=== PATIENT | female | born 1935 | race Caucasian/White ===

== ENCOUNTER → 2016-04-15 | Outpatient (REF) | payer OTHER ==
[~2016-04-15] MED LIST: *BLDWK7; /ALEN7SOL OR; /ESOM40CA OR; /ESOM40CA PO; /LOR25TA OR; /WARF25TA PO; /ZIAC5TA PO; ACTONEL; ACTONEL35 PO; ALPR0.5T3 OR; AMBI10TA PO; AMBI5TAB OR; AMBIEN; AMBIEN10 PO; AMBIENCR PO; AMITRIP25 PO; ANEXIA; ATARAX25 PO; ATARAX50 PO; ATENOLOL50 PO; AVAPRO150 PO; AVELOX PO; AZELASTINE SPRAY; B-6 PO; BACTRIMDS PO; BISO10TA2 OR; BISOPROLOL PO; CALC500T49 PO; CALCCHW12 OR; CEFTIN500 PO; CELE20TA OR; CELEBRE200 PO; CENTRUM SILVER PO; CIPRO500 PO; CRESTOR5 PO; DOXEPIN PO; DOXYCYC100 PO; DURAGE TOPICAL; ERYTHRO PO; EXCETAB OR; FELO5TAB4 OR; FERR325T OR; FERR325T PO; FERROUS325 PO; FISH1000 OR; FLECTOR1.3 TOP; FLEXERIL PO; FLON0.05; FLONASESPR NASAL; FOSAMAX70 PO; FURO20TA2 OR; HCTZ25 PO; HYDROCHLOROTHIAZIDE PO; LASI20TA OR; LESCOLXL80 PO; LEVA500T OR; LIDODERM PATCH; LIDODERM PATCH TOP; LIPITOR20 PO; LIPITOR40 PO; MAVIK2 PO; METAMUCIL; MULTIVIT PO; MYCELEXTRO PO; MYLATAB; NASACORT; NASACORT AQ; NASACORT INH; NASACORT NASALLY; NASONEX NASAL; NEUR100C OR; NEUR400C OR; NEXIUM; NEXIUM40 PO; PRAVACHOL2 PO; QUESTRAN; QUESTRAN PO; ROXICET PO; SERZONE PO; SING10TA31 OR; THERGRAN; TRAM50TA2 OR; TRAZ0DON5 PO; TRAZODON15 PO; TRICOR145 PO; TRICOR160 PO; TUSSIONEX PO; TYLE500T53 OR; TYLENOLCOD PO; VICODIN PO; VICODIN-ES PO; VICODINES TAB OR; VIT D 2000 OR; VITA-113 PO; VITA100T OR; VITA400C OR; VITACAP31 PO; VITAMIN B 6; VITAMIN B-6 PO; VITAMIN E PO; VOLT1GEL EXT; VOLT1GEL TOP; VYTORIN40 PO; ZIAC; ZIAC10 PO; ZOCO40TA OR; ZOCO40TA PO; ZOCOR; ZOCOR40 PO; [UNRECOGNIZED DRUG - CODE] TOPICAL; [UNRECOGNIZED DRUG - OTHER] PO; [UNRECOGNIZED DRUG - OTHER] PO; [UNRECOGNIZED DRUG - OTHER] PO
[2016-04-15 18:47] LABS: BASO % 0.4 % (0.0-1.0); EOS # 0.1 K/mm3 (0.0-0.50); FERRITIN 917 NG/ML (8-252); LARGE UNSTAINED CELL # 0.1 K/mm3 (0.0-0.4); LARGE UNSTAINED CELL % 1.4 % (0.0-4.0); LYMPH # 1.7 K/mm3 (1.5-4.5); LYMPH % 24.2 % (24.0-44.0); MEAN CORPUSCULAR HEMOGLOBIN 30.8 pg (27.0-33.0); MEAN CORPUSCULAR VOLUME 96.1 fl (80.0-96.0); MONO # 0.3 K/mm3 (0.0-0.8); MONO % 3.7 % (0.0-5.0); NEUTROPHILS % 69.3 % (36.0-66.0); PERCENT SATURATION 16.4 % (13.2-37.4); PLATELET COUNT, AUTOMATED 272 k/mm3 (150-450); RED CELL DISTRIBUTION WIDTH 13.2 % (11.5-14.5); TOTAL IRON BINDING CAPACITY 274 UG/DL (250-450); TOTAL PROTEIN 7.2 GM/DL (6.4-8.2); WHITE BLOOD COUNT 7.2 K/mm3 (4.0-10.0)
[2016-04-19 12:55] LABS: ALBUMIN % 58.4 % (55.8-66.1); GAMMA GLOBULIN % 10.9 % (11.1-18.8)
== END ==
LOC: M SFHCPLAZ 15:08
PROVIDERS: ATTEND Family Medicine
DX: D50.9 Iron deficiency anemia, unspecified (principal); R73.01 Impaired fasting glucose; E55.9 Vitamin D deficiency, unspecified
CPT/HCPCS: 36415; 82306; 82728; 83036; 83550; 83970; 84165; 85025; G0463

== ENCOUNTER 2016-06-28 12:15 | Inpatient (IN) | payer OTHER ==
[~2016-06-28] VITALS: Ht 157.5 cm; Wt 77.0 kg
[2016-06-28] MEDS ORDERED: PARO-39 PO (12:45)
[2016-06-28] MEDS ORDERED: CHOL4PKT PO (12:45)
[2016-06-28] MEDS ORDERED: FLUTISP (12:45)
[2016-06-28] MEDS ORDERED: COLA100C3 PO (12:45)
[2016-06-28] MEDS ORDERED: CLON0.5T PO (12:45)
[2016-06-28] MEDS ORDERED: UNIS25TA2 PO (12:45)
[2016-06-28] MEDS ORDERED: CRES40TA PO ×2 (12:45→16:04)
[2016-06-28] MEDS ORDERED: REGL5TAB2 PO (12:45)
[2016-06-28] MEDS ORDERED: BIOT50004 PO (12:45)
[2016-06-28] MEDS ORDERED: SLOWTAB2 PO (12:45)
[2016-06-28] MEDS ORDERED: NS 500 ML IV ONE (13:45)
[2016-06-28 14:02] LABS: BASO % 0.2 % (0.0-1.0); EOS # 0.1 K/mm3 (0.0-0.50); EOS % 0.5 % (0.0-3.0); LARGE UNSTAINED CELL # 0.1 K/mm3 (0.0-0.4); LARGE UNSTAINED CELL % 0.8 % (0.0-4.0); LYMPH # 1.4 K/mm3 (1.5-4.5); LYMPH % 10.2 % (24.0-44.0); MEAN CORPUSCULAR HEMOGLOBIN 31.5 pg (27.0-33.0); MEAN CORPUSCULAR HGB CONC 31.3 g/dl (32.0-36.5); MEAN CORPUSCULAR VOLUME 100.7 fl (80.0-96.0); MONO # 0.7 K/mm3 (0.0-0.8); MONO % 5.2 % (0.0-5.0); NEUTROPHILS # 10.5 K/mm3 (1.8-7.7); NEUTROPHILS % 83.1 % (36.0-66.0); PLATELET COUNT, AUTOMATED 235 k/mm3 (150-450); RED CELL DISTRIBUTION WIDTH 13.1 % (11.5-14.5); WHITE BLOOD COUNT 12.6 K/mm3 (4.0-10.0)
[2016-06-28 14:25] LABS: ALBUMIN 3.6 GM/DL (3.2-5.2); ALBUMIN/GLOBULIN RATIO 1.29 (1.00-1.93); ALKALINE PHOSPHATASE 59 U/L (45-117); ALT/SGPT 18 U/L (12-78); ANION GAP 8 MEQ/L (8-16); AST/SGOT 18 U/L (15-37); BILIRUBIN,DIRECT < 0.1 MG/DL (0.0-0.2); BILIRUBIN,TOTAL 0.3 MG/DL (0.2-1.0); BLOOD UREA NITROGEN 19 MG/DL (7-18); CALCIUM LEVEL 9.4 MG/DL (8.8-10.2); CARBON DIOXIDE LEVEL 28 MEQ/L (21-32); CHLORIDE LEVEL 102 MEQ/L (98-107); CREATININE FOR GFR 0.76 MG/DL (0.55-1.02); GLOMERULAR FILTRATION RATE > 60.0 (>39); GLUCOSE, FASTING 113 MG/DL (83-110); POTASSIUM SERUM 4.4 MEQ/L (3.5-5.1); SODIUM LEVEL 138 MEQ/L (136-145); TOTAL PROTEIN 6.4 GM/DL (6.4-8.2)
--- NOTE | 2016-06-28 14:27 | REP ---
CT HEAD WITHOUT CONTRAST: HISTORY: Altered mental status. COMPARISON: 06/21/2013 An area of decreased attenuation is present in the right thalamus. This represents an old lacunar infarction. Areas of decreased attenuation are present in the periventricular and subcortical white matter. This represent small vessel ischemic disease. There is no intraparenchymal hemorrhage, mass, or midline shift. The ventricular system and cortical sulci are dilated consistent with minimal volume loss. There is no extracerebral collection. The sinuses are clear. IMPRESSION: 1. 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 2. Small vessel ischemic disease. 3. Minimal volume loss. Signed by Clyde Plaza MD 06/28/2016 02:32 P
[2016-06-28 14:37] LABS: ABG BASE EXCESS 0.8 (-2.0-2.0); ABG HCO3 25.2 MEQ/L (22.0-26.0); ABG PARTIAL PRESSURE CO2 39.7 mmHg (35.0-45.0); ABG PARTIAL PRESSURE O2 89.9 mmHg (75.0-100.0); ABG STANDARD HCO3 25.2 MEQ/L (22.0-26.0); ABG TOTAL CO2 26.4 MEQ/L (23.0-31.0); ABG pH (ARTERIAL) 7.421 UNITS (7.350-7.450)
--- NOTE | 2016-06-28 14:39 | REP ---
Portable chest, single AP view, the patient semi upright: Comparison is 08/05/2014. The lung benites are clear. Cardiac size is normal. There is an incomplete inspiratory effort. There is a cervical spine stabilization plate, unchanged. There are multiple surgical clips superimposed over the left upper chest, likely in the left axilla, unchanged. There is osteoarthritis and chronic impingement of the shoulders bilaterally, unchanged. Impression: There are no acute cardiopulmonary findings. Signed by Franki Foster MD 06/28/2016 02:30 P
--- NOTE | 2016-06-28 14:50 | REP ---
RIGHT ANKLE: Four views of the right ankle are performed. There is a nondisplaced fracture of the distal aspect of the fibula. There is widening of the lateral ankle mortise. No other fracture or dislocation is seen. There is inferior calcaneal spurring. IMPRESSION: Nondisplaced fracture of the distal lateral malleolus. Widened lateral mortise. Signed by Franki Best MD 06/28/2016 03:57 P
[2016-06-28] MEDS ORDERED: MORPHINE 2 MG/ML 1ML SYRINGE IV ONE (15:00)
[2016-06-28 15:43] LABS: METHADONE URINE NEGATIVE (NEGATIVE)
[2016-06-28] MEDS ORDERED: EXCETAB42 PO (15:55)
[2016-06-28] MEDS ORDERED: HYDR-3719 PO (15:55)
[2016-06-28] MEDS ORDERED: FOSA70TA PO (15:55)
[2016-06-28] MEDS ORDERED: GABA600T PO (16:01)
[2016-06-28] MEDS ORDERED: FURO20TA2 PO (16:01)
[2016-06-28] MEDS ORDERED: CALCTAB68 PO (16:01)
[2016-06-28] MEDS ORDERED: FERR325T PO (16:01)
[2016-06-28] MEDS ORDERED: MAGN400T5 PO (16:01)
[2016-06-28] MEDS ORDERED: LIDO5TD TOP (16:01)
[2016-06-28] MEDS ORDERED: CHOL4POW4 PO (16:01)
[2016-06-28] MEDS ORDERED: NEXI40CA PO (16:01)
[2016-06-28] MEDS ORDERED: BIOT10005 PO (16:01)
[2016-06-28] MEDS ORDERED: FLON1SPR (16:01)
[2016-06-28] MEDS ORDERED: BISO10TA6 PO (16:01)
[2016-06-28] MEDS ORDERED: PARO20TA3 PO (16:04)
[2016-06-28] MEDS ORDERED: TRAZ100T4 PO (16:04)
[2016-06-28] MEDS ORDERED: LOPE2TAB PO (16:04)
[2016-06-28] MEDS ORDERED: VITA200015 PO (16:06)
[2016-06-28] MEDS ORDERED: VITA10002 PO (16:06)
[2016-06-28] MEDS ORDERED: POTA10CA PO (16:06)
--- NOTE | 2016-06-28 16:27 | REP ---
RIGHT KNEE, FIVE VIEWS: Five views of the right knee were performed. There is no acute fracture or dislocation. Total knee prosthesis is in place with no abnormal adjacent osseous lucency. IMPRESSION: No acute fracture or dislocation. Signed by Franki Best MD 06/29/2016 09:42 A
--- NOTE | 2016-06-28 16:31 | REP ---
PELVIS AND BILATERAL HIPS: AP view of the pelvis and two views of each hip are performed. There is no acute fracture or dislocation. There are degenerative changes of the pubic symphysis with spurring and subchondral sclerosis. There are mild degenerative changes of the hips. There are moderate degenerative changes of the sacroiliac joints. IMPRESSION: No acute fracture or dislocation. Signed by Franki Best MD 06/29/2016 09:42 A
--- NOTE | 2016-06-28 16:47 | REP ---
RIGHT LOWER LEG: AP and lateral views of the right lower leg are performed. There is a nondisplaced fracture of the distal end of the fibula without other evidence of acute fracture or dislocation. IMPRESSION: Nondisplaced fracture distal fibula. Signed by Franki Best MD 06/29/2016 09:42 A
[2016-06-28] MEDS ORDERED: FLUTICASONE PROP 0.05% NASAL SPRAY 16 GM (FLONASE) PRN (17:30)
[2016-06-28] MEDS ORDERED: LOPERAMIDE 2 MG CAP PO PRN (17:30)
[2016-06-28] MEDS ORDERED: EXCEDRIN MIGRAINE TABLET PO PRN (17:30)
[2016-06-28] MEDS ORDERED: ENOXAPARIN 40 MG/0.4 ML SYRINGE (J1650) SC SCH (18:00)
--- NOTE | 2016-06-28 18:25 | HPEPDOC ---
General Date of Admission Jun 28, 2016 at 16:30 Primary Care Physician: Jorge Fischer M.D. Attending Physician: ZOE ELKINS Chief Complaint The patient is a 80-year-old female admitted with a reason for visit of Ankle Fx. Source: Patient, Family, Other (Friend) History of Present Illness Ms. Scherer was brought to the emergency department by her daughter as well as her friend who both accompany her in the ED room. Apparently she was in her usual state of health until yesterday when she began exhibiting extreme confusion. The daughter reports that she was in [employer] grocery store where she got her shopping cart stuck while going around a corner, and then because of confusion she did not know where she was, she did not recognize her daughter, she was unable to get herself "unstuck", and because she had begun to feel some weakness, she was sagging while holding onto the cart, and she required multiple persons and to be able to stand her back on her feet, and get her back to the car. Then, this morning she was getting out of bed, and apparently became weak and just fell down. She did not trip, she did not feel lightheaded or dizzy, she did not lose consciousness, she did not hit her head. After her fall however, she did experience pain in multiple areas of her body including both of her ankles, knees, and hips. An x-ray of her right ankle revealed a nondisplaced lateral malleoli fracture, however the remainder of the x-rays at these sites and did not reveal any additional fractures or serious injuries. CT of the head without contrast reveals an old right thalamic lacunar infarction, small vessel ischemic disease , minimal volume loss. EKG shows sinus rhythm with first-degree AV block which is similar to 08/05/2014. The daughter believes that her increased confusion may be from the patient taking 150 mg of trazodone nightly rather than her usual 100 mg, however she has been on this dose for approximately the past 3 weeks, and she has been on trazodone for a total of 2 months now. The ED already contacted orthopedic surgery, who has already placed her right ankle in a splint Home Medications Scheduled Acetaminophen/Hydrocodone (Hydrocodone/Acetaminophen 10-325 mg) 1 Tab Tab 2 TAB PO BID (Reported) Alendronate Sodium (Fosamax) 70 Mg Tab 70 MG PO QWEEK (Reported) SATURDAYS Biotin (Vitamin H) (Biotin) 1,000 Mcg Tab 1,000 MCG PO DAILY (Reported) Bisoprolol Fumarate (Bisoprolol Fumarate) 10 Mg Tab 10 MG PO DAILY (Reported) Calcium/Vitamin D (Calcium 600 + D 600-400 mg-Unit) 1 Tab Tab 1 TAB PO QHS ( Reported) Cholecalciferol (Vitamin D) 2,000 Unit Tab 2,000 UNIT PO DAILY (Reported) Cholestyramine (Cholestyramine) 4 Gm Pow 4 GM PO BID (Reported) Cyanocobalamin (Vitamin B-12) 1,000 Mcg Tab 1,000 MCG PO DAILY (Reported) Esomeprazole Magnesium Trihydr (Nexium) 40 Mg Cap 40 MG PO BID (Reported) Ferrous Sulfate (Ferrous Sulfate) 325 Mg Tab 325 MG PO BID (Reported) Furosemide (Furosemide) 20 Mg Tab 20 MG PO DAILY (Reported) Gabapentin (Gabapentin) 600 Mg Tab 1,200 MG PO BID (Reported) Magnesium Oxide (Magnesium Oxide 400) 400 Mg Tab 400 MG PO DAILY (Reported) Paroxetine (Paroxetine HCl) 20 Mg Tab 20 MG PO DAILY (Reported) Potassium Chloride (Klor-Con M10) 10 Meq Tabcr 10 MEQ PO DAILY (Reported) Rosuvastatin Calcium (Crestor) 40 Mg Tab 40 MG PO QHS (Reported) Trazodone HCl (Trazodone HCl) 100 Mg Tab 150 MG PO QHS (Reported) IS PRESCRIBED ONLY 100MG QHS. BUT HAS BEEN TAKING 150MG QHS Scheduled PRN (Excedrin Tension Headache 500-65 mg) 1 Tab Tab 1 TAB PO Q4H PRN PRN PAIN ( Reported) (Flonase Allergy Relief) 50 Mcg/Act Spr 1 SPRAY NA BID PRN PRN ALLERGIES ( Reported) Lidocaine (Lidocaine) 5 % Pad 2 PATCH TOP DAILY PRN PRN PAIN (Reported) APPLY TO LOWER BACK - PATIENT HAS RX FOR THIS MEDICATION BUT IS HAVING A HARD TIME GETTING DUE TO INS... STATES THAT THEY HELP HER A LOT AND WOULD LIKE TO START GETTING AGAIN Loperamide HCl (Loperamide HCl) 2 Mg Tab 2 MG PO PRN PRN PRN DIARRHEA (Reported ) Allergies Coded Allergies: Penicillins (Verified Allergy, Intermediate, RASH, 07/02/12) Penicillins Cross Reactors (Verified Allergy, Intermediate, RASH, 07/02/12) Aspirin (Verified Adverse Reaction, Severe, CAUSED SEVERE BRUISING, 07/02/12 ) Cyclobenzaprine (Verified Adverse Reaction, Unknown, to 10mg dose only, 06/28/16) Past Medical History Medical History The patient currently is a poor historian, and her daughter is not very familiar with her medical problems either, therefore history is obtained from a [employer]. Allergic rhinitis/chronic sinusitis status post sinus surgery with Dr. Mello 1997 Hypertension Depression/anxiety disorder GERD history of gastritis, most recent EGD 2012 with dilation, hyperplastic polyps-[place] Chronic idiopathic diarrhea Iron deficiency anemia History of melanoma excised by Dr. Dowling 1977 Impaired fasting glucose Osteoporosis Insomnia History of facial AK's lumbar DJD Bilateral supraspinatus tendinitis Bilateral carpal tunnel syndrome Vitamin D deficiency Adenomatous polyp by colonoscopy August 2008, and diverticulosis 04/2012-[facility] Mild AR, MR/LAD 3.8 cm/mildly dilated aortic root/diastolic dysfunction by TTE -[place] Minimal , volume loss, old right thalamic CVA 05/2013 CT head Cervical DJD status post C6 through 8 ACDF 09/14/2013-[place] Lumbar DJD Surgical History Total hysterectomy 1985 Left ring/pinky fingers" 1974 Right TKR 2008 Tonsillectomy/adenoidectomy 1958 Sinus surgery 1998 D&C 1974 Bladder suspension 1994 Cholecystectomy 2003 Carpal tunnel release left 2010 ACDF-[place] 2013 PLDF-[place]-(L2-S1 decompression, L4-S1 fusion) 2014 Family History Father at 73, alcoholic liver disease Mother at 59, breast cancer with double mastectomies She had 2 brothers, 4 sisters, 3 sons, 3 daughters Brother at age 63 was a smoker with COPD and lung cancer. Sister at age 57 with pulmonary embolus Sister at age 50 for COPD, smoker One daughter had arthritis and knee problems, otherwise the remainder of her children have no known medical problems Social History * Smoker: non-smoker Alcohol: Denies Drugs: denies Recent Travel/Sick Contacts: Denies: Recent sick contacts, Recent travel Review of Symptoms Constitutional: Reports: Chills (chronic), Lethargy, Weakness, Denies: Fever, Malaise, Night Sweats Eyes: Denies: Pain, Vision change Pulmonary: Denies: Cough, Dyspnea Cardiovascular: Denies: Chest Pain, Lt Headedness, Orthopnea, Palpitations, Paroxysmal Noc. Dyspnea Gastrointestinal: Reports: Diarrhea (chronic), Denies: Abdominal Pain, Nausea, Vomiting Genitourinary: Denies: Dysuria, Frequency, Incontinence, Retention Hematologic: Denies: Bleeding Excessively, Bruising Musculoskeletal: Reports: Back Pain, Foot Pain, Leg Pain, Neck Pain Neurological: Reports: Confusion, Denies: Change in speech, Numbness, Weakness Psych: Reports: Memory Issues, Mood Normal, Denies: Thoughts of Harming Other, Thoughts of Self Harm Physical Examination General Exam: Positive: Alert, No Acute Distress Eye Exam: Positive: Conjunctiva & lids normal, EOMI, PERRLA, Negative: Sclera icteric ENT Exam: Positive: Atraumatic, Mucous membr. moist/pink, Pharynx Normal Neck Exam: Positive: Supple, Negative: JVD, thyromegaly Chest Exam: Positive: Clear to auscultation, Normal air movement Heart Exam: Positive: Normal S1, Normal S2, Rate Normal, Regular Rhythm, Negative: Murmurs, Rubs Telemetry: Positive: AV Block (first-degree AV block), No significant arrhythmia, Sinus Abdomen Exam: Positive: Normal bowel sounds, Soft, Negative: Hepatospenomegaly, Tenderness Extremity Exam: Positive: Normal pulses, Swelling (left ankle does have some swelling), Tenderness (right ankle is currently in a splint), Negative: Clubbing, Cyanosis, Edema Skin Exam: Positive: Nl turgor and temperature, Negative: Breakdown, Lesion Neuro Exam: Positive: Cranial Nerves 3-12 NL, Normal Speech Psych Exam: Positive: Mood NL, Negative: Mental status NL, Oriented x 3 (she believes that it's 1978, although she does know her name, date of , and she knows that she is in house of the [facility]) Vital Signs Temperature 98.3, pulse 76, respiratory rate 18, blood pressure 112/54, pulse oximetry 94% on room air Laboratory Data Labs 24H Laboratory Tests 2 06/28/16 13:05: Acetaminophen Level 6.5L, Aspartate Amino Transf (AST/SGOT) 18, Alanine Aminotransferase (ALT/SGPT) 18, Alkaline Phosphatase 59, Total Bilirubin 0.3, Direct Bilirubin < 0.1, Albumin 3.6, Albumin/Globulin Ratio 1.29, Ammonia 20, Anion Gap 8, White Blood Count 12.6H, Red Blood Count 3.44L, Hemoglobin 10.8L, Hematocrit 34.7L, Mean Corpuscular Volume 100.7H, Mean Corpuscular Hemoglobin 31.5, Mean Corpuscular Hemoglobin Concent 31.3L, Red Cell Distribution Width 13.1, Platelet Count 235, Neutrophils (%) (Auto) 83.1H, Lymphocytes (%) (Auto) 10.2L, Monocytes (%) (Auto) 5.2H, Eosinophils (%) (Auto) 0.5, Basophils (%) ( Auto) 0.2, Neutrophils # (Auto) 10.5H, Lymphocytes # (Auto) 1.4L, Monocytes # ( Auto) 0.7, Eosinophils # (Auto) 0.1, Basophils # (Auto) 0.0, Calcium Level 9.4, Creatine Kinase MB 2.0, Creatine Kinase MB Relative Index 1.27, Ethyl Alcohol Level < 0.003, Glomerular Filtration Rate > 60.0, Large Unclassified Cells # 0.1 , Large Unclassified Cells % 0.8, Salicylates Level < 1.7L, Thyroid Stimulating Hormone (TSH) 0.888, Total Creatine Kinase 157, Total Protein 6.4, Troponin I < 0.02 06/28/16 14:23: Arterial Blood pH 7.421, Arterial Blood Partial Pressure CO2 39.7, Arterial Blood Partial Pressure O2 89.9, Arterial Blood Total CO2 26.4, Arterial Blood HCO3 25.2, Arterial Blood Base Excess 0.8, Arterial Blood Oxygen Saturation 97.5 , Blood Gas Bicarbonate Standard 25.2 06/28/16 14:33: Bedside Glucose (Misc Panel) 115H 06/28/16 14:36: Lactic Acid Level 1.0 06/28/16 15:13: Urine Amorphous Sediment , Urine Amphetamines Screen NEGATIVE, Urine Benzodiazepines Screen NEGATIVE, Urine Opiates Screen POSITIVEH, Urine Appearance CLEAR, Urine Color YELLOW, Urine pH 5.0, Urine Specific [place] 1.014 , Urine Protein NEGATIVE, Urine Glucose (UA) NEGATIVE, Urine Ketones NEGATIVE, Urine Urobilinogen 0.2, Urine Bilirubin NEGATIVE, Urine Leukocyte Esterase NEGATIVE, Urine Bacteria (Auto) NEGATIVE, Urine Barbiturates Screen NEGATIVE, Urine Blood NEGATIVE, Urine Calcium Carbonate Cryst(Auto) , Urine Calcium Oxalate Cryst (Auto) , Urine Calcium Phosphate Delilah (Auto) , Urine Cannabinoids Screen NEGATIVE, Urine Cellular Casts , Urine Cocaine Metabolite Screen NEGATIVE , Urine Cystine Crystals , Urine Granular Casts (Auto) , Urine Hyaline Casts ( Auto) 0, Urine Leucine Crystals , Urine Methadone Screen NEGATIVE, Urine Mucus ( Auto) SMALL, Urine Nitrite NEGATIVE, Urine Oval Fat Bodies (Auto) , Urine Phencyclidine Screen NEGATIVE, Urine RBC (Auto) 1, Urine Renal Epithelial Cells , Urine Sperm (Auto) , Urine Squamous Epithelial Cells 0, Urine Transitional Epithelial Cells , Urine Trichomonas (Auto) , Urine Triple Phosphate Cryst (Auto ) , Urine Tyrosine Crystals , Urine Uric Acid Crystals (Auto) , Urine WBC (Auto ) 1, Urine Waxy Casts (Auto) , Urine Yeast-Like Cells (Auto) CBC/BMP Laboratory Tests 06/28/16 13:05 Red Blood Count 3.44 L, Mean Corpuscular Volume 100.7 H, Mean Corpuscular Hemoglobin 31.5, Mean Corpuscular Hemoglobin Concent 31.3 L, Red Cell Distribution Width 13.1, Neutrophils (%) (Auto) 83.1 H, Lymphocytes (%) (Auto) 10.2 L, Monocytes (%) (Auto) 5.2 H, Eosinophils (%) (Auto) 0.5, Basophils (%) ( Auto) 0.2, Neutrophils # (Auto) 10.5 H, Lymphocytes # (Auto) 1.4 L, Monocytes # (Auto) 0.7, Eosinophils # (Auto) 0.1, Basophils # (Auto) 0.0 Microbiology Microbiology 06/28/16 Urine Culture, Received Pending Problems (1) Altered mental status Status: Acute (2) Ankle fracture, right Status: Acute Problem Text: Orthopedic surgeons have seen and evaluated her in the ED, the report is not available at this time. Will defer to them for her activity orders. Her right ankle is already splinted. (3) Hypertension Status: Chronic (4) Anxiety and depression Status: Chronic (5) Iron deficiency anemia Status: Chronic (6) Diarrhea Status: Chronic (7) Impaired fasting glucose Status: Chronic (8) Osteoporosis Status: Chronic (9) Insomnia Status: Chronic (10) Degenerative disc disease Status: Chronic (11) GERD (gastroesophageal reflux disease) Status: Chronic (12) Vitamin D deficiency Status: Chronic Plan / VTE VTE Prophylaxis Ordered?: Yes (Lovenox) Plan Plan Urine tox screen is appropriately positive for opiates, however the remainder is negative, UA is unremarkable (urine culture is pending), CT of the head is unremarkable for an etiology of confusion, chest x-ray is negative for acute findings, CMP shows normal liver enzymes, normal lactic acid, normal electrolytes, and normal cardiac enzymes, and a normal TSH, normal ammonia level , and her fingerstick glucose was found to be 115. ABG is within normal limits , CBC is only positive for leukocytosis which may be a stress reaction associated with her fractured ankle. We'll check a vitamin B12 and folate as well as an RPR for additional causes of altered mental status/advanced dementia, however, it is unlikely that these will reveal an etiology of her acute altered mental state. It is possible that her condition is caused by the increased dose of trazodone that she has been on, however since she has been on this increased dose for approximately 3 weeks, this may not be the causative factor. The daughter does not actually know when she started taking this increased dose, and 3 weeks is only as reported by the patient, therefore this history is questionable. Will admit the patient to [facility] for observation. We will hold her trazodone at this time, she has been on chronic long-term opiates since she has had all of her back and neck surgeries, and she has never had any prior episodes of altered mental status, therefore we will continue this for pain control. Her BUN was elevated upon admission, she was given a 500 mL bolus of normal saline, however clinically she does not appear to be significantly dehydrated and therefore we will continue her small dose of daily Lasix, and recheck her labs in the morning Attending Note Attending Note I, Zoe Elkins, have seen and examined the above patient and agree with the assessment and plan as documented above. Additionally, given the old lacunar infarct, and small vessel disease seen on the CT of her head, I wonder if potentially this represents another stepwise progression of possible underlying vascular dementia. If the patient does not improve with the holding of her trazodone, an MRI could be considered to rule out any acute infarct. SULAIMAN DUONG DO Jun 28, 2016 18:25 ZOE ELKINS Jun 28, 2016 20:56
[2016-06-28 19:34] LABS: MAGNESIUM LEVEL 1.9 MG/DL (1.8-2.4)
[2016-06-28 20:21] LABS: FOLATE > 24.0 NG/ML (>5.4); VITAMIN B12 LEVEL 1164 PG/ML (247-911)
--- NOTE | 2016-06-28 20:49 | CR ---
DATE OF CONSULTATION: 06/28/2016 REASON FOR CONSULTATION: Fall with right ankle pain. HISTORY OF PRESENT ILLNESS: 80-year-old female who apparently tripped and twisted her ankle at [employer], was able to ambulate home and then sometime today was confused or dizzy for unclear reasons and fell once again and was unable to walk so her family brought her here to [facility] and she was evaluated extensively by the emergency room staff and was found to have a right ankle fracture and I was called because of that finding. She only complains of isolated soreness of the outside aspect of the right ankle with some swelling. She does not complain of pain in her hips or left leg or her upper extremities. There is no new onset complaints of numbness or tingling in her upper or lower extremities but the family members do feel that she does not seem to be quite herself, she seems to be somewhat confused. Normally she is an independent ambulator, has a total knee arthroplasty on the right side done by Dr. Alan. She also has recovered from surgical spine surgery by Dr. Light and lumbar spine by Dr. Light. PAST MEDICAL HISTORY: Otherwise she has a past medical history of multiple falls in the past, chronic back pain, anxiety, history of high blood pressure, hypercholesterolemia, osteoporosis, gastroesophageal reflux disease, chronic diarrhea, anemia, history of melanoma. MEDICATIONS: Her medications include Nexium, magnesium, furosemide, Paxil, iron, Micro K, cholestyramine, Lasix, Fosamax, Crestor, bisoprolol. ALLERGIES: To medication PENICILLIN, ASPIRIN, DOXYCYCLINE, LIPITOR, FLEXERIL, ZANAFLEX, [place] PRO, AMBIEN. PAST SURGICAL HISTORY: Colonoscopy, history of right shoulder dislocation, cervical spine fusion, lumbar spine fusion, history of melanoma with multiple surgical interventions in her left back area with multiple skin grafts. Hysterectomy, right total knee arthroplasty, tonsils and adenoids, D C, hysterectomy, bladder suspension, cholecystectomy, left carpal tunnel release. REVIEW OF SYSTEMS: Chronic right shoulder pain, otherwise per the history of present illness. SOCIAL HISTORY: She does not smoke or drink alcohol. She lives with her . She has 3 daughters and 3 sons and 4 sisters and 2 brothers. When I examined her, she is a pleasant, alert female with some mild confusion but otherwise she appears to be complaining only f isolated soreness of the right ankle. Her temperature is 98.3, blood pressure 112/54, pulse 76, respirations 18, Oxygen sat on room air 94%. HEENT EXAM: Benign. NECK: Non-tender. LEFT HAND: She is missing her small and ring finger but she can make a full fist and extend her fingers otherwise, as she can on the opposite right hand. She does not have tingling or numbness in her upper extremities. She has difficulty elevating her right shoulder over her head with chronic troubles because of prior dislocation. The left shoulder she can elevate up over her head. HIPS: Non-tender to internal and external rotation and log rolling. EXTREMITIES: She has a healed right knee incision that is not swollen, it is stable. Distally, she has a posterior splint on her right ankle with a good dorsalis pedis pulse. She can move her toes with normal sensation. There is some swelling and tenderness on both sides of that right ankle. Left lower extremity otherwise is benign. LABORATORY: Showed a white count of 12.6, hematocrit 34.7, platelets of 235. Sodium 138, potassium 4.4, chloride 102, bicarbonate 28, BUN 19, creatinine 0.76. Sugar 113. Calcium 9.4. Liver function tests were unremarkable. Lactic acid was 1. Toxicology was negative except for opiates, probably from her recent pain medication. IMAGING: X-rays of her pelvis, hips, right femur and right tibia and fibula and her ankle shows there a small nondisplaced fracture of the distal fibula with some evidence of degenerative change in the right ankle. Reports some lateral joint space widening, but appears chronic secondary to her degenerative change. I feel this is generally intact. IMPRESSION: Right ankle fracture distal fibula that is nondisplaced. I would recommend nonsurgical management. She is in a posterior splint, probably get her into a Cam type walking boot with assistance of therapy when she is stable and her medical condition is appropriate for that. Otherwise we will keep her elevated for swelling control.
[2016-06-28] MEDS: **NOTE PATIENT COMMENT** MISC XX SCH (21:00)
[2016-06-28] MEDS: CHOLESTYRAMINE 4 GM PWD PKT PO SCH (21:23)
[2016-06-28] MEDS: GABAPENTIN 400 MG CAP PO SCH (21:24)
[2016-06-28] MEDS: CALCIUM/VITAMIN D 500 MG TAB PO SCH (21:25)
[2016-06-28] MEDS: PANTOPRAZOLE 40MG TAB (PROTONIX) PO SCH (21:25)
[2016-06-28] MEDS: FERROUS SULFATE 325MG TAB PO SCH (21:25)
[2016-06-28] MEDS: ROSUVASTATIN 10 MG TAB (CRESTOR) PO SCH (21:25)
[2016-06-28] MEDS: NORCO, ANEXSIA 5/325MG TABLET (HYDROcodone/ACETAMINOPHEN) PO SCH (21:32)
--- NOTE | 2016-06-28 21:49 | ECGEPIP ---
Stationary ECG Study [facility] - ED Test Date: 2016-06-28 Pat Name: WALDO ROMO Department: Room: - Gender: F Acting Professor: JYang : [id number] Requested By: MAHESH Beal Order Number: [id number] Reading MD: Devora Correa Measurements Intervals [place] Rate: 70 P: 12 NE: 223 QRS: 11 QRSD: 74 T: 11 QT: 348 QTc: 377 Interpretive Statements SINUS RHYTHM WITH FIRST DEGREE AV BLOCK SIMILAR 08/05/14 Electronically Signed On 06-28-2016 21:49:29 EDT by Devora Correa
[2016-06-28 22:00] VITALS: BP_SYST 150; BP_SYST 191; BP_DIAS 72; BP_DIAS 85
[2016-06-29] MEDS: ACETAMINOPHEN TAB 650MG DOSE (2X325MG) PO PRN (03:22)
[2016-06-29 06:00] VITALS: BP_SYST 157; BP_DIAS 74; BP_DIAS 90
[2016-06-29] MEDS: NORCO, ANEXSIA 5/325MG TABLET (HYDROcodone/ACETAMINOPHEN) PO SCH ×4 (06:08→18:03)
[2016-06-29 07:13] LABS: MEAN CORPUSCULAR HEMOGLOBIN 31.9 pg (27.0-33.0); MEAN CORPUSCULAR HGB CONC 32.8 g/dl (32.0-36.5); MEAN CORPUSCULAR VOLUME 97.4 fl (80.0-96.0); RED CELL DISTRIBUTION WIDTH 13.2 % (11.5-14.5); WHITE BLOOD COUNT 16.8 K/mm3 (4.0-10.0)
[2016-06-29 08:24] LABS: ANION GAP 7 MEQ/L (8-16); BLOOD UREA NITROGEN 11 MG/DL (7-18); CALCIUM LEVEL 9.4 MG/DL (8.8-10.2); CARBON DIOXIDE LEVEL 28 MEQ/L (21-32); CHLORIDE LEVEL 103 MEQ/L (98-107); CREATININE FOR GFR 0.66 MG/DL (0.55-1.02); GLOMERULAR FILTRATION RATE > 60.0 (>39); GLUCOSE, FASTING 141 MG/DL (83-110); POTASSIUM SERUM 3.8 MEQ/L (3.5-5.1); SODIUM LEVEL 138 MEQ/L (136-145)
--- NOTE | 2016-06-29 08:46 | IPNPDOC ---
Subjective Date Seen The patient was seen on 06/29/16. Subjective Chief Complaint/HPI Pt c/o achiness in her R foot/ankle. She denies other concerns. States that she fell and broke her ankle that is why it hurts. General: Denies: Fatigue Constitutional: Denies: Chills, Fever ENT: Denies: Head Aches Pulmonary: Denies: Cough, Dyspnea Cardiovascular: Denies: Chest Pain, Palpitations Gastrointestinal: Denies: Diarrhea, Nausea, Vomiting Musculoskeletal: Denies: Back Pain, Neck Pain Neurological: Denies: Weakness Psych: Reports: Memory Issues, Mood Normal Objective Physical Examination General Exam: Positive: Alert, No Acute Distress ENT Exam: Positive: Mucous membr. moist/pink Neck Exam: Positive: +2 carotid pulse wo bruit, Lymphadenopathy, Other, Supple , thyromegaly, Negative: JVD Chest Exam: Positive: Clear to auscultation, Normal air movement Heart Exam: Positive: Normal S1, Normal S2, Rate Normal, Regular Rhythm, Negative: Murmurs, Rubs Abdomen Exam: Positive: Normal bowel sounds, Soft, Negative: Hepatospenomegaly, Tenderness Extremity Exam: Positive: Normal pulses, Swelling (left ankle does have some swelling), Tenderness (right ankle is currently in a splint), Negative: Clubbing, Cyanosis, Edema Skin Exam: Positive: Nl turgor and temperature, Negative: Breakdown, Lesion Neuro Exam: Positive: Cranial Nerves 3-12 NL, Normal Speech Psych Exam: Positive: Mood NL, Negative: Mental status NL, Oriented x 3 (she believes that it's 1982, although she does know her name, date of , and she knows that she is in house of the [facility]) Assessment /Plan Problems (1) Altered mental status Status: Acute Response to Treatment: Stable (she believes that it's 1982, although she does know her name, date of , and she knows that she is in house of the [facility]) Problem Text: 06/29 CT head Neg, MS baseline not clear. At this time, she is aware of her circumstances aside from not knowing the year. She offers that she hasn't been able to answer that in sometime. JFW: met with [facility], states pt very confused, "twitching" at times, c/o JORGE since admission. Pt also states her "neck hurts" (no rigidity, no meningeal signs on exam). Will get LP, ? encephalitis/meningitis JFW: radiology unable to do LP until tomorrow, prob in evening (not acceptable) . Called neuro, spoke with Dr Rosa, he advises have anesthesia do LP. Spoke with Dr Dave, he agrees to see pt, case discussed (2) Fever Status: Acute Problem Specific Plan: Monitor Clinically Problem Text: Temp this am 101.1, WBC increased today from 12 to 16.8, CXR done 06/28 Neg, Urine culture pending, check Flu swab. (3) Ankle fracture, right Status: Acute Problem Text: 06/29 - Currently in Splint, Ortho recommended Cam type walking boot, ambulation, PT eval. 06/28 Orthopedic surgeons have seen and evaluated her in the ED, the report is not available at this time. Will defer to them for her activity orders. Her right ankle is already splinted. (4) Hypertension Status: Chronic Response to Treatment: Stable Problem Text: Monitor pressures, cont with Zebeta for now. (5) Anxiety and depression Status: Chronic Problem Specific Plan: Monitor Clinically (6) Iron deficiency anemia Status: Chronic Response to Treatment: Stable Problem Specific Plan: Monitor Clinically Problem Text: Baseline Hgb 11 - 12. (7) Insomnia Status: Chronic Response to Treatment: Stable Problem Specific Plan: Monitor Clinically Problem Text: Per H & P trazodone increased recently for sleep, it appears this order was generated in March of 2016. Plan/VTE VTE Prophylaxis Ordered?: Yes (Lovenox) Plan/Urinary Catheter Reason for insertion/continuin: Patient request VS, I&O, 24H, [facility] Vital Signs/I&O Vital Signs Date Time Temp Pulse Resp B/P Pulse Ox O2 Delivery O2 Flow Rate FiO2 06/29/16 06:08 18 06/29/16 06:00 104 157/90 06/29/16 06:00 101.1 96 Room Air I&O- Last 24 Hours up to 6 AM 06/29/16 06:00 Intake Total 740 ml Output Total 225 ml Balance 515 ml Laboratory Data 24H LABS Laboratory Tests 2 06/28/16 13:05: Acetaminophen Level 6.5L, Aspartate Amino Transf (AST/SGOT) 18, Alanine Aminotransferase (ALT/SGPT) 18, Alkaline Phosphatase 59, Total Bilirubin 0.3, Direct Bilirubin < 0.1, Albumin 3.6, Albumin/Globulin Ratio 1.29, Ammonia 20, Anion Gap 8, White Blood Count 12.6H, Red Blood Count 3.44L, Hemoglobin 10.8L, Hematocrit 34.7L, Mean Corpuscular Volume 100.7H, Mean Corpuscular Hemoglobin 31.5, Mean Corpuscular Hemoglobin Concent 31.3L, Red Cell Distribution Width 13.1, Platelet Count 235, Neutrophils (%) (Auto) 83.1H, Lymphocytes (%) (Auto) 10.2L, Monocytes (%) (Auto) 5.2H, Eosinophils (%) (Auto) 0.5, Basophils (%) ( Auto) 0.2, Neutrophils # (Auto) 10.5H, Lymphocytes # (Auto) 1.4L, Monocytes # ( Auto) 0.7, Eosinophils # (Auto) 0.1, Basophils # (Auto) 0.0, Calcium Level 9.4, Creatine Kinase MB 2.0, Creatine Kinase MB Relative Index 1.27, Ethyl Alcohol Level < 0.003, Glomerular Filtration Rate > 60.0, Large Unclassified Cells # 0.1 , Large Unclassified Cells % 0.8, Salicylates Level < 1.7L, Thyroid Stimulating Hormone (TSH) 0.888, Total Creatine Kinase 157, Total Protein 6.4, Troponin I < 0.02 06/28/16 14:23: Arterial Blood pH 7.421, Arterial Blood Partial Pressure CO2 39.7, Arterial Blood Partial Pressure O2 89.9, Arterial Blood Total CO2 26.4, Arterial Blood HCO3 25.2, Arterial Blood Base Excess 0.8, Arterial Blood Oxygen Saturation 97.5 , Blood Gas Bicarbonate Standard 25.2 06/28/16 14:33: Bedside Glucose (Misc Panel) 115H 06/28/16 14:36: Lactic Acid Level 1.0 06/28/16 15:13: Urine Amorphous Sediment , Urine Amphetamines Screen NEGATIVE, Urine Benzodiazepines Screen NEGATIVE, Urine Opiates Screen POSITIVEH, Urine Appearance CLEAR, Urine Color YELLOW, Urine pH 5.0, Urine Specific [place] 1.014 , Urine Protein NEGATIVE, Urine Glucose (UA) NEGATIVE, Urine Ketones NEGATIVE, Urine Urobilinogen 0.2, Urine Bilirubin NEGATIVE, Urine Leukocyte Esterase NEGATIVE, Urine Bacteria (Auto) NEGATIVE, Urine Barbiturates Screen NEGATIVE, Urine Blood NEGATIVE, Urine Calcium Carbonate Cryst(Auto) , Urine Calcium Oxalate Cryst (Auto) , Urine Calcium Phosphate Delilah (Auto) , Urine Cannabinoids Screen NEGATIVE, Urine Cellular Casts , Urine Cocaine Metabolite Screen NEGATIVE , Urine Cystine Crystals , Urine Granular Casts (Auto) , Urine Hyaline Casts ( Auto) 0, Urine Leucine Crystals , Urine Methadone Screen NEGATIVE, Urine Mucus ( Auto) SMALL, Urine Nitrite NEGATIVE, Urine Oval Fat Bodies (Auto) , Urine Phencyclidine Screen NEGATIVE, Urine RBC (Auto) 1, Urine Renal Epithelial Cells , Urine Sperm (Auto) , Urine Squamous Epithelial Cells 0, Urine Transitional Epithelial Cells , Urine Trichomonas (Auto) , Urine Triple Phosphate Cryst (Auto ) , Urine Tyrosine Crystals , Urine Uric Acid Crystals (Auto) , Urine WBC (Auto ) 1, Urine Waxy Casts (Auto) , Urine Yeast-Like Cells (Auto) 06/28/16 18:24: Folate > 24.0, Magnesium Level 1.9, Syphilis Serology NONREACTIVE, Vitamin B12 Level 1164H 06/29/16 07:44: Anion Gap 7L, Blood Urea Nitrogen 11, Creatinine 0.66, Sodium Level 138, Potassium Level 3.8, Chloride Level 103, Carbon Dioxide Level 28, Calcium Level 9.4, Glomerular Filtration Rate > 60.0 CBC/BMP Laboratory Tests 06/28/16 13:05 Red Blood Count 3.44 L, Mean Corpuscular Volume 100.7 H, Mean Corpuscular Hemoglobin 31.5, Mean Corpuscular Hemoglobin Concent 31.3 L, Red Cell Distribution Width 13.1, Neutrophils (%) (Auto) 83.1 H, Lymphocytes (%) (Auto) 10.2 L, Monocytes (%) (Auto) 5.2 H, Eosinophils (%) (Auto) 0.5, Basophils (%) ( Auto) 0.2, Neutrophils # (Auto) 10.5 H, Lymphocytes # (Auto) 1.4 L, Monocytes # (Auto) 0.7, Eosinophils # (Auto) 0.1, Basophils # (Auto) 0.0 06/29/16 06:29 Red Blood Count 3.59 L, Mean Corpuscular Volume 97.4 H, Mean Corpuscular Hemoglobin 31.9, Mean Corpuscular Hemoglobin Concent 32.8, Red Cell Distribution Width 13.2 06/29/16 07:44 Calcium Level 9.4 Microbiology Microbiology 06/28/16 Urine Culture, Received Pending DORCAS GUY PA-C Jun 29, 2016 08:46 Kwasi Bower MD Jun 29, 2016 13:01
[2016-06-29] MEDS ORDERED: LIDOCAINE 5% (LIDODERM) PATCH TOP PRN (09:00)
[2016-06-29] MEDS ORDERED: ENOXAPARIN 40 MG/0.4 ML SYRINGE (J1650) SC SCH (09:00)
[2016-06-29] MEDS: CHOLESTYRAMINE 4 GM PWD PKT PO SCH ×2 (09:04→20:43)
[2016-06-29] MEDS: POTASSIUM CHLORIDE 10 MEQ SR TABLET PO SCH (09:04)
[2016-06-29] MEDS: FUROSEMIDE 20 MG TAB PO SCH (09:05)
[2016-06-29] MEDS: GABAPENTIN 400 MG CAP PO SCH ×2 (09:05→20:43)
[2016-06-29] MEDS: PARoxetine 20 MG TAB PO SCH (09:05)
[2016-06-29] MEDS: MAGNESIUM OXIDE 400 MG TAB (MAG-OX) PO SCH (09:05)
[2016-06-29] MEDS: VITAMIN D 1,000 INTERNATIONAL UNITS TABLET PO SCH (09:05)
[2016-06-29] MEDS: BISOPROLOL FUMARATE 10 MG TAB PO SCH (09:05)
[2016-06-29] MEDS: FERROUS SULFATE 325MG TAB PO SCH ×2 (09:05→20:43)
[2016-06-29] MEDS: CYANOCOBALAMIN 500 MCG TAB PO SCH (09:06)
[2016-06-29] MEDS: PANTOPRAZOLE 40MG TAB (PROTONIX) PO SCH ×2 (09:06→20:43)
[2016-06-29 14:00] VITALS: BP_SYST 132; BP_SYST 136; BP_DIAS 70; BP_DIAS 75
[2016-06-29 15:03] LABS: GLUCOSE CSF 90 MG/DL (40-75)
[2016-06-29 15:11] LABS: RBC CSF AUTO 0 /mm3 (0-0); WBC CSF AUTO 1 /mm3 (0-10)
[2016-06-29 15:13] LABS: APPEARANCE, CSF CLEAR (CLEAR); COLOR, CSF COLORLESS (COLORLESS); CSF DIFF IF INDICATED? NO (NO); CSF TUBE# CELL CNT TUBE 3
[2016-06-29 15:14] LABS: CSF DILUENT LOT # 6165
[2016-06-29] MEDS: CALCIUM/VITAMIN D 500 MG TAB PO SCH (20:43)
[2016-06-29] MEDS: ROSUVASTATIN 10 MG TAB (CRESTOR) PO SCH (20:43)
[2016-06-29] MEDS: **NOTE PATIENT COMMENT** MISC XX SCH (20:43)
[2016-06-29 22:00] VITALS: BP_SYST 139; BP_SYST 147; BP_DIAS 70; BP_DIAS 73
[2016-06-29] MEDS ORDERED: ENOXAPARIN 40 MG/0.4 ML SYRINGE (J1650) SC ONE (22:00)
[2016-06-30] MEDS: NORCO, ANEXSIA 5/325MG TABLET (HYDROcodone/ACETAMINOPHEN) PO SCH ×5 (00:01→23:09)
[2016-06-30 06:00] VITALS: BP_SYST 175; BP_SYST 178; BP_DIAS 81; BP_DIAS 83
[2016-06-30 07:31] LABS: MEAN CORPUSCULAR HEMOGLOBIN 31.4 pg (27.0-33.0); MEAN CORPUSCULAR HGB CONC 31.6 g/dl (32.0-36.5); MEAN CORPUSCULAR VOLUME 99.3 fl (80.0-96.0); RED CELL DISTRIBUTION WIDTH 13.1 % (11.5-14.5); WHITE BLOOD COUNT 11.7 K/mm3 (4.0-10.0)
[2016-06-30 07:38] LABS: ANION GAP 4 MEQ/L (8-16); BLOOD UREA NITROGEN 16 MG/DL (7-18); CALCIUM LEVEL 9.8 MG/DL (8.8-10.2); CARBON DIOXIDE LEVEL 32 MEQ/L (21-32); CHLORIDE LEVEL 104 MEQ/L (98-107); CREATININE FOR GFR 0.72 MG/DL (0.55-1.02); GLOMERULAR FILTRATION RATE > 60.0 (>39); GLUCOSE, FASTING 125 MG/DL (83-110); POTASSIUM SERUM 3.8 MEQ/L (3.5-5.1); SODIUM LEVEL 140 MEQ/L (136-145)
--- NOTE | 2016-06-30 10:28 | IPNPDOC ---
Subjective Date Seen The patient was seen on 06/30/16. Subjective Chief Complaint/HPI The patient is a 80-year-old female admitted with a reason for visit of Ankle Fx. Events since last encounter Less confused, but vague at times. Taking Center for ankle pain. Reports urinary frequency and pressure after voiding Constitutional: Denies: Chills, Fever Pulmonary: Denies: Cough, Dyspnea Cardiovascular: Denies: Chest Pain, Orthopnea, Palpitations Gastrointestinal: Denies: Abdominal Pain, Constipation, Diarrhea, Nausea, Vomiting Genitourinary: Reports: Frequency, Other Symptoms, Denies: Dysuria, Incontinence Objective Physical Examination General Exam: Positive: Alert (Oriented to place, new her PCP is Dr. fischer. Knew the name of her great grandchildrena nd their ages), No Acute Distress ENT Exam: Positive: Mucous membr. moist/pink Neck Exam: Positive: +2 carotid pulse wo bruit, Lymphadenopathy, Other, Supple , thyromegaly, Negative: JVD Chest Exam: Positive: Clear to auscultation, Normal air movement Heart Exam: Positive: Normal S1, Normal S2, Rate Normal, Regular Rhythm, Negative: Murmurs, Rubs Abdomen Exam: Positive: Normal bowel sounds, Soft, Negative: Hepatospenomegaly, Tenderness Extremity Exam: Positive: Normal pulses, Tenderness (right ankle is currently in a splint), Negative: Clubbing, Cyanosis, Edema Skin Exam: Positive: Nl turgor and temperature, Negative: Breakdown, Lesion Neuro Exam: Positive: Cranial Nerves 3-12 NL, Normal Speech Psych Exam: Positive: Mood NL, Negative: Mental status NL, Oriented x 3 (Oriented to place, new her PCP is Dr. fischer. Knew the name of her great grandchildrena nd their ages) Assessment /Plan Problems (1) Acute metabolic encephalopathy Status: Acute Problem Text: 06/30 - It should be noted that patient was started on Trazodone in March by Dr. Fischer. Her confusion has been going on for at least a few weeks or longer per patient. i suspect the Trazodone may have been contributing ? LP unremarkable. cultures pending Mental status improved. Still a little vague at times, but getting Center for pain which is likely contributing to this. I would switch to Tylenol only FILIPPO. Also started on Neurontin by ortho. Not sure if this combination is going to work well for patient with underlying confusion issues. D/W attending JFW: per granddtr, less confused but not at baseline. i agree with concern re: gabapentin, will d/c this. Also, reduce dose of trazodone 06/29 CT head Neg, MS baseline not clear. At this time, she is aware of her circumstances aside from not knowing the year. She offers that she hasn't been able to answer that in sometime. JFW: met with [facility], states pt very confused, "twitching" at times, c/o JORGE since admission. Pt also states her "neck hurts" (no rigidity, no meningeal signs on exam). Will get LP, ? encephalitis/meningitis JFW: radiology unable to do LP until tomorrow, prob in evening (not acceptable) . Called neuro, spoke with Dr Rosa, he advises have anesthesia do LP. Spoke with Dr Dave, he agrees to see pt, case discussed (2) Urinary frequency Status: Acute Problem Text: 06/30 - Staff reports patient c/o pressure after urination and urgency without much urine output. May be developing some retention from immobility and narcotics Get post-void residual repeat U/C C & S (Had LP yesterday so need to monitor to assure retention not related to this) (3) Fever Status: Acute Problem Specific Plan: Monitor Clinically Problem Text: 06/30 - No further fever. WBC trendign down. U/C negative, flu screen neg. CXR NAD. Monitor temp. CSF cultures pending but does not look like infection on cell evaluation (4) Ankle fracture, right Status: Acute Problem Text: 06/29 - Currently in Splint, Ortho recommended Cam type walking boot, ambulation, PT eval. 06/28 Orthopedic surgeons have seen and evaluated her in the ED, the report is not available at this time. Will defer to them for her activity orders. Her right ankle is already splinted. (5) Hypertension Status: Chronic Response to Treatment: Stable Problem Text: Monitor pressures, cont with Zebeta for now. (6) Anxiety and depression Status: Chronic Problem Specific Plan: Monitor Clinically (7) Iron deficiency anemia Status: Chronic Response to Treatment: Stable Problem Specific Plan: Monitor Clinically Problem Text: Baseline Hgb 11 - 12. (8) Insomnia Status: Chronic Response to Treatment: Stable Problem Specific Plan: Monitor Clinically Problem Text: Per H & P trazodone increased recently for sleep, it appears this order was generated in March of 2016. Plan/VTE VTE Prophylaxis Ordered?: Yes (Lovenox) Plan/Urinary Catheter Reason for insertion/continuin: Patient request Plan Therapy: PT (PT/OT ordered. Lives with . ), OT VS, I&O, 24H, Fishbone Vital Signs/I&O Vital Signs Date Time Temp Pulse Resp B/P Pulse Ox O2 Delivery O2 Flow Rate FiO2 06/30/16 06:52 18 06/30/16 06:00 97.6 83 178/83 92 06/29/16 22:00 Room Air I&O- Last 24 Hours up to 6 AM 06/30/16 06:00 Intake Total 840 ml Output Total 700 ml Balance 140 ml Laboratory Data 24H LABS Laboratory Tests 2 06/29/16 14:35: CSF Appearance CLEAR, CSF Cell Count Tube # TUBE 3, CSF Color COLORLESS, CSF Eosinophils % , CSF Glucose 90H, CSF Lymphocytes % , CSF Monocytes % , CSF Neutrophils % , CSF RBC 0, CSF Total Protein 38.9, CSF Tube Number TUBE 2, CSF WBC 1 06/30/16 07:01: Anion Gap 4L, Blood Urea Nitrogen 16, Creatinine 0.72, Sodium Level 140, Potassium Level 3.8, Chloride Level 104, Carbon Dioxide Level 32, Calcium Level 9.8, Glomerular Filtration Rate > 60.0 CBC/BMP Laboratory Tests 06/30/16 07:01 Calcium Level 9.8, Red Blood Count 3.26 L, Mean Corpuscular Volume 99.3 H, Mean Corpuscular Hemoglobin 31.4, Mean Corpuscular Hemoglobin Concent 31.6 L, Red Cell Distribution Width 13.1 Microbiology Microbiology 06/29/16 Gram Stain - Final, Resulted 06/29/16 CSF Culture, Resulted Pending 06/29/16 , Resulted Pending 06/29/16 Influenza Virus Type A Antigen - Final, Complete 06/29/16 Influenza Virus Type B Antigen - Final, Complete 06/28/16 Urine Culture - Final, Complete MARIO BOWER PA-C Jun 30, 2016 10:28 Kwasi Bower MD Jun 30, 2016 16:23
[2016-06-30 10:43] LABS: CSF GROUP B STREP NEGATIVE (NEGATIVE); CSF H. INFLUENZA NEGATIVE (NEGATIVE); CSF N MENINGITIDIS ACYW135 NEGATIVE (NEGATIVE); CSF STREP PNUEMO NEGATIVE (NEGATIVE)
[2016-06-30] MEDS: CHOLESTYRAMINE 4 GM PWD PKT PO SCH ×2 (10:46→20:16)
[2016-06-30] MEDS: VITAMIN D 1,000 INTERNATIONAL UNITS TABLET PO SCH (10:47)
[2016-06-30] MEDS: GABAPENTIN 400 MG CAP PO SCH (10:47)
[2016-06-30] MEDS: ACETAMINOPHEN TAB 650MG DOSE (2X325MG) PO PRN (10:47)
[2016-06-30] MEDS: FUROSEMIDE 20 MG TAB PO SCH (10:47)
[2016-06-30] MEDS: PANTOPRAZOLE 40MG TAB (PROTONIX) PO SCH ×2 (10:48→20:15)
[2016-06-30] MEDS: CYANOCOBALAMIN 500 MCG TAB PO SCH (10:48)
[2016-06-30] MEDS: PARoxetine 20 MG TAB PO SCH (10:48)
[2016-06-30] MEDS: BISOPROLOL FUMARATE 10 MG TAB PO SCH (10:48)
[2016-06-30] MEDS: FERROUS SULFATE 325MG TAB PO SCH ×2 (10:48→20:16)
[2016-06-30] MEDS: MAGNESIUM OXIDE 400 MG TAB (MAG-OX) PO SCH (10:48)
[2016-06-30] MEDS: POTASSIUM CHLORIDE 10 MEQ SR TABLET PO SCH (10:49)
[2016-06-30 14:00] VITALS: BP 149/71
[2016-06-30] MEDS: ENOXAPARIN 40 MG/0.4 ML SYRINGE (J1650) SC SCH (18:48)
[2016-06-30] MEDS: CALCIUM/VITAMIN D 500 MG TAB PO SCH (20:15)
[2016-06-30] MEDS: ROSUVASTATIN 10 MG TAB (CRESTOR) PO SCH (20:15)
[2016-06-30] MEDS: **NOTE PATIENT COMMENT** MISC XX SCH (20:16)
[2016-06-30 22:00] VITALS: BP 134/62
[2016-07-01] MEDS: ACETAMINOPHEN TAB 650MG DOSE (2X325MG) PO PRN (04:13)
[2016-07-01 06:00] VITALS: BP 135/81
[2016-07-01] MEDS: NORCO, ANEXSIA 5/325MG TABLET (HYDROcodone/ACETAMINOPHEN) PO SCH ×3 (06:28→18:11)
[2016-07-01 07:08] LABS: MEAN CORPUSCULAR HEMOGLOBIN 31.5 pg (27.0-33.0); MEAN CORPUSCULAR HGB CONC 31.8 g/dl (32.0-36.5); MEAN CORPUSCULAR VOLUME 99.1 fl (80.0-96.0); RED CELL DISTRIBUTION WIDTH 13.1 % (11.5-14.5); WHITE BLOOD COUNT 11.1 K/mm3 (4.0-10.0)
[2016-07-01 07:13] LABS: ANION GAP 6 MEQ/L (8-16); BLOOD UREA NITROGEN 15 MG/DL (7-18); CALCIUM LEVEL 9.6 MG/DL (8.8-10.2); CARBON DIOXIDE LEVEL 28 MEQ/L (21-32); CHLORIDE LEVEL 108 MEQ/L (98-107); CREATININE FOR GFR 0.63 MG/DL (0.55-1.02); GLOMERULAR FILTRATION RATE > 60.0 (>39); GLUCOSE, FASTING 129 MG/DL (83-110); POTASSIUM SERUM 3.7 MEQ/L (3.5-5.1); SODIUM LEVEL 142 MEQ/L (136-145)
--- NOTE | 2016-07-01 08:07 | IPNPDOC ---
Subjective Date Seen The patient was seen on 07/01/16. Subjective Chief Complaint/HPI Pt reports that she didn't sleep last night. Has a h/o difficulty sleeping, was on trazodone which was in March increased by Dr Fischer to 100 mg, she then a few weeks ago started taking 150 mg on her own as the 100 mg wasn't helping her. States that she has difficulty falling asleep and staying asleep. She is otherwise feeling pretty good this morning. General: Reports: Fatigue Constitutional: Denies: Chills, Fever ENT: Denies: Head Aches Skin: Denies: Rash Pulmonary: Denies: Cough, Dyspnea Cardiovascular: Denies: Chest Pain, Palpitations Gastrointestinal: Denies: Diarrhea, Nausea, Vomiting Genitourinary: Denies: Dysuria, Frequency Musculoskeletal: Denies: Neck Pain Neurological: Denies: Weakness Psych: Reports: Memory Issues, Mood Normal Objective Physical Examination General Exam: Positive: Alert (pleasant), No Acute Distress ENT Exam: Positive: Mucous membr. moist/pink Neck Exam: Positive: Supple, Negative: JVD Chest Exam: Positive: Clear to auscultation, Normal air movement Heart Exam: Positive: Normal S1, Normal S2, Rate Normal, Regular Rhythm, Negative: Murmurs, Rubs Abdomen Exam: Positive: Normal bowel sounds, Soft, Negative: Hepatospenomegaly, Tenderness Extremity Exam: Positive: Normal pulses, Tenderness (R lower leg in CAM boot), Negative: Clubbing, Cyanosis, Edema Skin Exam: Positive: Nl turgor and temperature, Negative: Breakdown, Lesion Neuro Exam: Positive: Cranial Nerves 3-12 NL, Normal Speech Psych Exam: Positive: Mood NL, Negative: Mental status NL, Oriented x 3 (Oriented to place, new her PCP is Dr. fischer. Knew the name of her great grandchildrena nd their ages) Assessment /Plan Problems (1) Acute metabolic encephalopathy Status: Acute Problem Text: 07/01 - She currently is not on trazodone and her Neurontin was d/c 's yesterday due confusion. LP so far unremarkable, her cultures remain pending. 06/30 - It should be noted that patient was started on Trazodone in March by Dr. Fischer. Her confusion has been going on for at least a few weeks or longer per patient. i suspect the Trazodone may have been contributing? LP unremarkable. cultures pending Mental status improved. Still a little vague at times, but getting [place] for pain which is likely contributing to this. I would switch to Tylenol only FILIPPO. Also started on Neurontin by ortho. Not sure if this combination is going to work well for patient with underlying confusion issues. D/W attending JFW: per granddtr, less confused but not at baseline. i agree with concern re: gabapentin, will d/c this. Also, reduce dose of trazodone 06/29 CT head Neg, MS baseline not clear. At this time, she is aware of her circumstances aside from not knowing the year. She offers that she hasn't been able to answer that in sometime. DANICAW: met with [facility], states pt very confused, "twitching" at times, c/o JORGE since admission. Pt also states her "neck hurts" (no rigidity, no meningeal signs on exam). Will get LP, ? encephalitis/meningitis JFW: radiology unable to do LP until tomorrow, prob in evening (not acceptable) . Called neuro, spoke with Dr Rosa, he advises have anesthesia do LP. Spoke with Dr Dave, he agrees to see pt, case discussed (2) Urinary frequency Status: Acute Problem Text: 07/01 - Culture pending, no c/o symptoms today. 06/30 - Staff reports patient c/o pressure after urination and urgency without much urine output. May be developing some retention from immobility and narcotics Get post-void residual repeat U/C C & S (Had LP yesterday so need to monitor to assure retention not related to this) (3) Fever Status: Acute Problem Specific Plan: Monitor Clinically Problem Text: 06/30 - No further fever. WBC trendign down. U/C negative, flu screen neg. CXR NAD. Monitor temp. CSF cultures pending but does not look like infection on cell evaluation (4) Ankle fracture, right Status: Acute Problem Text: 07/01 - Not safe per PT. 06/29 - Currently in Splint, Ortho recommended Cam type walking boot, ambulation, PT eval. 06/28 Orthopedic surgeons have seen and evaluated her in the ED, the report is not available at this time. Will defer to them for her activity orders. Her right ankle is already splinted. (5) Hypertension Status: Chronic Response to Treatment: Stable Problem Text: Monitor pressures, cont with Zebeta for now. (6) Anxiety and depression Status: Chronic Problem Specific Plan: Monitor Clinically (7) Iron deficiency anemia Status: Chronic Response to Treatment: Stable Problem Specific Plan: Monitor Clinically Problem Text: Baseline Hgb 11 - 12. (8) Insomnia Status: Chronic Response to Treatment: Stable Problem Specific Plan: Monitor Clinically Problem Text: 07/01 - didn't sleep much last night, would like something to help her sleep. 4/ Per H & P trazodone increased recently for sleep, it appears this order was generated in March of 2016. Plan/VTE VTE Prophylaxis Ordered?: Yes (Lovenox) Plan/Urinary Catheter Reason for insertion/continuin: Patient request Plan Therapy: PT (PT/OT ordered. Lives with . ), OT VS, I&O, 24H, Fishbone Vital Signs/I&O Vital Signs Date Time Temp Pulse Resp B/P Pulse Ox O2 Delivery O2 Flow Rate FiO2 07/01/16 07:39 18 07/01/16 06:00 98.3 88 135/81 93 Room Air I&O- Last 24 Hours up to 6 AM 07/01/16 06:00 Intake Total 240 ml Output Total 1329 ml Balance -1089 ml Laboratory Data 24H LABS Laboratory Tests 2 06/30/16 19:17: Urine Amorphous Sediment , Urine Appearance HAZY, Urine Color YELLOW, Urine pH 5.0, Urine Specific [place] 1.021, Urine Protein 1+H, Urine Glucose (UA) NEGATIVE, Urine Ketones NEGATIVE, Urine Urobilinogen 0.2, Urine Bilirubin NEGATIVE, Urine Leukocyte Esterase NEGATIVE, Urine Bacteria (Auto) 1+H, Urine Blood 1+H, Urine Calcium Carbonate Cryst(Auto) , Urine Calcium Oxalate Cryst ( Auto) , Urine Calcium Phosphate Delilah (Auto) , Urine Cellular Casts , Urine Cystine Crystals , Urine Granular Casts (Auto) , Urine Hyaline Casts (Auto) 0, Urine Leucine Crystals , Urine Mucus (Auto) SMALL, Urine Nitrite NEGATIVE, Urine Oval Fat Bodies (Auto) , Urine RBC (Auto) 13H, Urine Renal Epithelial Cells , Urine Sperm (Auto) , Urine Squamous Epithelial Cells 2, Urine Transitional Epithelial Cells , Urine Trichomonas (Auto) , Urine Triple Phosphate Cryst (Auto) , Urine Tyrosine Crystals , Urine Uric Acid Crystals ( Auto) , Urine WBC (Auto) 6H, Urine Waxy Casts (Auto) , Urine Yeast-Like Cells ( Auto) 07/01/16 06:40: Anion Gap 6L, Blood Urea Nitrogen 15, Creatinine 0.63, Sodium Level 142, Potassium Level 3.7, Chloride Level 108H, Carbon Dioxide Level 28, Calcium Level 9.6, Glomerular Filtration Rate > 60.0 CBC/BMP Laboratory Tests 07/01/16 06:40 Calcium Level 9.6, Red Blood Count 3.25 L, Mean Corpuscular Volume 99.1 H, Mean Corpuscular Hemoglobin 31.5, Mean Corpuscular Hemoglobin Concent 31.8 L, Red Cell Distribution Width 13.1 Microbiology Microbiology 06/29/16 Gram Stain - Final, Resulted 06/29/16 CSF Culture, Resulted Pending 06/29/16 , Resulted Pending 06/29/16 Influenza Virus Type A Antigen - Final, Complete 06/29/16 Influenza Virus Type B Antigen - Final, Complete 06/30/16 Urine Culture, Received Pending 06/28/16 Urine Culture - Final, Complete DORCAS GUY PA-C Jul 01, 2016 08:07
[2016-07-01] MEDS: CYANOCOBALAMIN 500 MCG TAB PO SCH (11:32)
[2016-07-01] MEDS: VITAMIN D 1,000 INTERNATIONAL UNITS TABLET PO SCH (11:32)
[2016-07-01] MEDS: MAGNESIUM OXIDE 400 MG TAB (MAG-OX) PO SCH (11:32)
[2016-07-01] MEDS: BISOPROLOL FUMARATE 10 MG TAB PO SCH (11:32)
[2016-07-01] MEDS: PARoxetine 20 MG TAB PO SCH (11:32)
[2016-07-01] MEDS: CHOLESTYRAMINE 4 GM PWD PKT PO SCH ×2 (11:32→20:56)
[2016-07-01] MEDS: FERROUS SULFATE 325MG TAB PO SCH ×2 (11:33→20:56)
[2016-07-01] MEDS: FUROSEMIDE 20 MG TAB PO SCH ×2 (11:33→11:43)
[2016-07-01] MEDS: PANTOPRAZOLE 40MG TAB (PROTONIX) PO SCH ×2 (11:33→20:56)
[2016-07-01] MEDS: POTASSIUM CHLORIDE 10 MEQ SR TABLET PO SCH (11:33)
[2016-07-01] MEDS ORDERED: diphenhydrAMINE 25 MG CAP PO PRN (16:30)
[2016-07-01] MEDS: ENOXAPARIN 40 MG/0.4 ML SYRINGE (J1650) SC SCH (18:12)
[2016-07-01] MEDS: CALCIUM/VITAMIN D 500 MG TAB PO SCH (20:55)
[2016-07-01] MEDS: **NOTE PATIENT COMMENT** MISC XX SCH (20:56)
[2016-07-01] MEDS: ROSUVASTATIN 10 MG TAB (CRESTOR) PO SCH (20:56)
[2016-07-01 22:00] VITALS: BP_SYST 165; BP_SYST 172; BP_DIAS 78; BP_DIAS 82
[2016-07-02] MEDS: NORCO, ANEXSIA 5/325MG TABLET (HYDROcodone/ACETAMINOPHEN) PO SCH ×2 (00:30→06:26)
[2016-07-02] MEDS: ACETAMINOPHEN TAB 650MG DOSE (2X325MG) PO PRN ×2 (03:38→09:47)
[2016-07-02 06:00] VITALS: BP_SYST 158; BP_SYST 165; BP_DIAS 83; BP_DIAS 84
[2016-07-02 07:01] LABS: MEAN CORPUSCULAR HGB CONC 31.3 g/dl (32.0-36.5); MEAN CORPUSCULAR VOLUME 98.9 fl (80.0-96.0); RED CELL DISTRIBUTION WIDTH 13.1 % (11.5-14.5); WHITE BLOOD COUNT 8.4 K/mm3 (4.0-10.0)
[2016-07-02 07:02] LABS: ANION GAP 8 MEQ/L (8-16); BLOOD UREA NITROGEN 13 MG/DL (7-18); CALCIUM LEVEL 9.4 MG/DL (8.8-10.2); CARBON DIOXIDE LEVEL 28 MEQ/L (21-32); CHLORIDE LEVEL 109 MEQ/L (98-107); CREATININE FOR GFR 0.66 MG/DL (0.55-1.02); GLOMERULAR FILTRATION RATE > 60.0 (>39); GLUCOSE, FASTING 125 MG/DL (83-110); POTASSIUM SERUM 3.5 MEQ/L (3.5-5.1); SODIUM LEVEL 145 MEQ/L (136-145)
[2016-07-02] MEDS: POTASSIUM CHLORIDE 10 MEQ SR TABLET PO SCH (09:00)
--- NOTE | 2016-07-02 09:04 | REP ---
RIGHT ANKLE SERIES: Two views. HISTORY: Follow-up. Comparison radiographs June 28, 2016. FINDINGS: Nondisplaced fracture through the tip of the lateral malleolus is again seen with associated soft-tissue swelling. The soft tissue swelling is slightly improved but remains moderate. 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 Some widening of the ankle mortise is again seen laterally. There is some narrowing medially. Plantar calcaneal spurring and mild midfoot spurring is seen. There is evidence of superficial vein varicosities in the medial aspect of the distal calf. IMPRESSION: Widening of the ankle mortise laterally. Nondisplaced chip fracture of the distal tip of the fibula. Osteoarthritis. Signed by Ean Orosco MD 07/02/2016 06:35 P
[2016-07-02] MEDS: VITAMIN D 1,000 INTERNATIONAL UNITS TABLET PO SCH (09:47)
[2016-07-02] MEDS: PANTOPRAZOLE 40MG TAB (PROTONIX) PO SCH ×2 (09:47→20:23)
[2016-07-02] MEDS: PARoxetine 20 MG TAB PO SCH (09:47)
[2016-07-02] MEDS: FERROUS SULFATE 325MG TAB PO SCH ×2 (09:47→20:23)
[2016-07-02] MEDS: FUROSEMIDE 20 MG TAB PO SCH (09:47)
[2016-07-02] MEDS: BISOPROLOL FUMARATE 10 MG TAB PO SCH (09:48)
[2016-07-02] MEDS: CHOLESTYRAMINE 4 GM PWD PKT PO SCH ×2 (09:48→20:22)
[2016-07-02] MEDS: MAGNESIUM OXIDE 400 MG TAB (MAG-OX) PO SCH (09:48)
[2016-07-02] MEDS: CYANOCOBALAMIN 500 MCG TAB PO SCH (09:48)
--- NOTE | 2016-07-02 10:00 | IPNPDOC ---
Subjective Date Seen The patient was seen on 07/02/16. Subjective Chief Complaint/HPI Pt without new concerns this morning. Pain is controlled. General: Denies: Fatigue Constitutional: Denies: Chills, Fever ENT: Denies: Head Aches Pulmonary: Denies: Cough, Dyspnea Cardiovascular: Denies: Chest Pain, Palpitations Gastrointestinal: Denies: Nausea, Vomiting Genitourinary: Denies: Dysuria Psych: Reports: Mood Normal Objective Physical Examination General Exam: Positive: Alert (pleasant), No Acute Distress ENT Exam: Positive: Mucous membr. moist/pink Neck Exam: Positive: Supple, Negative: JVD Chest Exam: Positive: Clear to auscultation, Normal air movement Heart Exam: Positive: Normal S1, Normal S2, Rate Normal, Regular Rhythm, Negative: Murmurs, Rubs Abdomen Exam: Positive: Normal bowel sounds, Soft, Negative: Hepatospenomegaly, Tenderness Extremity Exam: Positive: Normal pulses, Tenderness (R lower leg in CAM boot), Negative: Clubbing, Cyanosis, Edema Skin Exam: Positive: Nl turgor and temperature, Negative: Breakdown, Lesion Neuro Exam: Positive: Cranial Nerves 3-12 NL, Normal Speech Psych Exam: Positive: Mood NL, Negative: Mental status NL, Oriented x 3 (Oriented to place, new her PCP is Dr. fischer. Knew the name of her great grandchildrena nd their ages) Assessment /Plan Problems (1) Acute metabolic encephalopathy Status: Acute Problem Text: 07/02 - CFS culture Neg. 07/01 - She currently is not on trazodone and her Neurontin was d/c's yesterday due confusion. LP so far unremarkable, her cultures remain pending. 06/30 - It should be noted that patient was started on Trazodone in March by Dr. Fischer. Her confusion has been going on for at least a few weeks or longer per patient. i suspect the Trazodone may have been contributing? LP unremarkable. cultures pending Mental status improved. Still a little vague at times, but getting Napoleon for pain which is likely contributing to this. I would switch to Tylenol only FILIPPO. Also started on Neurontin by ortho. Not sure if this combination is going to work well for patient with underlying confusion issues. D/W attending JFW: per granddtr, less confused but not at baseline. i agree with concern re: gabapentin, will d/c this. Also, reduce dose of trazodone 06/29 CT head Neg, MS baseline not clear. At this time, she is aware of her circumstances aside from not knowing the year. She offers that she hasn't been able to answer that in sometime. JFW: [facility], states pt very confused, "twitching" at times, c/o JORGE since admission. Pt also states her "neck hurts" (no rigidity, no meningeal signs on exam). Will get LP, ? encephalitis/meningitis JFW: radiology unable to do LP until tomorrow, prob in evening (not acceptable) . Called neuro, spoke with Dr Rosa, he advises have anesthesia do LP. Spoke with Dr Dave, he agrees to see pt, case discussed (2) Urinary frequency Status: Acute Problem Text: 07/02 - Culture + Proteus, allergy to PCN and cross reactors, Resistent to macrobid, concern for confusion with Quinolones, will use Bactrim DS, nl renal function. 07/01 - Culture pending, no c/o symptoms today. 06/30 - Staff reports patient c/o pressure after urination and urgency without much urine output. May be developing some retention from immobility and narcotics Get post-void residual repeat U/C C & S (Had LP yesterday so need to monitor to assure retention not related to this) (3) Fever Status: Acute Problem Specific Plan: Monitor Clinically Problem Text: 06/30 - No further fever. WBC trendign down. U/C negative, flu screen neg. CXR NAD. Monitor temp. CSF cultures pending but does not look like infection on cell evaluation (4) Ankle fracture, right Status: Acute Problem Text: 07/02 Not safe per PT. 07/01 - Not safe per PT. 06/29 - Currently in Splint, Ortho recommended Cam type walking boot, ambulation, PT lucinda. 06/28 Orthopedic surgeons have seen and evaluated her in the ED, the report is not available at this time. Will defer to them for her activity orders. Her right ankle is already splinted. (5) Hypertension Status: Chronic Response to Treatment: Stable Problem Text: Monitor pressures, cont with Zebeta for now. (6) Anxiety and depression Status: Chronic Problem Specific Plan: Monitor Clinically (7) Iron deficiency anemia Status: Chronic Response to Treatment: Stable Problem Specific Plan: Monitor Clinically Problem Text: Baseline Hgb 11 - 12. (8) Insomnia Status: Chronic Response to Treatment: Stable Problem Specific Plan: Monitor Clinically Problem Text: 07/01 - didn't sleep much last night, would like something to help her sleep. 4/5 Per H & P trazodone increased recently for sleep, it appears this order was generated in March of 2016. Plan/VTE VTE Prophylaxis Ordered?: Yes (Lovenox) Plan/Urinary Catheter Reason for insertion/continuin: Patient request Plan Therapy: PT (PT/OT ordered. Lives with . ), OT VS, I&O, 24H, Fishbone Vital Signs/I&O Vital Signs Date Time Temp Pulse Resp B/P Pulse Ox O2 Delivery O2 Flow Rate FiO2 07/02/16 09:48 87 165/83 07/02/16 06:56 17 07/02/16 06:00 97.4 95 Room Air I&O- Last 24 Hours up to 6 AM 07/02/16 05:59 Intake Total 0 ml Output Total 350 ml Balance -350 ml Laboratory Data 24H LABS Laboratory Tests 2 07/02/16 06:37: Anion Gap 8, Blood Urea Nitrogen 13, Creatinine 0.66, Sodium Level 145, Potassium Level 3.5, Chloride Level 109H, Carbon Dioxide Level 28, Calcium Level 9.4, Glomerular Filtration Rate > 60.0 CBC/BMP Laboratory Tests 07/02/16 06:37 Calcium Level 9.4, Red Blood Count 3.50 L, Mean Corpuscular Volume 98.9 H, Mean Corpuscular Hemoglobin 31.0, Mean Corpuscular Hemoglobin Concent 31.3 L, Red Cell Distribution Width 13.1 Microbiology Microbiology 06/29/16 Gram Stain - Final, Complete 06/29/16 CSF Culture - Final, Complete 06/29/16 - Final, Complete 06/29/16 Influenza Virus Type A Antigen - Final, Complete 06/29/16 Influenza Virus Type B Antigen - Final, Complete 06/30/16 Urine Culture - Final, Complete Proteus Mirabilis 06/28/16 Urine Culture - Final, Complete DORCAS GUY PA-C Jul 02, 2016 09:59
[2016-07-02] MEDS: BACTRIM 160MG/800MG DS TAB PO SCH ×2 (13:49→20:23)
[2016-07-02] MEDS: EXCEDRIN MIGRAINE TABLET PO PRN ×2 (15:28→23:30)
[2016-07-02] MEDS: ENOXAPARIN 40 MG/0.4 ML SYRINGE (J1650) SC SCH (18:13)
[2016-07-02] MEDS: SIMETHICONE 80 MG CHEW TAB PO PRN (20:23)
[2016-07-02] MEDS: ROSUVASTATIN 10 MG TAB (CRESTOR) PO SCH (20:23)
[2016-07-02] MEDS: CALCIUM/VITAMIN D 500 MG TAB PO SCH (20:23)
[2016-07-02] MEDS: **NOTE PATIENT COMMENT** MISC XX SCH (20:34)
[2016-07-02 22:00] VITALS: BP 158/72
[2016-07-03 00:06] LABS: CSFLYM10 Absent (.); CSFLYM11 Absent (.); CSFLYM12 Negative (.); CSFLYM14 Absent (.); CSFLYM15 Absent (.); CSFLYM16 Absent (.); CSFLYM17 Negative (.); CSFLYM2 Absent (.); CSFLYM3 Absent (.); CSFLYM4 Absent (.); CSFLYM5 Absent (.); CSFLYM6 Absent (.); CSFLYM7 Absent (.); CSFLYM8 Absent (.); CSFLYM9 Absent (.)
[2016-07-03 05:56] LABS: MEAN CORPUSCULAR HEMOGLOBIN 31.7 pg (27.0-33.0); MEAN CORPUSCULAR HGB CONC 32.1 g/dl (32.0-36.5); WHITE BLOOD COUNT 6.7 K/mm3 (4.0-10.0)
[2016-07-03 06:00] VITALS: BP 164/84
[2016-07-03 06:15] LABS: ANION GAP 9 MEQ/L (8-16); BLOOD UREA NITROGEN 14 MG/DL (7-18); CALCIUM LEVEL 9.5 MG/DL (8.8-10.2); CARBON DIOXIDE LEVEL 26 MEQ/L (21-32); CHLORIDE LEVEL 109 MEQ/L (98-107); CREATININE FOR GFR 0.68 MG/DL (0.55-1.02); GLOMERULAR FILTRATION RATE > 60.0 (>39); GLUCOSE, FASTING 131 MG/DL (83-110); POTASSIUM SERUM 3.8 MEQ/L (3.5-5.1); SODIUM LEVEL 144 MEQ/L (136-145)
[2016-07-03] MEDS: ACETAMINOPHEN TAB 650MG DOSE (2X325MG) PO PRN (06:21)
[2016-07-03] MEDS: CHOLESTYRAMINE 4 GM PWD PKT PO SCH ×2 (08:53→20:08)
[2016-07-03] MEDS: PARoxetine 20 MG TAB PO SCH (08:54)
[2016-07-03] MEDS: CYANOCOBALAMIN 500 MCG TAB PO SCH (08:54)
[2016-07-03] MEDS: FERROUS SULFATE 325MG TAB PO SCH ×2 (08:54→20:08)
[2016-07-03] MEDS: BISOPROLOL FUMARATE 10 MG TAB PO SCH (08:54)
[2016-07-03] MEDS: BACTRIM 160MG/800MG DS TAB PO SCH ×2 (08:54→20:08)
[2016-07-03] MEDS: VITAMIN D 1,000 INTERNATIONAL UNITS TABLET PO SCH (08:54)
[2016-07-03] MEDS: FUROSEMIDE 20 MG TAB PO SCH (08:54)
[2016-07-03] MEDS: POTASSIUM CHLORIDE 10 MEQ SR TABLET PO SCH (08:54)
[2016-07-03] MEDS: PANTOPRAZOLE 40MG TAB (PROTONIX) PO SCH ×2 (08:55→20:08)
[2016-07-03] MEDS: MAGNESIUM OXIDE 400 MG TAB (MAG-OX) PO SCH (08:55)
[2016-07-03 13:30] VITALS: BP 158/82
[2016-07-03] MEDS: SIMETHICONE 80 MG CHEW TAB PO PRN (15:14)
[2016-07-03] MEDS: EXCEDRIN MIGRAINE TABLET PO PRN ×2 (15:14→21:38)
[2016-07-03 15:58] VITALS: BP 145/72
--- NOTE | 2016-07-03 18:07 | IPNPDOC ---
Subjective Date Seen The patient was seen on 07/03/16. Subjective Chief Complaint/HPI The patient is a 80-year-old female admitted with a reason for visit of Ankle Fx. Events since last encounter Patient's ankle is doing well with walking boot. She continues to work with physical therapy. She has no other complaints or concerns today. Constitutional: Denies: Chills, Fever, Malaise Skin: Denies: Rash Cardiovascular: Denies: Chest Pain, Orthopnea, Palpitations Gastrointestinal: Denies: Abdominal Pain, Nausea, Vomiting Genitourinary: Denies: Dysuria Musculoskeletal: Reports: Foot Pain Other systems 10 point review systems is otherwise negative Objective Physical Examination General Exam: Positive: Alert (pleasant), No Acute Distress ENT Exam: Positive: Mucous membr. moist/pink Neck Exam: Positive: Supple, Negative: JVD Chest Exam: Positive: Clear to auscultation, Normal air movement Heart Exam: Positive: Normal S1, Normal S2, Rate Normal, Regular Rhythm, Negative: Murmurs, Rubs Abdomen Exam: Positive: Normal bowel sounds, Soft, Negative: Hepatospenomegaly, Tenderness Extremity Exam: Positive: Normal pulses, Swelling (swelling of right ankle), Tenderness (R ankle), Negative: Clubbing, Cyanosis, Edema Skin Exam: Positive: Nl turgor and temperature, Negative: Breakdown, Lesion Neuro Exam: Positive: Normal Speech Psych Exam: Positive: Mood NL, Negative: Mental status NL, Oriented x 3 (Oriented to place, new her PCP is Dr. torres. Knew the name of her great grandchildrena nd their ages) Assessment /Plan Problems (1) Ankle fracture, right Status: Acute Problem Text: Ortho recommended Cam type walking boot, ambulation. Continues to have physical therapy, recommending possibly home with home health versus continuing rehabilitation. (2) Urinary frequency Status: Acute Problem Text: Culture + Proteus, allergy to PCN and cross reactors, Resistent to macrobid, concern for confusion with Quinolones, will use Bactrim DS, nl renal function. -Continue Bactrim twice a day (3) Acute metabolic encephalopathy Status: Acute Problem Text: Patient is status post normal CT, normal LP. This is most likely acute hospital-induced delirium, possibly secondary to UTI, culture positive Proteus mirabilis. Mentation is now normalized. (4) Fever Status: Acute Problem Specific Plan: Monitor Clinically Problem Text: Likely secondary to UTI, with culture-positive Proteus mirabilis greater than 100,000 CFU. Fever is resolved. -Continue Bactrim (5) Hypertension Status: Chronic Response to Treatment: Stable Problem Text: Monitor pressures, cont with Zebeta for now. (6) Anxiety and depression Status: Chronic Problem Specific Plan: Monitor Clinically (7) Iron deficiency anemia Status: Chronic Response to Treatment: Stable Problem Specific Plan: Monitor Clinically Problem Text: Baseline Hgb 11 - 12. (8) Insomnia Status: Chronic Response to Treatment: Stable Problem Specific Plan: Monitor Clinically Problem Text: Per nursing, corazodone has not worked for her in the past. They' re concerned about her dose of Unisom. -Ordered very small dose of Ambien Plan/VTE VTE Prophylaxis Ordered?: Yes (Lovenox) Plan/Urinary Catheter Reason for insertion/continuin: Patient request Plan Therapy: PT (PT/OT ordered. Lives with . ), OT Disposition Likely to rehabilitation versus home with services VS, I&O, 24H, Fishbone Vital Signs/I&O Vital Signs Date Time Temp Pulse Resp B/P Pulse Ox O2 Delivery O2 Flow Rate FiO2 07/03/16 15:58 145/72 07/03/16 13:30 97.6 73 22 97 Room Air I&O- Last 24 Hours up to 6 AM 07/03/16 06:00 Intake Total 480 ml Output Total 0 ml Balance 480 ml Laboratory Data 24H LABS Laboratory Tests 2 07/03/16 05:34: Anion Gap 9, Blood Urea Nitrogen 14, Creatinine 0.68, Sodium Level 144, Potassium Level 3.8, Chloride Level 109H, Carbon Dioxide Level 26, Calcium Level 9.5, Glomerular Filtration Rate > 60.0 CBC/BMP Laboratory Tests 07/03/16 05:34 Calcium Level 9.5, Red Blood Count 3.48 L, Mean Corpuscular Volume 99.0 H, Mean Corpuscular Hemoglobin 31.7, Mean Corpuscular Hemoglobin Concent 32.1, Red Cell Distribution Width 13.0 Microbiology Microbiology 06/29/16 Gram Stain - Final, Complete 06/29/16 CSF Culture - Final, Complete 06/29/16 - Final, Complete 06/29/16 Influenza Virus Type A Antigen - Final, Complete 06/29/16 Influenza Virus Type B Antigen - Final, Complete 06/30/16 Urine Culture - Final, Complete Proteus Mirabilis 06/28/16 Urine Culture - Final, Complete THERESA MAX MD Jul 03, 2016 18:07 06/30/16 Urine Culture - Final, Complete Proteus Mirabilis 06/28/16 Urine Culture - Final, Complete THERESA MAX MD Jul 03, 2016 18:07
[2016-07-03] MEDS: ENOXAPARIN 40 MG/0.4 ML SYRINGE (J1650) SC SCH (18:31)
[2016-07-03] MEDS: CALCIUM/VITAMIN D 500 MG TAB PO SCH (20:08)
[2016-07-03] MEDS: zolPIDEM TARTRATE 5 MG TAB PO SCH (20:08)
[2016-07-03] MEDS: ROSUVASTATIN 10 MG TAB (CRESTOR) PO SCH (20:08)
[2016-07-03] MEDS: **NOTE PATIENT COMMENT** MISC XX SCH (20:09)
[2016-07-03 22:00] VITALS: BP 164/79
[2016-07-04] MEDS: NORCO, ANEXSIA 5/325MG TABLET (HYDROcodone/ACETAMINOPHEN) PO PRN (04:27)
[2016-07-04 06:00] VITALS: BP 133/78
[2016-07-04 06:06] LABS: MEAN CORPUSCULAR HEMOGLOBIN 31.5 pg (27.0-33.0); MEAN CORPUSCULAR HGB CONC 31.6 g/dl (32.0-36.5); MEAN CORPUSCULAR VOLUME 99.5 fl (80.0-96.0); RED CELL DISTRIBUTION WIDTH 13.2 % (11.5-14.5); WHITE BLOOD COUNT 7.2 K/mm3 (4.0-10.0)
[2016-07-04 06:21] LABS: ANION GAP 9 MEQ/L (8-16); BLOOD UREA NITROGEN 14 MG/DL (7-18); CALCIUM LEVEL 9.2 MG/DL (8.8-10.2); CARBON DIOXIDE LEVEL 25 MEQ/L (21-32); CHLORIDE LEVEL 108 MEQ/L (98-107); CREATININE FOR GFR 0.86 MG/DL (0.55-1.02); GLOMERULAR FILTRATION RATE > 60.0 (>39); GLUCOSE, FASTING 126 MG/DL (83-110); POTASSIUM SERUM 3.7 MEQ/L (3.5-5.1); SODIUM LEVEL 142 MEQ/L (136-145)
--- NOTE | 2016-07-04 09:03 | IPNPDOC ---
Subjective Date Seen The patient was seen on 07/04/16. Subjective Chief Complaint/HPI The patient is a 80-year-old female admitted with a reason for visit of Ankle Fx. Events since last encounter Patient states she is doing well today. She is disappointed that physical therapy does not feel that she is safe for home health physical therapy. Constitutional: Denies: Chills, Fever, Malaise Skin: Denies: Rash Pulmonary: Denies: Cough, Dyspnea Cardiovascular: Denies: Chest Pain, Orthopnea, Palpitations Gastrointestinal: Denies: Abdominal Pain, Constipation, Diarrhea, Nausea, Vomiting Genitourinary: Denies: Dysuria Musculoskeletal: Reports: Foot Pain (right ankle swelling and pain) Other systems 10 point review systems otherwise negative Objective Physical Examination General Exam: Positive: Alert (pleasant), No Acute Distress ENT Exam: Positive: Mucous membr. moist/pink Neck Exam: Positive: Supple, Negative: JVD Chest Exam: Positive: Clear to auscultation, Normal air movement Heart Exam: Positive: Normal S1, Normal S2, Rate Normal, Regular Rhythm, Negative: Murmurs, Rubs Abdomen Exam: Positive: Normal bowel sounds, Soft, Negative: Hepatospenomegaly, Tenderness Extremity Exam: Positive: Normal pulses, Swelling (swelling of right ankle), Tenderness (R ankle), Negative: Clubbing, Cyanosis, Edema Skin Exam: Positive: Nl turgor and temperature, Negative: Breakdown, Lesion Neuro Exam: Positive: Normal Speech Psych Exam: Positive: Mood NL, Negative: Mental status NL, Oriented x 3 (Oriented to place, new her PCP is Dr. torres. Knew the name of her great grandchildrena nd their ages) Assessment /Plan Problems (1) Ankle fracture, right Status: Acute Problem Text: Pt in Cam type walking boot. Continues to have physical therapy , recommending rehab. - protective services social worker consult for placement (2) Urinary frequency Status: Acute Problem Text: Culture + Proteus, allergy to PCN and cross reactors, Resistent to macrobid, concern for confusion with Quinolones, will use Bactrim DS, nl renal function. -Continue Bactrim twice a day (3) Acute metabolic encephalopathy Status: Acute Problem Text: Patient is status post normal CT, normal LP. This is most likely acute hospital-induced delirium, possibly secondary to UTI, culture positive Proteus mirabilis. Mentation is now normalized. (4) Fever Status: Resolved Problem Specific Plan: Monitor Clinically Problem Text: Likely secondary to UTI, with culture-positive Proteus mirabilis greater than 100,000 CFU. Fever is resolved. -Continue Bactrim (5) Hypertension Status: Chronic Response to Treatment: Stable Problem Text: Monitor pressures, cont with Zebeta for now. (6) Anxiety and depression Status: Chronic Problem Specific Plan: Monitor Clinically (7) Iron deficiency anemia Status: Chronic Response to Treatment: Stable Problem Specific Plan: Monitor Clinically Problem Text: Baseline Hgb 11 - 12. (8) Insomnia Status: Chronic Response to Treatment: Stable Problem Specific Plan: Monitor Clinically Problem Text: Per nursing, yenni has not worked for her in the past. They' re concerned about her dose of Unisom. -Ordered very small dose of Ambien Plan/VTE VTE Prophylaxis Ordered?: Yes (Lovenox) Plan/Urinary Catheter Reason for insertion/continuin: Patient request Plan Therapy: PT (PT/OT ordered. Lives with . ), OT Disposition To rehabilitation per physical therapy note; discuss with patient family services on Tuesday VS, I&O, 24H, Fishbone Vital Signs/I&O Vital Signs Date Time Temp Pulse Resp B/P Pulse Ox O2 Delivery O2 Flow Rate FiO2 07/04/16 06:00 98.3 66 18 133/78 92 Room Air I&O- Last 24 Hours up to 6 AM 07/04/16 06:00 Intake Total 1440 ml Balance 1440 ml Laboratory Data 24H LABS Laboratory Tests 2 07/04/16 05:51: Anion Gap 9, Blood Urea Nitrogen 14, Creatinine 0.86, Sodium Level 142, Potassium Level 3.7, Chloride Level 108H, Carbon Dioxide Level 25, Calcium Level 9.2, Glomerular Filtration Rate > 60.0 CBC/BMP Laboratory Tests 07/04/16 05:51 Calcium Level 9.2, Red Blood Count 3.36 L, Mean Corpuscular Volume 99.5 H, Mean Corpuscular Hemoglobin 31.5, Mean Corpuscular Hemoglobin Concent 31.6 L, Red Cell Distribution Width 13.2 Microbiology Microbiology 06/29/16 Gram Stain - Final, Complete 06/29/16 CSF Culture - Final, Complete 06/29/16 - Final, Complete 06/29/16 Influenza Virus Type A Antigen - Final, Complete 06/29/16 Influenza Virus Type B Antigen - Final, Complete 06/30/16 Urine Culture - Final, Complete Proteus Mirabilis 06/28/16 Urine Culture - Final, Complete THERESA MAX MD Jul 04, 2016 09:03
[2016-07-04] MEDS: BISOPROLOL FUMARATE 10 MG TAB PO SCH (10:36)
[2016-07-04] MEDS: VITAMIN D 1,000 INTERNATIONAL UNITS TABLET PO SCH (10:36)
[2016-07-04] MEDS: FERROUS SULFATE 325MG TAB PO SCH ×2 (10:37→21:07)
[2016-07-04] MEDS: PANTOPRAZOLE 40MG TAB (PROTONIX) PO SCH ×2 (10:37→21:07)
[2016-07-04] MEDS: MAGNESIUM OXIDE 400 MG TAB (MAG-OX) PO SCH (10:37)
[2016-07-04] MEDS: BACTRIM 160MG/800MG DS TAB PO SCH ×2 (10:37→21:07)
[2016-07-04] MEDS: CYANOCOBALAMIN 500 MCG TAB PO SCH (10:37)
[2016-07-04] MEDS: PARoxetine 20 MG TAB PO SCH (10:37)
[2016-07-04] MEDS: FUROSEMIDE 20 MG TAB PO SCH (10:38)
[2016-07-04] MEDS: POTASSIUM CHLORIDE 10 MEQ SR TABLET PO SCH (10:38)
[2016-07-04] MEDS: CHOLESTYRAMINE 4 GM PWD PKT PO SCH ×2 (10:38→21:09)
[2016-07-04 14:00] VITALS: BP 141/68
[2016-07-04] MEDS: EXCEDRIN MIGRAINE TABLET PO PRN (16:12)
[2016-07-04] MEDS: ENOXAPARIN 40 MG/0.4 ML SYRINGE (J1650) SC SCH (18:22)
[2016-07-04] MEDS: **NOTE PATIENT COMMENT** MISC XX SCH (21:00)
[2016-07-04] MEDS: CALCIUM/VITAMIN D 500 MG TAB PO SCH (21:06)
[2016-07-04] MEDS: zolPIDEM TARTRATE 5 MG TAB PO SCH (21:06)
[2016-07-04] MEDS: ROSUVASTATIN 10 MG TAB (CRESTOR) PO SCH (21:08)
[2016-07-04 22:00] VITALS: BP 145/72
[2016-07-05] MEDS: EXCEDRIN MIGRAINE TABLET PO PRN ×3 (01:24→21:48)
[2016-07-05 06:00] VITALS: BP 135/72
[2016-07-05 07:11] LABS: MEAN CORPUSCULAR VOLUME 97.1 fl (80.0-96.0); WHITE BLOOD COUNT 7.8 K/mm3 (4.0-10.0)
[2016-07-05 07:24] LABS: ANION GAP 9 MEQ/L (8-16); BLOOD UREA NITROGEN 17 MG/DL (7-18); CALCIUM LEVEL 9.9 MG/DL (8.8-10.2); CARBON DIOXIDE LEVEL 25 MEQ/L (21-32); CHLORIDE LEVEL 107 MEQ/L (98-107); CREATININE FOR GFR 0.87 MG/DL (0.55-1.02); GLOMERULAR FILTRATION RATE > 60.0 (>39); GLUCOSE, FASTING 120 MG/DL (83-110); POTASSIUM SERUM 3.8 MEQ/L (3.5-5.1); SODIUM LEVEL 141 MEQ/L (136-145)
[2016-07-05] MEDS: VITAMIN D 1,000 INTERNATIONAL UNITS TABLET PO SCH (09:55)
[2016-07-05] MEDS: CHOLESTYRAMINE 4 GM PWD PKT PO SCH ×2 (09:55→20:43)
[2016-07-05] MEDS: PARoxetine 20 MG TAB PO SCH (09:55)
[2016-07-05] MEDS: FERROUS SULFATE 325MG TAB PO SCH ×2 (09:55→20:43)
[2016-07-05] MEDS: CYANOCOBALAMIN 500 MCG TAB PO SCH (09:55)
[2016-07-05] MEDS: MAGNESIUM OXIDE 400 MG TAB (MAG-OX) PO SCH (09:56)
[2016-07-05] MEDS: BISOPROLOL FUMARATE 10 MG TAB PO SCH (09:56)
[2016-07-05] MEDS: POTASSIUM CHLORIDE 10 MEQ SR TABLET PO SCH (09:57)
[2016-07-05] MEDS: BACTRIM 160MG/800MG DS TAB PO SCH ×2 (09:57→20:43)
[2016-07-05] MEDS: PANTOPRAZOLE 40MG TAB (PROTONIX) PO SCH ×2 (09:57→20:43)
[2016-07-05] MEDS: FUROSEMIDE 20 MG TAB PO SCH (09:57)
[2016-07-05 14:00] VITALS: BP 162/74
[2016-07-05] MEDS: NORCO, ANEXSIA 5/325MG TABLET (HYDROcodone/ACETAMINOPHEN) PO PRN (15:30)
[2016-07-05] MEDS: ENOXAPARIN 40 MG/0.4 ML SYRINGE (J1650) SC SCH (17:33)
[2016-07-05] MEDS: CALCIUM/VITAMIN D 500 MG TAB PO SCH (20:43)
[2016-07-05] MEDS: ROSUVASTATIN 10 MG TAB (CRESTOR) PO SCH (20:43)
[2016-07-05] MEDS: **NOTE PATIENT COMMENT** MISC XX SCH (20:44)
[2016-07-05] MEDS: zolPIDEM TARTRATE 5 MG TAB PO SCH (20:44)
--- NOTE | 2016-07-05 21:00 | IPNPDOC ---
Subjective Date Seen The patient was seen on 07/05/16. Subjective Chief Complaint/HPI The patient is a 80-year-old female admitted with a reason for visit of Ankle Fx. Events since last encounter Patient is doing well today, pain is controlled, no complaints. Constitutional: Denies: Chills, Fever, Malaise, Night Sweats, Weakness Skin: Denies: Rash Pulmonary: Denies: Cough, Dyspnea Cardiovascular: Denies: Chest Pain, Orthopnea, Palpitations Gastrointestinal: Denies: Abdominal Pain, Constipation, Diarrhea, Nausea, Vomiting Genitourinary: Denies: Dysuria Other systems 10 point review systems otherwise negative Objective Physical Examination General Exam: Positive: Alert (pleasant), No Acute Distress ENT Exam: Positive: Mucous membr. moist/pink Neck Exam: Positive: Supple, Negative: JVD Chest Exam: Positive: Clear to auscultation, Normal air movement Heart Exam: Positive: Normal S1, Normal S2, Rate Normal, Regular Rhythm, Negative: Murmurs, Rubs Abdomen Exam: Positive: Normal bowel sounds, Soft, Negative: Hepatospenomegaly, Tenderness Extremity Exam: Positive: Normal pulses, Swelling (swelling of right ankle), Tenderness (R ankle), Negative: Clubbing, Cyanosis, Edema Skin Exam: Positive: Nl turgor and temperature, Negative: Breakdown, Lesion Neuro Exam: Positive: Normal Speech Psych Exam: Positive: Mood NL, Negative: Mental status NL, Oriented x 3 (Oriented to place, new her PCP is Dr. torres. Knew the name of her great grandchildrena nd their ages) Assessment /Plan Problems (1) Ankle fracture, right Status: Acute Problem Text: Pt in Cam type walking boot. Continues to have physical therapy , recommending rehab. - high school social science teacher consult for placement -SNF status (2) Urinary frequency Status: Resolved Problem Text: Culture + Proteus, allergy to PCN and cross reactors, Resistent to macrobid, concern for confusion with Quinolones, will use Bactrim DS, nl renal function. -Continue Bactrim twice a day (3) Acute metabolic encephalopathy Status: Resolved Problem Text: Patient is status post normal CT, normal LP. This is most likely acute hospital-induced delirium, possibly secondary to UTI, culture positive Proteus mirabilis. Mentation is now normalized. (4) Fever Status: Resolved Problem Specific Plan: Monitor Clinically Problem Text: Likely secondary to UTI, with culture-positive Proteus mirabilis greater than 100,000 CFU. Fever is resolved. -Continue Bactrim (5) Hypertension Status: Chronic Response to Treatment: Stable Problem Text: Monitor pressures, cont with Zebeta for now. (6) Anxiety and depression Status: Chronic Problem Specific Plan: Monitor Clinically (7) Iron deficiency anemia Status: Chronic Response to Treatment: Stable Problem Specific Plan: Monitor Clinically Problem Text: Baseline Hgb 11 - 12. (8) Insomnia Status: Chronic Response to Treatment: Stable Problem Specific Plan: Monitor Clinically Problem Text: Per nursing, yenni has not worked for her in the past. They' re concerned about her dose of Unisom. -Ordered very small dose of Ambien Plan/VTE VTE Prophylaxis Ordered?: Yes (Lovenox) Plan/Urinary Catheter Reason for insertion/continuin: Patient request Plan Therapy: PT (PT/OT ordered. Lives with . ), OT VS, I&O, 24H, Fishbone Vital Signs/I&O Vital Signs Date Time Temp Pulse Resp B/P Pulse Ox O2 Delivery O2 Flow Rate FiO2 07/05/16 18:21 16 07/05/16 14:00 98.6 66 162/74 91 Room Air I&O- Last 24 Hours up to 6 AM 07/05/16 06:00 Intake Total 1080 ml Output Total 300 ml Balance 780 ml Laboratory Data 24H LABS Laboratory Tests 2 07/05/16 06:41: Anion Gap 9, Blood Urea Nitrogen 17, Creatinine 0.87, Sodium Level 141, Potassium Level 3.8, Chloride Level 107, Carbon Dioxide Level 25, Calcium Level 9.9, Glomerular Filtration Rate > 60.0 CBC/BMP Laboratory Tests 07/05/16 06:41 Calcium Level 9.9, Red Blood Count 3.58 L, Mean Corpuscular Volume 97.1 H, Mean Corpuscular Hemoglobin 31.0, Mean Corpuscular Hemoglobin Concent 32.0, Red Cell Distribution Width 13.0 Microbiology Microbiology 06/29/16 Gram Stain - Final, Complete 06/29/16 CSF Culture - Final, Complete 06/29/16 - Final, Complete 06/29/16 Influenza Virus Type A Antigen - Final, Complete 06/29/16 Influenza Virus Type B Antigen - Final, Complete 06/30/16 Urine Culture - Final, Complete Proteus Mirabilis 06/28/16 Urine Culture - Final, Complete THERESA MAX MD Jul 05, 2016 21:00
[2016-07-05 22:00] VITALS: BP 159/82
[2016-07-06 06:00] VITALS: BP 167/77
[2016-07-06] MEDS: MAGNESIUM OXIDE 400 MG TAB (MAG-OX) PO SCH (09:00)
[2016-07-06] MEDS: CYANOCOBALAMIN 500 MCG TAB PO SCH (09:28)
[2016-07-06] MEDS: CHOLESTYRAMINE 4 GM PWD PKT PO SCH (09:28)
[2016-07-06] MEDS: VITAMIN D 1,000 INTERNATIONAL UNITS TABLET PO SCH (09:28)
[2016-07-06] MEDS: BACTRIM 160MG/800MG DS TAB PO SCH (09:29)
[2016-07-06] MEDS: PARoxetine 20 MG TAB PO SCH (09:29)
[2016-07-06] MEDS: FUROSEMIDE 20 MG TAB PO SCH (09:29)
[2016-07-06] MEDS: PANTOPRAZOLE 40MG TAB (PROTONIX) PO SCH (09:29)
[2016-07-06] MEDS: FERROUS SULFATE 325MG TAB PO SCH (09:29)
[2016-07-06] MEDS: POTASSIUM CHLORIDE 10 MEQ SR TABLET PO SCH (09:29)
[2016-07-06 09:40] VITALS: BP 147/69
[2016-07-06] MEDS: NORCO, ANEXSIA 5/325MG TABLET (HYDROcodone/ACETAMINOPHEN) PO PRN (09:40)
[2016-07-06] MEDS: BISOPROLOL FUMARATE 10 MG TAB PO SCH (09:40)
[2016-07-06] MEDS ORDERED: SMZ-800T PO (12:41)
[2016-07-06] MEDS: EXCEDRIN MIGRAINE TABLET PO PRN (13:53)
[2016-07-06 14:00] VITALS: BP 125/72
--- NOTE | 2016-07-06 20:28 | DSES ---
DATE OF ADMISSION: 06/29/2016 DATE OF DISCHARGE: 07/06/2016 ATTENDING PHYSICIAN: Dr. Manuel Dorman. PRIMARY CARE PROVIDER: Dr. Jorge Fischer. HISTORY OF PRESENT ILLNESS: This 80-year-old female had presented to the emergency room brought by her daughter and a friend, with significant confusion. Patient was also noted to have significant amounts of weakness at home and experienced a fall. Workup in the emergency room showed a nondisplaced lateral malleolar fracture of the right ankle. Orthopedic surgery had been contacted and patient was placed in a splint. Patient was subsequently admitted. HOSPITAL COURSE: Orthopedics was consulted. Dr. Jorge Gaxiola evaluated the patient, advised nonsurgical management with posterior splint. Cam boot was obtained and patient was placed in Cam boot. Patient's trazodone withheld secondary to altered mental status and gabapentin was also held. CT brain obtained, which was negative. After trazodone was discontinued, patient's confusion continued to improve. Patient's fever did also resolve. Patient was noted to have Proteus mirabilis in her urine on urine culture. She was placed on Bactrim and has tolerated that well. At first, patient was deemed inappropriate for discharge home and physical therapy (PT) was recommending rehabilitation; however, after some significant instruction between both patient and family members at home, they feel she is safe to return to the home environment. On physical examination today, vital signs are stable. She is afebrile. She is alert to self, disoriented to time and place, is pleasant and cooperative. ASSESSMENT: 1. Metabolic encephalopathy. Most likely, acute hospital-induced delirium, possibly secondary to urinary tract infection (UTI). 2. Right ankle fracture. 3. History of dementia. 4. History of hypertension. 5. History of anxiety and depression. 6. Iron deficiency anemia. 7. Insomnia. 8. Gastroesophageal reflux disease (GERD). 9. Osteoporosis. 10. Vitamin D deficiency. PLAN: Patient will be discharged home. MEDICATIONS: - Bactrim 1 tablet by mouth twice a day for three more days - acetaminophen with hydrocodone 2 by mouth twice a day as needed for pain - alendronate sodium 70 mg by mouth weekly - biotin 1000 mcg 1 by mouth weekly - bisoprolol 10 mg by mouth daily - calcium and vitamin D 1 tablet by mouth at bedtime - vitamin D 2000 international units by mouth daily - cholestyramine 4 gram powder by mouth twice a day - vitamin B12 1000 mcg daily - Nexium 40 mg by mouth twice a day - Excedrin Tension Headache 1 tablet by mouth every 4 hours as needed - ferrous sulfate 325 mg by mouth twice a day - Flonase Allergy Relief one spray to each nostril twice a day - furosemide 20 mg by mouth daily - lidocaine patch 2 patches daily as needed - loperamide 2 mg by mouth as needed for diarrhea - magnesium oxide 400 mg by mouth daily - paroxetine 20 mg by mouth daily - potassium 10 mEq by mouth daily - Crestor 40 mg by mouth at bedtime Patient is discharged in stable and satisfactory condition. No further questions at time of discharge. [facility]
== END 2016-07-06 15:55 | disposition home or self-care (01) | DRG 562 ==
LOC: M ED 15:42 → M ED INP 16:30 → M MS5PR 19:25 → OBSVTOIN 06-29 12:48 → M MS5PR 07-01 18:37
PROVIDERS: ADMIT Hospitalist; ATTEND Family Medicine
DX: S82.64XA Nondisplaced fracture of lateral malleolus of right fibula, initial encounter for closed fracture (principal); G93.41 Metabolic encephalopathy; N39.0 Urinary tract infection, site not specified; B96.4 Proteus (mirabilis) (morganii) as the cause of diseases classified elsewhere; G47.00 Insomnia, unspecified; D50.9 Iron deficiency anemia, unspecified; K21.9 Gastro-esophageal reflux disease without esophagitis; M81.0 Age-related osteoporosis without current pathological fracture; I44.0 Atrioventricular block, first degree; E55.9 Vitamin D deficiency, unspecified; F32.9 Major depressive disorder, single episode, unspecified; F41.9 Anxiety disorder, unspecified; R73.01 Impaired fasting glucose; I10 Essential (primary) hypertension; J30.9 Allergic rhinitis, unspecified; F03.90 Unspecified dementia, unspecified severity, without behavioral disturbance, psychotic disturbance, mood disturbance, and anxiety; Z79.899 Other long term (current) drug therapy; Z88.0 Allergy status to penicillin; Z88.6 Allergy status to analgesic agent; Z88.8 Allergy status to other drugs, medicaments and biological substances; Z85.820 Personal history of malignant melanoma of skin; Z90.710 Acquired absence of both cervix and uterus; Z90.49 Acquired absence of other specified parts of digestive tract; Z80.3 Family history of malignant neoplasm of breast; Z83.6 Family history of other diseases of the respiratory system; Z81.1 Family history of alcohol abuse and dependence; Z80.1 Family history of malignant neoplasm of trachea, bronchus and lung; Z89.022 Acquired absence of left finger(s); Y93.01 Activity, walking, marching and hiking; Y92.481 Parking lot as the place of occurrence of the external cause; W01.0XXA Fall on same level from slipping, tripping and stumbling without subsequent striking against object, initial encounter; Y99.9 Unspecified external cause status

== ENCOUNTER → 2016-07-13 | Outpatient (REF) | payer OTHER ==
[~2016-07-13] MED LIST changes: +BIOT10005 PO; +BIOT50004 PO; +BISO10TA6 PO; +CALCTAB68 PO; +CHOL4PKT PO; +CHOL4POW4 PO; +CLON0.5T PO; +COLA100C3 PO; +CRES40TA PO; +EXCETAB42 PO; +FLON1SPR; +FLUTISP; +FOSA70TA PO; +FURO20TA2 PO; +GABA600T PO; +HYDR-3719 PO; +LIDO5TD TOP; +LOPE2TAB PO; +MAGN400T5 PO; +NEXI40CA PO; +PARO-39 PO; +PARO20TA3 PO; +POTA10CA PO; +REGL5TAB2 PO; +SLOWTAB2 PO; +SMZ-800T PO; +TRAZ100T4 PO; +UNIS25TA2 PO; +VITA10002 PO; +VITA200015 PO
== END ==
LOC: M SFHCPLAZ 15:34
PROVIDERS: ATTEND Physician Assistant Medical
DX: N39.0 Urinary tract infection, site not specified (principal); A04.7 Enterocolitis due to Clostridium difficile

== ENCOUNTER → 2016-07-20 | Outpatient (REF) | payer OTHER ==
[2016-07-23 00:06] LABS: O+P EXAM Final report (.)
== END ==
LOC: M SFHCPLAZ 11:14
PROVIDERS: ATTEND Physician Assistant Medical
DX: N39.0 Urinary tract infection, site not specified (principal); A04.7 Enterocolitis due to Clostridium difficile

== ENCOUNTER → 2016-08-27 | Outpatient (REF) | payer OTHER ==
[2016-08-27 16:25] LABS: ALBUMIN/GLOBULIN RATIO 1.43 (1.00-1.93); ALKALINE PHOSPHATASE 58 U/L (45-117); ALT/SGPT 27 U/L (12-78); ANION GAP 7 MEQ/L (8-16); AST/SGOT 16 U/L (15-37); BILIRUBIN,TOTAL 0.5 MG/DL (0.2-1.0); BLOOD UREA NITROGEN 20 MG/DL (7-18); CALCIUM LEVEL 9.4 MG/DL (8.8-10.2); CARBON DIOXIDE LEVEL 27 MEQ/L (21-32); CHLORIDE LEVEL 107 MEQ/L (98-107); CREATININE FOR GFR 0.77 MG/DL (0.55-1.02); FERRITIN 884 NG/ML (8-252); GLOMERULAR FILTRATION RATE > 60.0 (>39); GLUCOSE, FASTING 102 MG/DL (83-110); PERCENT SATURATION 21.1 % (13.2-37.4); POTASSIUM SERUM 4.3 MEQ/L (3.5-5.1); SODIUM LEVEL 141 MEQ/L (136-145); TOTAL IRON BINDING CAPACITY 323 UG/DL (250-450); TOTAL PROTEIN 6.8 GM/DL (6.4-8.2)
[2016-08-27 16:26] LABS: BASO % 0.3 % (0.0-1.0); EOS # 0.2 K/mm3 (0.0-0.50); EOS % 2.1 % (0.0-3.0); LARGE UNSTAINED CELL # 0.1 K/mm3 (0.0-0.4); LARGE UNSTAINED CELL % 1.4 % (0.0-4.0); LYMPH # 2.7 K/mm3 (1.5-4.5); LYMPH % 33.6 % (24.0-44.0); MEAN CORPUSCULAR HEMOGLOBIN 32.2 pg (27.0-33.0); MEAN CORPUSCULAR HGB CONC 32.3 g/dl (32.0-36.5); MEAN CORPUSCULAR VOLUME 99.4 fl (80.0-96.0); MONO # 0.4 K/mm3 (0.0-0.8); MONO % 5.2 % (0.0-5.0); NEUTROPHILS # 4.4 K/mm3 (1.8-7.7); NEUTROPHILS % 57.4 % (36.0-66.0); PLATELET COUNT, AUTOMATED 258 k/mm3 (150-450); RED CELL DISTRIBUTION WIDTH 13.2 % (11.5-14.5); WHITE BLOOD COUNT 7.7 K/mm3 (4.0-10.0)
[2016-08-27 16:30] LABS: VITAMIN B12 LEVEL 928 PG/ML (247-911)
== END ==
LOC: M SFHCPLAZ 14:39
PROVIDERS: ATTEND Family Medicine
DX: D50.9 Iron deficiency anemia, unspecified (principal)
CPT/HCPCS: 36415; 80053; 82607; 82728; 83550; 85025; G0463

== ENCOUNTER → 2016-09-02 | Outpatient (CLI) | payer OTHER ==
[~2016-09-02] MED LIST changes: -BIOT10005 PO; +BIOT10008 PO; -COLA100C3 PO; +COLA100C5 PO; -EXCETAB42 PO; +EXCETAB49 PO; +FERR1TAB8 PO; +LOPE2CAP PO; -LOPE2TAB PO; -PARO-39 PO; +PARO20TA4 PO; -SMZ-800T PO; +SULF1TAB23 PO; +TRAZ-136 PO; -TRAZ100T4 PO
--- NOTE | 2016-09-05 14:55 | SLEEPHOME ---
DATE OF PROCEDURE: 09/02/2016 ORDERED BY: Dr. Fischer INTERPRETATION: Diagnostic home sleep testing was performed due to concern for the obstructive sleep apnea syndrome. For testing, a NOX-T3 respiratory monitoring device was used. Continuous record was made of pulse, oxygen saturation, airflow, chest and abdominal strain, and body position. 10 hours and 59 minutes of data were reviewed. Of these, 9 hours and 49 minutes of data were marked as time in bed. During the interval marked time in bed, there were 133 respiratory events identified of 10 seconds in duration or greater for a respiratory disturbance index of 13.5. The events were primarily obstructive. Baseline saturation 90%, lowest oxygen saturation 85%. Average heart rate 74 beats per minute. Pulse rate ranged 70 to 92. Testing was performed in both the supine and nonsupine positions. IMPRESSION: Abnormal home sleep testing with repetitive respiratory events and oxygen desaturation to 85% with a respiratory event index of 13.5 is consistent with the obstructive sleep apnea syndrome. RECOMMENDATION: The patient should be referred for formal sleep evaluation and in laboratory pressure titration.
== END ==
LOC: M SLEEP HO 09:46
PROVIDERS: ATTEND Family Medicine
DX: G47.9 Sleep disorder, unspecified (principal)

== ENCOUNTER → 2016-12-30 | Outpatient (CLI) | payer OTHER ==
--- NOTE | 2016-12-30 14:19 | REPMRS ---
Patient History The patient states she has not had a clinical breast exam in over a year. Patient is postmenopausal and has history of melanoma cancer at age 51. Family history of breast cancer in sister at age 50 or over and breast cancer in mother at age 50 or over. Benign excisional biopsy of the left breast. Digital Woman Screen Mammo: December 30, 2016 - Exam #: [id number] Bilateral CC and MLO view(s) were taken. Technologist: Amelia Talamantes, Technologist Prior study comparison: December 09, 2015, digital woman screen mammo performed at [facility] [employer] [facility]. December 25, 2014, digital woman screen mammo performed at [facility] [employer]. July 09, 2013, digital bilateral screening mammo, performed at [facility]. FINDINGS: There are scattered fibroglandular densities. A surgical clip is seen projecting in the left axillary soft tissues unchanged . There has been no change in the appearance of the mammogram from the prior studies. There is a mild amount of scattered fibroglandular density which is fairly symmetric. There is no interval development of dominant mass, architectural distortion, or clustered microcalcification suggestive of malignancy. ASSESSMENT: BI-RADS/ACR category 2 mammogram. Benign finding(s). Recommendation Routine screening mammogram in 1 year (for women over age 40). This mammogram was interpreted with the aid of an FDA-approved computer-aided dectection system. Electronically Signed By: Abhijit Orosco MD 12/30/16 [id number]
== END ==
LOC: M WHC 13:05
PROVIDERS: ATTEND Family Medicine
DX: Z12.31 Encounter for screening mammogram for malignant neoplasm of breast (principal); Z78.0 Asymptomatic menopausal state; Z80.3 Family history of malignant neoplasm of breast; Z85.820 Personal history of malignant melanoma of skin

== ENCOUNTER → 2016-12-31 | Outpatient (REF) | payer OTHER ==
[2016-12-31 17:43] LABS: BASO % 0.6 % (0.0-1.0); EOS # 0.2 10^3/uL (0.0-0.50); EOS % 2.4 % (0.0-3.0); IMMATURE GRANULOCYTE % 0.6 % (0-0); LYMPH # 2.6 10^3/uL (1.5-4.5); LYMPH % 36.9 % (24.0-44.0); MEAN CORPUSCULAR HEMOGLOBIN 31.8 pg (27.0-33.0); MEAN CORPUSCULAR HGB CONC 31.1 g/dl (32.0-36.5); MEAN CORPUSCULAR VOLUME 102.4 fl (80.0-96.0); MONO # 0.5 10^3/uL (0.0-0.8); MONO % 7.2 % (0.0-5.0); NEUTROPHILS # 3.7 10^3/uL (1.8-7.7); NEUTROPHILS % 52.3 % (36.0-66.0); PLATELET COUNT, AUTOMATED 314 10^3/uL (150-450); RED CELL DISTRIBUTION WIDTH 12.4 % (11.5-14.5); WHITE BLOOD COUNT 7.1 10^3/uL (4.0-10.0)
[2016-12-31 19:15] LABS: ALBUMIN/GLOBULIN RATIO 1.29 (1.00-1.93); ALKALINE PHOSPHATASE 54 U/L (45-117); ALT/SGPT 20 U/L (12-78); ANION GAP 6 MEQ/L (8-16); AST/SGOT 11 U/L (15-37); BILIRUBIN,TOTAL 0.3 MG/DL (0.2-1.0); BLOOD UREA NITROGEN 19 MG/DL (7-18); CALCIUM LEVEL 9.6 MG/DL (8.8-10.2); CARBON DIOXIDE LEVEL 30 MEQ/L (21-32); CHLORIDE LEVEL 104 MEQ/L (98-107); CHOLESTEROL LEVEL 174 MG/DL (<200); CREATININE FOR GFR 0.72 MG/DL (0.55-1.02); FERRITIN 874 NG/ML (8-252); FREE T4 0.96 NG/DL (0.76-1.46); GLOMERULAR FILTRATION RATE > 60.0 (>32); GLUCOSE, FASTING 103 MG/DL (83-110); MAGNESIUM LEVEL 2.2 MG/DL (1.8-2.4); PERCENT SATURATION 19.1 % (13.2-45.0); POTASSIUM SERUM 4.7 MEQ/L (3.5-5.1); SODIUM LEVEL 140 MEQ/L (136-145); TOTAL IRON BINDING CAPACITY 282 UG/DL (250-450); TOTAL PROTEIN 7.1 GM/DL (6.4-8.2); TRIGLYCERIDES LEVEL 282 MG/DL (<150)
[2017-01-04 10:36] LABS: PRETREATED FOLATE FOR RBCFOL 13.4 NG/ML
== END ==
LOC: M SFHCPLAZ 15:41
PROVIDERS: ATTEND Family Medicine
DX: D50.9 Iron deficiency anemia, unspecified (principal); E53.8 Deficiency of other specified B group vitamins; I50.30 Unspecified diastolic (congestive) heart failure; E78.5 Hyperlipidemia, unspecified; R73.01 Impaired fasting glucose; Z23 Encounter for immunization
CPT/HCPCS: 36415; 80053; 80061; 82550; 82728; 82747; 83036; 83550; 83735; 84439; 84443; 85025; 86140; 90670; G0009; G0463

== ENCOUNTER → 2017-03-07 | Outpatient (REF) | payer OTHER | LOC: M SFHCPLAZ 12:46 | PROVIDERS: ATTEND Family Medicine | DX: L85.8 Other specified epidermal thickening (principal); L57.8 Other skin changes due to chronic exposure to nonionizing radiation; B07.8 Other viral warts; L56.8 Other specified acute skin changes due to ultraviolet radiation; L57.0 Actinic keratosis ==

== ENCOUNTER → 2017-04-25 | Outpatient (CLI) | payer OTHER ==
[2017-04-25 15:57] LABS: BLOOD UREA NITROGEN 20 MG/DL (7-18)
[2017-04-25 15:57] LABS: CREATININE FOR GFR 0.72 MG/DL (0.55-1.30); GLOMERULAR FILTRATION RATE > 60.0 (>32)
== END ==
LOC: M LAB 13:44
DX: M96.1 Postlaminectomy syndrome, not elsewhere classified (principal)
CPT/HCPCS: 82565

== ENCOUNTER → 2017-05-16 | Outpatient (CLI) | payer OTHER ==
[~2017-05-16] MED LIST changes: -*BLDWK7; -/ALEN7SOL OR; -/ESOM40CA OR; -/ESOM40CA PO; -/LOR25TA OR; -/WARF25TA PO; -/ZIAC5TA PO; -ACTONEL; -ACTONEL35 PO; -ALPR0.5T3 OR; -AMBI10TA PO; -AMBI5TAB OR; -AMBIEN; -AMBIEN10 PO; -AMBIENCR PO; -AMITRIP25 PO; -ANEXIA; -ATARAX25 PO; -ATARAX50 PO; -ATENOLOL50 PO; -AVAPRO150 PO; -AVELOX PO; -AZELASTINE SPRAY; -B-6 PO; -BACTRIMDS PO; -BIOT10008 PO; -BIOT50004 PO; -BISO10TA2 OR; -BISO10TA6 PO; -BISOPROLOL PO; -CALC500T49 PO; -CALCCHW12 OR; -CALCTAB68 PO; -CEFTIN500 PO; -CELE20TA OR; -CELEBRE200 PO; -CENTRUM SILVER PO; -CHOL4PKT PO; -CHOL4POW4 PO; -CIPRO500 PO; -CLON0.5T PO; -COLA100C5 PO; -CRES40TA PO; -CRESTOR5 PO; -DOXEPIN PO; -DOXYCYC100 PO; -DURAGE TOPICAL; -ERYTHRO PO; -EXCETAB OR; -EXCETAB49 PO; -FELO5TAB4 OR; -FERR1TAB8 PO; -FERR325T OR; -FERR325T PO; -FERROUS325 PO; -FISH1000 OR; -FLECTOR1.3 TOP; -FLEXERIL PO; -FLON0.05; -FLON1SPR; -FLONASESPR NASAL; -FLUTISP; -FOSA70TA PO; -FOSAMAX70 PO; -FURO20TA2 OR; -FURO20TA2 PO; -GABA600T PO; -HCTZ25 PO; -HYDR-3719 PO; -HYDROCHLOROTHIAZIDE PO; -LASI20TA OR; -LESCOLXL80 PO; -LEVA500T OR; -LIDO5TD TOP; -LIDODERM PATCH; -LIDODERM PATCH TOP; -LIPITOR20 PO; -LIPITOR40 PO; -LOPE2CAP PO; -MAGN400T5 PO; -MAVIK2 PO; -METAMUCIL; -MULTIVIT PO; -MYCELEXTRO PO; -MYLATAB; -NASACORT; -NASACORT AQ; -NASACORT INH; -NASACORT NASALLY; -NASONEX NASAL; -NEUR100C OR; -NEUR400C OR; -NEXI40CA PO; -NEXIUM; -NEXIUM40 PO; -PARO20TA3 PO; -PARO20TA4 PO; -POTA10CA PO; -PRAVACHOL2 PO; +PROHANCE 279.3MG/ML 15ML VIAL (A9576) As Ordered; -QUESTRAN; -QUESTRAN PO; -REGL5TAB2 PO; -ROXICET PO; -SERZONE PO; -SING10TA31 OR; -SLOWTAB2 PO; -SULF1TAB23 PO; -THERGRAN; -TRAM50TA2 OR; -TRAZ-136 PO; -TRAZ0DON5 PO; -TRAZODON15 PO; -TRICOR145 PO; -TRICOR160 PO; -TUSSIONEX PO; -TYLE500T53 OR; -TYLENOLCOD PO; -UNIS25TA2 PO; -VICODIN PO; -VICODIN-ES PO; -VICODINES TAB OR; -VIT D 2000 OR; -VITA-113 PO; -VITA10002 PO; -VITA100T OR; -VITA200015 PO; -VITA400C OR; -VITACAP31 PO; -VITAMIN B 6; -VITAMIN B-6 PO; -VITAMIN E PO; -VOLT1GEL EXT; -VOLT1GEL TOP; -VYTORIN40 PO; -ZIAC; -ZIAC10 PO; -ZOCO40TA OR; -ZOCO40TA PO; -ZOCOR; -ZOCOR40 PO; -[UNRECOGNIZED DRUG - CODE] TOPICAL; -[UNRECOGNIZED DRUG - OTHER] PO; -[UNRECOGNIZED DRUG - OTHER] PO; -[UNRECOGNIZED DRUG - OTHER] PO
== END ==
LOC: M RAD 07:50
DX: R22.0 Localized swelling, mass and lump, head (principal); Z85.820 Personal history of malignant melanoma of skin
CPT/HCPCS: A9576

== ENCOUNTER → 2017-05-26 | Outpatient (REF) | payer OTHER ==
[2017-05-26 16:05] LABS: BASO % 0.6 % (0.0-1.0); EOS # 0.3 10^3/uL (0.0-0.50); EOS % 3.9 % (0.0-3.0); HEMATOCRIT 37.5 % (36.0-47.0); HEMOGLOBIN 11.5 g/dl (12.0-16.0); IMMATURE GRANULOCYTE % 0.3 % (0-3.0); LYMPH # 2.1 10^3/uL (1.5-4.5); LYMPH % 31.8 % (24.0-44.0); MEAN CORPUSCULAR HEMOGLOBIN 31.3 pg (27.0-33.0); MEAN CORPUSCULAR HGB CONC 30.7 g/dl (32.0-36.5); MEAN CORPUSCULAR VOLUME 101.9 fl (80.0-96.0); MONO # 0.6 10^3/uL (0.0-0.8); MONO % 8.7 % (0.0-5.0); NEUTROPHILS # 3.7 10^3/uL (1.8-7.7); NEUTROPHILS % 54.7 % (36.0-66.0); PLATELET COUNT, AUTOMATED 260 10^3/uL (150-450); RED BLOOD COUNT 3.68 10^6/uL (4.00-5.40); RED CELL DISTRIBUTION WIDTH 13.4 % (11.5-14.5); WHITE BLOOD COUNT 6.7 10^3/uL (4.0-10.0)
[2017-05-26 16:23] LABS: ALBUMIN/GLOBULIN RATIO 1.43 (1.00-1.93); ALKALINE PHOSPHATASE 51 U/L (45-117); ALT/SGPT 18 U/L (12-78); ANION GAP 2 MEQ/L (8-16); AST/SGOT 17 U/L (7-37); BILIRUBIN,TOTAL 0.3 MG/DL (0.2-1.0); BLOOD UREA NITROGEN 24 MG/DL (7-18); CALCIUM LEVEL 9.3 MG/DL (8.8-10.2); CARBON DIOXIDE LEVEL 31 MEQ/L (21-32); CHLORIDE LEVEL 107 MEQ/L (98-107); CREATININE FOR GFR 0.72 MG/DL (0.55-1.30); GLOMERULAR FILTRATION RATE > 60.0 (>32); GLUCOSE, FASTING 96 MG/DL (70-100); MAGNESIUM LEVEL 2.1 MG/DL (1.8-2.4); POTASSIUM SERUM 4.8 MEQ/L (3.5-5.1); SODIUM LEVEL 140 MEQ/L (136-145); TOTAL PROTEIN 6.8 GM/DL (6.4-8.2)
[2017-05-26 16:32] LABS: ESTIMATED AVERAGE GLUCOSE 126 MG/DL (60-110)
[2017-05-27 12:55] LABS: ALBUMIN 4.22 GM/DL (3.29-5.55); ALPHA-1-GLOBULIN % 4.2 % (2.9-4.9); ALPHA-1-GLOBULINS 0.29 GM/DL (0.17-0.41); ALPHA-2-GLOBULINS 0.82 GM/DL (0.42-0.99); ALPHA-2-GLOBULINS % 12.1 % (7.1-11.8); BETA-1-GLOBULINS % 5.7 % (4.7-7.2); BETA-2-GLOBULINS % 5.6 % (3.2-6.5); GAMMA GLOBULIN % 10.4 % (11.1-18.8)
[2017-05-27 12:56] LABS: BETA-1-GLOBULINS 0.39 GM/DL (0.28-0.60); BETA-2-GLOBULINS 0.38 GM/DL (0.19-0.55); GAMMA GLOBULINS 0.71 GM/DL (0.65-1.58)
[2017-05-28 14:13] LABS: INSULIN LEVEL 8.6 uIU/mL (2.6-24.9)
== END ==
LOC: M SFHCPLAZ 13:04
DX: E53.8 Deficiency of other specified B group vitamins (principal); R73.01 Impaired fasting glucose; I10 Essential (primary) hypertension
CPT/HCPCS: 83525

== ENCOUNTER → 2017-09-16 | Outpatient (REF) | payer OTHER ==
[2017-09-16 16:28] LABS: C REACTIVE PROTEIN QUANTITATIV < 0.30 MG/DL (0.00-0.30); CHOLESTEROL LEVEL 154 MG/DL (<200); CHOLESTEROL RISK RATIO 2.905 (<5); CPK CREATINE PHOSPHOKINASE 111 U/L (26-192); HDL CHOLESTEROL 53 MG/DL (>40); LDL CHOLESTEROL 50.8 MG/DL (<100); NON-HDL-C 101 MG/DL; TRIGLYCERIDES LEVEL 251 MG/DL (<150)
[2017-09-16 16:32] LABS: VITAMIN B12 LEVEL 977 PG/ML (247-911)
[2017-09-16 16:33] LABS: BASO # 0.1 10^3/uL (0.0-0.2); BASO % 0.7 % (0.0-1.0); EOS # 0.2 10^3/uL (0.0-0.50); EOS % 3.1 % (0.0-3.0); HEMATOCRIT 39.5 % (36.0-47.0); HEMOGLOBIN 12.5 g/dl (12.0-15.5); IMMATURE GRANULOCYTE % 0.3 % (0-3.0); LYMPH # 2.3 10^3/uL (1.5-4.5); LYMPH % 32.1 % (24.0-44.0); MEAN CORPUSCULAR HEMOGLOBIN 31.8 pg (27.0-33.0); MEAN CORPUSCULAR HGB CONC 31.6 g/dl (32.0-36.5); MEAN CORPUSCULAR VOLUME 100.5 fl (80.0-96.0); MONO # 0.5 10^3/uL (0.0-0.8); MONO % 6.5 % (0.0-5.0); NEUTROPHILS # 4.1 10^3/uL (1.8-7.7); NEUTROPHILS % 57.3 % (36.0-66.0); PLATELET COUNT, AUTOMATED 254 10^3/uL (150-450); RED BLOOD COUNT 3.93 10^6/uL (4.00-5.40); RED CELL DISTRIBUTION WIDTH 12.4 % (11.5-14.5); RETIC HEMOGLOBIN EQUIVALENT 36.5 pg (24-36); RETICULOCYTE # 103.8 10^9/L (17-77); RETICULOCYTE % 2.6 % (0.5-1.5); WHITE BLOOD COUNT 7.2 10^3/uL (4.0-10.0)
[2017-09-16 16:35] LABS: ESTIMATED AVERAGE GLUCOSE 126 MG/DL (60-110)
== END ==
LOC: M SFHCPLAZ 12:32
DX: D50.9 Iron deficiency anemia, unspecified (principal); E78.5 Hyperlipidemia, unspecified; R73.01 Impaired fasting glucose; E53.8 Deficiency of other specified B group vitamins
CPT/HCPCS: 82550

== ENCOUNTER → 2017-10-11 | Outpatient (REF) | payer OTHER ==
[2017-10-11 18:57] LABS: BASO % 0.6 % (0.0-1.0); EOS # 0.2 10^3/uL (0.0-0.50); EOS % 3.5 % (0.0-3.0); HEMATOCRIT 37.8 % (36.0-47.0); HEMOGLOBIN 11.8 g/dl (12.0-15.5); IMMATURE GRANULOCYTE % 0.4 % (0-3.0); LYMPH # 2.2 10^3/uL (1.5-4.5); LYMPH % 32.4 % (24.0-44.0); MEAN CORPUSCULAR HEMOGLOBIN 32.5 pg (27.0-33.0); MEAN CORPUSCULAR HGB CONC 31.2 g/dl (32.0-36.5); MEAN CORPUSCULAR VOLUME 104.1 fl (80.0-96.0); MONO # 0.6 10^3/uL (0.0-0.8); NEUTROPHILS # 3.8 10^3/uL (1.8-7.7); NEUTROPHILS % 55.1 % (36.0-66.0); PLATELET COUNT, AUTOMATED 251 10^3/uL (150-450); RED BLOOD COUNT 3.63 10^6/uL (4.00-5.40); RED CELL DISTRIBUTION WIDTH 12.4 % (11.5-14.5); RETIC HEMOGLOBIN EQUIVALENT 34.3 pg (24-36); RETICULOCYTE # 96.6 10^9/L (17-77); RETICULOCYTE % 2.7 % (0.5-1.5); WHITE BLOOD COUNT 6.9 10^3/uL (4.0-10.0)
[2017-10-11 19:07] LABS: ALBUMIN 3.9 GM/DL (3.2-5.2); ALBUMIN/GLOBULIN RATIO 1.34 (1.00-1.93); ALKALINE PHOSPHATASE 53 U/L (45-117); ALT/SGPT 22 U/L (12-78); ANION GAP 6 MEQ/L (8-16); AST/SGOT 13 U/L (7-37); BILIRUBIN,TOTAL 0.4 MG/DL (0.2-1.0); BLOOD UREA NITROGEN 24 MG/DL (7-18); CALCIUM LEVEL 9.4 MG/DL (8.8-10.2); CARBON DIOXIDE LEVEL 31 MEQ/L (21-32); CHLORIDE LEVEL 105 MEQ/L (98-107); CREATININE FOR GFR 0.87 MG/DL (0.55-1.30); GLOMERULAR FILTRATION RATE > 60.0 (>32); GLUCOSE, FASTING 100 MG/DL (70-100); POTASSIUM SERUM 4.5 MEQ/L (3.5-5.1); SODIUM LEVEL 142 MEQ/L (136-145); TOTAL PROTEIN 6.8 GM/DL (6.4-8.2)
[2017-10-11 19:14] LABS: ESTIMATED AVERAGE GLUCOSE 137 MG/DL (60-110); HEMOGLOBIN A1c 6.4 %
[2017-10-11 19:15] LABS: TOTAL 25(OH) VITAMIN D 29.9 NG/ML (30.0-100.0)
[2017-10-11 19:16] LABS: PTH INTACT 161.3 PG/ML (18.5-88.0)
[2017-10-14 00:37] LABS: INSULIN LEVEL 10.1 uIU/mL (2.6-24.9)
== END ==
LOC: M SFHCPLAZ 15:02
DX: D50.9 Iron deficiency anemia, unspecified (principal); R73.01 Impaired fasting glucose; I50.30 Unspecified diastolic (congestive) heart failure; E55.9 Vitamin D deficiency, unspecified
CPT/HCPCS: 83525

== ENCOUNTER → 2017-12-09 | Outpatient (REF) | payer OTHER ==
[2017-12-09 20:00] LABS: ALBUMIN 4.4 GM/DL (3.2-5.2); ALBUMIN/GLOBULIN RATIO 1.42 (1.00-1.93); ALKALINE PHOSPHATASE 49 U/L (45-117); ALT/SGPT 19 U/L (12-78); ANION GAP 8 MEQ/L (8-16); AST/SGOT 16 U/L (7-37); BASO % 0.4 % (0.0-1.0); BILIRUBIN,TOTAL 0.3 MG/DL (0.2-1.0); BLOOD UREA NITROGEN 22 MG/DL (7-18); CALCIUM LEVEL 9.4 MG/DL (8.8-10.2); CARBON DIOXIDE LEVEL 29 MEQ/L (21-32); CHLORIDE LEVEL 103 MEQ/L (98-107); CREATININE FOR GFR 0.76 MG/DL (0.55-1.30); EOS # 0.2 10^3/uL (0.0-0.50); EOS % 1.8 % (0.0-3.0); GLOMERULAR FILTRATION RATE > 60.0 (>32); GLUCOSE, FASTING 93 MG/DL (70-100); HEMATOCRIT 38.9 % (36.0-47.0); IMMATURE GRANULOCYTE % 0.3 % (0-3.0); LYMPH # 2.8 10^3/uL (1.5-4.5); LYMPH % 31.1 % (24.0-44.0); MEAN CORPUSCULAR HEMOGLOBIN 32.2 pg (27.0-33.0); MEAN CORPUSCULAR HGB CONC 30.8 g/dl (32.0-36.5); MEAN CORPUSCULAR VOLUME 104.3 fl (80.0-96.0); MONO # 0.7 10^3/uL (0.0-0.8); MONO % 7.5 % (0.0-5.0); NEUTROPHILS # 5.3 10^3/uL (1.8-7.7); NEUTROPHILS % 58.9 % (36.0-66.0); PHOSPHORUS LEVEL 2.8 MG/DL (2.5-4.9); PLATELET COUNT, AUTOMATED 249 10^3/uL (150-450); POTASSIUM SERUM 4.2 MEQ/L (3.5-5.1); RED BLOOD COUNT 3.73 10^6/uL (4.00-5.40); RED CELL DISTRIBUTION WIDTH 12.5 % (11.5-14.5); RETIC HEMOGLOBIN EQUIVALENT 36.4 pg (24-36); RETICULOCYTE # 92.5 10^9/L (17-77); RETICULOCYTE % 2.5 % (0.5-1.5); SODIUM LEVEL 140 MEQ/L (136-145); TOTAL PROTEIN 7.5 GM/DL (6.4-8.2); WHITE BLOOD COUNT 9.1 10^3/uL (4.0-10.0)
[2017-12-09 20:09] LABS: PTH INTACT 188.7 PG/ML (18.5-88.0)
[2017-12-09 20:10] LABS: INR 0.95; PROTHROMBIN TIME 12.8 SECONDS (12.1-14.4)
[2017-12-09 20:11] LABS: PARTIAL THROMBOPLASTIN TIME 34.2 SECONDS (25.4-37.6)
== END ==
LOC: M SFHCPLAZ 16:08
DX: Z01.818 Encounter for other preprocedural examination (principal); H25.13 Age-related nuclear cataract, bilateral; E55.9 Vitamin D deficiency, unspecified
CPT/HCPCS: 80053

== ENCOUNTER → 2018-01-02 | Outpatient (CLI) | payer OTHER | LOC: M WHC 13:55 | DX: Z12.31 Encounter for screening mammogram for malignant neoplasm of breast (principal); M81.0 Age-related osteoporosis without current pathological fracture; M85.851 Other specified disorders of bone density and structure, right thigh; M85.852 Other specified disorders of bone density and structure, left thigh | CPT/HCPCS: 77067 ==

== ENCOUNTER 2018-01-04 07:47 | Day surgery (SDC) | payer OTHER ==
[2018-01-04] MEDS: CEFUROXIME 1MG/0.1ML INTRACAMERAL INJ As Ordered (07:10)
[~2018-01-04 07:47] MED LIST changes: +ACETAMINOPHEN 325 MG TAB PO; +MIDAZOLAM INJ 2 MG/2 ML VIAL (J2250) As Ordered; +PHENYLEPHRINE HCL 10 % OPHTH. SOL 5ML OS; -PROHANCE 279.3MG/ML 15ML VIAL (A9576) As Ordered
[2018-01-04] MEDS: TROPICAMIDE 1% OPHTH SOLN 2ML OS (08:33)
[2018-01-04] MEDS: OFLOXACIN 0.3 % (OCUFLOX) OPTH SOL 5ML OS (08:33)
[2018-01-04] MEDS: PHENYLEPHRINE 2.5% OPHTH SOL 2ML OS (08:33)
[2018-01-04] MEDS: CYCLOPENTOLATE 2% OPHTH SOLN 2ML BTL OS (08:33)
[2018-01-04] MEDS: LIDOCAINE 3.5 % 1ML OPHTH TOPICAL GEL OU (08:33)
[2018-01-04] MEDS: POVIDONE-IODINE 5% OPHTH PREP SOL 30ML As Ordered (09:42)
[2018-01-04] MEDS: MOXIFLOXACIN IN BSS 0.25MG/0.25ML INTRACAMERAL INJ (OR EYE ONLY)(J2280) As Ordered (09:42)
[2018-01-04] MEDS: TRIAMCINOLONE PRES FR 40 MG/ML 1ML(TRIESENCE)(OR EYE ONLY)(J3300 PER 1MG) As Ordered (09:42)
[2018-01-04] MEDS: LIDOCAINE 1% SDV 5 ML VIAL As Ordered (09:42)
[2018-01-04] MEDS: HEALON DUET (HEALON 10MG/ML 0.55ML & HEALON ENDOCOAT 30MG/ML 0.85ML) As Ordered ×2 (09:42)
[2018-01-04] MEDS: BSS with VANC/TOB/EPI for EYE CASES IR (09:42)
[2018-01-04] MEDS ORDERED: MIDAZOLAM INJ 2 MG/2 ML VIAL (J2250) As Ordered (10:01)
[2018-01-04] MEDS ORDERED: PROPARACAINE 0.5% OPHTH SOL 15ML As Ordered (11:07)
[2018-01-04] MEDS: AcetaZOLAMIDE 500 MG ER CAP PO (11:15)
[2018-01-04] MEDS: PROPARACAINE 0.5% OPHTH SOL 15ML OS (11:15)
[2018-01-04] MEDS ORDERED: TRIMETHOBENZAMIDE 300 MG CAP PO (12:00)
== END 2018-01-04 11:15 | disposition home or self-care (01) ==
LOC: M SDC 07:47
DX: H26.9 Unspecified cataract (principal); H52.202 Unspecified astigmatism, left eye; I25.10 Atherosclerotic heart disease of native coronary artery without angina pectoris; I10 Essential (primary) hypertension; E78.5 Hyperlipidemia, unspecified; K21.9 Gastro-esophageal reflux disease without esophagitis; F41.9 Anxiety disorder, unspecified; F32.9 Major depressive disorder, single episode, unspecified; Z79.899 Other long term (current) drug therapy; Z88.0 Allergy status to penicillin
CPT/HCPCS: 66984

== ENCOUNTER 2018-01-11 07:06 | Day surgery (SDC) | payer OTHER ==
[~2018-01-11 07:06] MED LIST changes: -MIDAZOLAM INJ 2 MG/2 ML VIAL (J2250) As Ordered; +PHENYLEPHRINE HCL 10 % OPHTH. SOL 5ML OD; -PHENYLEPHRINE HCL 10 % OPHTH. SOL 5ML OS
[2018-01-11] MEDS: TROPICAMIDE 1% OPHTH SOLN 2ML OD (07:36)
[2018-01-11] MEDS: CYCLOPENTOLATE 2% OPHTH SOLN 2ML BTL OD (07:37)
[2018-01-11] MEDS: OFLOXACIN 0.3 % (OCUFLOX) OPTH SOL 5ML OD (07:37)
[2018-01-11] MEDS: LIDOCAINE 3.5 % 1ML OPHTH TOPICAL GEL OU (07:37)
[2018-01-11] MEDS: PHENYLEPHRINE 2.5% OPHTH SOL 2ML OD (07:37)
[2018-01-11] MEDS ORDERED: fentaNYL 100 MCG/2 ML INJECTION (J3010) As Ordered (08:17)
[2018-01-11] MEDS ORDERED: MIDAZOLAM INJ 2 MG/2 ML VIAL (J2250) As Ordered (08:17)
[2018-01-11] MEDS: HEALON DUET (HEALON 10MG/ML 0.55ML & HEALON ENDOCOAT 30MG/ML 0.85ML) As Ordered (08:42)
[2018-01-11] MEDS: MOXIFLOXACIN IN BSS 0.25MG/0.25ML INTRACAMERAL INJ (OR EYE ONLY)(J2280) As Ordered (08:42)
[2018-01-11] MEDS: LIDOCAINE 1% SDV 5 ML VIAL As Ordered (08:42)
[2018-01-11] MEDS: LIDOCAINE 2% W/EPIN INJ 20ML **PRES FREE As Ordered (08:42)
[2018-01-11] MEDS: POVIDONE-IODINE 5% OPHTH PREP SOL 30ML As Ordered (08:42)
[2018-01-11] MEDS: TRIAMCINOLONE PRES FR 40 MG/ML 1ML(TRIESENCE)(OR EYE ONLY)(J3300 PER 1MG) As Ordered (08:42)
[2018-01-11] MEDS: BSS with VANC/TOB/EPI for EYE CASES IR (08:42)
[2018-01-11] MEDS: AcetaZOLAMIDE 500 MG ER CAP PO (10:05)
[2018-01-11] MEDS ORDERED: TRIMETHOBENZAMIDE 300 MG CAP PO (10:15)
== END 2018-01-11 10:10 | disposition home or self-care (01) ==
LOC: M SDC 07:06
DX: H26.9 Unspecified cataract (principal); I25.2 Old myocardial infarction; I10 Essential (primary) hypertension; Z79.899 Other long term (current) drug therapy; E78.5 Hyperlipidemia, unspecified; K21.9 Gastro-esophageal reflux disease without esophagitis; F32.9 Major depressive disorder, single episode, unspecified; F41.9 Anxiety disorder, unspecified; Z88.0 Allergy status to penicillin
CPT/HCPCS: 66984

== ENCOUNTER → 2018-02-28 | Outpatient (REF) | payer OTHER ==
[2018-02-28 13:01] LABS: ALBUMIN/GLOBULIN RATIO 1.33 (1.00-1.93); ALKALINE PHOSPHATASE 51 U/L (45-117); ALT/SGPT 21 U/L (12-78); ANION GAP 6 MEQ/L (8-16); AST/SGOT 15 U/L (7-37); BILIRUBIN,TOTAL 0.3 MG/DL (0.2-1.0); BLOOD UREA NITROGEN 23 MG/DL (7-18); CALCIUM LEVEL 10.1 MG/DL (8.8-10.2); CARBON DIOXIDE LEVEL 29 MEQ/L (21-32); CHLORIDE LEVEL 105 MEQ/L (98-107); GLOMERULAR FILTRATION RATE > 60.0 (>32); GLUCOSE, FASTING 102 MG/DL (70-100); NT-PRO BNP 257 PG/ML (<450); POTASSIUM SERUM 4.6 MEQ/L (3.5-5.1); SODIUM LEVEL 140 MEQ/L (136-145)
== END ==
LOC: M SFHCPLAZ 10:39
DX: I50.30 Unspecified diastolic (congestive) heart failure (principal); Z23 Encounter for immunization
CPT/HCPCS: 80053

== ENCOUNTER 2018-03-25 21:56 | Emergency (ER) | payer OTHER ==
[~2018-03-25] VITALS: Ht 152.4 cm; Wt 80.9 kg
[~2018-03-25 21:56] MED LIST changes: +*BLDWK7; +/ALEN7SOL OR; +/ESOM40CA OR; +/ESOM40CA PO; +/LOR25TA OR; +/WARF25TA PO; +/ZIAC5TA PO; -ACETAMINOPHEN 325 MG TAB PO; +ACTONEL; +ACTONEL35 PO; +ALPR0.5T3 OR; +AMBI10TA PO; +AMBI5TAB OR; +AMBIEN; +AMBIEN10 PO; +AMBIENCR PO; +AMITRIP25 PO; +ANEXIA; +ATARAX25 PO; +ATARAX50 PO; +ATENOLOL50 PO; +AVAPRO150 PO; +AVELOX PO; +AZELASTINE SPRAY; +B-6 PO; +BACTRIMDS PO; +BIOT10008 PO; +BIOT50004 PO; +BISO10TA2 OR; +BISO10TA6 PO; +BISOPROLOL PO; +CALC500T49 PO; +CALCCHW12 OR; +CALCTAB68 PO; +CEFTIN500 PO; +CELE20TA OR; +CELEBRE200 PO; +CENTRUM SILVER PO; +CHOL4PKT PO; +CHOL4POW4 PO; +CIPRO500 PO; +CLON0.5T8 PO; +COLA100C5 PO; +CRES40TA PO; +CRESTOR5 PO; +DOXEPIN PO; +DOXYCYC100 PO; +DURAGE TOPICAL; +ERYTHRO PO; +EXCETAB OR; +EXCETAB49 PO; +FELO5TAB4 OR; +FERR1TAB8 PO; +FERR325T OR; +FERR325T PO; +FERROUS325 PO; +FISH1000 OR; +FLECTOR1.3 TOP; +FLEXERIL PO; +FLON0.05; +FLON1SPR; +FLONASESPR NASAL; +FLUTISP; +FOSA70TA PO; +FOSAMAX70 PO; +FURO20TA2 OR; +FURO20TA2 PO; +GABA600T4 PO; +HCTZ25 PO; +HYDR-3719 PO; +HYDROCHLOROTHIAZIDE PO; +KLOR10TA76 PO; +LASI20TA OR; +LESCOLXL80 PO; +LEVA500T OR; +LIDO5TD TOP; +LIDODERM PATCH; +LIDODERM PATCH TOP; +LIPITOR20 PO; +LIPITOR40 PO; +LOPE2CAP PO; +MAGN400T5 PO; +MAVIK2 PO; +METAMUCIL; +MULTIVIT PO; +MYCELEXTRO PO; +MYLATAB; +NASACORT; +NASACORT AQ; +NASACORT INH; +NASACORT NASALLY; +NASONEX NASAL; +NEUR100C OR; +NEUR400C OR; +NEXI40CA PO; +NEXIUM; +NEXIUM40 PO; +PARO20TA3 PO; +PARO20TA4 PO; -PHENYLEPHRINE HCL 10 % OPHTH. SOL 5ML OD; +PRAVACHOL2 PO; +QUESTRAN; +QUESTRAN PO; +REGL5TAB2 PO; +ROXICET PO; +SERZONE PO; +SING10TA31 OR; +SLOWTAB2 PO; +SULF1TAB93 PO; +THERGRAN; +TRAM50TA2 OR; +TRAZ-163 PO; +TRAZ0DON5 PO; +TRAZODON15 PO; +TRICOR145 PO; +TRICOR160 PO; +TUSSIONEX PO; +TYLE500T53 OR; +TYLENOLCOD PO; +UNIS25TA3 PO; +VICODIN PO; +VICODIN-ES PO; +VICODINES TAB OR; +VIT D 2000 OR; +VITA-113 PO; +VITA10002 PO; +VITA100T OR; +VITA200015 PO; +VITA400C OR; +VITACAP31 PO; +VITAMIN B 6; +VITAMIN B-6 PO; +VITAMIN E PO; +VOLT1GEL EXT; +VOLT1GEL TOP; +VYTORIN40 PO; +ZIAC; +ZIAC10 PO; +ZOCO40TA OR; +ZOCO40TA PO; +ZOCOR; +ZOCOR40 PO; +[UNRECOGNIZED DRUG - CODE] TOPICAL; +[UNRECOGNIZED DRUG - OTHER] PO; +[UNRECOGNIZED DRUG - OTHER] PO; +[UNRECOGNIZED DRUG - OTHER] PO
--- NOTE | 2018-03-25 23:09 | REPVR ---
EXAM: CT Head Without Contrast EXAM DATE/TIME: 03/25/2018 10:41 PM CLINICAL HISTORY: 82 years old, female; Signs and symptoms; Altered mental status/memory loss; Confusion or disorientation; Additional info: Confusion, frequent falls TECHNIQUE: Axial computed tomography images of the head/brain without contrast. All CT scans at this facility use at least one of these dose optimization techniques: automated exposure control; mA and/or kV adjustment per patient size (includes targeted exams where dose is matched to clinical indication); or iterative reconstruction. COMPARISON: CT Head without contrast 06/28/2016 1:51 PM FINDINGS: Brain: No evidence of intracranial bleed. There are prominent patchy areas of low-density in the periventricular white matter consistent with chronic ischemic changes. This is very similar to the examination of 2017. Ventricles: Normal appearing ventricles. Bones/joints: No evidence of fracture. Sinuses: Clear paranasal sinuses. Mastoid air cells: Clear mastoid air cells. Soft tissues: Normal. IMPRESSION: 1. No evidence of intracranial bleed. 2. Chronic ischemic changes. Electronically signed by: Juan Ramon Leone On 03/25/2018 23:09:16 PM
[2018-03-25 23:39] LABS: BASO % 0.5 % (0.0-1.0); EOS # 0.3 10^3/uL (0.0-0.50); EOS % 3.2 % (0.0-3.0); HEMATOCRIT 39.8 % (36.0-47.0); HEMOGLOBIN 12.5 g/dl (12.0-15.5); LYMPH # 1.8 10^3/uL (1.5-4.5); LYMPH % 20.9 % (24.0-44.0); MEAN CORPUSCULAR HEMOGLOBIN 32.2 pg (27.0-33.0); MEAN CORPUSCULAR HGB CONC 31.4 g/dl (32.0-36.5); MEAN CORPUSCULAR VOLUME 102.6 fl (80.0-96.0); MONO # 0.8 10^3/uL (0.0-0.8); MONO % 8.6 % (0.0-5.0); NEUTROPHILS # 5.8 10^3/uL (1.8-7.7); NEUTROPHILS % 66.6 % (36.0-66.0); PLATELET COUNT, AUTOMATED 259 10^3/uL (150-450); RED BLOOD COUNT 3.88 10^6/uL (4.00-5.40); WHITE BLOOD COUNT 8.7 10^3/uL (4.0-10.0)
[2018-03-25 23:53] LABS: INR 0.92; PROTHROMBIN TIME 12.4 SECONDS (12.1-14.4)
[2018-03-25 23:54] LABS: PARTIAL THROMBOPLASTIN TIME 33.3 SECONDS (25.4-37.6)
[2018-03-26 00:14] LABS: ALBUMIN 3.7 GM/DL (3.2-5.2); ALT/SGPT 26 U/L (12-78); BILIRUBIN,DIRECT < 0.1 MG/DL (0.0-0.2); BILIRUBIN,TOTAL 0.2 MG/DL (0.2-1.0); BLOOD UREA NITROGEN 17 MG/DL (7-18); CALCIUM LEVEL 9.5 MG/DL (8.8-10.2); CARBON DIOXIDE LEVEL 29 MEQ/L (21-32); CHLORIDE LEVEL 105 MEQ/L (98-107); CPK CREATINE PHOSPHOKINASE 129 U/L (26-192); CREATININE FOR GFR 0.86 MG/DL (0.55-1.30); GLOMERULAR FILTRATION RATE > 60.0 (>32); GLUCOSE, FASTING 126 MG/DL (70-100); LIPASE 121 U/L (73-393); MB/CK RELATIVE INDEX 2.09 (< OR =4); POTASSIUM SERUM 4.5 MEQ/L (3.5-5.1); SODIUM LEVEL 140 MEQ/L (136-145); TOTAL PROTEIN 6.9 GM/DL (6.4-8.2); TROPONIN I < 0.02 NG/ML (< 0.10)
[2018-03-26] MEDS ORDERED: ACETAMINOPHEN TAB 650MG DOSE (2X325MG) PO ONE (01:15)
[2018-03-26] MEDS ORDERED: KETOROLAC 30 MG/ML VIAL (J1885) IV ONE (01:15)
[2018-03-26 01:56] VITALS: BP 145/75
--- NOTE | 2018-03-26 09:16 | REP ---
Clinical: Trauma. Fall. Technique: AP, lateral, bilateral oblique and sunrise views of the left knee. Findings: Osteopenia and advanced tricompartmental osteoarthritic degenerative changes are appreciated including cortical irregularity, osteophytosis, joint space narrowing, subchondral sclerosis/heterogeneity, and chondrocalcinosis. Lateral demonstrates moderate anterior prepatellar swelling. No obvious acute fracture dislocation. No definite effusion. Impression: Advanced degenerative changes. Anterior swelling. No obvious acute fracture or dislocation. Electronically Signed by Izaiah Garrido MD 03/26/2018 09:08 A
--- NOTE | 2018-03-26 09:17 | REP ---
Clinical: Altered mental status . Comparison: 06/28/2016 . Technique: PA and lateral. Findings: The mediastinum and cardiac silhouette are normal. The lung benites are clear and without acute consolidation, effusion, or pneumothorax. The skeletal structures are intact and normal. Evidence for left axillary node dissection and cervical fusion. Impression: 1. No acute cardiopulmonary process. Electronically Signed by Izaiah Garrido MD 03/26/2018 09:09 A
--- NOTE | 2018-03-26 09:18 | REP ---
Clinical: Trauma/fall. Technique: AP, lateral, bilateral oblique views of the left ankle. Findings: Osteopenia and early advanced arthritic degenerative changes are appreciated. No obvious acute fracture or dislocation. Impression: Osteopenia and degenerative changes. No acute fracture. Electronically Signed by Izaiah Garrido MD 03/26/2018 09:09 A
--- NOTE | 2018-03-26 17:26 | ECGEPIP ---
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
== END 2018-03-26 01:59 | disposition home or self-care (01) ==
LOC: M ED 21:56
DX: R29.6 Repeated falls (principal); M25.562 Pain in left knee; M25.572 Pain in left ankle and joints of left foot; R04.0 Epistaxis; I44.0 Atrioventricular block, first degree; M17.12 Unilateral primary osteoarthritis, left knee; M85.872 Other specified disorders of bone density and structure, left ankle and foot; M19.072 Primary osteoarthritis, left ankle and foot; I25.10 Atherosclerotic heart disease of native coronary artery without angina pectoris; I10 Essential (primary) hypertension; Z86.19 Personal history of other infectious and parasitic diseases; G89.29 Other chronic pain; M54.9 Dorsalgia, unspecified; Z79.899 Other long term (current) drug therapy; Z88.6 Allergy status to analgesic agent; Z88.0 Allergy status to penicillin; Z88.8 Allergy status to other drugs, medicaments and biological substances
CPT/HCPCS: 70450; 71046; 73564; 73610; 80048; 80076; 81001; 82550; 82553; 83690; 84484; 85025; 85610; 85730; 87088; 87186; 93005; 93041; 96374; 99284; J1885

== ENCOUNTER → 2018-07-21 | Outpatient (REF) | payer MEDICARE ==
[~2018-07-21] MED LIST changes: -/ESOM40CA OR; -/ESOM40CA PO; -/WARF25TA PO; -/ZIAC5TA PO; +COUM1TAB18 PO; +NEXI1CAP3 OR; +NEXI1CAP3 PO; +ZIAC1TAB PO
[2018-07-21 16:08] LABS: BLOOD UREA NITROGEN 17 MG/DL (7-18); CALCIUM LEVEL 9.8 MG/DL (8.8-10.2); CARBON DIOXIDE LEVEL 31 MEQ/L (21-32); CHLORIDE LEVEL 106 MEQ/L (98-107); CREATININE FOR GFR 0.82 MG/DL (0.55-1.30); GLOMERULAR FILTRATION RATE > 60.0 (>32); GLUCOSE, FASTING 102 MG/DL (70-100); NT-PRO BNP 224 PG/ML (<450); PHOSPHORUS LEVEL 2.8 MG/DL (2.5-4.9); POTASSIUM SERUM 4.4 MEQ/L (3.5-5.1); SODIUM LEVEL 142 MEQ/L (136-145); TOTAL PROTEIN 7.1 GM/DL (6.4-8.2)
[2018-07-21 16:16] LABS: PTH INTACT 157.8 PG/ML (18.5-88.0); TOTAL 25(OH) VITAMIN D 32.1 NG/ML (30.0-100.0)
[2018-07-21 16:19] LABS: BASO % 0.4 % (0.0-1.0); EOS # 0.2 10^3/uL (0.0-0.50); EOS % 2.8 % (0.0-3.0); HEMATOCRIT 40.7 % (36.0-47.0); HEMOGLOBIN 12.6 g/dl (12.0-15.5); LYMPH # 2.2 10^3/uL (1.5-4.5); LYMPH % 31.3 % (24.0-44.0); MEAN CORPUSCULAR HEMOGLOBIN 31.5 pg (27.0-33.0); MEAN CORPUSCULAR VOLUME 101.8 fl (80.0-96.0); MONO # 0.6 10^3/uL (0.0-0.8); MONO % 8.3 % (0.0-5.0); NEUTROPHILS # 3.9 10^3/uL (1.8-7.7); NEUTROPHILS % 56.9 % (36.0-66.0); PLATELET COUNT, AUTOMATED 247 10^3/uL (150-450); WHITE BLOOD COUNT 6.9 10^3/uL (4.0-10.0)
[2018-07-21 16:46] LABS: HEMOGLOBIN A1c 6.5 %
[2018-07-25 10:52] LABS: ALBUMIN 4.39 GM/DL (3.29-5.55); ALBUMIN % 61.8 % (55.8-66.1); ALPHA-2-GLOBULINS % 12.9 % (7.1-11.8); BETA-2-GLOBULINS % 5.5 % (3.2-6.5); GAMMA GLOBULIN % 9.8 % (11.1-18.8)
[2018-07-25 10:53] LABS: ALPHA-1-GLOBULINS 0.28 GM/DL (0.17-0.41); ALPHA-2-GLOBULINS 0.92 GM/DL (0.42-0.99); BETA-1-GLOBULINS 0.43 GM/DL (0.28-0.60); BETA-2-GLOBULINS 0.39 GM/DL (0.19-0.55)
== END ==
LOC: M SFHCPLAZ 12:56
PROVIDERS: ATTEND Family Medicine
DX: E55.9 Vitamin D deficiency, unspecified (principal); I50.30 Unspecified diastolic (congestive) heart failure; R73.01 Impaired fasting glucose

== ENCOUNTER 2018-08-26 14:23 | Emergency (ER) | payer MEDICARE ==
[~2018-08-26] VITALS: Ht 154.9 cm; Wt 76.7 kg
[2018-08-26] MEDS ORDERED: CYCL10TA PO (14:33)
[2018-08-26] MEDS ORDERED: GABA-845 PO (14:35)
[2018-08-26] MEDS ORDERED: NORCO, ANEXSIA 5/325MG TABLET (HYDROcodone/ACETAMINOPHEN) PO ONE (15:15)
--- NOTE | 2018-08-26 15:43 | REP ---
Clinical: Trauma. Fall. Technique: AP and lateral views of the right tibia / fibula. Findings: Osteopenia and degenerative changes are appreciated. Soft tissue swelling surrounds the ankle. No definite acute fracture or dislocation appreciated. Evidence of prior knee replacement. Impression: Osteopenia and degenerative changes. Swelling at the ankle. No definite acute fracture identified. Electronically Signed by Izaiah Garrido MD 08/26/2018 03:35 P
--- NOTE | 2018-08-26 15:44 | REP ---
Clinical: Fall. Technique: Neutral and frog lateral views of the right hip. Findings: Osteopenia and arthritic changes are appreciated. No acute fracture or dislocation identified. Impression: No acute fracture or dislocation. Electronically Signed by Izaiah Garrido MD 08/26/2018 03:36 P
--- NOTE | 2018-08-26 15:45 | REP ---
Clinical: Fall. Pain. Technique: AP, lateral, bilateral oblique and coned-down views of the lumbosacral spine. Findings: Evidence of prior posterior fixation at L4 - S1. Advanced multilevel degenerative disc osteophyte complexes are appreciated including subchondral sclerosis/heterogeneity, disc space narrowing, osteophytosis, and hypertrophic facet changes. No acute fracture / compression injury or subluxation appreciated. Impression: Advanced multilevel degenerative changes. No acute fracture / compression injury or subluxation. Electronically Signed by Izaiah Garrido MD 08/26/2018 03:37 P
--- NOTE | 2018-08-26 15:46 | REP ---
Clinical: Fall. Pain. Technique: AP and lateral views of the femur. Findings: Visualized portions of the femur appear intact without acute fracture or dislocation. Knee replacement appears to be within normal limits. No subcutaneous emphysema or radiodense foreign body. Impression: No acute fracture or dislocation. Electronically Signed by Izaiah Garrido MD 08/26/2018 03:38 P
--- NOTE | 2018-08-26 15:48 | REP ---
Clinical: Fall. Pain. Technique: Single AP view of the pelvis. Findings: Age-related arthritic changes are appreciated. Evidence for lower lumbar laminectomy and fixation. No acute fracture or dislocation identified. Impression: No acute fracture or dislocation. Electronically Signed by Izaiah Garrido MD 08/26/2018 03:39 P
[2018-08-26] MEDS ORDERED: NORC1TAB7 PO (16:17)
[2018-08-26 16:23] VITALS: O2SAT 97
[2018-08-26 16:31] VITALS: BP 111/69
== END 2018-08-26 16:32 | disposition home or self-care (01) ==
LOC: M ED 14:23
DX: M54.9 Dorsalgia, unspecified (principal); M25.551 Pain in right hip; M79.604 Pain in right leg; W19.XXXA Unspecified fall, initial encounter; Y92.098 Other place in other non-institutional residence as the place of occurrence of the external cause; I10 Essential (primary) hypertension; E78.9 Disorder of lipoprotein metabolism, unspecified; M48.00 Spinal stenosis, site unspecified; K57.90 Diverticulosis of intestine, part unspecified, without perforation or abscess without bleeding; N17.9 Acute kidney failure, unspecified; Z87.440 Personal history of urinary (tract) infections; Z86.19 Personal history of other infectious and parasitic diseases; F03.90 Unspecified dementia, unspecified severity, without behavioral disturbance, psychotic disturbance, mood disturbance, and anxiety; Z86.73 Personal history of transient ischemic attack (TIA), and cerebral infarction without residual deficits; Z88.0 Allergy status to penicillin; Z88.6 Allergy status to analgesic agent; Z88.8 Allergy status to other drugs, medicaments and biological substances

== ENCOUNTER → 2018-12-22 | Outpatient (REF) | payer MEDICARE ==
[~2018-12-22] MED LIST changes: +BISO10TA10 PO; -BISO10TA6 PO; +CYAN100049 PO; +CYCL10TA PO; +GABA-845 PO; +NORC1TAB7 PO; -VITA10002 PO
[2018-12-22 19:26] LABS: ALT/SGPT 17 U/L (12-78); BILIRUBIN,TOTAL 0.8 MG/DL (0.2-1.0); BLOOD UREA NITROGEN 26 MG/DL (7-18); C REACTIVE PROTEIN QUANTITATIV < 0.30 MG/DL (0.00-0.30); CALCIUM LEVEL 10.2 MG/DL (8.8-10.2); CARBON DIOXIDE LEVEL 28 MEQ/L (21-32); CHLORIDE LEVEL 105 MEQ/L (98-107); CHOLESTEROL LEVEL 158 MG/DL (<200); CHOLESTEROL RISK RATIO 3.224 (<5); CPK CREATINE PHOSPHOKINASE 149 U/L (26-192); CREATININE FOR GFR 0.89 MG/DL (0.55-1.30); FREE T4 0.92 NG/DL (0.76-1.46); GLOMERULAR FILTRATION RATE > 60.0 (>32); GLUCOSE, FASTING 100 MG/DL (70-100); HDL CHOLESTEROL 49 MG/DL (>40); LDL CHOLESTEROL 66 MG/DL (<100); NON-HDL-C 109 MG/DL; POTASSIUM SERUM 4.8 MEQ/L (3.5-5.1); PTH INTACT 150.4 PG/ML (18.5-88.0); SODIUM LEVEL 141 MEQ/L (136-145); THYROID STIMULATING HORMONE 0.935 uIU/ML (0.358-3.740); TOTAL PROTEIN 7.1 GM/DL (6.4-8.2); TRIGLYCERIDES LEVEL 213 MG/DL (<150)
[2018-12-22 21:46] LABS: HEMOGLOBIN A1c 6.1 %
== END ==
LOC: M SFHCPLAZ 14:35
PROVIDERS: ATTEND Family Medicine
DX: E78.5 Hyperlipidemia, unspecified (principal); R73.01 Impaired fasting glucose; E55.9 Vitamin D deficiency, unspecified

== ENCOUNTER → 2019-01-04 | Outpatient (CLI) | payer MEDICARE ==
--- NOTE | 2019-01-04 16:26 | REP ---
BILATERAL SCREENING DIGITAL MAMMOGRAM WITH 3D TOMOSYNTHESIS: There are no palpable abnormalities or other breast complaints. The the patient states she has not had a clinical breast examination in over a year. The the patient states she performs self-breast examinations zero times per year. The Tyrer-Cuzick Score is: 2.0% . Comparison is 12/25/2014. There are scattered areas of fibroglandular density. There is no dominant mass, micro calcific cluster or architectural distortion that would indicate malignancy. There are no additional findings on 3D tomosynthesiss. There is no change from the prior study. Impression: BIRADS/ACR category 1 mammogram. Negative. Recommendation: Routine annual screening mammography. This mammogram was interpreted with the aid of a FDA approved computer-aided detection system. A. Negative mammogram reports should not delay biopsy if a dominant or clinically suspicious mass is present. B. Not all breast cancers are identified by mammography or tomosynthesis. C. Adenosis and dense breasts may obscure an underlying neoplasm. Patient letter M1. Electronically Signed by Franki Foster MD 01/04/2019 04:18 P
== END ==
LOC: M WHC 14:53
PROVIDERS: ATTEND Family Medicine
DX: Z12.31 Encounter for screening mammogram for malignant neoplasm of breast (principal)

== ENCOUNTER 2019-02-13 17:19 | Emergency (ER) | payer MEDICARE ==
[~2019-02-13] VITALS: Ht 137.2 cm; Wt 72.3 kg
[2019-02-13] MEDS ORDERED: NS 1,000 ML IV SCH (17:48)
[2019-02-13 18:10] LABS: BASO % 0.3 % (0.0-1.0); EOS # 0.1 10^3/uL (0.0-0.5); EOS % 0.5 % (0.0-3.0); HEMATOCRIT 44.2 % (36.0-47.0); LYMPH # 1.5 10^3/uL (1.5-5.0); MEAN CORPUSCULAR HEMOGLOBIN 31.7 pg (27.0-33.0); MEAN CORPUSCULAR HGB CONC 31.7 g/dl (32.0-36.5); MEAN CORPUSCULAR VOLUME 100.2 fl (80.0-96.0); MONO # 0.8 10^3/uL (0.0-0.8); MONO % 7.5 % (0.0-5.0); NEUTROPHILS # 7.6 10^3/uL (1.5-8.5); NEUTROPHILS % 76.3 % (36.0-66.0); PLATELET COUNT, AUTOMATED 323 10^3/uL (150-450); RED BLOOD COUNT 4.41 10^6/uL (4.00-5.40)
[2019-02-13 18:38] LABS: ALBUMIN 4.1 GM/DL (3.2-5.2); BILIRUBIN,DIRECT 0.1 MG/DL (0.0-0.2); BILIRUBIN,TOTAL 0.6 MG/DL (0.2-1.0); TOTAL PROTEIN 7.6 GM/DL (6.4-8.2)
--- NOTE | 2019-02-13 21:04 | REP ---
ABDOMINAL SERIES: Supine and erect views of the abdomen demonstrate no free air. There is mild air in the colon which is not distended. A few mildly dilated small bowel loops in the right mid abdomen may represent a mild focal ileus. Phleboliths are seen in the pelvis. There are degenerative changes of the spine. Metallic clips are seen in the right upper quadrant. Metallic hardware is seen in the lower lumbar spine, status post fusion and laminectomy at L4-L5. There are degenerative changes of the sacroiliac joints and pubic symphysis. An accompanying view of the chest demonstrates no acute infiltrate. There is calcification and tortuosity of the thoracic aorta. Metallic clips are seen overlying the left chest wall. Metallic fixation is seen in the cervical spine. IMPRESSION: No free air. A few mildly dilated small bowel loops in the right mid abdomen may represent a mild focal ileus. No infiltrate in either lung. Electronically Signed by Franki Best MD 02/14/2019 03:44 P
[2019-02-13 21:13] VITALS: BP 134/66
== END 2019-02-13 21:25 | disposition home or self-care (01) ==
LOC: M ED 17:19
DX: R19.7 Diarrhea, unspecified (principal); R63.4 Abnormal weight loss; R53.83 Other fatigue; I11.0 Hypertensive heart disease with heart failure; I50.9 Heart failure, unspecified; E78.5 Hyperlipidemia, unspecified; N17.9 Acute kidney failure, unspecified; K57.90 Diverticulosis of intestine, part unspecified, without perforation or abscess without bleeding; Z87.19 Personal history of other diseases of the digestive system; Z88.0 Allergy status to penicillin; Z88.6 Allergy status to analgesic agent; Z88.8 Allergy status to other drugs, medicaments and biological substances; Z79.899 Other long term (current) drug therapy; Z79.891 Long term (current) use of opiate analgesic

== ENCOUNTER 2019-02-15 22:20 | Emergency (ER) | payer MEDICARE ==
[~2019-02-15] VITALS: Ht 152.4 cm; Wt 163.0 kg
[2019-02-15 23:13] LABS: BASO % 0.5 % (0.0-1.0); EOS # 0.2 10^3/uL (0.0-0.5); EOS % 2.4 % (0.0-3.0); HEMATOCRIT 40.9 % (36.0-47.0); HEMOGLOBIN 12.8 g/dl (12.0-15.5); LYMPH # 2.2 10^3/uL (1.5-5.0); LYMPH % 30.3 % (24.0-44.0); MEAN CORPUSCULAR HEMOGLOBIN 32.1 pg (27.0-33.0); MEAN CORPUSCULAR HGB CONC 31.3 g/dl (32.0-36.5); MEAN CORPUSCULAR VOLUME 102.5 fl (80.0-96.0); MONO # 0.7 10^3/uL (0.0-0.8); MONO % 9.4 % (0.0-5.0); NEUTROPHILS # 4.2 10^3/uL (1.5-8.5); NEUTROPHILS % 57.1 % (36.0-66.0); PLATELET COUNT, AUTOMATED 292 10^3/uL (150-450); RED BLOOD COUNT 3.99 10^6/uL (4.00-5.40); WHITE BLOOD COUNT 7.4 10^3/uL (4.0-10.0)
[2019-02-15 23:17] LABS: INR 1.09; PROTHROMBIN TIME 13.8 SECONDS (11.8-14.0)
[2019-02-15 23:18] LABS: PARTIAL THROMBOPLASTIN TIME 32.5 SECONDS (25.0-38.4)
[2019-02-15 23:28] LABS: ALT/SGPT 26 U/L (12-78); BILIRUBIN,DIRECT < 0.1 MG/DL (0.0-0.2); BILIRUBIN,TOTAL 0.4 MG/DL (0.2-1.0); BLOOD UREA NITROGEN 23 MG/DL (7-18); CALCIUM LEVEL 9.6 MG/DL (8.8-10.2); CARBON DIOXIDE LEVEL 27 MEQ/L (21-32); CHLORIDE LEVEL 104 MEQ/L (98-107); CK-MB VALUE MASS 3.5 NG/ML (<3.6); CPK CREATINE PHOSPHOKINASE 149 U/L (26-192); CREATININE FOR GFR 1.05 MG/DL (0.55-1.30); GLOMERULAR FILTRATION RATE 53.4 (>32); GLUCOSE, FASTING 124 MG/DL (70-100); LIPASE 139 U/L (73-393); MB/CK RELATIVE INDEX 2.35 (< OR =4); POTASSIUM SERUM 3.9 MEQ/L (3.5-5.1); SODIUM LEVEL 139 MEQ/L (136-145); TOTAL PROTEIN 7.2 GM/DL (6.4-8.2); TROPONIN I < 0.02 NG/ML (< 0.10)
[2019-02-15] MEDS ORDERED: ISOVUE-370 76% 100ML VIAL (Q9967) As Ordered ONE (23:43)
[2019-02-16] MEDS ORDERED: GI COCKTAIL 50ML BTL(HYOSCYAMINE/MAALOX/LIDOCAINE VISCOUS)(1:3:1) PO ONE
[2019-02-16] MEDS ORDERED: PANTOPRAZOLE 40MG TAB (PROTONIX) PO ONE
--- NOTE | 2019-02-16 00:37 | REPVR ---
PROCEDURE INFORMATION: Exam: CT Angiography Chest With Contrast Exam date and time: 02/15/2019 11:51 PM Age: 83 years old Clinical history: Chest pain; Additional info: Cp TECHNIQUE: Imaging protocol: Computed tomographic angiography of the chest with intravenous contrast. 3D rendering: MIP reconstructed images were created and reviewed. Radiation optimization: All CT scans at this facility use at least one of these dose optimization techniques: automated exposure control; mA and/or kV adjustment per patient size (includes targeted exams where dose is matched to clinical indication); or iterative reconstruction. Contrast material: ISOVUE 370; Contrast volume: 75 ml; Contrast route: IV; COMPARISON: CR Abdomen,Flat Upright,PA CHEST 02/13/2019 6:18 PM FINDINGS: Pulmonary arteries: Pulmonary embolism in the left upper lobe anterior segment pulmonary artery. Small subsegmental embolism in the right lower lobe. No large central pulmonary embolism is seen. Aorta: Unremarkable. No aortic aneurysm. No aortic dissection. Lungs: Hypoventilatory changes in the lungs. No airspace consolidation or masses. Pleural space: Unremarkable. No pneumothorax. No pleural effusion. Heart: Unremarkable. No cardiomegaly. No pericardial effusion. Lymph nodes: Unremarkable. No enlarged lymph nodes. Bones/joints: Unremarkable. No acute fracture. Soft tissues: Unremarkable. IMPRESSION: 1. Small pulmonary emboli in the left upper lobe and right lower lobe. 2. No signs of right heart strain. Electronically signed by: John Zimmer On 02/16/2019 00:37:40 AM
[2019-02-16] MEDS ORDERED: APIXABAN 5 MG TAB (ELIQUIS) PO ONE (01:00)
[2019-02-16] MEDS ORDERED: ELIQ5TAB PO (01:22)
[2019-02-16 01:30] VITALS: BP 134/73
--- NOTE | 2019-02-16 13:11 | ECGEPIP ---
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
[2019-02-17] MEDS ORDERED: D200CAP2 PO (10:28)
[2019-02-17] MEDS ORDERED: ELIQ5TAB PO (10:28)
[2019-02-17] MEDS ORDERED: EXCETAB44 PO (10:28)
[2019-02-17] MEDS ORDERED: EYEDRO5 OU (10:28)
[2019-02-17] MEDS ORDERED: MAGN400T2 PO (10:28)
[2019-02-17] MEDS ORDERED: MULTCAP PO (10:28)
[2019-02-17] MEDS ORDERED: CVS-161 PO (10:28)
== END 2019-02-16 01:40 | disposition home or self-care (01) ==
LOC: M ED 22:20
DX: I26.99 Other pulmonary embolism without acute cor pulmonale (principal); R11.2 Nausea with vomiting, unspecified; R19.7 Diarrhea, unspecified; I51.9 Heart disease, unspecified; F03.90 Unspecified dementia, unspecified severity, without behavioral disturbance, psychotic disturbance, mood disturbance, and anxiety; K21.9 Gastro-esophageal reflux disease without esophagitis; Z86.73 Personal history of transient ischemic attack (TIA), and cerebral infarction without residual deficits; Z87.891 Personal history of nicotine dependence; Z85.820 Personal history of malignant melanoma of skin; Z88.0 Allergy status to penicillin; Z88.8 Allergy status to other drugs, medicaments and biological substances; Z88.6 Allergy status to analgesic agent; Z79.899 Other long term (current) drug therapy; Z79.891 Long term (current) use of opiate analgesic

== ENCOUNTER 2019-02-17 09:09 | Inpatient (IN) | payer MEDICARE ==
[~2019-02-17] VITALS: Ht 154.9 cm; Wt 68.2 kg
[~2019-02-17 09:09] MED LIST changes: +CLON0.5T2 PO; -CLON0.5T8 PO; +ELIQ5TAB PO
[2019-02-17] MEDS ORDERED: NS 1,000 ML IV ONE (09:30)
[2019-02-17 09:53] LABS: BASO % 0.5 % (0.0-1.0); EOS # 0.2 10^3/uL (0.0-0.5); EOS % 3.6 % (0.0-3.0); HEMATOCRIT 36.4 % (36.0-47.0); LYMPH % 34.4 % (24.0-44.0); MEAN CORPUSCULAR HEMOGLOBIN 31.8 pg (27.0-33.0); MEAN CORPUSCULAR HGB CONC 30.2 g/dl (32.0-36.5); MEAN CORPUSCULAR VOLUME 105.2 fl (80.0-96.0); MONO # 0.5 10^3/uL (0.0-0.8); MONO % 8.2 % (0.0-5.0); NEUTROPHILS # 3.1 10^3/uL (1.5-8.5); NEUTROPHILS % 53.1 % (36.0-66.0); PLATELET COUNT, AUTOMATED 258 10^3/uL (150-450); RED BLOOD COUNT 3.46 10^6/uL (4.00-5.40); WHITE BLOOD COUNT 5.8 10^3/uL (4.0-10.0)
[2019-02-17 10:04] LABS: INR 1.58; PROTHROMBIN TIME 18.6 SECONDS (11.8-14.0)
[2019-02-17 10:11] LABS: PARTIAL THROMBOPLASTIN TIME 34.5 SECONDS (25.0-38.4)
[2019-02-17 10:25] LABS: ALBUMIN 3.7 GM/DL (3.2-5.2); ALT/SGPT 21 U/L (12-78); BILIRUBIN,DIRECT < 0.1 MG/DL (0.0-0.2); BILIRUBIN,TOTAL 0.4 MG/DL (0.2-1.0); CK-MB VALUE MASS 2.1 NG/ML (<3.6); CPK CREATINE PHOSPHOKINASE 83 U/L (26-192); LIPASE 203 U/L (73-393); MB/CK RELATIVE INDEX 2.53 (< OR =4); TOTAL PROTEIN 6.5 GM/DL (6.4-8.2); TROPONIN I < 0.02 NG/ML (< 0.10)
--- NOTE | 2019-02-17 10:25 | REP ---
REASON FOR EXAM: History of GI bleeding. Comparison exam is a frontal view obtained as part of an abdominal series 02/13/2019. FINDINGS: The technique utilized in obtaining the radiograph has magnified the cardiac silhouette and accentuated the interstitial markings. The superior mediastinal structures are midline. The cardiac silhouette is unremarkable in size, shape, and position. The diaphragmatic surfaces of the lungs are regular, and the costophrenic angles are clear. The pulmonary benites are clear. The imaged osseous structures are intact. IMPRESSION: There is no acute cardiopulmonary disease. No change from the prior exam. Electronically Signed by Quinton Guerra DO 02/17/2019 12:22 P
[2019-02-17] MEDS ORDERED: EYEDRO5 OU (10:28)
[2019-02-17] MEDS ORDERED: EXCETAB44 PO (10:28)
[2019-02-17] MEDS ORDERED: ELIQ5TAB PO (10:28)
[2019-02-17] MEDS ORDERED: MULTCAP PO (10:28)
[2019-02-17] MEDS ORDERED: MAGN400T2 PO (10:28)
[2019-02-17] MEDS ORDERED: CVS-161 PO (10:28)
[2019-02-17] MEDS ORDERED: D200CAP2 PO (10:28)
[2019-02-17] MEDS ORDERED: NS 500 ML IV ONE (10:30)
[2019-02-17 12:21] VITALS: BP 173/91
--- NOTE | 2019-02-17 13:10 | ECGEPIP ---
[facility] - ED Test Date: 2019-02-17 Pat Name: WALDO ROMO Department: Room: 01[facility] Gender: Female Spinneret Person: : 1935 Requested By: Kitty Cyr Order Number: [id number] Reading MD: Kitty Cyr Measurements Intervals [place] Rate: 83 P: 9 WI: 168 QRS: -10 QRSD: 88 T: 9 QT: 346 QTc: 407 Interpretive Statements SINUS RHYTHM MODERATE VOLTAGE CRITERIA FOR LVH, CONSIDER NORMAL VARIANT LEFTWARD AXIS NONSPECIFIC ST T WAVE CHANGES CW 02/15/[address] T WAVE CHANGES Electronically Signed on 02-17-2019 13:10:01 EST by Kitty Cyr
[2019-02-17] MEDS: NS 1,000 ML IV SCH (13:13)
[2019-02-17] MEDS ORDERED: ACETAMINOPHEN TAB 650MG DOSE (2X325MG) PO PRN (14:15)
[2019-02-17] MEDS: PANTOPRAZOLE 40MG INJ (PROTONIX) (C9113) IV SCH ×2 (15:01→20:02)
--- NOTE | 2019-02-17 15:41 | HPE ---
DATE OF ADMISSION: 02/17/2019 ADMITTING PHYSICIAN: Dr. Jack Arrington ATTENDING PHYSICIAN: Dr. Kwasi Bower/[facility]. REASON FOR ADMISSION: Bright red blood per rectum. HISTORY OF PRESENT ILLNESS: Ms. Scherer is an 83-year-old female with an extensive past medical history who presented to the emergency room (ER) after bright red blood per rectum early this morning. Patient states when she was in the bathroom, while she was not having a bowel movement, she started to experience a burst of blood into the toilet bowel. She denies having any lightheadedness, dizziness at the time of the episode. She is not having any abdominal pain or diarrhea or constipation as well. She states that she was just urinating and all of a sudden she felt blood going down into the toilet bowel. She was unable to quantify exactly how much blood. She just says it was "a lot that filled up the basin". Patient was recently just started on Eliquis 2 days prior on 02/15/2019 by the emergency room. At that time, she had a CT angio of the chest which showed that she had a small pulmonary embolism in the left upper lobe and the right lower lobe. She was started on Eliquis 10 mg twice a day for 10 days and was transitioned to 5 mg twice a day. She states her last medication was yesterday evening and she was tolerating it well but she did not take it this morning for she just woke up. The patient states 1-week prior, she did have some nausea, vomiting and abdominal discomfort. When she was evaluated by the emergency room that time, she had imaging done which was negative and was advised to go to a "low-food diet". She says because of this, she lost about 10 pounds. She denies having any change in appetite though. She denies having any bitter taste in her mouth or any metallic taste. Patient's last colonoscopy was in [address] Scanlon, which was positive for non-bleeding internal hemorrhoids and diverticulosis. In the emergency room, vitals were stable. Laboratory showed a hemoglobin of 11.0 when compared to Tuesday's hemoglobin which was 12.8 and stable. A chest x-ray was done, which was negative. Hospitalists team was then called for admission. PAST MEDICAL HISTORY: The patient is not the best historian so the majority of the history was obtained by reviewing the clinical works. 1. Allergic rhinitis/chronic sinusitis status post surgery with Dr. Ladd in 1997. 2. Hypertension. 3. Chronic major depressive disorder/generalized anxiety disorder (MDD/ALYCIA). 4. Gastroesophageal reflux disease (GERD). 5. History of gastritis. November 2012 esophagogastroduodenoscopy (EGD) shows hypoplastic polyp ? 6. Diarrhea, chronic. 7. Anemia secondary to iron deficiency. 8. History of melanoma excised by Dr. Rodriguez in 1977. 9. Impaired fasting glucose. 10. Osteoporosis. 11. Insomnia. 12. History of facial actinic keratosis (AK). 13. History of lumbar degenerative joint disease. 14. Bilateral supraspinatus tendonitis. 15. Bilateral carpal tunnel syndrome. 16. Vitamin D deficiency. 17. History of gastritis June 2004/history of peptic ulcer disease/GERD. 18. Obstructive sleep apnea. 19. 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 20. Cervical degenerative joint disease (DJD). 21. Right shoulder dislocation. PAST SURGICAL HISTORY: 1. Total hysterectomy in 1984. 2. Left ring/pinky finger amputation 1973. 3. Right total knee replacement in 2007. 4. Tonsillectomy/adenoidectomy 1957. 5. Sinus surgery. 6. Dilation and curettage 1973. 7. Bladder suspension 1993. 8. Cholecystectomy 2003. 9. Carpal tunnel release on the left 2009. 10. Anterior cervical discectomy and fusion (ACDF) 2013. 11. Posterior lumbar decompression and fusion (PLDF) with L2/S1 decompression and L4-S1 fusion in 2014. 12. Trigger finger release surgery 2017. FAMILY HISTORY: Father alcoholic, liver disease . Mother , breast cancer. Siblings: brother at 63, chronic obstructive pulmonary disease (COPD), smoker, lung cancer. Sister at 57 pulmonary embolism. Sister 54, COPD, smoker. SOCIAL HISTORY: Denies tobacco abuse or vaping, IV drug use or alcohol use. ALLERGIES: PENICILLIN, ASPIRIN, ATORVASTATIN. HOME MEDICATIONS: - Eliquis 10 mg by mouth twice a day started on 02/15/2019 - bisoprolol 10 mg by mouth daily - vitamin B12 1000 micrograms by mouth daily - Flexeril 10 mg by mouth as needed - Nexium 40 mg by mouth twice a day - Flonase one spray nasally twice a day as needed for allergies - gabapentin 400 mg by mouth three times a day - magnesium oxide 400 mg by mouth daily - paroxetine 20 mg by mouth nightly - potassium chloride 10 mEq by mouth daily - Crestor 40 mg by mouth nightly - Excedrin one tablet by mouth every 6 hours as needed for headaches. - vitamin D3, two units by mouth daily - [place] two tablets by mouth twice a day - multivitamin one capsule by mouth daily PHYSICAL EXAMINATION: VITAL SIGNS: Temperature 98.1, pulse 95, respiration 20, blood pressure 116/65 (82), pulse ox 98% on room air. GENERAL: This is a very pleasant elderly 83-year-old female laying in the bed, awake, alert and oriented. Speaking in complete sentences. No acute distress. HEENT: Atraumatic, normocephalic. Pupils equal, round and reactive. Moist mucous membranes. No elevation of jugular venous distention (JVD). CARDIOVASCULAR: S1, S2 sounds regular. No audible murmurs, rubs or gallops. RESPIRATORY: Clear to auscult bilaterally. No audible wheezing, rhonchi or rales. ABDOMEN: Positive bowel sounds in all four quadrants. Soft, nontender. RECTAL EXAM: Good positive tone. External hemorrhoids noted with gross blood noted around the rectal area as well. No stool for occult was obtained because of the gross blood that was visualized. SKIN: No Abnormalities noted. EXTREMITIES: No lower extremity edema, clubbing or cyanosis. NEUROLOGICAL: Spontaneously moving all four extremities. Cranial II through XII grossly intact. No gross focal deficit appreciated. Physiological appropriate. LABORATORY DATA: Hematology: WBC 5.8, hemoglobin 11.0, hematocrit 36.4, platelets 258. Chemistries: Point of care glucose 141, sodium 140, potassium 3.8, chloride 108, total CO2 27.0, BUN 20, ionized calcium 5.2, creatinine 0.9, hematocrit 33.0, lactic acid 2.8, total bilirubin 0.4, direct bilirubin less than 0.1, AST 15, ALT 21, alkaline phosphatase 47, total creatinine kinase 83, troponin less than 0.02 total protein 6.5, albumin 3.7, lipase 203. Coagulation PT 18.6, INR 1.58. PTT 34.5. Microbiology: Blood cultures times two pending. Blood bank: Type O positive, screen negative. IMAGING: Chest x-ray negative for any acute processes. ASSESSMENT/PLAN: This is an 83-year-old female with a recent diagnosis of a pulmonary embolism on recently started on Eliquis 10 mg twice a day for the next 10 days who presented to the emergency room for bright red blood per rectum early this morning. PROBLEMS: 1. Bright red blood per rectum: Recently started on anticoagulation. The patient is currently hemodynamically stable and asymptomatic. Rectal exam is negative for any active bleeding source. Dried red blood can be visualized on exam. Hemoglobin and hematocrit is currently stable at 11.0. For right now, we will stop the Eliquis. She was given 2 liters bolus normal saline in the emergency room. Will continue normal saline at 50 mL/hours. Keep her nothing by mouth diet as well. Start Protonix 40 mg IV twice a day. Will repeat hemoglobin and hematocrit in 12 hours. Blood consent should be obtained in the emergency room. We will only transfuse if hemoglobin and hematocrit goes below 8 with active bleeding source or below 7 with no active bleeding source. Gastroenterology was consulted. Dr. Khan will evaluate the patient. Colonoscopy in 2017 shows history of diverticulosis and internal hemorrhoids. For nausea will give 4 mg IV of Zofran. 2. History of migraines: Will hold on her Excedrin because of the aspirin component. Will put on acetaminophen 650 mg every 4 hours as needed as needed for pain and fevers. 3. History of anxiety: Hold home medications because she is starting nothing by mouth. 4. History of hyperlipidemia: Will hold home medication while nothing by mouth. 5. History of generative disc disease: Will hold her gabapentin and hydrocodone due to nothing by mouth status as well. 6. Recent diagnosis of pulmonary embolism in the right lower lobe: Will hold her Eliquis for right now and up to the primary team to consider consulting with hematology if patient needs to be placed on Lovenox in the future which has a lower risk of gastrointestinal (GI) bleed. 7. Deep venous thrombosis (DVT) prophylaxis: Thromboembolic deterrent stockings (TEDS) and sequentials. DISPOSITION: The patient will be admitted for two midnights and at 7:00 pm tonight service will be transferred to [facility]. CODE STATUS: FULL CODE. Pt was seen and examined by me personally. Agree with the above assessment and plan . AZEB WASHINGTON
[2019-02-17] MEDS: [UNRECOGNIZED DRUG - OTHER] PO PRN (18:24)
[2019-02-17] MEDS: ACETAMINOPHEN PO PRN (18:24)
[2019-02-17 19:30] VITALS: BP 123/69
[2019-02-17 19:38] LABS: HEMATOCRIT 32.3 % (36.0-47.0); HEMOGLOBIN 9.5 g/dl (12.0-15.5)
[2019-02-17 22:00] VITALS: BP 118/69
[2019-02-18] VITALS (12 sets, daily range): BP systolic 120–173; BP diastolic 68–97
[2019-02-18] MEDS: ACETAMINOPHEN PO PRN ×5 (01:26→23:06)
[2019-02-18] MEDS: diphenhydrAMINE 25 MG CAP PO PRN ×2 (01:26→20:48)
[2019-02-18] MEDS: [UNRECOGNIZED DRUG - OTHER] PO PRN ×5 (01:26→23:06)
[2019-02-18] MEDS: NS 1,000 ML IV SCH ×2 (01:44→23:00)
[2019-02-18] MEDS: ONDANSETRON 4MG/2ML VIAL (J2405) IV PRN (04:14)
[2019-02-18 06:20] LABS: HEMATOCRIT 27.1 % (36.0-47.0); HEMOGLOBIN 8.4 g/dl (12.0-15.5); MEAN CORPUSCULAR HEMOGLOBIN 32.3 pg (27.0-33.0); MEAN CORPUSCULAR VOLUME 104.2 fl (80.0-96.0); PLATELET COUNT, AUTOMATED 219 10^3/uL (150-450); WHITE BLOOD COUNT 7.8 10^3/uL (4.0-10.0)
[2019-02-18 06:45] LABS: BLOOD UREA NITROGEN 22 MG/DL (7-18); CALCIUM LEVEL 8.4 MG/DL (8.8-10.2); CARBON DIOXIDE LEVEL 25 MEQ/L (21-32); CHLORIDE LEVEL 114 MEQ/L (98-107); GLOMERULAR FILTRATION RATE > 60.0 (>32); GLUCOSE, FASTING 129 MG/DL (70-100); MAGNESIUM LEVEL 1.5 MG/DL (1.8-2.4); POTASSIUM SERUM 4.1 MEQ/L (3.5-5.1); SODIUM LEVEL 144 MEQ/L (136-145)
[2019-02-18 06:47] LABS: INR 1.39; PROTHROMBIN TIME 16.8 SECONDS (11.8-14.0)
[2019-02-18] MEDS: PANTOPRAZOLE 40MG INJ (PROTONIX) (C9113) IV SCH ×2 (07:43→20:46)
[2019-02-18] MEDS ORDERED: MOM 30ML SUSPENSION UDC PO ONE (11:00)
--- NOTE | 2019-02-18 11:16 | IPN ---
DATE: 02/18/2019 Eva is seen on [address] [place] [address]. She was admitted with perfuse lower gastrointestinal bleeding, which is continuing. She had frankly bloody bowel movement last night and again this morning. Her hemoglobin has dropped from 14 at baseline one week ago down to 8.4. She is being transfused today. She was recently diagnosed with two subsegmental pulmonary emboli and was on Eliquis for this when she developed her bleeding. Case has been discussed with Dr. Khan and extensively with Dr. Dorantes today. PHYSICAL EXAMINATION: 120/68, pulse 100, respiratory rate 18, 97% oxygen saturation. She is comfortable, no distress. Looks pale. HEENT: Unremarkable. LUNGS: Clear. HEART: Regular rhythm. 1/6 systolic ejection murmur. ABDOMEN: Soft, nontender. No masses. EXTREMITIES: Trace peripheral edema. LABORATORIES: Hemoglobin was 11 yesterday morning and it is 8.4 today, her baseline is 14. White count is 7.8, platelets 219. Sodium 144, potassium 4.1, BUN 22, creatinine 0.8, glucose 129, magnesium 1.5. IMPRESSION: 1. Gastrointestinal bleeding, presumptively lower gastrointestinal bleed. Case discussed with Dr. Khan. He plans colonoscopy. Her anticoagulation is on hold. 2. Acute blood loss anemia. She will be transfused 2 units of packed red blood cells. Concerned about the rate in which she is dropping her hemoglobin. We need to keep ahead of this. Followup CBC has been ordered. 3. Recent pulmonary embolism. Had an extensive discussion with Dr. Dorantes (appreciate her input, she is not working this weekend and is actually in a whole different time zone so I appreciate waking her up for her input on this). We discussed that the patient has a recent pulmonary embolism and now cannot be anticoagulated. No ultrasound of the legs was done when she was diagnosed with the pulmonary embolism. She recommends that we get a stat ultrasound of both legs, including calf veins. If there is evidence of a DVT, then the patient should have an IVC filter. In the absence of lower extremity DVTs then an IVC filter should still be considered. If upon endoscopy there is not a remediable lesion found -- in other words, should we not have something correctable and she is at risk of persisting bleeding, then would advise an IVC filter, as the patient would probably not tolerate prolonged anticoagulation with increased risk of rebleeding. 4. Hypertensive heart disease. Her blood pressure is adequately controlled. Her medications are on hold in face of the gastrointestinal bleeding. She takes bisoprolol 10 mg daily as an outpatient. 5. History of depression. She takes paroxetine 20 mg daily at bedtime. She is at risk of selective serotonin reuptake inhibitors (SSRIs) withdrawal syndrome. SSRIs are associated with increased risk of GI bleeding and so I am going to hold this as I think that the risk of the bleeding is higher than the risk of the SSRI withdrawal. 6. Hyperlipidemia. We will restart her rosuvastatin once she is taking orally again. I think that it is safe to hold this short term as well.
--- NOTE | 2019-02-18 11:39 | REP ---
DEEP VEIN ULTRASOUND OF THE BILATERAL THIGHS: TECHNIQUE: Multiple ultrasonographic images of the deep venous structures of the thigh were obtained from the common femoral vein to the popliteal vein along with Doppler interrogation and color flow Doppler images. FINDINGS: There is no abnormal echogenic material seen within any of the visualized deep venous structures that would suggest acute thrombosis. Coaptation is unremarkable throughout. Doppler interrogation shows an expected response to respiratory variability and augmentation. The color flow images show what appears to be a normal vascular pattern throughout. IMPRESSION: There is no ultrasonographic evidence of deep venous thrombosis involving any of the visualized deep venous structures of the bilateral thighs, as described above. A calf deep venous thrombosis cannot be ruled out by ultrasound. The calf veins were not adequately visualized Electronically Signed by Quinton Guerra DO 02/18/2019 11:44 A
[2019-02-18] MEDS ORDERED: POLYETHYLENE GLYCOL (MIRALAX) 238GM BOTTLE PO ONE (16:00)
[2019-02-18] MEDS ORDERED: MIRALAX *UNIT DOSE* 17GM PACKET PO ONE (16:00)
[2019-02-18] MEDS: NORCO, ANEXSIA 5/325MG TABLET (HYDROcodone/ACETAMINOPHEN) PO PRN (16:27)
[2019-02-19] MEDS: NS 1,000 ML IV SCH (02:54)
[2019-02-19] MEDS ORDERED: MIRALAX *UNIT DOSE* 17GM PACKET PO ONE (05:00)
[2019-02-19] MEDS ORDERED: POLYETHYLENE GLYCOL (MIRALAX) 238GM BOTTLE PO ONE (05:00)
[2019-02-19 06:00] VITALS: BP 166/83
[2019-02-19] MEDS: NORCO, ANEXSIA 5/325MG TABLET (HYDROcodone/ACETAMINOPHEN) PO PRN ×2 (07:44→14:19)
[2019-02-19] MEDS: [UNRECOGNIZED DRUG - OTHER] PO PRN ×4 (07:45→22:02)
[2019-02-19] MEDS: ACETAMINOPHEN PO PRN ×4 (07:45→22:02)
[2019-02-19] MEDS: PANTOPRAZOLE 40MG INJ (PROTONIX) (C9113) IV SCH ×2 (07:45→22:02)
[2019-02-19 07:57] LABS: BLOOD UREA NITROGEN 13 MG/DL (7-18); CALCIUM LEVEL 9.4 MG/DL (8.8-10.2); CARBON DIOXIDE LEVEL 23 MEQ/L (21-32); CHLORIDE LEVEL 110 MEQ/L (98-107); CREATININE FOR GFR 0.72 MG/DL (0.55-1.30); GLOMERULAR FILTRATION RATE > 60.0 (>32); GLUCOSE, FASTING 111 MG/DL (70-100); MAGNESIUM LEVEL 1.8 MG/DL (1.8-2.4); POTASSIUM SERUM 3.5 MEQ/L (3.5-5.1); SODIUM LEVEL 141 MEQ/L (136-145)
[2019-02-19] MEDS: GABAPENTIN 400 MG CAP PO SCH ×3 (09:00→22:03)
[2019-02-19 09:50] LABS: HEMATOCRIT 32.1 % (36.0-47.0); HEMOGLOBIN 10.5 g/dl (12.0-15.5); MEAN CORPUSCULAR HEMOGLOBIN 31.4 pg (27.0-33.0); MEAN CORPUSCULAR HGB CONC 32.7 g/dl (32.0-36.5); MEAN CORPUSCULAR VOLUME 96.1 fl (80.0-96.0); PLATELET COUNT, AUTOMATED 202 10^3/uL (150-450); RED BLOOD COUNT 3.34 10^6/uL (4.00-5.40); WHITE BLOOD COUNT 8.2 10^3/uL (4.0-10.0)
[2019-02-19] MEDS: BISOPROLOL FUMARATE 10 MG TAB PO SCH (12:19)
--- NOTE | 2019-02-19 12:19 | IPNPDOC ---
Subjective Date Seen The patient was seen on 02/19/19. Subjective Chief Complaint/HPI GIB Events since last encounter Planned colonoscopy today. Constitutional: Denies: Chills, Fever, Night Sweats Skin: Denies: Rash, Lesions, Breakdown Pulmonary: Denies: Dyspnea, Cough Cardiovascular: Denies: Chest Pain, Palpitations, Orthopnea, Paroxysmal Noc. Dyspnea, Lt Headedness Gastrointestinal: Denies: Nausea, Vomiting, Abdominal Pain, Diarrhea, Constipation Neurological: Reports: Other Symptoms (Headache) Objective Physical Examination General Exam: Positive: Alert, No Acute Distress Chest Exam: Positive: Clear to auscultation, Normal air movement Heart Exam: Positive: Rate Normal, Regular Rhythm, Normal S1, Normal S2; Negative: Murmurs, Rubs Abdomen Exam: Positive: Normal bowel sounds, Soft; Negative: Tenderness, Hepatospenomegaly Skin Exam: Positive: Nl turgor and temperature; Negative: Rash, Breakdown Psych Exam: Positive: Mental status NL, Mood NL, Oriented x 3 Assessment /Plan Problems (1) GI bleeding Status: Acute Problem Text: 02/19 10.5 02/18 8.4; therefore, 2u baseline hgb 12s 04/2012 [id number] ho PUD, recurrent C diff colitis 02/19 EGD normal 02/19 colon: - A single (solitary) ulcer in the mid sigmoid colon. Biopsied- eval for acute vs chronic. - One 10 mm polyp in the ascending colon, removed with a cold snare. Resected and retrieved. Clips were placed. - Moderate to severe diverticulosis in the sigmoid colon, in the descending colon and in the transverse colon. - Moderate Internal hemorrhoids. - The examination was otherwise normal on direct and retroflexion views. (--no active bleeding, no very recent bleeding--colonic fluid is clear/yellow. Source of blood loss was likely related to the small colonic erosion/ulceration or from diverticular bleeding). Recommendation: - Resume regular diet. - Await pathology results. (2) Pulmonary embolism Status: Acute Problem Text: 02/16/19 CTA chest: 1. Small pulmonary emboli in the left upper lobe and right lower lobe. 2. No signs of right heart strain. 02/18/19 -BLE DVT US apix held on admission 2 GIB consider IVF filter if unable to anti-coagulate pending results of colonoscopy. (3) Osteoporosis Status: Chronic (4) GERD (gastroesophageal reflux disease) Status: Chronic Problem Text: Stable on HD panto 40 IV BID Hd eso 40 (5) Hypertension Status: Chronic Plan/VTE VTE Prophylaxis Ordered?: No VTE Exclusion Pharmacological: Active Bleeding VS, I&O, 24H, Fishbone Vital Signs/I&O Vital Signs Date Time Temp Pulse Resp B/P (MAP) Pulse Ox O2 Delivery O2 Flow Rate FiO2 02/19/19 08:14 18 Room Air 02/19/19 06:00 97.5 106 166/83 (110) 99 I&O- Last 24 Hours up to 6 AM 02/19/19 05:59 Intake Total 2440 ml Output Total 250 ml Balance 2190 ml Laboratory Data 24H LABS Laboratory Tests 2 02/19/19 05:38: Anion Gap 8, Glomerular Filtration Rate > 60.0, Calcium Level 9.4, Magnesium Lev el 1.8 02/19/19 09:36: Nucleated Red Blood Cells % (auto) 0.0 CBC/BMP Laboratory Tests 02/19/19 05:38 02/19/19 09:36 Microbiology Microbiology 02/17/19 Blood Culture - Preliminary, Resulted No Growth after 48 hours. All Specime... 02/17/19 Blood Culture - Preliminary, Resulted No Growth after 48 hours. All Specime... Jackie Vicente Feb 19, 2019 12:19 Jorge Fischer M.D. Feb 19, 2019 17:22
[2019-02-19 13:04] VITALS: BP 157/81
[2019-02-19] MEDS ORDERED: PROPOFOL 200 MG/20 ML VIAL As Ordered ONE (15:31)
[2019-02-19] MEDS ORDERED: fentaNYL 100 MCG/2 ML INJECTION (J3010) As Ordered ONE (15:32)
[2019-02-19] MEDS ORDERED: LIDOCAINE 2% INJ 100 MG/5 ML SDV (FOR ANES.) As Ordered ONE (15:32)
--- NOTE | 2019-02-19 17:20 | ROOR ---
Patient Name: Eva Scherer Procedure Date: 02/19/2019 4:23 PM Date of : 1935 Age: 83 Room: Main OR Gender: Female Note Status: Finalized Procedure: Upper GI endoscopy Indications: Acute post hemorrhagic anemia, Increased BUN Providers: Gonzalo MUKHERJEE MD Referring MD: 2. Inpatient 2. Inpatient, Jorge Fischer MD Requesting Provider: Medicines: Monitored Anesthesia Care Complications: No immediate complications. Procedure: Pre-Anesthesia Assessment: - The heart rate, respiratory rate, oxygen saturations, blood pressure, adequacy of pulmonary ventilation, and response to care were monitored throughout the procedure. The Endoscope was introduced through the mouth, and advanced to the second part of duodenum. The upper GI endoscopy was accomplished without difficulty. The patient tolerated the procedure well. Findings: The esophagus was normal with a small venous bleb mid esophagus. The stomach was normal. The examined duodenum was normal. Impression: - Normal esophagus, with a single small venous bleb in mid esopahgus (dubious significance). - Normal stomach. - Normal examined duodenum. - No specimens collected. Recommendation: - Perform a colonoscopy. Gonzalo Mukherjee MD Gonzalo MUKHERJEE MD 02/19/2019 5:20:07 PM Electronically signed by Gonzalo MUKHERJEE MD Number of Addenda: 0 Note Initiated On: 02/19/2019 4:23 PM Estimated Blood Loss: Estimated blood loss: none.
--- NOTE | 2019-02-19 17:36 | ROOR ---
Patient Name: Eva Scherer Procedure Date: 02/19/2019 4:23 PM Date of : 1935 Age: 83 Room: Main OR Gender: Female Note Status: Finalized Procedure: Colonoscopy Indications: Hematochezia, Acute post hemorrhagic anemia Providers: Gonzalo MUKHERJEE MD Referring MD: 2. Inpatient 2. Inpatient, Jorge Fischer MD Requesting Provider: Medicines: Monitored Anesthesia Care Complications: No immediate complications. Procedure: Pre-Anesthesia Assessment: - The heart rate, respiratory rate, oxygen saturations, blood pressure, adequacy of pulmonary ventilation, and response to care were monitored throughout the procedure. The Colonoscope was introduced through the anus and advanced to 10 cm into the ileum. The colonoscopy was performed without difficulty. The patient tolerated the procedure well. The quality of the bowel preparation was good. Findings: The perianal and digital rectal examinations were normal. A single (solitary) eight mm ulcer was found in the mid sigmoid colon. No bleeding was present. No stigmata of recent bleeding were seen. Biopsies were taken with a cold forceps for histology. A 10 mm polyp was found in the ascending colon. The polyp was sessile. The polyp was removed with a cold snare. Resection and retrieval were complete. To prevent bleeding after the polypectomy, two hemostatic clips were successfully placed (MR conditional). There was no bleeding at the end of the procedure. Multiple small and large-mouthed diverticula were found in the sigmoid colon, descending colon and transverse colon. Internal hemorrhoids were found during retroflexion. The hemorrhoids were moderate. The exam was otherwise without abnormality on direct and retroflexion views. Impression: - A single (solitary) ulcer in the mid sigmoid colon. Biopsied- eval for acute vs chronic. - One 10 mm polyp in the ascending colon, removed with a cold snare. Resected and retrieved. Clips were placed. - Moderate to severe diverticulosis in the sigmoid colon, in the descending colon and in the transverse colon. - Moderate Internal hemorrhoids. - The examination was otherwise normal on direct and retroflexion views. (--no active bleeding, no very recent bleeding--colonic fluid is clear/yellow. Source of blood loss was likely related to the small colonic erosion/ulceration or from diverticular bleeding). Recommendation: - Resume regular diet. - Await pathology results. Gonzalo Mukherjee MD Gonzalo MUKHERJEE MD 02/19/2019 5:35:51 PM Electronically signed by Gonzalo MUKHERJEE MD Number of Addenda: 0 Note Initiated On: 02/19/2019 4:23 PM Estimated Blood Loss: Estimated blood loss: none.
[2019-02-19] MEDS ORDERED: ONDANSETRON 4MG/2ML VIAL (J2405) IV PRN (17:45)
[2019-02-19] MEDS ORDERED: LR 1,000 ML IV SCH (17:45)
[2019-02-19 18:48] VITALS: BP 168/90
[2019-02-19] MEDS: ONDANSETRON 4MG/2ML VIAL (J2405) IV PRN (22:02)
[2019-02-19] MEDS: ROSUVASTATIN 10 MG TAB (CRESTOR) PO SCH (22:02)
[2019-02-19] MEDS: PARoxetine 20 MG TAB PO SCH (22:03)
[2019-02-19] MEDS: diphenhydrAMINE 25 MG CAP PO PRN (23:17)
[2019-02-20 06:11] VITALS: BP 139/86
[2019-02-20 06:22] LABS: HEMATOCRIT 32.1 % (36.0-47.0); MEAN CORPUSCULAR HEMOGLOBIN 31.3 pg (27.0-33.0); MEAN CORPUSCULAR HGB CONC 31.2 g/dl (32.0-36.5); MEAN CORPUSCULAR VOLUME 100.3 fl (80.0-96.0); PLATELET COUNT, AUTOMATED 227 10^3/uL (150-450); WHITE BLOOD COUNT 6.2 10^3/uL (4.0-10.0)
[2019-02-20 06:47] LABS: BLOOD UREA NITROGEN 7 MG/DL (7-18); CALCIUM LEVEL 8.8 MG/DL (8.8-10.2); CARBON DIOXIDE LEVEL 25 MEQ/L (21-32); CHLORIDE LEVEL 111 MEQ/L (98-107); CREATININE FOR GFR 0.71 MG/DL (0.55-1.30); GLOMERULAR FILTRATION RATE > 60.0 (>32); GLUCOSE, FASTING 110 MG/DL (70-100); MAGNESIUM LEVEL 1.6 MG/DL (1.8-2.4); POTASSIUM SERUM 3.3 MEQ/L (3.5-5.1); SODIUM LEVEL 141 MEQ/L (136-145)
[2019-02-20] MEDS ORDERED: MAG SULF 1GM/100ML (MAG RUN) 1 GM in IV 1 EA IV ONE (07:30)
[2019-02-20] MEDS: PANTOPRAZOLE 40MG INJ (PROTONIX) (C9113) IV SCH ×2 (08:34→20:59)
[2019-02-20] MEDS: BISOPROLOL FUMARATE 10 MG TAB PO SCH (08:34)
[2019-02-20] MEDS: NORCO, ANEXSIA 5/325MG TABLET (HYDROcodone/ACETAMINOPHEN) PO PRN ×2 (08:35→22:45)
[2019-02-20] MEDS: GABAPENTIN 400 MG CAP PO SCH ×3 (08:35→20:58)
[2019-02-20] MEDS: [UNRECOGNIZED DRUG - OTHER] PO PRN ×2 (08:41→20:59)
[2019-02-20] MEDS: ACETAMINOPHEN PO PRN ×2 (08:41→20:59)
--- NOTE | 2019-02-20 11:22 | IPNPDOC ---
Subjective Date Seen The patient was seen on 02/20/19. Subjective Chief Complaint/HPI GIB Events since last encounter s/p colonoscopy: See full report. Recommended 7 day old on DOAc then resume. Patient's daughter insists on pelvic exam to r/o vaginal bleeding. Also requesting pelvic US. patient is s/p [facility] BSO in 1984 Constitutional: Denies: Chills, Fever, Night Sweats Cardiovascular: Denies: Chest Pain, Palpitations, Orthopnea, Paroxysmal Noc. Dyspnea, Lt Headedness Gastrointestinal: Denies: Nausea, Vomiting, Abdominal Pain, Diarrhea, Co nstipation Genitourinary: Denies: Dysuria, Frequency, Incontinence, Retention Objective Physical Examination General Exam: Positive: Alert, No Acute Distress Chest Exam: Positive: Clear to auscultation, Normal air movement Heart Exam: Positive: Rate Normal, Regular Rhythm, Normal S1, Normal S2; Negative: Murmurs, Rubs Abdomen Exam: Positive: Normal bowel sounds, Soft; Negative: Tenderness, Hepatospenomegaly Female Exam: Positive: Nl Ext Genitalia (no plapable masses on pelvic exam no visible bleeding. ); Negative: Discharge, Odor, Tenderness Skin Exam: Positive: Nl turgor and temperature; Negative: Rash, Breakdown Psych Exam: Positive: Mental status NL, Mood NL, Oriented x 3 Assessment /Plan Problems (1) GI bleeding Status: Acute Problem Text: 02/20/19: most likely diverticular bleed. HOLD eliquis and f/u with PCP prior to resuming anti-coag. patient is s/p [facility] BS in 1984. There is no indication for pelvic US. reveiwed with patient and her daughter. Hypomag today. will replace and repeat BMP this afternoon. anticipate DC home tomorrow. 02/19 10.5 02/18 8.4; therefore, 2u baseline hgb 12s 04/2012 [id number] ho PUD, recurrent C diff colitis 02/19 EGD normal 02/19 colon: - A single (solitary) ulcer in the mid sigmoid colon. Biopsied- eval for acute vs chronic. - One 10 mm polyp in the ascending colon, removed with a cold snare. Resected and retrieved. Clips were placed. - Moderate to severe diverticulosis in the sigmoid colon, in the descending colon and in the transverse colon. - Moderate Internal hemorrhoids. - The examination was otherwise normal on direct and retroflexion views. (--no active bleeding, no very recent bleeding--colonic fluid is clear/yellow. Source of blood loss was likely related to the small colonic erosion/ulceration or from diverticular bleeding). Recommendation: - Resume regular diet. - Await pathology results. (2) Pulmonary embolism Status: Acute Problem Text: 02/16/19 CTA chest: 1. Small pulmonary emboli in the left upper lobe and right lower lobe. 2. No signs of right heart strain. 02/18/19 -BLE DVT US apix held on admission 2 GIB consider IVF filter if unable to anti-coagulate pending results of colonoscopy. (3) Osteoporosis Status: Chronic (4) GERD (gastroesophageal reflux disease) Status: Chronic Problem Text: Stable on HD panto 40 IV BID Hd eso 40 (5) Hypertension Status: Chronic Plan/VTE VTE Prophylaxis Ordered?: No VTE Exclusion Pharmacological: Active Bleeding VS, I&O, 24H, Fishbone Vital Signs/I&O Vital Signs Date Time Temp Pulse Resp B/P (MAP) Pulse Ox O2 Delivery O2 Flow Rate FiO2 02/20/19 09:05 18 Room Air 02/20/19 08:34 72 139/86 02/20/19 06:11 97.9 94 I&O- Last 24 Hours up to 6 AM 02/20/19 06:00 Intake Total 500 ml Output Total 1275 ml Balance -775 ml Laboratory Data 24H LABS Laboratory Tests 2 02/20/19 05:59: Nucleated Red Blood Cells % (auto) 0.0, Anion Gap 5L, Glomerular Filtration Rate > 60.0, Calcium Level 8.8, Magnesium Level 1.6L CBC/BMP Laboratory Tests 02/20/19 05:59 Microbiology Microbiology 02/17/19 Blood Culture - Preliminary, Resulted No Growth after 72 hours. All specime... 02/17/19 Blood Culture - Preliminary, Resulted No Growth after 72 hours. All specime... Jackie Vicente LUMBER CHECKER Feb 20, 2019 11:22
[2019-02-20 13:46] LABS: BLOOD UREA NITROGEN 9 MG/DL (7-18); CALCIUM LEVEL 8.9 MG/DL (8.8-10.2); CARBON DIOXIDE LEVEL 23 MEQ/L (21-32); CHLORIDE LEVEL 113 MEQ/L (98-107); CREATININE FOR GFR 0.88 MG/DL (0.55-1.30); GLOMERULAR FILTRATION RATE > 60.0 (>32); GLUCOSE, FASTING 131 MG/DL (70-100); POTASSIUM SERUM 3.5 MEQ/L (3.5-5.1); SODIUM LEVEL 144 MEQ/L (136-145)
[2019-02-20 14:00] VITALS: BP 135/67
[2019-02-20] MEDS: NS 1,000 ML IV SCH (16:50)
[2019-02-20] MEDS: ROSUVASTATIN 10 MG TAB (CRESTOR) PO SCH (20:58)
[2019-02-20] MEDS: PARoxetine 20 MG TAB PO SCH (20:58)
[2019-02-20 22:29] VITALS: BP 147/80
[2019-02-20] MEDS: diphenhydrAMINE 25 MG CAP PO PRN (22:45)
[2019-02-21 06:00] VITALS: BP 149/68
[2019-02-21 06:03] LABS: HEMATOCRIT 31.4 % (36.0-47.0); HEMOGLOBIN 9.8 g/dl (12.0-15.5); MEAN CORPUSCULAR HEMOGLOBIN 31.1 pg (27.0-33.0); MEAN CORPUSCULAR HGB CONC 31.2 g/dl (32.0-36.5); MEAN CORPUSCULAR VOLUME 99.7 fl (80.0-96.0); PLATELET COUNT, AUTOMATED 219 10^3/uL (150-450); RED BLOOD COUNT 3.15 10^6/uL (4.00-5.40); WHITE BLOOD COUNT 7.2 10^3/uL (4.0-10.0)
[2019-02-21 06:24] LABS: BLOOD UREA NITROGEN 10 MG/DL (7-18); CALCIUM LEVEL 8.6 MG/DL (8.8-10.2); CARBON DIOXIDE LEVEL 26 MEQ/L (21-32); CHLORIDE LEVEL 112 MEQ/L (98-107); CREATININE FOR GFR 0.71 MG/DL (0.55-1.30); GLOMERULAR FILTRATION RATE > 60.0 (>32); GLUCOSE, FASTING 103 MG/DL (70-100); MAGNESIUM LEVEL 1.7 MG/DL (1.8-2.4); POTASSIUM SERUM 3.2 MEQ/L (3.5-5.1); SODIUM LEVEL 144 MEQ/L (136-145)
[2019-02-21 08:49] VITALS: BP 149/68
[2019-02-21] MEDS: BISOPROLOL FUMARATE 10 MG TAB PO SCH (08:49)
[2019-02-21] MEDS: PANTOPRAZOLE 40MG INJ (PROTONIX) (C9113) IV SCH (08:49)
[2019-02-21] MEDS: GABAPENTIN 400 MG CAP PO SCH (08:49)
[2019-02-21] MEDS: ACETAMINOPHEN PO PRN (08:50)
[2019-02-21] MEDS: [UNRECOGNIZED DRUG - OTHER] PO PRN (08:50)
[2019-02-21] MEDS ORDERED: POTASSIUM CHLORIDE 10 MEQ SR TABLET PO ONE (09:00)
[2019-02-21] MEDS: NS 1,000 ML IV SCH (11:00)
[2019-02-21] MEDS ORDERED: HYDR-4571 PO (11:34)
[2019-02-21] MEDS ORDERED: BISO10TA13 PO (11:34)
[2019-02-21] MEDS ORDERED: Patient Own Medication PO (11:34)
[2019-02-21] MEDS ORDERED: CRES10TA PO (11:34)
[2019-02-21] MEDS ORDERED: GABA-845 PO (11:34)
[2019-02-21] MEDS ORDERED: PANT20TA2 PO (11:34)
[2019-02-21] MEDS ORDERED: PARO20TA3 PO (11:34)
[2019-02-21] MEDS ORDERED: DIPH25CA32 PO (11:34)
--- NOTE | 2019-02-22 15:46 | DSES ---
DATE OF ADMISSION: 02/17/2019 DATE OF DISCHARGE: 02/21/2019 PRIMARY CARE PHYSICIAN: Dr. Jorge Fischer HISTORY OF PRESENT ILLNESS: An 83-year-old female with an extensive past medical history presented to the emergency department (ED) for bright red blood per rectum. Patient had been treated 2 days prior to her presentation for a pulmonary embolism and was placed on Eliquis 10 mg twice a day for 10 days and then transitioned to 5 mg twice a day. Patient's anticoagulation was subsequently held, and patient was admitted for further evaluation. HOSPITAL COURSE: Patient is status post gastroenterology consult with Dr. Gonzalo Khan who performed colonoscopy on 02/19/2019. Did find some type of small mucosal ulceration along with a questionable diverticular bleed. It was recommended that patient stop her Eliquis for 7 days and then proceed with anticoagulation per primary care physician (PCP) recommendations. Throughout hospitalization, patient has tolerated physical exertion well. She did receive 2 units of packed red blood cells, and patient's hemoglobin has remained stable since her transfusion. Patient and her family are insistent on multiple testing while she is an inpatient. Most recently they are requesting imaging of her abdomen and pelvis as well as an MRI of her brain for chronic complaints, and these were deferred to patient discussing her imaging with her primary care provider. On physical exam today, vital signs are stable. She is afebrile. Oxygen saturation is 90-95% on room air. HEENT: Neck is supple without lymphadenopathy or jugular venous distention (JVD). CARDIOVASCULAR: Heart rate and rhythm are regular. PULMONARY: Lungs are clear to auscultation bilaterally. ABDOMEN: Soft and nontender. Bilateral lower extremities without any edema. NEUROLOGIC: Patient is alert and oriented times three. PSYCHIATRIC: Affect is appropriate. Conversation is congruent. ASSESSMENT/DISCHARGE DIAGNOSES: 1. Gastrointestinal (GI) bleed. 2. Pulmonary embolism. 3. History of migraines, for which patient takes significant amount of Excedrin at home and was advised she is most likely experiencing rebound headaches and can defer her MRI of her brain to her PCP. 4. Anxiety. 5. Hyperlipidemia. 6. Degenerative disc disease. PLAN: Patient will be discharged t home. Diet is as tolerated. Activity is as tolerated. She will followup with PCP within the next 5-7 days. She will have home care within the home. MEDICATIONS: - bisoprolol fumarate 10 mg by mouth daily - Benadryl 25 mg by mouth at bedtime - gabapentin 400 mg by mouth three times a day - hydrocodone with acetaminophen one by mouth every 6 hours as needed for pain - pantoprazole sodium 20 mg tablet two by mouth daily. She was not given 40 mg tablets due to insurance formulary - paroxetine 20 mg by mouth at bedtime - rosuvastatin sodium 40 mg by mouth at bedtime Patient is discharged in stable and satisfactory condition at time of discharge.
== END 2019-02-21 13:45 | disposition home health service (06) | DRG 377 ==
LOC: EDBD 09:09 → M ED 09:09 → M ED INP 10:05 → ENRESERV 10:58 → M MS5PR 12:14
PROVIDERS: ADMIT Internal Medicine; ATTEND Family Medicine
PROC: 30233N1 Transfusion of Nonautologous Red Blood Cells into Peripheral Vein, Percutaneous Approach (ICD-10-PCS; 2019-02-18)
PROC: 0DBN8ZX Excision of Sigmoid Colon, Via Natural or Artificial Opening Endoscopic, Diagnostic (ICD-10-PCS; 2019-02-19)
PROC: 0DBK8ZX Excision of Ascending Colon, Via Natural or Artificial Opening Endoscopic, Diagnostic (ICD-10-PCS; 2019-02-19)
PROC: 0W3P8ZZ Control Bleeding in Gastrointestinal Tract, Via Natural or Artificial Opening Endoscopic (ICD-10-PCS; 2019-02-19)
PROC: 0DJ08ZZ Inspection of Upper Intestinal Tract, Via Natural or Artificial Opening Endoscopic (ICD-10-PCS; principal; 2019-02-19 16:00)
DX: K57.31 Diverticulosis of large intestine without perforation or abscess with bleeding (principal); I26.99 Other pulmonary embolism without acute cor pulmonale; D62 Acute posthemorrhagic anemia; K63.3 Ulcer of intestine; I11.9 Hypertensive heart disease without heart failure; F32.9 Major depressive disorder, single episode, unspecified; F41.1 Generalized anxiety disorder; K21.9 Gastro-esophageal reflux disease without esophagitis; K52.9 Noninfective gastroenteritis and colitis, unspecified; D50.9 Iron deficiency anemia, unspecified; R73.01 Impaired fasting glucose; M81.0 Age-related osteoporosis without current pathological fracture; G47.00 Insomnia, unspecified; D12.2 Benign neoplasm of ascending colon; G43.909 Migraine, unspecified, not intractable, without status migrainosus; L57.0 Actinic keratosis; E78.5 Hyperlipidemia, unspecified; K64.8 Other hemorrhoids; M51.36 Other intervertebral disc degeneration, lumbar region; G47.33 Obstructive sleep apnea (adult) (pediatric); M50.30 Other cervical disc degeneration, unspecified cervical region; F03.90 Unspecified dementia, unspecified severity, without behavioral disturbance, psychotic disturbance, mood disturbance, and anxiety; E83.42 Hypomagnesemia; R07.9 Chest pain, unspecified; Z85.828 Personal history of other malignant neoplasm of skin; Z96.651 Presence of right artificial knee joint; Z89.022 Acquired absence of left finger(s); Z90.49 Acquired absence of other specified parts of digestive tract; Z85.820 Personal history of malignant melanoma of skin; Z98.1 Arthrodesis status; Z79.01 Long term (current) use of anticoagulants; Z79.891 Long term (current) use of opiate analgesic; Z79.899 Other long term (current) drug therapy; Z88.0 Allergy status to penicillin; Z88.6 Allergy status to analgesic agent; Z88.8 Allergy status to other drugs, medicaments and biological substances; Z86.73 Personal history of transient ischemic attack (TIA), and cerebral infarction without residual deficits

== ENCOUNTER 2019-02-23 14:43 | Inpatient (IN) | payer MEDICARE ==
[~2019-02-23] VITALS: Ht 154.9 cm; Wt 74.8 kg
[~2019-02-23 14:43] MED LIST changes: +BISO10TA13 PO; +CRES10TA PO; +CVS-161 PO; +D200CAP2 PO; +DIPH25CA32 PO; +EXCETAB44 PO; +EYEDRO5 OU; +HYDR-4571 PO; +MAGN400T2 PO; +MULTCAP PO; +PANT20TA2 PO; +PREVNAR 13 VACCINE SYRINGE (CPT CODE:90670) IM ONE; +Patient Own Medication PO
[2019-02-23] MEDS ORDERED: IPRATROPIUM 0.5MG/ALBUTEROL 2.5MG INH SOL UD 3ML (DUONEB)(J7620) NEB ONE (15:45)
--- NOTE | 2019-02-23 16:13 | REP ---
Clinical: Cough and dyspnea. Comparison: 02/17/2019. Findings: Mediastinum and cardiac silhouette are grossly normal. Lung benites are unremarkable. No focal consolidation, effusion, or pneumothorax. Left axillary node dissection again noted. Skeletal structures demonstrate degenerative changes. Impression: No acute consolidation or effusion. Electronically Signed by Izaiah Garrido MD 02/23/2019 04:05 P
--- NOTE | 2019-02-23 16:33 | ECGEPIP ---
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
[2019-02-23 16:52] LABS: BASO % 0.4 % (0.0-1.0); EOS # 0.3 10^3/uL (0.0-0.5); HEMATOCRIT 32.9 % (36.0-47.0); HEMOGLOBIN 10.4 g/dl (12.0-15.5); LYMPH % 19.9 % (24.0-44.0); MEAN CORPUSCULAR HGB CONC 31.6 g/dl (32.0-36.5); MEAN CORPUSCULAR VOLUME 101.2 fl (80.0-96.0); MONO # 0.9 10^3/uL (0.0-0.8); MONO % 8.8 % (0.0-5.0); NEUTROPHILS # 6.8 10^3/uL (1.5-8.5); NEUTROPHILS % 67.5 % (36.0-66.0); PLATELET COUNT, AUTOMATED 278 10^3/uL (150-450); RED BLOOD COUNT 3.25 10^6/uL (4.00-5.40); WHITE BLOOD COUNT 10.1 10^3/uL (4.0-10.0)
[2019-02-23 17:03] LABS: INR 1.02; PROTHROMBIN TIME 13.1 SECONDS (11.8-14.0)
[2019-02-23 17:13] LABS: INFLUENZA A AMPLIFICATION NEGATIVE (NEGATIVE); INFLUENZA B AMPLIFICATION NEGATIVE (NEGATIVE)
[2019-02-23 17:21] LABS: ALT/SGPT 20 U/L (12-78); BILIRUBIN,DIRECT < 0.1 MG/DL (0.0-0.2); BILIRUBIN,TOTAL 0.4 MG/DL (0.2-1.0); BLOOD UREA NITROGEN 10 MG/DL (7-18); CALCIUM LEVEL 9.2 MG/DL (8.8-10.2); CARBON DIOXIDE LEVEL 31 MEQ/L (21-32); CHLORIDE LEVEL 106 MEQ/L (98-107); CK-MB VALUE MASS 4.6 NG/ML (<3.6); CPK CREATINE PHOSPHOKINASE 406 U/L (26-192); CREATININE FOR GFR 0.73 MG/DL (0.55-1.30); GLOMERULAR FILTRATION RATE > 60.0 (>32); GLUCOSE, FASTING 106 MG/DL (70-100); MB/CK RELATIVE INDEX 1.13 (< OR =4); NT-PRO BNP 415 PG/ML (<450); POTASSIUM SERUM 4.5 MEQ/L (3.5-5.1); SODIUM LEVEL 140 MEQ/L (136-145); TOTAL PROTEIN 5.7 GM/DL (6.4-8.2); TROPONIN I < 0.02 NG/ML (< 0.10)
[2019-02-23] MEDS ORDERED: ISOVUE-370 76% 100ML VIAL (Q9967) As Ordered ONE (17:55)
--- NOTE | 2019-02-23 19:19 | REPVR ---
PROCEDURE INFORMATION: Exam: CT Angiography Chest With Contrast Exam date and time: 02/23/2019 6:47 PM Age: 83 years old Clinical history: Other: Increase in 02 needs; Additional info: HX pe/new increase in o2 needs/? New pe TECHNIQUE: Imaging protocol: Computed tomographic angiography of the chest with intravenous contrast. 3D rendering: MIP reconstructed images were created and reviewed. Radiation optimization: All CT scans at this facility use at least one of these dose optimization techniques: automated exposure control; mA and/or kV adjustment per patient size (includes targeted exams where dose is matched to clinical indication); or iterative reconstruction. Contrast material: ISOVUE 370; Contrast volume: 75 ml; Contrast route: IV; COMPARISON: CT ANGIO CHEST 02/15/2019 11:49 PM FINDINGS: Pulmonary arteries: There is a very small embolus demonstrated and may distal segmental branch of the pulmonary artery supplying the lateral segment of the left lower lobe (Series 401 image 96) and two segmental branches supplying the apical and posterior segments of the right upper lobe (series 405 image 36). Aorta: The aorta demonstrates mild atherosclerotic calcification. There is fusiform dilatation of the ascending thoracic aorta which measures 4 cm. maximally. There is no dissection or saccular component. Lungs: Bibasilar atelectasis. Degenerative changes both glenohumeral joints. Pleural space: Unremarkable. No pneumothorax. No pleural effusion. Heart: Unremarkable. No cardiomegaly. No pericardial effusion. No right heart strain. Liver: 1.4 cm cyst in the hepatic dome. Gallbladder and bile ducts: Cholecystectomy. Adrenals: Left adrenal hyperplasia. Kidneys and ureters: Small right renal cyst. Lymph nodes: Unremarkable. No enlarged lymph nodes. Bones/joints: Status post lower cervical anterior interbody fusion. The spine demonstrates mild degenerative changes. Osteoporosis. Soft tissues: Unremarkable. IMPRESSION: 1. There is fusiform dilatation of the ascending thoracic aorta which measures 4 cm. maximally. There is no dissection or saccular component. 2. Small new pulmonary emboli as described above. Previously reported emboli in the left upper lobe and right lower lobe have substantially recanalized. 3. No right heart strain. THIS REPORT CONTAINS FINDINGS THAT MAY BE CRITICAL TO PATIENT CARE. The findings were verbally communicated via telephone conference with Zoe ZAPATA at 7:17 PM EST on 02/23/2019. The findings were acknowledged and understood. Electronically signed by: Bradley Faustin On 02/23/2019 19:18:47 PM
[2019-02-23] MEDS ORDERED: ACETAMINOPHEN *IV* 1,000 MG in IV 1 EA IV ONE (19:45)
[2019-02-23] MEDS ORDERED: METOCLOPRAMIDE INJ 10MG/2ML VIAL (J2765) IV ONE (19:45)
[2019-02-23] MEDS ORDERED: GABA-845 PO (20:31)
[2019-02-23] MEDS ORDERED: DIPH25TA4 PO (20:31)
[2019-02-23] MEDS ORDERED: BISO10TA10 PO (20:31)
[2019-02-23] MEDS ORDERED: PARO20TA4 PO (20:31)
[2019-02-23] MEDS ORDERED: PANT20TA51 PO (20:31)
[2019-02-23] MEDS ORDERED: CRES40TA PO (20:31)
[2019-02-23] MEDS ORDERED: EXCETAB33 PO (20:33)
[2019-02-23] MEDS ORDERED: MAGN400T2 PO (20:36)
[2019-02-23] MEDS ORDERED: POTA10TA16 PO (20:36)
[2019-02-23] MEDS ORDERED: ELIQ5TAB PO (20:36)
[2019-02-23] MEDS ORDERED: [UNRECOGNIZED DRUG - CODE] PO (20:42)
[2019-02-23] MEDS ORDERED: HEPARIN SOD (PORCINE) 5000 UNITS/ML VIAL IV ONE (21:45)
[2019-02-23] MEDS ORDERED: MOM 30ML SUSPENSION UDC PO PRN (21:45)
[2019-02-23] MEDS ORDERED: HEPARIN SOD (PORCINE) 5000 UNITS/ML VIAL IV PRN (21:45)
[2019-02-23 22:00] LABS: HEMOGLOBIN 10.6 g/dl (12.0-15.5); MEAN CORPUSCULAR HEMOGLOBIN 31.8 pg (27.0-33.0); MEAN CORPUSCULAR HGB CONC 31.2 g/dl (32.0-36.5); MEAN CORPUSCULAR VOLUME 102.1 fl (80.0-96.0); PLATELET COUNT, AUTOMATED 252 10^3/uL (150-450); RED BLOOD COUNT 3.33 10^6/uL (4.00-5.40); WHITE BLOOD COUNT 9.4 10^3/uL (4.0-10.0)
[2019-02-23] MEDS ORDERED: EXCEDRIN MIGRAINE TABLET PO PRN (23:00)
[2019-02-23 23:33] VITALS: BP 162/88
[2019-02-23] MEDS ORDERED: PREVNAR 13 VACCINE SYRINGE (CPT CODE:90670) IM ONE (23:45)
[2019-02-24] VITALS (20 sets, daily range): BP systolic 108–149; BP diastolic 58–71; O2SAT 90–97
[2019-02-24] MEDS: HEPARIN DRIP 25,000 UNITS in IV 1 EA IV SCH (00:17)
[2019-02-24] MEDS: diphenhydrAMINE 25 MG CAP PO PRN ×2 (00:47→23:51)
[2019-02-24] MEDS: guaiFENesin ER 600 MG TAB PO SCH ×3 (00:48→20:21)
[2019-02-24] MEDS ORDERED: ACETAMINOPHEN TAB 650MG DOSE (2X325MG) PO PRN (01:00)
[2019-02-24] MEDS ORDERED: EXCEDRIN MIGRAINE TABLET PO PRN (02:00)
[2019-02-24] MEDS ORDERED: ACETAMINOPHEN 500 MG TAB PO PRN (02:00)
[2019-02-24 06:19] LABS: HEMOGLOBIN 10.7 g/dl (12.0-15.5); MEAN CORPUSCULAR HEMOGLOBIN 31.8 pg (27.0-33.0); MEAN CORPUSCULAR HGB CONC 31.5 g/dl (32.0-36.5); MEAN CORPUSCULAR VOLUME 100.9 fl (80.0-96.0); PLATELET COUNT, AUTOMATED 241 10^3/uL (150-450); RED BLOOD COUNT 3.37 10^6/uL (4.00-5.40); WHITE BLOOD COUNT 8.8 10^3/uL (4.0-10.0)
[2019-02-24 06:50] LABS: BLOOD UREA NITROGEN 9 MG/DL (7-18); CALCIUM LEVEL 9.2 MG/DL (8.8-10.2); CARBON DIOXIDE LEVEL 30 MEQ/L (21-32); CHLORIDE LEVEL 107 MEQ/L (98-107); CREATININE FOR GFR 0.73 MG/DL (0.55-1.30); GLOMERULAR FILTRATION RATE > 60.0 (>32); GLUCOSE, FASTING 99 MG/DL (70-100); MAGNESIUM LEVEL 1.7 MG/DL (1.8-2.4); POTASSIUM SERUM 3.6 MEQ/L (3.5-5.1); SODIUM LEVEL 144 MEQ/L (136-145)
--- NOTE | 2019-02-24 07:00 | HPEPDOC ---
General Date of Admission Feb 23, 2019 at 21:07 Date of Service: Feb 23, 2019 Primary Care Physician: Jorge Fischer M.D. Attending Physician: JOSIANE MAX MD Chief Complaint The patient is a 83-year-old female admitted with a reason for visit of Pulmonary Embolism. History of Present Illness 83-year-old female with extensive PMH noted below presents for cough with green sputum and progressive dyspnea. Information obtained through patient and her tyrone Bourgeois the room. Was seen in the ER last week on the for shortness of breath, started on Eliquis for newly-found PE. She reports she took a total of 4 pills, and afterwards noted bright red blood per rectum, and has been off anticoagulation since. She was hospitalized from February 17 through for the GI bleed, requiring 2 units PRBCs. EGD and colonoscopy done revealed ulcer in the mid sigmoid, 10 mm polyp in the ascending colon, severe diverticulosis in sigmoid, descending, and transverse colon, and internal hemorrhoids. There was no active bleed found, however suspicion was bleed from ulcer versus diverticuli. She reports her bleeding stopped few days after stopping her E liquis, and has not had any further melena or hematochezia since. Upon discharge, she was recommended to take a 7-day break from Eliquis and then follow-up with PCP for possible resumption of her anticoagulation. Since her discharge 2 days ago, she has noted increased cough with green sputum and feeling more short of breath. Noted to be satting in high 80s in ER on this visit, requiring 2L NC. CTA was positive for new small PEs in distal segmental pulmonary artery & segmental branches of right upper lobe. Denies any f/c, isck contacts, other changes in meds, travel. Does admit to being more bed-ridden since recent illnesses and hospitalizations. She will be admitted for recurrent PE treatment and monitor for bleed. Home Medications Scheduled Bisoprolol Fumarate (Bisoprolol Fumarate) 10 Mg Tablet, 10 MG PO DAILY, (Reported) Gabapentin (Gabapentin) 400 Mg Capsule, 400 MG PO TID, (Reported) TAKES AT 0900, 1600, AND 2100 Guaifenesin (Mucinex) 600 Mg Tab.er.12h, 1,200 MG PO BID Hydrocodone Bitartrate (Zohydro ER) 10 Mg Cap.er.12h, 20 MG PO BID, (Reported) PRESCRIBED BY AND DISPENSED THROUGH A [facility] Magnesium Oxide (Magnesium Oxide) 400 Mg Tablet, 400 MG PO BID Pantoprazole Sodium (Pantoprazole Sodium) 20 Mg Tablet.dr, 40 MG PO DAILY, (Reported) Paroxetine HCl (Paroxetine) 20 Mg Tablet, 20 MG PO BID, (Reported) ORDERED ONCE DAILY BUT DAUGHTER SAYS PATIENT TAKES IT BID Potassium Chloride (Potassium Chloride) 10 Meq Tab.er.prt, 10 MEQ PO DAILY, (Reported) Rivaroxaban (Xarelto) 15 Mg Tablet, 15 MG PO BID@ Rosuvastatin Calcium (Crestor) 40 Mg Tablet, 40 MG PO DAILY, (Reported) diphenhydrAMINE HCl (diphenhydrAMINE HCl) 25 Mg Tablet, 50 MG PO QHS, (Reported) Allergies Coded Allergies: Penicillins (Verified Allergy, Mild, rash, 08/26/18) aspirin (Verified Allergy, Mild, rash, 08/26/18) atorvastatin (Verified Allergy, Unknown, 08/26/18) Past Medical History Medical History Osteoporosis Insomnia GI bleed Hyperlipidemia Hypertension LATANYA noncompliant with CPAP Melanoma S/P excision and lymph node removal plus graft Prediabetes 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 [place] Migraines Surgical History Cholecystectomy Tonsillectomy and adenoidectomy C-spine fusion Lumbar decompression & fusion Hysterectomy Right knee repair Carpal tunnel release Trigger finger release Family History Father was alcoholic Mother with skin cancer Son with prostate cancer Social History Denies ever smoking, alcohol, illicit substances Lives at home with daughter A-FIB/CHADSVASC A-FIB History Current/History of A-Fib/PAF?: No Current PO Anticoag Therapy: Yes Review of Systems Other systems Constitutional: Denies fever, chills, night sweats, weight loss HEENT: Denies dysphagia, sore throat, swelling. Admits chronic frontal headache Skin: Denies any rashes or lesions Pulmonary: Denies wheezing and hemoptysis. Admits dyspnea with green sputum Cardiac: Denies chest pain, palpitations, orthopnea, PND, edema, lightheadedness GI: Denies nausea, vomiting, abdominal pain, diarrhea, constipation, melena, hematochezia : denies hematuria MSK: Denies new pains or weakness Neurologic: Denies new numbness/tingling Physical Examination Other physical findings General exam: A&O 3, NAD, resting comfortably, speaking in full sentences HEENT: NCAT, EOMI, no adenopathy or oral exudates. Minimal posterior pharynx erythema likely from cough Cardiac: RRR, normal S1 & S2, no murmurs Respiratory: CTAB, good air exchange, no w/r/r. Minimal cough while examined. No accessory muscle use, on 2L supplemental O2 Abdomen: soft, NT, ND, normoactive bowel sounds Extremity: 2+ radial and dorsalis pedis pulses, no edema or calf tenderness Skin: Florin, warm, dry, no visible rash Msk: strength 5/5 x4, normal tone Neuro: normal speech, no focal deficits Psych: Normal mood and affect Vital Signs Vital Signs Date Time Temp Pulse Resp B/P (MAP) Pulse Ox O2 Delivery O2 Flow Rate FiO2 02/23/19 23:33 97.5 77 20 162/88 (112) 96 Nasal Cannula 2.0 Laboratory Data Labs 24H Laboratory Tests 2 02/23/19 15:53: Immature Granulocyte % (Auto) 0.4, Neutrophils (%) (Auto) 67.5H, Lymphocytes (%) (Auto) 19.9L, Monocytes (%) (Auto) 8.8H, Eosinophils (%) (Auto) 3.0, Basophils (%) (Auto) 0.4, Neutrophils # (Auto) 6.8, Lymphocytes # (Auto) 2.0, Monocytes # (Auto) 0.9H, Eosinophils # (Auto) 0.3, Basophils # (Auto) 0.0, Nucleated Red Blood Cells % (auto) 0.0, Prothrombin Time 13.1, Prothromb Time International Ratio 1.02, Anion Gap 3L, Glomerular Filtration Rate > 60.0, Lactic Acid Level 1.3, Calcium Level 9.2, Total Bilirubin 0.4, Direct Bilirubin < 0.1, Aspartate Amino Transf (AST/SGOT) 40H, Alanine Aminotransferase (ALT/SGPT) 20, Alkaline Phosphatase 45, Total Creatine Kinase 406H, Creatine Kinase MB 4.6H, Creatine K inase MB Relative Index 1.13, Troponin I < 0.02, DY-Vek-N-Type Natriuretic Peptide 415, Total Protein 5.7L, Albumin 3.0L, Albumin/Globulin Ratio 1.11, Influenza Type A (RT-PCR) NEGATIVE, Influenza Type B (RT-PCR) NEGATIVE 11/29/19 21:55: Nucleated Red Blood Cells % (auto) 0.0, Activated Partial Thromboplast Time 32.3 CBC/BMP Laboratory Tests 02/23/19 15:53 02/23/19 21:55 Microbiology Microbiology 02/23/19 Blood Culture, Received Pending 02/23/19 Blood Culture, Received Pending Assessment/Plan 83-year-old female with extensive past medical history, recently diagnosed PE, thereafter GI bleed on Eliquis, which was recently discontinued, presenting for shortness of breath, 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 Recurrent PE likely 2/2 stopping AC and also decreased mobilization from recent illnesses no O2 at baseline, requiring 2L NC currently discussed in depth risks/benefits of restarting AC. Pt and daughter agreeable, but do not want Eliquis Heparin drip initiated for easy reversibility, monitor for bleed may benefit from IVC filter, discuss with Vasc Sx in am Recent GI bleed s/p 2U PRBC last week. Suspect for bleeding ulcer vs diverticuli from EGD/colon Transfuse to maintain Hgb >7 currently asymptomatic and no signs of bleed monitor with heparin drip Cough no fever of lactic acidosis. Clear lungs, no infiltrate on CT likely viral vs acute bronchitis monitor, supportive care. Hold abx currently sputum, blood cultures & resp panel pending HLD continue meds HTN continue meds LATANYA noncompliant with CPAP melanoma s/p excision prediabetes diet controlled Hx of Cdiff with failed transplant stable, no GI complaints DVT ppx: heparin drip DISPO: admit to hospital, monitor for bleed while restarted on AC. Consider Vasc Surg consult in am. Plan / VTE VTE Prophylaxis Ordered?: Yes GME ATTESTATION GME ATTESTATION My faculty preceptor for this patient encounter was physically present during the encounter and was fully available. All aspects of the patient interview, examination, medical decision making process, and medical care plan development were reviewed and approved by the faculty preceptor. The faculty preceptor is aware and concurs with the plan as stated in the body of this note and will attest to such by his/her cosignature. ATTENDING NOTE I have personally evaluated and examined the patient. I have reviewed the history and physical as documented by the the resident and discussed with resident regarding plan of care and agree with the above assessment and plan. ABE DEAL DO Feb 24, 2019 02:27 JOSIANE MAX MD Feb 24, 2019 22:18
[2019-02-24] MEDS: PARoxetine 20 MG TAB PO SCH ×2 (08:40→20:21)
[2019-02-24] MEDS: GABAPENTIN 400 MG CAP PO SCH ×3 (08:40→20:21)
[2019-02-24] MEDS: PANTOPRAZOLE 40MG TAB (PROTONIX) PO SCH (08:40)
[2019-02-24] MEDS: POTASSIUM CHLORIDE 10 MEQ SR TABLET PO SCH (08:41)
[2019-02-24] MEDS: MAGNESIUM OXIDE 400 MG TAB (MAG-OX) PO SCH (08:41)
[2019-02-24] MEDS: ROSUVASTATIN 10 MG TAB (CRESTOR) PO SCH (08:42)
[2019-02-24] MEDS: BISOPROLOL FUMARATE 10 MG TAB PO SCH (08:47)
[2019-02-24] MEDS ORDERED: PREVNAR 13 VACCINE SYRINGE (CPT CODE:90670) IM ONE (09:00)
[2019-02-24] MEDS: CAFFEINE 65 MG PO PRN ×2 (11:13→20:22)
[2019-02-24] MEDS: ACETAMINOPHEN PO PRN ×2 (11:13→20:22)
[2019-02-24] MEDS ORDERED: TENS1TAB2 PO (16:19)
--- NOTE | 2019-02-24 17:12 | IPNPDOC ---
Subjective Date Seen The patient was seen on 02/24/19. Subjective Chief Complaint/HPI Eva reports that her breathing is ok today. She has a headache right now and is more concerned about that than her PE. She does state that if she needs to be on an anticoagulant again she will not take Eliquis. General: Reports: Normal Appetite Constitutional: Denies: Chills, Fever Pulmonary: Denies: Cough, Pleuritic Chest Pain Cardiovascular: Denies: Chest Pain, Palpitations Objective Physical Examination General Exam: Positive: Alert, No Acute Distress (sitting in a chair when I entered the room) Eye Exam: Positive: Conjunctiva & lids normal; Negative: Sclera icteric ENT Exam: Positive: Mucous membr. moist/pink Neck Exam: Positive: Supple; Negative: Lymphadenopathy Chest Exam: Positive: Clear to auscultation, Normal air movement Heart Exam: Positive: Rate Normal, Normal S1, Normal S2; Negative: Murmurs Abdomen Exam: Positive: Normal bowel sounds, Soft; Negative: Tenderness Extremity Exam: Negative: Edema Neuro Exam: Positive: Normal Speech Assessment /Plan Problems (1) Pulmonary embolism Status: Acute Discussed With: Nurse, Patient, Family with Pt Consent Problem Specific Plan: Monitor Clinically, Repeat Labs Problem Text: She is currently maintained on a heparin drip. I realize that she has recently had a gastrointestinal hemorrhage while anticoagulated, but because her pulmonary embolism is so fresh I'm quite confident that she is forming new clot from the old clot. She needs to anticoagulated. I will communicate with her primary care provider, Dr. Fischer, to get a better perspective on how he would like to manage her in the outpatient setting. Placement of an IVC filter was suggested by the admitting hospitalist team and this is a reasonable consideration. Continue the heparin drip for now. (2) GI bleeding Status: Resolved Problem Specific Plan: Monitor Clinically, Repeat Labs Problem Text: She recently had a gastrointestinal bleed and required a 2 unit blood transfusion last week. This was after 2 days of Eliquis. She refuses to go back on Eliquis. Right now she is not having any bleeding while on the heparin drip. We will need to manage these 2 issues very carefully. (3) Headache Status: Chronic Discussed With: Patient Problem Specific Plan: Monitor Clinically Problem Text: She reports daily headaches for which she takes an [id number] ter acetaminophen/caffeine preparation (she is clear that it does not have any aspirin and it). I'm not sure what her headache is related to. It could even be rebound headaches because of regular acetaminophen use or because of caffeine dependency. Right now I'll monitor her clinical situation. If this becomes a bigger issue we could consult neurology, but I doubt that that is necessary at this time. (4) Obstructive sleep apnea Status: Chronic Problem Text: She reportedly has obstructive sleep apnea, is on narcotic medications for pain control in the outpatient setting, and is noncompliant with her CPAP. This certainly could be a part of her headaches. I will keep her on continuous pulse ox monitoring while here in the hospital especially because she has acute and subacute pulmonary emboli. These will not help her pulmonary arterial pressures any. (5) Hypertension Status: Chronic Problem Specific Plan: Monitor Clinically Problem Text: Her blood pressure is currently reasonably controlled. Continue current regimen, monitor. Plan/VTE VTE Prophylaxis Ordered?: Yes (heparin drip) VS, I&O, 24H, Fishbone Vital Signs/I&O Vital Signs Date Time Temp Pulse Resp B/P (MAP) Pulse Ox O2 Delivery O2 Flow Rate FiO2 02/24/19 16:00 96.6 88 18 114/70 (85) 94 Nasal Cannula 1.0 I&O- Last 24 Hours up to 6 AM 02/24/19 06:00 Intake Total 380 ml Output Total 400 ml Balance -20 ml Laboratory Data 24H LABS Laboratory Tests 2 02/23/19 21:55: Nucleated Red Blood Cells % (auto) 0.0, Activated Partial Thromboplast Time 32.3 02/24/19 06:01: Nucleated Red Blood Cells % (auto) 0.0, Activated Partial Thromboplast Time > 240.0*H, Anion Gap 7L, Glomerular Filtration Rate > 60.0, Calcium Level 9.2, Magnesium Level 1.7L 02/24/19 14:55: Activated Partial Thromboplast Time 133.2*H CBC/BMP Laboratory Tests 02/23/19 21:55 02/24/19 06:01 Microbiology Microbiology 02/24/19 Gram Stain - Final, Resulted 02/24/19 Sputum Culture, Resulted Pending 02/24/19 Respiratory Virus Panel (PCR) ([facility]) - Final, Complete Human Rhinovirus/Enterovirus 02/23/19 Blood Culture - Preliminary, Resulted No growth after 24 hours . All specim... 02/23/19 Blood Culture - Preliminary, Resulted No growth after 24 hours . All specim... Vipul Catherine MD Feb 24, 2019 5:12 pm
[2019-02-25] VITALS (22 sets, daily range): BP systolic 129–148; BP diastolic 69–88; O2SAT 91–97
[2019-02-25 06:05] LABS: HEMATOCRIT 31.1 % (36.0-47.0); HEMOGLOBIN 9.9 g/dl (12.0-15.5); MEAN CORPUSCULAR HEMOGLOBIN 31.5 pg (27.0-33.0); MEAN CORPUSCULAR HGB CONC 31.8 g/dl (32.0-36.5); PLATELET COUNT, AUTOMATED 281 10^3/uL (150-450); RED BLOOD COUNT 3.14 10^6/uL (4.00-5.40); WHITE BLOOD COUNT 8.5 10^3/uL (4.0-10.0)
[2019-02-25] MEDS: HEPARIN DRIP 25,000 UNITS in IV 1 EA IV SCH (06:18)
[2019-02-25] MEDS: POTASSIUM CHLORIDE 10 MEQ SR TABLET PO SCH (08:01)
[2019-02-25] MEDS: GABAPENTIN 400 MG CAP PO SCH ×3 (08:01→20:57)
[2019-02-25] MEDS: PANTOPRAZOLE 40MG TAB (PROTONIX) PO SCH (08:01)
[2019-02-25] MEDS: ROSUVASTATIN 10 MG TAB (CRESTOR) PO SCH (08:01)
[2019-02-25] MEDS: guaiFENesin ER 600 MG TAB PO SCH ×2 (08:01→20:56)
[2019-02-25] MEDS: MAGNESIUM OXIDE 400 MG TAB (MAG-OX) PO SCH ×3 (08:01→20:56)
[2019-02-25] MEDS: PARoxetine 20 MG TAB PO SCH ×2 (08:01→20:57)
[2019-02-25] MEDS: BISOPROLOL FUMARATE 10 MG TAB PO SCH (08:02)
[2019-02-25] MEDS: ACETAMINOPHEN PO PRN ×2 (09:05→20:56)
[2019-02-25] MEDS: CAFFEINE 65 MG PO PRN ×2 (09:05→20:56)
[2019-02-25] MEDS ORDERED: NORCO, ANEXSIA 5/325MG TABLET (HYDROcodone/ACETAMINOPHEN) PO PRN (14:15)
[2019-02-25] MEDS: NORCO, ANEXSIA 5/325MG TABLET (HYDROcodone/ACETAMINOPHEN) PO PRN ×2 (16:09→23:31)
[2019-02-25] MEDS: RIVAROXABAN 15 MG TAB (XARELTO) PO SCH (17:20)
--- NOTE | 2019-02-25 18:12 | IPNPDOC ---
Subjective Date Seen The patient was seen on 02/25/19. Subjective Chief Complaint/HPI Eva reports that her breathing is fine today. She has not had any bleeding that she is aware of. Her back is the thing that is bothering her the most today. She takes hydrocodone for this at home, but it has not been prescribed here yet. She is requesting this. Her headache is a little improved today, but is still present. General: Reports: Normal Appetite ENT: Reports: Head Aches Gastrointestinal: Denies: Melena, Hematochezia Hematologic: Denies: Bruising, Bleeding Excessively Musculoskeletal: Reports: Back Pain Objective Physical Examination General Exam: Positive: Alert, Cooperative, No Acute Distress (laying in bed resting when I entered the room) Eye Exam: Positive: Conjunctiva & lids normal; Negative: Sclera icteric ENT Exam: Positive: Mucous membr. moist/pink Neck Exam: Positive: Supple; Negative: Lymphadenopathy Chest Exam: Positive: Clear to auscultation, Normal air movement, Other (no dullness on percussion) Heart Exam: Positive: Rate Normal, Normal S1, Normal S2; Negative: Murmurs Abdomen Exam: Positive: Normal bowel sounds, Soft; Negative: Tenderness Extremity Exam: Negative: Edema Neuro Exam: Positive: Normal Speech Psych Exam: Positive: Mood NL, Oriented x 3 Assessment /Plan Problems (1) Pulmonary embolism Status: Acute Discussed With: Nurse, Patient, Family with Pt Consent Problem Specific Plan: Monitor Clinically, Repeat Labs Problem Text: She is currently maintained on a heparin drip. I spoke with Dr. Yang aguila about his preferences for anticoagulation and he would really like to stick with a direct oral anticoagulant. She has previous bled on Eliquis and doesn't want this medication. We will try Xarelto. This has the benefit of being a once a day medication after the initial 21 days. This will help simplify the regimen for her. I counseled her on the common side effects including the most common on e, bleeding. We will start the Xarelto this evening and stop the heparin drip when the first dose is given. (2) GI bleeding Status: Resolved Problem Specific Plan: Monitor Clinically, Repeat Labs Problem Text: She recently had a gastrointestinal bleed and required a 2 unit blood transfusion last week. This was after 2 days of Eliquis. She refuses to go back on Eliquis. Right now she is not having any bleeding while on the heparin drip. We will need to manage these 2 issues very carefully. (3) Headache Status: Chronic Discussed With: Patient Problem Specific Plan: Monitor Clinically Problem Text: She reports daily headaches for which she takes an [id number] acetaminophen/caffeine preparation (she is clear that it does not have any aspirin and it). I'm not sure what her headache is related to. It could even be rebound headaches because of regular acetaminophen use or because of caffeine dependency. I am adding an additional dose of oral magnesium to her regimen as she is slightly low on today's labs. This may help the headache. If this becomes a bigger issue we could consult neurology, but I doubt that that is necessary at this time. (4) Degenerative disc disease Status: Chronic Problem Specific Plan: Monitor Clinically Problem Text: I prescribed her hydrocodone (5 or 10mg q6h prn). She was displeased as she typically takes 20mg per dose at home. I asked her to try the 10mg dose and the nurses can call if we need to increase it. I want to be cautious with her respiratory status since she is admitted with multiple PEs. (5) Obstructive sleep apnea Status: Chronic Problem Text: She reportedly has obstructive sleep apnea, is on narcotic medications for pain control in the outpatient setting, and is noncompliant with her CPAP. This certainly could be a part of her headaches. I will keep her on continuous pulse ox monitoring while here in the hospital especially because she has acute and subacute pulmonary emboli. These will not help her pulmonary arterial pressures any. (6) Hypertension Status: Chronic Problem Specific Plan: Monitor Clinically Problem Text: Her blood pressures are creeping up, but this could be to the increase pain. Will see how they respond once she is on her hydrocodone again. Continue current regimen, monitor. Plan/VTE VTE Prophylaxis Ordered?: Yes (heparin drip, will change to Xarelto) VS, I&O, 24H, Fishbone Vital Signs/I&O Vital Signs Date Time Temp Pulse Resp B/P (MAP) Pulse Ox O2 Delivery O2 Flow Rate FiO2 02/25/19 17:00 93 Nasal Cannula 1.0 02/25/19 16:39 18 02/25/19 16:00 97.1 79 145/79 (101) I&O- Last 24 Hours up to 6 AM 02/25/19 06:00 Intake Total 684 ml Output Total 300 ml Balance 384 ml Laboratory Data 24H LABS Laboratory Tests 2 02/24/19 23:26: Activated Partial Thromboplast Time 74.6H 02/25/19 05:47: Activated Partial Thromboplast Time 75.0H, Nucleated Red Blood Cells % (auto) 0.0 CBC/BMP Laboratory Tests 02/25/19 05:47 Microbiology Microbiology 02/24/19 Gram Stain - Final, Resulted 02/24/19 Sputum Culture, Resulted Pending 02/24/19 Respiratory Virus Panel (PCR) ([facility]) - Final, Complete Human Rhinovirus/Enterovirus 02/23/19 Blood Culture - Preliminary, Resulted No Growth after 48 hours. All Specime... 02/23/19 Blood Culture - Preliminary, Resulted No Growth after 48 hours. All Specime... Vipul Catherine MD Feb 25, 2019 6:12 pm
[2019-02-26] VITALS (17 sets, daily range): BP systolic 120–164; BP diastolic 64–82; O2SAT 87–95
[2019-02-26] MEDS: diphenhydrAMINE 25 MG CAP PO PRN (00:54)
[2019-02-26 06:13] LABS: HEMATOCRIT 31.9 % (36.0-47.0); HEMOGLOBIN 9.9 g/dl (12.0-15.5); MEAN CORPUSCULAR HEMOGLOBIN 31.4 pg (27.0-33.0); MEAN CORPUSCULAR VOLUME 101.3 fl (80.0-96.0); PLATELET COUNT, AUTOMATED 271 10^3/uL (150-450); RED BLOOD COUNT 3.15 10^6/uL (4.00-5.40); WHITE BLOOD COUNT 5.8 10^3/uL (4.0-10.0)
[2019-02-26 06:45] LABS: BLOOD UREA NITROGEN 14 MG/DL (7-18); CARBON DIOXIDE LEVEL 31 MEQ/L (21-32); CHLORIDE LEVEL 107 MEQ/L (98-107); CREATININE FOR GFR 0.78 MG/DL (0.55-1.30); GLOMERULAR FILTRATION RATE > 60.0 (>32); GLUCOSE, FASTING 130 MG/DL (70-100); POTASSIUM SERUM 3.6 MEQ/L (3.5-5.1); SODIUM LEVEL 143 MEQ/L (136-145)
[2019-02-26] MEDS: CAFFEINE 65 MG PO PRN ×2 (10:05→19:07)
[2019-02-26] MEDS: ACETAMINOPHEN PO PRN ×2 (10:05→19:07)
[2019-02-26] MEDS: POTASSIUM CHLORIDE 10 MEQ SR TABLET PO SCH (10:07)
[2019-02-26] MEDS: PARoxetine 20 MG TAB PO SCH ×2 (10:07→20:57)
[2019-02-26] MEDS: guaiFENesin ER 600 MG TAB PO SCH ×2 (10:07→20:57)
[2019-02-26] MEDS: RIVAROXABAN 15 MG TAB (XARELTO) PO SCH ×2 (10:07→19:07)
[2019-02-26] MEDS: GABAPENTIN 400 MG CAP PO SCH ×3 (10:07→20:57)
[2019-02-26] MEDS: PANTOPRAZOLE 40MG TAB (PROTONIX) PO SCH (10:07)
[2019-02-26] MEDS: BISOPROLOL FUMARATE 10 MG TAB PO SCH (10:08)
[2019-02-26] MEDS: ROSUVASTATIN 10 MG TAB (CRESTOR) PO SCH (10:08)
[2019-02-26] MEDS: MAGNESIUM OXIDE 400 MG TAB (MAG-OX) PO SCH ×2 (10:08→20:57)
[2019-02-26] MEDS: NORCO, ANEXSIA 5/325MG TABLET (HYDROcodone/ACETAMINOPHEN) PO PRN (10:31)
--- NOTE | 2019-02-26 11:12 | IPNPDOC ---
Subjective Date Seen The patient was seen on 02/26/19. Subjective Chief Complaint/HPI Pt this morning states that she is feeling weak. She didn't sleep well last night. She was seen while she was working with PT who reported that she did well and they had no reason to keep her here. General: Reports: Fatigue Constitutional: Denies: Chills, Fever Pulmonary: Denies: Dyspnea, Cough Cardiovascular: Denies: Chest Pain, Palpitations Gastrointestinal: Denies: Nausea, Vomiting Neurological: Reports: Weakness Psych: Reports: Mood Normal Objective Physical Examination General Exam: Positive: Alert, Cooperative, No Acute Distress Eye Exam: Negative: Sclera icteric ENT Exam: Positive: Mucous membr. moist/pink Neck Exam: Positive: Supple; Negative: Lymphadenopathy Chest Exam: Positive: Clear to auscultation, Normal air movement, Other (no d ullness on percussion) Heart Exam: Positive: Rate Normal, Normal S1, Normal S2; Negative: Murmurs Abdomen Exam: Positive: Normal bowel sounds, Soft; Negative: Tenderness Extremity Exam: Negative: Edema Neuro Exam: Positive: Normal Speech Psych Exam: Positive: Mood NL, Oriented x 3 Assessment /Plan Problems (1) Chronic headache Status: Chronic Problem Text: favor cervicogenic, opioid-withdrawal 02/[address] head (2) Pulmonary embolism Status: Acute Discussed With: Nurse, Patient, Family with Pt Consent Problem Specific Plan: Monitor Clinically, Repeat Labs Problem Text: 02/26 transitioned to Xarelto yesterday, will cont fro 21 days. 02/25 She is currently maintained on a heparin drip. I spoke with Dr. Fischer about his preferences for anticoagulation and he would really like to stick with a direct oral anticoagulant. She has previous bled on Eliquis and doesn't want this medication. We will try Xarelto. This has the benefit of being a once a day medication after the initial 21 days. This will help simplify the regimen for her. I counseled her on the common side effects including the most common one, bleeding. We will start the Xarelto this evening and stop the heparin drip when the first dose is given. (3) GI bleeding Status: Resolved Problem Specific Plan: Monitor Clinically, Repeat Labs Problem Text: She recently had a gastrointestinal bleed and required a 2 unit blood transfusion last week. This was after 2 days of Eliquis. She refuses to go back on Eliquis. Right now she is not having any bleeding while on the heparin drip. We will need to manage these 2 issues very carefully. (4) Headache Status: Chronic Discussed With: Patient Problem Specific Plan: Monitor Clinically Problem Text: She reports daily headaches for which she takes an over-the-c ounter acetaminophen/caffeine preparation (she is clear that it does not have any aspirin and it). I'm not sure what her headache is related to. It could even be rebound headaches because of regular acetaminophen use or because of caffeine dependency. I am adding an additional dose of oral magnesium to her regimen as she is slightly low on today's labs. This may help the headache. If this becomes a bigger issue we could consult neurology, but I doubt that that is necessary at this time. (5) Degenerative disc disease Status: Chronic Problem Specific Plan: Monitor Clinically Problem Text: I prescribed her hydrocodone (5 or 10mg q6h prn). She was displeased as she typically takes 20mg per dose at home. I asked her to try the 10mg dose and the nurses can call if we need to increase it. I want to be caut ious with her respiratory status since she is admitted with multiple PEs. (6) Obstructive sleep apnea Status: Chronic Problem Text: She reportedly has obstructive sleep apnea, is on narcotic medications for pain control in the outpatient setting, and is noncompliant with her CPAP. This certainly could be a part of her headaches. I will keep her on continuous pulse ox monitoring while here in the hospital especially because she has acute and subacute pulmonary emboli. These will not help her pulmonary arterial pressures any. (7) Hypertension Status: Chronic Problem Specific Plan: Monitor Clinically Problem Text: Her blood pressures are creeping up, but this could be to the increase pain. Will see how they respond once she is on her hydrocodone again. Continue current regimen, monitor. Plan/VTE VTE Prophylaxis Ordered?: Yes (heparin drip, will change to Xarelto) VS, I&O, 24H, Fishbone Vital Signs/I&O Vital Signs Date Time Temp Pulse Resp B/P (MAP) Pulse Ox O2 Delivery O2 Flow Rate FiO2 02/26/19 10:31 96.4 75 20 144/75 95 Room Air 2.0 I&O- Last 24 Hours up to 6 AM 02/26/19 06:00 Intake Total 1040 ml Output Total 150 ml Balance 890 ml Laboratory Data 24H LABS Laboratory Tests 2 02/26/19 05:59: Nucleated Red Blood Cells % (auto) 0.0, Activated Partial Thromboplast Time 37.7, Anion Gap 5L, Glomerular Filtration Rate > 60.0, Calcium Level 9.0 CBC/BMP Laboratory Tests 02/26/19 05:59 Microbiology Microbiology 02/24/19 Gram Stain - Final, Complete 02/24/19 Sputum Culture - Final, Complete 02/24/19 Respiratory Virus Panel (PCR) ([facility]) - Final, Complete Human Rhinovirus/Enterovirus 02/23/19 Blood Culture - Preliminary, Resulted No Growth after 48 hours. All Specime... 02/23/19 Blood Culture - Preliminary, Resulted No Growth after 48 hours. All Specime... DORCAS GUY PA-C Feb 26, 2019 11:12 Jorge Fischer M.D. Feb 26, 2019 15:55
--- NOTE | 2019-02-26 16:47 | REP ---
CT brain: 02/26/2019. Indication: Headache. Comparison: 05/16/2017. Technique: Unenhanced axial CT images of the brain were obtained from skull base to vertex. Findings: There is no acute intracranial hemorrhage, acute cortical infarction, mass effect, hydrocephalus or significant fluid within the mastoid air cells. Soft tissue nearly completely fills the visualized left sphenoid sinus. Diffuse volume loss is present. Patchy areas of white matter hypoattenuation are present within the cerebral hemispheres most consistent with chronic small vessel disease. Impression: No acute intracranial process. Left sphenoid sinus disease. Volume loss and sequelae of chronic microangiopathic ischemic disease. Electronically Signed by Osmel Rodriguez DO 02/26/2019 04:38 P
[2019-02-27] VITALS: BP 152/80
[2019-02-27] MEDS: diphenhydrAMINE 25 MG CAP PO PRN (01:31)
[2019-02-27] MEDS: CAFFEINE 65 MG PO PRN ×2 (01:32→08:36)
[2019-02-27] MEDS: ACETAMINOPHEN PO PRN ×2 (01:32→08:36)
[2019-02-27 04:00] VITALS: BP 140/64
[2019-02-27 06:02] LABS: HEMATOCRIT 34.6 % (36.0-47.0); HEMOGLOBIN 10.5 g/dl (12.0-15.5); MEAN CORPUSCULAR HEMOGLOBIN 30.5 pg (27.0-33.0); MEAN CORPUSCULAR HGB CONC 30.3 g/dl (32.0-36.5); MEAN CORPUSCULAR VOLUME 100.6 fl (80.0-96.0); PLATELET COUNT, AUTOMATED 295 10^3/uL (150-450); RED BLOOD COUNT 3.44 10^6/uL (4.00-5.40); WHITE BLOOD COUNT 6.4 10^3/uL (4.0-10.0)
[2019-02-27 07:41] VITALS: BP 156/79
[2019-02-27] MEDS: PANTOPRAZOLE 40MG TAB (PROTONIX) PO SCH (08:33)
[2019-02-27] MEDS: RIVAROXABAN 15 MG TAB (XARELTO) PO SCH (08:34)
[2019-02-27] MEDS: ROSUVASTATIN 10 MG TAB (CRESTOR) PO SCH (08:34)
[2019-02-27] MEDS: guaiFENesin ER 600 MG TAB PO SCH (08:34)
[2019-02-27 08:35] VITALS: BP 156/79
[2019-02-27] MEDS: MAGNESIUM OXIDE 400 MG TAB (MAG-OX) PO SCH (08:35)
[2019-02-27] MEDS: POTASSIUM CHLORIDE 10 MEQ SR TABLET PO SCH (08:35)
[2019-02-27] MEDS: BISOPROLOL FUMARATE 10 MG TAB PO SCH (08:35)
[2019-02-27] MEDS: PARoxetine 20 MG TAB PO SCH (08:35)
[2019-02-27] MEDS: GABAPENTIN 400 MG CAP PO SCH (08:35)
[2019-02-27 10:00] VITALS: O2SAT 94
[2019-02-27] MEDS ORDERED: MAG400TA PO (10:47)
[2019-02-27] MEDS ORDERED: XARE15TA PO (10:47)
[2019-02-27] MEDS ORDERED: MUCI600T31 PO (10:47)
--- NOTE | 2019-02-27 11:19 | DSES ---
DATE OF ADMISSION: 02/23/2019 DATE OF DISCHARGE: 02/27/2019 PRIMARY CARE PHYSICIAN: Dr. Jorge Fischer ATTENDING: Dr. Kwasi Bower HISTORY: This is an 83-year-old female patient who presented with her daughter for increased cough and sputum production. She was seen the week prior in the emergency room for increased shortness of breath. She was started on Eliquis with a newly found pulmonary embolus (PE). She took a total of four pills. She noted bright red blood per rectum and has since been off anticoagulation. Since her discharge for the PE, she noticed increased cough with sputum production, satting in the high 80s in the emergency room. CTA was positive for new small pulmonary emboli in distal segment of a pulmonary artery and segmental branches of the right upper lobe. She was admitted to the hospital for further management and monitoring. She had recurrent PE likely secondary to stopping anticoagulation and decreased mobilization. Risks and benefits were discussed with the patient in regards to anticoagulation. The patient and daughter are agreeable they do not want to return on Eliquis. We have discussed options, including Xarelto. They are agreeable to Xarelto. The patient has not had any recurrent gastrointestinal bleeding since her hospitalization. Her hemoglobin has been stable. She is 10.5 today on the day of anticipated discharge. She has a history of chronic headaches for which she takes over the counter acetaminophen and caffeine. She has been educated on the fact that this potentially could cause rebound headache and she may need outpatient followup in regards to this. She has a history of sleep apnea and is noncompliant with C-PAP. We have encouraged compliance at home, especially given her use of narcotic medications. She also has a history of high blood pressure for which we have been monitoring her pressures during her hospitalization. DISCHARGE DIAGNOSES: 1. Bilateral pulmonary embolism. 2. Gastrointestinal bleeding. 3. Chronic headache. 4. Degenerative disk disease. 5. Obstructive sleep apnea. 6. Hypertension. 7. Positive upper respiratory with Rhinovirus. DISCHARGE MEDICATIONS: - guaifenesin 1200 mg by mouth twice a day - magnesium oxide 400 mg by mouth twice a day - Xarelto 15 mg by mouth twice a day - bisoprolol 10 mg by mouth daily - diphenhydramine 50 mg by mouth at bedtime - gabapentin 400 mg by mouth three times a day - hydrocodone bitartrate 10 mg capsule extended release, 20 mg by mouth twice a day - Protonix 40 mg daily - paroxetine 20 mg twice daily - potassium 10 mEq daily - Crestor 40 mg daily DISCHARGE PLAN: To followup with her PCP, Dr. Fischer, in 1 weeks. Activity should be as tolerated. Diet should be no added salt. edited: 02/28/2019 0731 tkf MTDD
[2019-02-27] MEDS: NORCO, ANEXSIA 5/325MG TABLET (HYDROcodone/ACETAMINOPHEN) PO PRN (12:11)
== END 2019-02-27 13:31 | disposition home or self-care (01) | DRG 176 ==
LOC: M ED 14:43 → M ED INP 21:07 → M PCU 23:33
PROVIDERS: ADMIT Internal Medicine Nephrology; ATTEND Family Medicine
DX: I26.99 Other pulmonary embolism without acute cor pulmonale (principal); K92.2 Gastrointestinal hemorrhage, unspecified; E78.5 Hyperlipidemia, unspecified; I10 Essential (primary) hypertension; G47.33 Obstructive sleep apnea (adult) (pediatric); J06.9 Acute upper respiratory infection, unspecified; B34.8 Other viral infections of unspecified site; R73.03 Prediabetes; M19.90 Unspecified osteoarthritis, unspecified site; G47.00 Insomnia, unspecified; G43.909 Migraine, unspecified, not intractable, without status migrainosus; Z90.49 Acquired absence of other specified parts of digestive tract; Z98.1 Arthrodesis status; Z90.79 Acquired absence of other genital organ(s); Z79.899 Other long term (current) drug therapy; Z88.0 Allergy status to penicillin; Z88.6 Allergy status to analgesic agent; Z88.8 Allergy status to other drugs, medicaments and biological substances; Z79.01 Long term (current) use of anticoagulants; Z87.19 Personal history of other diseases of the digestive system; Z85.828 Personal history of other malignant neoplasm of skin; M51.37 Other intervertebral disc degeneration, lumbosacral region

== ENCOUNTER → 2019-03-06 | Outpatient (REF) | payer MEDICARE ==
[~2019-03-06] MED LIST changes: +DIPH25TA4 PO; +EXCETAB33 PO; +MAG400TA PO; +MUCI600T31 PO; +PANT20TA51 PO; +POTA10TA16 PO; -PREVNAR 13 VACCINE SYRINGE (CPT CODE:90670) IM ONE; +TENS1TAB2 PO; +XARE15TA PO; +[UNRECOGNIZED DRUG - CODE] PO
[2019-03-06 16:44] LABS: BASO # 0.1 10^3/uL (0.0-0.2); BASO % 0.8 % (0.0-1.0); EOS # 0.1 10^3/uL (0.0-0.5); EOS % 1.4 % (0.0-3.0); HEMATOCRIT 40.2 % (36.0-47.0); HEMOGLOBIN 12.3 g/dl (12.0-15.5); LYMPH # 2.6 10^3/uL (1.5-5.0); MEAN CORPUSCULAR HEMOGLOBIN 31.5 pg (27.0-33.0); MEAN CORPUSCULAR HGB CONC 30.6 g/dl (32.0-36.5); MEAN CORPUSCULAR VOLUME 103.1 fl (80.0-96.0); MONO # 0.5 10^3/uL (0.0-0.8); MONO % 5.6 % (0.0-5.0); NEUTROPHILS # 5.3 10^3/uL (1.5-8.5); NEUTROPHILS % 61.9 % (36.0-66.0); PLATELET COUNT, AUTOMATED 330 10^3/uL (150-450); WHITE BLOOD COUNT 8.6 10^3/uL (4.0-10.0)
[2019-03-06 17:18] LABS: ERYTHROCYTE SEDIMENTATION RATE 14 mm/hr (0-30)
== END ==
LOC: M SFHCPLAZ 11:43
PROVIDERS: ATTEND Family Medicine
DX: I26.99 Other pulmonary embolism without acute cor pulmonale (principal); K52.9 Noninfective gastroenteritis and colitis, unspecified
CPT/HCPCS: 36415; 81479; 83520; 85025; 85046; 85652; 86140; 99496; G0463

== ENCOUNTER → 2019-03-18 | Outpatient (REF) | payer MEDICARE ==
[2019-03-18 18:27] LABS: CLOSTRIDIUM DIFFICILE PCR POSITIVE (NEGATIVE)
== END ==
LOC: M SFHCPLAZ 10:14
PROVIDERS: ATTEND Family Medicine
DX: K52.9 Noninfective gastroenteritis and colitis, unspecified (principal)

== ENCOUNTER → 2019-03-30 | Outpatient (CLI) | payer MEDICARE ==
[2019-03-30 17:25] LABS: ALBUMIN 3.9 GM/DL (3.2-5.2); BLOOD UREA NITROGEN 12 MG/DL (7-18); CALCIUM LEVEL 9.7 MG/DL (8.8-10.2); CARBON DIOXIDE LEVEL 28 MEQ/L (21-32); CHLORIDE LEVEL 107 MEQ/L (98-107); CREATININE FOR GFR 0.79 MG/DL (0.55-1.30); GLOMERULAR FILTRATION RATE > 60.0 (>32); GLUCOSE, FASTING 112 MG/DL (70-100); PHOSPHORUS LEVEL 2.8 MG/DL (2.5-4.9); POTASSIUM SERUM 4.2 MEQ/L (3.5-5.1); SODIUM LEVEL 141 MEQ/L (136-145)
== END ==
LOC: M PLALAB 14:41
PROVIDERS: ATTEND Family Medicine
DX: I50.30 Unspecified diastolic (congestive) heart failure (principal)

== ENCOUNTER → 2019-04-03 | Outpatient (CLI) | payer MEDICARE ==
[~2019-04-03] MED LIST changes: +GASTROGRAFIN SOLUTION 30ML (Q9963) As Ordered ONE; +ISOVUE-370 76% 100ML VIAL (Q9967) As Ordered ONE
--- NOTE | 2019-04-03 21:30 | REP ---
Clinical: History of bilateral pulmonary emboli for. Technique: Axial contrast enhanced images from the lung bases to the pubic symphysis using oral (per protocol) and 100 ml Isovue 370 intravenous contrast material with coronal and sagittal re-formations. Delayed images of the abdomen obtained. Findings: Lung bases are essentially clear. The visualized portions of the heart and pericardium are normal / stable. Liver includes 1.5 cm cyst in the left lobe. Spleen, pancreas, and bilateral adrenal glands are normal. Evidence of prior cholecystectomy. The kidneys demonstrate age-related changes along with 1.5 cm right renal cyst. The enteric system is without obstruction or acute inflammatory process. There is a small lower abdominal wall ventral hernia containing nonobstructed loop of small bowel. Evaluation of the pelvis demonstrates collapsed bladder and evidence for prior hysterectomy along with sigmoid diverticulosis. Atherosclerotic changes of the aorta and vasculature without aneurysm or dissection. Musculoskeletal structures demonstrate significant degenerative changes along with postsurgical changes including laminectomy and posterior fixation of the lumbosacral spine. Impression: 1. No acute abdominopelvic pathology appreciated. 2. Hepatic and right renal cysts. 3. Diverticulosis without acute diverticulitis. 4. Small ventral hernia containing unobstructed loop of small bowel. 6. Chronic degenerative and postsurgical changes involving the lumbosacral spine. Electronically Signed by Izaiah Garrido MD 04/03/2019 09:21 P
== END ==
LOC: M RAD 07:27
PROVIDERS: ATTEND Family Medicine
DX: I26.99 Other pulmonary embolism without acute cor pulmonale (principal)
CPT/HCPCS: 74177; Q9963; Q9967

== ENCOUNTER 2019-05-21 16:18 | Emergency (ER) | payer MEDICARE ==
[~2019-05-21] VITALS: Ht 152.4 cm; Wt 76.0 kg
[~2019-05-21 16:18] MED LIST changes: -BISO10TA10 PO; +BISO10TA14 PO; -GASTROGRAFIN SOLUTION 30ML (Q9963) As Ordered ONE; -ISOVUE-370 76% 100ML VIAL (Q9967) As Ordered ONE; -TRAZ-163 PO; +TRAZ-257 PO
[2019-05-21 17:16] LABS: BASO % 0.2 % (0.0-1.0); EOS # 0.1 10^3/uL (0.0-0.5); EOS % 0.6 % (0.0-3.0); HEMATOCRIT 37.9 % (36.0-47.0); HEMOGLOBIN 11.8 g/dl (12.0-15.5); LYMPH # 1.5 10^3/uL (1.5-5.0); LYMPH % 13.9 % (24.0-44.0); MEAN CORPUSCULAR HEMOGLOBIN 31.6 pg (27.0-33.0); MEAN CORPUSCULAR HGB CONC 31.1 g/dl (32.0-36.5); MEAN CORPUSCULAR VOLUME 101.6 fl (80.0-96.0); MONO # 1.1 10^3/uL (0.0-0.8); MONO % 10.3 % (0.0-5.0); NEUTROPHILS # 8.1 10^3/uL (1.5-8.5); NEUTROPHILS % 74.5 % (36.0-66.0); PLATELET COUNT, AUTOMATED 237 10^3/uL (150-450); RED BLOOD COUNT 3.73 10^6/uL (4.00-5.40); WHITE BLOOD COUNT 10.8 10^3/uL (4.0-10.0)
[2019-05-21 17:27] LABS: INR 1.18; PROTHROMBIN TIME 14.7 SECONDS (11.8-14.0)
[2019-05-21 17:28] LABS: PARTIAL THROMBOPLASTIN TIME 36.2 SECONDS (25.0-38.4)
[2019-05-21 17:33] LABS: CK-MB VALUE MASS 2.2 NG/ML (<3.6); CPK CREATINE PHOSPHOKINASE 135 U/L (26-192); MB/CK RELATIVE INDEX 1.63 (< OR =4); TROPONIN I < 0.02 NG/ML (< 0.10)
--- NOTE | 2019-05-21 17:55 | REP ---
CT brain without contrast: History: CVA. Comparison head CT study February 26, 2019. 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 Bone window settings show no bony destructive lesion. There is bilateral internal carotid artery vascular calcification again noted. On soft tissue window settings, there is fairly extensive small vessel atherosclerotic changes in the periventricular white matter of the frontal and parietal lobes bilaterally. These changes are stable when compared with the February 26, 2019 study. No acute cortical infarction is seen. There is no evidence of intracranial hemorrhage. No extra-axial fluid collection or mass lesion is seen. Impression: Vascular calcification, mild diffuse atrophy and small vessel atherosclerotic changes. No acute intracranial abnormality seen. Electronically Signed by Ean Orosco MD 05/21/2019 06:22 P
--- NOTE | 2019-05-21 18:03 | REP ---
Portable chest x-ray: Single view. History: CVA. Comparison chest x-ray: February 23, 2019. Findings: Patient is status post cervical discectomy and fusion plating. There are surgical clips in the left axillary soft tissues. Monitoring electrodes are seen. The lungs are well inflated and free of infiltrate. Pleural angles are sharp. Heart size is normal. The aorta somewhat tortuous. Impression: Surgical clips in the left axilla. C-spine fusion plating. No active cardiopulmonary disease. Electronically Signed by Ean Orosco MD 05/21/2019 06:22 P
[2019-05-21 18:23] VITALS: BP 127/68
[2019-05-21 18:50] LABS: RHEUMATOID FACTOR QUANT < 10.0 IU/ML (<15.0)
[2019-05-21 19:07] LABS: ERYTHROCYTE SEDIMENTATION RATE 70 mm/hr (0-30)
[2019-05-21] MEDS ORDERED: NORC1TAB7 PO (21:00)
[2019-05-21] MEDS: NORCO, ANEXSIA 5/325MG TABLET (HYDROcodone/ACETAMINOPHEN) PO ONE ×2 (21:12→21:18)
--- NOTE | 2019-05-21 21:41 | ECGEPIP ---
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
--- NOTE | 2019-05-22 07:38 | REP ---
Right hand four views: There are calcifications in the triangular fibrocartilage and soft tissue calcifications at the radial aspect of the scaphoid ossicle at the radial aspect of the third metacarpal head. This may represent CPPD. There is joint space narrowing of the DIP articulations compatible with osteoarthritis. There is mild joint space narrowing of the PIP articulations also compatible with osteoarthritis. There is joint space narrowing of the MCP articulations with radial deviation of the digits of the index and middle fingers. This may represent a rheumatoid type arthritis. There are bone cysts at the bases of the fourth and fifth metacarpals. 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 Electronically Signed by Franki Foster MD 05/22/2019 07:29 A
== END 2019-05-21 21:23 | disposition home or self-care (01) ==
LOC: M ED 16:18
DX: F03.90 Unspecified dementia, unspecified severity, without behavioral disturbance, psychotic disturbance, mood disturbance, and anxiety (principal); M19.90 Unspecified osteoarthritis, unspecified site; I10 Essential (primary) hypertension; K21.9 Gastro-esophageal reflux disease without esophagitis; K74.60 Unspecified cirrhosis of liver; Z79.899 Other long term (current) drug therapy; Z79.01 Long term (current) use of anticoagulants

== ENCOUNTER → 2019-05-22 | Outpatient (CLI) | payer MEDICARE ==
[2019-05-22 19:14] LABS: BASO % 0.2 % (0.0-1.0); EOS # 0.1 10^3/uL (0.0-0.5); EOS % 0.5 % (0.0-3.0); HEMATOCRIT 37.7 % (36.0-47.0); HEMOGLOBIN 11.9 g/dl (12.0-15.5); LYMPH # 1.6 10^3/uL (1.5-5.0); LYMPH % 12.1 % (24.0-44.0); MEAN CORPUSCULAR HEMOGLOBIN 31.6 pg (27.0-33.0); MEAN CORPUSCULAR HGB CONC 31.6 g/dl (32.0-36.5); MEAN CORPUSCULAR VOLUME 100.3 fl (80.0-96.0); MONO # 1.6 10^3/uL (0.0-0.8); MONO % 12.6 % (0.0-5.0); NEUTROPHILS # 9.5 10^3/uL (1.5-8.5); NEUTROPHILS % 74.1 % (36.0-66.0); PLATELET COUNT, AUTOMATED 265 10^3/uL (150-450); RED BLOOD COUNT 3.76 10^6/uL (4.00-5.40); WHITE BLOOD COUNT 12.8 10^3/uL (4.0-10.0)
--- NOTE | 2019-05-22 19:24 | REP ---
LEFT KNEE, FIVE VIEWS: Five views of the left knee performed. There is no acute fracture or dislocation. There is moderate diffuse spurring. There is diffuse moderate degree of chondrocalcinosis. There is mild medial joint space narrowing. Scattered bursal calcifications are present in the suprapatellar region. There also appears to be a joint effusion. There is severe narrowing of the lateral patellofemoral joint with subchondral sclerosis. Large spur is seen in the lateral patellar facet. IMPRESSION: Arthritic changes. Diffuse chondrocalcinosis and diffuse bursal calcifications. Moderate spurring. Severe narrowing of the lateral patellofemoral joint. Electronically Signed by Franki Best MD 05/22/2019 08:25 P
--- NOTE | 2019-05-22 19:28 | REP ---
LEFT HAND, FOUR VIEWS: Four views of the left hand performed. There has been prior amputation at the level of the fourth proximal phalanx at the distal third and also at the proximal third of the 5th proximal phalanx. There is no acute fracture or dislocation. There is some shortening of the ulna, with ulnar minus variants. There is moderate diffuse chondrocalcinosis at the radiocarpal and ulnocarpal joints. Scapholunate interval appears somewhat wide, likely indicating a tear of the scapholunate ligament. There is moderate narrowing with subchondral sclerosis and spurring at the joint between the trapezium and base of first metacarpal. There is moderate narrowing of the first through the third metacarpophalangeal joints. There is moderate narrowing and mild spurring of the second and third distal interphalangeal joints. IMPRESSION: Arthritic changes as above. Suspect tear of scapholunate ligament. Electronically Signed by Franki Best MD 05/22/2019 08:25 P
[2019-05-22 19:34] LABS: ERYTHROCYTE SEDIMENTATION RATE 70 mm/hr (0-30)
[2019-05-22 19:43] LABS: ALBUMIN 3.4 GM/DL (3.2-5.2); ALT/SGPT 17 U/L (12-78); BILIRUBIN,TOTAL 0.4 MG/DL (0.2-1.0); BLOOD UREA NITROGEN 23 MG/DL (7-18); CALCIUM LEVEL 10.1 MG/DL (8.8-10.2); CARBON DIOXIDE LEVEL 25 MEQ/L (21-32); CHLORIDE LEVEL 107 MEQ/L (98-107); CHOLESTEROL LEVEL 122 MG/DL (<200); CHOLESTEROL RISK RATIO 2.178 (<5); CREATININE FOR GFR 0.79 MG/DL (0.55-1.30); GLOMERULAR FILTRATION RATE > 60.0 (>32); GLUCOSE, FASTING 125 MG/DL (70-100); HDL CHOLESTEROL 56 MG/DL (>40); LDL CHOLESTEROL 34 MG/DL (<100); NON-HDL-C 66 MG/DL; SODIUM LEVEL 137 MEQ/L (136-145); TOTAL PROTEIN 6.8 GM/DL (6.4-8.2); TRIGLYCERIDES LEVEL 158 MG/DL (<150)
[2019-05-22 19:48] LABS: PTH INTACT 130.6 PG/ML (18.5-88.0); TOTAL 25(OH) VITAMIN D 24.7 NG/ML (30.0-100.0)
[2019-05-22 19:49] LABS: VITAMIN B12 LEVEL 951 PG/ML (247-911)
[2019-05-22 19:56] LABS: HEMOGLOBIN A1c 6.3 %
== END ==
LOC: M LAB 17:10
PROVIDERS: ATTEND Nurse Practitioner Family
DX: M17.12 Unilateral primary osteoarthritis, left knee (principal); M25.462 Effusion, left knee; M19.042 Primary osteoarthritis, left hand; E78.5 Hyperlipidemia, unspecified; D72.829 Elevated white blood cell count, unspecified; A04.72 Enterocolitis due to Clostridium difficile, not specified as recurrent; D75.89 Other specified diseases of blood and blood-forming organs; E53.8 Deficiency of other specified B group vitamins; E55.9 Vitamin D deficiency, unspecified; R73.01 Impaired fasting glucose
CPT/HCPCS: 36415; 73130; 73564; 80053; 80061; 82306; 82607; 83036; 83605; 83970; 85025; 85046; 85652; 86140; 86200; 87040; G0463

== ENCOUNTER → 2019-05-24 | Outpatient (REF) | payer MEDICARE | LOC: M SFHCPLAZ 13:52 | PROVIDERS: ATTEND Nurse Practitioner Family | DX: A04.72 Enterocolitis due to Clostridium difficile, not specified as recurrent (principal) ==

== ENCOUNTER → 2019-06-04 | Outpatient (REF) | payer MEDICARE ==
[2019-06-04 16:57] LABS: BASO % 0.3 % (0.0-1.0); EOS # 0.3 10^3/uL (0.0-0.5); EOS % 1.8 % (0.0-3.0); HEMOGLOBIN 11.7 g/dl (12.0-15.5); LYMPH % 13.9 % (24.0-44.0); MEAN CORPUSCULAR HEMOGLOBIN 30.5 pg (27.0-33.0); MEAN CORPUSCULAR VOLUME 101.6 fl (80.0-96.0); MONO # 1.5 10^3/uL (0.0-0.8); MONO % 10.7 % (0.0-5.0); NEUTROPHILS # 10.3 10^3/uL (1.5-8.5); PLATELET COUNT, AUTOMATED 377 10^3/uL (150-450); RED BLOOD COUNT 3.84 10^6/uL (4.00-5.40); WHITE BLOOD COUNT 14.3 10^3/uL (4.0-10.0)
[2019-06-04 17:31] LABS: C REACTIVE PROTEIN QUANTITATIV 7.54 MG/DL (0.00-0.30); FREE T4 1.38 NG/DL (0.76-1.46); THYROID STIMULATING HORMONE 2.28 uIU/ML (0.358-3.740); URIC ACID 5.6 MG/DL (2.6-6.0)
[2019-06-04 17:41] LABS: ERYTHROCYTE SEDIMENTATION RATE 115 mm/hr (0-30)
[2019-06-07 00:06] LABS: ANA (HEP2) Positive (.); ANTINUCLEAR ANTIBODIES DIRECT Negative (Negative); CYCLIC CITRULLINATED PEPTIDE 8 units (0-19)
== END ==
LOC: M SFHCPLAZ 15:30
PROVIDERS: ATTEND Family Medicine
DX: R61 Generalized hyperhidrosis (principal)
CPT/HCPCS: 36415; 82140; 84439; 84443; 84550; 85025; 85652; 86038; 86140; 86200; 93005; G0463

== ENCOUNTER → 2019-06-05 | Outpatient (CLI) | payer MEDICARE ==
[2019-06-08 00:06] LABS: ANA (HEP2) Positive (.)
== END ==
LOC: M LAB 15:36
PROVIDERS: ATTEND Family Medicine
DX: R61 Generalized hyperhidrosis (principal)

== ENCOUNTER → 2019-07-03 | Outpatient (REF) | payer MEDICARE ==
[2019-07-04 18:48] LABS: APPEARANCE, URINE CLEAR (CLEAR); BACTERIA, URINE AUTO NEGATIVE (NEGATIVE); BILIRUBIN, URINE AUTO NEGATIVE (NEGATIVE); BLOOD, URINE BLOOD NEGATIVE (NEGATIVE); CALCIUM OXALATE CRYSTALS SMALL; COLOR, URINE YELLOW (YELLOW); GLUCOSE, URINE (UA) AUTO NEGATIVE (NEGATIVE); KETONE, URINE AUTO NEGATIVE (NEGATIVE); LEUKOCYTE ESTERASE, URINE AUTO NEGATIVE (NEGATIVE); MUCUS, URINE SMALL (NEGATIVE); NITRITE, URINE AUTO NEGATIVE (NEGATIVE); PROTEIN, URINE AUTO NEGATIVE (NEGATIVE); RBC, URINE AUTO 2 /HPF (0-3); SPECIFIC GRAVITY URINE AUTO 1.026 (1.002-1.035); SQUAMOUS EPITHELIAL CELL UR AU 0 /HPF (0-6); UROBILINOGEN, URINE AUTO 0.2 mg/dL (0.0-2.0); WBC, URINE AUTO 2 /HPF (0-3)
== END ==
LOC: M SMT 16:50
PROVIDERS: ATTEND Physician Assistant Medical
DX: R11.2 Nausea with vomiting, unspecified (principal)

== ENCOUNTER → 2019-07-23 | Outpatient (CLI) | payer MEDICARE ==
[~2019-07-23] MED LIST changes: +CYCL-707 PO; -CYCL10TA PO
--- NOTE | 2019-07-23 17:57 | REP ---
MRI BRAIN WITHOUT CONTRAST: HISTORY: Night sweats. Comparison brain CT study is from May 21, 2019. TECHNIQUE: Axial and sagittal imaging planes are utilized for T1 and T2-weighted scans. Sequences include spin-echo, fast spin echo, FLAIR, and diffusion weighted sequences. MRI FINDINGS: There is mild motion artifact. The bony calvarium is intact. Craniocervical junction and upper cervical cord appear unremarkable. Diffusion weighted scans show no evidence of acute ischemia or other cause of restricted diffusion. There is no evidence of intracranial hemorrhage. There are moderate small vessel changes in the periventricular and subcortical white matter of the supratentorial brain bilaterally. There is no evidence of cortical infarction or mass. No extra-axial fluid collection or midline shift is seen. IMPRESSION: Diffuse atrophy and extensive small vessel changes. No acute intracranial abnormality. Electronically Signed by Ean Orosco MD 07/24/2019 07:49 A
== END ==
LOC: M RAD 12:06
PROVIDERS: ATTEND Family Medicine
DX: G31.9 Degenerative disease of nervous system, unspecified (principal); R61 Generalized hyperhidrosis

== ENCOUNTER 2019-07-31 18:20 | Emergency (ER) | payer MEDICARE ==
[~2019-07-31] VITALS: Ht 154.9 cm; Wt 80.9 kg
[2019-07-31] MEDS ORDERED: CVS-161 PO (18:49)
[2019-07-31] MEDS ORDERED: VITAD1000T PO (18:49)
[2019-07-31] MEDS ORDERED: TENS1TAB2 PO (18:50)
[2019-07-31] MEDS ORDERED: OCUVCAP2 PO (18:50)
[2019-07-31] MEDS ORDERED: FLON1SPR NARES (18:50)
[2019-07-31 19:06] LABS: BASO # 0.1 10^3/uL (0.0-0.2); BASO % 0.8 % (0.0-1.0); EOS # 0.3 10^3/uL (0.0-0.5); EOS % 4.3 % (0.0-3.0); HEMATOCRIT 38.9 % (36.0-47.0); HEMOGLOBIN 12.1 g/dl (12.0-15.5); LYMPH # 3.1 10^3/uL (1.5-5.0); MEAN CORPUSCULAR HEMOGLOBIN 31.8 pg (27.0-33.0); MEAN CORPUSCULAR HGB CONC 31.1 g/dl (32.0-36.5); MEAN CORPUSCULAR VOLUME 102.1 fl (80.0-96.0); MONO # 0.5 10^3/uL (0.0-0.8); MONO % 6.8 % (0.0-5.0); NEUTROPHILS # 3.5 10^3/uL (1.5-8.5); PLATELET COUNT, AUTOMATED 259 10^3/uL (150-450); RED BLOOD COUNT 3.81 10^6/uL (4.00-5.40); WHITE BLOOD COUNT 7.5 10^3/uL (4.0-10.0)
[2019-07-31 19:32] LABS: ALBUMIN 3.9 GM/DL (3.2-5.2); ALT/SGPT 16 U/L (12-78); BILIRUBIN,DIRECT 0.1 MG/DL (0.0-0.2); BILIRUBIN,TOTAL 0.3 MG/DL (0.2-1.0); BLOOD UREA NITROGEN 22 MG/DL (7-18); C REACTIVE PROTEIN QUANTITATIV < 0.30 MG/DL (0.00-0.30); CALCIUM LEVEL 9.5 MG/DL (8.8-10.2); CARBON DIOXIDE LEVEL 29 MEQ/L (21-32); CHLORIDE LEVEL 109 MEQ/L (98-107); CREATININE FOR GFR 0.91 MG/DL (0.55-1.30); GLOMERULAR FILTRATION RATE > 60.0 (>32); GLUCOSE, FASTING 116 MG/DL (70-100); POTASSIUM SERUM 4.9 MEQ/L (3.5-5.1); SODIUM LEVEL 142 MEQ/L (136-145); TOTAL PROTEIN 6.8 GM/DL (6.4-8.2)
[2019-07-31 19:43] LABS: ERYTHROCYTE SEDIMENTATION RATE 11 mm/hr (0-30)
--- NOTE | 2019-07-31 20:57 | REPVR ---
PROCEDURE INFORMATION: Exam: US Duplex Right Upper Extremity Veins, Limited Exam date and time: 07/31/2019 8:49 PM Age: 83 years old Clinical indication: Edema, localized; Upper extremity, right; Additional info: Swelling/bruising TECHNIQUE: Imaging protocol: Real-time Duplex ultrasound of the Right Upper Extremity with 2-D ortiz scale, color Doppler flow and spectral waveform analysis with image documentation. Limited exam focused on the right upper extremity veins. COMPARISON: No relevant prior studies available. FINDINGS: Right deep veins: Unremarkable. Axillary and brachial veins are patent throughout without thrombus. Normal Doppler waveforms. Normal compressibility and/or augmentation response. Visualized internal jugular and subclavian veins are patent. Right superficial veins: Unremarkable. Visualized cephalic and basilic veins are patent without thrombus. Soft tissues: Unremarkable. IMPRESSION: No DVT of the right upper extremity. Electronically signed by: Khoi Landers On 07/31/2019 20:57:24 PM
[2019-07-31 21:30] VITALS: BP 142/78
--- NOTE | 2019-07-31 23:04 | REP ---
RIGHT FOREARM, TWO VIEWS: Two views of right forearm performed. There is no acute fracture or dislocation. There is diffuse chondrocalcinosis of the radiocarpal and ulnocarpal joints. There is mild spurring at the elbow joint. There is narrowing between the scaphoid and trapezium. IMPRESSION: Degenerative changes, as above, with no evidence of fracture or dislocation. Electronically Signed by Franki Best MD 08/01/2019 10:52 A
== END 2019-07-31 21:31 | disposition home or self-care (01) ==
LOC: M ED 18:20
DX: R23.3 Spontaneous ecchymoses (principal); M11.241 Other chondrocalcinosis, right hand; M25.721 Osteophyte, right elbow; I11.0 Hypertensive heart disease with heart failure; K21.9 Gastro-esophageal reflux disease without esophagitis; G47.33 Obstructive sleep apnea (adult) (pediatric); E78.5 Hyperlipidemia, unspecified; Z88.0 Allergy status to penicillin; Z79.899 Other long term (current) drug therapy; Z79.01 Long term (current) use of anticoagulants

== ENCOUNTER → 2019-08-02 | Outpatient (CLI) | payer MEDICARE ==
[~2019-08-02] MED LIST changes: +COLE625T PO; +CYCL5TAB PO; +D31000TA2 PO; +ESOM40CA35; +FLON1SPR NARES; +HYDR-4517 PO; -MAG400TA PO; +MAGN400T35 PO; +NEXI40GR PO; +OCUVCAP2 PO; -PANT20TA2 PO; +PANT20TA6 PO; +VANC125C3 PO; +XARE20TA PO
[2019-08-02 17:29] LABS: BASO # 0.1 10^3/uL (0.0-0.2); BASO % 0.8 % (0.0-1.0); EOS # 0.2 10^3/uL (0.0-0.5); EOS % 3.7 % (0.0-3.0); HEMATOCRIT 36.7 % (36.0-47.0); HEMOGLOBIN 11.5 g/dl (12.0-15.5); LYMPH # 2.3 10^3/uL (1.5-5.0); LYMPH % 34.8 % (24.0-44.0); MEAN CORPUSCULAR HEMOGLOBIN 31.4 pg (27.0-33.0); MEAN CORPUSCULAR HGB CONC 31.3 g/dl (32.0-36.5); MEAN CORPUSCULAR VOLUME 100.3 fl (80.0-96.0); MONO # 0.5 10^3/uL (0.0-0.8); MONO % 7.1 % (0.0-5.0); NEUTROPHILS # 3.5 10^3/uL (1.5-8.5); NEUTROPHILS % 53.3 % (36.0-66.0); PLATELET COUNT, AUTOMATED 256 10^3/uL (150-450); RED BLOOD COUNT 3.66 10^6/uL (4.00-5.40); WHITE BLOOD COUNT 6.5 10^3/uL (4.0-10.0)
[2019-08-02 18:03] LABS: FOLATE 16.1 NG/ML (>5.4)
[2019-08-07 00:06] LABS: Lyme Disease IgG/IgM Antibodie <0.91 ISR (0.00-0.90); Lyme Disease IgM Ab Quantitati <0.80 index (0.00-0.79); Methylmalonic Acid 297 nmol/L (0-378)
== END ==
LOC: M LAB 16:42
PROVIDERS: ATTEND Family Medicine
DX: L03.113 Cellulitis of right upper limb (principal)
CPT/HCPCS: 36415; 82607; 82746; 83921; 85025; 86617; G0463

== ENCOUNTER → 2019-08-09 | Outpatient (REF) | payer MEDICARE ==
[2019-08-09 15:58] LABS: BASO % 0.5 % (0.0-1.0); EOS # 0.3 10^3/uL (0.0-0.5); EOS % 3.8 % (0.0-3.0); HEMATOCRIT 35.9 % (36.0-47.0); HEMOGLOBIN 10.8 g/dl (12.0-15.5); LYMPH # 1.8 10^3/uL (1.5-5.0); LYMPH % 21.1 % (24.0-44.0); MEAN CORPUSCULAR HEMOGLOBIN 30.9 pg (27.0-33.0); MEAN CORPUSCULAR HGB CONC 30.1 g/dl (32.0-36.5); MEAN CORPUSCULAR VOLUME 102.6 fl (80.0-96.0); MONO # 0.7 10^3/uL (0.0-0.8); MONO % 8.1 % (0.0-5.0); NEUTROPHILS # 5.6 10^3/uL (1.5-8.5); NEUTROPHILS % 66.1 % (36.0-66.0); PLATELET COUNT, AUTOMATED 265 10^3/uL (150-450); WHITE BLOOD COUNT 8.4 10^3/uL (4.0-10.0)
[2019-08-09 16:35] LABS: ALBUMIN 3.9 GM/DL (3.2-5.2); ALT/SGPT 15 U/L (12-78); BILIRUBIN,TOTAL 0.6 MG/DL (0.2-1.0); BLOOD UREA NITROGEN 19 MG/DL (7-18); CALCIUM LEVEL 9.3 MG/DL (8.8-10.2); CARBON DIOXIDE LEVEL 26 MEQ/L (21-32); CHLORIDE LEVEL 110 MEQ/L (98-107); CREATININE FOR GFR 0.75 MG/DL (0.55-1.30); GLOMERULAR FILTRATION RATE > 60.0 (>32); GLUCOSE, FASTING 109 MG/DL (70-100); POTASSIUM SERUM 4.3 MEQ/L (3.5-5.1); SODIUM LEVEL 141 MEQ/L (136-145); TOTAL PROTEIN 6.6 GM/DL (6.4-8.2)
[2019-08-09 17:03] LABS: ERYTHROCYTE SEDIMENTATION RATE 26 mm/hr (0-30)
== END ==
LOC: M SFHCLERA 12:48
PROVIDERS: ATTEND Family Medicine
DX: R23.8 Other skin changes (principal)
CPT/HCPCS: 36415; 80053; 85025; 85652; 86140; G0463

== ENCOUNTER → 2019-12-14 | Outpatient (CLI) | payer MEDICARE ==
[~2019-12-14] MED LIST changes: +COLE625T; -COLE625T PO; -HYDR-4517 PO; +MAG400TA PO; -MAGN400T35 PO; -NEXI40GR PO; -VANC125C3 PO; +XARE20TA; -XARE20TA PO
[2019-12-14 17:40] LABS: BLOOD UREA NITROGEN 18 MG/DL (7-18); CREATININE FOR GFR 0.85 MG/DL (0.55-1.30); GLOMERULAR FILTRATION RATE > 60.0 (>32)
== END ==
LOC: M LAB 16:29
PROVIDERS: ATTEND Physical Medicine & Rehabilitation
DX: M51.26 Other intervertebral disc displacement, lumbar region (principal)

== ENCOUNTER → 2019-12-24 | Outpatient (CLI) | payer MEDICARE ==
[2019-12-24 13:43] LABS: BASO % 0.5 % (0.0-1.0); EOS # 0.2 10^3/uL (0.0-0.5); EOS % 3.7 % (0.0-3.0); HEMATOCRIT 39.1 % (36.0-47.0); LYMPH # 2.1 10^3/uL (1.5-5.0); LYMPH % 32.6 % (24.0-44.0); MEAN CORPUSCULAR HEMOGLOBIN 31.7 pg (27.0-33.0); MEAN CORPUSCULAR HGB CONC 30.7 g/dl (32.0-36.5); MEAN CORPUSCULAR VOLUME 103.4 fl (80.0-96.0); MONO # 0.6 10^3/uL (0.0-0.8); MONO % 9.8 % (0.0-5.0); NEUTROPHILS # 3.4 10^3/uL (1.5-8.5); NEUTROPHILS % 52.8 % (36.0-66.0); PLATELET COUNT, AUTOMATED 307 10^3/uL (150-450); RED BLOOD COUNT 3.78 10^6/uL (4.00-5.40); WHITE BLOOD COUNT 6.5 10^3/uL (4.0-10.0)
[2019-12-24 13:56] LABS: ALBUMIN 3.8 GM/DL (3.2-5.2); ALT/SGPT 19 U/L (12-78); BILIRUBIN,TOTAL 0.3 MG/DL (0.2-1.0); BLOOD UREA NITROGEN 24 MG/DL (7-18); CALCIUM LEVEL 10.3 MG/DL (8.8-10.2); CARBON DIOXIDE LEVEL 29 MEQ/L (21-32); CHLORIDE LEVEL 108 MEQ/L (98-107); FREE T4 0.89 NG/DL (0.76-1.46); GLOMERULAR FILTRATION RATE > 60.0 (>32); GLUCOSE, FASTING 113 MG/DL (70-100); POTASSIUM SERUM 4.1 MEQ/L (3.5-5.1); SODIUM LEVEL 140 MEQ/L (136-145); TOTAL PROTEIN 6.8 GM/DL (6.4-8.2)
[2019-12-24 14:02] LABS: HEMOGLOBIN A1c 5.8 %
[2019-12-24 14:25] LABS: ERYTHROCYTE SEDIMENTATION RATE 25 mm/hr (0-30)
== END ==
LOC: M PLALAB 09:53
PROVIDERS: ATTEND Physician Assistant Medical
DX: R73.01 Impaired fasting glucose (principal); K52.9 Noninfective gastroenteritis and colitis, unspecified; R61 Generalized hyperhidrosis
CPT/HCPCS: 36415; 80053; 83036; 84439; 84443; 85025; 85652; 86140; G0463

== ENCOUNTER 2020-01-03 17:54 | Emergency (ER) | payer MEDICARE ==
[~2020-01-03] VITALS: Ht 152.4 cm; Wt 75.9 kg
[~2020-01-03 17:54] MED LIST changes: -COLE625T; -CYCL5TAB PO; -ESOM40CA35; -XARE20TA
[2020-01-03] MEDS ORDERED: XARE20TA (18:07)
[2020-01-03] MEDS ORDERED: COLE625T (18:07)
[2020-01-03] MEDS ORDERED: ESOM40CA35 (18:07)
[2020-01-03] MEDS ORDERED: diazePAM 10MG/2ML SYRINGE (J3360 PER 5MG) IV ONE (18:30)
[2020-01-03] MEDS ORDERED: ISOVUE-370 76% 100ML VIAL As Ordered ONE (18:37)
[2020-01-03 18:39] LABS: BASO % 0.6 % (0.0-1.0); EOS # 0.2 10^3/uL (0.0-0.5); EOS % 2.7 % (0.0-3.0); HEMATOCRIT 37.2 % (36.0-47.0); HEMOGLOBIN 11.6 g/dl (12.0-15.5); LYMPH # 2.1 10^3/uL (1.5-5.0); LYMPH % 32.7 % (24.0-44.0); MEAN CORPUSCULAR HEMOGLOBIN 31.9 pg (27.0-33.0); MEAN CORPUSCULAR HGB CONC 31.2 g/dl (32.0-36.5); MEAN CORPUSCULAR VOLUME 102.2 fl (80.0-96.0); MONO # 0.5 10^3/uL (0.0-0.8); MONO % 8.1 % (0.0-5.0); NEUTROPHILS # 3.5 10^3/uL (1.5-8.5); NEUTROPHILS % 55.6 % (36.0-66.0); PLATELET COUNT, AUTOMATED 293 10^3/uL (150-450); RED BLOOD COUNT 3.64 10^6/uL (4.00-5.40); WHITE BLOOD COUNT 6.3 10^3/uL (4.0-10.0)
[2020-01-03 18:50] LABS: INR 1.17; PROTHROMBIN TIME 15.2 SECONDS (12.5-14.3)
[2020-01-03 18:51] LABS: PARTIAL THROMBOPLASTIN TIME 39.3 SECONDS (24.2-38.5)
--- NOTE | 2020-01-03 19:14 | REPVR ---
PROCEDURE INFORMATION: Exam: CT Cervical Spine Without Contrast Exam date and time: 01/03/2020 6:23 PM Age: 84 years old Clinical indication: Neck pain; Additional info: Severe head/neck pain TECHNIQUE: Imaging protocol: Computed tomography images of the cervical spine without contrast. Radiation optimization: All CT scans at this facility use at least one of these dose optimization techniques: automated exposure control; mA and/or kV adjustment per patient size (includes targeted exams where dose is matched to clinical indication); or iterative reconstruction. COMPARISON: No relevant prior studies available. FINDINGS: Vertebrae: 3 mm of grade 1 degenerative anterolisthesis of C2 on C3. 1-2 mm of grade 1 degenerative anterolisthesis of C3 on C4, C7 on T1 and T1 on T2; there is severe multilevel cervical facet arthropathy. Prior ACDF at C4-C5 and C5-C6 with solid osseous bridging across the disc spaces. Disc height loss and spondylosis is severe at C6-C7, [id number] elsewhere. No severe central spinal canal stenosis. Multilevel neural foraminal stenoses due to uncovertebral and facet arthropathy, in particular on the left from C4-C5 through C6-C7 and on the right at C4-C5 and C5-C6. Discs/Spinal canal/Neural foramina: See "Vertebrae" finding. Soft tissues: Unremarkable. Sinuses: Mild mucosal thickening in the dependent left sphenoid sinus. Lungs: Lung apices are normal. IMPRESSION: Severe cervical facet arthropathy as well as degenerative disc disease at C6-C7. Electronically signed by: Amy Guerrero On 01/03/2020 19:14:44 PM
--- NOTE | 2020-01-03 19:19 | REPVR ---
PROCEDURE INFORMATION: Exam: CT Head Without Contrast Exam date and time: 01/03/2020 6:23 PM Age: 84 years old Clinical indication: Pain; Headache; Additional info: Severe head/neck pain TECHNIQUE: Imaging protocol: Computed tomography of the head without contrast. Radiation optimization: All CT scans at this facility use at least one of these dose optimization techniques: automated exposure control; mA and/or kV adjustment per patient size (includes targeted exams where dose is matched to clinical indication); or iterative reconstruction. COMPARISON: CT Head without contrast 05/21/2019 4:49 PM FINDINGS: Brain: The brain demonstrates generalized volume loss. Patchy hypodensities in the deep and subcortical white matter, as before, likely representing chronic small vessel ischemic change. No evolving transcortical infarction or intracranial hemorrhage seen. Cerebral ventricles: No ventriculomegaly. Bones/joints: Unremarkable. No acute fracture. Paranasal sinuses: Mild mucosal thickening in the dependent left sphenoid sinus. No air-fluid levels. Mastoid air cells: Visualized mastoid air cells are well aerated. Soft tissues: Unremarkable. IMPRESSION: No acute intracranial abnormality seen. Electronically signed by: Amy Guerrero On 01/03/2020 19:18:53 PM
--- NOTE | 2020-01-03 19:23 | REPVR ---
PROCEDURE INFORMATION: Exam: CT Angiography Neck With Contrast Exam date and time: 01/03/2020 6:30 PM Age: 84 years old Clinical indication: Pain; Headache; Additional info: Severe headache/neck pain TECHNIQUE: Imaging protocol: Computed tomography angiography of the neck with intravenous contrast. 3D rendering (Not supervised by radiologist): MIP and/or 3D reconstructed images were created by the technologist. Radiation optimization: All CT scans at this facility use at least one of these dose optimization techniques: automated exposure control; mA and/or kV adjustment per patient size (includes targeted exams where dose is matched to clinical indication); or iterative reconstruction. Contrast material: ISOVUE 370; Contrast volume: 100 ml; Contrast route: INTRAVENOUS (IV); COMPARISON: CT Spine,cervical w/o contrast 01/03/2020 6:36:40 PM FINDINGS: Right common carotid artery: No stenosis. No dissection or occlusion. Right internal carotid artery: No stenosis of the extracranial segment. No dissection or occlusion. Right external carotid artery: No occlusion or stenosis of the origin. Right vertebral artery: No stenosis. No dissection or occlusion. Left common carotid artery: No stenosis. No dissection or occlusion. Left internal carotid artery: No stenosis of the extracranial segment. No dissection or occlusion. Left external carotid artery: No occlusion or stenosis of the origin. Left vertebral artery: No stenosis. No dissection or occlusion. Bones/joints: The cervical spine is described separately on a dedicated exam. Soft tissues: Normal. No significant soft tissue swelling. IMPRESSION: 1. No acute vascular findings in the neck. 2. 0% right ICA stenosis. 3. 0% left ICA stenosis. 4. The vertebral arteries are patent without stenoses. REFERENCES: NASCET CRITERIA. The degree of internal carotid artery stenosis is based on NASCET criteria. Normal is no stenosis. Mild is less than 50% stenosis. Moderate is 50-69% stenosis. Severe is 70% to 99% stenosis. Total occlusion is no detectable patent lumen. Electronically signed by: Amy Guerrero On 01/03/2020 19:23:24 PM
--- NOTE | 2020-01-03 19:29 | REPVR ---
PROCEDURE INFORMATION: Exam: CT Angiography Head With Contrast Exam date and time: 01/03/2020 6:23 PM Age: 84 years old Clinical indication: Pain; Headache; Additional info: Severe head/neck pain TECHNIQUE: Imaging protocol: Computed tomography angiography of the head with intravenous contrast. 3D rendering (Not supervised by radiologist): MIP and/or 3D reconstructed images were created by the technologist. Radiation optimization: All CT scans at this facility use at least one of these dose optimization techniques: automated exposure control; mA and/or kV adjustment per patient size (includes targeted exams where dose is matched to clinical indication); or iterative reconstruction. Contrast material: ISOVUE 370; Contrast volume: 100 ml; Contrast route: INTRAVENOUS (IV); COMPARISON: CT Head without contrast 05/21/2019 4:49 PM FINDINGS: ANTERIOR CIRCULATION: Right internal carotid artery: The right ICA demonstrates calcified atherosclerosis which does not contribute to stenosis. No aneurysm. Right middle cerebral artery: Unremarkable. No occlusion or significant stenosis. No aneurysm. Right anterior cerebral artery: The right anterior cerebral artery is patent. No aneurysm. Left internal carotid artery: The left ICA demonstrates calcified atherosclerosis which does not contribute to stenosis. No aneurysm. Left middle cerebral artery: Unremarkable. No occlusion or significant stenosis. No aneurysm. Left anterior cerebral artery: The left anterior cerebral artery is patent. 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 There is azygos anatomy of the ACAs. POSTERIOR CIRCULATION: Right vertebral artery: Unremarkable. No occlusion or significant stenosis. No aneurysm. Left vertebral artery: Unremarkable. No occlusion or significant stenosis. No aneurysm. Basilar artery: Unremarkable. No occlusion or significant stenosis. No aneurysm. Right posterior cerebral artery: Unremarkable. No occlusion or significant stenosis. No aneurysm. Left posterior cerebral artery: Patent. Mild segmental stenosis of the proximal left P2 segment. Brain: No definite mass, mass effect, or midline shift. Cerebral ventricles: Normal. No ventriculomegaly. Bones/joints: Unremarkable. No acute fracture. Soft tissues: Unremarkable. IMPRESSION: No major proximal vessel branch occlusion, aneurysm or arteriovenous malformation seen. Electronically signed by: Amy Guerrero On 01/03/2020 19:29:20 PM
[2020-01-03 20:00] VITALS: BP 155/81
[2020-01-03] MEDS ORDERED: CYCLOBENZAPRINE 5MG TABLET PO ONE (20:00)
[2020-01-03] MEDS ORDERED: CYCL5TAB PO (20:06)
--- NOTE | 2020-01-04 10:52 | ED PDOC ---
Post-Departure Follow-Up dr torres and dr kulkarni faxed formal report of ct c spine for fu Kitty Guo MD Jan 04, 2020 10:52
== END 2020-01-03 20:30 | disposition home or self-care (01) ==
LOC: M ED 17:54
DX: G44.209 Tension-type headache, unspecified, not intractable (principal); M50.323 Other cervical disc degeneration at C6-C7 level; I50.9 Heart failure, unspecified; K21.9 Gastro-esophageal reflux disease without esophagitis; N19 Unspecified kidney failure; F03.90 Unspecified dementia, unspecified severity, without behavioral disturbance, psychotic disturbance, mood disturbance, and anxiety; Z86.711 Personal history of pulmonary embolism
CPT/HCPCS: 70450; 70496; 70498; 72125; 80047; 85025; 85610; 85730; 96374; 99284; J3360; Q9967

== ENCOUNTER 2020-02-13 19:40 | Emergency (ER) | payer MEDICARE ==
[~2020-02-13] VITALS: Ht 154.9 cm; Wt 74.1 kg
[~2020-02-13 19:40] MED LIST changes: +COLE625T; +CYCL5TAB PO; +ESOM40CA35; +XARE20TA
[2020-02-13 21:43] LABS: BASO % 0.6 % (0.0-1.0); EOS # 0.2 10^3/uL (0.0-0.5); EOS % 2.4 % (0.0-3.0); HEMATOCRIT 37.8 % (36.0-47.0); HEMOGLOBIN 11.4 g/dl (12.0-15.5); LYMPH # 2.1 10^3/uL (1.5-5.0); LYMPH % 33.3 % (24.0-44.0); MEAN CORPUSCULAR HEMOGLOBIN 30.6 pg (27.0-33.0); MEAN CORPUSCULAR HGB CONC 30.2 g/dl (32.0-36.5); MEAN CORPUSCULAR VOLUME 101.3 fl (80.0-96.0); MONO # 0.5 10^3/uL (0.0-0.8); MONO % 7.7 % (0.0-5.0); NEUTROPHILS # 3.6 10^3/uL (1.5-8.5); NEUTROPHILS % 55.8 % (36.0-66.0); PLATELET COUNT, AUTOMATED 244 10^3/uL (150-450); RED BLOOD COUNT 3.73 10^6/uL (4.00-5.40); WHITE BLOOD COUNT 6.4 10^3/uL (4.0-10.0)
[2020-02-13 22:17] LABS: ACETAMINOPHEN LEVEL 7.4 UG/ML (10.0-30.0); ALBUMIN 3.5 GM/DL (3.2-5.2); ALT/SGPT 14 U/L (12-78); BILIRUBIN,DIRECT 0.1 MG/DL (0.0-0.2); BILIRUBIN,TOTAL 0.2 MG/DL (0.2-1.0); BLOOD UREA NITROGEN 17 MG/DL (7-18); CALCIUM LEVEL 9.5 MG/DL (8.8-10.2); CARBON DIOXIDE LEVEL 25 MEQ/L (21-32); CHLORIDE LEVEL 111 MEQ/L (98-107); CPK CREATINE PHOSPHOKINASE 79 U/L (26-192); CREATININE FOR GFR 0.78 MG/DL (0.55-1.30); ETHYL ALCOHOL (ETHANOL) < 0.003 % (0.000-0.010); GLOMERULAR FILTRATION RATE > 60.0 (>32); GLUCOSE, FASTING 103 MG/DL (70-100); MAGNESIUM LEVEL 1.6 MG/DL (1.8-2.4); PHOSPHORUS LEVEL 2.6 MG/DL (2.5-4.9); POTASSIUM SERUM 4.1 MEQ/L (3.5-5.1); SALICYLATE LEVEL 6.1 MG/DL (5.0-30.0); SODIUM LEVEL 142 MEQ/L (136-145); THYROID STIMULATING HORMONE 0.555 uIU/ML (0.358-3.740); TOTAL PROTEIN 6.4 GM/DL (6.4-8.2)
[2020-02-13 23:25] VITALS: BP 158/78
--- NOTE | 2020-02-14 14:27 | ECGEPIP ---
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
== END 2020-02-13 23:33 | disposition home or self-care (01) ==
LOC: M ED 19:40
DX: T47.1X1A Poisoning by other antacids and anti-gastric-secretion drugs, accidental (unintentional), initial encounter (principal); Y92.89 Other specified places as the place of occurrence of the external cause; F03.90 Unspecified dementia, unspecified severity, without behavioral disturbance, psychotic disturbance, mood disturbance, and anxiety; I10 Essential (primary) hypertension; K21.9 Gastro-esophageal reflux disease without esophagitis; D64.9 Anemia, unspecified; E55.9 Vitamin D deficiency, unspecified; J30.9 Allergic rhinitis, unspecified; F41.1 Generalized anxiety disorder; F32.9 Major depressive disorder, single episode, unspecified; R73.01 Impaired fasting glucose; Z88.0 Allergy status to penicillin; Z88.8 Allergy status to other drugs, medicaments and biological substances; Z88.6 Allergy status to analgesic agent; Z79.899 Other long term (current) drug therapy; Z79.01 Long term (current) use of anticoagulants
CPT/HCPCS: 80048; 80076; 82550; 83735; 84100; 84443; 85025; 93005; 93041; 99284; G0480

== ENCOUNTER → 2020-03-19 | Outpatient (CLI) | payer MEDICARE ==
--- NOTE | 2020-03-19 15:56 | REPMRS ---
Patient History The patient states she has not had a clinical breast exam in over a year. Family history of breast cancer at age 50 or over in mother, breast cancer at age 50 or over in sister. Benign excisional biopsy of the left breast. No Hormone Replacement Therapy 3D TOMOSYNTHESIS WAS PERFORMED. The [facility] lifetime risk for breast cancer is 1.3%. Volpara breast density b. Digital Woman Screen Mammo: March 19, 2020 - Exam #: [id number] Bilateral CC and MLO view(s) were taken. Technologist: Laura Benito, Technologist Prior study comparison: January 04, 2019, bilateral digital woman screen mammo performed at [facility]. January 02, 2018, bilateral digital woman screen mammo performed at [facility]. FINDINGS: There are scattered fibroglandular densities. There is a fairly symmetric fibroglandular pattern in both breasts. There has been no interval development of masses, areas of architectural distortion or clusters of microcalcifications typical of malignancy. There are few small smoothly marginated subcentimeter nodules in the left breast which remain stable. No significant changes when compared with prior studies. Assessment: BI-RADS/ACR category 2 mammogram. Benign Findings. Recommendation Routine screening mammogram of both breasts in 1 year (for women over age 40). This mammogram was interpreted with the aid of an FDA-approved computer-aided dectection system. Electronically Signed By: Franki Best MD 03/19/20 0179
--- NOTE | 2020-03-19 16:06 | DEXAMM ---
INDICATION: M81.0 OSTEOPOROSIS. COMPARISON: 01/02/2018 as well as other prior exams. TECHNIQUE: Bone density was measured using dual-energy x-ray absorptiometry (DEXA). FINDINGS: AP SPINE L1-L4 BMD 1.413 g/cm2 Young Adult T-Score 2.0 Age Matched Z-Score 3.9. LT FEMUR, TOTAL BMD 0.777 g/cm2 Young Adult T-Score -1.8 Age Matched Z-Score 0.4. LT NECK BMD 0.743 g/cm2 Young Adult T-Score -2.1 Age Matched Z-Score 0.2. RT FEMUR, TOTAL BMD 0.759 g/cm2 Young Adult T-Score -2.0 Age Matched Z-Score 0.2. RT NECK BMD 0.702 g/cm2 Young Adult T-Score -2.4 Age Matched Z-Score -0.1. IMPRESSION: There is normal bone density of the spine. There is low bone density of the left hip. There is low bone density of the right hip. The density of the spine has increased 7.3% since the initial exam on 04/13/2004. The density of the spine decreased 3.9% since most recent exam on 01/02/2018. The density of the left hip has decreased 11.8% since initial exam on 04/13/2004. The density of the left hip has decreased 2.5% since most recent exam on 01/02/2018. The density of the right hip has decreased 17.0% since the initial exam on 04/13/2004. The density of the right hip has decreased 11.3% since the most recent exam on 01/02/2018. FOLLOW-UP: Recommendation for the next bone density exam: 2 years. <Electronically signed by Franki Best > 03/19/20 [id number]
== END ==
LOC: M WHC 14:34
PROVIDERS: ATTEND Family Medicine
DX: Z12.31 Encounter for screening mammogram for malignant neoplasm of breast (principal); M81.0 Age-related osteoporosis without current pathological fracture

== ENCOUNTER → 2020-04-07 | Outpatient (REF) | payer MEDICARE ==
[2020-04-07 17:29] LABS: BASO % 0.5 % (0.0-1.0); EOS # 0.2 10^3/uL (0.0-0.5); EOS % 2.7 % (0.0-3.0); HEMATOCRIT 38.9 % (36.0-47.0); HEMOGLOBIN 11.6 g/dl (12.0-15.5); LYMPH # 1.6 10^3/uL (1.5-5.0); LYMPH % 24.4 % (24.0-44.0); MEAN CORPUSCULAR HEMOGLOBIN 30.5 pg (27.0-33.0); MEAN CORPUSCULAR HGB CONC 29.8 g/dl (32.0-36.5); MEAN CORPUSCULAR VOLUME 102.4 fl (80.0-96.0); MONO # 0.5 10^3/uL (0.0-0.8); MONO % 7.3 % (0.0-5.0); NEUTROPHILS # 4.3 10^3/uL (1.5-8.5); NEUTROPHILS % 64.8 % (36.0-66.0); PLATELET COUNT, AUTOMATED 286 10^3/uL (150-450); WHITE BLOOD COUNT 6.6 10^3/uL (4.0-10.0)
[2020-04-07 17:36] LABS: ALT/SGPT 23 U/L (12-78); BILIRUBIN,TOTAL 0.4 MG/DL (0.2-1.0); BLOOD UREA NITROGEN 19 MG/DL (7-18); CALCIUM LEVEL 9.9 MG/DL (8.8-10.2); CARBON DIOXIDE LEVEL 29 MEQ/L (21-32); CHLORIDE LEVEL 106 MEQ/L (98-107); CREATININE FOR GFR 0.76 MG/DL (0.55-1.30); GLOMERULAR FILTRATION RATE > 60.0 (>32); GLUCOSE, FASTING 111 MG/DL (70-100); POTASSIUM SERUM 4.5 MEQ/L (3.5-5.1); SODIUM LEVEL 141 MEQ/L (136-145); TOTAL PROTEIN 6.5 GM/DL (6.4-8.2)
== END ==
LOC: M SFHCPLAZ 14:42
PROVIDERS: ATTEND Physician Assistant
DX: R19.7 Diarrhea, unspecified (principal); Z23 Encounter for immunization
CPT/HCPCS: 36415; 80053; 85025; 90682; G0008; G0463

== ENCOUNTER → 2020-04-11 | Outpatient (REF) | payer MEDICARE | LOC: M SFHCPLAZ 15:36 | PROVIDERS: ATTEND Physician Assistant | DX: R19.7 Diarrhea, unspecified (principal) ==

== ENCOUNTER 2020-05-02 16:58 | Inpatient (IN) | payer MEDICARE ==
[~2020-05-02] VITALS: Ht 152.4 cm; Wt 76.1 kg
[~2020-05-02 16:58] MED LIST changes: -COLE625T; +COLE625T PO; -MAG400TA PO; +MAGN400T35 PO; -XARE20TA; +XARE20TA PO
--- OUTSIDE RECORDS SUMMARY | 2020-05-02 17:08 | CCD | Continuity of Care Document ---
Author Author Eva GONZALES PA Organization Unknown Address [address] [place] [address], it [address] [place] [address] Phone [phone] Care Team Providers Care Face Burler Name Role Phone Jorge Fischer MD AUTM [phone] Problems Active Problems Provider Date Disorder of bursa of shoulder region Ons et: 01/16/1999 Pure hypercholesterolemia Onset: 017 Social History Type Date Description Comments Sex Unknown ETOH Use Denies alcohol use Tobacco Use Start: Unknown Denies Smoking Allergies, Adverse Reactions, Alerts Active Allergies Reaction Severity Comments Date Aspirin 04/11/2015 Penicillin 04/11/2015 Cyclobenzaprine 04/11/2015 Medications Active Medications SIG Qnty Indications Ordering Provide r Date Permethrin 5% Cream Unknown Ketoconazole 2% Cream Justino Ext Aa bid Unknown Cefdinir 300mg Capsules TK 1 C PO Q 12 H For 10 Days Unknown Ra Vitamin B-12 TR 1000mcg Tablets ER Unknown Vancocin HCL 125mg Capsules Unknown Xarelto 20mg Tablets 1 by mouth every day Unknown Colesevelam HCL 625mg Tablets take three tablets by mouth twice a day with food and water maximum daily dose = 6 tablets Unknown Sleep Aid 25mg Tablets Unknown Ondansetron 4mg Tablets Dispers Unknown Tension Headache 500-65mg Tablets Unknown Tears Again Hydrate [phone] C apsules Unknown Cyclobenzaprine HCL 5mg Tablets one half to one tablet by mouth three times a day as needed spasm Unknown Biotin 2500mcg Capsules Unknown Bisoprolol Fumarate/Hydrochlorothiazide 10-6.25mg Tablets Unknown [facility] Tablets Unknown Potassium Chloride ER 10Meq Capsul es ER TK 1 C PO D Unknown Cephalexin 250mg Capsules TK 1 C PO Q 6 H For 5 Days Unknown Nitrofurantoin Monohydrate/Macrocrystals 100mg Capsules TK 1 C PO bid WF For 5 Days Unknown Prednisone 20mg Tablets TK 2 TS PO Once A Day For 7 Days Unknown Mucus Relief 600mg Tablets ER 12HR Take 2 Tablets By Mouth Twice Daily Unknown Pantoprazole Sodium 20mg Tablets D R TK 2 TS PO D Unknown Eliquis 5mg Tablets Unknown Fluad 0.5ml Leah Adm 0.5ML Im Utd Unknown Nexium 40mg Capsules DR 1 by mouth every day Unknown Crestor 40mg Tablets 1 by mouth every at bedtime Unknown Fosamax 70mg Tablets 1 tab by mouth weekly in the in the morning with water, at least 30 minutes before food, drink or other meds.sit upright Unknown 0 Furosemide 40mg Tablets 1 by mouth every day Unknown Flonase Allergy Relief 50mcg/Act Suspension 1 puff every day Unknown Potassium Chloride Delilah ER 10Meq Tablets ER Unknown Magnesium Oxide 400(241.3Mg) mg Ta blets 1 by mouth every day Unknown Ferrous Sulfate 325(65Fe) mg Table ts 1 by mouth every day Unknown Calcium 600+D [id number] Table ts 2 by mouth every day Unknown Vitamin B12 Liquid Unknown Vitamin D3 Tablets take 1 tab by mouth daily with dinner Unknown Anti-Diarrheal 2mg Capsules by mouth every day Unknown Paroxetine HCL 20mg Tablets 1 by mouth every day Unknown Triamcinolone Acetonide 0.1% Cream apply thin layer to hands and arms two times daily as needed Unknown Excedrin Extra Strength [phone] Tablets Unknown Bisoprolol Fumarate 10mg Tablets Jorge Fischer MD Hydrocodone-Acetaminophen 10-325mg Tablets TK 1 T PO Q 6 H prn. MDD 4 Tablets. Unkno wn Gabapentin 400mg Capsules TK 1 C PO tid Unknown Trazodone HCL 50mg Tablets TK 1 T PO qd hs Unknown Gabapentin 600mg Tablets T K 1 T PO bid Unknown Vitamin D 2000Unit Tablets Take 1 Tablet By Mouth Once Daily Unknown Gabapentin 800mg Tablets TK 1 T PO qd In The Mabel Unknown Sodium Chloride (Hypertonic) 5% So lution Int 1 GTT In OD qid Utd Unknown 00 Tobramycin 0.3% Solution Int 1 GTT In OD qid as Directed. Start 3 Days B Surgery Unknown Immunizations Description No Information Available Vital Signs Date Vital Result Comment 04/18/2020 3:50pm Body Temperature 96.4 F 12/14/2019 3:04pm Body Temperature 96.0 F Height 60 inches 5'0" Weight 160.25 lb BMI (Body Mass Index) 31.3 kg/m2 Results Test Acquired Date Facility Test Result H/L Range Note Laboratory test finding 12/14/2019 [facility] [address] [place] [address] (315)- - Blood Urea Nitrogen 18 mg/dL Normal 7-18 Creatinine With GFR 12/14/2019 [facility] [address] [place] [address] (315)- - Creatinine For GFR 0.85 mg/dL Normal 0.55-1.30 Glomerular Filtration Rate > 60.0 Normal >32 1 1 Units are mL/min/1.73 m2 Chronic Kidney Disease Staging per NKF: Stage I & II GFR >=60 Normal to Mildly Decreased Stage III GFR 30-59 Moderately Decreased Stage IV GFR 15-29 Severely Decreased Stage V GFR <15 Very Little GFR Left ESRD GFR <15 on MANAGER BODY Procedures Date Code Description Status 04/18/2020 Inject/Drain Joint/Bursa Major C ompleted Medical Devices Description No Information Available Encounters Type Date Location Provider Dx Diagnosis [facility] [place] [facility].12 Unilateral primary osteoarthritis, left knee Office Visit 12/31/2019 10[place] M51.36 Other intervertebral disc degeneration, lumbar region M43.16 Spondylolisthesis, lumbar re gion Office Visit 12/14/2019 3:00p [place] Eduardo Hernandez MD M51.36 Other intervertebral disc degeneration, lumbar region M47.816 Spondylosis w/o myelopathy o r radiculopathy, lumbar region M43.16 Spondylolisthesis, lumbar re gion Office Visit 12/05/2019 3[place] M47.896 Other spondylosis, lumbar region M43.16 Spondylolisthesis, lumbar re gion M51.36 Other intervertebral disc de generation, lumbar region Z98.1 Arthrodesis status Assessments Date Code Description Provider 04/18/2020 M17.12 Unilateral primary osteoarthriti s, left knee JODI Rodriguez 12/31/2019 M51.36 Other intervertebral disc degene ration, lumbar region JODI Rodriguez 12/31/2019 M43.16 Spondylolisthesis, lumbar region JODI Rodriguez 12/14/2019 M51.36 Other intervertebral disc degene ration, lumbar region Eduardo Hernandez MD 12/14/2019 M47.816 Spondylosis 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y or radiculopathy, lumbar region Eduardo Hernandez MD 12/14/2019 M43.16 Spondylolisthesis, lumbar region Eduardo Hernandez MD 12/05/2019 M47.896 Other spondylosis, lumbar region JODI Rodriguez 12/05/2019 M43.16 Spondylolisthesis, lumbar region JODI Rodriguez 12/05/2019 M51.36 Other intervertebral disc degene ration, lumbar region JODI Rodriguez 12/05/2019 Z98.1 Arthrodesis status JODI Johnson Plan of Treatment 04/18/2020 - JODI Rodriguez* M17.12 Unilateral primary osteoarthritis, left knee* Follow up:* PRN Functional Status Description No Information Available Mental Status Description No Information Available Referrals Description No Information Available
--- OUTSIDE RECORDS SUMMARY | 2020-05-02 17:08 | CCD ---
Author Author [facility] Organization [facility] Address Unknown Phone Unavailable Care Team Providers Care Mat Machine Tender Name Role Phone Jorge Fischer Unavailable PROBLEMS Type Condition ICD9-CM Code CIW46-SD Code Onset Dates Condition S tatus SNOMED Code Notes Problem Hyperlipidemia E78.5 Active 37808425 Problem Osteoporosis M81.0 Active 96419957 Problem DJD (degenerative joint disease), lumbar M47.816 Active 007545589 Problem Vitamin D deficiency E55.9 Active 20128392 Problem Hypertension I10 Active 23885997 Problem Allergic rhinitis J30.9 Active 54856694 Problem Insomnia G47.00 Active 614402299 Problem Gustatory sweating L74.519 Active 06663247 Problem Clostridium difficile colitis A04.7 Active 42 2601604 Problem Ankle arthritis M19.079 Active 351014231 Problem CTS (carpal tunnel syndrome) G56.00 Active 574 07414 Problem Diastolic CHF I50.30 Active 288114764 Problem IFG (impaired fasting glucose) R73.01 Active 3 43019306 Problem LATANYA (obstructive sleep apnea) G47.33 Active 78 788745 Problem Chronic diarrhea K52.9 Active 597851215 Problem Macrocytosis D75.89 Active 181289690 Problem B12 deficiency E53.8 Active 961051545 Problem Hx of colonic polyp Z86.010 Active 908235275 Problem Chronic depression F32.9 Active 263086693 Problem Gastroesophageal reflux disease without esophagitis K21.9 Active 998363764 Problem 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 Active 004468620 Problem Ataxia R27.0 Active 00176722 Problem Bilateral pulmonary embolism I26.99 Active 592 58321 Problem Arthritis of hand, 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 Active 0087701 05 Problem Recurrent UTI N39.0 Active 143759643 Problem 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 Active 332964378 Problem Tension headache G44.209 Active 430903879 Problem Breast cancer screening Z12.39 Active 93706854 6 Problem Iron deficiency anemia, unspecified iron deficiency an emia type D50.9 Active 61670309 Problem Leukocytosis, unspecified type D72.829 Active 1 79735934 Problem Arthritis of left hand M19.042 Active 446906871 Problem 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 0241533627762 Problem 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 Active 87835477 ALLERGIES Allergen (clinical drug ingredient) Drug/Non Drug Allergy do cumented on EMR Reaction Allergy Type Onset Date Status doxycycline Doxycycline Hyclate([facility] Code:[address]-80) ques tionable Drug Allergy Active aspirin Aspirin([facility] Code:[address]-15) Rash Drug Allergy Active zolpidem Ambien CR([facility] Code:[address]-93) headaches Drug Allergy Active Flexeril myalgia Drug Allergy Active atorvastatin Lipitor([facility] Code:[address]-05) myalgia Drug Allergy Active irbesartan Avapro([facility] Code:[address]-79) leg ache Drug Allergy Active Penicillin (For Allergies Use Only) Rash Drug Allerg y Active tizanidine Zanaflex([facility] Code:[address]-90) vertigo Drug Allergy Active ENCOUNTERS from 1935 to 2020-04-25 Encounter Location Date Provider Diagnosis [facility] Resident [address] [place] [address] 28 Mar, 2020 Jorge Minorer Diastolic CHF I50.30 IMMUNIZATIONS Vaccine Route Administration Date Status Influenza (18 yrs & older) Flublok IM Intramuscular Feb 28, 2018 Administered Influenza (18 yrs & older) Flublok IM Intramuscular Apr 07, 2020 Administered Influenza (High Dose 65 & up) IM Intramuscular Jan 01, 2015 A dministered Influenza (High Dose 65 & up) IM Intramuscular Apr 08, 2015 A dministered Influenza (High Dose 65 & up) IM Intramuscular Jan 22, 2016 A dministered Influenza (6mo & up) Fluzone IM Intramuscular Dec 18, 2009 Ad ministered Influenza (Pharmacy Given) IM Intramuscular Feb 08, 2019 Admi nistered Pneumococcal Adult 0.5mL (Pneumovax 23) IM Intramuscular Mar 24, 2018 Administered TDAP 0.5mL (Boostrix) IM Intramuscular Feb 12, 2010 Administe red Pneumococcal 0.5mL (Prevnar 13) IM Intramuscular Dec 31, 2016 Administered Influenza (6mo & up) Fluzone IM Intramuscular Jan 04, 2014 Ad ministered Influenza (6mo & up) Fluzone IM Intramuscular Dec 26, 2012 Ad ministered Influenza (6mo & up) Fluzone IM Intramuscular Jan 20, 2012 Ad ministered Influenza (6mo & up) Fluzone IM Intramuscular Dec 25, 2010 Ad ministered SOCIAL HISTORY Tobacco Use: Social History Observation Description Date Details (start date - stop date) Never Smoker Sex Assigned At : Social History Observation Description Sex Assigned At Unknown Language: Question Answer Notes Languages spoken: [place] Worship: Question Answer Notes Worship 05 Taoist Sexual Hx: Question Answer Notes Had sex in the last 12 months (vaginal, oral, or anal)? No Have you ever had an STD? No Alcohol Screening: Question Answer Notes Did you have a drink containing alcohol in the past year? No Points 0 Interpretation Negative Tobacco Use: Question Answer Notes Are you a: never smoker REASON FOR REFERRAL No Information VITAL SIGNS No information MEDICATIONS Medication SIG (Take, Route, Frequency, Duration) Notes Start Da te End Date Status Gabapentin 400 MG 1 capsule Orally twice daily for 30 Days Active Esomeprazole Magnesium 40 MG 1 tab Orally bid for 90 day(s) Active Vitamin D 2000 UNIT 1 tab Orally Once a day Active [place] 10-325 MG 1 tablet as needed Orally every 6 hrs, MDD 4-Bolla Active Cyclobenzaprine HCl 5 MG 1 tablet at bedtime as neede d Orally Once a day for 30 days Active Ankle Brace [id number] - velcro-left ankle DX: M19.079 daily for 90 day(s) July, Active Celebrex 200 MG 1 capsule with food Orally Once a day for 90 Active Bisoprolol Fumarate 10 mg 1 tablet Orally Once a day for 90 Active Welchol 625 MG 1 tablet with meals Orally Twice a day for 30 Active Tension Headache Relief 2 tablets orally twice daily Active Furosemide 40 MG 1 tablet Orally Once a day Active Paroxetine HCl 20 MG 1 tablet in the morning Orally Once a day f or 90 day(s) Active Rosuvastatin Calcium 40 MG 1 tablet Orally Once a day for 90 day(s) Active Flonase 50 MCG/ACT 2 sprays Nasally Once a day for 30 Active Hair Skin and Nails Formula Active Micro-K 10 MEQ 1 capsule Orally daily for 90 day(s) Active Cyanocobalamin 500 MCG 1 tablet Orally Once a day for 90 day(s) Active Ondansetron HCl 4 MG 1 tablet Orally every 4 hours prn nausea for 3 0 day(s) Active Rivaroxaban 20 MG 1 tablet with food Orally Once a day for 30 Days Active Artificial Tear Solution - as directed Ophthalmic Active Vancocin HCl 125 MG 1 capsule Orally QID x 14 da ys, then BID x 7 days, then Qday x 7 days, then Q3 days x 14 days for 42 days Mar, Active Ankle Lace-Up Brace - l ankle _ Daily for 90 day(s) Active PROCEDURES No Information RESULTS No Results REASON FOR VISIT refill MEDICAL (GENERAL) HISTORY Type Description Date Medical History allergic rhinitis/chronic si nusitis status post sinus surgery with Dr. Mondragon 1997 Medical History hypertension Medical History chronic MDD/ALYCIA Medical History GERD/h/o gastritis-11/2012 EG D c dilitation, hyperplastic polyp-[facility] Medical History diarrhea, chronic-idiopathic Medical History anemia 2 Fe deficiency Medical History history of melanoma excised by Dr. 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 Medical History mild AR, MR/LAE 3.8 cm/mildl y dilated aortic root/diastolic dysfunction by TTE 07/2010-[facility] Medical History R shoulder dislocation s/p mechanical fa ll-02/03/11 Medical History minimal , volume loss, 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 CT head Medical History cervical DJD s/p C6-8 ACDF 08/2013-Jocelin ico Medical History lumbar DJD Medical History diarrhea, chronic Medical History L posterior shoulder SCC in- situ-s/p currette/cryo destruction 06/2015-[facility] Medical History LATANYA, moderate-08/2016 HST c ASHLEY 14 c SaO2 85% Medical History 10 mm adeno p, single non-bl eeding sigmoid mucosal ulcer by 02/19/19 EGD/colon-R Medical History small ventral hernia containing SB loop by 03/2019 CT Medical History dementia, mild 2 MID c agita tion-07/23/19 MRI brain diffuse B atrophy, extensive Surgical History hysterectomy, total 1984 Surgical History Left ring/pinkie fingers amputation 1973 Surgical History Right TKR 2007 Surgical History tonsillectomy/adenoidectomy 1957 Surgical History sinus surgery-[facility] Surgical History D & C 1973 Surgical History bladder suspension 1993 Surgical History cholecystectomy 2003 Surgical History Carpal Tunnel Release, left 2010 Surgical History ACDF-[place] 09/12/13 Surgical History PLDF-[place]-(L2-S1 decompression, L4- S1-fusion) 08/21/14 Surgical History trigger finger release surgery-Dr. Tru ACEVEDO 10/19/17 Hospitalization History viral gastronenteritis c 2 A RF, negative CT A/P, BCX, stool infectious workup 08/2011 Hospitalization History back surgery-[facility] 09/26 015 Hospitalization History acute metabolic encephalopat hy c fall c R lateral malleolar ND fracture-Van placed in [place]-favor 2 narcotics (on HC 40 TDD from [facility]) and trazadone 50 (stopped) and UTI-UDS + opiates, CXR/CT head NAD/trazadone 50 qhs held 06/29/16- Hospitalization History LGI on apix 10 BID x 2D for B PE by 02/15/19 CTA, hgb to 8.4-sp 2u PRBCs; EGD/colon-10 mm adeno p, panlosis, mid sigmoid single mucosal ulcer c normal adjacent crypts-apix held x 7D on dc 02/17- Hospitalization History presented c increased cough/ sputum production, CTA c progresssion of B PE; therefore, + rivarox, BCX2 NG, SCX NG, RVP rhinov, -BLE DVT US 02/23-02/27/19 Goals Section No Information Health Concerns No Information MEDICAL EQUIPMENT No Information MENTAL STATUS No Information FUNCTIONAL STATUS No Information ASSESSMENTS Encounter Date Diagnosis Assessment Notes Treatment Notes Treatm ent Clinical Notes Mar, Diastolic CHF (ICD-10 - I50.30) PLAN OF TREATMENT Medication Medication Name Sig Start Date Stop Date Micro-K 10 MEQ 1 capsule Orally daily for 90 day(s) Vancocin HCl 125 MG 1 capsule Orally QID x 14 da ys, then BID x 7 days, then Qday x 7 days, then Q3 days x 14 days for 42 days Mar, Next Appt Details Provider Name:Jorge Fischer, 2020-06-10 0 1:45:00 PM, [address] [place], [address], Insurance Providers Payer Name Payer Address Payer Phone Insured Name Patient Relati onship to Insured Coverage Start Date Coverage End Date [facility] [employer] [facility] [address] [address] [facility] [id number] [phone] WALDO SCHERER self
--- OUTSIDE RECORDS SUMMARY | 2020-05-02 17:09 | CCD | Continuity of Care Document ---
Author Author Eva CURIEL DPM Organization Unknown Address [address] [place] [address], [facility] [address] [place] [address] Phone [phone] Problems Active Problems Provider Date Pain in limb Nehemiah Curiel DPM Onset: 02/11/2020 Other specified polyneuropathies Nehemiah Curiel DPM Onset: 02/11/2020 Onychomycosis Nehemiah Curiel DPM Onset: 02/11/2020 Social History Type Date Description Comments Sex Unknown ETOH Use Never used alcohol Tobacco Use Start: Unknown Patient has never smoked Allergies, Adverse Reactions, Alerts Active Allergies Reaction Severity Comments Date Penicillin V 01/30/2020 Aspirin 01/30/2020 Medications Active Medications SIG Qnty Indications Ordering Provide r Date Fluad 0.5ml Leah Adm 0.5ML Im Utd Unknown Eliquis 5mg Tablets Unknown Pantoprazole Sodium 20mg Tablets D R TK 2 TS PO D Unknown Magnesium-Oxide 400(241.3Mg) mg Ta blets TK 1 T PO bid Unknown Mucus Relief 600mg Tablets ER 12HR Take 2 Tablets By Mouth Twice Daily Unknown Xarelto 15mg Tablets Unknown Ondansetron HCL 4mg Tablets TK 1 T PO Q 4 H PRF Nausea Unknown Cefdinir 300mg Capsules TK 1 C PO bid For 7 Days Unknown Vancomycin HCL 125mg Capsules JODI Hunter Susan Gabapentin 400mg Capsules Unknown Prednisone 20mg Tablets GIBSON Lopez, Jenny Rodriguez Nitrofurantoin Monohydrate/Macrocrystals 100mg Capsules TK 1 C PO bid WF For 5 Days Unknown Cephalexin 250mg Capsules TK 1 C PO Q 6 H For 5 Days Unknown Esomeprazole Magnesium 40mg Capsules DR Amado Mathis,Jorge Xarelto 20mg Tablets Amado Mathis,Jorge Potassium Chloride ER 10Meq Capsul es ER TK 1 C PO D Unknown Triamcinolone Acetonide 0.1% Cream Apply A Thin Layer To Forehead Rash Utd For 7 Days Unkno wn Rosuvastatin Calcium 40mg Tablets TK 1 T PO qd Unknown Cyclobenzaprine HCL 5mg Tablets TK 1 To 2 TS PO tid PRF Muscle Spasms Unknown Colesevelam HCL 625mg Tablets JODI Hunter, [place] Paroxetine HCL 20mg Tablets Amado Mathis,Jorge Hydrocodone-Acetaminophen 10-325mg Tablets Unknown Fluticasone Propionate 50mcg/Act Suspension GIBSON Lopez Rose Mary Bisoprolol Fumarate 10mg Tablets Amado Mathis,Jorge Celecoxib 200mg Capsules JODI Hunter, [place] Immunizations Description No Information Available Vital Signs Date Vital Result Comment 01/30/2020 3:22pm Height 60 inches 5'0" Weight 169.00 lb BP Systolic 122 mmHg BP Diastolic 66 mmHg Heart Rate 102 /min BMI (Body Mass Index) 33.0 kg/m2 Results Description No Information Available Procedures Date Code Description Status 04/09/2020 70169 Debridement 6-10 Nails Electric Completed 01/30/2020 79186 Debridement 6-10 Nails Electric Completed Medical Devices Description No Information Available Encounters Type Date Location Provider Dx Diagnosis Office Visit 01/30/2020 3:00p [facility] Nehemiah Curiel DPM M79.676 Pain in unspecified toe(s) G62.89 Other specified polyneuropat hies B35.1 Tinea unguium Assessments Date Code Description Provider 04/09/2020 B35.1 Tinea unguium Nehemiah Curiel DPM 04/09/2020 G62.89 Other specified polyneuropathies Nehemiah Curiel DPM 01/30/2020 M79.676 Pain in unspecified toe(s) Prabhakar Curiel DPM 01/30/2020 G62.89 Other specified polyneuropathies Nehemiah Curiel DPM 01/30/2020 B35.1 Tinea unguium Nehemiah Curiel DPM Plan of Treatment Future Appointment(s):* 06/18/2020 2:45 pm - Nehemiah Curiel DPM at [facility] Functional Status Description No Information Available Mental Status Description No Information Available Referrals Description No Information Available
--- OUTSIDE RECORDS SUMMARY | 2020-05-02 17:09 | CCD ---
Author Organization Unknown Address [address] [place] [address] Phone [phone] Care Team Providers Care Floor Finisher Name Role Phone NEIL SHEARER MD 3 [phone] Allergies Code Code System Name Reaction Severity Status Onset 1191 RxNorm Aspirin Active 04/01/2015 Penicillins Active 04/01/2015 Notes: patient has a reaction to the flu shot Medications Name Status Start Date Stop Date alendronate 70 mg tablet Completed 018 B12 1 tablet daily Active Not available baclofen 10 mg tablet Completed 03/07/2018 bisoprolol fumarate 10 mg tablet Active Not available Body, Hair, Skin and Nails 1 tablet daily Active Not available cefdinir 300 mg capsule Completed 03/29/19 20 celecoxib 200 mg capsule Active Not semaj ilable Centrum Silver 1 tablet daily Active Not available cephalexin 250 mg capsule Completed 2019 Cholestyramine Light 4 gram powder for susp in a packet Complete d 01/03/2019 colesevelam 625 mg tablet Active Not av ailable cyclobenzaprine 10 mg tablet Take 1 tablet every day by oral route as needed. Completed 02/04/2020 cyclobenzaprine 5 mg tablet Completed 11/2019 Eliquis 5 mg tablet Completed 03/29/2019 esomeprazole magnesium 40 mg capsule,delayed release Active Not available Excedrin Migraine 1 tablet as needed Active Not available Fish Oil 1 tablet daily Completed 01/03/2019 Fluad 2018- 65yr up(PF)45 mcg(15 mcgx3)/0.5 mL intra muscular syringe Completed 03/29/2019 fluticasone propionate 50 mcg/actuation nasal spray,suspension A ctive Not available gabapentin 400 mg capsule TAKE 1 CAPSULE BY MOUTH THREE times DAILY Active Not available gabapentin 600 mg tablet Take 1 tablet twice a day by oral route. Completed 05/19/2018 gabapentin 800 mg tablet Take 1 tablet every day by oral route in the evening. Completed 05/19/2018 hydrocodone 10 mg-acetaminophen 325 mg t ablet Take 2 tablets twice a day by oral route as needed. Active Not available hydrocodone 5 mg-acetaminophen 325 mg tablet Completed 01/03/2019 hydrocodone-acetaminophen 325 mg-10 mg t ablet Take 1 tablet twice a day by oral route. Completed 03/07/2018 ketoconazole 2 % topical cream as needed Completed 01/03/2019 magnesium oxide 400 mg (241.3 mg magnesi um) tablet TK 1 T PO BID Completed 02/04/2020 Mucus Relief ER 600 mg tablet, extended release TAKE 2 TABLETS BY MOUTH TWICE DAILY Completed 11/2019 Nexium 20 mg capsule,delayed release Take 1 capsule every day by oral route. Completed 02/04/2020 nitrofurantoin monohydrate/macrocrystals 100 mg capsule Complete d 02/04/2020 ondansetron HCl 4 mg tablet as needed Active Not available pantoprazole 20 mg tablet,delayed release Completed 02/04/2020 paroxetine 20 mg tablet TAKE 1 TABLET BY MOUTH EVERY DAY IN THE MORNING Active Not available permethrin 5 % topical cream Completed 01/2018 potassium chloride ER 10 mEq capsule,extended release Active Not available prednisone 20 mg tablet Completed 02/04/20 20 rosuvastatin 40 mg tablet TAKE 1 TABLET BY MOUTH EVERY DAY Active Not av ailable silver sulfadiazine 1 % topical cream Completed 03/07/2018 simvastatin 20 mg tablet Take 1 tablet every day by oral route. Completed 02/04/2020 Sleep Aid (diphenhydramine) 25 mg capsul e Take 2 capsules every day by oral route. Completed 06/01/2018 tobramycin 0.3 % eye drops 1 gtt in each eye Completed 01/03/2019 trazodone 50 mg tablet Completed 9 triamcinolone acetonide 0.1 % topical cream Active Not available vancomycin 125 mg capsule Completed 2019 Vitamin D3 1 tablet daily Active Not available Xarelto 15 mg tablet Completed 03/29/2019 Xarelto 20 mg tablet TAKE 1 TABLET BY MOUTH EVERY DAY WITH FOOD Active Not available Problems Name Status Onset Date Source Spondylosis without Myelopathy Active 04/01/2015 H istory Degeneration of Lumbosacral Intervertebral Disc Active 04/01/2015 History Degeneration of Lumbar Intervertebral Disc Active 04/01 History Post-laminectomy Syndrome Active 04/01/2015 Histor y Lumbosacral Radiculopathy Active 04/01/2015 Histor y Lumbar Spondylolisthesis Active 04/01/2015 History Inflammation of Sacroiliac Joint Active 04/23/2015 History Trochanteric Tendinitis Active 08/08/2015 History Procedures Date Name Performed by 03/28/2014 Neck Surgery Information not avai lable 03/28/2014 Lumbar Spine Fusion Information not avai lable 03/28/2009 Arthroplasty of Knee Notes: right knee replacement Information not available 03/28/1988 Hysterectomy Information not avai lable 03/28/1985 Excisional Biopsy of Breast Mass Notes: left Information not available 03/28/1973 Amputation of Finger of Left Hand Inform ation not available Notes: hysterectomy 1988, breast mass ex cision 1985, 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 left- Dec 2017 01/09/2018 Results Lab Results Date Name Specimen Result Interpretation Description Value Range Status Address 11/24/2018 Drug Screen, Urine No observation recorde d. 11/24/2018 [facility] UR No observation recorded. [facility]: [address] [place] [address] 11/24/2018 Drug Screen, Urine Amphetamines: negati ve Main Office: [address] [address] [address], [place] Thc negative Main Off ice: [address] [place] Cocaine: negative Main Office: [address] [address] [address] [place] Opiates: positive Main Office: [address] [facility] [address] [place] Barbiturates: negative Main Office: [address] [facility] [address] [place] Benzodiazepines: negative Main Office: [address] [facility] [address] [place] Methamphetamine negative Main Office: [address] [facility] [address] [place] Pcp positive Main Off ice: [address] [facility] [address] [place] Mtd positive Main Off ice: [address] [facility] [address] [place] Oxy negative Main Off ice: [address] [address] [address], [place] 11/24/2018 Cyclobenzaprine, Quant, Urine U Cyclobenzaprine Ur Ql >=10 NG/mL >=10 NG/mL Final [facility]: [address] [place] [address] U Cyclobenzaprine Ur Cfm-mcnc 113 NG/m L >=10 NG/mL Final [facility]: [address] [place] [address] U Norcyclobenzapr Ur Cfm-mcnc 84 NG/mL >=10 NG/mL Final [facility]: [address] [place] [address] 11/24/2018 Drug Screen, Urine U Buprenorphine Ur Ql Cfm <1 NG/mL >=1 NG/mL Final [facility]: [address] [place] [address] U Alcohol Metabolites Ur Ql Cfm <200 N G/mL >=200 NG/mL Final [facility]: [address] [place] [address] U Ethyl Glucuronide Ur Cfm-mcnc <500 N G/mL >=500 NG/mL Final [facility]: [address] [place] [address] U Ethyl Sulfate Ur Cfm-mcnc <200 NG/mL >=200 NG/mL Final [facility]: [address] [place] [address] U Amphetamines Ur Ql Cfm <0 NG/mL >=0 NG/mL Final [facility]: [address] [place] [address] U Tapentadol Ur Ql Cfm <100 NG/mL >=10 0 NG/mL Final [facility]: [address] [place] [address] U Benzodiaz Ur Ql Cfm <50 NG/mL >=50 N G/mL Final [facility]: [address] [place] [address] U Gabapentinpregabalin Ur Ql Cfm >=5 m cg/mL >=5 mcg/mL Final [facility]: [address] [place] [address] U Gabapentin Ur Cfm-mcnc 467 mcg/mL >= 5 mcg/mL Final [facility]: [address] [place] [address] U Bze Ur Ql Cfm <50 NG/mL >=50 NG/mL F inal [facility]: [address] [place] [address] U Opiates Ur Ql Cfm >=100 NG/mL >=100 NG/mL Final [facility]: [address] [place] [address] U Dhc Ur Cfm-mcnc 812 NG/mL >=100 NG/m L Final [facility]: [address] [place] [address] U Hydrocodone Ur Cfm-mcnc 1510 NG/mL > =100 NG/mL Final [facility]: [address] [place] [address] U Norhydrocodone Ur Cfm-mcnc 3050 NG/m L >=100 NG/mL Final [facility]: [address] [place] [address] U Hydromorphone Ur Cfm-mcnc 184 NG/mL >=100 NG/mL Final [facility]: [address] [place] [address] U 6Mam Ur Ql Cfm <10 NG/mL >=10 NG/mL Final [facility]: [address] [place] [address] U Methadone Ur Ql Cfm <200 NG/mL >=200 NG/mL Final [facility]: [address] [place] [address] U Meperidine Ur Ql Cfm <100 NG/mL >=10 0 NG/mL Final [facility]: [address] [place] [address] U Fentanyl+norfentanyl Ur Ql Cfm <5 NG /mL >=5 NG/mL Final [facility]: [address] [place] [address] U Carisoprodol+meprob Ur Ql Scn <200 N G/mL >=200 NG/mL Final [facility]: [address] [place] [address] U Tramadol Ur Ql Cfm <100 NG/mL >=100 NG/mL Final [facility]: [address] [place] [address] U Cotinine Ur Ql Cfm <125 NG/mL >=125 NG/mL Final [facility]: [address] [place] [address] U ABNORMAL pH Ur 9.12 4.5 - 9.0 Final [facility]: [address] [place] [address] U Normal Creat Ur-mcnc 92.2 mg/dL 20 - 370 mg /dL Final [facility]: [address] [place] [address] 11/24/2018 Drug Screen, Urine UR Normal Hydrocodone Ur CM P 5560 NG/mL >=100 NG/mL Final [facility]: [address] [place] [address] UR Normal Gabapentin Ur CMP 467 mcg/mL >=5 mcg /mL Final [facility]: [address] [place] [address] UR Normal Cyclobenzaprine Ur CMP 198 NG/mL >=1 0 NG/mL Final [facility]: [address] [place] [address] Past Encounters 04/08/2020 Inflammation of Sacroiliac Joint; Degeneration of Lumbar Intervertebral Disc; Degeneration of Lumbosacral Intervertebral Disc; Displacement of Lumbar Intervertebral Disc without Myelopathy; Intervertebral Disc Disorder; Spondylosis without Myelopathy; Lumbosacral Spondylosis without Myelopathy; Lumbar Radiculopathy; Post-laminectomy Syndrome; Lumbar Spondylolisthesis; Greater Trochanteric Pain Syndrome; Long-term Drug Therapy; Lumbosacral Radiculopathy Maki Gastelum CLERICAL MANAGER: [address] [facility] [address], [place] [address], Ph. 03/04/2020 Inflammation of Sacroiliac Joint; Degeneration of Lumbar Intervertebral Disc; Degeneration of Lumbosacral Intervertebral Disc; Displacement of Lumbar Intervertebral Disc without Myelopathy; Intervertebral Disc Disorder; Spondylosis without Myelopathy; Lumbosacral Spondylosis without Myelopathy; Lumbar Radiculopathy; Post-laminectomy Syndrome; Lumbar Spondylolisthesis; Greater Trochanteric Pain Syndrome; Long-term Drug Therapy; Lumbosacral Radiculopathy Maki Gastelum CLERICAL MANAGER: [address] [address], [place] [address], Ph. 02/04/2020 Inflammation of Sacroiliac Joint; Degeneration of Lumbar Intervertebral Disc; Degeneration of Lumbosacral Intervertebral Disc; Displacement of Lumbar Intervertebral Disc without Myelopathy; Intervertebral Disc Disorder; Spondylosis without Myelopathy; Lumbosacral Spondylosis without Myelopathy; Lumbar Radiculopathy; Post-laminectomy Syndrome; Lumbar Spondylolisthesis; Greater Trochanteric Pain Syndrome; Long-term Drug Therapy; Lumbosacral Radiculopathy Maki Gastelum CLERICAL MANAGER: [address] [facility] [address], [place] [address], Ph. 12/19/2019 Inflammation of Sacroiliac Joint; Degeneration of Lumbar Intervertebral Disc; Degeneration of Lumbosacral Intervertebral Disc; Displacement of Lumbar Intervertebral Disc without Myelopathy; Intervertebral Disc Disorder; Spondylosis without Myelopathy; Lumbosacral Spondylosis without Myelopathy; Lumbar Radiculopathy; Post-laminectomy Syndrome; Lumbar Spondylolisthesis; Greater Trochanteric Pain Syndrome; Long-term Drug Therapy; Lumbosacral Radiculopathy Maki Gastelum CLERICAL MANAGER: [address] [facility] [address] [address], Ph. 11/07/2019 Inflammation of Sacroiliac Joint; Degeneration of Lumbar Intervertebral Disc; Degeneration of Lumbosacral Intervertebral Disc; Displacement of Lumbar Intervertebral Disc without Myelopathy; Intervertebral Disc Disorder; Spondylosis without Myelopathy; Lumbosacral Spondylosis without Myelopathy; Lumbar Radiculopathy; Post-laminectomy Syndrome; Lumbar Spondylolisthesis; Greater Trochanteric Pain Syndrome; Long-term Drug Therapy; Lumbosacral Radiculopathy Maki Gastelum CLERICAL MANAGER: [address], [place] [address], Ph. 09/26/2019 Inflammation of Sacroiliac Joint; Degeneration of Lumbar Intervertebral Disc; Degeneration of Lumbosacral Intervertebral Disc; Displacement of Lumbar Intervertebral Disc without Myelopathy; Intervertebral Disc Disorder; Spondylosis without Myelopathy; Lumbosacral Spondylosis without Myelopathy; Lumbar Radiculopathy; Post-laminectomy Syndrome; Lumbar Spondylolisthesis; Greater Trochanteric Pain Syndrome; Long-term Drug Therapy; Lumbosacral Radiculopathy Maki Gastelum CLERICAL MANAGER: [address] [facility] [address], [place] [address], Ph. 08/08/2019 Inflammation of Sacroiliac Joint; Degeneration of Lumbar Intervertebral Disc; Degeneration of Lumbosacral Intervertebral Disc; Displacement of Lumbar Intervertebral Disc without Myelopathy; Intervertebral Disc Disorder; Spondylosis without Myelopathy; Lumbosacral Spondylosis without Myelopathy; Lumbar Radiculopathy; Post-laminectomy Syndrome; Lumbar Spondylolisthesis; Greater Trochanteric Pain Syndrome; Long-term Drug Therapy; Lumbosacral Radiculopathy Maki Gastelum CLERICAL MANAGER: [address] [facility] [address] [address], Ph. 07/11/2019 Inflammation of Sacroiliac Joint; Degeneration of Lumbar Intervertebral Disc; Degeneration of Lumbosacral Intervertebral Disc; Displacement of Lumbar Intervertebral Disc without Myelopathy; Intervertebral Disc Disorder; Spondylosis without Myelopathy; Lumbosacral Spondylosis without Myelopathy; Lumbar Radiculopathy; Post-laminectomy Syndrome; Lumbar Spondylolisthesis; Greater Trochanteric Pain Syndrome; Long-term Drug Therapy; Lumbosacral Radiculopathy Maki Gastelum, CLERICAL MANAGER: [id number] [address], Ph. 05/16/2019 Inflammation of Sacroiliac Joint; Degeneration of Lumbar Intervertebral Disc; Degeneration of Lumbosacral Intervertebral Disc; Displacement of Lumbar Intervertebral Disc without Myelopathy; Intervertebral Disc Disorder; Spondylosis without Myelopathy; Lumbosacral Spondylosis without Myelopathy; Lumbar Radiculopathy; Post-laminectomy Syndrome; Lumbar Spondylolisthesis; Greater Trochanteric Pain Syndrome; Long-term Drug Therapy; Lumbosacral Radiculopathy Maki Gastelum, CLERICAL MANAGER: [id number] [address], Ph. 03/29/2019 Inflammation of Sacroiliac Joint; Degeneration of Lumbar Intervertebral Disc; Degeneration of Lumbosacral Intervertebral Disc; Displacement of Lumbar Intervertebral Disc without Myelopathy; Intervertebral Disc Disorder; Spondylosis without Myelopathy; Lumbosacral Spondylosis without Myelopathy; Lumbar Radiculopathy; Post-laminectomy Syndrome; Lumbar Spondylolisthesis; Greater Trochanteric Pain Syndrome; Long-term Drug Therapy Maki Gastelum, CLERICAL MANAGER: [id number] [address], Ph. 02/14/2019 Inflammation of Sacroiliac Joint; Degeneration of Lumbar Intervertebral Disc; Degeneration of Lumbosacral Intervertebral Disc; Displacement of Lumbar Intervertebral Disc without Myelopathy; Intervertebral Disc Disorder; Spondylosis without Myelopathy; Lumbosacral Spondylosis without Myelopathy; Lumbar Radiculopathy; Post-laminectomy Syndrome; Lumbar Spondylolisthesis; Greater Trochanteric Pain Syndrome; Long-term Drug Therapy Maki Gastelum, CLERICAL MANAGER: [address] [address], Ph. 01/03/2019 Inflammation of Sacroiliac Joint; Degeneration of Lumbar Intervertebral Disc; Degeneration of Lumbosacral Intervertebral Disc; Displacement of Lumbar Intervertebral Disc without Myelopathy; Intervertebral Disc Disorder; Spondylosis without Myelopathy; Lumbosacral Spondylosis without Myelopathy; Lumbar Radiculopathy; Post-laminectomy Syndrome; Lumbar Spondylolisthesis; Greater Trochanteric Pain Syndrome; Long-term Drug Therapy Maki Gastelum NP: [id number] [address], Ph. 12/13/2018 Inflammation of Sacroiliac Joint; Degeneration of Lumbar Intervertebral Disc; Degeneration of Lumbosacral Intervertebral Disc; Displacement of Lumbar Intervertebral Disc without Myelopathy; Intervertebral Disc Disorder; Spondylosis without Myelopathy; Lumbosacral Spondylosis without Myelopathy; Lumbar Radiculopathy; Post-laminectomy Syndrome; Lumbar Spondylolisthesis; Greater Trochanteric Pain Syndrome; Long-term Drug Therapy Tien Neves MD: [id number] [address], Ph. 11/24/2018 Inflammation of Sacroiliac Joint; Degeneration of Lumbar Intervertebral Disc; Degeneration of Lumbosacral Intervertebral Disc; Displacement of Lumbar Intervertebral Disc without Myelopathy; Intervertebral Disc Disorder; Spondylosis without Myelopathy; Lumbosacral Spondylosis without Myelopathy; Lumbar Radiculopathy; Post-laminectomy Syndrome; Lumbar Spondylolisthesis; Greater Trochanteric Pain Syndrome; Long-term Drug Therapy Maki Gastelum NP: [id number] [address], Ph. 10/25/2018 Inflammation of Sacroiliac Joint; Degeneration of Lumbar Intervertebral Disc; Degeneration of Lumbosacral Intervertebral Disc; Displacement of Lumbar Intervertebral Disc without Myelopathy; Intervertebral Disc Disorder; Spondylosis without Myelopathy; Lumbosacral Spondylosis without Myelopathy; Lumbar Radiculopathy; Post-laminectomy Syndrome; Lumbar Spondylolisthesis; Greater Trochanteric Pain Syndrome Maki Gastelum NP: [id number] [address], Ph. 09/06/2018 Inflammation of Sacroiliac Joint; Degeneration of Lumbar Intervertebral Disc; Degeneration of Lumbosacral Intervertebral Disc; Displacement of Lumbar Intervertebral Disc without Myelopathy; Intervertebral Disc Disorder; Spondylosis without Myelopathy; Lumbosacral Spondylosis without Myelopathy; Lumbar Radiculopathy; Post-laminectomy Syndrome; Lumbar Spondylolisthesis; Greater Trochanteric Pain Syndrome Maki Gastelum NP: [id number] [address], Ph. 07/26/2018 Inflammation of Sacroiliac Joint; Degeneration of Lumbar Intervertebral Disc; Degeneration of Lumbosacral Intervertebral Disc; Displacement of Lumbar Intervertebral Disc without Myelopathy; Intervertebral Disc Disorder; Spondylosis without Myelopathy; Lumbosacral Spondylosis without Myelopathy; Lumbar Radiculopathy; Post-laminectomy Syndrome; Lumbar Spondylolisthesis; Greater Trochanteric Pain Syndrome Maki Gastelum CLERICAL MANAGER: [address] [address], Ph. 07/05/2018 Post-laminectomy Syndrome; Lumbar Radiculopathy; Degeneration of Lumbar Intervertebral Disc; Degeneration of Lumbosacral Intervertebral Disc; Displacement of Lumbar Intervertebral Disc without Myelopathy; Intervertebral Disc Disorder; Spondylosis without Myelopathy; Lumbosacral Spondylosis without Myelopathy; Inflammation of Sacroiliac Joint; Lumbar Spondylolisthesis; Greater Trochanteric Pain Syndrome Tien Neves MD: [address] [address], Ph. 06/14/2018 Inflammation of Sacroiliac Joint; Degeneration of Lumbar Intervertebral Disc; Degeneration of Lumbosacral Intervertebral Disc; Displacement of Lumbar Intervertebral Disc without Myelopathy; Intervertebral Disc Disorder; Spondylosis without Myelopathy; Lumbosacral Spondylosis without Myelopathy; Lumbar Radiculopathy; Post-laminectomy Syndrome; Lumbar Spondylolisthesis; Greater Trochanteric Pain Syndrome Tien Neves MD: [id number] [address], Ph. 06/01/2018 Inflammation of Sacroiliac Joint; Degeneration of Lumbar Intervertebral Disc; Degeneration of Lumbosacral Intervertebral Disc; Displacement of Lumbar Intervertebral Disc without Myelopathy; Intervertebral Disc Disorder; Spondylosis without Myelopathy; Lumbosacral Spondylosis without Myelopathy; Lumbar Radiculopathy; Post-laminectomy Syndrome; Lumbar Spondylolisthesis; Greater Trochanteric Pain Syndrome Tien Neves MD: [address] [address], Ph. 05/19/2018 Inflammation of Sacroiliac Joint; Degeneration of Lumbar Intervertebral Disc; Degeneration of Lumbosacral Intervertebral Disc; Displacement of Lumbar Intervertebral Disc without Myelopathy; Intervertebral Disc Disorder; Spondylosis without Myelopathy; Lumbosacral Spondylosis without Myelopathy; Lumbar Radiculopathy; Post-laminectomy Syndrome; Lumbar Spondylolisthesis; Greater Trochanteric Pain Syndrome Maki Gastelum CLERICAL MANAGER: [id number] [address], Ph. 04/13/2018 Inflammation of Sacroiliac Joint; Degeneration of Lumbar Intervertebral Disc; Degeneration of Lumbosacral Intervertebral Disc; Displacement of Lumbar Intervertebral Disc without Myelopathy; Intervertebral Disc Disorder; Spondylosis without Myelopathy; Lumbosacral Spondylosis without Myelopathy; Lumbar Radiculopathy; Post-laminectomy Syndrome; Lumbar Spondylolisthesis; Greater Trochanteric Pain Syndrome Tien Neves MD: [id number] [address], Ph. 03/07/2018 Inflammation of Sacroiliac Joint; Degeneration of Lumbar Intervertebral Disc; Degeneration of Lumbosacral Intervertebral Disc; Displacement of Lumbar Intervertebral Disc without Myelopathy; Intervertebral Disc Disorder; Spondylosis without Myelopathy; Lumbosacral Spondylosis without Myelopathy; Lumbar Radiculopathy; Post-laminectomy Syndrome; Lumbar Spondylolisthesis; Greater Trochanteric Pain Syndrome Maki Gastelum CLERICAL MANAGER: [id number] [address], Ph. Social History Tobacco Smoking Status Never Smoker Vaccine List None recorded. Plan of Care Reminders Provider Appointments None recorded. Lab None recorded. Referral None recorded. Procedures None recorded. Surgeries None recorded. Imaging None recorded. Vitals 02/04/2020 03:30PM FOLLOW-UP Height Blood Pressure 5 ft 170/75 mm[Hg] 05/16/2019 01:00PM FOLLOW-UP Height Blood Pressure 5 ft 164/77 mm[Hg] 03/29/2019 03:00PM FOLLOW-UP Height Blood Pressure 5 ft 154/88 mm[Hg] 02/14/2019 03:00PM FOLLOW-UP Height Blood Pressure 5 ft 135/74 mm[Hg] 01/03/2019 02:30PM FOLLOW-UP Height Blood Pressure 5 ft 135/71 mm[Hg] 11/24/2018 10:00AM FOLLOW-UP Height Weight BMI Blood Pressure 5 ft 170 lbs 33.2 kg/m2 158/76 mm[Hg] 10/25/2018 01:30PM FOLLOW-UP Height Weight BMI Blood Pressure 5 ft 170 lbs 33.2 kg/m2 122/72 mm[Hg] 09/06/2018 01:15PM FOLLOW-UP Height Blood Pressure 5 ft 128/80 mm[Hg] 07/26/2018 03:00PM FOLLOW-UP Height Weight BMI Blood Pressure 5 ft 170 lbs 33.2 kg/m2 97/67 mm[Hg] 05/19/2018 01:15PM FOLLOW-UP Height Weight BMI Blood Pressure 5 ft 170 lbs 33.2 kg/m2 142/79 mm[Hg] 03/07/2018 01:30PM FOLLOW-UP Height Weight BMI Blood Pressure 5 ft 165 lbs 32.2 kg/m2 120/62 mm[Hg] 02/06/2018 Blood Pressure 121/78 mm[Hg] 01/09/2018 Blood Pressure 151/102 mm[Hg] 11/02/2017 Blood Pressure 108/65 mm[Hg] 10/06/2017 Blood Pressure 131/69 mm[Hg] 10/04/2017 Weight BMI Blood Pressure 166 lbs 31.48 kg/m2 189/78 mm[Hg] 09/07/2017 Blood Pressure 126/72 mm[Hg] 08/19/2017 Weight BMI Blood Pressure 166 lbs 31.48 kg/m2 104/64 mm[Hg] 07/15/2017 Weight BMI Blood Pressure 166 lbs 31.48 kg/m2 133/74 mm[Hg] 06/15/2017 Weight BMI Blood Pressure 166 lbs 31.48 kg/m2 138/71 mm[Hg] 06/06/2017 Blood Pressure 167/78 mm[Hg] 05/13/2017 Weight BMI Blood Pressure 166 lbs 31.48 kg/m2 136/65 mm[Hg] 04/22/2017 Blood Pressure 156/72 mm[Hg] 04/19/2017 Weight BMI Blood Pressure 166 lbs 31.48 kg/m2 128/59 mm[Hg] 04/01/2017 Weight BMI Blood Pressure 166 lbs 31.48 kg/m2 107/57 mm[Hg] 03/08/2017 Weight BMI Blood Pressure 166 lbs 31.48 kg/m2 124/72 mm[Hg] 02/10/2017 Blood Pressure 138/88 mm[Hg] 01/21/2017 Weight BMI Blood Pressure 162 lbs 30.72 kg/m2 120/73 mm[Hg] 12/10/2016 Blood Pressure 111/60 mm[Hg] 11/18/2016 Blood Pressure 130/56 mm[Hg] 10/27/2016 Blood Pressure 92/55 mm[Hg] 09/10/2016 Blood Pressure 120/73 mm[Hg] 06/25/2016 Blood Pressure 136/73 mm[Hg] 05/14/2016 Blood Pressure 106/60 mm[Hg] 04/05/2016 Blood Pressure 134/72 mm[Hg] 02/23/2016 Blood Pressure 107/61 mm[Hg] 01/21/2016 Blood Pressure 133/89 mm[Hg] 12/22/2015 Blood Pressure 130/75 mm[Hg] 11/10/2015 Blood Pressure 125/77 mm[Hg] 10/13/2015 Blood Pressure 130/66 mm[Hg] 09/18/2015 Blood Pressure 92/52 mm[Hg] 09/11/2015 Blood Pressure 115/63 mm[Hg] 08/27/2015 Blood Pressure 145/74 mm[Hg] 08/08/2015 Blood Pressure 139/83 mm[Hg] 07/16/2015 Blood Pressure 145/74 mm[Hg] 07/04/2015 Blood Pressure 118/71 mm[Hg] 06/20/2015 Blood Pressure 129/73 mm[Hg] 06/17/2015 Blood Pressure 110/72 mm[Hg] 06/05/2015 Blood Pressure 147/69 mm[Hg] 05/19/2015 Blood Pressure 117/65 mm[Hg] 05/07/2015 Blood Pressure 144/75 mm[Hg] 04/23/2015 Blood Pressure 127/74 mm[Hg] 04/10/2015 Blood Pressure 157/78 mm[Hg] 04/01/2015 Height Blood Pressure 5 ft 1 in 139/79 mm[Hg]
--- OUTSIDE RECORDS SUMMARY | 2020-05-02 17:09 | CCD ---
Author Author [facility] Organization [facility] Address Unknown Phone Unavailable Care Team Providers Care Repatcher Name Role Phone Kylie Haro Unavailable PROBLEMS Type Condition ICD9-CM Code [id number] Code Onset Dates Condition S tatus SNOMED Code Notes Problem Hyperlipidemia E78.5 Active 13942416 Problem Osteoporosis M81.0 Active 48493535 Problem DJD (degenerative joint disease), lumbar M47.816 Active 126481492 Problem Vitamin D deficiency E55.9 Active 92034707 Problem Hypertension I10 Active 45461098 Problem Allergic rhinitis J30.9 Active 50152688 Problem Insomnia G47.00 Active 582945306 Problem Gustatory sweating L74.519 Active 18057994 Problem Clostridium difficile colitis A04.7 Active 42 9081435 Problem Ankle arthritis M19.079 Active 404134385 Problem CTS (carpal tunnel syndrome) G56.00 Active 574 21293 Problem Diastolic CHF I50.30 Active 487494337 Problem IFG (impaired fasting glucose) R73.01 Active 3 49639486 Problem LATANYA (obstructive sleep apnea) G47.33 Active 78 280381 Problem Chronic diarrhea K52.9 Active 403373053 Problem Macrocytosis D75.89 Active 919466159 Problem B12 deficiency E53.8 Active 851265838 Problem Hx of colonic polyp Z86.010 Active 417498443 Problem Chronic depression F32.9 Active 879796916 Problem Gastroesophageal reflux disease without esophagitis K21.9 Active 078313194 Problem 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 Active 919891312 Problem Ataxia R27.0 Active 56891250 Problem Bilateral pulmonary embolism I26.99 Active 592 72008 Problem Arthritis of hand, 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 Active 2203607 05 Problem Recurrent UTI N39.0 Active 678549908 Problem 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 Active 874716994 Problem Tension headache G44.209 Active 199421847 Problem Breast cancer screening Z12.39 Active 82557443 6 Problem Iron deficiency anemia, unspecified iron deficiency an emia type D50.9 Active 47697574 Problem Leukocytosis, unspecified type D72.829 Active 1 26857338 Problem Arthritis of left hand M19.042 Active 806155741 Problem 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 5990444862700 Problem 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 Active 32455466 ALLERGIES Allergen (clinical drug ingredient) Drug/Non Drug Allergy do cumented on EMR Reaction Allergy Type Onset Date Status doxycycline Doxycycline Hyclate([facility] Code:[address]-57) ques tionable Drug Allergy Active aspirin Aspirin(ND Code:[address]-97) Rash Drug Allergy Active zolpidem Ambien CR([facility] Code:[address]-28) headaches Drug Allergy Active Flexeril myalgia Drug Allergy Active atorvastatin Lipitor([facility] Code:[address]-54) myalgia Drug Allergy Active irbesartan Avapro([facility] Code:[address]-49) leg ache Drug Allergy Active Penicillin (For Allergies Use Only) Rash Drug Allerg y Active tizanidine Zanaflex([facility] Code:[address]-32) vertigo Drug Allergy Active ENCOUNTERS from 1936 to 2020-04-16 Encounter Location Date Provider Diagnosis [facility] [address] [address] Mar, Kylie Haor IMMUNIZATIONS Vaccine Route Administration Date Status Influenza (Pharmacy Given) IM Intramuscular Feb 08, 2019 Admi nistered Influenza (18 yrs & older) Flublok IM Intramuscular Apr 07, 2020 Administered Pneumococcal 0.5mL (Prevnar 13) IM Intramuscular Dec 31, 2016 Administered Influenza (18 yrs & older) Flublok IM Intramuscular Feb 28, 2018 Administered Pneumococcal Adult 0.5mL (Pneumovax 23) IM Intramuscular Mar 24, 2018 Administered Influenza (6mo & up) Fluzone IM Intramuscular Dec 18, 2009 Ad ministered Influenza (High Dose 65 & up) IM Intramuscular Jan 22, 2016 A dministered Influenza (High Dose 65 & up) IM Intramuscular Apr 08, 2015 A dministered Influenza (High Dose 65 & up) IM Intramuscular Jan 01, 2015 A dministered Influenza (6mo & up) Fluzone IM Intramuscular Jan 04, 2014 Ad ministered TDAP 0.5mL (Boostrix) IM Intramuscular Feb 12, 2010 Administe red Influenza (6mo & up) Fluzone IM Intramuscular [...] Unknown Language: Question Answer Notes Languages spoken: Urdu Faith: Question Answer Notes Faith 05 Cheondoism Sexual Hx: Question Answer Notes Had sex [...] 1 tab Orally Once a day Active [place] 10-325 MG 1 tablet as needed Orally every 6 hrs, MDD 4-[facility] Active Cyclobenzaprine HCl 5 MG 1 tablet at bedtime as neede d Orally Once a day for 30 days Active Welchol 625 MG 1 tablet with meals Orally Twice a day for 30 Active Celebrex 200 MG 1 capsule with food Orally Once a day for 90 Active Tension Headache Relief 2 tablets orally twice daily Active Bisoprolol Fumarate 10 mg 1 tablet Orally Once a day for 90 Active Micro-K 10 MEQ 1 capsule Orally daily for 90 day(s) Active Furosemide 40 MG 1 tablet Orally Once a day Active Paroxetine HCl 20 MG 1 tablet in the morning Orally Once a day f or day(s) Active Ankle Brace Xhrzvf-ez-Tbr - velcro-left ankle DX: M19.079 daily for 90 day(s) July, Active Flonase 50 MCG/ACT 2 sprays Nasally Once a day for 30 Active Hair Skin and Nails Formula Active Vancocin HCl 125 MG 1 capsule Orally QID x 14 da ys, then BID x 7 days, then Qday x 7 days, then Q3 days x 14 days for 42 days Mar, Active Cyanocobalamin 500 MCG 1 tablet Orally Once a day for 90 day(s) Active Ondansetron HCl 4 MG 1 tablet Orally every 4 hours prn nausea for 3 0 day(s) Active Rivaroxaban 20 MG 1 tablet with food Orally Once a day for 30 Days Active Artificial Tear Solution - as directed Ophthalmic Active Rosuvastatin Calcium 40 MG 1 tablet Orally Once a day for 90 day(s) Active Ankle Lace-Up Brace - l ankle _ Daily for 90 day(s) Active PROCEDURES No Information RESULTS No Results REASON FOR VISIT Test results MEDICAL (GENERAL) HISTORY Type Description Date Medical [...] Surgical History tonsillectomy/adenoidectomy 1957 Surgical History sinus surgery-[facility] Surgical History D & C 1973 Surgical History bladder suspension 1993 Surgical History cholecystectomy 2003 Surgical History Carpal Tunnel Release, left 2010 Surgical History ACDF-[facility] 09/12/13 Surgical History PLDF-[place]-(L2-S1 decompression, L4- S1-fusion) 08/21/14 Surgical History trigger finger release surgery-Dr. Tru [facility] 10/19/17 Hospitalization History viral gastronenteritis c 2 A RF, negative CT A/P, BCX, stool infectious workup 08/2011 Hospitalization History back surgery[facility] [place] 09/26 015 Hospitalization History acute metabolic encephalopat hy c fall c R lateral malleolar ND fracture-Van placed in Cam boot-favor 2 narcotics (on HC 40 TDD from [facility]) and trazadone 50 (stopped) and UTI-UDS + [...] No Information FUNCTIONAL STATUS No Information ASSESSMENTS No Information PLAN OF TREATMENT Medication Medication Name Sig Start Date Stop Date Vancocin HCl 125 MG 1 capsule Orally QID x 14 da ys, then BID x 7 days, then Qday x 7 days, then Q3 days x 14 days for 42 days Mar, Next Appt Details Provider Name:Jorge Fischer, 2020-06-10 0 1:45:00 PM, [address] [place], [address], Insurance Providers Payer Name Payer Address Payer Phone Insured Name Patient Relati onship to Insured Coverage Start Date Coverage End Date [facility] [employer] [facility] [address] [address] [facility] [address] WALDO SCHERER self
--- OUTSIDE RECORDS SUMMARY | 2020-05-02 17:09 | CCD ---
Author Author [facility] Organization [facility] Address Unknown Phone Unavailable Care Team Providers Care Design Studio Consultant Name Role Phone Jorge Fischer Unavailable PROBLEMS Type Condition ICD9-CM Code [id number] Code Onset Dates Condition S tatus SNOMED Code Notes Problem Hyperlipidemia E78.5 Active 86496961 Problem Osteoporosis M81.0 Active 41732311 Problem DJD (degenerative joint disease), lumbar M47.816 Active 862235653 Problem Vitamin D deficiency E55.9 Active 79502393 Problem Hypertension I10 Active 54602136 Problem Allergic rhinitis J30.9 Active 15126804 Problem Insomnia G47.00 Active 275447490 Problem Gustatory sweating L74.519 Active 10627170 Problem Clostridium difficile colitis A04.7 Active 42 2128839 Problem Ankle arthritis M19.079 Active 229677830 Problem CTS (carpal tunnel syndrome) G56.00 Active 574 51478 Problem Diastolic CHF I50.30 Active 232467173 Problem IFG (impaired fasting glucose) R73.01 Active 3 54429864 Problem LATANYA (obstructive sleep apnea) G47.33 Active 78 975765 Problem Chronic diarrhea K52.9 Active 165631165 Problem Macrocytosis D75.89 Active 727539874 Problem B12 deficiency E53.8 Active 372938008 Problem Hx of colonic polyp Z86.010 Active 743393324 Problem Chronic depression F32.9 Active 040663583 Problem Gastroesophageal reflux disease without esophagitis K21.9 Active 006942268 Problem 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 Active 040301695 Problem Ataxia R27.0 Active 54411128 Problem Bilateral pulmonary embolism I26.99 Active 592 65255 Problem Arthritis of hand, 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 Active 4346288 05 Problem Recurrent UTI N39.0 Active 251660870 Problem 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 Active 404521435 Problem Tension headache G44.209 Active 755942234 Problem Breast cancer screening Z12.39 Active 53376012 6 Problem Iron deficiency anemia, unspecified iron deficiency an emia type D50.9 Active 46984268 Problem Leukocytosis, unspecified type D72.829 Active 1 90595731 Problem Arthritis of left hand M19.042 Active 048567241 Problem 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 1128949337949 Problem 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 Active 92371309 ALLERGIES Allergen (clinical drug ingredient) Drug/Non Drug Allergy do cumented on EMR Reaction Allergy Type Onset Date Status doxycycline Doxycycline Hyclate([facility] Code:[address]-65) ques tionable Drug Allergy Active aspirin Aspirin(ND Code:[address]-51) Rash Drug Allergy Active zolpidem Ambien CR([facility] Code:[address]-90) headaches Drug Allergy Active Flexeril myalgia Drug Allergy Active atorvastatin Lipitor([facility] Code:[address]-38) myalgia Drug Allergy Active irbesartan Avapro([facility] Code:[address]-08) leg ache Drug Allergy Active Penicillin (For Allergies Use Only) Rash Drug Allerg y Active tizanidine Zanaflex([facility] Code:[address]-84) vertigo Drug Allergy Active ENCOUNTERS from 1936 to 2020-04-07 Encounter Location Date Provider Diagnosis [id number] [place] [address] Mar, 021 Jorge Amado Diastolic CHF I50.30 IMMUNIZATIONS Vaccine Route Administration Date Status Influenza (18 yrs & older) Flublok IM Intramuscular Feb 28, 2018 Administered Influenza (18 yrs & older) Flublok IM Intramuscular Apr 07, 2020 Administered Influenza (High Dose 65 & up) IM Intramuscular Apr 08, 2015 A dministered Influenza (Pharmacy Given) IM Intramuscular Feb 08, 2019 Admi nistered Influenza (High Dose 65 & up) IM Intramuscular Jan 22, 2016 A dministered Influenza (6mo & up) Fluzone IM Intramuscular Dec 18, 2009 Ad ministered Influenza (High Dose 65 & up) IM Intramuscular Jan 01, 2015 A dministered Pneumococcal Adult 0.5mL (Pneumovax 23) IM Intramuscular [...] Unknown Language: Question Answer Notes Languages spoken: Gibraltarian Latter-Day: Question Answer Notes Latter-Day 05 Mormonism Sexual Hx: Question Answer Notes Had sex [...] Notes Start Da te End Date Status Flonase 50 MCG/ACT 2 sprays Nasally Once a day for 30 Active Cyanocobalamin 500 MCG 1 tablet Orally Once a day for 90 day(s) Active Celebrex 200 MG 1 capsule with food Orally Once a day for 90 Active Tension Headache Relief 2 tablets orally twice daily Active Vitamin D 2000 UNIT 1 tab Orally Once a day Active Rosuvastatin Calcium 40 MG 1 tablet Orally Once a day for 90 day(s) Active Gabapentin 400 MG 1 capsule Orally twice daily for 30 Days Active Paroxetine HCl 20 MG 1 tablet in the morning Orally Once a day f or 90 day(s) Active Ankle Brace Jcpbio-qo-Ghb - velcro-left ankle DX: M19.079 daily for 90 day(s) July, Active [place] 10-325 MG 1 tablet as needed Orally every 6 hrs, MDD 4-Bolla Active Artificial Tear Solution - as directed Ophthalmic Active Bisoprolol Fumarate 10 mg 1 tablet Orally Once a day for 90 Active Welchol 625 MG 1 tablet with meals Orally Twice a day for 30 Active Ankle Lace-Up Brace - l ankle _ Daily for 90 day(s) Active Ondansetron HCl 4 MG 1 tablet Orally every 4 hours prn nausea for 3 0 day(s) Active Micro-K 10 MEQ 1 capsule Orally daily for 90 day(s) Active Cyclobenzaprine HCl 5 MG 1 tablet at bedtime as neede d Orally Once a day for 30 days Active Furosemide 40 MG 1 tablet Orally Once a day Active Rivaroxaban 20 MG 1 tablet with food Orally Once a day for 30 Days Active Esomeprazole Magnesium 40 MG 1 tab Orally bid for 90 day(s) Active PROCEDURES No Information RESULTS No Results REASON FOR VISIT potassium MEDICAL (GENERAL) HISTORY Type Description Date Medical [...] deficiency Medical History history of gastritis by [facility] 2004 EGD-[facility]/history of PUD/GERD Medical History adenomatous polyp by [facility] copy August 2008, diverticulosis 04/2012-[facility] Medical History [...] Surgical History tonsillectomy/adenoidectomy 1957 Surgical History sinus surgery-[facility] Surgical History D & C 1973 Surgical History bladder suspension 1993 Surgical History cholecystectomy 2003 Surgical History Carpal Tunnel Release, left 2009 Surgical History [facility] 09/12/13 Surgical History PLDF-[place]-(L2-S1 decompression, L4- S1-fusion) 08/21/14 Surgical History trigger finger release surgery-Dr. Tru [facility] 10/19/17 Hospitalization History viral gastronenteritis c 2 A RF, negative CT A/P, BCX, stool infectious workup 08/2011 Hospitalization History back surgery-[facility] 09/26 015 Hospitalization History acute metabolic encephalopat hy c fall c R lateral malleolar ND fracture-Van placed in Cam boot-favor 2 narcotics (on HC 40 TDD from [facility]) and trazadone 50 (stopped) and UTI-UDS + [...] CHF (ICD-10 - I50.30) PLAN OF TREATMENT Next Appt Details Provider Name:Jorge Fischer, 2020-06-10 0 1:45:00 PM, [address] [place], [address], Insurance Providers Payer Name Payer Address Payer Phone Insured Name Patient Relati onship to Insured Coverage Start Date Coverage End Date [facility] [address] [address] [facility] [address] [phone] WALDO SCHERER self
--- OUTSIDE RECORDS SUMMARY | 2020-05-02 17:09 | CCD ---
Author Author [facility] Organization [facility] Address Unknown Phone Unavailable Care Team Providers Care Taping Foreman Name Role Phone Kylie Haro Unavailable PROBLEMS Type Condition ICD9-CM Code LAY53-FP Code Onset Dates Condition S tatus SNOMED Code Notes Problem Hyperlipidemia E78.5 Active 47136855 Problem Osteoporosis M81.0 Active 67458160 Problem DJD (degenerative joint disease), lumbar M47.816 Active 300164100 Problem Vitamin D deficiency E55.9 Active 50056791 Problem Hypertension I10 Active 96130729 Problem Allergic rhinitis J30.9 Active 45937757 Problem Insomnia G47.00 Active 953391496 Problem Gustatory sweating L74.519 Active 19054876 Problem Clostridium difficile colitis A04.7 Active 42 0296291 Problem Ankle arthritis M19.079 Active 125306480 Problem CTS (carpal tunnel syndrome) G56.00 Active 574 90913 Problem Diastolic CHF I50.30 Active 552282468 Problem IFG (impaired fasting glucose) R73.01 Active 3 36946264 Problem LATANYA (obstructive sleep apnea) G47.33 Active 78 401178 Problem Chronic diarrhea K52.9 Active 828081729 Problem Macrocytosis D75.89 Active 745207691 Problem B12 deficiency E53.8 Active 731208960 Problem Hx of colonic polyp Z86.010 Active 036022225 Problem Chronic depression F32.9 Active 175205558 Problem Gastroesophageal reflux disease without esophagitis K21.9 Active 782955949 Problem 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 Active 140152117 Problem Ataxia R27.0 Active 17619887 Problem Bilateral pulmonary embolism I26.99 Active 592 38046 Problem Arthritis of hand, 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 Active 7875351 05 Problem Recurrent UTI N39.0 Active 307262817 Problem 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 Active 664125974 Problem Tension headache G44.209 Active 389545680 Problem Breast cancer screening Z12.39 Active 30159499 6 Problem Iron deficiency anemia, unspecified iron deficiency an emia type D50.9 Active 86006354 Problem Leukocytosis, unspecified type D72.829 Active 1 90229855 Problem Arthritis of left hand M19.042 Active 510616150 Problem 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 3585993595093 Problem 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 Active 44276938 ALLERGIES Allergen (clinical drug ingredient) Drug/Non Drug Allergy do cumented on EMR Reaction Allergy Type Onset Date Status doxycycline Doxycycline Hyclate([facility] Code:[address]-21) ques tionable Drug Allergy Active aspirin Aspirin([facility] Code:[address]-39) Rash Drug Allergy Active zolpidem Ambien CR([facility] Code:[address]-62) headaches Drug Allergy Active Flexeril myalgia Drug Allergy Active atorvastatin Lipitor([facility] Code:[address]-01) myalgia Drug Allergy Active irbesartan Avapro([facility] Code:[address]-59) leg ache Drug Allergy Active Penicillin (For Allergies Use Only) Rash Drug Allerg y Active tizanidine Zanaflex([facility] Code:[address]-25) vertigo Drug Allergy Active ENCOUNTERS from 1935 to 2020-04-11 Encounter Location Date Provider Diagnosis [address] [address] Mar, Kylie Haro Diarrhea, unspecified type R19.7 ; Encou nter for immunization Z23 ; Hx of Clostridium difficile infection Z86.19 and Chronic diarrhea K52.9 IMMUNIZATIONS Vaccine Route Administration Date Status Influenza (18 yrs & older) Flublok IM Intramuscular Feb 28, 2018 Administered Influenza (18 yrs & older) Flublok IM Intramuscular Apr 07, 2020 Administered Influenza (High Dose 65 & up) IM Intramuscular Apr 08, 2015 A dministered Influenza (High Dose 65 & up) IM Intramuscular Jan 22, 2016 A dministered Influenza (Pharmacy Given) IM Intramuscular Feb 08, 2019 Admi nistered Influenza (6mo & up) Fluzone IM Intramuscular [...] Unknown Language: Question Answer Notes Languages spoken: Kyrgyz Yazdanism: Question Answer Notes Yazdanism 05 Amish Sexual Hx: Question Answer Notes Had sex in the last 12 months (vaginal, oral, or anal)? No Have you ever had an STD? No Alcohol Screening: Question Answer Notes Did you have a drink containing alcohol in the past year? No Points 0 Interpretation Negative Tobacco Use: Question Answer Notes Are you a: never smoker REASON FOR REFERRAL No Information VITAL SIGNS Weight 171 lbs Mar, Height 62 in Mar, BMI 31.27 kg/m2 Mar, Heart Rate 80 /min Mar, Respiratory Rate 18 /min Mar, Temperature 97.5 degrees Fahrenheit Mar, Oximetry 95 Mar, Blood pressure systolic 132 mm Hg Mar, Blood pressure diastolic 60 mm Hg Mar, MEDICATIONS Medication SIG (Take, Route, Frequency, Duration) Notes Start Da te End Date Status Cyclobenzaprine HCl 5 MG 1 tablet at bedtime as neede d Orally Once a day for 30 days Active Gabapentin 400 MG 1 capsule Orally twice daily for 30 Days Active Celebrex 200 MG 1 capsule with food Orally Once a day for 90 Active Paroxetine HCl 20 MG 1 tablet in the morning Orally Once a day f or 90 day(s) Active Vitamin D 2000 UNIT 1 tab Orally Once a day Active Welchol 625 MG 1 tablet with meals Orally Twice a day for 30 Active Ondansetron HCl 4 MG 1 tablet Orally every 4 hours prn nausea for 3 0 day(s) Active Tension Headache Relief 2 tablets orally twice daily Active Bisoprolol Fumarate 10 mg 1 tablet Orally Once a day for 90 Active Micro-K 10 MEQ 1 capsule Orally daily for 90 day(s) Active Cyanocobalamin 500 MCG 1 tablet Orally Once a day for 90 day(s) Active Furosemide 40 MG 1 tablet Orally Once a day Active Ankle Brace Shazau-wf-Yzg - velcro-left ankle DX: M19.079 daily for 90 day(s) July, Active Ankle Lace-Up Brace - l ankle _ Daily for 90 day(s) Active Rivaroxaban 20 MG 1 tablet with food Orally Once a day for 30 Days Active [place] 10-325 MG 1 tablet as needed Orally every 6 hrs, MDD 4-Bolla Active Flonase 50 MCG/ACT 2 sprays Nasally Once a day for 30 Active Hair Skin and Nails Formula Active Artificial Tear Solution - as directed Ophthalmic Active Rosuvastatin Calcium 40 MG 1 tablet Orally Once a day for 90 day(s) Active Esomeprazole Magnesium 40 MG 1 tab Orally bid for 90 day(s) Active PROCEDURES from 1936 to 2020-04-11 Procedure Date Ordered Result Body Site Immunization: Flublok Quadrivalent (18 years & older) 0.5mL IM (Influenza) 2020-04-07 N/A RESULTS Component Value Reference Range CBC with Differential Reviewed date:04/08/2020 15:52:31 Interpretation: Performing Lab:[facility]ly [facility], [facility] [address] [facility] [address] , ,[place] [address] WHITE BLOOD COUNT 6.6 4.0-10.0 RED BLOOD COUNT 3.80 4.00-5.40 HEMOGLOBIN 11.6 12.0-15.5 HEMATOCRIT 38.9 36.0-47.0 MEAN CORPUSCULAR VOLUME 102.4 80.0-96.0 MEAN CORPUSCULAR HEMOGLOBIN 30.5 27.0-33.0 MEAN CORPUSCULAR HGB CONC 29.8 32.0-36.5 RED CELL DISTRIBUTION WIDTH 12.6 11.5-14.5 PLATELET COUNT, AUTOMATED 286 150-450 NEUTROPHILS % 64.8 36.0-66.0 LYMPH % 24.4 24.0-44.0 MONO % 7.3 0.0-5.0 EOS % 2.7 0.0-3.0 BASO % 0.5 0.0-1.0 NEUTROPHILS # 4.3 1.5-8.5 LYMPH # 1.6 1.5-5.0 MONO # 0.5 0.0-0.8 EOS # 0.2 0.0-0.5 BASO # 0.0 0.0-0.2 Comprehensive Metabolic Profile (CMP) Reviewed date:04/08/2020 09:32:27 Interpretation: Performing Lab:[facility], [facility] [address] [facility] [id number] , ,[place] [address] GLUCOSE, FASTING 111 70-100 BLOOD UREA NITROGEN 19 7-18 CREATININE FOR GFR 0.76 0.55-1.30 GLOMERULAR FILTRATION RATE > 60.0 >32 SODIUM LEVEL 141 136-145 POTASSIUM SERUM 4.5 3.5-5.1 CHLORIDE LEVEL 106 98-107 CARBON DIOXIDE LEVEL 29 21-32 CALCIUM LEVEL 9.9 8.8-10.2 AST/SGOT 13 7-37 ALT/SGPT 23 12-78 ALKALINE PHOSPHATASE 62 45-117 BILIRUBIN,TOTAL 0.4 0.2-1.0 TOTAL PROTEIN 6.5 6.4-8.2 ALBUMIN 4.0 3.2-5.2 ALBUMIN/GLOBULIN RATIO 1.6 1.2-2.2 REASON FOR VISIT diarrhea x weeks on /off MEDICAL (GENERAL) HISTORY Type Description Date Medical History allergic rhinitis/chronic si nusitis status post sinus surgery with Dr. Mondragon 1997 Medical History hypertension Medical History chronic MDD/ALYCIA Medical History GERD/h/o gastritis-11/2012 EG D c dilitation, hyperplastic polyp-[facility] Medical History diarrhea, chronic-idiopathic Medical History anemia 2 Fe deficiency Medical History history of melanoma excised by Dr. oRdriguez 1977 Medical History impaired fasting glucose Medical [...] Medical History cervical DJD s/p C6-8 ACDF 08/2013[place] Medical History lumbar DJD Medical History [...] Surgical History tonsillectomy/adenoidectomy 1957 Surgical History sinus surgery[facility] Surgical History D & C 1973 Surgical History bladder suspension 1993 Surgical History cholecystectomy 2003 Surgical History Carpal Tunnel Release, left 2009 Surgical History ACDF-[place] 09/12/13 Surgical History PLDF-[place]-(L2-S1 decompression, L4- S1-fusion) 08/21/14 Surgical History trigger finger release surgery-Dr. Ott 10/19/17 Hospitalization History viral gastronenteritis c 2 A RF, negative CT A/P, BCX, stool infectious workup 08/2011 Hospitalization History [facility] [place] 09/26 015 Hospitalization History acute metabolic encephalopat [...] Treatment Notes Treatm ent Clinical Notes Mar, Diarrhea, unspecified type (ICD-10 - R19.7) Mar, Encounter for immunization (ICD-10 - Z23) Mar, Hx of Clostridium difficile infection (ICD-10 - Z86.19) Mar, Chronic diarrhea (ICD-10 - K52.9) PLAN OF TREATMENT Treatment Notes Test Name Order Date GASTROINTESTINAL GI PANEL (GIPANEL) 2020-04-11 Next Appt Details Provider Name:Jorge Fischer, 2020-06-10 0 1:45:00 PM, [address] [place], [address], Insurance Providers Payer Name Payer Address Payer Phone Insured Name Patient Relati onship to Insured Coverage Start Date Coverage End Date [facility] [employer] [address] [address] [facility] [address] WALDO SCHERER
--- OUTSIDE RECORDS SUMMARY | 2020-05-02 17:09 | CCD ---
Author Author [facility] Organization [facility] Address Unknown Phone Unavailable Care Team Providers Care Materials Planning Manager Name Role Phone Jorge Fischer Unavailable PROBLEMS Type Condition ICD9-CM Code DGO63-FM Code Onset Dates Condition S tatus SNOMED Code Notes Problem Hyperlipidemia E78.5 Active 93613954 Problem Osteoporosis M81.0 Active 54168645 Problem DJD (degenerative joint disease), lumbar M47.816 Active 845673362 Problem Vitamin D deficiency E55.9 Active 03154489 Problem Hypertension I10 Active 23762797 Problem Allergic rhinitis J30.9 Active 86931789 Problem Insomnia G47.00 Active 790722566 Problem Gustatory sweating L74.519 Active 53453012 Problem Clostridium difficile colitis A04.7 Active 42 3748090 Problem Ankle arthritis M19.079 Active 516189003 Problem CTS (carpal tunnel syndrome) G56.00 Active 574 86222 Problem Diastolic CHF I50.30 Active 097748597 Problem IFG (impaired fasting glucose) R73.01 Active 3 14886710 Problem LATANYA (obstructive sleep apnea) G47.33 Active 78 539184 Problem Chronic diarrhea K52.9 Active 422644712 Problem Macrocytosis D75.89 Active 758746633 Problem B12 deficiency E53.8 Active 458818387 Problem Hx of colonic polyp Z86.010 Active 751993807 Problem Chronic depression F32.9 Active 114851097 Problem Gastroesophageal reflux disease without esophagitis K21.9 Active 180584941 Problem 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 Active 339846413 Problem Ataxia R27.0 Active 79896029 Problem Bilateral pulmonary embolism I26.99 Active 592 85189 Problem Arthritis of hand, 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 Active 5033343 05 Problem Recurrent UTI N39.0 Active 954502044 Problem 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 Active 826980151 Problem Tension headache G44.209 Active 630934095 Problem Breast cancer screening Z12.39 Active 92082697 6 Problem Iron deficiency anemia, unspecified iron deficiency an emia type D50.9 Active 97915276 Problem Leukocytosis, unspecified type D72.829 Active 1 79632653 Problem Arthritis of left hand M19.042 Active 808046068 Problem 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 4451015025790 Problem 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 Active 12112002 ALLERGIES Allergen (clinical drug ingredient) Drug/Non Drug Allergy do cumented on EMR Reaction Allergy Type Onset Date Status doxycycline Doxycycline Hyclate([facility] Code:[address]-10) ques tionable Drug Allergy Active aspirin Aspirin([facility] Code:[address]-50) Rash Drug Allergy Active zolpidem Ambien CR([facility] Code:[address]-04) headaches Drug Allergy Active Flexeril myalgia Drug Allergy Active atorvastatin Lipitor([facility] Code:[address]-17) myalgia Drug Allergy Active irbesartan Avapro([facility] Code:[address]-17) leg ache Drug Allergy Active Penicillin (For Allergies Use Only) Rash Drug Allerg y Active tizanidine Zanaflex([facility] Code:[address]-65) vertigo Drug Allergy Active ENCOUNTERS from 1936 to 2020-04-07 Encounter Location Date Provider Diagnosis [address] [address] Mar, 021 Jorge Fischer IMMUNIZATIONS Vaccine Route Administration Date Status Influenza [...] Unknown Language: Question Answer Notes Languages spoken: Faroese Confucianist: Question Answer Notes Confucianist 05 Mormonism Sexual Hx: Question Answer Notes [...] f or 90 day(s) Active Ankle Brace Rnxgpo-kr-Lrh - velcro-left ankle DX: M19.079 daily for 90 day(s) July, Active [place] 10-325 MG 1 tablet as needed Orally [...] Information RESULTS No Results REASON FOR VISIT bisoprolol MEDICAL (GENERAL) HISTORY Type Description Date Medical [...] deficiency Medical History history of gastritis by Aprrandy l 2004 EGD-[facility]/history of PUD/GERD Medical History adenomatous polyp by Frankly Chatos copy August 2008, diverticulosis 04/2012-[place] Medical History [...] Surgical History tonsillectomy/adenoidectomy 1957 Surgical History sinus surgery-[facility] Surgical History D & C 1973 Surgical History bladder suspension 1993 Surgical History cholecystectomy 2003 Surgical History Carpal Tunnel Release, left 2009 Surgical History ACDF-[place] 09/12/13 Surgical History PLDF-[place]-(L2-S1 decompression, L4- S1-fusion) 08/21/14 Surgical History trigger finger release surgery-Dr. Tru ACEVEDO 10/19/17 Hospitalization History viral gastronenteritis c 2 A RF, negative CT A/P, BCX, stool infectious workup 08/2011 Hospitalization History back surgery-[facility] 09/26 015 Hospitalization History acute metabolic [...] Information ASSESSMENTS No Information PLAN OF TREATMENT Next Appt Details Provider Name:Jorge Fischer, 2020-06-10 0 1:45:00 PM, [facility] [place], [address], Insurance Providers Payer Name Payer Address Payer Phone Insured Name Patient Relati onship to Insured Coverage Start Date Coverage End Date [facility] [address] [address] [facility] [address] [phone] WALDO SCHERER self
--- OUTSIDE RECORDS SUMMARY | 2020-05-02 17:09 | CCD | Continuity of Care Document ---
Author Author [facility]CU[facility] Organization Unknown Address [address] [place] [address], it e [address] [place] [address] Phone [phone] Care Team Providers Care Boat Officer Name Role Phone Jorge Fischer MD AUTM [phone] Problems Active Problems Provider Date Disorder of [...] Headache 500-65mg Tablets Unknown Tears Again Hydrate [phone] C apsules Unknown Cyclobenzaprine HCL 5mg Tablets [...] by mouth every day Unknown Calcium 600+D [phone] Table ts 2 by mouth every day Unknown Vitamin B12 Liquid Unknown Vitamin D3 Tablets take 1 tab by mouth daily with dinner Unknown Anti-Diarrheal 2mg Capsules by mouth every day Unknown Paroxetine HCL 20mg Tablets 1 by mouth every day Unknown Triamcinolone Acetonide 0.1% Cream apply thin layer to hands and arms two times daily as needed Unknown Excedrin Extra Strength [phone] Tablets Unknown Bisoprolol Fumarate 10mg Tablets Jorge [...] H/L Range Note Laboratory test finding 12/14/2019 [facility] [address] [place] [address] (315)- - Blood Urea Nitrogen 18 mg/dL Normal 7-18 Creatinine With GFR 12/14/2019 [facility] [address] [place] [address] (315)- - Creatinine For GFR 0.85 mg/dL Normal 0.55-1.30 Glomerular Filtration Rate > 60.0 Normal >32 1 1 Units are mL/min/1.73 m2 Chronic Kidney Disease Staging per NKF: Stage I & II GFR >=60 Normal to Mildly Decreased Stage III GFR 30-59 Moderately Decreased Stage IV GFR 15-29 Severely Decreased Stage V GFR <15 Very Little GFR Left ESRD GFR <15 on MANAGER CORE Procedures Date Code Description Status 04/18/2020 87943 Inject/Drain Joint/Bursa Major C ompleted 10/22/2019 64479 X-Ray Spine Lumbosacral Complete W/Oblique 4 Views Completed Medical Devices Description No Information Available Encounters Type Date Location Provider Dx Diagnosis Office Visit [place]17.12 Unilateral primary osteoarthritis, left knee Office Visit 12/31/2019 10:40a JODI Holden M51.36 Other intervertebral disc degeneration, lumbar region M43.16 Spondylolisthesis, lumbar re gion Office Visit 12/14/2019 3:00p [place] Eduardo Hernandez MD M51.36 Other intervertebral disc degeneration, lumbar region M47.816 Spondylosis w/o myelopathy o r radiculopathy, lumbar region M43.16 Spondylolisthesis, lumbar re gion Office Visit 12/05/2019 3:[place] M47.896 Other spondylosis, lumbar region M43.16 Spondylolisthesis, lumbar re gion M51.36 Other intervertebral disc de generation, lumbar region Z98.1 Arthrodesis status Office Visit 10/22/2019 2:30p JODI Holden M19.011 Primary osteoarthritis, 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 Low back pain M70.62 Trochanteric bursitis, left hip Z96.642 Presence of left artificial hip joint Z98.1 Arthrodesis status Assessments Date Code Description [...] Rodriguez 12/05/2019 Z98.1 Arthrodesis status JODI Johnson 10/22/2019 M19.011 Primary osteoarthritis, right sh oulder JODI Rodriguez 10/22/2019 M54.5 Low back pain JODI Rodriguez 10/22/2019 M70.62 Trochanteric bursitis, left hip JODI Rodriguez 10/22/2019 Z96.642 Presence of left artificial hip joint JODI Rodriguez 10/22/2019 Z98.1 Arthrodesis status JODI Johnson Plan of Treatment 04/18/2020 - JODI Rodriguez* M17.12 Unilateral primary osteoarthritis, left knee* Follow up:* PRN Functional Status Description No Information Available Mental Status Description No Information Available Referrals Refer to Dr Reason for Referral Status Appt Date Shamar Amezcua Pac PT ALLOWED EVAL THEN NEEDS AUTH TO PT DEPT NT Created [facility] [facility] [address] [place] [address] [phone]
--- OUTSIDE RECORDS SUMMARY | 2020-05-02 17:09 | CCD ---
Author Author [facility] Organization [facility] Address Unknown Phone Unavailable Care Team Providers Care Endoscopy Support Specialist Name Role Phone Jorge Fischer Unavailable PROBLEMS Type Condition ICD9-CM Code [id number] Code Onset Dates Condition S tatus SNOMED Code Notes Problem Hyperlipidemia E78.5 Active 44227479 Problem Osteoporosis M81.0 Active 29088339 Problem DJD (degenerative joint disease), lumbar M47.816 Active 266624257 Problem Vitamin D deficiency E55.9 Active 35737155 Problem Hypertension I10 Active 88022952 Problem Allergic rhinitis J30.9 Active 22870979 Problem Insomnia G47.00 Active 209212294 Problem Gustatory sweating L74.519 Active 34245420 Problem Clostridium difficile colitis A04.7 Active 42 2458199 Problem Ankle arthritis M19.079 Active 274554336 Problem CTS (carpal tunnel syndrome) G56.00 Active 574 52204 Problem Diastolic CHF I50.30 Active 099262604 Problem IFG (impaired fasting glucose) R73.01 Active 3 39800256 Problem LATANYA (obstructive sleep apnea) G47.33 Active 78 107253 Problem Chronic diarrhea K52.9 Active 836526644 Problem Macrocytosis D75.89 Active 288812130 Problem B12 deficiency E53.8 Active 494399734 Problem Hx of colonic polyp Z86.010 Active 327027832 Problem Chronic depression F32.9 Active 630304714 Problem Gastroesophageal reflux disease without esophagitis K21.9 Active 301583420 Problem 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 Active 510278591 Problem Ataxia R27.0 Active 12908595 Problem Bilateral pulmonary embolism 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.99 Active 592 73904 Problem Arthritis of hand, 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 Active 0862660 05 Problem Recurrent UTI N39.0 Active 248804713 Problem 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 Active 798527500 Problem Tension headache G44.209 Active 095164677 Problem Breast cancer screening Z12.39 Active 98298876 6 Problem Iron deficiency anemia, unspecified iron deficiency an emia type D50.9 Active 50214421 Problem Leukocytosis, unspecified type D72.829 Active 1 76083027 Problem Arthritis of left hand M19.042 Active 883079964 Problem 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 3416014116239 Problem 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 Active 36801886 ALLERGIES Allergen (clinical drug ingredient) Drug/Non Drug Allergy do cumented on EMR Reaction Allergy Type Onset Date Status doxycycline Doxycycline Hyclate([facility] Code:[address]-48) ques tionable Drug Allergy Active aspirin Aspirin(ND Code:[address]-51) Rash Drug Allergy Active zolpidem Ambien CR([facility] Code:[address]-53) headaches Drug Allergy Active Flexeril myalgia Drug Allergy Active atorvastatin Lipitor(NDC Code:[address]-93) myalgia Drug Allergy Active irbesartan Avapro([facility] Code:[address]-24) leg ache Drug Allergy Active Penicillin (For Allergies Use Only) Rash Drug Allerg y Active tizanidine Zanaflex([facility] Code:[address]-84) vertigo Drug Allergy Active ENCOUNTERS from 1936 to 2020-04-05 Encounter Location Date Provider Diagnosis [address] [address] Mar, 021 Jorge Fischer IMMUNIZATIONS Vaccine Route Administration Date Status Influenza (18 yrs & older) Flublok IM Intramuscular Feb 28, 2018 Administered Influenza (High Dose 65 & up) [...] Unknown Language: Question Answer Notes Languages spoken: Malagasy Jehovah'S Witness: Question Answer Notes Jehovah'S Witness 05 Mandaen Sexual Hx: Question Answer Notes Had sex [...] Notes Start Da te End Date Status Artificial Tear Solution - as directed Ophthalmic Active [place] 10-325 MG 1 tablet as needed Orally every 6 hrs, MDD 4-Bolla Active Ankle Brace Xgtxpl-ln-Eax - velcro-left ankle DX: M19.079 daily for 90 day(s) July, Active Rosuvastatin Calcium 40 MG 1 tablet Orally Once a day for 90 day(s) Active Vitamin D 2000 UNIT 1 tab Orally Once a day Active Paroxetine HCl 20 MG 1 tablet in the morning Orally Once a day f or 90 day(s) Active Ondansetron HCl 4 MG 1 tablet Orally every 4 hours prn nausea for 3 0 day(s) Active Ankle Lace-Up Brace - l ankle _ Daily for 90 day(s) Active Bisoprolol Fumarate 10 mg 1 tablet Orally Once a day for 90 Active Cyclobenzaprine HCl 5 MG 1 tablet at bedtime as neede d Orally Once a day for 30 days Active Rivaroxaban 20 MG 1 tablet with food Orally Once a day for 30 Days Active Flonase 50 MCG/ACT 2 sprays Nasally Once a day for 30 Active Esomeprazole Magnesium 40 MG 1 tab Orally bid for 90 day(s) Active Celebrex 200 MG 1 capsule with food Orally Once a day for 90 Active Welchol 625 MG 1 tablet with meals Orally Twice a day for 30 Active Furosemide 40 MG 1 tablet Orally Once a day Active Tension Headache Relief 2 tablets orally twice daily Active Micro-K 10 MEQ 1 capsule Orally daily for 90 day(s) Active Cyanocobalamin 500 MCG 1 tablet Orally Once a day for 90 day(s) Active Gabapentin 400 MG 1 capsule Orally twice daily for 30 Days Active PROCEDURES No Information RESULTS No Results REASON FOR VISIT diarrhea MEDICAL (GENERAL) HISTORY Type Description Date Medical [...] history of gastritis by Amaury harris 2004 EGD-[facility]/history of PUD/GERD Medical History adenomatous polyp by [...] History cervical DJD s/p C6-8 ACDF 08/2013-Jocelin estes Medical History lumbar DJD Medical History diarrhea, [...] Surgical History tonsillectomy/adenoidectomy 1957 Surgical History sinus surgery-[facility] Surgical History D & C 1973 Surgical History bladder suspension 1993 Surgical History cholecystectomy 2003 Surgical History Carpal Tunnel Release, left 2009 Surgical History ACDF-[place] 09/12/13 Surgical History PLDF-[place]-(L2-S1 decompression, L4- S1-fusion) 08/21/14 Surgical History trigger finger release surgery-Dr. Tru ACEVEDO 10/19/17 Hospitalization History viral gastronenteritis c 2 A RF, negative CT A/P, BCX, stool infectious workup 08/2011 Hospitalization History back surgery-[facility] 09/26 015 Hospitalization History acute metabolic encephalopat [...] Medication Name Sig Start Date Stop Date Cyclobenzaprine HCl 5 MG 1 tablet at bedtime as neede d Orally Once a day for 30 days Micro-K 10 MEQ 1 capsule Orally daily for 90 day(s) Esomeprazole Magnesium 40 MG 1 tab Orally bid for 90 day(s) Paroxetine HCl 20 MG 1 tablet in the morning Orally Once a day f or 90 day(s) Rosuvastatin Calcium 40 MG 1 tablet Orally Once a day for 90 day (s) Welchol 625 MG 1 tablet with meals Orally Twice a day for 30 Celebrex 200 MG 1 capsule with food Orally Once a day for 90 Flonase 50 MCG/ACT 2 sprays Nasally Once a day for 30 Next Appt Details Provider Name:Kylie Haro, 2021-0 04-07 02:00:00 PM, [address] [place] [address], [id number], Insurance Providers Payer Name Payer Address Payer Phone Insured Name Patient Relati onship to Insured Coverage Start Date Coverage End Date [facility] [employer] [facility] [address] [address] [facility] [id number] WALDO SCHERER
--- OUTSIDE RECORDS SUMMARY | 2020-05-02 17:10 | CCD ---
Author Organization Unknown Address [address] [place] [address] Phone [phone] Care Team Providers Care Funeral Workers Name Role Phone NEIL SHEARER MD 3 [phone] Allergies Code Code System Name Reaction Severity [...] available cefdinir 300 mg capsule Completed 03/29/19 celecoxib 200 mg capsule Active Not semaj [...] release Completed 02/04/2020 paroxetine 20 mg tablet Active Not avai lable permethrin 5 % topical cream Completed 01/2018 potassium chloride ER 10 mEq capsule,extended release Active Not available prednisone 20 mg tablet Completed 02/04/20 20 rosuvastatin 40 mg tablet TK 1 T PO QD Active Not available silver sulfadiazine 1 % topical cream Completed [...] tablet Completed 03/29/2019 Xarelto 20 mg tablet Active Not availab le Problems Name Status Onset Date Source Spondylosis [...] Screen, Urine No observation recorde d. 11/24/2018 [employer] Report UR No observation recorded. [employer]: [address] [place] [address] 11/24/2018 Drug Screen, Urine Amphetamines: negati ve Main Office: [address] [address] [address], [place] Thc negative Main Off ice: [address] [facility] [address] [place] Cocaine: negative Main Office: [address] [address] [address] [place] Opiates: positive Main Office: [address] [address] [address] [place] Barbiturates: negative Main Office: [address] [address] [address] [place] Benzodiazepines: negative Main Office: [address] [address] [address] [place] Methamphetamine negative Main Office: [address] [facility] [address] [place] Pcp positive Main Off ice: [address] [facility] [address] [place] Mtd positive Main Off ice: [address] [facility] [address] [place] Oxy negative Main Off ice: [address] [address] [address], [place] 11/24/2018 Cyclobenzaprine, Quant, Urine U Cyclobenzaprine Ur Ql >=10 NG/mL >=10 NG/mL Final [facility] [facility]: [address] [place] [address] U Cyclobenzaprine Ur Cfm-mcnc 113 NG/m L >=10 NG/mL Final [employer]: [address] [place] [address] U Norcyclobenzapr Ur Cfm-mcnc 84 NG/mL >=10 NG/mL Final [employer]: [address] [place] [address] 11/24/2018 Drug Screen, Urine U Buprenorphine Ur Ql Cfm <1 NG/mL >=1 NG/mL Final [employer]: [address] [place] [address] U Alcohol Metabolites Ur Ql Cfm <200 N G/mL >=200 NG/mL Final [employer]: [address] [place] [address] U Ethyl Glucuronide Ur Cfm-mcnc <500 N G/mL >=500 NG/mL Final [employer]: [address] [place] [address] U Ethyl Sulfate Ur Cfm-mcnc <200 NG/mL >=200 NG/mL Final [employer]: [address] [place] [address] U Amphetamines Ur Ql Cfm <0 NG/mL >=0 NG/mL Final [employer]: [address] [place] [address] U Tapentadol Ur Ql Cfm <100 NG/mL >=10 0 NG/mL Final [employer]: [address] [place] [address] U Benzodiaz Ur Ql Cfm <50 NG/mL >=50 N G/mL Final [employer]: [address] [place] [address] U Gabapentinpregabalin Ur Ql Cfm >=5 m cg/mL >=5 mcg/mL Final [employer]: [address] [place] [address] U Gabapentin Ur Cfm-mcnc 467 mcg/mL >= 5 mcg/mL Final [employer]: [address] [place] [address] U Bze Ur Ql Cfm <50 NG/mL >=50 NG/mL F inal [employer]: [address] [place] [address] U Opiates Ur Ql Cfm >=100 NG/mL >=100 NG/mL Final [employer]: [address] [place] [address] U Dhc Ur Cfm-mcnc 812 NG/mL >=100 NG/m L Final [employer]: [address] [place] [address] U Hydrocodone Ur Cfm-mcnc 1510 NG/mL > =100 NG/mL Final [employer]: [address] [place] [address] U Norhydrocodone Ur Cfm-mcnc 3050 NG/m L >=100 NG/mL Final [employer]: [address] [place] [address] U Hydromorphone Ur Cfm-mcnc 184 NG/mL >=100 NG/mL Final [employer]: [address] [place] [address] U 6Mam Ur Ql Cfm <10 NG/mL >=10 NG/mL Final [employer]: [address] [place] [address] U Methadone Ur Ql Cfm <200 NG/mL >=200 NG/mL Final [employer]: [address] [place] [address] U Meperidine Ur Ql Cfm <100 NG/mL >=10 0 NG/mL Final [employer]: [address] [place] [address] U Fentanyl+norfentanyl Ur Ql Cfm <5 NG /mL >=5 NG/mL Final [employer]: [address] [place] [address] U Carisoprodol+meprob Ur Ql Scn <200 N G/mL >=200 NG/mL Final [employer]: [address] [place] [address] U Tramadol Ur Ql Cfm <100 NG/mL >=100 NG/mL Final [employer]: [address] [place] [address] U Cotinine Ur Ql Cfm <125 NG/mL >=125 NG/mL Final [employer]: [address] [place] [address] U ABNORMAL pH Ur 9.12 4.5 - 9.0 Final [employer]: [address] [place] [address] U Normal Creat Ur-mcnc 92.2 mg/dL 20 - 370 mg /dL Final [employer]: [address] [place] [address] 11/24/2018 Drug Screen, Urine UR Normal Hydrocodone Ur CM P 5560 NG/mL >=100 NG/mL Final [employer]: [address] [place] [address] UR Normal Gabapentin Ur CMP 467 mcg/mL >=5 mcg /mL Final [employer]: [address] [place] [address] UR Normal Cyclobenzaprine Ur CMP 198 NG/mL >=1 0 NG/mL Final [employer]: [address] [place] [address] Past Encounters 03/04/2020 Inflammation of Sacroiliac Joint; Degeneration of Lumbar Intervertebral Disc; Degeneration of Lumbosacral Intervertebral Disc; Displacement of Lumbar Intervertebral Disc without Myelopathy; Intervertebral Disc Disorder; Spondylosis without Myelopathy; Lumbosacral Spondylosis without Myelopathy; Lumbar Radiculopathy; Post-laminectomy Syndrome; Lumbar Spondylolisthesis; Greater Trochanteric Pain Syndrome; Long-term Drug Therapy; Lumbosacral Radiculopathy Maki Gastelum, VETERINARY PARASITOLOGIST: [id number] [address], Ph. 02/04/2020 Inflammation of Sacroiliac Joint; Degeneration of Lumbar Intervertebral Disc; Degeneration of Lumbosacral Intervertebral Disc; Displacement of Lumbar Intervertebral Disc without Myelopathy; Intervertebral Disc Disorder; Spondylosis without Myelopathy; Lumbosacral Spondylosis without Myelopathy; Lumbar Radiculopathy; Post-laminectomy Syndrome; Lumbar Spondylolisthesis; Greater Trochanteric Pain Syndrome; Long-term Drug Therapy; Lumbosacral Radiculopathy Maki Gastelum, VETERINARY PARASITOLOGIST: [address] [address], Ph. 12/19/2019 Inflammation of Sacroiliac Joint; Degeneration of Lumbar Intervertebral Disc; Degeneration of Lumbosacral Intervertebral Disc; Displacement of Lumbar Intervertebral Disc without Myelopathy; Intervertebral Disc Disorder; Spondylosis without Myelopathy; Lumbosacral Spondylosis without Myelopathy; Lumbar Radiculopathy; Post-laminectomy Syndrome; Lumbar Spondylolisthesis; Greater Trochanteric Pain Syndrome; Long-term Drug Therapy; Lumbosacral Radiculopathy Maki Gastelum, VETERINARY PARASITOLOGIST: [address] [address], Ph. 11/07/2019 Inflammation of Sacroiliac Joint; Degeneration of Lumbar Intervertebral Disc; Degeneration of Lumbosacral Intervertebral Disc; Displacement of Lumbar Intervertebral Disc without Myelopathy; Intervertebral Disc Disorder; Spondylosis without Myelopathy; Lumbosacral Spondylosis without Myelopathy; Lumbar Radiculopathy; Post-laminectomy Syndrome; Lumbar Spondylolisthesis; Greater Trochanteric Pain Syndrome; Long-term Drug Therapy; Lumbosacral Radiculopathy Maki Gastelum, VETERINARY PARASITOLOGIST: [id number] [address], Ph. 09/26/2019 Inflammation of Sacroiliac Joint; Degeneration of Lumbar Intervertebral Disc; Degeneration of Lumbosacral Intervertebral Disc; Displacement of Lumbar Intervertebral Disc without Myelopathy; Intervertebral Disc Disorder; Spondylosis without Myelopathy; Lumbosacral Spondylosis without Myelopathy; Lumbar Radiculopathy; Post-laminectomy Syndrome; Lumbar Spondylolisthesis; Greater Trochanteric Pain Syndrome; Long-term Drug Therapy; Lumbosacral Radiculopathy Maki Gastelum VETERINARY PARASITOLOGIST: [address] [facility] [address], [place] [address], Ph. 08/08/2019 Inflammation of Sacroiliac Joint; Degeneration of Lumbar Intervertebral Disc; Degeneration of Lumbosacral Intervertebral Disc; Displacement of Lumbar Intervertebral Disc without Myelopathy; Intervertebral Disc Disorder; Spondylosis without Myelopathy; Lumbosacral Spondylosis without Myelopathy; Lumbar Radiculopathy; Post-laminectomy Syndrome; Lumbar Spondylolisthesis; Greater Trochanteric Pain Syndrome; Long-term Drug Therapy; Lumbosacral Radiculopathy Maki Gastelum VETERINARY PARASITOLOGIST: [address] [facility] [address], [place] [address], Ph. 07/11/2019 Inflammation of Sacroiliac Joint; Degeneration of Lumbar Intervertebral Disc; Degeneration of Lumbosacral Intervertebral Disc; Displacement of Lumbar Intervertebral Disc without Myelopathy; Intervertebral Disc Disorder; Spondylosis without Myelopathy; Lumbosacral Spondylosis without Myelopathy; Lumbar Radiculopathy; Post-laminectomy Syndrome; Lumbar Spondylolisthesis; Greater Trochanteric Pain Syndrome; Long-term Drug Therapy; Lumbosacral Radiculopathy Maki Gastelum VETERINARY PARASITOLOGIST: [address] [address], Ph. 05/16/2019 Inflammation of Sacroiliac Joint; Degeneration of Lumbar Intervertebral Disc; Degeneration of Lumbosacral Intervertebral Disc; Displacement of Lumbar Intervertebral Disc without Myelopathy; Intervertebral Disc Disorder; Spondylosis without Myelopathy; Lumbosacral Spondylosis without Myelopathy; Lumbar Radiculopathy; Post-laminectomy Syndrome; Lumbar Spondylolisthesis; Greater Trochanteric Pain Syndrome; Long-term Drug Therapy; Lumbosacral Radiculopathy Maki Gastelum, VETERINARY PARASITOLOGIST: [address] [address], Ph. 03/29/2019 Inflammation of Sacroiliac Joint; Degeneration of Lumbar Intervertebral Disc; Degeneration of Lumbosacral Intervertebral Disc; Displacement of Lumbar Intervertebral Disc without Myelopathy; Intervertebral Disc Disorder; Spondylosis without Myelopathy; Lumbosacral Spondylosis without Myelopathy; Lumbar Radiculopathy; Post-laminectomy Syndrome; Lumbar Spondylolisthesis; Greater Trochanteric Pain Syndrome; Long-term Drug Therapy Maki Pappasjamshid, VETERINARY PARASITOLOGIST: [address] [address], Ph. 02/14/2019 Inflammation of Sacroiliac Joint; Degeneration of Lumbar Intervertebral Disc; Degeneration of Lumbosacral Intervertebral Disc; Displacement of Lumbar Intervertebral Disc without Myelopathy; Intervertebral Disc Disorder; Spondylosis without Myelopathy; Lumbosacral Spondylosis without Myelopathy; Lumbar Radiculopathy; Post-laminectomy Syndrome; Lumbar Spondylolisthesis; Greater Trochanteric Pain Syndrome; Long-term Drug Therapy Maki Pappasjamshid, VETERINARY PARASITOLOGIST: [address] [address], Ph. 01/03/2019 Inflammation of Sacroiliac Joint; Degeneration of Lumbar Intervertebral Disc; Degeneration of Lumbosacral Intervertebral Disc; Displacement of Lumbar Intervertebral Disc without Myelopathy; Intervertebral Disc Disorder; Spondylosis without Myelopathy; Lumbosacral Spondylosis without Myelopathy; Lumbar Radiculopathy; Post-laminectomy Syndrome; Lumbar Spondylolisthesis; Greater Trochanteric Pain Syndrome; Long-term Drug Therapy Maki Pappasjamshid, VETERINARY PARASITOLOGIST: [address] [address], Ph. 12/13/2018 Inflammation of Sacroiliac Joint; Degeneration of Lumbar Intervertebral Disc; Degeneration of Lumbosacral Intervertebral Disc; Displacement of Lumbar Intervertebral Disc without Myelopathy; Intervertebral Disc Disorder; Spondylosis without Myelopathy; Lumbosacral Spondylosis without Myelopathy; Lumbar Radiculopathy; Post-laminectomy Syndrome; Lumbar Spondylolisthesis; Greater Trochanteric Pain Syndrome; Long-term Drug Therapy Tien Neves MD: [address] [address], [place] [address], Ph. 11/24/2018 Inflammation of Sacroiliac Joint; Degeneration of Lumbar Intervertebral Disc; Degeneration of Lumbosacral Intervertebral Disc; Displacement of Lumbar Intervertebral Disc without Myelopathy; Intervertebral Disc Disorder; Spondylosis without Myelopathy; Lumbosacral Spondylosis without Myelopathy; Lumbar Radiculopathy; Post-laminectomy Syndrome; Lumbar Spondylolisthesis; Greater Trochanteric Pain Syndrome; Long-term Drug Therapy Maki Gastelum NP: [id number] [address], Ph. 10/25/2018 Inflammation of Sacroiliac Joint; Degeneration of Lumbar Intervertebral Disc; Degeneration of Lumbosacral Intervertebral Disc; Displacement of Lumbar Intervertebral Disc without Myelopathy; Intervertebral Disc Disorder; Spondylosis without Myelopathy; Lumbosacral Spondylosis without Myelopathy; Lumbar Radiculopathy; Post-laminectomy Syndrome; Lumbar Spondylolisthesis; Greater Trochanteric Pain Syndrome Maki Gastelum NP: [id number] [address], Ph. 09/06/2018 Inflammation of Sacroiliac Joint; Degeneration of Lumbar Intervertebral Disc; Degeneration of Lumbosacral Intervertebral Disc; Displacement of Lumbar Intervertebral Disc without Myelopathy; Intervertebral Disc Disorder; Spondylosis without Myelopathy; Lumbosacral Spondylosis without Myelopathy; Lumbar Radiculopathy; Post-laminectomy Syndrome; Lumbar Spondylolisthesis; Greater Trochanteric Pain Syndrome Maki Gastelum VETERINARY PARASITOLOGIST: [address] [address], Ph. 07/26/2018 Inflammation of Sacroiliac Joint; Degeneration of Lumbar Intervertebral Disc; Degeneration of Lumbosacral Intervertebral Disc; Displacement of Lumbar Intervertebral Disc without Myelopathy; Intervertebral Disc Disorder; Spondylosis without Myelopathy; Lumbosacral Spondylosis without Myelopathy; Lumbar Radiculopathy; Post-laminectomy Syndrome; Lumbar Spondylolisthesis; Greater Trochanteric Pain Syndrome Maki Gastelum NP: [address] [address], [place] [address], Ph. 07/05/2018 Post-laminectomy Syndrome; Lumbar Radiculopathy; Degeneration of Lumbar Intervertebral Disc; Degeneration of Lumbosacral Intervertebral Disc; Displacement of Lumbar Intervertebral Disc without Myelopathy; Intervertebral Disc Disorder; Spondylosis without Myelopathy; Lumbosacral Spondylosis without Myelopathy; Inflammation of Sacroiliac Joint; Lumbar Spondylolisthesis; Greater Trochanteric Pain Syndrome Tien Neves MD: [address] [address], Ph. 06/14/2018 Inflammation of Sacroiliac Joint; Degeneration of Lumbar Intervertebral Disc; Degeneration of Lumbosacral Intervertebral Disc; Displacement of Lumbar Intervertebral Disc without Myelopathy; Intervertebral Disc Disorder; Spondylosis without Myelopathy; Lumbosacral Spondylosis without Myelopathy; Lumbar Radiculopathy; Post-laminectomy Syndrome; Lumbar Spondylolisthesis; Greater Trochanteric Pain Syndrome Tien Neves MD: [address] [address], Ph. 06/01/2018 Inflammation of Sacroiliac Joint; Degeneration of Lumbar Intervertebral Disc; Degeneration of Lumbosacral Intervertebral Disc; Displacement of Lumbar Intervertebral Disc without Myelopathy; Intervertebral Disc Disorder; Spondylosis without Myelopathy; Lumbosacral Spondylosis without Myelopathy; Lumbar Radiculopathy; Post-laminectomy Syndrome; Lumbar Spondylolisthesis; Greater Trochanteric Pain Syndrome Tien Neves MD: [address] [address], [place] [address], Ph. 05/19/2018 Inflammation of Sacroiliac Joint; Degeneration of Lumbar Intervertebral Disc; Degeneration of Lumbosacral Intervertebral Disc; Displacement of Lumbar Intervertebral Disc without Myelopathy; Intervertebral Disc Disorder; Spondylosis without Myelopathy; Lumbosacral Spondylosis without Myelopathy; Lumbar Radiculopathy; Post-laminectomy Syndrome; Lumbar Spondylolisthesis; Greater Trochanteric Pain Syndrome Maki Gastelum VETERINARY PARASITOLOGIST: [address] [facility] [address], [place] [address], Ph. 04/13/2018 Inflammation of Sacroiliac Joint; Degeneration of Lumbar Intervertebral Disc; Degeneration of Lumbosacral Intervertebral Disc; Displacement of Lumbar Intervertebral Disc without Myelopathy; Intervertebral Disc Disorder; Spondylosis without Myelopathy; Lumbosacral Spondylosis without Myelopathy; Lumbar Radiculopathy; Post-laminectomy Syndrome; Lumbar Spondylolisthesis; Greater Trochanteric Pain Syndrome Tien Neves MD: [address] [address], [place] [address], Ph. 03/07/2018 Inflammation of Sacroiliac Joint; Degeneration of Lumbar Intervertebral Disc; Degeneration of Lumbosacral Intervertebral Disc; Displacement of Lumbar Intervertebral Disc without Myelopathy; Intervertebral Disc Disorder; Spondylosis without Myelopathy; Lumbosacral Spondylosis without Myelopathy; Lumbar Radiculopathy; Post-laminectomy Syndrome; Lumbar Spondylolisthesis; Greater Trochanteric Pain Syndrome Maki Gastelum VETERINARY PARASITOLOGIST: [address] [address], [place] [address], Ph. Social History Tobacco Smoking Status Never [...]
--- OUTSIDE RECORDS SUMMARY | 2020-05-02 17:10 | CCD ---
Author Author [facility] Organization [facility] Address Unknown Phone Unavailable Care Team Providers Care Emergency Service Restorer Name Role Phone Jorge Fischer Unavailable PROBLEMS Type Condition ICD9-CM Code [id number] Code Onset Dates Condition S tatus SNOMED Code Notes Problem Hyperlipidemia E78.5 Active 02128122 Problem Osteoporosis M81.0 Active 43988280 Problem DJD (degenerative joint disease), lumbar M47.816 Active 399658100 Problem Vitamin D deficiency E55.9 Active 58349849 Problem Hypertension I10 Active 93538018 Problem Allergic rhinitis J30.9 Active 85132402 Problem Insomnia G47.00 Active 735494822 Problem Gustatory sweating L74.519 Active 02534775 Problem Clostridium difficile colitis A04.7 Active 42 0851485 Problem Ankle arthritis M19.079 Active 706965132 Problem CTS (carpal tunnel syndrome) G56.00 Active 574 80327 Problem Diastolic CHF I50.30 Active 390068582 Problem IFG (impaired fasting glucose) R73.01 Active 3 97511581 Problem LATANYA (obstructive sleep apnea) G47.33 Active 78 931610 Problem Chronic diarrhea K52.9 Active 187736979 Problem Macrocytosis D75.89 Active 858509592 Problem B12 deficiency E53.8 Active 700421633 Problem Hx of colonic polyp Z86.010 Active 250275968 Problem Chronic depression F32.9 Active 708411507 Problem Gastroesophageal reflux disease without esophagitis K21.9 Active 018387474 Problem 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 Active 175910272 Problem Ataxia R27.0 Active 16872812 Problem Bilateral pulmonary embolism I26.99 Active 592 28764 Problem Arthritis of hand, 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 Active 6704318 05 Problem Recurrent UTI N39.0 Active 310460748 Problem 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 Active 611427644 Problem Tension headache G44.209 Active 446067562 Problem Breast cancer screening Z12.39 Active 39303177 6 Problem Iron deficiency anemia, unspecified iron deficiency an emia type D50.9 Active 22389439 Problem Leukocytosis, unspecified type D72.829 Active 1 29475479 Problem Arthritis of left hand M19.042 Active 767394510 Problem 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 6486018783872 Problem 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 Active 18727539 ALLERGIES Allergen (clinical drug ingredient) Drug/Non Drug Allergy do cumented on EMR Reaction Allergy Type Onset Date Status doxycycline Doxycycline Hyclate([facility] Code:[address]-40) ques tionable Drug Allergy Active aspirin Aspirin(ND Code:[address]-51) Rash Drug Allergy Active zolpidem Ambien CR([facility] Code:[address]-92) headaches Drug Allergy Active Flexeril myalgia Drug Allergy Active atorvastatin Lipitor(NDC Code:[address]-16) myalgia Drug Allergy Active irbesartan Avapro([facility] Code:[address]-41) leg ache Drug Allergy Active Penicillin (For Allergies Use Only) Rash Drug Allerg y Active tizanidine Zanaflex([facility] Code:[address]-75) vertigo Drug Allergy Active ENCOUNTERS from 1936 to 2020-03-07 Encounter Location Date Provider Diagnosis [address] [address] Feb, 020 Jorge Fischer Chronic depression F32.9 IMMUNIZATIONS Vaccine Route Administration Date Status Influenza (Pharmacy Given) IM Intramuscular Feb 08, 2019 Admi nistered Influenza (High Dose 65 & up) IM Intramuscular Apr 08, 2015 A dministered Influenza (High Dose 65 & up) IM Intramuscular Jan 22, 2016 A dministered Influenza (18 yrs & older) Flublok IM Intramuscular Feb 28, 2018 Administered Influenza (6mo & up) Fluzone [...] Unknown Language: Question Answer Notes Languages spoken: Nigerien Evangelical: Question Answer Notes Evangelical 05 Anab[employer]ist Sexual Hx: Question Answer Notes Had sex [...] Tear Solution - as directed Ophthalmic Active [place] 10-325 MG 1 tablet as needed Orally every 6 hrs, MDD 4-Bolla Active Ankle Brace Cadgel-bq-Ymi - velcro-left ankle DX: M19.079 daily for 90 day(s) July, Active Welchol 625 MG 1 tablet with meals Orally Twice a day for 30 day(s) Active Vitamin D 2000 UNIT 1 tab Orally Once a day Active Paroxetine HCl 20 MG 1 tablet in the morning Orally Once a day f or day(s) Active Ondansetron HCl 4 MG 1 tablet Orally every 4 hours prn nausea for 3 0 day(s) Active Rosuvastatin Calcium 40 MG 1 tablet Orally Once a day for 90 Active Bisoprolol Fumarate 10 mg 1 tablet Orally Once a day for 90 Active Ankle Lace-Up Brace - l ankle [...] Relief 2 tablets orally twice daily Active Cyclobenzaprine HCl 5 MG 1 tablet at bedtime as neede d Orally Once a day for 30 days Active Cyanocobalamin 500 MCG 1 tablet Orally Once a day for 90 day(s) Active Gabapentin 400 MG 1 capsule Orally twice daily for 30 Days Active PROCEDURES No Information RESULTS No Results REASON FOR VISIT paroxetine MEDICAL (GENERAL) HISTORY Type Description Date Medical [...] Surgical History tonsillectomy/adenoidectomy 1957 Surgical History sinus surgery-[facility] Surgical History D & C 1973 Surgical History bladder suspension 1993 Surgical History cholecystectomy 2003 Surgical History Carpal Tunnel Release, left 2009 Surgical History ACDF-[place] 09/12/13 Surgical History PLDF-[place]-(L2-S1 decompression, L4- S1-fusion) 08/21/14 Surgical History trigger finger release surgery-Dr. Tru [facility] 10/19/17 Hospitalization History viral gastronenteritis c 2 A RF, negative CT A/P, BCX, stool infectious workup 08/2011 Hospitalization History back surgery-[facility] 09/26 015 Hospitalization History acute metabolic encephalopat hy c fall c R lateral malleolar ND fracture-Van placed in [place]-favor 2 narcotics (on HC 40 TDD from [place]) and trazadone 50 (stopped) and UTI-UDS + [...] Notes Treatment Notes Treatm ent Clinical Notes Feb, Chronic depression (ICD-10 - F32.9) PLAN OF TREATMENT Medication Medication Name Sig Start Date Stop Date Paroxetine HCl 20 MG 1 tablet in the morning Orally Once a day f or 90 day(s) Cyclobenzaprine HCl 5 MG 1 tablet at bedtime as neede d Orally Once a day for 30 days Flonase 50 MCG/ACT 2 sprays Nasally Once a day for 30 Esomeprazole Magnesium 40 MG 1 tab Orally bid for 90 day(s) Celebrex 200 MG 1 capsule with food Orally Once a day for 90 Next Appt Details Provider Name:Azalea Ad Hunter, 2019-05-14 03:00:00 PM, [address] [place], [address], Insurance Providers Payer Name Payer Address Payer Phone Insured Name Patient Relati onship to Insured Coverage Start Date Coverage End Date [employer] [address] [address] [facility] [address] WALDO SCHERER
--- OUTSIDE RECORDS SUMMARY | 2020-05-02 17:10 | CCD | Continuity of Care Document ---
Author Author Eva CURIEL DP Organization Unknown Address [address] [place] [address], [facility] [address] [place] [address] Phone [phone] Problems Description No Information Available Social History Type Date Description Comments Sex [...] 400mg Capsules Unknown Prednisone 20mg Tablets GIBSON Lopez Rose Mary Nitrofurantoin Monohydrate/Macrocrystals 100mg Capsules TK 1 C [...] Tablets Unknown Fluticasone Propionate 50mcg/Act Suspension GIBSON Lopez, Jenny Rodriguez Bisoprolol Fumarate 10mg Tablets Amado Mathis,Jorge Celecoxib 200mg Capsules JODI Hunter, Azalea Immunizations Description No Information Available Vital Signs Date Vital Result Comment 01/30/2020 3:22pm Height 60 inches 5'0" Weight 169.00 lb BP Systolic 122 mmHg BP Diastolic 66 mmHg Heart Rate 102 /min BMI (Body Mass Index) 33.0 kg/m2 Results Description No Information Available Procedures Date Code Description Status 01/30/2020 69059 Debridement 6-10 Nails Electric Completed Medical Devices Description No Information Available Encounters Type Date Location Provider Dx Diagnosis Office Visit 01/30/2020 3:00p [facility] Nehemiah Curiel DPM M79.676 Pain in unspecified toe(s) G62.89 Other specified polyneuropat [facility] B35.1 Tinea unguium Assessments Date Code Description Provider 01/30/2020 M79.676 Pain in unspecified toe(s) Prabhakar Curiel DPM 01/30/2020 G62.89 Other specified polyneuropathies Nehemiah Curiel DPM 01/30/2020 B35.1 Tinea unguium Nehemiah Curiel DPM Plan of Treatment Future Appointment(s):* 04/09/2020 2:45 pm - Nehemiah Curiel DPM at [facility] Functional Status Description No Information Available Mental Status Description No Information Available Referrals Description No Information Available
--- OUTSIDE RECORDS SUMMARY | 2020-05-02 17:10 | CCD ---
Author Author [facility] Organization [facility] Address Unknown Phone Unavailable Care Team Providers Care Hospitality House Supervisor Name Role Phone Jorge Fischer Unavailable PROBLEMS Type Condition ICD9-CM Code BRZ99-VS Code Onset Dates Condition S tatus SNOMED Code Notes Problem Hyperlipidemia E78.5 Active 84482239 Problem Osteoporosis M81.0 Active 56444339 Problem DJD (degenerative joint disease), lumbar M47.816 Active 963892178 Problem Vitamin D deficiency E55.9 Active 38735365 Problem Hypertension I10 Active 37086330 Problem Allergic rhinitis J30.9 Active 17207934 Problem Insomnia G47.00 Active 604155250 Problem Gustatory sweating L74.519 Active 14277536 Problem Clostridium difficile colitis A04.7 Active 42 8563406 Problem Ankle arthritis M19.079 Active 509312132 Problem CTS (carpal tunnel syndrome) G56.00 Active 574 59210 Problem Diastolic CHF I50.30 Active 828852026 Problem IFG (impaired fasting glucose) R73.01 Active 3 82439671 Problem LATANYA (obstructive sleep apnea) G47.33 Active 78 094181 Problem Chronic diarrhea K52.9 Active 726307261 Problem Macrocytosis D75.89 Active 017064820 Problem B12 deficiency E53.8 Active 794881568 Problem Hx of colonic polyp Z86.010 Active 531066883 Problem Chronic depression F32.9 Active 771965313 Problem Gastroesophageal reflux disease without esophagitis K21.9 Active 763873717 Problem 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 Active 478503721 Problem Ataxia R27.0 Active 83789667 Problem Bilateral pulmonary embolism I26.99 Active 592 95027 Problem Arthritis of hand, 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 Active 8474903 05 Problem Recurrent UTI N39.0 Active 926741558 Problem 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 Active 915436286 Problem Tension headache G44.209 Active 447508243 Problem Breast cancer screening Z12.39 Active 20203758 6 Problem Iron deficiency anemia, unspecified iron deficiency an emia type D50.9 Active 39636797 Problem Leukocytosis, unspecified type D72.829 Active 1 60079809 Problem Arthritis of left hand M19.042 Active 488762307 Problem 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 8933743866465 Problem 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 Active 57482338 ALLERGIES Allergen (clinical drug ingredient) Drug/Non Drug Allergy do cumented on EMR Reaction Allergy Type Onset Date Status doxycycline Doxycycline Hyclate([facility] Code:[address]-43) ques tionable Drug Allergy Active aspirin Aspirin(ND Code:[address]-99) Rash Drug Allergy Active zolpidem Ambien CR(ND Code:[address]-36) headaches Drug Allergy Active Flexeril myalgia Drug Allergy Active atorvastatin Lipitor(NDC Code:[address]-65) myalgia Drug Allergy Active irbesartan Avapro([facility] Code:[address]-30) leg ache Drug Allergy Active Penicillin (For Allergies Use Only) Rash Drug Allerg y Active tizanidine Zanaflex(ND Code:[address]-78) vertigo Drug Allergy Active ENCOUNTERS from 1936 to 2020-02-07 Encounter Location Date Provider Diagnosis [address] [address] Jan, 020 Jorge Fischer IMMUNIZATIONS Vaccine Route Administration Date Status Pneumococcal Adult 0.5mL (Pneumovax 23) IM Intramuscular Mar 24, 2018 Administered Influenza (High Dose 65 & up) IM Intramuscular Jan 22, 2016 A dministered Pneumococcal 0.5mL (Prevnar 13) IM Intramuscular Dec 31, 2016 Administered Influenza (18 yrs & older) Flublok IM Intramuscular Feb 28, 2018 Administered Influenza (6mo & up) Fluzone IM Intramuscular Dec 18, 2009 Ad ministered Influenza (High Dose 65 & up) IM Intramuscular Apr 08, 2015 A dministered Influenza (High Dose 65 & up) IM Intramuscular Jan 01, 2015 A dministered TDAP 0.5mL (Boostrix) IM Intramuscular Feb 12, 2010 Administe red Influenza (Pharmacy Given) IM Intramuscular Feb 08, [...] Unknown Language: Question Answer Notes Languages spoken: Vietnamese Voodoo: Question Answer Notes Voodoo 05 [employer] Sexual Hx: Question Answer Notes Had sex [...] MEDICATIONS Medication SIG (Take, Route, Frequency, Duration) Start Date En d Date Status Vitamin D 2000 UNIT 1 tab Orally Once a day Active Artificial Tear Solution - as directed Ophthalmic Active Ondansetron HCl 4 MG 1 tablet Orally every 4 hours prn nausea for 3 0 day(s) Active Rivaroxaban 20 MG 1 tablet with food Orally Once a day for 30 Days Active Ankle Brace Rtinge-wi-Zcc - velcro-left ankle DX: M19.079 da fior for 90 day(s) July, Active Cyanocobalamin 500 MCG 1 tablet Orally Once a day for 90 day(s) Active Flonase 50 MCG/ACT 2 sprays Nasally Once a day for 90 day(s) Active Rosuvastatin Calcium 40 MG 1 tablet Orally Once a day for 90 Active Bisoprolol Fumarate 10 mg 1 tablet Orally Once a day for 90 Active Ankle Lace-Up Brace - l ankle _ Daily for 90 day(s) Active Celebrex 200 MG 1 capsule with food Orally Once a day for 90 Active Furosemide 40 MG 1 tablet Orally Once a day Active Micro-K 10 MEQ 1 capsule Orally daily for 90 day(s) Active [place] 10-325 MG 1 tablet as needed Orally every 6 hrs, MDD 4-Bolla Active Paroxetine HCl 20 MG 1 tablet in the morning Orally Once a day for 30 Days Active Gabapentin 400 MG 1 capsule Orally twice daily for 30 Days Active Tension Headache Relief 2 tablets orally twice daily Active Cyclobenzaprine HCl 5 MG 1 tablet at bedtime as neede d Orally Once a day for 30 days Active Welchol 625 MG 1 tablet with meals Orally Twice a day for 30 day(s) Active Esomeprazole Magnesium 40 MG 1 tab Orally bid for 90 Active PROCEDURES No Information RESULTS No Results REASON FOR VISIT Celebrex 200 MG Capsule MEDICAL (GENERAL) HISTORY Type Description Date Medical [...] Surgical History tonsillectomy/adenoidectomy 1957 Surgical History sinus surgery-[facility] Surgical History D & C 1973 Surgical History bladder suspension 1993 Surgical History cholecystectomy 2003 Surgical History Carpal Tunnel Release, left 2009 Surgical History [facility]CDF[place] 09/12/13 Surgical History PLDF-[place]-(L2-S1 decompression, L4- S1-fusion) 08/21/14 Surgical History trigger finger release surgery-Dr. Tru [facility] 10/19/17 Hospitalization History viral gastronenteritis c 2 A RF, negative CT A/P, BCX, stool infectious workup 08/2011 Hospitalization History back surgery-[facility] 09/26 015 Hospitalization History acute metabolic [...] Medication Name Sig Start Date Stop Date Celebrex 200 MG 1 capsule with food Orally Once a day for 90 Cyclobenzaprine HCl 5 MG 1 tablet at bedtime as neede d Orally Once a day for 30 days Next Appt Details Provider Name:Azalea Hunter, 2019-03 03:00:00 PM, [address] [place], [address], Insurance Providers Payer Name Payer Address Payer Phone Insured Name Patient Relati onship to Insured Coverage Start Date Coverage End Date [facility] [address] [address] [facility] [address] [phone] WALDO SCHERER self
--- OUTSIDE RECORDS SUMMARY | 2020-05-02 17:10 | CCD ---
Author Author [facility] Organization [facility] Address Unknown Phone Unavailable Care Team Providers Care Pediatric Rn Name Role Phone Jorge Fischer Unavailable PROBLEMS Type Condition ICD9-CM Code TTS47-YW Code Onset Dates Condition S tatus SNOMED Code Notes Problem Hyperlipidemia E78.5 Active 73904847 Problem Osteoporosis M81.0 Active 45204427 Problem DJD (degenerative joint disease), lumbar M47.816 Active 134740159 Problem Vitamin D deficiency E55.9 Active 88757151 Problem Hypertension I10 Active 00644770 Problem Allergic rhinitis J30.9 Active 32573154 Problem Insomnia G47.00 Active 709382451 Problem Gustatory sweating L74.519 Active 21166800 Problem Clostridium difficile colitis A04.7 Active 42 8572098 Problem Ankle arthritis M19.079 Active 269763626 Problem CTS (carpal tunnel syndrome) G56.00 Active 574 09078 Problem Diastolic CHF I50.30 Active 339170414 Problem IFG (impaired fasting glucose) R73.01 Active 3 55239373 Problem LATANYA (obstructive sleep apnea) G47.33 Active 78 010818 Problem Chronic diarrhea K52.9 Active 367001193 Problem Macrocytosis D75.89 Active 711729166 Problem B12 deficiency E53.8 Active 535984662 Problem Hx of colonic polyp Z86.010 Active 863953348 Problem Chronic depression F32.9 Active 778176344 Problem Gastroesophageal reflux disease without esophagitis K21.9 Active 720896859 Problem 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 Active 842975336 Problem Ataxia R27.0 Active 53539143 Problem Bilateral pulmonary embolism I26.99 Active 592 69825 Problem Arthritis of hand, 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 Active 6149112 05 Problem Recurrent UTI N39.0 Active 060887322 Problem 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 Active 472871865 Problem Tension headache G44.209 Active 379817211 Problem Breast cancer screening Z12.39 Active 67422757 6 Problem Iron deficiency anemia, unspecified iron deficiency an emia type D50.9 Active 51462381 Problem Leukocytosis, unspecified type D72.829 Active 1 01333793 Problem Arthritis of left hand M19.042 Active 794312044 Problem 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 3411317993038 Problem 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 Active 78375324 ALLERGIES Allergen (clinical drug ingredient) Drug/Non Drug Allergy do cumented on EMR Reaction Allergy Type Onset Date Status doxycycline Doxycycline Hyclate([facility] Code:[address]-48) ques tionable Drug Allergy Active aspirin Aspirin(ND Code:[address]-44) Rash Drug Allergy Active zolpidem Ambien CR(ND Code:[address]-36) headaches Drug Allergy Active Flexeril myalgia Drug Allergy Active atorvastatin Lipitor(NDC Code:[address]-63) myalgia Drug Allergy Active irbesartan Avapro([facility] Code:[address]-32) leg ache Drug Allergy Active Penicillin (For Allergies Use Only) Rash Drug Allerg y Active tizanidine Zanaflex([facility] Code:[address]-81) vertigo Drug Allergy Active ENCOUNTERS from 1936 to 2020-03-26 Encounter Location Date Provider Diagnosis [address] [address] Feb, 020 Jorge Fischer IMMUNIZATIONS Vaccine Route Administration Date Status Influenza (18 yrs & older) Flublok IM Intramuscular Feb 28, 2018 Administered Influenza (Pharmacy Given) IM Intramuscular Feb 08, [...] Unknown Language: Question Answer Notes Languages spoken: Libyan Yazidi: Question Answer Notes Yazidi 05 Jehovah'S Witness Sexual Hx: Question Answer Notes Had sex [...] Tear Solution - as directed Ophthalmic Active [place] 10-325 MG 1 tablet as needed Orally every 6 hrs, MDD 4-Bolla Active Ankle Brace Iofkdk-me-Bum - velcro-left ankle DX: M19.079 daily for 90 day(s) July, Active Rosuvastatin Calcium 40 MG 1 tablet Orally Once a day for 90 day(s) Active Vitamin D 2000 UNIT 1 tab Orally Once a day Active Esomeprazole Magnesium 40 MG 1 tab Orally bid for 90 day(s) Active Ondansetron HCl 4 MG 1 tablet Orally every 4 hours prn nausea for 3 0 day(s) Active Bisoprolol Fumarate 10 mg 1 tablet Orally Once a day for 90 Active Paroxetine HCl 20 MG 1 tablet in the morning Orally Once a day f or 90 day(s) Active Ankle Lace-Up Brace - [...] Once a day for 30 days Active Micro-K 10 MEQ 1 capsule Orally daily for 90 day(s) Active Gabapentin 400 MG 1 capsule Orally twice daily for 30 Days Active PROCEDURES No Information RESULTS No Results REASON FOR VISIT rosuvastatin MEDICAL (GENERAL) HISTORY Type Description Date Medical [...] Surgical History tonsillectomy/adenoidectomy 1957 Surgical History sinus surgery-[facility] Surgical History D & C 1973 Surgical History bladder suspension 1993 Surgical History cholecystectomy 2003 Surgical History Carpal Tunnel Release, left 2009 Surgical History [facility] 09/12/13 Surgical History PLDF[place]-(L2-S1 decompression, L4- S1-fusion) 08/21/14 Surgical History trigger finger release surgery-Dr. Tru [facility] 10/19/17 Hospitalization History viral gastronenteritis c 2 A RF, negative CT A/P, BCX, stool infectious workup 08/2011 Hospitalization History back surgery-[facility] 09/26 015 Hospitalization History acute metabolic [...] Orally Once a day for 30 days Welchol 625 MG 1 tablet with meals Orally Twice a day for 30 Esomeprazole Magnesium 40 MG 1 tab Orally bid for 90 day(s) Flonase 50 MCG/ACT 2 sprays Nasally Once a day for 30 Rosuvastatin Calcium 40 MG 1 tablet Orally Once a day for 90 day (s) Celebrex 200 MG 1 capsule with food Orally Once a day for 90 Insurance Providers Payer Name Payer Address Payer Phone Insured Name Patient Relati onship to Insured Coverage Start Date Coverage End Date REPLACED BY [facility] [address] [address] [facility] [address] WALDO SCHERER self
--- OUTSIDE RECORDS SUMMARY | 2020-05-02 17:10 | CCD ---
Author Author [facility] Organization [facility] Address Unknown Phone Unavailable Care Team Providers Care Camp Dishwasher Name Role Phone Jorge Fischer Unavailable PROBLEMS Type Condition ICD9-CM Code [id number] Code Onset Dates Condition S tatus SNOMED Code Notes Problem Hyperlipidemia E78.5 Active 89646431 Problem Osteoporosis M81.0 Active 45594214 Problem DJD (degenerative joint disease), lumbar M47.816 Active 755029214 Problem Vitamin D deficiency E55.9 Active 33829051 Problem Hypertension I10 Active 24191372 Problem Allergic rhinitis J30.9 Active 17261523 Problem Insomnia G47.00 Active 021568595 Problem Gustatory sweating L74.519 Active 71558374 Problem Clostridium difficile colitis A04.7 Active 42 2884807 Problem Ankle arthritis M19.079 Active 046333279 Problem CTS (carpal tunnel syndrome) G56.00 Active 574 89402 Problem Diastolic CHF I50.30 Active 740156013 Problem IFG (impaired fasting glucose) R73.01 Active 3 54018251 Problem LATANYA (obstructive sleep apnea) G47.33 Active 78 460674 Problem Chronic diarrhea K52.9 Active 789598662 Problem Macrocytosis D75.89 Active 628266612 Problem B12 deficiency E53.8 Active 882647621 Problem Hx of colonic polyp Z86.010 Active 596947286 Problem Chronic depression F32.9 Active 281865013 Problem Gastroesophageal reflux disease without esophagitis K21.9 Active 187852204 Problem 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 Active 932325545 Problem Ataxia R27.0 Active 42283252 Problem Bilateral pulmonary embolism I26.99 Active 592 43441 Problem Arthritis of hand, 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 Active 1763462 05 Problem Recurrent UTI N39.0 Active 139991100 Problem 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 Active 489150444 Problem Tension headache G44.209 Active 985197748 Problem Breast cancer screening Z12.39 Active 33723672 6 Problem Iron deficiency anemia, unspecified iron deficiency an emia type D50.9 Active 87061340 Problem Leukocytosis, unspecified type D72.829 Active 1 72367464 Problem Arthritis of left hand M19.042 Active 910133303 Problem 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 1425647156807 Problem 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 Active 57593261 ALLERGIES Allergen (clinical drug ingredient) Drug/Non Drug Allergy do cumented on EMR Reaction Allergy Type Onset Date Status doxycycline Doxycycline Hyclate([facility] Code:[address]-43) ques tionable Drug Allergy Active aspirin Aspirin(ND Code:[address]-93) Rash Drug Allergy Active zolpidem Ambien CR(ND Code:[address]-83) headaches Drug Allergy Active Flexeril myalgia Drug Allergy Active atorvastatin Lipitor(NDC Code:[address]-19) myalgia Drug Allergy Active irbesartan Avapro([facility] Code:[address]-26) leg ache Drug Allergy Active Penicillin (For Allergies Use Only) Rash Drug Allerg y Active tizanidine Zanaflex([facility] Code:[address]-53) vertigo Drug Allergy Active ENCOUNTERS from 1936 to 2020-02-14 Encounter Location Date Provider Diagnosis [address] [address] Jan, 020 Jorge Fischer IMMUNIZATIONS Vaccine Route [...] Unknown Language: Question Answer Notes Languages spoken: Mauritian Latter Day: Question Answer Notes L[employer] Day 05 Yarsanism Sexual Hx: Question Answer Notes Had sex [...] Tear Solution - as directed Ophthalmic Active [place] 10-325 MG 1 tablet as needed Orally every 6 hrs, MDD 4-Bolla Active Ankle Brace [id number]-tj-Vxq - velcro-left ankle DX: M19.079 daily for 90 day(s) July, Active Paroxetine HCl 20 MG 1 tablet in the morning Orally Once a day for 30 Days Active Vitamin D 2000 UNIT 1 tab [...] Twice a day for 30 day(s) Active Furosemide 40 MG 1 tablet [...] Information RESULTS No Results REASON FOR VISIT nexium MEDICAL (GENERAL) HISTORY Type Description Date Medical [...] Surgical History tonsillectomy/adenoidectomy 1957 Surgical History sinus surgery-[facility] Surgical History D & C 1973 Surgical History bladder suspension 1993 Surgical History cholecystectomy 2003 Surgical History Carpal Tunnel Release, left 2009 Surgical History ACDF-[facility] 09/12/13 Surgical History PLDF-[place]-(L2-S1 decompression, L4- S1-fusion) 08/21/14 Surgical History trigger finger release surgery-Dr. Tru [facility] 10/19/17 Hospitalization History viral gastronenteritis c 2 A RF, negative CT A/P, BCX, stool infectious workup 08/2011 Hospitalization History back surgery-[facility] 09/26 015 Hospitalization History acute metabolic [...] Medication Name Sig Start Date Stop Date Esomeprazole Magnesium 40 MG 1 tab Orally bid for 90 day(s) Cyclobenzaprine HCl 5 MG 1 tablet at bedtime as neede d Orally Once a day for 30 days Celebrex 200 MG 1 capsule with food Orally Once a day for 90 Flonase 50 MCG/ACT 2 sprays Nasally Once a day for 30 Next Appt Details Provider Name:Azalea Hunter, 2020-1 05-14 03:00:00 PM, [address] [place], [address], Insurance Providers Payer Name Payer Address Payer Phone Insured Name Patient Relati onship to Insured Coverage Start Date Coverage End Date [facility] [address] [address] [facility] [id number] WALDO SCHERER self
--- OUTSIDE RECORDS SUMMARY | 2020-05-02 17:11 | CCD ---
Author Author [facility] Organization [facility] Address Unknown Phone Unavailable Care Team Providers Care Rewind Operator Name Role Phone Azalea Hunter Unavailable PROBLEMS Type Condition ICD9-CM Code [id number] Code Onset Dates Condition S tatus SNOMED Code Notes Problem Hyperlipidemia E78.5 Active 63695781 Problem Osteoporosis M81.0 Active 31243273 Problem DJD (degenerative joint disease), lumbar M47.816 Active 235714298 Problem Vitamin D deficiency E55.9 Active 86561505 Problem Hypertension I10 Active 39119959 Problem Allergic rhinitis J30.9 Active 55220682 Problem Insomnia G47.00 Active 068194889 Problem Gustatory sweating L74.519 Active 91565089 Problem Clostridium difficile colitis A04.7 Active 42 7658086 Problem Ankle arthritis M19.079 Active 366839413 Problem CTS (carpal tunnel syndrome) G56.00 Active 574 71977 Problem Diastolic CHF I50.30 Active 911875753 Problem IFG (impaired fasting glucose) R73.01 Active 3 32075051 Problem LATANYA (obstructive sleep apnea) G47.33 Active 78 850998 Problem Chronic diarrhea K52.9 Active 540416791 Problem Macrocytosis D75.89 Active 143056656 Problem B12 deficiency E53.8 Active 210823419 Problem Hx of colonic polyp Z86.010 Active 074119632 Problem Chronic depression F32.9 Active 303085953 Problem Gastroesophageal reflux disease without esophagitis K21.9 Active 348922886 Problem 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 Active 379455243 Problem Ataxia R27.0 Active 06732301 Problem Bilateral pulmonary embolism I26.99 Active 592 86771 Problem Arthritis of hand, 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 Active 0000587 05 Problem Recurrent UTI N39.0 Active 496618060 Problem 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 Active 339465259 Problem Tension headache G44.209 Active 831291912 Problem Breast cancer screening Z12.39 Active 15417328 6 Problem Iron deficiency anemia, unspecified iron deficiency an emia type D50.9 Active 06408182 Problem Leukocytosis, unspecified type D72.829 Active 1 56330138 Problem Arthritis of left hand M19.042 Active 519700495 Problem 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 6403250359973 Problem 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 Active 83987985 ALLERGIES Allergen (clinical drug ingredient) Drug/Non Drug Allergy do cumented on EMR Reaction Allergy Type Onset Date Status doxycycline Doxycycline Hyclate([facility] Code:[address]-38) ques tionable Drug Allergy Active aspirin Aspirin(ND Code:[address]-58) Rash Drug Allergy Active zolpidem Ambien CR([facility] Code:[address]-78) headaches Drug Allergy Active Flexeril myalgia Drug Allergy Active atorvastatin Lipitor([facility] Code:[address]-74) myalgia Drug Allergy Active irbesartan Avapro([facility] Code:[address]-49) leg ache Drug Allergy Active Penicillin (For Allergies Use Only) Rash Drug Allerg y Active tizanidine Zanaflex([facility] Code:[address]-03) vertigo Drug Allergy Active ENCOUNTERS from 1936 to 2020-02-01 Encounter Location Date Provider Diagnosis [address] [address] Dec, Azalea Hunter IMMUNIZATIONS Vaccine Route Administration Date Status Pneumococcal [...] Intramuscular Feb 08, 2019 Admi nistered Pneumococcal 0.5mL (Prevnar 13) IM Intramuscular Dec [...] Unknown Language: Question Answer Notes Languages spoken: Argentine Methodist: Question Answer Notes [employer] 05 Shinto Sexual Hx: Question Answer Notes Had sex [...] day for 30 Days Active Ankle Brace [id number]-[id number]-Lhk - velcro-left ankle DX: M19.079 da fior [...] capsule Orally daily for 90 day(s) Active [place] 10-325 MG 1 tablet as needed Orally [...] Information RESULTS No Results REASON FOR VISIT PA cyclobenzaprine 5mg tab, QD MEDICAL (GENERAL) HISTORY Type Description Date Medical [...] of PUD/GERD Medical History adenomatous polyp by [employer] copy August 2008, diverticulosis 04/2012-[facility] Medical History [...] Surgical History tonsillectomy/adenoidectomy 1957 Surgical History sinus surgery-[facility] Surgical History D & C 1973 Surgical History bladder suspension 1993 Surgical History cholecystectomy 2003 Surgical History Carpal Tunnel Release, left 2009 Surgical History [facility]CD[facility] 09/12/13 Surgical History PLDF-[place]-(L2-S1 decompression, L4- S1-fusion) 08/21/14 Surgical History trigger finger release surgery-Dr. Tru [facility] 10/19/17 Hospitalization History viral gastronenteritis c 2 A RF, negative CT A/P, BCX, stool infectious workup 08/2011 Hospitalization History back surgery-[facility] 09/26 015 Hospitalization History acute metabolic encephalopat [...] 30 days Next Appt Details Provider Name:Azalea Hunter 2019-05-14 03:00:00 PM, [address] [place], [address], Insurance Providers Payer Name Payer Address Payer Phone Insured Name Patient Relati onship to Insured Coverage Start Date Coverage End Date [facility] [address] [address] [facility] [id number] [phone] WALDO SCHERER self
--- OUTSIDE RECORDS SUMMARY | 2020-05-02 17:11 | CCD ---
Author Organization Unknown Address [address] [place] [address] Phone [phone] Care Team Providers Care Teller Coordinator Name Role Phone NEIL SHEARER MD 3 [phone] Allergies Code Code System Name Reaction Severity [...] mg capsule TAKE 1 CAPSULE BY MOUTH TWICE DAILY Active Not available gabapentin 600 mg [...] release Completed 02/04/2020 paroxetine 20 mg tablet Completed 02/04/20 permethrin 5 % topical cream Completed 01/2018 potassium chloride ER 10 mEq capsule,extended release Active Not available prednisone 20 mg tablet Completed 02/04/20 rosuvastatin 40 mg tablet TK 1 T [...] Screen, Urine No observation recorde d. 11/24/2018 [employer] Pdf Report UR No observation recorded. [facility]: [address] [place] [address] 11/24/2018 Drug Screen, Urine Amphetamines: negati ve Main Office: [address] [address] [address], [place] Thc negative Main Off ice: [address] [facility] [address] [place] Cocaine: negative Main Office: [address] [address] [address] [place] Opiates: positive Main Office: [address] [address] [address] [place] Barbiturates: negative Main Office: [address] [address] [address] [place] Benzodiazepines: negative Main Office: [address] [address] [address] [place] Methamphetamine negative Main Office: [address] [facility] [address] [place] Pcp positive Main Off ice: [address] [facility] [address] [place] Mtd positive Main Off ice: [address] [facility] [address] [place] Oxy negative Main Off ice: [address] [address] [address], [place] 11/24/2018 Cyclobenzaprine, Quant, Urine U Cyclobenzaprine Ur Ql >=10 NG/mL >=10 NG/mL Final [employer] [facility]: [address] [place] [address] U Cyclobenzaprine Ur Cfm-mcnc 113 NG/m L >=10 NG/mL Final [employer]: [address] [place] [address] U Norcyclobenzapr Ur Cfm-mcnc 84 NG/mL >=10 NG/mL Final [employer] [facility]: [address] [place] [address] 11/24/2018 Drug Screen, Urine U Buprenorphine Ur Ql Cfm <1 NG/mL >=1 NG/mL Final [employer] [facility]: [address] [place] [address] U Alcohol Metabolites Ur Ql Cfm <200 N G/mL >=200 NG/mL Final [employer] [facility]: [address] [place] [address] U Ethyl Glucuronide Ur Cfm-mcnc <500 N G/mL >=500 NG/mL Final [facility]: [address] [place] [address] U Ethyl Sulfate Ur Cfm-mcnc <200 NG/mL >=200 NG/mL Final [employer] [facility]: [address] [place] [address] U Amphetamines Ur Ql Cfm <0 NG/mL >=0 NG/mL Final [employer] [facility]: [address] [place] [address] U Tapentadol Ur Ql Cfm <100 NG/mL >=10 0 NG/mL Final [employer] [facility]: [address] [place] [address] U Benzodiaz Ur Ql Cfm <50 NG/mL >=50 N G/mL Final [employer] [facility]: [address] [place] [address] U Gabapentinpregabalin Ur Ql Cfm >=5 m cg/mL >=5 mcg/mL Final [facility]: [address] [place] [address] U Gabapentin Ur Cfm-mcnc 467 mcg/mL >= 5 mcg/mL Final [facility]: [address] [place] [address] U Bze Ur Ql Cfm <50 NG/mL >=50 NG/mL F inal [employer] [facility]: [address] [place] [address] U Opiates Ur Ql Cfm >=100 NG/mL >=100 NG/mL Final [employer] [facility]: [address] [place] [address] U Dhc Ur Cfm-mcnc 812 NG/mL >=100 NG/m L Final [employer] [facility]: [address] [place] [address] U Hydrocodone Ur Cfm-mcnc 1510 NG/mL > =100 NG/mL Final [facility]: [address] [place] [address] U Norhydrocodone Ur Cfm-mcnc 3050 NG/m L >=100 NG/mL Final [facility] [facility]: [address] [place] [address] U Hydromorphone Ur Cfm-mcnc 184 NG/mL >=100 NG/mL Final [employer] [facility]: [address] [place] [address] U 6Mam Ur Ql Cfm <10 NG/mL >=10 NG/mL Final [facility]: [address] [place] [address] U Methadone Ur Ql Cfm <200 NG/mL >=200 NG/mL Final [facility]: [address] [place] [address] U Meperidine Ur Ql Cfm <100 NG/mL >=10 0 NG/mL Final [facility]: [address] [place] [address] U Fentanyl+norfentanyl Ur Ql Cfm <5 NG /mL >=5 NG/mL Final [facility]: [address] [place] [address] U Carisoprodol+meprob Ur Ql Scn <200 N G/mL >=200 NG/mL Final [facility]: [address] [place] [address] U Tramadol Ur Ql Cfm <100 NG/mL >=100 NG/mL Final [facility]: [address] [place] [address] U Cotinine Ur Ql Cfm <125 NG/mL >=125 NG/mL Final [facility]: [address] [place] [address] U ABNORMAL pH Ur 9.12 4.5 - 9.0 Final [employer]: [address] [place] [address] U Normal Creat Ur-mcnc 92.2 mg/dL 20 - 370 mg /dL Final [facility]: [address] [place] [address] 11/24/2018 Drug Screen, Urine UR Normal Hydrocodone Ur CM P 5560 NG/mL >=100 NG/mL Final [employer] [facility]: [address] [place] [address] UR Normal Gabapentin Ur CMP 467 mcg/mL >=5 mcg /mL Final [employer]: [address] [place] [address] UR Normal Cyclobenzaprine Ur CMP 198 NG/mL >=1 0 NG/mL Final [facility]: [address] [place] [address] Past Encounters 02/04/2020 Inflammation of Sacroiliac Joint; Degeneration of Lumbar Intervertebral Disc; Degeneration of Lumbosacral Intervertebral Disc; Displacement of Lumbar Intervertebral Disc without Myelopathy; Intervertebral Disc Disorder; Spondylosis without Myelopathy; Lumbosacral Spondylosis without Myelopathy; Lumbar Radiculopathy; Post-laminectomy Syndrome; Lumbar Spondylolisthesis; Greater Trochanteric Pain Syndrome; Long-term Drug Therapy; Lumbosacral Radiculopathy Maki Gastelum, AUTOMATIC MACHINES SUPERVISOR: [id number] [address], Ph. 12/19/2019 Inflammation of Sacroiliac Joint; Degeneration of Lumbar Intervertebral Disc; Degeneration of Lumbosacral Intervertebral Disc; Displacement of Lumbar Intervertebral Disc without Myelopathy; Intervertebral Disc Disorder; Spondylosis without Myelopathy; Lumbosacral Spondylosis without Myelopathy; Lumbar Radiculopathy; Post-laminectomy Syndrome; Lumbar Spondylolisthesis; Greater Trochanteric Pain Syndrome; Long-term Drug Therapy; Lumbosacral Radiculopathy Maki Gastelum, AUTOMATIC MACHINES SUPERVISOR: [id number] [address], Ph. 11/07/2019 Inflammation of Sacroiliac Joint; Degeneration of Lumbar Intervertebral Disc; Degeneration of Lumbosacral Intervertebral Disc; Displacement of Lumbar Intervertebral Disc without Myelopathy; Intervertebral Disc Disorder; Spondylosis without Myelopathy; Lumbosacral Spondylosis without Myelopathy; Lumbar Radiculopathy; Post-laminectomy Syndrome; Lumbar Spondylolisthesis; Greater Trochanteric Pain Syndrome; Long-term Drug Therapy; Lumbosacral Radiculopathy Maki Gastelum, AUTOMATIC MACHINES SUPERVISOR: [id number] [address], Ph. 09/26/2019 Inflammation of Sacroiliac Joint; Degeneration of Lumbar Intervertebral Disc; Degeneration of Lumbosacral Intervertebral Disc; Displacement of Lumbar Intervertebral Disc without Myelopathy; Intervertebral Disc Disorder; Spondylosis without Myelopathy; Lumbosacral Spondylosis without Myelopathy; Lumbar Radiculopathy; Post-laminectomy Syndrome; Lumbar Spondylolisthesis; Greater Trochanteric Pain Syndrome; Long-term Drug Therapy; Lumbosacral Radiculopathy Maki Gastelum, AUTOMATIC MACHINES SUPERVISOR: [address] [address], Ph. 08/08/2019 Inflammation of Sacroiliac Joint; Degeneration of Lumbar Intervertebral Disc; Degeneration of Lumbosacral Intervertebral Disc; Displacement of Lumbar Intervertebral Disc without Myelopathy; Intervertebral Disc Disorder; Spondylosis without Myelopathy; Lumbosacral Spondylosis without Myelopathy; Lumbar Radiculopathy; Post-laminectomy Syndrome; Lumbar Spondylolisthesis; Greater Trochanteric Pain Syndrome; Long-term Drug Therapy; Lumbosacral Radiculopathy Maki Gastelum AUTOMATIC MACHINES SUPERVISOR: [id number] [facility] [address], [place] [address], Ph. 07/11/2019 Inflammation of Sacroiliac Joint; Degeneration of Lumbar Intervertebral Disc; Degeneration of Lumbosacral Intervertebral Disc; Displacement of Lumbar Intervertebral Disc without Myelopathy; Intervertebral Disc Disorder; Spondylosis without Myelopathy; Lumbosacral Spondylosis without Myelopathy; Lumbar Radiculopathy; Post-laminectomy Syndrome; Lumbar Spondylolisthesis; Greater Trochanteric Pain Syndrome; Long-term Drug Therapy; Lumbosacral Radiculopathy Maki Gastelum AUTOMATIC MACHINES SUPERVISOR: [id number] [address], Ph. 05/16/2019 Inflammation of Sacroiliac Joint; Degeneration of Lumbar Intervertebral Disc; Degeneration of Lumbosacral Intervertebral Disc; Displacement of Lumbar Intervertebral Disc without Myelopathy; Intervertebral Disc Disorder; Spondylosis without Myelopathy; Lumbosacral Spondylosis without Myelopathy; Lumbar Radiculopathy; Post-laminectomy Syndrome; Lumbar Spondylolisthesis; Greater Trochanteric Pain Syndrome; Long-term Drug Therapy; Lumbosacral Radiculopathy Maki Gastelum AUTOMATIC MACHINES SUPERVISOR: [id number] [facility] [address], [place] [address], Ph. 03/29/2019 Inflammation of Sacroiliac Joint; Degeneration of Lumbar Intervertebral Disc; Degeneration of Lumbosacral Intervertebral Disc; Displacement of Lumbar Intervertebral Disc without Myelopathy; Intervertebral Disc Disorder; Spondylosis without Myelopathy; Lumbosacral Spondylosis without Myelopathy; Lumbar Radiculopathy; Post-laminectomy Syndrome; Lumbar Spondylolisthesis; Greater Trochanteric Pain Syndrome; Long-term Drug Therapy Maki Gastelum AUTOMATIC MACHINES SUPERVISOR: [address] [address], [place] [address], Ph. 02/14/2019 Inflammation of Sacroiliac Joint; Degeneration of Lumbar Intervertebral Disc; Degeneration of Lumbosacral Intervertebral Disc; Displacement of Lumbar Intervertebral Disc without Myelopathy; Intervertebral Disc Disorder; Spondylosis without Myelopathy; Lumbosacral Spondylosis without Myelopathy; Lumbar Radiculopathy; Post-laminectomy Syndrome; Lumbar Spondylolisthesis; Greater Trochanteric Pain Syndrome; Long-term Drug Therapy Maki Gastelum AUTOMATIC MACHINES SUPERVISOR: [id number] [address], Ph. 01/03/2019 Inflammation of Sacroiliac Joint; Degeneration of Lumbar Intervertebral Disc; Degeneration of Lumbosacral Intervertebral Disc; Displacement of Lumbar Intervertebral Disc without Myelopathy; Intervertebral Disc Disorder; Spondylosis without Myelopathy; Lumbosacral Spondylosis without Myelopathy; Lumbar Radiculopathy; Post-laminectomy Syndrome; Lumbar Spondylolisthesis; Greater Trochanteric Pain Syndrome; Long-term Drug Therapy Maki Gastelum AUTOMATIC MACHINES SUPERVISOR: [address] [address], Ph. 12/13/2018 Inflammation of Sacroiliac Joint; Degeneration of Lumbar Intervertebral Disc; Degeneration of Lumbosacral Intervertebral Disc; Displacement of Lumbar Intervertebral Disc without Myelopathy; Intervertebral Disc Disorder; Spondylosis without Myelopathy; Lumbosacral Spondylosis without Myelopathy; Lumbar Radiculopathy; Post-laminectomy Syndrome; Lumbar Spondylolisthesis; Greater Trochanteric Pain Syndrome; Long-term Drug Therapy Tien Neves MD: [address] [address], [place] [address], Ph. 11/24/2018 Inflammation of Sacroiliac Joint; Degeneration of Lumbar Intervertebral Disc; Degeneration of Lumbosacral Intervertebral Disc; Displacement of Lumbar Intervertebral Disc without Myelopathy; Intervertebral Disc Disorder; Spondylosis without Myelopathy; Lumbosacral Spondylosis without Myelopathy; Lumbar Radiculopathy; Post-laminectomy Syndrome; Lumbar Spondylolisthesis; Greater Trochanteric Pain Syndrome; Long-term Drug Therapy Maki Gastelum AUTOMATIC MACHINES SUPERVISOR: [address] [address], Ph. 10/25/2018 Inflammation of Sacroiliac Joint; Degeneration of Lumbar Intervertebral Disc; Degeneration of Lumbosacral Intervertebral Disc; Displacement of Lumbar Intervertebral Disc without Myelopathy; Intervertebral Disc Disorder; Spondylosis without Myelopathy; Lumbosacral Spondylosis without Myelopathy; Lumbar Radiculopathy; Post-laminectomy Syndrome; Lumbar Spondylolisthesis; Greater Trochanteric Pain Syndrome Maki Gastelum AUTOMATIC MACHINES SUPERVISOR: [id number] [address], Ph. 09/06/2018 Inflammation of Sacroiliac Joint; Degeneration of Lumbar Intervertebral Disc; Degeneration of Lumbosacral Intervertebral Disc; Displacement of Lumbar Intervertebral Disc without Myelopathy; Intervertebral Disc Disorder; Spondylosis without Myelopathy; Lumbosacral Spondylosis without Myelopathy; Lumbar Radiculopathy; Post-laminectomy Syndrome; Lumbar Spondylolisthesis; Greater Trochanteric Pain Syndrome Maki Gastelum AUTOMATIC MACHINES SUPERVISOR: [address] [address], Ph. 07/26/2018 Inflammation of Sacroiliac Joint; Degeneration of Lumbar Intervertebral Disc; Degeneration of Lumbosacral Intervertebral Disc; Displacement of Lumbar Intervertebral Disc without Myelopathy; Intervertebral Disc Disorder; Spondylosis without Myelopathy; Lumbosacral Spondylosis without Myelopathy; Lumbar Radiculopathy; Post-laminectomy Syndrome; Lumbar Spondylolisthesis; Greater Trochanteric Pain Syndrome Maki Gastelum AUTOMATIC MACHINES SUPERVISOR: [address] [address], Ph. 07/05/2018 Post-laminectomy Syndrome; Lumbar Radiculopathy; Degeneration of Lumbar Intervertebral Disc; Degeneration of Lumbosacral Intervertebral Disc; Displacement of Lumbar Intervertebral Disc without Myelopathy; Intervertebral Disc Disorder; Spondylosis without Myelopathy; Lumbosacral Spondylosis without Myelopathy; Inflammation of Sacroiliac Joint; Lumbar Spondylolisthesis; Greater Trochanteric Pain Syndrome Tien Neves MD: [address] [address], Ph. 06/14/2018 Inflammation of Sacroiliac Joint; Degeneration of Lumbar Intervertebral Disc; Degeneration of Lumbosacral Intervertebral Disc; Displacement of Lumbar Intervertebral Disc without Myelopathy; Intervertebral Disc Disorder; Spondylosis without Myelopathy; Lumbosacral Spondylosis without Myelopathy; Lumbar Radiculopathy; Post-laminectomy Syndrome; Lumbar Spondylolisthesis; Greater Trochanteric Pain Syndrome Tien Neves MD: [id number] [address], Ph. 06/01/2018 Inflammation of Sacroiliac Joint; Degeneration of Lumbar Intervertebral Disc; Degeneration of Lumbosacral Intervertebral Disc; Displacement of Lumbar Intervertebral Disc without Myelopathy; Intervertebral Disc Disorder; Spondylosis without Myelopathy; Lumbosacral Spondylosis without Myelopathy; Lumbar Radiculopathy; Post-laminectomy Syndrome; Lumbar Spondylolisthesis; Greater Trochanteric Pain Syndrome Tien Neves MD: [address] [address], Ph. 05/19/2018 Inflammation of Sacroiliac Joint; Degeneration of Lumbar Intervertebral Disc; Degeneration of Lumbosacral Intervertebral Disc; Displacement of Lumbar Intervertebral Disc without Myelopathy; Intervertebral Disc Disorder; Spondylosis without Myelopathy; Lumbosacral Spondylosis without Myelopathy; Lumbar Radiculopathy; Post-laminectomy Syndrome; Lumbar Spondylolisthesis; Greater Trochanteric Pain Syndrome Maki Gastelum NP: [id number] [address], Ph. 04/13/2018 Inflammation of Sacroiliac Joint; Degeneration of Lumbar Intervertebral Disc; Degeneration of Lumbosacral Intervertebral Disc; Displacement of Lumbar Intervertebral Disc without Myelopathy; Intervertebral Disc Disorder; Spondylosis without Myelopathy; Lumbosacral Spondylosis without Myelopathy; Lumbar Radiculopathy; Post-laminectomy Syndrome; Lumbar Spondylolisthesis; Greater Trochanteric Pain Syndrome Tien Neves MD: [address], [place] [address], Ph. 03/07/2018 Inflammation of Sacroiliac Joint; Degeneration of Lumbar Intervertebral Disc; Degeneration of Lumbosacral Intervertebral Disc; Displacement of Lumbar Intervertebral Disc without Myelopathy; Intervertebral Disc Disorder; Spondylosis without Myelopathy; Lumbosacral Spondylosis without Myelopathy; Lumbar Radiculopathy; Post-laminectomy Syndrome; Lumbar Spondylolisthesis; Greater Trochanteric Pain Syndrome Maki Gastelum NP: [address], [place] [address], Ph. Social History Tobacco Smoking Status Never [...]
--- OUTSIDE RECORDS SUMMARY | 2020-05-02 17:12 | CCD ---
Author Author [facility] Address Unknown Phone Unavailable Care Team Providers Care Revenue Coordinator Name Role Phone Ad CURIEL DPM Unavailable Unavailable Ad CURIEL DPM Unavailable Unavailable Ad CURIEL DPM Unavailable Unavailable Ad CURIEL DPM Unavailable Unavailable Ad CURIEL DPM Unavailable Unavailable Ad CURIEL DPM Unavailable Unavailable Ad CURIEL DPM Unavailable Unavailable Ad CURIEL DPM Unavailable Unavailable Ad CURIEL DPM Unavailable Unavailable Ad CURIEL DPM Unavailable Unavailable MAJAK, R JOSHUA DPM Unavailable Unavailable MAJAK, R JOSHUA DPM Unavailable Unavailable MAJAK, R JOSHUA DPM Unavailable Unavailable MAJAK, R JOSHUA DPM Unavailable Unavailable MAJAK, R JOSHUA DPM Unavailable Unavailable MAJAK, R JOSHUA DPM Unavailable Unavailable MAJAK, R JOSHUA DPM Unavailable Unavailable MAJAK, R JOSHUA DPM Unavailable Unavailable MAJAK, R JOSHUA DPM Unavailable Unavailable MAJAK, R JOSHUA DPM Unavailable Unavailable MAJAK, R JOSHUA DPM Unavailable Unavailable MAJAK, R JOSHUA DPM Unavailable Unavailable MAJAK, R OJSHUA DPM Unavailable Unavailable MAJAK, R JOSHUA DPM Unavailable Unavailable MAJAK, R JOSHUA DPM Unavailable Unavailable MAJAK, R JOSHUA DPM Unavailable Unavailable MAJAK, R JOSHUA DPM Unavailable Unavailable MAJAK, R JOSHUA DPM Unavailable Unavailable MAJAK, R JOSHUA DPM Unavailable Unavailable MAJAK, R JOSHUA DPM Unavailable Unavailable Jumalon, M Maki SOFTWARE DESIGN ANALYST Unavailable Unavailable Jumalon, M Maki SOFTWARE DESIGN ANALYST Unavailable Unavailable Jumalon, M Maki SOFTWARE DESIGN ANALYST Unavailable Unavailable Jumalon, M Maki SOFTWARE DESIGN ANALYST Unavailable Unavailable Jumalon, M Maki SOFTWARE DESIGN ANALYST Unavailable Unavailable Jumalon, M Maki SOFTWARE DESIGN ANALYST Unavailable Unavailable Jumalon, M Maki SOFTWARE DESIGN ANALYST Unavailable Unavailable Jumalon, M Maki SOFTWARE DESIGN ANALYST Unavailable Unavailable Jumalon, M Maki SOFTWARE DESIGN ANALYST Unavailable Unavailable Jumalon, M Maki SOFTWARE DESIGN ANALYST Unavailable Unavailable Jumalon, M Maki SOFTWARE DESIGN ANALYST Unavailable Unavailable Jumalon, M Maki SOFTWARE DESIGN ANALYST Unavailable Unavailable Jumalon, M Maki SOFTWARE DESIGN ANALYST Unavailable Unavailable Jumalon, M Maki SOFTWARE DESIGN ANALYST Unavailable Unavailable Jumalon, M Maki SOFTWARE DESIGN ANALYST Unavailable Unavailable Jumalon, M Maki SOFTWARE DESIGN ANALYST Unavailable Unavailable Jumalon, M Maki SOFTWARE DESIGN ANALYST Unavailable Unavailable Jumalon, M Maki SOFTWARE DESIGN ANALYST Unavailable Unavailable Jumalon, M Maki SOFTWARE DESIGN ANALYST Unavailable Unavailable Jumalon, M Maki SOFTWARE DESIGN ANALYST Unavailable Unavailable Jumalon, M Maki SOFTWARE DESIGN ANALYST Unavailable Unavailable Jumalon, M Maki SOFTWARE DESIGN ANALYST Unavailable Unavailable Jumalon, M Maki SOFTWARE DESIGN ANALYST Unavailable Unavailable Jumalon, M Maki SOFTWARE DESIGN ANALYST Unavailable Unavailable Jumalon, M Maki SOFTWARE DESIGN ANALYST Unavailable Unavailable Jumalon, M Maki SOFTWARE DESIGN ANALYST Unavailable Unavailable Jumalon, M Maki SOFTWARE DESIGN ANALYST Unavailable Unavailable Jumalon, M Maki SOFTWARE DESIGN ANALYST Unavailable Unavailable AmadoAvatr MD Unavailable Unavailable Amado, Avtar Patel MD Unavailable Unavailable Amado, Avtar Patel MD Unavailable Unavailable Amado, Avtar Patel MD Unavailable Unavailable Amado, Avtar Patel MD Unavailable Unavailable Amado, Avtar Patel MD Unavailable Unavailable Amado, Avtar Patel MD Unavailable Unavailable Amado, Avtar Patel MD Unavailable Unavailable Amado, Avtar Patel MD Unavailable Unavailable Amado, Avtar Patel MD Unavailable Unavailable Amado, Avtar Patel MD Unavailable Unavailable Amado, Avtar Patel MD Unavailable Unavailable AmadoAvtar MD Unavailable Unavailable Amado, Avtar Patel MD Unavailable Unavailable Amado, Avtar Patel MD Unavailable Unavailable Amado, Avtar Patel MD Unavailable Unavailable Amado, Avtar Patel MD Unavailable Unavailable Amado, Avtar Patel MD Unavailable Unavailable AmadoAvtar MD Unavailable Unavailable AmadoAvtar MD Unavailable Unavailable AmadoAvtar guerrero MD Unavailable Unavailable Amado, Avtar Patel MD Unavailable Unavailable AmadoAvtar MD Unavailable Unavailable Amado, Avtar Patel MD Unavailable Unavailable Amado, Avtar Patel MD Unavailable Unavailable AmadoAvtar MD Unavailable Unavailable AmadoAvtar MD Unavailable Unavailable AmadoAvtar MD Unavailable Unavailable AmadoAvtar MD Unavailable Unavailable AmadoAvtar MD Unavailable Unavailable AmadoAvtar guerrero MD Unavailable Unavailable AmadoAvtar MD Unavailable Unavailable AmadoAvtar MD Unavailable Unavailable AmadoAvtar MD Unavailable Unavailable AmadoAvtar MD Unavailable Unavailable AmadoAvtar MD Unavailable Unavailable AmadoAvtar MD Unavailable Unavailable AmadoAvtar MD Unavailable Unavailable AmadoAvtar guerrero MD Unavailable Unavailable AmadoAvtar MD Unavailable Unavailable AmadoAvtar MD Unavailable Unavailable AmadoAvtar guerrero MD Unavailable Unavailable AmadoAvtar MD Unavailable Unavailable AmadoAvtar guerrero MD Unavailable Unavailable AmadoAvtar guerrero MD Unavailable Unavailable AmadoAvtar MD Unavailable Unavailable AmadoAvtar guerrero MD Unavailable Unavailable AmadoAvtar guerrero MD Unavailable Unavailable AmadoAvtar guerrero MD Unavailable Unavailable AmadoAvtar guerrero MD Unavailable Unavailable AmadoAvtar guerrero MD Unavailable Unavailable AmadoAvtar MD Unavailable Unavailable AmadoAvtar guerrero MD Unavailable Unavailable AmadoAvtar guerrero MD Unavailable Unavailable AmadoAvtar MD Unavailable Unavailable AmadoAvtar guerrero MD Unavailable Unavailable AmadoAvtar MD Unavailable Unavailable DRAZEK, I JUAN PA Unavailable Unavailable DRAZEK, I JUAN PA Unavailable Unavailable DRAZEK, I JUAN PA Unavailable Unavailable DRAZEK, I JUAN PA Unavailable Unavailable DRAZEK, I JUAN PA Unavailable Unavailable DRAZEK, I JUAN PA Unavailable Unavailable DRAZEK, I JUAN PA Unavailable Unavailable DRAZEK, I JUAN PA Unavailable Unavailable DRAZEK, I JUAN PA Unavailable Unavailable DRAZEK, I JUAN PA Unavailable Unavailable DRAZEK, I JUAN PA Unavailable Unavailable DRAZEK, I JUAN PA Unavailable Unavailable DRAZEK, I JUAN PA Unavailable Unavailable DRAZEK, I JUAN PA Unavailable Unavailable DRAZEK, I JUAN PA Unavailable Unavailable DRAZEK, I JUAN PA Unavailable Unavailable DRAZEK, I JUAN PA Unavailable Unavailable DRAZEK, I JUAN PA Unavailable Unavailable DRAZEK, I JUAN PA Unavailable Unavailable DRAZEK, I JUAN PA Unavailable Unavailable DRAZEK, I JUAN PA Unavailable Unavailable DRAZEK, I JUAN PA Unavailable Unavailable DRAZEK, I JUAN PA Unavailable Unavailable DRAZEK, I JUAN PA Unavailable Unavailable DRAZEK, I JUAN PA Unavailable Unavailable DRAZEK, I JUAN PA Unavailable Unavailable DRAZEK, I JUAN PA Unavailable Unavailable DRAZEK, I JUAN PA Unavailable Unavailable DRAZEK, I JUAN PA Unavailable Unavailable DRAZEK, I JUAN PA Unavailable Unavailable Hernandez, Eduardo Unavailable Unavailable Hernandez, Eduardo Unavailable Unavailable Hernandez, Eduardo Unavailable Unavailable Hernandez, Eduardo Unavailable Unavailable Hernandez, Eduardo Unavailable Unavailable Hernandez, Eduardo Unavailable Unavailable Hernandez, Eduardo Unavailable Unavailable Hernandez, Eduardo Unavailable Unavailable Hernandez, Eduardo Unavailable Unavailable Hernandez, Eduardo Unavailable Unavailable Hernandez, Edaurdo Unavailable Unavailable Hernandez, Eduardo Unavailable Unavailable Hernandez, Eduardo Unavailable Unavailable Hernandez, Eduardo Unavailable Unavailable Hernandez, Eduardo Unavailable Unavailable Hernandez, Eduardo Unavailable Unavailable Hernandez, Eduardo Unavailable Unavailable Hernandez, Eduardo Unavailable Unavailable Hernandez, Eduardo Unavailable Unavailable Hernandez, Eduardo Unavailable Unavailable Hernandez, Eduardo Unavailable Unavailable Hernandez, Eduardo Unavailable Unavailable Hernandez, Eduardo Unavailable Unavailable Hernandez, Eduardo Unavailable Unavailable Hernandez, Eduardo Unavailable Unavailable Hernandez, Eduardo Unavailable Unavailable Hernandez, Eduardo Unavailable Unavailable Hernandez, Eduardo Unavailable Unavailable Hernandez, Eduardo Unavailable Unavailable Hernandez, Eduardo Unavailable Unavailable Hernandez, Eduardo Unavailable Unavailable Hernandez, Eduardo Unavailable Unavailable Hernandez, Eduardo Unavailable Unavailable Hernandez, Eduardo Unavailable Unavailable Hernandez, Eduardo Unavailable Unavailable Hernandez, Eduardo Unavailable Unavailable Hernandez, Eduardo Unavailable Unavailable Hernandez, Eduardo Unavailable Unavailable Hernandez, Eduardo Unavailable Unavailable Hernandez, Eduardo Unavailable Unavailable Hernandez, Eduardo Unavailable Unavailable Hernandez, Eduardo Unavailable Unavailable Hernandez, Eduardo Unavailable Unavailable Hernandez, Eduardo Unavailable Unavailable Re-disclosure Warning The records that you are about to access may contain information from federally-assisted alcohol or drug abuse programs. If such information is present, then the following federally mandated warning applies: This information has been disclosed to you from records protected by federal confidentiality rules (42 CFR part 2). The federal rules prohibit you from making any further disclosure of this information unless further disclosure is expressly permitted by the written consent of the person to whom it pertains or as otherwise permitted by 42 CFR part 2. A general authorization for the release of medical or other information is NOT sufficient for this purpose. The Federal rules restrict any use of the information to criminally investigate or prosecute any alcohol or drug abuse patient.The records that you are about to access may contain highly sensitive health information, the redisclosure of which is protected by Article 27-F of the [facility] Public Health law. If you continue you may have access to information: Regarding HIV / AIDS; Provided by facilities licensed or operated by the [facility] Office of Mental Health; or Provided by the [facility] Office for People With Developmental Disabilities. If such information is present, then the following [facility] mandated warning applies: This information has been disclosed to you from confidential records which are protected by state law. State law prohibits you from making any further disclosure of this information without the specific written consent of the person to whom it pertains, or as otherwise permitted by law. Any unauthorized further disclosure in violation of state law may result in a fine or group home sentence or both. A general authorization for the release of medical or other information is NOT sufficient authorization for further disc losure. Allergies and Adverse Reactions Type Description Substance Reaction Status Data Source(s ) Drug allergy Avapro irbesartan leg ache Active eCW1 ([facility]) Drug allergy Lipitor atorvastatin myalgia Active eCW1 ([facility]) Drug allergy Ambien CR zolpidem headaches Active eCW1 ([facility]) aspirin Aspirin Aspirin Rash Active eCW1 ([facility]) Drug allergy Doxycycline Hyclate Doxycycline questionable Active eCW1 ([facility]) Flexeril Flexeril Flexeril myalgia Active eCW1 ([facility]) Zanaflex Zanaflex tizanidine 6 MG Oral Capsule [Zanaflex] vertigo Active eCW1 ([facility]) Flexeril Flexeril Flexeril myalgia Active eCW1 ([facility]) Flexeril Flexeril Flexeril myalgia Active eCW1 ([facility]) Flexeril Flexeril Flexeril myalgia Active eCW1 ([facility]) Flexeril Flexeril Flexeril myalgia Active eCW1 ([facility]) Flexeril Flexeril Flexeril myalgia Active eCW1 ([facility]) Flexeril Flexeril Flexeril myalgia Active eCW1 ([facility]) Flexeril Flexeril Flexeril myalgia Active eCW1 ([facility]) Flexeril Flexeril Flexeril myalgia Active eCW1 ([facility]) Family History Family Member Name Family Member Gender Family Member Status Date o f Status Description Data Source(s) Unknown Unknown Problem MEDENT ([facility]) Unknown Unknown Problem MEDENT ([facility]) Unknown Male Problem MEDENT ([facility] () Unknown Female Problem MEDENT ([facility]) Unknown Female Problem MEDENT ([facility]) Unknown Female Problem MEDENT ([facility]) Encounters Encounter Providers Location Date Indications Data Source(s ) Unknown [address] [facility] [id number] 04/24/2020 12:00:00 AM EST eCW1 ([facility]) OFFICE OUTPATIENT VISIT 15 MINUTES Attender: JUAN ZAPATA Phys ical Therapy 04/18/2020 02:45:00 PM EST MEDENT ([facility]) Unknown [address] [facility] [id number] 04/15/2020 12:00:00 AM EST eCW1 ([facility]) Maki Gastelum, AIDS COUNSELOR: [address], [place] [address], Ph. Attender: Maki Gastelum [facility] - [facility] - [facility] 04/08/2020 12:00:00 AM EST ATHE NA ([facility]) Unknown [address] [facility] [place] [address] 04/07/2020 12:00:00 AM EST eCW1 ([facility]) Outpatient [address] [facility] [address] 04/07/2020 12:00:00 AM EST eCW1 ([facility]) Unknown [address] [facility] [address] 04/04/2020 12:00:00 AM EST eCW1 ([facility]) Unknown [address] [facility] [address] 04/01/2020 12:00:00 AM EST eCW1 ([facility]) Unknown [address] [facility] [address] 03/26/2020 12:00:00 AM EST eCW1 ([facility]) Unknown [address] [facility] [address] 03/06/2020 12:00:00 AM EST eCW1 ([facility]) Maki Gastelum, AIDS COUNSELOR: [address], [place] [address], Ph. Attender: Maki Gastelum [facility] - [facility] - [facility] 03/04/2020 12:00:00 AM EST ATHE NA ([facility]) Maki Gastelum, AIDS COUNSELOR: [address], [place] [address], Ph. Attender: Maki Gastelum [facility] - [facility] - [facility] 03/04/2020 12:00:00 AM EST ATHE NA ([facility]) Unknown [address] [facility] [place] [address] 02/12/2020 12:00:00 AM EST eCW1 ([facility]) Unknown [address] [facility] [address] 02/05/2020 12:00:00 AM EST eCW1 ([facility]) Maki Gastelum, AIDS COUNSELOR: [address], [place] [address], Ph. Attender: Maki Gastelum [facility] - [facility] Office 02/04/2020 12:00:00 AM EST ATHE NA ([facility]) Maki Gastelum, AIDS COUNSELOR: [address], [place] [address], Ph. Attender: Maki Gastelum [facility] - [facility] Office 02/04/2020 12:00:00 AM EST ATHE NA ([facility]) Maki Gastelum, AIDS COUNSELOR: [address], [place] [address], Ph. Attender: Maki Gastelum [facility] - [facility] Office 02/04/2020 12:00:00 AM EST ATHE NA ([facility]) Office Visit Attender: JOSHUA CURIEL [facility] Office 06/2019 02:00:00 PM EST MEDENT ([facility] [place] [address] [facility] [address] 01/30/2020 12:00:00 AM EST eCW1 ([facility]) Unknown [address] [facility] [address] 01/15/2020 12:00:00 AM EDT eCW1 ([facility]) Office Visit, Est Pt., Level 3 [address] [place] [address] 01/15/2020 12:00:00 AM EDT eCW1 ([facility]) Unknown [address] [facility] [place] [address] 01/04/2020 12:00:00 AM EDT eCW1 ([facility]) Unknown [address] [facility] [place] [address] 01/03/2020 12:00:00 AM EDT eCW1 ([facility]) Office Visit Attender: JUAN ZAPATA Physical Therapy 2019 10:40:00 AM EDT MEDLLUVIA ([facility]) Maki Tr Gastelum, AIDS COUNSELOR: [address], [place] [address], Ph. Attender: Maki Gastelum [facility] 12/19/2019 12:00:00 AM EDT ATHE NA ([facility]) Maki Gastelum, AIDS COUNSELOR: [address], [place] [address], Ph. Attender: Maki Gastelum [facility] 12/19/2019 12:00:00 AM EDT ATHE NA ([facility]) Maki Gastelum, AIDS COUNSELOR: [address], [place] [address], Ph. Attender: Maki Gastelum [facility] 12/19/2019 12:00:00 AM EDT ATHAvtar NA ([facility]) Maki Gastelum, AIDS COUNSELOR: [address], [place] [address], Ph. Attender: Maki Gastelum [facility] 12/19/2019 12:00:00 AM EDT ATHE NA ([facility]) OFFICE OUTPATIENT NEW 30 MINUTES Attender: Eduardo Hernandez Physical Therapy 12/14/2019 03:00:00 PM EDT MEDENT ([facility]) OFFICE OUTPATIENT VISIT 15 MINUTES Attender: JUAN Barrientos ical Therapy 12/05/2019 03:00:00 PM EDT MEDENT ([facility]) Maki Armando Oriana, AIDS COUNSELOR: [address], [place] [address], Ph. Attender: Maki Pappasjamshid [facility] - [facility] 11/07/2019 12:00:00 AM EDT ATHAvtar CHAIREZ ([facility]) Maki Armando Mianjamshid, AIDS COUNSELOR: [address], [place] [address], Ph. Attender: Maki Gastelum [facility] 11/07/2019 12:00:00 AM EDT ATHE NA ([facility]) Makiavtar Ordoñezliam Oriana, AIDS COUNSELOR: [address], [place] [address], Ph. Attender: Maki Oriana [facility] - [facility] 11/07/2019 12:00:00 AM EDT ATHE NA ([facility]) Makidelfino Gastelum, AIDS COUNSELOR: [address], [place] [address], Ph. Attender: Maki Argenisaleenajamshid [facility] - [facility] 11/07/2019 12:00:00 AM EDT ATHAvtar NA ([facility]) Maki Mishraalycialiam Oriana, AIDS COUNSELOR: [address], [place] [address], Ph. Attender: Maki Gastelum [facility] - [facility] 11/07/2019 12:00:00 AM EDT ATHAvtar NA ([facility]) Outpatient Attender: JUAN ZAPATA Physical Therapy 10/22/2019 0 2:30:00 PM EDT MEDENT ([facility]) Unknown [address] [facility] [place] [address] 10/16/2019 12:00:00 AM EDT eCW1 ([facility]) Unknown [address] [facility] [place] [address] 10/15/2019 12:00:00 AM EDT [facility]CW1 [facility] [place] [address] [facility] [place] [address] 10/15/2019 12:00:00 AM EDT eCW1 [facility] Outpatient Attender: JUAN ZAPATA Physical Therapy 10/09/2019 1 1:00:00 AM EDT MEDENT ([facility]) Maki Gastelum, AIDS COUNSELOR: [address], [facility] [place] [address], Ph. Attender: Maki Gastelum [facility] 09/26/2019 12:00:00 AM EDT NATIVIDAD CHAIREZ ([facility]) Maki Gastelum, AIDS COUNSELOR: [address], [place] [address], Ph. Attender: Maki Gastelum [facility] 09/26/2019 12:00:00 AM EDT NATIVIDAD CHAIREZ ([facility]) Maki Gastelum, AIDS COUNSELOR: [address], [place] [address], Ph. Attender: Maki Gastelum [facility] - [facility] 09/26/2019 12:00:00 AM EDT ATHAvtar CHAIREZ ([facility]) Maki Gastelum, AIDS COUNSELOR: [address], [address], [place] [address], Ph. Attender: Maki Gastelum [facility] - [facility] 09/26/2019 12:00:00 AM EDT ATHE NA ([facility]) Maki Gastelum, AIDS COUNSELOR: [address], [address], [place] [address], Ph. Attender: Maki Gastelum [facility] - [facility] 09/26/2019 12:00:00 AM EDT ATHE NA ([facility]) Maki Gastelum, AIDS COUNSELOR: [address], [place] [address], Ph. Attender: Maki Gastelum [facility] 09/26/2019 12:00:00 AM EDT ATHE NA ([facility]) Outpatient Attender: JUAN ZAPATA Physical Therapy 2019 1 1:30:00 AM EDT MEDENT ([facility]) [address], [place] [address] 08/16/2019 12:00:00 AM EDT eCW1 ([facility]) [address] [place] [address] 08/16/2019 12:00:00 AM EDT eCW1 ([facility] [address] [place] [address] 08/15/2019 12:00:00 AM EDT eCW1 ([facility]) [address], [place] [address] 08/13/2019 12:00:00 AM EDT eCW1 ([facility]) [address], [place] [address] 08/10/2019 12:00:00 AM EDT eCW1 ([facility]) [facility] [address] [facility], [facility] [address] 08/09/2019 12:00:00 AM EDT eCW1 ([facility]) Maki Gastelum, AIDS COUNSELOR: [address], [place] [address], Ph. Attender: Maki Gastelum [facility] - [facility] 08/08/2019 12:00:00 AM EDT ATHE NA ([facility]) Maki Gastelum, AIDS COUNSELOR: [address], [place] [address], Ph. Attender: Makiavtar Gastelum [facility] 08/08/2019 12:00:00 AM EDT ATHE NA ([facility]) Maki Gastelum, AIDS COUNSELOR: [address], [place] [address], Ph. Attender: Makiavtar Gastelum [facility] 08/08/2019 12:00:00 AM EDT ATHE NA ([facility]) Mkai Gastelum, AIDS COUNSELOR: [address], [place] [address], Ph. Attender: Maki Gastelum [facility] - [facility] 08/08/2019 12:00:00 AM EDT ATHE NA ([facility]) Maki Gastelum, AIDS COUNSELOR: [address], [place] [address], Ph. Attender: Maik Gastelum [facility] 08/08/2019 12:00:00 AM EDT ATHE NA ([facility]) Maki Gastelum, AIDS COUNSELOR: [address], [place] [address], Ph. Attender: Maki Gastelum [facility] - [facility] - [facility] 08/08/2019 12:00:00 AM EDT NATIVIDAD NA ([facility]) Maki Gastelum, AIDS COUNSELOR: [address], [place] [address], Ph. Attender: Makidelfino Morealeenajamshid [facility] - [facility] 08/08/2019 12:00:00 AM EDT ATHAvtar NA ([facility]) [address] [address] 08/07/2019 12:00:00 AM EDT eCW1 ([facility]) [address] [address] 08/03/2019 12:00:00 AM EDT eCW1 ([facility]) [address] [address] 08/02/2019 12:00:00 AM EDT eCW1 ([facility]) [address] [address] 08/02/2019 12:00:00 AM EDT eCW1 ([facility]) [address] [address] 07/31/2019 12:00:00 AM EDT eCW1 ([facility]) [address] [address] 07/24/2019 12:00:00 AM EDT eCW1 ([facility]) [address] [address] 07/18/2019 12:00:00 AM EDT eCW1 ([facility]) Maki Gastelum, AIDS COUNSELOR: [address], [place] [address], Ph. Attender: Maki Gastelum [facility] - [facility] 07/11/2019 12:00:00 AM EDT KIMBERLY ([facility]) Maki Gastelum, AIDS COUNSELOR: [address], [place] [address], Ph. Attender: Maki Gastelum [facility] - [facility] Office 07/11/2019 12:00:00 AM EDT KIMBERLY ([facility]) Maki Gastelum, AIDS COUNSELOR: [address], [place] [address], Ph. Attender: Maki Gastelum [facility] - [facility] 07/11/2019 12:00:00 AM EDT KIMBERLY ([facility]) Maki Gastelum, AIDS COUNSELOR: [address], [place] [address], Ph. Attender: Maki Gastelum [facility] - [facility] Office 07/11/2019 12:00:00 AM EDT KIMBERLY ([facility]) Maki Gastelum, AIDS COUNSELOR: [address], [place] [address], Ph. Attender: Maki Gastelum [facility] - [facility] 07/11/2019 12:00:00 AM EDT KIMBERLY ([facility]) Maki Gastelum, AIDS COUNSELOR: [address], [place] [address], Ph. Attender: Maki Gastelum [facility] - [facility] Main Office 07/11/2019 12:00:00 AM EDT KIMBERLY ([facility]) Maki Gastelum, AIDS COUNSELOR: [address], [place] [address], Ph. Attender: Maki Gastelum [facility] - [facility] Main Office 07/11/2019 12:00:00 AM EDT KIMBERLY ([facility]) Maki Gastelum, AIDS COUNSELOR: [address], [place] [address], Ph. Attender: Maki Gastelum [facility] - [facility] Office 07/11/2019 12:00:00 AM EDT KIMBERLY ([facility]) Unknown [address] [facility] [address] 07/03/2019 12:00:00 AM EDT eCW1 ([facility]) Unknown [address] [facility] [address] 07/02/2019 12:00:00 AM EDT eCW1 ([facility]) Unknown [address] [facility] [address] 07/02/2019 12:00:00 AM EDT eCW1 ([facility]) [facility] [address] [facility] [address] 07/02/2019 12:00:00 AM EDT eCW1 ([facility]) [facility] [place] [address] [facility] [address] 06/21/2019 12:00:00 AM EDT eCW1 ([facility]) [facility] [place] [address] [facility] [address] 06/07/2019 12:00:00 AM EDT eCW1 ([facility] [address] [facility] [address] 06/04/2019 12:00:00 AM EDT eCW1 ([facility]) [facility] [address] [facility] [address] 06/04/2019 12:00:00 AM EDT eCW1 ([facility]) Outpatient Referrer: Jorge Fischer MD 05/29/2019 03:34:00 PM EST [facility] [address] [facility] [address] 05/25/2019 12:00:00 AM EST eCW1 ([facility]) [facility] [address] [facility] [address] 05/23/2019 12:00:00 AM EST eCW1 ([facility]) [facility] [address] [facility] [address] 05/22/2019 12:00:00 AM EST eCW1 ([facility]) Maki Gastelum, AIDS COUNSELOR: [address], [place] [address], Ph. Attender: Maki Gastelum [facility] 05/16/2019 12:00:00 AM EST ATHE NA ([facility]) Maki Gastelum, AIDS COUNSELOR: [address], [place] [address], Ph. Attender: Maki Gastelum [facility] - [facility] 05/16/2019 12:00:00 AM EST ATHE NA ([facility]) Maki Gastelum, AIDS COUNSELOR: [address], [place] [address], Ph. Attender: Maki Gastelum [facility] - [facility] 05/16/2019 12:00:00 AM EST ATHE NA ([facility]) Maki Gastelum, AIDS COUNSELOR: [address], [address], [place] [address], Ph. Attender: Maki Gastelum [facility] - [facility] 05/16/2019 12:00:00 AM EST ATHE NA ([facility]) Maki Gastelum, AIDS COUNSELOR: [address], [address], [place] [address], Ph. Attender: Maki Gastelum [facility] - [facility] 05/16/2019 12:00:00 AM EST ATHE NA ([facility]) Maki Gastelum, AIDS COUNSELOR: [address], [place] [address], Ph. Attender: Maki Pappasjamshid [facility] 05/16/2019 12:00:00 AM EST ATHE NA ([facility]) Maki Gastelum, AIDS COUNSELOR: [address], [place] [address], Ph. Attender: Maki Gastelum [facility] - [facility] 05/16/2019 12:00:00 AM EST ATHE NA ([facility]) aMki Gastelum, AIDS COUNSELOR: [address], [place] [address], Ph. Attender: Maki Gastelum [facility] - [facility] 05/16/2019 12:00:00 AM EST ATHE NA ([facility]) Maki Gastelum, AIDS COUNSELOR: [address], [place] [address], Ph. Attender: Maki Gastelum [employer] DES[employer] [place] - [facility] 05/16/2019 12:00:00 AM EST ATHE NA ([facility]) [address] [address] 05/11/2019 12:00:00 AM EST [facility]CW1 [facility] [address] [address] 05/10/2019 12:00:00 AM EST [facility]CW1 [facility] [address] [address] 05/04/2019 12:00:00 AM EST eCW1 ([facility]) [address] [address] 04/23/2019 12:00:00 AM EST eCW1 ([facility]) [address] [address] 04/11/2019 12:00:00 AM EST eCW1 ([facility]) Outpatient Attender: [facility] 04/03/2019 0 2:30:00 PM EST MEDENT ([facility] ) Maki Gastelum, AIDS COUNSELOR: [address], [place] [address], Ph. Attender: Maki Gastelum [facility] 03/29/2019 12:00:00 AM EST ATHE NA ([facility]) Maki Gastelum, AIDS COUNSELOR: [address], [place] [address], Ph. Attender: Maki Gastelum [facility] 03/29/2019 12:00:00 AM EST ATHE NA ([facility]) Maki Morealeenajamshid, AIDS COUNSELOR: [address], [place] [address], Ph. Attender: Maki Gastelum [facility] - [facility] 03/29/2019 12:00:00 AM EST ATHE NA ([facility]) Maki Gastelum, AIDS COUNSELOR: [address], [place] [address], Ph. Attender: Maki Gastelum [facility] - [facility] 03/29/2019 12:00:00 AM EST ATHE NA ([facility]) Maki Gastelum, AIDS COUNSELOR: [address], [place] [address], Ph. Attender: Maki Gastelum [facility] - [facility] 03/29/2019 12:00:00 AM EST ATHE NA ([facility]) Maki Gastelum, AIDS COUNSELOR: [address], [place] [address], Ph. Attender: Maki Gastelum [facility] - [facility] 03/29/2019 12:00:00 AM EST ATHE NA ([facility]) Maki Gastelum, AIDS COUNSELOR: [address], [place] [address], Ph. Attender: Maki Gastelum [facility] - [facility] 03/29/2019 12:00:00 AM EST ATHE NA ([facility]) Maki Gastelum, AIDS COUNSELOR: [address], [place] [address], Ph. Attender: Maki Gastelum [facility] - [facility] 03/29/2019 12:00:00 AM EST ATHE NA ([facility]) Maki Gastelum, AIDS COUNSELOR: [address], [address], [place] [address], Ph. Attender: Maki Gastelum [facility] - [facility] - [facility] Office 03/29/2019 12:00:00 AM EST ATHE NA ([facility]) Maki Gastelum, AIDS COUNSELOR: [address], [address], [place] [address], Ph. Attender: Maki Gastelum [facility] - [facility] - [facility] Office 03/29/2019 12:00:00 AM EST ATHE NA ([facility]) [address] [address] 03/26/2019 12:00:00 AM EST eCW1 ([facility]) [address] [address] 03/23/2019 12:00:00 AM EST eCW1 ([facility]) [address] [place] [address] 03/22/2019 12:00:00 AM EST eCW1 ([facility]) [address] [address] 03/16/2019 12:00:00 AM EST eCW1 ([facility]) [address] [address] 03/14/2019 12:00:00 AM EST eCW1 ([facility]) [address] [address] 03/13/2019 12:00:00 AM EST eCW1 ([facility]) [address] [address] 03/13/2019 12:00:00 AM EST eCW1 ([facility]) [address] [address] 03/06/2019 12:00:00 AM EST eCW1 ([facility]) [facility] [address] [facility] [address] 03/06/2019 12:00:00 AM EST eCW1 ([facility]) [facility] [address] [facility] [address] 03/06/2019 12:00:00 AM EST eCW1 ([facility]) [facility] [address] [facility] [address] 03/05/2019 12:00:00 AM EST eCW1 ([facility]) [facility] [address] [facility] [address] 03/05/2019 12:00:00 AM EST eCW1 ([facility]) Immunizations Vaccine Date Status Description Data Source(s) influenza, recombinant, quadrIvalent,injectable, prese rvative free 04/07/2020 02:08:00 PM EST completed eCW1 ([facility]) influenza, recombinant, quadrIvalent,injectable, prese rvative free 04/07/2020 02:08:00 PM EST completed eCW1 ([facility]) influenza, recombinant, quadrIvalent,injectable, prese rvative free 04/07/2020 02:08:00 PM EST completed eCW1 ([facility]) influenza, recombinant, quadrIvalent,injectable, prese rvative free 04/07/2020 02:08:00 PM EST completed eCW1 ([facility]) influenza, recombinant, quadrIvalent,injectable, prese rvative free 04/07/2020 02:08:00 PM EST completed eCW1 ([facility]) Medications Medication Brand Name Start Date Product Form Dose Route Admi nistrative Instructions Pharmacy Instructions Status Indications Reaction Description Data Source(s) Vancomycin 125 MG Oral Capsule [Vancocin] Vancocin HCl 125 MG Vancocin HCl 125 MG 04/15/2020 12:00:00 AM EST 1.0 {capsule} acti ve Vancocin HCl 125 MG eCW1 ([facility]) Vancomycin 125 MG Oral Capsule [Vancocin] Vancocin HCl 125 MG Vancocin HCl 125 MG 04/15/2020 12:00:00 AM EST 1.0 {capsule} acti ve Vancocin HCl 125 MG eCW1 ([facility]) celecoxib 200 MG Oral Capsule [Celebrex] Celebrex [address] ebrex 200 MG 01/15/2020 12:00:00 AM EDT 1.0 {capsule_with_food} active Celebrex 200 MG eCW1 ([facility]) Cephalexin 250 MG Oral Capsule Cephalexin 250 MG 08/02/2019 12:00:00 AM EDT suspended 1 capsule eCW1 ([facility]) Cephalexin 250 MG Oral Capsule Cephalexin 250 MG 08/02/2019 12:00:00 AM EDT active 1 capsule eCW1 ([facility]) NITROFURANTOIN, MACROCRYSTALS 25 MG / Ni trofurantoin, Monohydrate 75 MG Oral Capsule [Macrobid] Macrobid 100 MG Macrobid 100 MG 06/07/2019 12:00:00 AM EDT active 1 capsule at bedtime wit h food eCW1 ([facility]) Prednisone 20 MG Oral Tablet PredniSONE 20 MG PredniSONE 20 MG 05/22/2019 12:00:00 AM EST active 2 tablet eCW1 ([facility]) Vancomycin 125 MG Oral Capsule Vancomycin HCl 125 MG Vancomy arnoldo HCl 125 MG 03/26/2019 12:00:00 AM EST active 1 capsule eCW1 ([facility]) Ondansetron 4 MG Oral Tablet Ondansetron HCl 4 MG Ondansetro n HCl 4 MG 03/06/2019 12:00:00 AM EST active 1 tablet eCW1 ([facility]) Rivaroxaban 20 MG UNK 03/06/2019 12:00:00 AM EST active 1 tablet with food eCW1 ([facility]) cefdinir 300 MG Oral Capsule Cefdinir 300 MG Cefdinir 300 MG 03/06/2019 12:00:00 AM EST active 1 cap eCW1 ([facility]) rivaroxaban 15 MG Oral Tablet [Xarelto] Xarelto 15 MG Xarelt o 15 MG 02/27/2019 12:00:00 AM EST active 1 tablet with food eCW1 ([facility]) rivaroxaban 15 MG Oral Tablet [Xarelto] Xarelto 15 MG Xarelt o 15 MG 02/27/2019 12:00:00 AM EST active 1 tablet with food eCW1 ([facility]) 12 HR Guaifenesin 600 MG Extended Release Oral Tablet [Mucinex] Mucinex 600 mg Mucinex 600 mg 02/27/2019 12:00:00 AM EST active 2 tablts eCW1 ([facility]) 12 HR Guaifenesin 600 MG Extended Releas e Oral Tablet Mucus Relief ER 600 mg tablet, extended release TAKE 2 TABLETS BY MOUTH TWICE DAILY Mucus Relief ER 600 mg tablet, extended release TAKE 2 TABLETS BY MOUTH TWICE DAILY completed 12 HR guaifenesin 600 MG Extende d Release Oral Tablet KIMBERLY ([facility]) Cephalexin 250 MG Oral Capsule cephalexin 250 mg capsu le cephalexin 250 mg capsule completed cephalexin 250 MG Oral Capsule KIMBERLY ([facility]) rivaroxaban 15 MG Oral Tablet [Xarelto] Xarelto 15 mg tablet Xarelto 15 mg tablet completed rivaroxaban 15 MG Oral Tablet [Xarelto] KIMBERLY ([facility]) Fluad 65yr up(PF)45 mcg(15 mcgx3)/0.5 mL intramuscular s yringe [id number] completed 0.5 ML influen za A virus A/ (H1N1) antigen 0.03 MG/ML / influenza A virus A/[place] (H3N2) antigen 0.03 MG/ML / influenza B virus B/ antigen 0.03 MG/ML Prefilled Syringe [Fluad ] KIMBERLY ([facility]) 12 HR Guaifenesin 600 MG Extended Releas e Oral Tablet Mucus Relief ER 600 mg tablet, extended release TAKE 2 TABLETS BY MOUTH TWICE DAILY Mucus Relief ER 600 mg tablet, extended release TAKE 2 TABLETS BY MOUTH TWICE DAILY completed 12 HR guaifenesin 600 MG Extende d Release Oral Tablet KIMBERLY ([facility]) Esomeprazole 20 MG Delayed Release Oral Capsule [Nexium] Nexium 20 mg capsule,delayed release Take 1 capsule every day by oral route. Nexium 20 mg capsule,delayed release Take 1 capsule every day by oral route. 1 capsule(s) completed esomeprazole 20 MG Del ayed Release Oral Capsule [Nexium] KIMBERLY ([facility]) Fluad 65yr up(PF)45 mcg(15 mcgx3)/0.5 mL intramuscular s yringe [id number] completed 0.5 ML influen za A virus A/[place] (H1N1) antigen 0.03 MG/ML / influenza A virus A/[place] (H3N2) antigen 0.03 MG/ML / influenza B virus B/ antigen 0.03 MG/ML Prefilled Syringe [Fluad ] KIMBERLY ([facility]) Magnesium Oxide 400 MG Oral Tablet magne sium oxide 400 mg (241.3 mg magnesium) tablet TK 1 T PO BID magnesium oxide 400 mg (241.3 mg magnesi um) tablet TK 1 T PO BID completed magnesium oxide 400 MG Oral Tablet KIMBERLY ([facility]) apixaban 5 MG Oral Tablet [Eliquis] Eliquis 5 mg tablet Eliquis 5 m g tablet completed apixaban 5 MG Oral Tab let [Eliquis] KIMBERLY ([facility]) Cephalexin 250 MG Oral Capsule cephalexin 250 mg capsu le cephalexin 250 mg capsule completed cephalexin 250 MG Oral Capsule KIMBERLY ([facility]) Esomeprazole 20 MG Delayed Release Oral Capsule [Nexium] Nexium 20 mg capsule,delayed release Take 1 capsule every day by oral route. Nexium 20 mg capsule,delayed release Take 1 capsule every day by oral route. 1 capsule(s) completed esomeprazole 20 MG Del ayed Release Oral Capsule [Nexium] KIMBERLY ([facility]) Cyclobenzaprine hydrochloride 5 MG Oral Tablet cyclobe nzaprine 5 mg tablet cyclobenzaprine 5 mg tablet completed cyclobenzaprine hydrochloride 5 MG Oral Tablet KIMBERLY ([facility]) rivaroxaban 15 MG Oral Tablet [Xarelto] Xarelto 15 mg tablet Xarelto 15 mg tablet completed rivaroxaban 15 MG Oral Tablet [Xarelto] KIMBERLY ([facility]) NITROFURANTOIN, MACROCRYSTALS 25 MG / Ni trofurantoin, Monohydrate 75 MG Oral Capsule nitrofurantoin monohydrate/macrocrystals 100 mg capsule nitrofurantoin monohydrate/macrocrystals 100 mg capsule completed nitrofurantoin, macrocrystals 25 MG / nitrofurantoin, monohydrate 75 MG Oral Capsule KIMBERLY ([facility]) apixaban 5 MG Oral Tablet [Eliquis] Eliquis 5 mg tablet Eliquis 5 m g tablet completed apixaban 5 MG Oral Tab let [Eliquis] KIMBERLY ([facility]) Prednisone 20 MG Oral Tablet prednisone 20 mg tablet prednisone 20 mg tablet completed prednisone 20 MG Oral Tablet KIMBERLY ([facility]) apixaban 5 MG Oral Tablet [Eliquis] Eliquis 5 mg tablet Eliquis 5 m g tablet completed apixaban 5 MG Oral Tab let [Eliquis] KIMBERLY ([facility]) cefdinir 300 MG Oral Capsule cefdinir 300 mg capsule cefdinir 30 0 mg capsule completed cefdinir 300 M G Oral Capsule KIMBERLY ([facility]) cefdinir 300 MG Oral Capsule cefdinir 300 mg capsule cefdinir 30 0 mg capsule completed cefdinir 300 M G Oral Capsule KIMBERLY ([facility]) Cyclobenzaprine hydrochloride 5 MG Oral Tablet cyclobe nzaprine 5 mg tablet cyclobenzaprine 5 mg tablet completed cyclobenzaprine hydrochloride 5 MG Oral Tablet KIMBERLY ([facility]) apixaban 5 MG Oral Tablet [Eliquis] Eliquis 5 mg tablet Eliquis 5 m g tablet completed apixaban 5 MG Oral Tab let [Eliquis] KIMBERLY ([facility]) paroxetine 20 mg tablet [id number] complet ed Paroxetine Hydrochloride 20 MG Oral Tablet KIMBERLY ([facility]) Magnesium Oxide 400 MG Oral Tablet magne sium oxide 400 mg (241.3 mg magnesium) tablet TK 1 T PO BID magnesium oxide 400 mg (241.3 mg magnesi um) tablet TK 1 T PO BID completed magnesium oxide 400 MG Oral Tablet KIMBERLY ([facility]) cefdinir 300 MG Oral Capsule cefdinir 300 mg capsule cefdinir 30 0 mg capsule completed cefdinir 300 M G Oral Capsule KIMBERLY ([facility]) Simvastatin 20 MG Oral Tablet simvastati n 20 mg tablet Take 1 tablet every day by oral route. simvastatin 20 mg tablet Take 1 tablet every day by or al route. 1 completed simvastatin 20 MG Oral Tablet KIMBERLY ([facility]) apixaban 5 MG Oral Tablet [Eliquis] Eliquis 5 mg tablet Eliquis 5 m g tablet completed apixaban 5 MG Oral Tab let [Eliquis] KIMBERLY ([facility]) NITROFURANTOIN, MACROCRYSTALS 25 MG / Ni trofurantoin, Monohydrate 75 MG Oral Capsule nitrofurantoin monohydrate/macrocrystals 100 mg capsule nitrofurantoin monohydrate/macrocrystals 100 mg capsule completed nitrofurantoin, macrocrystals 25 MG / nitrofurantoin, monohydrate 75 MG Oral Capsule KIMBERLY ([facility]) cefdinir 300 MG Oral Capsule cefdinir 300 mg capsule cefdinir 30 0 mg capsule completed cefdinir 300 M G Oral Capsule KIMBERLY ([facility]) Fluad 65yr up(PF)45 mcg(15 mcgx3)/0.5 mL intramuscular s yringe [id number] completed 0.5 ML influen za A virus A/ (H1N1) antigen 0.03 MG/ML / influenza A virus A/ (H3N2) antigen 0.03 MG/ML / influenza B virus B/ antigen 0.03 MG/ML Prefilled Syringe [Fluad ] [facility] ([facility]) pantoprazole 20 MG Delayed Release Oral Tablet pantoprazole 20 mg tablet,delayed release pantoprazole 20 mg tablet,delayed release completed pantoprazole 20 MG Delayed Release Oral Tablet [facility] ([facility]) cefdinir 300 MG Oral Capsule cefdinir 300 mg capsule cefdinir 30 0 mg capsule completed cefdinir 300 M G Oral Capsule [facility]LY ([facility]) cefdinir 300 MG Oral Capsule cefdinir 300 mg capsule cefdinir 30 0 mg capsule completed cefdinir 300 M G Oral Capsule [facility] ([facility]) rivaroxaban 15 MG Oral Tablet [Xarelto] Xarelto 15 mg tablet Xarelto 15 mg tablet completed rivaroxaban 15 MG Oral Tablet [Xarelto] KIMBERLY ([facility]) Fluad 65yr up(PF)45 mcg(15 mcgx3)/0.5 mL intramuscular s yringe [id number] completed 0.5 ML influen za A virus A/[place] (H1N1) antigen 0.03 MG/ML / influenza A virus A/ (H3N2) antigen 0.03 MG/ML / influenza B virus B/ antigen 0.03 MG/ML Prefilled Syringe [Fluad ] K[facility]BERLY ([facility]) rivaroxaban 15 MG Oral Tablet [Xarelto] Xarelto 15 mg tablet Xarelto 15 mg tablet completed rivaroxaban 15 MG Oral Tablet [Xarelto] KIMBERLY ([facility]) NITROFURANTOIN, MACROCRYSTALS 25 MG / Ni trofurantoin, Monohydrate 75 MG Oral Capsule nitrofurantoin monohydrate/macrocrystals 100 mg capsule nitrofurantoin monohydrate/macrocrystals 100 mg capsule completed nitrofurantoin, macrocrystals 25 MG / nitrofurantoin, monohydrate 75 MG Oral Capsule [facility] ([facility]) apixaban 5 MG Oral Tablet [Eliquis] Eliquis 5 mg tablet Eliquis 5 m g tablet completed apixaban 5 MG Oral Tab let [Eliquis] [facility]BERLY ([facility]) paroxetine 20 mg tablet [id number] complet ed paroxetine hydrochloride 20 MG Oral Tablet [facility] ([facility]) Magnesium Oxide 400 MG Oral Tablet magne sium oxide 400 mg (241.3 mg magnesium) tablet TK 1 T PO BID magnesium oxide 400 mg (241.3 mg magnesi um) tablet TK 1 T PO BID completed magnesium oxide 400 MG Oral Tablet [facility] ([facility]) rivaroxaban 15 MG Oral Tablet [Xarelto] Xarelto 15 mg tablet Xarelto 15 mg tablet completed rivaroxaban 15 MG Oral Tablet [Xarelto] [facility]IMBERLY ([facility]) rivaroxaban 15 MG Oral Tablet [Xarelto] Xarelto 15 mg tablet Xarelto 15 mg tablet completed rivaroxaban 15 MG Oral Tablet [Xarelto] [facility]LY ([facility]) Esomeprazole 40 MG Delayed Release Oral Capsule esomeprazole magnesium 40 mg capsule,delayed release esomeprazole magnesium 40 mg capsule,delayed release completed Esomeprazole 4 0 MG Delayed Release Oral Capsule [facility] ([facility]) Cyclobenzaprine hydrochloride 10 MG Oral Tablet cyclobenzaprine 10 mg tablet Take 1 tablet every day by oral route as needed. cyclobenzaprine 10 mg tablet Take 1 tablet every day by oral route as needed. 1 completed cyclobenzaprine hydrochloride 10 MG Oral Tablet [facility]LY ([facility]) Fluad 65yr up(PF)45 mcg(15 mcgx3)/0.5 mL intramuscular s yringe [id number] completed 0.5 ML influen za A virus A/ (H1N1) antigen 0.03 MG/ML / influenza A virus A/ (H3N2) antigen 0.03 MG/ML / influenza B virus B/ antigen 0.03 MG/ML Prefilled Syringe [Fluad ] K[facility]BERLY ([facility]) Vancomycin 125 MG Oral Capsule vancomycin 125 mg capsu le vancomycin 125 mg capsule completed vancomycin 125 MG Oral Capsule [facility] ([facility]) rivaroxaban 15 MG Oral Tablet [Xarelto] Xarelto 15 mg tablet Xarelto 15 mg tablet completed rivaroxaban 15 MG Oral Tablet [Xarelto] [facility]LY ([facility]) 12 HR Guaifenesin 600 MG Extended Releas e Oral Tablet Mucus Relief ER 600 mg tablet, extended release TAKE 2 TABLETS BY MOUTH TWICE DAILY Mucus Relief ER 600 mg tablet, extended release TAKE 2 TABLETS BY MOUTH TWICE DAILY completed 12 HR guaifenesin 600 MG Extende d Release Oral Tablet [facility]IM[facility]LY ([facility]) Simvastatin 20 MG Oral Tablet simvastati n 20 mg tablet Take 1 tablet every day by oral route. simvastatin 20 mg tablet Take 1 tablet every day by or al route. 1 completed simvastatin 20 MG Oral Tablet [facility] ([facility]) Esomeprazole 40 MG Delayed Release Oral Capsule esomeprazole magnesium 40 mg capsule,delayed release esomeprazole magnesium 40 mg capsule,delayed release completed Esomeprazole 4 0 MG Delayed Release Oral Capsule [facility]LY ([facility]) cefdinir 300 MG Oral Capsule cefdinir 300 mg capsule cefdinir 30 0 mg capsule completed cefdinir 300 M G Oral Capsule [facility]LY ([facility]) apixaban 5 MG Oral Tablet [Eliquis] Eliquis 5 mg tablet Eliquis 5 m g tablet completed apixaban 5 MG Oral Tab let [Eliquis] KIMBELRY ([facility]) Esomeprazole 20 MG Delayed Release Oral Capsule [Nexium] Nexium 20 mg capsule,delayed release Take 1 capsule every day by oral route. Nexium 20 mg capsule,delayed release Take 1 capsule every day by oral route. 1 capsule(s) completed esomeprazole 20 MG Del ayed Release Oral Capsule [Nexium] [facility]BERLY ([facility]) apixaban 5 MG Oral Tablet [Eliquis] Eliquis 5 mg tablet Eliquis 5 m g tablet completed apixaban 5 MG Oral Tab let [Eliquis] [facility]IM[facility]LY ([facility]) cefdinir 300 MG Oral Capsule cefdinir 300 mg capsule cefdinir 30 0 mg capsule completed cefdinir 300 M G Oral Capsule [facility] ([facility]) Cyclobenzaprine hydrochloride 5 MG Oral Tablet cyclobe nzaprine 5 mg tablet cyclobenzaprine 5 mg tablet completed cyclobenzaprine hydrochloride 5 MG Oral Tablet [facility] ([facility]) Cyclobenzaprine hydrochloride 10 MG Oral Tablet cyclobenzaprine 10 mg tablet Take 1 tablet every day by oral route as needed. cyclobenzaprine 10 mg tablet Take 1 tablet every day by oral route as needed. 1 completed cyclobenzaprine hydrochloride 10 MG Oral Tablet [facility] ([facility]) cefdinir 300 MG Oral Capsule cefdinir 300 mg capsule cefdinir 30 0 mg capsule completed cefdinir 300 M G Oral Capsule [facility]LY ([facility]) Fluad 65yr up(PF)45 mcg(15 mcgx3)/0.5 mL intramuscular s yringe [id number] completed 0.5 ML influen za A virus A/[place] (H1N1) antigen 0.03 MG/ML / influenza A virus A/ (H3N2) antigen 0.03 MG/ML / influenza B virus B/ antigen 0.03 MG/ML Prefilled Syringe [Fluad ] [facility]LY ([facility]) Prednisone 20 MG Oral Tablet prednisone 20 mg tablet prednisone 20 mg tablet completed prednisone 20 MG Oral Tablet [facility] ([facility]) Fluad 66yr up(PF)45 mcg(15 mcgx3)/0.5 mL intramuscular s yringe [id number] completed 0.5 ML influen za A virus A/ (H1N1) antigen 0.03 MG/ML / influenza A virus A/ (H3N2) antigen 0.03 MG/ML / influenza B virus B/ antigen 0.03 MG/ML Prefilled Syringe [Fluad ] K[facility]LY ([facility]) Cyclobenzaprine hydrochloride 10 MG Oral Tablet cyclobenzaprine 10 mg tablet Take 1 tablet every day by oral route as needed. cyclobenzaprine 10 mg tablet Take 1 tablet every day by oral route as needed. 1 completed cyclobenzaprine hydrochloride 10 MG Oral Tablet K[facility]LY ([facility]) pantoprazole 20 MG Delayed Release Oral Tablet pantoprazole 20 mg tablet,delayed release pantoprazole 20 mg tablet,delayed release completed pantoprazole 20 MG Delayed Release Oral Tablet [facility] ([facility]) Fluad 66yr up(PF)45 mcg(15 mcgx3)/0.5 mL intramuscular s yringe [id number] completed 0.5 ML influen za A virus A/ (H1N1) antigen 0.03 MG/ML / influenza A virus A/ (H3N2) antigen 0.03 MG/ML / influenza B virus B/ antigen 0.03 MG/ML Prefilled Syringe [Fluad ] KIM[facility]LY ([facility]) apixaban 5 MG Oral Tablet [Eliquis] Eliquis 5 mg tablet Eliquis 5 m g tablet completed apixaban 5 MG Oral Tab let [Eliquis] KIMBERLY ([facility]) rivaroxaban 15 MG Oral Tablet [Xarelto] Xarelto 15 mg tablet Xarelto 15 mg tablet completed rivaroxaban 15 MG Oral Tablet [Xarelto] KIMBERLY ([facility]) pantoprazole 20 MG Delayed Release Oral Tablet pantoprazole 20 mg tablet,delayed release pantoprazole 20 mg tablet,delayed release completed pantoprazole 20 MG Delayed Release Oral Tablet K[facility]LY ([facility]) rivaroxaban 15 MG Oral Tablet [Xarelto] Xarelto 15 mg tablet Xarelto 15 mg tablet completed rivaroxaban 15 MG Oral Tablet [Xarelto] [facility] ([facility]) Prednisone 20 MG Oral Tablet prednisone 20 mg tablet prednisone 20 mg tablet completed prednisone 20 MG Oral Tablet KIM[facility] ([facility]) Vancomycin 125 MG Oral Capsule vancomycin 125 mg capsu le vancomycin 125 mg capsule completed vancomycin 125 MG Oral Capsule K[facility] ([facility]) Fluad 66yr up(PF)45 mcg(15 mcgx3)/0.5 mL intramuscular s yringe [id number] completed 0.5 ML influen za A virus A/ (H1N1) antigen 0.03 MG/ML / influenza A virus A/ (H3N2) antigen 0.03 MG/ML / influenza B virus B/ antigen 0.03 MG/ML Prefilled Syringe [Fluad ] KIM[facility]LY ([facility]) cefdinir 300 MG Oral Capsule cefdinir 300 mg capsule cefdinir 30 0 mg capsule completed cefdinir 300 M G Oral Capsule K[facility]LY ([facility]) Cephalexin 250 MG Oral Capsule cephalexin 250 mg capsu le cephalexin 250 mg capsule completed cephalexin 250 MG Oral Capsule KIM[facility]LY ([facility]) Vancomycin 125 MG Oral Capsule vancomycin 125 mg capsu le vancomycin 125 mg capsule completed vancomycin 125 MG Oral Capsule K[facility] ([facility]) rivaroxaban 15 MG Oral Tablet [Xarelto] Xarelto 15 mg tablet Xarelto 15 mg tablet completed rivaroxaban 15 MG Oral Tablet [Xarelto] KIMBERLY ([facility]) apixaban 5 MG Oral Tablet [Eliquis] Eliquis 5 mg tablet Eliquis 5 m g tablet completed apixaban 5 MG Oral Tab let [Eliquis] KIMBERLY ([facility]) Fluad 66yr up(PF)45 mcg(15 mcgx3)/0.5 mL intramuscular s yringe [id number] completed 0.5 ML influen za A virus A/ (H1N1) antigen 0.03 MG/ML / influenza A virus A/ (H3N2) antigen 0.03 MG/ML / influenza B virus B/ antigen 0.03 MG/ML Prefilled Syringe [Fluad ] KIM[facility]LY ([facility]) Simvastatin 20 MG Oral Tablet simvastati n 20 mg tablet Take 1 tablet every day by oral route. simvastatin 20 mg tablet Take 1 tablet every day by or al route. 1 completed simvastatin 20 MG Oral Tablet KIMBERLY ([facility]) Insurance Providers Payer name Policy type / Coverage type Policy ID Covered alliance party ID Covered alliance party's relationship to diggs Policy Diggs Plan Information WELLCARE [id number] SP [id number] WELLCARE O [id number] O [id number] SPECIAL FUNDS [facility] [id number] [facility] [id number] WELLCARE [id number] SP [id number] WELLCARE O [id number] S [id number] WELLCARE [id number] SP [id number] MEDICARE [id number] SP [id number] [facility]-Medicare Part B [id number] [facility]-Health Maintenance Organization ( O) [id number] [facility]-Health Maintenance Organization ( O) [id number] ANSI-Medicare Part B [id number] ANSI-Medicare Part B [id number] [facility]-Health Maintenance Organization ( O) [id number] [facility] [id number] [facility]-Health Maintenance Organization ( O) [id number] ANSI-Medicare Part B [id number] ANSI-Medicare Part B [id number] [facility]-Health Maintenance Organization ( O) [id number] [facility]-Health Maintenance Organization ( O) [id number] ANSI-Medicare Part B [id number] ANSI-Medicare Part B [id number] [facility]-Health Maintenance Organization ( O) [id number] ANSI-Medicare Part B [id number] ANSI-Health Maintenance Organization ( O) [id number] [facility] Medigap Part B [id number] Self [id number] [place] Medigap Part B [id number] Self [id number] Todays Options/Amer Progress Medigap Part B [id number] Self [id number] [place] Medigap Part B [id number] Self [id number] [employer] Options Medigap Part B [id number] Self [id number] Wellcare Commercial [id number] Self [id number] MVP (pr) Commercial [id number] Self [id number] Todays Options Medigap Part B [id number] Self [id number] [facility] Medigap Part B [id number] Self [id number] ANSI-Medicare Part B [id number] ANSI-Medicare Part B [id number] ANSI-Medicare Part B [id number] [facility] Medigap Part B [id number] Self [id number] [place] Medigap Part B [id number] Self [id number] Todays Options/Amer Progress Medigap Part B [id number] Self [id number] [place] Medigap Part B [id number] Self [id number] [place] Options Medigap Part B [id number] Self [id number] Wellcare Commercial [id number] Self [id number] Today's Options Medicare Commercial [id number] Self [id number] Well[employer] Commercial [id number] Self [id number] [place]/[facility] Medicare Primary [id number] Self [id number] ANSI-Medicare Part B [id number] TODAYS OPTIONS [id number] SP [id number] Today's Options Medicare Commercial [id number] Self [id number] [employer] [facility] Commercial [id number] Self [id number] Medicare [facility]/[employer] Medicare Primary [id number] Self [id number] ANSI-Medicare Part B [id number] ANSI-Medicare Part B [id number] ANSI-Medicare Part B [id number] TODAYS OPTIONS [id number] SP [id number] ANSI-Medicare Part B [id number] ANSI-Medicare Part B [id number] ANSI-Medicare Part B [id number] ANSI-Medicare Part B [id number] [facility] [id number] Self [id number] [place] Medigap Part B [id number] Self [id number] Todays Options/Amer Progress Medigap Part B [id number] Self [id number] [place] Medigap Part B [id number] Self [id number] Todays Options Commercial [id number] Self [id number] [facility] Medigap Part B [id number] Self [id number] [place] Medigap Part B [id number] Self [id number] Todays Options/Amer Progress Medigap Part B [id number] Self [id number] [place] Medigap Part B [id number] Self [id number] Todays Options Commercial [id number] Self [id number] [facility] Medigap Part B [id number] Self [id number] [place] Medigap Part B [id number] Self [id number] Todays Options/Amer Progress Medigap Part B [id number] Self [id number] [place] Medigap Part B [id number] Self [id number] Todays Options Commercial [id number] Self [id number] [facility] Medigap Part B [id number] Self [id number] Medicare [facility] Medigap Part B [id number] Self [id number] Todays Options/Amer Progress Medigap Part B [id number] Self [id number] [place] Medigap Part B [id number] Self [id number] Todays Options Commercial [id number] Self [id number] ANSI-Medicare Part B [id number] ANSI-Medicare Part B [id number] ANSI-Medicare Part B [id number] [facility] Medigap Part B [id number] Self [id number] [place] Medigap Part B [id number] Self [id number] Todays Options/Amer Progress Medigap Part B [id number] Self [id number] [place] Medigap Part B [id number] Self [id number] Todays Options Commercial [id number] Self [id number] [facility] [id number] [facility] Medigap Part B [id number] Self [id number] [place] Medigap Part B [id number] Self [id number] Todays Options/Amer Progress Medigap Part B [id number] Self [id number] [place] Medigap Part B [id number] Self [id number] Todays Options Commercial [id number] Self [id number] AMER PROG TODAYS OPTIONS G [id number] Self [id number] [facility] Medigap Part B [id number] Self [id number] [place] Medigap Part B [id number] Self [id number] Todays Options/Amer Progress Medigap Part B [id number] Self [id number] [place] Medigap Part B [id number] Self [id number] Tod[employer] Options Commercial [id number] Self [id number] Today's Option Medicare Commercial [id number] Self [id number] TODAYS OPTIONS/[place] O [id number] S [id number] ONE CALL CARE MANAGEMENT O [id number] S [id number] Todays Options Commercial [id number] Self [id number] TODAYS OPTIONS/[place] O [id number] O [id number] [facility] Medigap Part B [id number] Self [id number] [place] Medigap Part B [id number] Self [id number] Todays Options/Amer Progress Medigap Part B [id number] Self [id number] [place] Medigap Part B [id number] Self [id number] Todays Options Commercial [id number] Self [id number] [facility] Medigap Part B [id number] Self [id number] [place] Medigap Part B [id number] Self [id number] Todays Options/Amer Progress Medigap Part B [id number] Self [id number] [place] Medigap Part B [id number] Self [id number] Todays Options Commercial [id number] Self [id number] [facility] Medigap Part B [id number] Self [id number] [place] Medigap Part B [id number] Self [id number] Todays Options/Amer Progress Medigap Part B [id number] Self [id number] [place] Medigap Part B [id number] Self [id number] Todays Options Commercial [id number] Self [id number] [facility] Medigap Part B [id number] Self [id number] Medicare [facility] Medigap Part B [id number] Self [id number] Todays Options/Amer Progress Medigap Part B [id number] Self [id number] [place] Medigap Part B [id number] Self [id number] Todays Options Commercial [id number] Self [id number] AMER PROG TODAYS OPTIONS G [id number] Self [id number] [facility] Medigap Part B [id number] Self [id number] [place] Medigap Part B [id number] Self [id number] Todays Options/Amer Progress Medigap Part B [id number] Self [id number] [place] Medigap Part B [id number] Self [id number] Todays Options Commercial [id number] Self [id number] [place] Medigap Part B [id number] Self [id number] [facility] Medigap Part B [id number] Self [id number] [place] Medigap Part B [id number] Self [id number] Todays Options/Amer Progress Medigap Part B [id number] Self [id number] Todays Options Commercial [id number] Self [id number] MEDICARE [id number] SP [id number] A [place] Medigap Part B [id number] Self [id number] [facility] Medigap Part B [id number] Self [id number] [place] Medigap Part B [id number] Self [id number] Todays Options/Amer Progress Medigap Part B [id number] Self [id number] Todays Options Commercial [id number] Self [id number] Todays Options [place] [id number] 0 [id number] Todays Options [place] [id number] 0 [id number] Todays Options [place] [employer] [id number] 0 [id number] United Healthcare Medicare Complete [id number] 0 [id number] [facility] Medicare Complete [id number] 0 [id number] TODAYS OPTIONS [id number] SP [id number] TODAYS OPTIONS [id number] SP [id number] TODAYS OPTION MEDICARE [id number] Maame [id number] MVP (pr) Commercial Self [facility] Medigap Part B Self [place] Medigap Part B Self Todays Options/Amer Progress Medigap Part B Self Todays Options Medigap Part B Self [employer] Medigap Part B Self Todays Options Commercial Self STATE INSURANCE FUND [id number] SP [id number] SPECIAL FUNDS [place] [id number] Empl [id number] MEDICARE COMPLETE [id number] SP [id number] [employer] [id number] [employer] [id number] 18 [id number] SPECIAL FUNDS [place] [id number] SP [id number] MEDICARE COMPLETE [id number] SP [id number] [facility] MEDICARE COMPLETE G [id number] Self [id number] SPECIAL FUNDS [place] W [id number] Empl [id number] MEDICARE COMPLETE-[facility] P [id number] S [id number] ONE CALL CARE MANAGEMENT P [id number] S [id number] SPECIAL FUNDS P [id number] S [id number] SPECIAL FUNDS P [id number] S [id number] MEDICARE COMPLETE [id number] SP [id number] Problems, Conditions, and Diagnoses Code Display Name Description Problem Type Effective Dates Data Source(s) 020975357 Onychomycosis Onychomycosis Problem 02/11/2020 12:00:00 AM EST [facility] ([facility] Other specified polyneuropathies Other specified polyn europathies Problem 02/11/2020 12:00:00 AM EST [facility] ([facility] [id number] Pain in limb Pain in limb Problem 02/11/2020 12:00:00 A M EST [facility] ([facility] G44.209 [id number] Tension headache Problem 01/15/2020 12:00:00 AM EDT eCW1 ([facility]) F03.90 [id number] Mild dementia Problem 07/31/2019 12:00:00 AM EDT eCW1 ([facility]) N39.0 [id number] Recurrent UTI Problem 07/31/2019 12:00:00 AM EDT eCW1 ([facility]) N39.0 [id number] Recurrent UTI Problem 07/31/2019 12:00:00 AM EDT eCW1 ([facility]) F03.90 [id number] Mild dementia Problem 07/31/2019 12:00:00 AM EDT eCW1 ([facility]) A04.71 [id number] Recurrent Clostridioides difficile diarr hea Problem 06/04/2019 12:00:00 AM EDT eCW1 ([facility]) A04.71 [id number] Recurrent Clostridioides difficile diarr hea Problem 06/04/2019 12:00:00 AM EDT eCW1 ([facility]) M19.042 [id number] Arthritis of left hand Problem 05/22/2019 12 :00:00 AM EST eCW1 ([facility]) D72.829 Leukocytosis Leukocytosis, unspecified type Problem 05/22/2019 12:00:00 AM EST eCW1 ([facility]) M19.041 [id number] Arthritis of hand, right Problem 05/22/2019 12:00:00 AM EST eCW1 ([facility]) M19.041 [id number] Arthritis of hand, right Problem 05/22/2019 12:00:00 AM EST eCW1 ([facility]) D72.829 Leukocytosis Leukocytosis, unspecified type Problem 05/22/2019 12:00:00 AM EST eCW1 [facility] [facility] M19.042 [id number] Arthritis of left hand Problem 05/22/2019 12 :00:00 AM EST eCW1 (Formerly [facility]) I26.99 Pulmonary Embolism Bilateral pulmonary embolism Proble m 03/06/2019 12:00:00 AM EST eCW1 (Formerly [facility]) I26.99 Pulmonary Embolism Bilateral pulmonary embolism Proble m 03/06/2019 12:00:00 AM EST eCW1 (Formerly [facility]) Surgeries/Procedures Procedure Description Date Indications Data Source(s) ARTHROCENTESIS ASPIR&/INJECTION MAJOR JT/BURSA 021 12:00:00 AM EST MEDENT ([facility] ) DEBRIDEMENT NAIL ANY METHOD 04/09/2020 12:00:00 AM EST MEDENT ([facility] Immunization: Flublok Quadrivalent (18 years & older) 0.5mL IM (Influenza) 04/07/2020 12:00:00 AM EST eCW1 (On license of [facility]) DEBRIDEMENT NAIL ANY METHOD 01/30/2020 12:00:00 AM EST MEDENT ([facility] RADEX SPINE LUMBOSACRAL MINIMUM 4 VIEWS 10/22/2019 12: 00:00 AM EDT MEDENT ([facility] ) ARTHROCENTESIS ASPIR&/INJECTION MAJOR JT/BURSA 020 12:00:00 AM EDT MEDENT ([facility]) ARTHROCENTESIS ASPIR&/INJECTION MAJOR JT/BURSA 020 12:00:00 AM EDT MEDENT ([facility]) Office Visit, Est Pt., Level 2 FC 08/16/2019 12:00:00 AM EDT eCW1 ([facility]ly [facility]) Office Visit, Est Pt., Level 3 PC 08/16/2019 12:00:00 AM EDT eCW1 ([facility]ly [facility]) PHYSICIAN TELEPHONE EVALUATION 21-30 MIN 07/31/2019 12 :00:00 AM EDT eCW1 ([facility]ly [facility]) PHYSICIAN TELEPHONE EVALUATION 5-10 MIN 07/02/2019 12: 00:00 AM EDT eCW1 ([facility]) Office Visit, Est Pt., Level 4 PC 06/04/2019 12:00:00 AM EDT eCW1 ([facility]ly [facility]) Medicare, Stalin Mina, PC-INTERPRETATION AND REPORT 06/04/2019 12:00:00 AM EDT eCW1 ([facility]) Medicare, , [employer], FC-ELECTROCARDIOGRAM, TRACING ON LY 06/04/2019 12:00:00 AM EDT eCW1 ([facility]) ARTHROCENTESIS ASPIR&/INJECTION MAJOR JT/BURSA 020 12:00:00 AM EST MEDENT ([facility]) TRANS CARE MGMT 7 DAY DISCH 03/06/2019 12:00:00 AM EST eCW1 ([facility]ly [facility]) Results ID Date Data Source Comprehensive Metabolic Profile (CMP) 04/07/2020 12:00:00 AM EST eCW1 ([facility]ly [facility]) Name Value Range Interpretation Code Description Data Hue rce(s) Supporting Document(s) 111 70-100 GLUCOSE, FASTING eCW1 ([facility]) > 60.0 >32 GLOMERULAR FILTRATION RATE eCW 1 ([facility]) 141 136-145 SODIUM LEVEL eCW1 ([facility]) 19 7-18 BLOOD UREA NITROGEN eCW1 ([facility]) 0.76 0.55-1.30 CREATININE FOR GFR eCW1 ([facility]) 29 21-32 CARBON DIOXIDE LEVEL eCW1 ([facility]) 106 98-107 CHLORIDE LEVEL eCW1 ([facility]) 4.5 3.5-5.1 POTASSIUM SERUM eCW1 ([facility]) 9.9 8.8-10.2 CALCIUM LEVEL eCW1 ([facility]) 6.5 6.4-8.2 TOTAL PROTEIN eCW1 ([facility]) 0.4 0.2-1.0 BILIRUBIN,TOTAL eCW1 ([facility]) 62 45-117 ALKALINE PHOSPHATASE eCW1 ([facility]) 13 7-37 AST/SGOT eCW1 ([facility]) 23 12-78 ALT/SGPT eCW1 ([facility]) 4.0 3.2-5.2 ALBUMIN eCW1 ([facility]) 1.6 1.2-2.2 ALBUMIN/GLOBULIN RATIO eCW1 ([facility]) ID Date Data Source CBC with Differential 04/07/2020 12:00:00 AM EST eCW1 ([facility]) Name Value Range Interpretation Code Description Data Hue rce(s) Supporting Document(s) 6.6 4.0-10.0 WHITE BLOOD COUNT eCW1 ([facility]) 38.9 36.0-47.0 HEMATOCRIT eCW1 ([facility]) 11.6 12.0-15.5 HEMOGLOBIN eCW1 ([facility]) 3.80 4.00-5.40 RED BLOOD COUNT eCW1 ([facility]) 102.4 80.0-96.0 MEAN CORPUSCULAR VOLUME e CW1 ([facility]) 30.5 27.0-33.0 MEAN CORPUSCULAR HEMOGLOB IN eCW1 ([facility]) 29.8 32.0-36.5 MEAN CORPUSCULAR HGB CONC eCW1 ([facility]) 12.6 11.5-14.5 RED CELL DISTRIBUTION WID TH eCW1 ([facility]) 286 150-450 PLATELET COUNT, AUTOMATED eCW1 ([facility]) 64.8 36.0-66.0 NEUTROPHILS % eCW1 ([facility]) 2.7 0.0-3.0 EOS % eCW1 ([facility]) 0.5 0.0-1.0 BASO % eCW1 ([facility]) 24.4 24.0-44.0 LYMPH % eCW1 ([facility]) 7.3 0.0-5.0 MONO % eCW1 ([facility]) 1.6 1.5-5.0 LYMPH # eCW1 ([facility]) 4.3 1.5-8.5 NEUTROPHILS # eCW1 ([facility]) 0.5 0.0-0.8 MONO # eCW1 ([facility]) 0.2 0.0-0.5 EOS # eCW1 ([facility]) 0.0 0.0-0.2 [facility]) ID Date Data Source [id number] 12/24/2019 12:00:00 AM EDT [facility] [place] [facility] Juan ZAPATA Patient Name: WALDO ROMO [id number] [facility] : 1935[place] [address] Date of Exam: 12/24/2019#: Fax: [phone] EXAM: CT LUMBAR SPINE WITHOUT CONTRASTPROCEDURE INFORMATION:Exam: CT Lumbar Spine Without ContrastExam date and time: 12/24/2019 2:22 PM Age: 84 years oldClinical indication: Low back pain; Prior surgery; Surgery date: 6+ months;Surgery type: FusionTECHNIQUE: Imaging protocol: Computed tomography images of the lumbar spinewithout contrast. Radiation optimization: All CT scans at this facility useat least one of these dose optimization techniques: automated exposurecontrol; mA and/or kV adjustment per patient size (includes targeted examswhere dose is matched to clinical indication); or iterative reconstruction.COMPARISON: MRI LUMBAR SPINE WITHOUT&WITH CONTRAST 05/03/2017 2:38 PMFINDINGS:Vertebrae: There is pedicle screw fixation from L4 through S1.Surgicalinstrumentation is in stable position and shows no evidence ofcomplications. There has been posterior unroofing from L3 through L5. Grade1 spondylolisthesis of L4 on L5 which presumably reflects chronic facetarthropathy with no obvious spondylolysis, however, facet architecture hasbeen significantly modified by degenerative disease and fusion surgery.Discs/Spinal canal/Neural foramina: There is chronic disc degenerativedisease at T12-L1 with mild intrusion canal but no significant foraminalstenosis. There is moderate disc osteophytic disease at L1-L2 with nosignificant encroachment canal or foraminal stenosis. There is a chronic 5mm retrolisthesis of L2 on L3 with moderate right and mild foraminalstenosis. There is chronic degenerative disc narrowing and vacuum effectL3-L4 with moderate disc osteophytic encroachment foramina withoutsubarticular stenosis. There is moderate chronic facet arthropathy at L5- K5jbrhldy significant disc disease. There is no nerve root compression.Stomach and bowel: Moderate diverticulosis is present in the sigmoid anddescending colon.Vasculature: The vasculature demonstrates diffuse moderate atheroscleroticcalcification.Soft tissues: The included paraspinal soft tissues appear normal.IMPRESSION:1. Grade 1 spondylolisthesis of L4 on L5 which presumably reflects chronicfacet arthropathy with no obvious spondylolysis, however, facetarchitecture has been significantly modified by degenerative disease andfusion surgery.2. There is a chronic 5 mm retrolisthesis of L2 on L3 with moderate rightand mild foraminal stenosis. 3. There is chronic degenerative discnarrowing and vacuum effect L3-L4 with moderate disc osteophyticencroachment foramina without subarticular stenosis.4. There is moderate chronic facet arthropathy at L5-S1 without significantdisc disease. There is no nerve root compression.Thank you for allowing us to participate in the care of your patient.Dictated and Authenticated by: Adam Rasmussen MD 12/25/2019 10:[address] [facility] ([place] [facility])VradV/jmcTmartk you for referring WALDO ROMO to our office. Electronically Signed - LV 12/25/19 14:52 Name Value Range Interpretation Code Description Data Hue rce(s) Supporting Document(s) ID Date Data Source [id number] 12/14/2019 04:44:00 PM EDT [facility] ([facility]) Name Value Range Interpretation Code Description Data Hue rce(s) Supporting Document(s) Creatinine For GFR 0.85 mg/dL 0.55-1.30 [facility] ([facility]) Glomerular Filtration Rate Laboratory test result MEDENT ([facility]) <content>Units are mL/min/1.73 m2</content>
<content></content>
<content>Chronic Kidney Disease Staging per NKF:</content>
<content></content>
<content>Stage I & II GFR >=60 Normal to Mildly Decreased</content>
<content>Stage III GFR 30-59 Moderately Decreased</content>
<content>Stage IV GFR 15-29 Severely Decreased</content>
<content>Stage V GFR <15 Very Little GFR Left</content>
<content>ESRD GFR <15 on SOFTWARE DEVELOPMENT COORDINATOR</content>
<content></content> ID Date Data Source [id number] 12/14/2019 04:44:00 PM EDT MEDENT ([facility]) Name Value Range Interpretation Code Description Data Hue rce(s) Supporting Document(s) Urea nitrogen [Mass/volume] in Serum or Plasma 18 mg/dL 10-12 [facility] ID Date Data Source [id number] 11/23/2019 12:00:00 AM EDT [facility] [place] [facility] Juan ZAPATA Patient Name: WALDO ROMO [id number] [facility] Date of : 1935[place] [address] Date of Exam: 11/23/2019#: Fax: [phone] EXAM: ARTHROCENTESIS LTHIP-ASPIR / INJ STEROID/PAIN MEDSLEFT HIP INJECTION:The procedure was performed by DEMETRIUS Schmid under the generalsupervision of Dr. Fernandez.The benefits and risks including, but not limited to pain, infection,bleeding, and anaphylaxis were explained to the patient and informedconsent was obtained.The left femoral neck was localized using fluoroscopic guidance. The skinwas prepped and draped in a sterile fashion. 1% Lidocaine was used as alocal anesthetic. Using fluoroscopic guidance, a #22 gauge spinal needlewas inserted and advanced to the femoral neck. 0.5 cc of Omnipaque 300 wasinjected to verify placement. 7 cc of a solution containing 5 cc of 1%Lidocaine and 2 cc of DepoMedrol 40 mg was injected into the joint space.The needle was then removed.The patient tolerated the procedure well and t here were no immediatecomplications.Fluoroscopy time was 3 seconds at 3 pulses/second. This is equal to .75seconds continuous fluoroscopy time which is a 75% reduction in radiation.LILIAM Basurto/Jovanna singh for referring WALDO ROMO to our office. Electronically Signed - KADI FERNANDEZ MD 11/23/19 16:58 Name Value Range Interpretation Code Description Data Hue rce(s) Supporting Document(s) ID Date Data Source [id number] 11/23/2019 12:00:00 AM EDT [facility] [place] [facility] Juan ZAPATA Patient Name: WALDO ROMO [id number] [facility] Date of : 1935[place] [address] Date of Exam: 11/23/2019PH#: Fax: [phone] EXAM: ARTHROCENTESIS LTHIP-ASPIR / INJ STEROID/PAIN MEDSLEFT HIP INJECTION:The procedure was performed by DEMETRIUS Schmid under the generalsupervision of Dr. Fernandez.The benefits and risks including, but not limited to pain, infection,bleeding, and anaphylaxis were explained to the patient and informedconsent was obtained.The left femoral neck was localized using fluoroscopic guidance. The skinwas prepped and draped in a sterile fashion. 1% Lidocaine was used as alocal anesthetic. Using fluoroscopic guidance, a #22 gauge spinal needlewas inserted and advanced to the femoral neck. 0.5 cc of Omnipaque 300 wasinjected to verify placement. 7 cc of a solution containing 5 cc of 1%Lidocaine and 2 cc of DepoMedrol 40 mg was injected into the joint space.The needle was then removed.The patient tolerated the procedure well and t here were no immediatecomplications.Fluoroscopy time was 3 seconds at 3 pulses/second. This is equal to .75seconds continuous fluoroscopy time which is a 75% reduction in radiation.LILIAM Basurto/Jovanna singh for referring WALDO ROMO to our office. Electronically Signed - KADI FERNANDEZ MD 11/23/19 16:58 Name Value Range Interpretation Code Description Data Hue rce(s) Supporting Document(s) ID Date Data Source PERIPH SMEAR FOR PATH REVIEW 08/09/2019 12:00:00 AM EDT eCW1 ([facility]ly [facility]) Name Value Range Interpretation Code Description Data Hue rce(s) Supporting Document(s) PERIPHERAL SMEAR SOURCE eCW1 ([facility]) Report SLIDE REVIEW eCW1 ([facility]) ID Date Data Source ERYTHROCYTE SEDIMENTATION RATE 08/09/2019 12:00:00 AM EDT eC W1 ([facility]) Name Value Range Interpretation Code Description Data Hue rce(s) Supporting Document(s) 26 0-30 ERYTHROCYTE SEDIMENTATION RATE eCW1 ([facility]) ID Date Data Source C REACTIVE PROTEIN QUANTITATIV (At [facility]) 08/09/2019 12:00 :00 AM EDT eCW1 ([facility]) Name Value Range Interpretation Code Description Data Hue rce(s) Supporting Document(s) 0.30 0.00-0.30 C REACTIVE PROTEIN QUANTI TATIV eCW1 ([facility]) ID Date Data Source LYME DISEASE SCRN WITH CONFIRM 08/02/2019 12:00:00 AM EDT eC W1 ([facility]) Name Value Range Interpretation Code Description Data Hue rce(s) Supporting Document(s) <0.91 0.00-0.90 Lyme Disease IgG/IgM Anti dayana eCW1 ([facility]) <0.80 0.00-0.79 Lyme Disease IgM Ab Quant itati eCW1 ([facility]) ID Date Data Source JAYANT TITER & PATTERN 06/04/2019 12:00:00 AM EDT eCW1 ([facility]) Name Value Range Interpretation Code Description Data Hue rce(s) Supporting Document(s) Positive . JAYANT (HEP2) eCW1 ([facility]) ID Date Data Source Pathology Request For Service 06/04/2019 12:00:00 AM EDT eCW 1 ([facility]) Name Value Range Interpretation Code Description Data Hue rce(s) Supporting Document(s) PERIPHERAL SMEAR-PATH REVIEW e CW1 ([facility]) ID Date Data Source CYCLIC CITRULLINATED PEPTIDE 06/04/2019 12:00:00 AM EDT eCW1 ([facility]) Name Value Range Interpretation Code Description Data Hue rce(s) Supporting Document(s) 8 0-19 CYCLIC CITRULLINATED PEPTIDE e CW1 ([facility]) ID Date Data Source JAYANT 06/04/2019 12:00:00 AM EDT eCW1 ([facility]) Name Value Range Interpretation Code Description Data Hue rce(s) Supporting Document(s) Negative Negative ANTINUCLEAR ANTIBODIES DI RECT eCW1 ([facility]) ID Date Data Source URIC ACID 06/04/2019 12:00:00 AM EDT eCW1 ([facility]) Name Value Range Interpretation Code Description Data Hue rce(s) Supporting Document(s) 5.6 2.6-6.0 URIC ACID eCW1 ([facility]) ID Date Data Source FREE T4 & TSH PANEL 06/04/2019 12:00:00 AM EDT eCW1 ([facility]) Name Value Range Interpretation Code Description Data Hue rce(s) Supporting Document(s) 1.38 0.76-1.46 FREE T4 eCW1 ([facility]) 2.280 0.358-3.740 THYROID STIMULATING HORM ONE eCW1 ([facility]) ID Date Data Source AMMONIA 06/04/2019 12:00:00 AM EDT eCW1 ([facility]) Name Value Range Interpretation Code Description Data Hue rce(s) Supporting Document(s) < 10 <32 AMMONIA eCW1 ([facility]) ID Date Data Source VITAMIN D 25-HYDROXY 05/22/2019 12:00:00 AM EST eCW1 ([facility]) Name Value Range Interpretation Code Description Data Hue rce(s) Supporting Document(s) 24.7 30.0-100.0 TOTAL 25(OH) VITAMIN D eC W1 ([facility]) TOTAL 25(OH) VITAMIN D ID Date Data Source VITAMIN B12 LEVEL 05/22/2019 12:00:00 AM EST eCW1 ([facility]) Name Value Range Interpretation Code Description Data Hue rce(s) Supporting Document(s) [id number] VITAMIN B12 LEVEL eCW1 ([facility]) ID Date Data Source LIPID PANEL (CARDIAC RISK) 05/22/2019 12:00:00 AM EST eCW1 ( [facility]) Name Value Range Interpretation Code Description Data Hue rce(s) Supporting Document(s) Cholesterol in LDL [Mass/volume] in Serum or Plasma by calculation 34 <100 LDL CHOLESTEROL eCW1 ([facility]) Cholesterol in HDL [Moles/volume] in Serum or Plasma 56 >40 HDL CHOLESTEROL eCW1 ([facility]) Cholesterol [Moles/volume] in Serum or Plasma 122 <200 CHOLESTEROL LEVEL eCW1 ([facility]) Triglyceride [Mass/volume] in Serum or Plasma by calculation 158 <150 TRIGLYCERIDES LEVEL eCW1 ([facility]) 66 NON-HDL-C eCW1 ([facility]) 2.178 <5 CHOLESTEROL RISK RATIO eCW1 ([facility]) ID Date Data Source [id number] 05/22/2019 12:00:00 AM EST eCW1 ([facility]) Name Value Range Interpretation Code Description Data Hue rce(s) Supporting Document(s) Hemoglobin A1c/Hemoglobin.total in Blood 6.3 HEMOGLOBIN A1c eCW1 ([facility]) HEMOGLOBIN A1c ID Date Data Source PTH INTACT 05/22/2019 12:00:00 AM EST eCW1 ([facility]) Name Value Range Interpretation Code Description Data Hue rce(s) Supporting Document(s) 130.6 18.5-88.0 PTH INTACT eCW1 ([facility]) PTH INTACT ID Date Data Source Reticulocyte Count Sysmex 05/22/2019 12:00:00 AM EST eCW1 ([facility]) Name Value Range Interpretation Code Description Data Hue rce(s) Supporting Document(s) 1.6 0.5-1.5 RETICULOCYTE % eCW1 ([facility]) ID Date Data Source Clostridium Difficile By PCR 03/18/2019 12:00:00 AM EST eCW1 ([facility]) Name Value Range Interpretation Code Description Data Hue rce(s) Supporting Document(s) POSITIVE NEGATIVE CLOSTRIDIUM DIFFICILE PCR eCW1 ([facility]) PRESUMPTIVE NEGATIVE NEGATIVE NAP1 027 FOR CD IFF PCR eCW1 ([facility]) Procedure Social History Code Duration Value Status Description Data Source(s ) Smoking 04/07/2020 12:00:00 AM EST Never Smoker completed Never S moker eCW1 ([facility]) Smoking 04/07/2020 12:00:00 AM EST Never Smoker completed Never S moker eCW1 ([facility]) Smoking 04/07/2020 12:00:00 AM EST Never Smoker completed Never S moker eCW1 ([facility]) Smoking 04/07/2020 12:00:00 AM EST Never Smoker completed Never S moker eCW1 ([facility]) Smoking 04/07/2020 12:00:00 AM EST Never Smoker completed Never S moker eCW1 ([facility]) Smoking 01/15/2020 12:00:00 AM EDT Never Smoker completed Never S moker eCW1 ([facility]) Smoking 01/15/2020 12:00:00 AM EDT Never Smoker completed Never S moker eCW1 ([facility]) Smoking 01/15/2020 12:00:00 AM EDT Never Smoker completed Never S moker eCW1 ([facility]) Smoking 01/15/2020 12:00:00 AM EDT Never Smoker completed Never S moker eCW1 ([facility]) Smoking 01/15/2020 12:00:00 AM EDT Never Smoker completed Never S moker eCW1 ([facility]) Smoking 01/15/2020 12:00:00 AM EDT Never Smoker completed Never S moker eCW1 ([facility]) Smoking 01/15/2020 12:00:00 AM EDT Never Smoker completed Never S moker eCW1 ([facility]) Smoking 08/16/2019 12:00:00 AM EDT Never Smoker completed Never S moker eCW1 ([facility]) Smoking 08/16/2019 12:00:00 AM EDT Never Smoker completed Never S moker eCW1 ([facility]) Smoking 08/16/2019 12:00:00 AM EDT Never Smoker completed Never S moker eCW1 ([facility]) Smoking 08/16/2019 12:00:00 AM EDT Never Smoker completed Never S moker eCW1 ([facility]) Vital Signs ID Date Data Source UNK Name Value Range Interpretation Code Description Data Source(s) Body temperature 96.4 [degF] 96.4 [degF] MEDENT ([facility]) Body mass index (BMI) [Ratio] 31.27 kg/m2 31.27 kg/m2 eCW1 ([facility]) Body height 62 [in_i] 62 [in_i] eCW1 ([facility]) Body weight 171 [lb_av] 171 [lb_av] eCW1 ([facility]) Diastolic blood pressure 60 mm[Hg] 60 mm[Hg] eCW1 ([facility]) Systolic blood pressure 132 mm[Hg] 132 mm[Hg] e CW1 ([facility]) Body temperature 97.5 [degF] 97.5 [degF] eCW1 ( [facility]) Respiratory rate 18 /min 18 /min eCW1 ([facility]) Heart rate 80 /min 80 /min eCW1 ([facility]) Systolic blood pressure 170 mm[Hg] 170 mm[Hg] A THENA ([facility]) Body height 60 [in_i] 60 [in_i] KIMBERLY ([facility]) Diastolic blood pressure 75 mm[Hg] 75 mm[Hg] KIMBERLY ([facility]) Systolic blood pressure 170 mm[Hg] 170 mm[Hg] A THENA ([facility]) Body height 60 [in_i] 60 [in_i] KIMBERLY ([facility]) Diastolic blood pressure 75 mm[Hg] 75 mm[Hg] KIMBERLY ([facility]) Systolic blood pressure 170 mm[Hg] 170 mm[Hg] A THENA ([facility]) Body height 60 [in_i] 60 [in_i] KIMBERLY ([facility]) Diastolic blood pressure 75 mm[Hg] 75 mm[Hg] KIMBERLY ([facility]) Body mass index (BMI) [Ratio] 33.0 kg/m2 33.0 k g/m2 MEDENT ([facility] Heart rate 102 /min 102 /min MEDENT ([facility] Diastolic blood pressure 66 mm[Hg] 66 mm[Hg] MED[facility] ([facility] Systolic blood pressure 122 mm[Hg] 122 mm[Hg] M EDENT ([facility] Body weight 169.00 [lb_av] 169.00 [lb_av] MEDEN T ([facility] Body height 60 [in_i] 60 [in_i] [facility] ([facility] 5'0" Diastolic blood pressure 58 mm[Hg] 58 mm[Hg] eCW1 ([facility]) Systolic blood pressure 106 mm[Hg] 106 mm[Hg] e CW1 ([facility]) Body temperature 97.8 [degF] 97.8 [degF] eCW1 ( [facility]) Respiratory rate 18 /min 18 /min eCW1 ([facility]) Heart rate 109 /min 109 /min eCW1 ([facility]) Body mass index (BMI) [Ratio] 31.05 kg/m2 31.05 kg/m2 W1 ([facility]) Body height 62 [in_i] 62 [in_i] eCW1 ([facility]) Body weight 169.8 [lb_av] 169.8 [lb_av] eCW1 ([facility]) Body mass index (BMI) [Ratio] 31.3 kg/m2 31.3 k g/m2 MEDENT ([facility] Body weight 160.25 [lb_av] 160.25 [lb_av] MEDEN T ([facility] ) Body height 60 [in_i] 60 [in_i] MEDENT ([facility] ) 5'0" Body temperature 96.0 [degF] 96.0 [degF] MEDENT ([facility] ) Body mass index (BMI) [Ratio] 28.7 kg/m2 28.7 k g/m2 MED[facility] ([facility] ) Body weight 152.00 [lb_av] 152.00 [lb_av] MEDEN T ([facility] ) Body height 61 [in_i] 61 [in_i] MEDENT ([facility] ) 5'1" Body temperature 98.3 [degF] 98.3 [degF] MED[facility] ([facility] ) Diastolic blood pressure 62 mm[Hg] 62 mm[Hg] eCW1 ([facility]) Systolic blood pressure 110 mm[Hg] 110 mm[Hg] e CW1 ([facility]) Body temperature 97.1 [degF] 97.1 [degF] eCW1 ( [facility]) Respiratory rate 18 /min 18 /min eCW1 ([facility]) Heart rate 79 /min 79 /min eCW1 ([facility]) Body mass index (BMI) [Ratio] 29.55 kg/m2 29.55 kg/m2 eCW1 ([facility]) Body height 62 [in_us] 62 [in_us] eCW1 ([facility]) Body weight Measured 161.6 [lb_av] 161.6 [lb_av ] eCW1 ([facility]) Diastolic blood pressure 62 mm[Hg] 62 mm[Hg] eCW1 ([facility]) Systolic blood pressure 107 mm[Hg] 107 mm[Hg] e CW1 ([facility]) Body temperature 97.3 [degF] 97.3 [degF] eCW1 ( [facility]) Respiratory rate 17 /min 17 /min eCW1 ([facility]) Heart rate 67 /min 67 /min eCW1 ([facility]) Body mass index (BMI) [Ratio] 30.21 kg/m2 30.21 kg/m2 eCW1 ([facility]) Body height 62 [in_us] 62 [in_us] eCW1 ([facility]) Body weight Measured 165.2 [lb_av] 165.2 [lb_av ] eCW1 ([facility]) Diastolic blood pressure 60 mm[Hg] 60 mm[Hg] eCW1 ([facility]) Systolic blood pressure 140 mm[Hg] 140 mm[Hg] e CW1 ([facility]) Body temperature 97.9 [degF] 97.9 [degF] eCW1 ( [facility]) Respiratory rate 18 /min 18 /min eCW1 ([facility]) Heart rate 65 /min 65 /min eCW1 ([facility]) Body mass index (BMI) [Ratio] 29.66 kg/m2 29.66 kg/m2 eCW1 ([facility]) Body height 62 [in_us] 62 [in_us] eCW1 ([facility]) Body weight Measured 162.2 [lb_av] 162.2 [lb_av ] eCW1 ([facility]) Diastolic blood pressure 82 mm[Hg] 82 mm[Hg] eCW1 ([facility]) Systolic blood pressure 128 mm[Hg] 128 mm[Hg] e CW1 ([facility]) Body mass index (BMI) [Ratio] 29.63 kg/m2 29.63 kg/m2 eCW1 ([facility]) Body height 62 [in_us] 62 [in_us] eCW1 ([facility]) Body weight Measured 162 [lb_av] 162 [lb_av] eC W1 ([facility]) Diastolic blood pressure 68 mm[Hg] 68 mm[Hg] eCW1 ([facility]) Systolic blood pressure 130 mm[Hg] 130 mm[Hg] e CW1 ([facility]) Body temperature 96.5 [degF] 96.5 [degF] eCW1 ( [facility]) Respiratory rate 20 /min 20 /min eCW1 ([facility]) Heart rate 98 /min 98 /min eCW1 ([facility]) Body mass index (BMI) [Ratio] 29.85 kg/m2 29.85 kg/m2 eCW1 ([facility]) Body height 62 [in_us] 62 [in_us] eCW1 ([facility]) Body weight Measured 163.2 [lb_av] 163.2 [lb_av ] eCW1 ([facility]) Diastolic blood pressure 76 mm[Hg] 76 mm[Hg] eCW1 ([facility]) Systolic blood pressure 128 mm[Hg] 128 mm[Hg] e CW1 ([facility]) Body temperature 96.3 [degF] 96.3 [degF] eCW1 ( [facility]) Respiratory rate 20 /min 20 /min eCW1 ([facility]) Heart rate 100 /min 100 /min eCW1 ([facility]) Body mass index (BMI) [Ratio] 30.87 kg/m2 30.87 kg/m2 eCW1 ([facility]) Body height 62 [in_us] 62 [in_us] eCW1 ([facility]) Body weight Measured 168.8 [lb_av] 168.8 [lb_av ] eCW1 ([facility]) Systolic blood pressure 164 mm[Hg] 164 mm[Hg] A THENA ([facility]) Body height 60 [in_i] 60 [in_i] KIMBERLY ([facility]) Diastolic blood pressure 77 mm[Hg] 77 mm[Hg] KIMBERLY ([facility]) Systolic blood pressure 164 mm[Hg] 164 mm[Hg] A THENA ([facility]) Body height 60 [in_i] 60 [in_i] KIMBERLY ([facility]) Diastolic blood pressure 77 mm[Hg] 77 mm[Hg] KIMBERLY ([facility]) Systolic blood pressure 164 mm[Hg] 164 mm[Hg] A THENA ([facility]) Body height 60 [in_i] 60 [in_i] KIMBERLY ([facility]) Diastolic blood pressure 77 mm[Hg] 77 mm[Hg] KIMBERLY ([facility]) Systolic blood pressure 164 mm[Hg] 164 mm[Hg] A THENA ([facility]) Body height 60 [in_i] 60 [in_i] KIMBERLY ([facility]) Diastolic blood pressure 77 mm[Hg] 77 mm[Hg] KIMBERLY ([facility]) Systolic blood pressure 164 mm[Hg] 164 mm[Hg] A THENA ([facility]) Body height 60 [in_i] 60 [in_i] KIMBERLY ([facility]) Diastolic blood pressure 77 mm[Hg] 77 mm[Hg] KIMBERLY ([facility]) Systolic blood pressure 164 mm[Hg] 164 mm[Hg] A THENA ([facility]) Body height 60 [in_i] 60 [in_i] KIMBERLY ([facility]) Diastolic blood pressure 77 mm[Hg] 77 mm[Hg] KIMBERLY ([facility]) Systolic blood pressure 164 mm[Hg] 164 mm[Hg] A THENA ([facility]) Body height 60 [in_i] 60 [in_i] KIMBERLY ([facility]) Diastolic blood pressure 77 mm[Hg] 77 mm[Hg] KIMBERLY ([facility]) Systolic blood pressure 164 mm[Hg] 164 mm[Hg] A THENA ([facility]) Body height 60 [in_i] 60 [in_i] KIMBERLY ([facility]) Diastolic blood pressure 77 mm[Hg] 77 mm[Hg] KIMBERLY ([facility]) Systolic blood pressure 164 mm[Hg] 164 mm[Hg] A THENA ([facility]) Body height 60 [in_i] 60 [in_i] KIMBERLY ([facility]) Diastolic blood pressure 77 mm[Hg] 77 mm[Hg] KIMBERLY ([facility]) Diastolic blood pressure 64 mm[Hg] 64 mm[Hg] eCW1 ([facility]) Systolic blood pressure 116 mm[Hg] 116 mm[Hg] e CW1 ([facility]) Body temperature 96.3 [degF] 96.3 [degF] eCW1 ( [facility]) Respiratory rate 20 /min 20 /min eCW1 ([facility]) Heart rate 88 /min 88 /min eCW1 ([facility]) Body mass index (BMI) [Ratio] 30.32 kg/m2 30.32 kg/m2 eCW1 ([facility]) Body height 62 [in_us] 62 [in_us] eCW1 ([facility]) Body weight Measured 165.8 [lb_av] 165.8 [lb_av ] eCW1 ([facility]) Systolic blood pressure 154 mm[Hg] 154 mm[Hg] A THENA ([facility]) Body height 60 [in_i] 60 [in_i] KIMBERLY ([facility]) Diastolic blood pressure 88 mm[Hg] 88 mm[Hg] KIMBERLY ([facility]) Systolic blood pressure 154 mm[Hg] 154 mm[Hg] A THENA ([facility]) Body height 60 [in_i] 60 [in_i] KIMBERLY ([facility]) Diastolic blood pressure 88 mm[Hg] 88 mm[Hg] KIMBERLY ([facility]) Systolic blood pressure 154 mm[Hg] 154 mm[Hg] A THENA ([facility]) Body height 60 [in_i] 60 [in_i] KIMBERLY ([facility]) Diastolic blood pressure 88 mm[Hg] 88 mm[Hg] KIMBERLY ([facility]) Systolic blood pressure 154 mm[Hg] 154 mm[Hg] A THENA ([facility]) Body height 60 [in_i] 60 [in_i] KIMBERLY ([facility]) Diastolic blood pressure 88 mm[Hg] 88 mm[Hg] KIMBERLY ([facility]) Systolic blood pressure 154 mm[Hg] 154 mm[Hg] A THENA ([facility]) Body height 60 [in_i] 60 [in_i] KIMBERLY ([facility]) Diastolic blood pressure 88 mm[Hg] 88 mm[Hg] KIMBERLY ([facility]) Systolic blood pressure 154 mm[Hg] 154 mm[Hg] A THENA ([facility]) Body height 60 [in_i] 60 [in_i] KIMBERLY ([facility]) Diastolic blood pressure 88 mm[Hg] 88 mm[Hg] KIMBERLY ([facility]) Systolic blood pressure 154 mm[Hg] 154 mm[Hg] A THENA ([facility]) Body height 60 [in_i] 60 [in_i] KIMBERLY ([facility]) Diastolic blood pressure 88 mm[Hg] 88 mm[Hg] KIMBERLY ([facility]) Systolic blood pressure 154 mm[Hg] 154 mm[Hg] A THENA ([facility]) Body height 60 [in_i] 60 [in_i] KIMBERLY ([facility]) Diastolic blood pressure 88 mm[Hg] 88 mm[Hg] KIMBERLY ([facility]) Systolic blood pressure 154 mm[Hg] 154 mm[Hg] A THENA ([facility]) Body height 60 [in_i] 60 [in_i] KIMBERLY ([facility]) Diastolic blood pressure 88 mm[Hg] 88 mm[Hg] KIMBERLY ([facility]) Systolic blood pressure 154 mm[Hg] 154 mm[Hg] A THENA ([facility]) Body height 60 [in_i] 60 [in_i] KIMBERLY ([facility]) Diastolic blood pressure 88 mm[Hg] 88 mm[Hg] KIMBERLY ([facility]) Diastolic blood pressure 70 mm[Hg] 70 mm[Hg] eCW1 ([facility]) Systolic blood pressure 112 mm[Hg] 112 mm[Hg] e CW1 ([facility]) Body temperature 96.7 [degF] 96.7 [degF] eCW1 ( [facility]) Respiratory rate 18 /min 18 /min eCW1 ([facility]) Heart rate 78 /min 78 /min eCW1 ([facility]) Body mass index (BMI) [Ratio] 30.54 kg/m2 30.54 kg/m2 eCW1 ([facility]) Body height 62 [in_us] 62 [in_us] eCW1 ([facility]) Body weight Measured 167 [lb_av] 167 [lb_av] eC W1 ([facility]) Diastolic blood pressure 62 mm[Hg] 62 mm[Hg] eCW1 ([facility]) Systolic blood pressure 116 mm[Hg] 116 mm[Hg] e CW1 ([facility]) Body temperature 96.7 [degF] 96.7 [degF] eCW1 ( [facility]) Respiratory rate 20 /min 20 /min eCW1 ([facility]) Heart rate 93 /min 93 /min eCW1 ([facility]) Body mass index (BMI) [Ratio] 30.14 kg/m2 30.14 kg/m2 W1 ([facility]) Body height 62 [in_us] 62 [in_us] eCW1 ([facility]) Body weight Measured 164.8 [lb_av] 164.8 [lb_av ] eCW1 ([facility]) Patient Treatment Plan of Care Planned Activity Planned Date Details Description Data Source (s) Vancomycin 125 MG Oral Capsule [Vancocin] 04/15/2020 12:00:00 AM ES T eCW1 ([facility]) Vancomycin 125 MG Oral Capsule [Vancocin] 04/15/2020 12:00:00 AM ES T eCW1 ([facility]) celecoxib 200 MG Oral Capsule [Celebrex] 01/15/2020 12:00:00 AM EDT eCW1 ([facility]) Cephalexin 250 MG Oral Capsule 08/02/2019 12:00:00 AM EDT eCW1 ([facility]) NITROFURANTOIN, MACROCRYSTALS 25 MG / Ni trofurantoin, Monohydrate 75 MG Oral Capsule [Macrobid] 06/07/2019 12:00:00 AM EDT eC W1 ([facility]) Prednisone 20 MG Oral Tablet 05/22/2019 12:00:00 AM EST eCW1 ([facility]) Vancomycin 125 MG Oral Capsule 03/26/2019 12:00:00 AM EST eCW1 ([facility]) cefdinir 300 MG Oral Capsule 03/06/2019 12:00:00 AM EST eCW1 ([facility]) Rivaroxaban 20 MG 03/06/2019 12:00:00 AM EST eCW1 ([facility]) Ondansetron 4 MG Oral Tablet 03/06/2019 12:00:00 AM EST eCW1 ([facility]) rivaroxaban 15 MG Oral Tablet [Xarelto] 02/27/2019 12:00:00 AM EST eCW1 ([facility]) rivaroxaban 15 MG Oral Tablet [Xarelto] KIMBERLY ([facility]) Vancomycin 125 MG Oral Capsule KIMBERLY ([facility]) Simvastatin 20 MG Oral Tablet KIMBERLY ([facility]) Prednisone 20 MG Oral Tablet KIMBERLY ([facility]) pantoprazole 20 MG Delayed Release Oral Tablet KIMBERLY ([facility]) NITROFURANTOIN, MACROCRYSTALS 25 MG / Ni trofurantoin, Monohydrate 75 MG Oral Capsule KIMBERLY ([facility]) Esomeprazole 20 MG Delayed Release Oral Capsule [Nexium] KIMBERLY ([facility]) 12 HR Guaifenesin 600 MG Extended Release Oral Tablet KIMBERLY ([facility]) Magnesium Oxide 400 MG Oral Tablet KIMBERLY ([facility]) Fluad 65yr up(PF)45 mcg(15 mcgx3)/0.5 mL intramuscular syri nge KIMBERLY ([facility]) apixaban 5 MG Oral Tablet [Eliquis] KIMBERLY ([facility]) Cyclobenzaprine hydrochloride 5 MG Oral Tablet KIMBERLY ([facility]) Cyclobenzaprine hydrochloride 10 MG Oral Tablet KIMBERLY ([facility]) Cephalexin 250 MG Oral Capsule KIMBERLY ([facility]) cefdinir 300 MG Oral Capsule KIMBERLY ([facility]) rivaroxaban 15 MG Oral Tablet [Xarelto] KIMBERLY ([facility]) Vancomycin 125 MG Oral Capsule KIMBERLY ([facility]) Simvastatin 20 MG Oral Tablet KIMBERLY ([facility]) Prednisone 20 MG Oral Tablet KIMBERLY ([facility]) rivaroxaban 15 MG Oral Tablet [Xarelto] KIMBERLY ([facility]) Vancomycin 125 MG Oral Capsule KIMBERLY ([facility]) Simvastatin 20 MG Oral Tablet KIMBERLY ([facility]) Prednisone 20 MG Oral Tablet KIMBERLY ([facility]) paroxetine 20 mg tablet ATHE NA ([facility]) pantoprazole 20 MG Delayed Release Oral Tablet KIMBERLY ([facility]) NITROFURANTOIN, MACROCRYSTALS 25 MG / Ni trofurantoin, Monohydrate 75 MG Oral Capsule [facility]IMBERLY [facility] Esomeprazole 20 MG Delayed Release Oral Capsule [Nexium] KIMBERLY ([facility]) 12 HR Guaifenesin 600 MG Extended Release Oral Tablet KIMBERLY ([facility]) Magnesium Oxide 400 MG Oral Tablet KIMBERLY ([facility]) Fluad 65yr up(PF)45 mcg(15 mcgx3)/0.5 mL intramuscular syri nge KIMBERLY ([facility]) apixaban 5 MG Oral Tablet [Eliquis] KIMBERLY ([facility]) Cyclobenzaprine hydrochloride 5 MG Oral Tablet KIMBERLY ([facility]) Cyclobenzaprine hydrochloride 10 MG Oral Tablet KIMBERLY ([facility]) Cephalexin 250 MG Oral Capsule KIMBERLY ([facility]) cefdinir 300 MG Oral Capsule KIMBERLY ([facility]) pantoprazole 20 MG Delayed Release Oral Tablet KIMBERLY ([facility]) NITROFURANTOIN, MACROCRYSTALS 25 MG / Ni trofurantoin, Monohydrate 75 MG Oral Capsule KIMBERLY [facility] Esomeprazole 20 MG Delayed Release Oral Capsule [Nexium] KIMBERLY ([facility]) 12 HR Guaifenesin 600 MG Extended Release Oral Tablet KIMBERLY ([facility]) Magnesium Oxide 400 MG Oral Tablet KIMBERLY ([facility]) Fluad 65yr up(PF)45 mcg(15 mcgx3)/0.5 mL intramuscular syri nge KIMBERLY ([facility]) apixaban 5 MG Oral Tablet [Eliquis] KIMBERLY ([facility]) Cyclobenzaprine hydrochloride 5 MG Oral Tablet KIMBERLY ([facility]) Cyclobenzaprine hydrochloride 10 MG Oral Tablet KIMBERLY ([facility]) Cephalexin 250 MG Oral Capsule KIMBERLY ([facility]) cefdinir 300 MG Oral Capsule KIMBERLY ([facility]) rivaroxaban 15 MG Oral Tablet [Xarelto] KIMBERLY ([facility]) Fluad 65yr up(PF)45 mcg(15 mcgx3)/0.5 mL intramuscular syri nge KIMBERLY ([facility]) apixaban 5 MG Oral Tablet [Eliquis] KIMBERLY ([facility]) rivaroxaban 15 MG Oral Tablet [Xarelto] KIMBERLY ([facility]) Fluad 65yr up(PF)45 mcg(15 mcgx3)/0.5 mL intramuscular syri nge KIMBERLY ([facility]) Esomeprazole 40 MG Delayed Release Oral Capsule KIMBERLY ([facility]) apixaban 5 MG Oral Tablet [Eliquis] KIMBERLY ([facility]) cefdinir 300 MG Oral Capsule KIMBERLY ([facility]) rivaroxaban 15 MG Oral Tablet [Xarelto] KIMBERLY ([facility]) Fluad 65yr up(PF)45 mcg(15 mcgx3)/0.5 mL intramuscular syri nge KIMBERLY ([facility]) apixaban 5 MG Oral Tablet [Eliquis] KIMBERLY ([facility]) cefdinir 300 MG Oral Capsule KIMBERLY ([facility]) rivaroxaban 15 MG Oral Tablet [Xarelto] KIMBERLY ([facility]) Fluad 65yr up(PF)45 mcg(15 mcgx3)/0.5 mL intramuscular syri nge KIMBERLY ([facility]) apixaban 5 MG Oral Tablet [Eliquis] KIMBERLY ([facility]) cefdinir 300 MG Oral Capsule KIMBERLY ([facility]) rivaroxaban 15 MG Oral Tablet [Xarelto] KIMBERLY ([facility]) paroxetine 20 mg tablet ATHE NA ([facility]) Fluad 65yr up(PF)45 mcg(15 mcgx3)/0.5 mL intramuscular syri nge KIMBERLY ([facility]) Esomeprazole 40 MG Delayed Release Oral Capsule KIMBERLY ([facility]) apixaban 5 MG Oral Tablet [Eliquis] KIMBERLY ([facility]) cefdinir 300 MG Oral Capsule KIMBERLY ([facility]) cefdinir 300 MG Oral Capsule KIMBERLY ([facility]) rivaroxaban 15 MG Oral Tablet [Xarelto] KIMBERLY ([facility]) Fluad 65yr up(PF)45 mcg(15 mcgx3)/0.5 mL intramuscular syri nge KIMBERLY ([facility]) apixaban 5 MG Oral Tablet [Eliquis] KIMBERLY ([facility]) cefdinir 300 MG Oral Capsule KIMBERLY ([facility]) rivaroxaban 15 MG Oral Tablet [Xarelto] KIMBERLY ([facility]) Fluad 65yr up(PF)45 mcg(15 mcgx3)/0.5 mL intramuscular syri nge KIMBERLY ([facility]) apixaban 5 MG Oral Tablet [Eliquis] KIMBERLY ([facility]) cefdinir 300 MG Oral Capsule KIMBERLY ([facility])
[2020-05-02] MEDS ORDERED: VANC125C3 PO (17:21)
[2020-05-02] MEDS ORDERED: NEXI40GR PO (17:21)
[2020-05-02 19:38] LABS: BASO # 0.1 10^3/uL (0.0-0.2); BASO % 0.5 % (0.0-1.0); EOS # 0.2 10^3/uL (0.0-0.5); EOS % 1.9 % (0.0-3.0); HEMATOCRIT 40.9 % (36.0-47.0); HEMOGLOBIN 12.4 g/dl (12.0-15.5); LYMPH % 28.5 % (24.0-44.0); MEAN CORPUSCULAR HEMOGLOBIN 30.5 pg (27.0-33.0); MEAN CORPUSCULAR HGB CONC 30.3 g/dl (32.0-36.5); MEAN CORPUSCULAR VOLUME 100.5 fl (80.0-96.0); MONO # 0.6 10^3/uL (0.0-0.8); MONO % 5.6 % (0.0-5.0); NEUTROPHILS # 6.7 10^3/uL (1.5-8.5); NEUTROPHILS % 63.1 % (36.0-66.0); PLATELET COUNT, AUTOMATED 273 10^3/uL (150-450); RED BLOOD COUNT 4.07 10^6/uL (4.00-5.40); WHITE BLOOD COUNT 10.5 10^3/uL (4.0-10.0)
[2020-05-02 19:54] LABS: INR 1.23; PROTHROMBIN TIME 15.8 SECONDS (12.5-14.3)
[2020-05-02 19:55] LABS: PARTIAL THROMBOPLASTIN TIME 36.5 SECONDS (24.2-38.5)
[2020-05-02 20:19] LABS: ALBUMIN 4.3 GM/DL (3.2-5.2); ALT/SGPT 28 U/L (12-78); BILIRUBIN,DIRECT 0.1 MG/DL (0.0-0.2); BILIRUBIN,TOTAL 0.4 MG/DL (0.2-1.0); BLOOD UREA NITROGEN 21 MG/DL (7-18); CALCIUM LEVEL 10.4 MG/DL (8.8-10.2); CARBON DIOXIDE LEVEL 29 MEQ/L (21-32); CHLORIDE LEVEL 104 MEQ/L (98-107); GLOMERULAR FILTRATION RATE > 60.0 (>32); GLUCOSE, FASTING 106 MG/DL (70-100); LIPASE 174 U/L (73-393); POTASSIUM SERUM 4.9 MEQ/L (3.5-5.1); SODIUM LEVEL 139 MEQ/L (136-145); TOTAL PROTEIN 7.4 GM/DL (6.4-8.2)
[2020-05-02] MEDS ORDERED: LABETALOL 100MG/20ML VIAL IV STA (20:34)
[2020-05-02] MEDS ORDERED: PANTOPRAZOLE 40MG VIAL (C9113 PER 1) IV ONE (20:45)
[2020-05-02] MEDS ORDERED: PARO20TA3 PO (21:03)
[2020-05-02] MEDS ORDERED: HYDR-4517 PO (21:03)
[2020-05-02 22:48] LABS: RSV AMPLIFICATION NEGATIVE (NEGATIVE)
[2020-05-02 23:27] LABS: PTH INTACT 132.1 PG/ML (18.5-88.0)
[2020-05-02] MEDS ORDERED: FLUTICASONE PROP 0.05% NASAL SPRAY 16 GM (FLONASE) NARES PRN ×2 (23:30→23:45)
--- NOTE | 2020-05-03 00:09 | HPE ---
HISTORY AND PHYSICAL DATE OF ADMISSION: 05/02/2020 CHIEF COMPLAINT: Rectal bleeding. HISTORY OF PRESENT ILLNESS: This is an 84-year-old white female who presents to the Emergency Room with rectal bleeding. She began spotting from the rectum earlier this week and last several bowel movements have contained bright red blood according to her daughter, who is with her here tonight. She has no abdominal pain. No lightheadedness. The only other symptom is she feels tired. It sounds like she has had a history of previous GI bleeds. She is on chronic anticoagulation with Xarelto for a history of pulmonary embolus. It sounds like she previously was on another oral anticoagulant, but that had to be discontinued because of rectal bleeding and she was switched to Xarelto. Patient also has a history of C. diff. Apparently this has been a chronic for her. She has had previous stool transplantation. She is currently on a tapering dose of Vancomycin. I just found a more updated colonoscopy from 2019, a 10 mm polyp was removed at that examination. There were also multiple large diverticula, also internal hemorrhoids. She also had an upper GI done, which was normal. For some reason, she is on more than one PPI. She brings an old list that has Protonix and Nexium on it. There is some concern about this as this might predispose her to C. diff. That last colonoscopy was done after a prior GI hemorrhage. PAST MEDICAL HISTORY: GI bleeds as discussed. She gives a history of PEs and has been on chronic anticoagulation. She has a history of hypertension. She has chronic back pain. 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 She has a history of C. diff as I noted. Her blood work shows periodic elevations in serum calcium for an etiology which is not certain. PAST SURGICAL HISTORY: She has had a hysterectomy, left ring and pinky finger amputation, tonsillectomy, sinus surgery, D and C, bladder suspension, cholecystectomy, carpal tunnel release, back surgery. MEDICATIONS: We are currently awaiting reconciliation of her medications. She is on [place] 5/325, Flexeril, Bisoprolol 10 mg for blood pressure, Diphenhydramine at bedtime, Gabapentin 400 mg t.i.d., Protonix 20 mg, Rosuvastatin 40 mg, potassium chloride 10 mEq. Of note; I do not see her on diuretic, so that should raise a little flag. Of note; she is also on Nexium and Protonix for some reason. She is on Colesevelam 625 mg, Xarelto 20 mg, Fluticasone, Vancomycin currently dosage is 125 mg b.i.d. for seven days, then she goes down to one daily for seven days and then we will continue to taper. ALLERGIES: I believe Penicillin, aspirin and Atorvastatin. FAMILY HISTORY: Father of alcoholic liver disease. Mother had breast cancer. Sister had pulmonary embolus and COPD. REVIEW OF SYSTEMS: GENERAL: She feels tired. She is chronically cold, wearing a hat and gloves in the ER. HEENT: She wears dentures. CARDIOPULMONARY: Negative. She does have history of PE; currently asymptomatic. No cardiopulmonary symptoms. GI: Only rectal bleeding bright red. : Negative. MUSCULOSKELETAL: Chronic back, neck and knee pain. She walks with a cane and walker. She wears a brace on her left foot. VASCULAR: She has some venous insufficiency. HEMATOLOGIC: CBC is stable. PSYCHIATRIC: Negative. 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 PHYSICAL EXAMINATION: VITAL SIGNS: Blood pressure initially was elevated over 200 systolic and a repeat is 186/88, pulse 84, pulse oximetry 25, respirations 17. GENERAL: Elderly female, looks her stated age. HEENT: Noteworthy for acne rosacea. She wears dentures. No JVD. Thyroid not enlarged. HEART: Rate regular with maybe a very early systolic murmur. CHEST: Clear. ABDOMEN: Soft, nontender, obese. EXTREMITIES: Warm peripherally. She does have trace ankle edema and superficial venous varicosities. She has a scar over the right knee. RECTAL: There was no stool in the rectal vault. IMPRESSION/PLAN: 1. Lower GI bleed: Currently hemodynamically stable. Hematocrit is 40. Will observe. She will have I.V. fluids. 2. Hypertension: Will resume her beta-aileen this evening. Given the coexistent GI bleeding, will not treat her blood pressure aggressively tonight. 3. History of previous GI bleeds: See discussion above. She has had two colonoscopies as noted above; the most recent in 2019, does have known diverticular disease and history of polyps. 4. C. diff: Chronic, she has had stool transplant, currently on Vancomycin taper. 5. DJD with chronic pain issues. 6. Isolated serum calcium elevation: I am going to order a PTH intact. 7. History of pulmonary embolus: Xarelto on hold. DARCIE 8. Presumed GERD: She is on PPIs, again she is on two of them, I am not sure why, probably an oversight. 9. Hyperlipidemia: She does take a statin. MTDD
[2020-05-03] MEDS: LR 1,000 ML IV SCH ×3 (00:45→22:24)
[2020-05-03] MEDS: PERCOCET 5MG/325MG TAB PO PRN ×3 (02:55→21:39)
[2020-05-03 05:13] VITALS: BP 141/85
[2020-05-03 07:11] LABS: HEMOGLOBIN 11.7 g/dl (12.0-15.5); MEAN CORPUSCULAR HGB CONC 31.6 g/dl (32.0-36.5); MEAN CORPUSCULAR VOLUME 97.9 fl (80.0-96.0); PLATELET COUNT, AUTOMATED 241 10^3/uL (150-450); RED BLOOD COUNT 3.78 10^6/uL (4.00-5.40); WHITE BLOOD COUNT 7.8 10^3/uL (4.0-10.0)
[2020-05-03 07:44] LABS: BLOOD UREA NITROGEN 17 MG/DL (7-18); CARBON DIOXIDE LEVEL 27 MEQ/L (21-32); CHLORIDE LEVEL 104 MEQ/L (98-107); CREATININE FOR GFR 0.74 MG/DL (0.55-1.30); GLOMERULAR FILTRATION RATE > 60.0 (>32); GLUCOSE, FASTING 105 MG/DL (70-100); POTASSIUM SERUM 4.1 MEQ/L (3.5-5.1); SODIUM LEVEL 140 MEQ/L (136-145)
[2020-05-03] MEDS ORDERED: GABAPENTIN 400MG CAP PO SCH (09:00)
[2020-05-03] MEDS ORDERED: ROSUVASTATIN 10 MG TAB (CRESTOR) PO SCH (09:00)
[2020-05-03] MEDS ORDERED: PARoxetine 20MG TABLET PO SCH (09:00)
[2020-05-03] MEDS ORDERED: bisoproloL fumarate 10 MG TAB PO SCH (09:00)
[2020-05-03] MEDS: VANCOMYCIN ORAL SOL 250MG/5ML ORAL SYRINGE PO SCH ×2 (09:02→21:38)
[2020-05-03] MEDS: PARoxetine 20MG TABLET PO SCH (09:04)
[2020-05-03] MEDS: ROSUVASTATIN 10 MG TAB (CRESTOR) PO SCH (09:04)
[2020-05-03] MEDS: GABAPENTIN 400MG CAP PO SCH ×3 (09:04→21:38)
[2020-05-03] MEDS: bisoproloL fumarate 10 MG TAB PO SCH (09:05)
--- NOTE | 2020-05-03 11:04 | IPNPDOC ---
Text Note Date of Service The patient was seen on 05/03/20. NOTE Subjective: Patient seen and examined at bedside. No acute overnight events reported. Patient has no new medical complaints this morning. Objective: General: NAD, lying comfortably in bed HEENT: NC/AT, EOMI Lungs: CTA B/L Heart: +S1S2, RRR Abd: soft, NT, +BS Ext: no edema A/P: 84 female presents for rectal bleeding, with BRBPR with last several bowel movements. 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
[2020-05-03 14:00] VITALS: BP 130/60
[2020-05-03 19:56] VITALS: BP 179/87
[2020-05-04 06:00] VITALS: BP 176/83
[2020-05-04 07:12] LABS: BLOOD UREA NITROGEN 11 MG/DL (7-18); CALCIUM LEVEL 9.7 MG/DL (8.8-10.2); CARBON DIOXIDE LEVEL 27 MEQ/L (21-32); CHLORIDE LEVEL 105 MEQ/L (98-107); CREATININE FOR GFR 0.62 MG/DL (0.55-1.30); GLOMERULAR FILTRATION RATE > 60.0 (>32); GLUCOSE, FASTING 103 MG/DL (70-100); POTASSIUM SERUM 3.8 MEQ/L (3.5-5.1); SODIUM LEVEL 139 MEQ/L (136-145)
[2020-05-04 07:16] LABS: HEMATOCRIT 38.1 % (36.0-47.0); HEMOGLOBIN 11.8 g/dl (12.0-15.5); MEAN CORPUSCULAR HEMOGLOBIN 31.1 pg (27.0-33.0); MEAN CORPUSCULAR VOLUME 100.3 fl (80.0-96.0); WHITE BLOOD COUNT 5.9 10^3/uL (4.0-10.0)
[2020-05-04 07:18] LABS: PLATELET COUNT, AUTOMATED 127 10^3/uL (150-450)
[2020-05-04] MEDS: GABAPENTIN 400MG CAP PO SCH ×3 (07:53→21:10)
[2020-05-04] MEDS: VANCOMYCIN ORAL SOL 250MG/5ML ORAL SYRINGE PO SCH ×2 (07:53→21:10)
[2020-05-04] MEDS: bisoproloL fumarate 10 MG TAB PO SCH (07:54)
[2020-05-04] MEDS: PARoxetine 20MG TABLET PO SCH (07:54)
[2020-05-04] MEDS: ROSUVASTATIN 10 MG TAB (CRESTOR) PO SCH (07:54)
--- NOTE | 2020-05-04 11:29 | IPNPDOC ---
Text Note Date of Service The patient was seen on 05/04/20. NOTE Subjective: Patient seen and examined at bedside. No acute overnight events reported. Patient has no new medical complaints this morning. Objective: General: NAD, lying comfortably in bed HEENT: NC/AT, EOMI, edentulous Lungs: CTA B/L Heart: +S1S2, RRR Abd: soft, NT, +BS Ext: no edema A/P: 84 female presents for rectal bleeding, with BRBPR with last several bowel movements. 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
[2020-05-04 14:00] VITALS: BP 159/76
[2020-05-04] MEDS: PERCOCET 5MG/325MG TAB PO PRN (21:10)
[2020-05-04 22:00] VITALS: BP 160/75
[2020-05-05 06:00] VITALS: BP 146/83
[2020-05-05 08:13] LABS: HEMATOCRIT 37.9 % (36.0-47.0); HEMOGLOBIN 11.8 g/dl (12.0-15.5); MEAN CORPUSCULAR HEMOGLOBIN 30.3 pg (27.0-33.0); MEAN CORPUSCULAR HGB CONC 31.1 g/dl (32.0-36.5); MEAN CORPUSCULAR VOLUME 97.2 fl (80.0-96.0); PLATELET COUNT, AUTOMATED 239 10^3/uL (150-450); WHITE BLOOD COUNT 7.5 10^3/uL (4.0-10.0)
[2020-05-05 08:39] VITALS: BP 146/83
[2020-05-05] MEDS: VANCOMYCIN ORAL SOL 250MG/5ML ORAL SYRINGE PO SCH (08:39)
[2020-05-05] MEDS: PARoxetine 20MG TABLET PO SCH (08:39)
[2020-05-05] MEDS: GABAPENTIN 400MG CAP PO SCH (08:39)
[2020-05-05] MEDS: ROSUVASTATIN 10 MG TAB (CRESTOR) PO SCH (08:39)
[2020-05-05] MEDS: bisoproloL fumarate 10 MG TAB PO SCH (08:39)
[2020-05-05 08:41] LABS: BLOOD UREA NITROGEN 14 MG/DL (7-18); CALCIUM LEVEL 10.1 MG/DL (8.8-10.2); CARBON DIOXIDE LEVEL 25 MEQ/L (21-32); CHLORIDE LEVEL 106 MEQ/L (98-107); CREATININE FOR GFR 0.76 MG/DL (0.55-1.30); GLOMERULAR FILTRATION RATE > 60.0 (>32); GLUCOSE, FASTING 105 MG/DL (70-100); POTASSIUM SERUM 3.6 MEQ/L (3.5-5.1); SODIUM LEVEL 141 MEQ/L (136-145)
--- NOTE | 2020-05-05 16:19 | DS.PDOC ---
Discharge Summary General Date of Admission May 02, 2020 at 22:45 Date of Discharge 05/05/20 Discharge Summary PROCEDURES PERFORMED DURING STAY: [None]. ADMITTING DIAGNOSES: # GI bleed COMPLICATIONS/CHIEF COMPLAINT: Gi Bleeding. HPI/Hospital Course: 84-year-old female with past medical history of chronic C. difficile status post stool transplant on Vanco taper, HTN, PE on Xarelto, HLD presents for one day history of bright red blood per rectum. She was admitted for further evaluation and treatment. Her hemoglobin remained stable during her hospital stay. She was initially on a clear liquid diet. Her case was discussed with gastroenterology. Her Xarelto was held. She had no further episodes of bright red blood per rectum. Her diet was advanced and tolerated. On further discussion with GI was recommended for discharge home with outpatient follow-up, possible stay was otherwise unremarkable. DISCHARGE MEDICATIONS: Please see below. ALLERGIES: Please see below. PHYSICAL EXAMINATION ON DISCHARGE: VITAL SIGNS: Please see below. General: NAD, lying comfortably in bed HEENT: NC/AT, EOMI, edentulous Lungs: CTA B/L Heart: +S1S2, RRR Abd: soft, NT, +BS Ext: no edema LABORATORY DATA: Please see below. ACTIVITY: [As tolerated]. DISPOSITION: 01 Home, Self-Care. DISCHARGE INSTRUCTIONS: 1. PCP in 3-5 days 2. GI as scheduled DISCHARGE CONDITION: [Stable]. TIME SPENT ON DISCHARGE: 35 minutes. Vital Signs/I&Os Vital Signs Date Time Temp Pulse Resp B/P (MAP) Pulse Ox O2 Delivery O2 Flow Rate FiO2 05/05/20 08:39 82 146/83 05/05/20 06:00 98.1 17 95 Room Air I&O- Last 24 Hours up to 6 AM 05/05/20 06:00 Intake Total 1530 ml Output Total 300 ml Balance 1230 ml Laboratory Data Labs 24H Laboratory Tests 2 05/05/20 07:54: Nucleated Red Blood Cells % (auto) 0.0, Anion Gap 10, Glomerular Filtration Rate > 60.0, Calcium Level 10.1 CBC/BMP Laboratory Tests 05/05/20 07:54 Discharge Medications Scheduled Bisoprolol Fumarate (Bisoprolol Fumarate) 10 Mg Tablet, 10 MG PO DAILY, ( Reported) C,E,Zinc,Copper 24/Om3/Lut/[place] (Ocuvite Adult 50 Plus Softgel) 1 Each Capsule, 1 CAP PO DAILY, (Reported) Cholecalciferol (Vitamin D3) (Vitamin D3) 1,000 Unit Tablet, 2,000 UNITS PO DAILY, (Reported) Colesevelam HCl (Colesevelam HCl) 625 Mg Tablet, 625 MG PO BIDWM, (Reported) Esomeprazole Magnesium (Nexium) 40 Mg Suspdr.pkt, 40 MG PO BID, (Reported) Gabapentin (Gabapentin) 400 Mg Capsule, 400 MG PO TID, (Reported) TAKES AT 0900, 1600, AND 2100 Multivitamin with Minerals (Hair, Skin and Nails) 1 Each Tablet, 1 TAB PO DAILY, (Reported) Pantoprazole Sodium (Pantoprazole Sodium) 20 Mg Tablet.dr, 40 MG PO DAILY, (Reported) Paroxetine HCl (Paroxetine HCl) 20 Mg Tablet, 20 MG PO DAILY, (Reported) Potassium Chloride (Potassium Chloride) 10 Meq Tab.er.prt, 10 MEQ PO DAILY, (Reported) Rosuvastatin Calcium (Crestor) 40 Mg Tablet, 40 MG PO DAILY, (Reported) Vancomycin Hcl (Vancomycin HCl) 125 Mg Capsule, 125 MG PO BID, (Reported) diphenhydrAMINE HCl (diphenhydrAMINE HCl) 25 Mg Tablet, 50 MG PO QHS, (Reported) Scheduled PRN Acetaminophen/Caffeine (Tension Headache Caplet) 1 Each Tablet, 1 TAB PO DAILY PRN for HEADACHE, (Reported) Fluticasone Propionate (Flonase Allergy Relief) 9.9 Ml [place].susp, 2 SPRAY NARES DAILY PRN for CONGESTION, (Reported) Hydrocodone/Acetaminophen (Hydrocodone-Acetamin 10-325 mg) 1 Each Tablet, 1 TAB PO Q6H PRN for PAIN, (Reported) Allergies Coded Allergies: Penicillins (Verified Allergy, Mild, rash, 08/26/18) aspirin (Verified Allergy, Mild, rash, 08/26/18) atorvastatin (Verified Allergy, Unknown, 08/26/18) ARGENIS HOLMAN MD May 05, 2020 16:19
== END 2020-05-05 15:30 | disposition home or self-care (01) | DRG 378 ==
LOC: M ED 16:58 → M ED INP 22:45 → M ED 23:30 → M MS5PR 05-03 00:15
PROVIDERS: ATTEND Internal Medicine
DX: K92.2 Gastrointestinal hemorrhage, unspecified (principal); A04.71 Enterocolitis due to Clostridium difficile, recurrent; I10 Essential (primary) hypertension; M54.9 Dorsalgia, unspecified; K21.9 Gastro-esophageal reflux disease without esophagitis; E78.5 Hyperlipidemia, unspecified; Z89.022 Acquired absence of left finger(s); Z90.49 Acquired absence of other specified parts of digestive tract; Z79.891 Long term (current) use of opiate analgesic; Z88.0 Allergy status to penicillin; Z79.01 Long term (current) use of anticoagulants; Z88.6 Allergy status to analgesic agent; Z88.8 Allergy status to other drugs, medicaments and biological substances; Z85.820 Personal history of malignant melanoma of skin; Z86.711 Personal history of pulmonary embolism

== ENCOUNTER → 2020-05-12 | Outpatient (CLI) | payer MEDICARE ==
[~2020-05-12] MED LIST changes: +HYDR-4517 PO; +NEXI40GR PO; +VANC125C3 PO
[2020-05-12 17:53] LABS: BASO % 0.4 % (0.0-1.0); EOS # 0.2 10^3/uL (0.0-0.5); EOS % 2.3 % (0.0-3.0); HEMATOCRIT 38.2 % (36.0-47.0); HEMOGLOBIN 11.7 g/dl (12.0-15.5); LYMPH # 2.1 10^3/uL (1.5-5.0); LYMPH % 27.5 % (24.0-44.0); MEAN CORPUSCULAR HEMOGLOBIN 31.2 pg (27.0-33.0); MEAN CORPUSCULAR HGB CONC 30.6 g/dl (32.0-36.5); MEAN CORPUSCULAR VOLUME 101.9 fl (80.0-96.0); MONO # 0.5 10^3/uL (0.0-0.8); MONO % 6.7 % (0.0-8.0); NEUTROPHILS # 4.7 10^3/uL (1.5-8.5); NEUTROPHILS % 62.7 % (36.0-66.0); PLATELET COUNT, AUTOMATED 239 10^3/uL (150-450); RED BLOOD COUNT 3.75 10^6/uL (4.00-5.40); WHITE BLOOD COUNT 7.5 10^3/uL (4.0-10.0)
[2020-05-12 18:02] LABS: INR 0.97; PROTHROMBIN TIME 13.1 SECONDS (12.5-14.3)
[2020-05-12 18:03] LABS: PARTIAL THROMBOPLASTIN TIME 33.5 SECONDS (24.2-38.5)
[2020-05-12 18:25] LABS: ALBUMIN 3.9 GM/DL (3.2-5.2); ALT/SGPT 25 U/L (12-78); BILIRUBIN,TOTAL 0.4 MG/DL (0.2-1.0); BLOOD UREA NITROGEN 16 MG/DL (7-18); CALCIUM LEVEL 10.4 MG/DL (8.8-10.2); CARBON DIOXIDE LEVEL 32 MEQ/L (21-32); CHLORIDE LEVEL 103 MEQ/L (98-107); CREATININE FOR GFR 0.76 MG/DL (0.55-1.30); FERRITIN 482 NG/ML (8-252); GLOMERULAR FILTRATION RATE > 60.0 (>32); GLUCOSE, FASTING 98 MG/DL (70-100); IRON (FE) 44 UG/DL (50-170); NT-PRO BNP 449 PG/ML (<450); PERCENT SATURATION 13.1 % (13.2-45.0); POTASSIUM SERUM 4.8 MEQ/L (3.5-5.1); SODIUM LEVEL 139 MEQ/L (136-145); TOTAL IRON BINDING CAPACITY 335 UG/DL (250-450); TOTAL PROTEIN 6.7 GM/DL (6.4-8.2)
[2020-05-12 18:32] LABS: VITAMIN B12 LEVEL 1094 PG/ML (247-911)
[2020-05-12 19:18] LABS: ERYTHROCYTE SEDIMENTATION RATE 17 mm/hr (0-30)
== END ==
LOC: M LAB 17:03
PROVIDERS: ATTEND Family Medicine
DX: A04.71 Enterocolitis due to Clostridium difficile, recurrent (principal); I50.30 Unspecified diastolic (congestive) heart failure

== ENCOUNTER → 2020-06-17 | Outpatient (CLI) | payer MEDICARE ==
--- NOTE | 2020-06-17 12:00 | REP ---
INDICATION: PAIN IN RIGHT HIP injury June 2019 in September 2019, pain COMPARISON: None. TECHNIQUE: Coronal T1, STIR through the pelvis, axial, coronal, sagittal T2 fat sat left hip. FINDINGS: There is no evidence of avascular necrosis of either hip femoral head. No occult fracture is seen of the visualized osseous structures. There is mild left sacroiliac joint arthritic change with mild subchondral marrow edema on both sides of the joint.. There is tear of the right iliopsoas tendon with retraction superiorly. Mild fluid and increased signal is seen along the greater trochanters bilaterally compatible with mild bilateral greater trochanteric tendonobursitis. There is evidence of prior fusion of lower lumbar spine. Sigmoid diverticulosis is noted.. There is a tear of the posterior labrum. Other portions of the labrum appear intact. There is no joint effusion. IMPRESSION: Complete tear distal right iliopsoas tendon, with avulsion off of the lesser trochanter, with retraction superiorly. Tear posterior labrum. Mild bilateral greater trochanteric tendonobursitis. <Electronically signed by Franki Best > 06/17/20 [id number]
== END ==
LOC: M RAD 09:11
PROVIDERS: ATTEND Orthopaedic Surgery
DX: S76.011A Strain of muscle, fascia and tendon of right hip, initial encounter (principal); X58.XXXA Exposure to other specified factors, initial encounter; Y92.9 Unspecified place or not applicable

== ENCOUNTER → 2020-06-20 | Outpatient (CLI) | payer MEDICARE ==
--- NOTE | 2020-06-20 11:21 | REPPI ---
INDICATION: R05 COUGH COMPARISON: 02/23/2019. TECHNIQUE: PA/Lateral FINDINGS: Lungs: Clear, no infiltrate. Heart: Normal in size. Mediastinum: Mediastinal silhouette unremarkable. There is calcification of the thoracic aorta. Pleural angles: Unremarkable.. Bones and soft tissues: There are degenerative changes of the spine without compression deformity.. Multiple metallic clips are seen in the left axilla. A metallic plate and screws are seen in the lower cervical spine. IMPRESSION: No acute pulmonary disease. <Electronically signed by Franki Best > 06/20/20 111
== END ==
LOC: M PLAIMG 10:41
PROVIDERS: ATTEND Physician Assistant
DX: R05 Cough (principal)

== ENCOUNTER 2020-07-26 14:23 | Inpatient (IN) | payer MEDICARE ==
[~2020-07-26] VITALS: Ht 152.4 cm; Wt 74.3 kg
[2020-07-26] MEDS ORDERED: PEPC40TA12 PO (14:41)
[2020-07-26] MEDS ORDERED: CYCL5TAB PO (14:41)
[2020-07-26] MEDS ORDERED: FERR325T3 PO (14:41)
[2020-07-26] MEDS ORDERED: NS 500 ML IV ONE (15:00)
--- NOTE | 2020-07-26 15:27 | REP ---
INDICATION: diarhrea COMPARISON: 06/20/2020 TECHNIQUE: Portable AP view of the chest FINDINGS: Examination is limited by underpenetration, poor inspiratory effort and portable technique which accentuate the pulmonary vasculature. Mediastinum and cardiac silhouette are stable and within normal limits. No focal consolidation, effusion, or pneumothorax. Left axillary node dissection again noted. IMPRESSION: No focal consolidation or effusion. <Electronically signed by Izaiah Garrido > 07/26/20 [id number]
[2020-07-26 15:49] LABS: BASO % 0.3 % (0.0-1.0); EOS % 0.3 % (0.0-3.0); HEMATOCRIT 40.6 % (36.0-47.0); HEMOGLOBIN 12.6 g/dl (12.0-15.5); LYMPH # 1.7 10^3/uL (1.5-5.0); MEAN CORPUSCULAR HEMOGLOBIN 30.2 pg (27.0-33.0); MEAN CORPUSCULAR VOLUME 97.4 fl (80.0-96.0); MONO % 9.2 % (2.0-8.0); NEUTROPHILS # 8.4 10^3/uL (1.5-8.5); NEUTROPHILS % 74.7 % (36.0-66.0); PLATELET COUNT, AUTOMATED 344 10^3/uL (150-450); RED BLOOD COUNT 4.17 10^6/uL (4.00-5.40); WHITE BLOOD COUNT 11.2 10^3/uL (4.0-10.0)
[2020-07-26 16:14] LABS: ALBUMIN 4.1 GM/DL (3.2-5.2); BILIRUBIN,DIRECT 0.2 MG/DL (0.0-0.2); BILIRUBIN,TOTAL 0.4 MG/DL (0.2-1.0); CK-MB VALUE MASS 7.2 NG/ML (<3.6); MAGNESIUM LEVEL 1.8 MG/DL (1.8-2.4); MB/CK RELATIVE INDEX 1.55 (< OR =4); TOTAL PROTEIN 7.4 GM/DL (6.4-8.2); TROPONIN I 0.03 NG/ML (< 0.10)
[2020-07-26] MEDS ORDERED: LIDOCAINE 2% 5ML JELLY UROJET TOP ONE (16:45)
[2020-07-26] MEDS ORDERED: FAMO1TAB11 PO (16:49)
[2020-07-26] MEDS ORDERED: META1POW PO (16:49)
[2020-07-26] MEDS ORDERED: NEXI40CA PO (16:49)
[2020-07-26] MEDS ORDERED: ISOVUE-370 76% 100ML VIAL As Ordered ONE (17:07)
--- NOTE | 2020-07-26 17:30 | REPVR ---
PROCEDURE INFORMATION: Exam: CT Abdomen And Pelvis With Contrast Exam date and time: 07/26/2020 5:10 PM Age: 84 years old Clinical indication: Abdominal pain; Generalized; Additional info: Abdl pain, v, d, HX c diff TECHNIQUE: Imaging protocol: Computed tomography of the abdomen and pelvis with contrast. Radiation optimization: All CT scans at this facility use at least one of these dose optimization techniques: automated exposure control; mA and/or kV adjustment per patient size (includes targeted exams where dose is matched to clinical indication); or iterative reconstruction. Contrast material: ISOVUE 370; Contrast volume: 100 ml; Contrast route: INTRAVENOUS (IV); COMPARISON: CT ABD PELVIS WITH CONTRAST 04/03/2019 8:57 AM FINDINGS: Lungs: No suspicious mass or airspace process in the visualized lung bases. Liver: Liver is unremarkable aside from a central hepatic cyst measuring 12 mm with simple fluid density. Gallbladder and bile ducts: Gallbladder is surgically absent. Prominent central bile ducts, likely postcholecystectomy capacitance effect. Pancreas: Pancreas appears normal. No focal mass or peripancreatic inflammation. Spleen: Spleen appears homogeneous without focal mass. Adrenal glands: Adrenal glands are normal in appearance. Kidneys and ureters: Kidneys are unremarkable aside from a simple fluid density benign 2 cm right midpole cyst. Stomach and bowel: No evidence of small bowel obstruction. Multiple fluid-filled loops of nondilated bowel with enhancing mucosa are present. Diverticular changes are present within the colon without inflammation. Appendix: Normal caliber appendix is identified, with no adjacent inflammation. Intraperitoneal space: No pneumoperitoneum. Vasculature: Thoracic aorta is ectatic and atherosclerotic. Atherosclerotic change present in the abdominal aorta, without aneurysm. Main portal and splenic veins enhance normally. Lymph nodes: No enlarged lymph nodes. Urinary bladder: Urinary bladder appears normal. Reproductive: Uterus is surgically absent. Bones/joints: Postsurgical changes of the lumbar spine are present with unchanged pattern. Left SI joint degenerative osteoarthrosis, also without change. Soft tissues: Unremarkable. IMPRESSION: Pattern of small bowel and proximal colon suggests inflammatory or infectious enteritis without obstruction. The pattern is not typical of Clostridium difficile colitis, particularly with the involvement of small bowel and only minor involvement of the colon. Electronically signed by: Saeed Shankar On 07/26/2020 17:30:51 PM
[2020-07-26 17:36] LABS: RSV AMPLIFICATION NEGATIVE (NEGATIVE)
--- NOTE | 2020-07-26 19:09 | HPEPDOC ---
[facility] Medical History & Physical Date of Admission July 26, 2020 Date of Service: July 26, 2020 Primary Care Physician: Jorge Fischer M.D. Attending Physician: SULAIMAN DUONG DO History and Physical CHIEF COMPLAINT: Diarrhea for 3 days HISTORY OF PRESENT ILLNESS: The patient has a history of multiple episodes of C. difficile colitis, and she has been struggling with and diarrhea for quite some time. Apparently she finished her course of prolonged vancomycin taper a few weeks ago, and ever since starting PO iron supplementation she had not been having diarrhea. She was seen and evaluated as an outpatient by Dr. Taylor a couple weeks ago and since she was asymptomatic at that time he did not initiate any specific therapy. Since about 3 days ago she has had profuse watery diarrhea again. It is black in color, but the patient and her daughter report that the black is more of a black "sediment", rather than the stool actually being black, and therefore it was suspected that this is likely from her iron supplementation, and the fact that she is not anemic at this time also supports this hypothesis. The patient has been unable to tolerate anything orally for almost 3 days now, she will either vomit it back up, or it will pass right through her his diarrhea. She does have nausea, mild abdominal discomfort, but not pain. They have not noted any fevers at home, nor she febrile here in the emergency department. She only has a very mildly elevated WBC at 11.2, and the remainder of her labs are fairly mild at this point. She does have an elevated BUN/creatinine ratio indicating prerenal azotemia likely secondary to dehydration, and she does also have hypokalemia which is also likely to her diarrhea. Her CT scan while in the ED also indicates small bowel enteritis, and specifically does not look like C. difficile colitis, since the colon is really not involved. I called and discussed the case with Dr. Taylor, and he agrees that at this time we will hold off on empiric antibiotics, and we will wait until the results of the GI panel before giving any targeted therapy. It is our suspicion that she has a viral enteritis. Even if her panel comes back positive for C. difficile, it would most likely be simply chronic in nature, and in the absence of fever, leukocytosis, pain, etc., would still be hesitant in treating that. No official consult is made of this time, if it is felt that this is secondary to C. difficile colitis and treatment as indicated, perhaps a consult to either GI or infectious disease would be appropriate. CODE STATUS: Full code PAST MEDICAL HISTORY: History of multiple GI bleeds History of C. difficile colitis History of pulmonary embolism Hypertension Chronic back pain Vitamin D deficiency Hyperlipidemia Iron deficiency anemia, perhaps also history of blood loss anemia due to GI bleeds Insomnia Osteoporosis Obstructive sleep apnea Dementia, mild Impaired fasting glucose Depression PAST SURGICAL HISTORY: Right knee surgery Neck surgery Melanoma removed from her back Hysterectomy Left ring and pinky finger amputation Tonsillectomy Sinus surgery D&C Bladder suspension Cholecystectomy Carpal tunnel release Back surgery SOCIAL HISTORY: Does not smoke, drink alcohol, or use any illicit drugs. FAMILY HISTORY: Father of alcoholic liver disease. Mother of breast cancer. Sr. had pulmonary embolus and COPD REVIEW OF SYSTEMS: Constitutional: Patient denies fevers, chills, night sweats, recent weight gain/loss. HEENT: Patient denies blurred or double vision, transient visual disturbances, postnasal drip, epistaxis, sore throat, difficulty chewing or swallowing food. Cardiovascular: Patient denies chest discomfort/pain, palpitations, exertional dyspnea, orthopnea, claudication. Respiratory: Patient denies dyspnea, wheezing, cough, hemoptysis, sputum production. Gastrointestinal: Patient admits to nausea, vomiting, diarrhea, mild abdominal pain. Although she has some black stools, both the patient and her daughter do not believe that she has had any melena, hematochezia, hematemesis. PHYSICAL EXAMINATION: General: Awake, alert, oriented 3. She does not appear to be in acute distress at this time. HEENT: Head normocephalic atraumatic, conjunctiva are pink, sclera are nonicteric, buccal mucosa is somewhat dry. Hearing is grossly intact to conversation. Respiratory: Clear to auscultation bilaterally with no wheezes, rales, or rhonchi. Cardiovascular: Regular rate and rhythm, with no rubs, gallops, or murmur. Abdomen: Soft, only minimally tender in the periumbilical region, nondistended, no hepatosplenomegaly appreciated. Bowel sounds present. Extremities: 2+ pulses in the radial and dorsalis pedis bilaterally. No evidence of clubbing or cyanosis. IMAGING: CT of the abdomen and pelvis with IV contrast IMPRESSION: Pattern of small bowel and proximal colon suggests inflammatory or infectious enteritis without obstruction. The pattern is not typical of Clostridium difficile colitis, particularly with the involvement of small bowel and only minor involvement of the colon. ASSESSMENT/PLAN: Small bowel enteritis History of C. difficile colitis (although does not appear to be colitis at this time) Prerenal azotemia Dehydration -Admit to [facility], observation status. -At this point we will avoid empiric antibiotics as mentioned above. Likely viral, and even if she is C. difficile positive, would caution against hasty administration of antibiotics, but would recommend consult to either GI or infectious disease. -Gentle rehydration with lactated Ringer's, and will also allow her to eat. - Continue with home meds for GI prophylaxis including famotidine, WelChol, and Metamucil fiber supplementation. PPI was apparently discontinued outpatient by GI due to concerns for increased risk for C. difficile colitis. Hypokalemia -Will continue her home potassium supplementation 10 mEq daily, and we will give additional supplementation on an as-needed basis, will repeat basic metabolic panel daily. Hypertension - Continue home dose of bisoprolol Chronic back pain -Continue home dose of hydrocodone, gabapentin, cyclobenzaprine Hyperlipidemia -Continue home dose of rosuvastatin Insomnia -Continue home dose of Benadryl daily at bedtime as needed Iron deficiency anemia -Continue home dose of iron supplementation Vitamin D deficiency -Continue home dose of vitamin D supplementation Depression -Continue home dose of paroxetine DVD prophylaxis -Lovenox Vital Signs Vital Signs Date Time Temp Pulse Resp B/P (MAP) Pulse Ox O2 Delivery O2 Flow Rate FiO2 07/26/20 18:30 169/84 (112) 07/26/20 18:23 76 92 07/26/20 14:23 97.1 18 Room Air Laboratory Data Labs 24H Laboratory Tests 2 07/26/20 15:34: Immature Granulocyte % (Auto) 0.5, Neutrophils (%) (Auto) 74.7H, Lymphocytes (%) (Auto) 15.0L, Monocytes (%) (Auto) 9.2H, Eosinophils (%) (Auto) 0.3, Basophils (%) (Auto) 0.3, Neutrophils # (Auto) 8.4, Lymphocytes # (Auto) 1.7, Monocytes # (Auto) 1.0H, Eosinophils # (Auto) 0.0, Basophils # (Auto) 0.0, Nucleated Red Blood Cells % (auto) 0.0, Lactic Acid Level 1.9, Magnesium Level 1.8, Total Bilirubin 0.4, Direct Bilirubin 0.2, Aspartate Amino Transf (AST/SGOT) 36, Alanine Aminotransferase (ALT/SGPT) 22, Alkaline Phosphatase 62, Total Creatine Kinase 464H, Creatine Kinase MB 7.2H, Creatine Kinase MB Relative Index 1.55, Troponin I 0.03, Total Protein 7.4, Albumin 4.1, Albumin/Globulin Ratio 1.2, Amylase Level 30, Lipase 88 07/26/20 16:45: Coronavirus (COVID-19)(PCR) NEGATIVE, Influenza Type A (RT-PCR) NEGATIVE, Influenza Type B (RT-PCR) NEGATIVE, Respiratory Syncytial Virus (PCR) NEGATIVE 07/26/20 17:24: Urine Color SHELIA, Urine Appearance HAZY, Urine pH 5.0, Urine Specific [place] 1.033, Urine Protein 2+H, Urine Glucose (UA) NEGATIVE, Urine Ketones NEGATIVE, Urine Blood NEGATIVE, Urine Nitrite NEGATIVE, Urine Bilirubin NEGATIVE, Urine Urobilinogen 0.2, Urine Leukocyte Esterase TRACEH, Urine WBC (Auto) 10H, Urine RBC (Auto) 6H, Urine Hyaline Casts (Auto) 62, Urine Bacteria (Auto) 1+H, Urine Squamous Epithelial Cells 8, Urine Mucus (Auto) SMALL, Urine Sperm (Auto) CBC/BMP Laboratory Tests 07/26/20 15:34 Microbiology Microbiology 07/26/20 Gastrointestinal Tract Panel (PCR), Received Pending 07/26/20 Urine Culture, Received Pending 07/26/20 Blood Culture, Received Pending 07/26/20 Blood Culture, Received Pending Home Medications Scheduled Bisoprolol Fumarate (Bisoprolol Fumarate) 10 Mg Tablet, 10 MG PO DAILY C,E,Zinc,Copper 24/Om3/Lut/Eloy (Ocuvite Adult 50 Plus Softgel) 1 Each Capsule, 1 CAP PO DAILY Cholecalciferol (Vitamin D3) (Vitamin D3) 1,000 Unit Tablet, 2,000 UNITS PO DAILY Colesevelam HCl (Colesevelam HCl) 625 Mg Tablet, 625 MG PO BIDWM Cyclobenzaprine HCl (Cyclobenzaprine HCl) 5 Mg Tablet, 5 MG PO QHS Esomeprazole Magnesium (Nexium) 40 Mg Capsule.dr, 40 MG PO BID ON HOLD PER WATER ANALYST Famotidine (Famotidine) 20 Mg Tablet, 20 MG PO DAILY Ferrous Sulfate (Ferrous Sulfate) 325 Mg Tablet.dr, 325 MG PO Q2D Gabapentin (Gabapentin) 400 Mg Capsule, 400 MG PO BID TAKES AM/1600 Hydrocodone/Acetaminophen (Hydrocodone-Acetamin 10-325 mg) 1 Each Tablet, 2 TAB PO BID Multivitamin with Minerals (Hair, Skin and Nails) 1 Each Tablet, 1 TAB PO DAILY Paroxetine HCl (Paroxetine HCl) 20 Mg Tablet, 20 MG PO DAILY Potassium Chloride (Potassium Chloride) 10 Meq Tab.er.prt, 10 MEQ PO DAILY Psyllium Husk/Aspartame (Metamucil Fiber Singles Packet) 3.4 Gm Powd.pack, 1 PKT PO DAILY Rosuvastatin Calcium (Crestor) 40 Mg Tablet, 40 MG PO DAILY diphenhydrAMINE HCl (diphenhydrAMINE HCl) 25 Mg Tablet, 50 MG PO QHS Scheduled PRN Acetaminophen/Caffeine (Tension Headache Caplet) 1 Each Tablet, 1 TAB PO DAILY PRN for HEADACHE Allergies Coded Allergies: Penicillins (Verified Allergy, Mild, rash, 08/26/18) aspirin (Verified Allergy, Mild, rash, 08/26/18) atorvastatin (Verified Allergy, Unknown, 08/26/18) rivaroxaban (Verified Adverse Reaction, Unknown, GI BLEED, 07/26/20) A-FIB/CHADSVASC A-FIB History Current/History of A-Fib/PAF?: No SULAIMAN DUONG DO July 26, 2020 19:08
--- NOTE | 2020-07-26 19:21 | ECGEPIP ---
[facility] - ED Test Date: 2020-07-26 Pat Name: WALDO ROMO Department: Room: - Gender: Female Backup Administrative Coordinator: ASHISH : [id number] Requested By: Kitty Cyr Order Number: [id number] Reading MD: Kitty Cyr Measurements Intervals [place] Rate: 74 P: 16 VT: 170 QRS: -9 QRSD: 88 T: 21 QT: 410 QTc: 455 Interpretive Statements Normal sinus rhythm Leftward axis Nonspecific ST T wave changes cw 02/13/[address] T wave changes Electronically Signed on 07-26-2020 19:20:40 EDT by Kitty Cyr
[2020-07-26 20:20] VITALS: BP 164/84
[2020-07-26] MEDS ORDERED: PANTOPRAZOLE 40MG TAB (PROTONIX) PO SCH (21:00)
[2020-07-26] MEDS: ENOXAPARIN 40MG/0.4ML SYRINGE (J1650 PER 10MG) SC SCH (22:09)
[2020-07-26] MEDS: GABAPENTIN 400MG CAP PO SCH (22:10)
[2020-07-26] MEDS: NORCO, ANEXSIA 5/325MG TABLET (HYDROcodone/ACETAMINOPHEN) PO SCH (22:10)
[2020-07-26] MEDS: CYCLOBENZAPRINE 5MG TABLET PO SCH (22:11)
[2020-07-26] MEDS: LR 1,000 ML IV SCH (22:15)
[2020-07-27] MEDS: RAMELTEON 8 MG TAB (ROZEREM) PO PRN ×2 (01:21→22:10)
[2020-07-27 05:55] LABS: HEMATOCRIT 36.9 % (36.0-47.0); HEMOGLOBIN 11.6 g/dl (12.0-15.5); MEAN CORPUSCULAR HEMOGLOBIN 30.9 pg (27.0-33.0); MEAN CORPUSCULAR HGB CONC 31.4 g/dl (32.0-36.5); MEAN CORPUSCULAR VOLUME 98.4 fl (80.0-96.0); PLATELET COUNT, AUTOMATED 294 10^3/uL (150-450); RED BLOOD COUNT 3.75 10^6/uL (4.00-5.40); WHITE BLOOD COUNT 9.5 10^3/uL (4.0-10.0)
[2020-07-27 06:00] VITALS: BP 125/66
[2020-07-27 06:41] LABS: BLOOD UREA NITROGEN 18 MG/DL (7-18); CALCIUM LEVEL 8.7 MG/DL (8.8-10.2); CARBON DIOXIDE LEVEL 24 MEQ/L (21-32); CHLORIDE LEVEL 107 MEQ/L (98-107); CREATININE FOR GFR 0.64 MG/DL (0.55-1.30); GLOMERULAR FILTRATION RATE > 60.0 (>32); GLUCOSE, FASTING 107 MG/DL (70-100); MAGNESIUM LEVEL 1.8 MG/DL (1.8-2.4); POTASSIUM SERUM 2.9 MEQ/L (3.5-5.1); SODIUM LEVEL 140 MEQ/L (136-145)
[2020-07-27] MEDS ORDERED: POTASSIUM CHLORIDE 10 MEQ SR TABLET PO ONE (08:00)
[2020-07-27] MEDS ORDERED: KCL 10MEQ/100ML SWI (KRUN) 10 MEQ in IV 1 EA IV SCH (08:00)
[2020-07-27] MEDS: OCUVITE 1 TAB PO SCH (08:31)
[2020-07-27] MEDS: LR 1,000 ML IV SCH ×2 (08:31→15:00)
[2020-07-27] MEDS: COLESEVELAM 625 MG TAB (WELCHOL) PO SCH ×2 (08:31→19:02)
[2020-07-27] MEDS: GABAPENTIN 400MG CAP PO SCH ×2 (08:31→22:10)
[2020-07-27] MEDS: FIDAXOMICIN 200 MG TAB (DIFICID) PO SCH ×2 (08:31→22:10)
[2020-07-27] MEDS: PARoxetine 20MG TABLET PO SCH (08:32)
[2020-07-27] MEDS: ROSUVASTATIN 10 MG TAB (CRESTOR) PO SCH (08:32)
[2020-07-27] MEDS: FERROUS SULFATE 325MG TAB PO SCH (08:32)
[2020-07-27] MEDS: FAMOTIDINE 20 MG TAB PO SCH (08:32)
[2020-07-27] MEDS: VITAMIN D 1,000 INTERNATIONAL UNITS TABLET PO SCH (08:32)
[2020-07-27] MEDS: NORCO, ANEXSIA 5/325MG TABLET (HYDROcodone/ACETAMINOPHEN) PO SCH ×2 (08:33→22:09)
[2020-07-27] MEDS: bisoproloL fumarate 10 MG TAB PO SCH (08:33)
[2020-07-27] MEDS: METAMUCIL (PSYLLIUM) PACKET PO SCH (08:34)
[2020-07-27] MEDS: POTASSIUM CHLORIDE 10 MEQ SR TABLET PO SCH (09:38)
--- NOTE | 2020-07-27 10:03 | IPNPDOC ---
Text Note Date of Service The patient was seen on 07/27/20. NOTE Subjective: Patient is an 84-year-old female with a PMHx of multiple episodes of C. diff colitis who presented to the emergency room with complaints of worsening diarrhea. Patient has completed her course of vancomycin prolonged taper a few weeks ago. Patient was admitted to the hospital service for further evaluation and treatment. GI panel had shown C. difficile colitis. Patient was seen and examined at the bedside. Patient was she continues to ex perience watery bowel movements. Has not experience any bowel movements this morning. Objective: Vitals (See below) General: Sitting up in bed, no acute distress, comfortable, Awake / Alert; Oriented to person / place HEENT: NC, AT CVS: +S1S2 Lungs: Fair air entry b/l, appreciable wheezing, rhonchi or rales Abdomen: Soft, ND, NT Extremities: - Edema, - Calf tenderness Imaging: CXR 07/26: No focal consolidation or effusion. CT abdomen / pelvis 07/26: Pattern of small bowel and proximal colon suggests inflammatory or infectious enteritis without obstruction. The pattern is not typical of Clostridium dif ficile colitis, particularly with the involvement of small bowel and only minor involvement of the colon. Assessment and plan: Diarrhea - possibly 2/2 C. diff colitis - Patient has had multiple episodes of diarrhea in the past; has recently completed vancomycin taper - Will continue to follow patient's clinical picture - Leukocytosis resolved - Imaging noted above - Will start for Fidaxomicin - Will consult ID tomorrow Hypokalemia - Will supplement via PO route Hypertension - BP well controlled - c/w bisoprolol Chronic back pain - c/w hydrocodone, gabapentin, cyclobenzaprine Hyperlipidemia - c/w rosuvastatin Insomnia - c/w Benadryl PRN Iron deficiency anemia - c/w Iron supplementation Vitamin D deficiency -Continue home dose of vitamin D supplementation Depression - c/w Paroxetine GERD - c/w Famotidine DVT prophylaxis - c/w Lovenox Disposition: - Awaiting clinical improvement Matthias BARAHONA, I+O Matthias BARAHONA I+O Laboratory Tests 07/26/20 15:34 07/27/20 05:31 Vital Signs Date Time Temp Pulse Resp B/P (MAP) Pulse Ox O2 Delivery O2 Flow Rate FiO2 07/27/20 09:39 18 07/27/20 08:33 87 124/66 07/27/20 06:00 98.6 96 07/26/20 22:10 Room Air l I&O- Last 24 Hours up to 6 AM 07/27/20 06:00 Intake Total 460 ml Output Total 250 ml Balance 210 ml NATHANIEL DE ANDA MD July 27, 2020 10:03
[2020-07-27 22:00] VITALS: BP 147/89
[2020-07-27] MEDS: ENOXAPARIN 40MG/0.4ML SYRINGE (J1650 PER 10MG) SC SCH (22:09)
[2020-07-27] MEDS: CYCLOBENZAPRINE 5MG TABLET PO SCH (22:10)
[2020-07-28] MEDS: diphenhydrAMINE 25MG CAP PO PRN ×2 (00:46→23:57)
[2020-07-28] MEDS: LR 1,000 ML IV SCH (05:29)
[2020-07-28 06:00] VITALS: BP 134/72
[2020-07-28 07:04] LABS: HEMATOCRIT 34.7 % (36.0-47.0); HEMOGLOBIN 10.7 g/dl (12.0-15.5); MEAN CORPUSCULAR HEMOGLOBIN 30.2 pg (27.0-33.0); MEAN CORPUSCULAR HGB CONC 30.8 g/dl (32.0-36.5); PLATELET COUNT, AUTOMATED 268 10^3/uL (150-450); RED BLOOD COUNT 3.54 10^6/uL (4.00-5.40); WHITE BLOOD COUNT 8.6 10^3/uL (4.0-10.0)
[2020-07-28 07:31] LABS: BLOOD UREA NITROGEN 12 MG/DL (7-18); CALCIUM LEVEL 9.8 MG/DL (8.8-10.2); CARBON DIOXIDE LEVEL 25 MEQ/L (21-32); CHLORIDE LEVEL 109 MEQ/L (98-107); CREATININE FOR GFR 0.46 MG/DL (0.55-1.30); GLOMERULAR FILTRATION RATE > 60.0 (>32); GLUCOSE, FASTING 111 MG/DL (70-100); MAGNESIUM LEVEL 1.7 MG/DL (1.8-2.4); POTASSIUM SERUM 3.6 MEQ/L (3.5-5.1); SODIUM LEVEL 141 MEQ/L (136-145)
[2020-07-28] MEDS ORDERED: MAG SULF 1GM/100ML (MAG RUN) 1 GM in IV 1 EA IV ONE (08:30)
--- NOTE | 2020-07-28 08:42 | IPNPDOC ---
Text Note Date of Service The patient was seen on 07/28/20. NOTE Subjective: Patient is an 84-year-old female with a PMHx of multiple episodes of C. diff colitis who presented to the emergency room with complaints of worsening diarrhea. Patient has completed her course of vancomycin prolonged taper a few weeks ago. Patient was admitted to the hospital service for further evaluation and treatment. GI panel had shown C. difficile colitis. Patient was seen and examined at the bedside. Patient was that she has had 3 bowel movements yesterday, and has not experience any further bowel movements today. She denies any chest pain, shortness breath, palpitations. Has not experience any nausea, vomiting or abdominal pain. Denies any urinary discomfort. Objective: Vitals (See below) General: Patient is sitting up in bed, appears to be comfortable, is oriented to person, place and time HEENT: NC, AT CVS: +S1S2 Lungs: There appears to be fair air entry bilaterally without any evidence of w heezing, crackles or rhonchi Abdomen: Soft, nondistended and nontender Extremities: Lower extremities do not reveal any significant pitting edema, - Calf tenderness Imaging: CXR 07/26: No focal consolidation or effusion. CT abdomen / pelvis 07/26: Pattern of small bowel and proximal colon suggests inflammatory or infectious enteritis without obstruction. The pattern is not typical of Clostridium difficile colitis, particularly with the involvement of small bowel and only minor involvement of the colon. Assessment and plan: Diarrhea - possibly 2/2 C. diff colitis - Patient has had multiple episodes of diarrhea in the past; has recently completed vancomycin taper - Patient has had 3 bowel movements yesterday. No bowel movement reported today - s/p Leukocytosis - Imaging noted above - c/w Fidaxomicin (Day #2) - Case discussed with Dr. Taylor, GI; will continue with the Fidaxomicin and monitor diarrhea s/p Hypokalemia Hypertension - BP well controlled - c/w bisoprolol Chronic back pain - c/w hydrocodone, gabapentin, cyclobenzaprine Hyperlipidemia - c/w rosuvastatin Insomnia - c/w Benadryl PRN Iron deficiency anemia - c/w Iron supplementation Vitamin D deficiency -Continue home dose of vitamin D supplementation Depression - c/w Paroxetine GERD - c/w Famotidine DVT prophylaxis - c/w Lovenox Disposition: - Awaiting clinical improvement - Anticipate discharge tomorrow VS,Matthias, I+O VS, Arelie, I+O Laboratory Tests 07/28/20 06:43 Vital Signs Date Time Temp Pulse Resp B/P (MAP) Pulse Ox O2 Delivery O2 Flow Rate FiO2 07/28/20 06:00 98.7 87 20 134/72 (92) 96 07/27/20 22:39 Room Air I&O- Last 24 Hours up to 6 AM 07/28/20 06:00 Intake Total 4580 ml Output Total 750 ml Balance 3830 ml NATHANIEL DE ANDA MD July 28, 2020 08:42
[2020-07-28] MEDS: FIDAXOMICIN 200 MG TAB (DIFICID) PO SCH ×2 (08:45→21:29)
[2020-07-28] MEDS: GABAPENTIN 400MG CAP PO SCH ×2 (08:45→21:30)
[2020-07-28] MEDS: OCUVITE 1 TAB PO SCH (08:46)
[2020-07-28] MEDS: VITAMIN D 1,000 INTERNATIONAL UNITS TABLET PO SCH (08:46)
[2020-07-28] MEDS: COLESEVELAM 625 MG TAB (WELCHOL) PO SCH ×2 (08:46→18:03)
[2020-07-28] MEDS: POTASSIUM CHLORIDE 10 MEQ SR TABLET PO SCH (08:46)
[2020-07-28] MEDS: ROSUVASTATIN 10 MG TAB (CRESTOR) PO SCH (08:46)
[2020-07-28] MEDS: PARoxetine 20MG TABLET PO SCH (08:46)
[2020-07-28] MEDS: FAMOTIDINE 20 MG TAB PO SCH (08:46)
[2020-07-28] MEDS: METAMUCIL (PSYLLIUM) PACKET PO SCH (08:47)
[2020-07-28] MEDS: NORCO, ANEXSIA 5/325MG TABLET (HYDROcodone/ACETAMINOPHEN) PO SCH ×2 (08:48→21:31)
[2020-07-28] MEDS: bisoproloL fumarate 10 MG TAB PO SCH (08:50)
[2020-07-28 14:00] VITALS: BP 147/84
[2020-07-28] MEDS: RAMELTEON 8 MG TAB (ROZEREM) PO PRN (21:29)
[2020-07-28] MEDS: CYCLOBENZAPRINE 5MG TABLET PO SCH (21:30)
[2020-07-28] MEDS: ENOXAPARIN 40MG/0.4ML SYRINGE (J1650 PER 10MG) SC SCH (21:31)
[2020-07-28 22:00] VITALS: BP 155/79
[2020-07-29 06:00] VITALS: BP 148/72
[2020-07-29 06:33] LABS: HEMATOCRIT 34.6 % (36.0-47.0); HEMOGLOBIN 10.8 g/dl (12.0-15.5); MEAN CORPUSCULAR HEMOGLOBIN 31.3 pg (27.0-33.0); MEAN CORPUSCULAR HGB CONC 31.2 g/dl (32.0-36.5); MEAN CORPUSCULAR VOLUME 100.3 fl (80.0-96.0); PLATELET COUNT, AUTOMATED 263 10^3/uL (150-450); RED BLOOD COUNT 3.45 10^6/uL (4.00-5.40)
[2020-07-29 06:57] LABS: BLOOD UREA NITROGEN 8 MG/DL (7-18); CALCIUM LEVEL 9.6 MG/DL (8.8-10.2); CARBON DIOXIDE LEVEL 25 MEQ/L (21-32); CHLORIDE LEVEL 110 MEQ/L (98-107); CREATININE FOR GFR 0.56 MG/DL (0.55-1.30); GLOMERULAR FILTRATION RATE > 60.0 (>32); GLUCOSE, FASTING 102 MG/DL (70-100); MAGNESIUM LEVEL 1.9 MG/DL (1.8-2.4); POTASSIUM SERUM 3.9 MEQ/L (3.5-5.1); SODIUM LEVEL 142 MEQ/L (136-145)
[2020-07-29 08:26] VITALS: BP 153/83
[2020-07-29] MEDS: bisoproloL fumarate 10 MG TAB PO SCH (08:26)
[2020-07-29] MEDS: METAMUCIL (PSYLLIUM) PACKET PO SCH (08:26)
[2020-07-29] MEDS: COLESEVELAM 625 MG TAB (WELCHOL) PO SCH ×2 (08:26→18:03)
[2020-07-29] MEDS: ROSUVASTATIN 10 MG TAB (CRESTOR) PO SCH (08:27)
[2020-07-29] MEDS: VITAMIN D 1,000 INTERNATIONAL UNITS TABLET PO SCH (08:27)
[2020-07-29] MEDS: OCUVITE 1 TAB PO SCH (08:27)
[2020-07-29] MEDS: PARoxetine 20MG TABLET PO SCH (08:27)
[2020-07-29] MEDS: FAMOTIDINE 20 MG TAB PO SCH (08:27)
[2020-07-29] MEDS: FIDAXOMICIN 200 MG TAB (DIFICID) PO SCH ×2 (08:27→18:03)
[2020-07-29] MEDS: NORCO, ANEXSIA 5/325MG TABLET (HYDROcodone/ACETAMINOPHEN) PO SCH (08:28)
[2020-07-29] MEDS: FERROUS SULFATE 325MG TAB PO SCH (08:28)
[2020-07-29] MEDS: POTASSIUM CHLORIDE 10 MEQ SR TABLET PO SCH (08:28)
[2020-07-29] MEDS: GABAPENTIN 400MG CAP PO SCH (08:28)
[2020-07-29] MEDS ORDERED: DIFI200T PO (09:19)
[2020-07-29 14:00] VITALS: BP 107/55
--- NOTE | 2020-07-29 14:21 | DS.PDOC ---
Discharge Summary General Date of Admission July 27, 2020 at 09:52 Date of Discharge 07/29/2020 Discharge Summary PROCEDURES PERFORMED DURING STAY: [None]. ADMITTING DIAGNOSES / DISCHARGE DIAGNOSES: Diarrhea - possibly 2/2 C. diff colitis s/p Hypokalemia Hypertension Chronic back pain Hyperlipidemia Insomnia Iron deficiency anemia Vitamin D deficiency Depression GERD DVT prophylaxis COMPLICATIONS/CHIEF COMPLAINT: Dehydration,Enteritis. HISTORY OF PRESENT ILLNESS: Patient is an 84-year-old female with a PMHx of multiple episodes of C. diff colitis who presented to the emergency room with complaints of worsening diarrhea. Patient has completed her course of vancomycin prolonged taper a few weeks ago. Patient was admitted to the hospital service for further evaluation and treatment. GI panel had shown C. difficile colitis. HOSPITAL COURSE: Diarrhea - possibly 2/2 C. diff colitis - Patient has had multiple episodes of diarrhea in the past; has recently completed vancomycin taper - Patient has not experience any significant diarrhea yesterday; no BM reported yesterday or today - s/p Leukocytosis - Imaging noted above - c/w Fidaxomicin (Day #3); will continue with medication coverage as an outpatient - Case discussed with Dr. Taylor, GI; will continue with the Fidaxomicin and monitor diarrhea - Will have outpatient follow up with PCP and GI within 7 days - PFS working on coverage of Dificid as an outpatient s/p Hypokalemia Hypertension - BP well controlled - c/w bisoprolol Chronic back pain - c/w hydrocodone, gabapentin, cyclobenzaprine Hyperlipidemia - c/w rosuvastatin Insomnia - c/w Benadryl PRN Iron deficiency anemia - c/w Iron supplementation Vitamin D deficiency - c/w home dose of vitamin D supplementation Depression - c/w Paroxetine GERD - c/w Famotidine DVT prophylaxis - c/w Lovenox DISCHARGE MEDICATIONS: Please see below. ALLERGIES: Please see below. PHYSICAL EXAMINATION ON DISCHARGE: Vitals (See below) General: Patient has been ambulating in the room, no acute distress, appears comfortable, AAOx3 HEENT: normocephalic, atraumatic CVS: +S1S2 Lungs: Air entry remains fair bilaterally; no auscultated rhonchi / crackles / wheezing appreciated Abdomen: Remains soft without distension / tenderness Extremities: No evidence of significant edema, - Calf tenderness LABORATORY DATA: Please see below. IMAGING: CXR 07/26: No focal consolidation or effusion. CT abdomen / pelvis 07/26: Pattern of small bowel and proximal colon suggests inflammatory or infectious enteritis without obstruction. The pattern is not typical of Clostridium difficile colitis, particularly with the involvement of small bowel and only minor involvement of the colon. ACTIVITY: [As tolerated]. DISCHARGE PLAN: Please follow up with PCP and GI within 7 days Remain compliant with treatment plan and medications Return to the ER if you experience any problems DISPOSITION: Home DISCHARGE CONDITION: [Stable]. TIME SPENT ON DISCHARGE: 35 minutes. Vital Signs/I&Os Vital Signs Date Time Temp Pulse Resp B/P (MAP) Pulse Ox O2 Delivery O2 Flow Rate FiO2 07/29/20 09:46 16 07/29/20 08:26 80 153/83 07/29/20 06:00 98.4 96 Room Air I&O- Last 24 Hours up to 6 AM 07/29/20 06:00 Intake Total 3820 ml Output Total 200 ml Balance 3620 ml Laboratory Data Labs 24H Laboratory Tests 2 07/29/20 06:02: Nucleated Red Blood Cells % (auto) 0.0, Anion Gap 7L, Glomerular Filtration Rate > 60.0, Calcium Level 9.6, Magnesium Level 1.9 CBC/BMP Laboratory Tests 07/29/20 06:02 Microbiology Microbiology 07/26/20 Gastrointestinal Tract Panel (PCR) - Final, Complete Clostridium Difficile A/B 07/26/20 Urine Culture - Final, Complete Escherichia Coli 07/26/20 Blood Culture - Preliminary, Resulted No Growth after 48 hours. All Specime... 07/26/20 Blood Culture - Preliminary, Resulted No Growth after 48 hours. All Specime... Discharge Medications Scheduled Bisoprolol Fumarate (Bisoprolol Fumarate) 10 Mg Tablet, 10 MG PO DAILY, (Reported) C,E,Zinc,Copper 24/Om3/Lut/Eloy (Ocuvite Adult 50 Plus Softgel) 1 Each Capsule, 1 CAP PO DAILY, (Reported) Cholecalciferol (Vitamin D3) (Vitamin D3) 1,000 Unit Tablet, 2,000 UNITS PO DAILY, (Reported) Colesevelam HCl (Colesevelam HCl) 625 Mg Tablet, 625 MG PO BIDWM, (Reported) Cyclobenzaprine HCl (Cyclobenzaprine HCl) 5 Mg Tablet, 5 MG PO QHS, (Reported) Esomeprazole Magnesium (Nexium) 40 Mg Capsule.dr, 40 MG PO BID, (Reported) ON HOLD PER SEO ASSOCIATE Famotidine (Famotidine) 20 Mg Tablet, 20 MG PO DAILY, (Reported) Ferrous Sulfate (Ferrous Sulfate) 325 Mg Tablet.dr, 325 MG PO Q2D, (Reported) Fidaxomicin (Dificid) 200 Mg Tablet, 200 MG PO BID Gabapentin (Gabapentin) 400 Mg Capsule, 400 MG PO BID, (Reported) TAKES AM/1600 Hydrocodone/Acetaminophen (Hydrocodone-Acetamin 10-325 mg) 1 Each Tablet, 2 TAB PO BID, (Reported) Multivitamin with Minerals (Hair, Skin and Nails) 1 Each Tablet, 1 TAB PO DAILY, (Reported) Paroxetine HCl (Paroxetine HCl) 20 Mg Tablet, 20 MG PO DAILY, (Reported) Potassium Chloride (Potassium Chloride) 10 Meq Tab.er.prt, 10 MEQ PO DAILY, (Reported) Psyllium Husk/Aspartame (Metamucil Fiber Singles Packet) 3.4 Gm Powd.pack, 1 PKT PO DAILY, (Reported) Rosuvastatin Calcium (Crestor) 40 Mg Tablet, 40 MG PO DAILY, (Reported) diphenhydrAMINE HCl (diphenhydrAMINE HCl) 25 Mg Tablet, 50 MG PO QHS, (Reported) Scheduled PRN Acetaminophen/Caffeine (Tension Headache Caplet) 1 Each Tablet, 1 TAB PO DAILY PRN for HEADACHE, (Reported) Allergies Coded Allergies: Penicillins (Verified Allergy, Mild, rash, 08/26/18) aspirin (Verified Allergy, Mild, rash, 08/26/18) atorvastatin (Verified Allergy, Unknown, 08/26/18) rivaroxaban (Verified Adverse Reaction, Unknown, GI BLEED, 07/26/20) NATHANIEL DE ANDA MD July 29, 2020 14:21
== END 2020-07-29 18:50 | disposition home health service (06) | DRG 373 ==
LOC: M ED 14:23 → M ED INP 18:27 → ENRESERV 18:53 → M MSPAV 20:18 → OBSVTOIN 07-27 09:52
PROVIDERS: ADMIT Neuromusculoskeletal Medicine & OMM; ATTEND Internal Medicine
DX: A04.71 Enterocolitis due to Clostridium difficile, recurrent (principal); D50.9 Iron deficiency anemia, unspecified; I10 Essential (primary) hypertension; M54.9 Dorsalgia, unspecified; G89.29 Other chronic pain; E55.9 Vitamin D deficiency, unspecified; E78.5 Hyperlipidemia, unspecified; G47.00 Insomnia, unspecified; M81.0 Age-related osteoporosis without current pathological fracture; K21.9 Gastro-esophageal reflux disease without esophagitis; G47.33 Obstructive sleep apnea (adult) (pediatric); F03.90 Unspecified dementia, unspecified severity, without behavioral disturbance, psychotic disturbance, mood disturbance, and anxiety; R73.01 Impaired fasting glucose; F32.9 Major depressive disorder, single episode, unspecified; Z90.49 Acquired absence of other specified parts of digestive tract; Z86.711 Personal history of pulmonary embolism; Z85.828 Personal history of other malignant neoplasm of skin; Z89.022 Acquired absence of left finger(s); E86.0 Dehydration; E87.6 Hypokalemia; Z20.822 Contact with and (suspected) exposure to COVID-19; Z79.899 Other long term (current) drug therapy; Z88.0 Allergy status to penicillin; Z88.6 Allergy status to analgesic agent; Z88.8 Allergy status to other drugs, medicaments and biological substances

== ENCOUNTER 2020-07-31 11:32 | Inpatient (IN) | payer MEDICARE ==
[~2020-07-31] VITALS: Ht 152.4 cm; Wt 77.3 kg
[~2020-07-31 11:32] MED LIST changes: +BACTDSTA PO; +DIFI200T PO; +FAMO1TAB11 PO; +FERR325T3 PO; +GABA-283 PO; -GABA-845 PO; +META1POW PO; +PEPC40TA12 PO; -SULF1TAB93 PO
[2020-07-31] MEDS ORDERED: ONDANSETRON 4MG/2ML VIAL IV ONE (12:55)
[2020-07-31] MEDS ORDERED: NS 1,000 ML IV SCH (12:55)
[2020-07-31 13:25] LABS: BASO % 0.3 % (0.0-1.0); EOS # 0.1 10^3/uL (0.0-0.5); EOS % 0.4 % (0.0-3.0); HEMATOCRIT 41.9 % (36.0-47.0); HEMOGLOBIN 13.5 g/dl (12.0-15.5); LYMPH # 1.6 10^3/uL (1.5-5.0); LYMPH % 14.1 % (24.0-44.0); MEAN CORPUSCULAR HEMOGLOBIN 30.7 pg (27.0-33.0); MEAN CORPUSCULAR HGB CONC 32.2 g/dl (32.0-36.5); MEAN CORPUSCULAR VOLUME 95.2 fl (80.0-96.0); MONO # 0.9 10^3/uL (0.0-0.8); NEUTROPHILS # 8.9 10^3/uL (1.5-8.5); NEUTROPHILS % 76.4 % (36.0-66.0); PLATELET COUNT, AUTOMATED 370 10^3/uL (150-450); WHITE BLOOD COUNT 11.6 10^3/uL (4.0-10.0)
[2020-07-31 14:18] LABS: BLOOD UREA NITROGEN 14 MG/DL (7-18); CARBON DIOXIDE LEVEL 27 MEQ/L (21-32); CHLORIDE LEVEL 105 MEQ/L (98-107); GLOMERULAR FILTRATION RATE > 60.0 (>32); GLUCOSE, FASTING 144 MG/DL (70-100); POTASSIUM SERUM 3.9 MEQ/L (3.5-5.1); SODIUM LEVEL 140 MEQ/L (136-145)
[2020-07-31 14:19] LABS: ALBUMIN 3.8 GM/DL (3.2-5.2); ALT/SGPT 30 U/L (12-78); BILIRUBIN,TOTAL 0.4 MG/DL (0.2-1.0); CALCIUM LEVEL 10.6 MG/DL (8.8-10.2); MAGNESIUM LEVEL 1.9 MG/DL (1.8-2.4); TOTAL PROTEIN 6.9 GM/DL (6.4-8.2)
--- NOTE | 2020-07-31 15:11 | REP ---
INDICATION: abd pian V/D COMPARISON: 07/26/2020. TECHNIQUE: CT Scan of the abdomen and pelvis was performed without intravenous contrast. Sagittal and coronal reconstruction images performed. FINDINGS: Lung bases: There are mild bibasilar fibrotic changes. There is a small hiatal hernia. Liver: There is a small stable cyst in the liver. Gallbladder: Status post cholecystectomy. Spleen: Grossly unremarkable. Adrenals: Normal. Pancreas: Grossly unremarkable.. Kidneys: Right renal cyst is unchanged. There is no hydronephrosis or nephrolithiasis. Small and large bowel: There is colonic diverticulosis. There is no evidence of acute diverticulitis.The duodenum is diffusely thickened and moderately dilated compatible with duodenitis. Proximal jejunum demonstrates diffuse mucosal fold prominence and mild diffuse dilatation, possibly representing small bowel enteritis. There is no evidence of a discrete transition point of small bowel obstruction. There is no free air. Free fluid: None. Abdominal aorta: No aneurysm. Adenopathy: None. Appendix: Not inflamed. Osseous structures: There are degenerative changes of the spine with fusion hardware at the lumbosacral junction. Pelvis: No mass. Prior hysterectomy. No bladder calculus seen. There is a small umbilical hernia containing a loop of nonobstructed small bowel. IMPRESSION: The duodenum is diffusely thickened and moderately dilated, compatible with duodenitis. Proximal jejunum demonstrates diffuse mucosal fold prominence and mild diffuse dilatation, possibly representing small bowel enteritis in this region. There is no evidence of a discrete transition point of small bowel obstruction. There is no free air or free fluid. <Electronically signed by Franki Best > 07/31/20 [id number]
[2020-07-31 15:12] LABS: RSV AMPLIFICATION NEGATIVE (NEGATIVE)
[2020-07-31] MEDS ORDERED: ONDANSETRON 4MG/2ML VIAL IV PRN (17:05)
--- NOTE | 2020-07-31 17:11 | HPEPDOC ---
[facility] Medical History & Physical Date of Admission July 31, 2020 Date of Service: July 31, 2020 History and Physical Chief complaint: Who presented to the ER with diarrhea History of present illness: Patient is an 84-year-old female who presented to the emergency room with complaints of diarrhea. Patient has had a long-standing history of recurrent C. difficile colitis. Patient was initially diagnosed with C. 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 Patient has been experiencing diarrhea on and off since that point and has tried several different therapies that have been unsuccessful. Patient was recently on a vancomycin pulse dose. After completion of which did have resolution of her diarrhea. However, had a recurrence and was admitted to the hospital on 07/27. Patient was given Dificid and had improvement of her symptoms. Patient was subsequently discharged on 07/29 after reporting resolution of her symptoms. Patient was advised to continue with Dificid for 7 more days. On 07/30 evening patient had diarrhea and vomiting reported. 5 episodes of vomiting described as brown, 5 episodes of diarrhea described as watery, brown. This morning patient did not have any vomiting but did report an episode of diarrhea and came to the emergency room for further evaluation. Patient reports a mild headache, but denies any lightheadedness or dizziness. Patient denies any chest pain, shortness of breath, cough, abdominal pain, or urinary discomfort. Denies any recent fevers or chills. Patient has reported that her last solid meal was yesterday evening. Past Medical History: History of Multiple C. difficile colitis; failed stool transplant (2009) HTN Hx of PE Impaired fasting glucose DLP LATANYA; not on CPAP Iron deficiency anemia, perhaps also history of blood loss anemia due to GI bleeds History of GI bleeds Dementia, mild Vitamin D deficiency Osteoporosis Chronic back pain Depression / Insomnia Past Surgical History: Right knee surgery Neck surgery + Back surgery Melanoma removed from her back Hysterectomy Left ring and pinky finger amputation Tonsillectomy Sinus surgery D&C Bladder suspension Cholecystectomy Carpal tunnel release Allergies: See below Medications: See below Family History: -Family history was reviewed and noncontributory. Mother with a history of breast cancer. 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 Review of Systems: 10 point review of systems complete, all negative otherwise stated in HPI Physical exam: - Vitals: BP [129/80], HR [92], RR [18], Sat [95%RA], Temp [97.5F] - General: Lying in bed, Speaking in full sentences, AAOx3 - HEENT: NC, AT, PERRLA - CVS: RRR, +S1S2 - Lungs: Fair air entry bilaterally, No appreciable wheezing / rales / rhonchi - Abdomen: Soft, Non-distended, Non-tender - Extremities: No lower extremity edema, No calf tenderness - Neuro: No focal motor or sensory deficit - Skin: No visible rashes Labs: See below Imaging: CT abdomen / pelvis 07/31: The duodenum is diffusely thickened and moderately dilated, compatible with duodenitis. Proximal jejunum demonstrates diffuse mucosal fold prominence and mild diffuse dilatation, possibly representing small bowel enteritis in this region. There is no evidence of a discrete transition point of small bowel obstruction. There is no free air or free fluid. EKG: See below Assessment and Plan: Recurrent diarrhea - likely 2/2 C. diff colitis - History of Multiple C. difficile colitis; failed stool transplant (2009) - She has presented again to the emergency room with worsening diarrhea associated with nausea and vomiting - Physical is unrevealing; remains hemodynamically stable and afebrile - Lab work does show an elevation of creatinine from her baseline. However, still is within normal range - Imaging reviewed above - Will continue with Fidaxomicin - Will start Zofran / Continue Colesevelam / Metamucil - Will continue IV fluid hydration - Taste discussed with and consulted gastroenterology for possible stool transplantation HTN - BP well controlled - c/w Bisoprolol Hx of PE - Currently off of anticoagulation Impaired fasting glucose - Diet controlled DLP - c/w Rosuvastatin LATANYA - Patient is not on CPAP Iron deficiency anemia - History of GI bleeds - Will check iron panels - c/w Ferrous sulfate Dementia, mild - Patient lives with her - Daughter visits frequently Vitamin D deficiency - c/w supplementation Osteoporosis Chronic back pain - c/w [place], Cyclobenzaprine, Gabapentin Depression / Insomnia - c/w Paroxetine - Will start [place] QHS PRN GERD - c/w Famotidine; will hold PPI DVT prophylaxis - Will start Heparin Vital Signs Vital Signs Date Time Temp Pulse Resp B/P (MAP) Pulse Ox O2 Delivery O2 Flow Rate FiO2 07/31/20 14:27 07/31/20 11:33 97.5 92 18 95 Room Air Laboratory Data Labs 24H Laboratory Tests 2 07/31/20 13:12: Immature Granulocyte % (Auto) 0.8, Neutrophils (%) (Auto) 76.4H, Lymphocytes (%) (Auto) 14.1L, Monocytes (%) (Auto) 8.0, Eosinophils (%) (Auto) 0.4, Basophils (%) (Auto) 0.3, Neutrophils # (Auto) 8.9H, Lymphocytes # (Auto) 1.6, Monocytes # (Auto) 0.9H, Eosinophils # (Auto) 0.1, Basophils # (Auto) 0.0, Nucleated Red Blood Cells % (auto) 0.0, Anion Gap 8, Glomerular Filtration Rate > 60.0, Calcium Level 10.6H, Magnesium Level 1.9, Total Bilirubin 0.4, Aspartate Amino Transf (AST/SGOT) 31, Alanine Aminotransferase (ALT/SGPT) 30, Alkaline Phosph atase 59, Total Protein 6.9, Albumin 3.8, Albumin/Globulin Ratio 1.2 07/31/20 14:23: Coronavirus (COVID-19)(PCR) NEGATIVE, Influenza Type A (RT-PCR) NEGATIVE, Influenza Type B (RT-PCR) NEGATIVE, Respiratory Syncytial Virus (PCR) NEGATIVE CBC/BMP Laboratory Tests 07/31/20 13:12 Home Medications Scheduled Bisoprolol Fumarate (Bisoprolol Fumarate) 10 Mg Tablet, 10 MG PO DAILY C,E,Zinc,Copper 24/Om3/Lut/[place] (Ocuvite Adult 50 Plus Softgel) 1 Each Capsule, 1 CAP PO DAILY Cholecalciferol (Vitamin D3) (Vitamin D3) 1,000 Unit Tablet, 2,000 UNITS PO DAILY Colesevelam HCl (Colesevelam HCl) 625 Mg Tablet, 625 MG PO BIDWM Cyclobenzaprine HCl (Cyclobenzaprine HCl) 5 Mg Tablet, 5 MG PO QHS Esomeprazole Magnesium (Nexium) 40 Mg Capsule.dr, 40 MG PO BID ON HOLD PER SOCIOLOGY RESEARCH ASSISTANT Famotidine (Famotidine) 20 Mg Tablet, 20 MG PO DAILY Ferrous Sulfate (Ferrous Sulfate) 325 Mg Tablet.dr, 325 MG PO Q2D Fidaxomicin (Dificid) 200 Mg Tablet, 200 MG PO BID Gabapentin (Gabapentin) 400 Mg Capsule, 400 MG PO BID TAKES AM/1600 Hydrocodone/Acetaminophen (Hydrocodone-Acetamin 10-325 mg) 1 Each Tablet, 2 TAB PO BID Multivitamin with Minerals (Hair, Skin and Nails) 1 Each Tablet, 1 TAB PO DAILY Paroxetine HCl (Paroxetine HCl) 20 Mg Tablet, 20 MG PO DAILY Potassium Chloride (Potassium Chloride) 10 Meq Tab.er.prt, 10 MEQ PO DAILY Psyllium Husk/Aspartame (Metamucil Fiber Singles Packet) 3.4 Gm Powd.pack, 1 PKT PO DAILY Rosuvastatin Calcium (Crestor) 40 Mg Tablet, 40 MG PO DAILY diphenhydrAMINE HCl (diphenhydrAMINE HCl) 25 Mg Tablet, 50 MG PO QHS Scheduled PRN Acetaminophen/Caffeine (Tension Headache Caplet) 1 Each Tablet, 1 TAB PO DAILY PRN for HEADACHE Allergies Coded Allergies: Penicillins (Verified Allergy, Mild, rash, 08/26/18) aspirin (Verified Allergy, Mild, rash, 08/26/18) atorvastatin (Verified Allergy, Unknown, 08/26/18) rivaroxaban (Verified Adverse Reaction, Unknown, GI BLEED, 07/26/20) NATHANIEL DE ANDA MD July 31, 2020 17:11
[2020-07-31 17:33] LABS: FERRITIN 582 NG/ML (8-252); IRON (FE) 35 UG/DL (50-170); PERCENT SATURATION 12.2 % (13.2-45.0); TOTAL IRON BINDING CAPACITY 287 UG/DL (250-450)
[2020-07-31 17:42] LABS: FOLATE 18.9 NG/ML
[2020-07-31 18:18] LABS: VITAMIN B12 LEVEL 971 PG/ML
[2020-07-31] MEDS: NS 1,000 ML IV SCH (19:43)
[2020-07-31] MEDS: GABAPENTIN 400MG CAP PO SCH (19:44)
[2020-07-31] MEDS: NORCO, ANEXSIA 5/325MG TABLET (HYDROcodone/ACETAMINOPHEN) PO SCH (21:41)
[2020-07-31] MEDS: FIDAXOMICIN 200 MG TAB (DIFICID) PO SCH (21:41)
[2020-07-31] MEDS: CYCLOBENZAPRINE 5MG TABLET PO SCH (21:41)
[2020-07-31] MEDS: COLESEVELAM 625 MG TAB (WELCHOL) PO SCH (21:41)
[2020-07-31 22:20] VITALS: BP 140/80
[2020-07-31] MEDS: RAMELTEON 8 MG TAB (ROZEREM) PO PRN (22:49)
[2020-07-31] MEDS: ACETAMINOPHEN TAB 650MG DOSE (2X325MG) PO PRN (22:50)
[2020-07-31] MEDS: HEPARIN SOD (PORCINE) 5000UNITS/ML 1ML VIAL/SYRINGE SC SCH (22:50)
[2020-08-01] MEDS: NS 1,000 ML IV SCH ×2 (06:38→18:12)
[2020-08-01] MEDS: HEPARIN SOD (PORCINE) 5000UNITS/ML 1ML VIAL/SYRINGE SC SCH ×3 (06:42→20:55)
[2020-08-01 07:02] VITALS: BP 137/78
[2020-08-01 07:22] LABS: BASO % 0.4 % (0.0-1.0); EOS # 0.2 10^3/uL (0.0-0.5); EOS % 1.9 % (0.0-3.0); HEMATOCRIT 39.3 % (36.0-47.0); HEMOGLOBIN 11.8 g/dl (12.0-15.5); LYMPH # 2.3 10^3/uL (1.5-5.0); LYMPH % 22.1 % (24.0-44.0); MEAN CORPUSCULAR HEMOGLOBIN 30.2 pg (27.0-33.0); MEAN CORPUSCULAR VOLUME 100.5 fl (80.0-96.0); MONO # 0.9 10^3/uL (0.0-0.8); MONO % 8.8 % (2.0-8.0); NEUTROPHILS # 6.9 10^3/uL (1.5-8.5); PLATELET COUNT, AUTOMATED 295 10^3/uL (150-450); RED BLOOD COUNT 3.91 10^6/uL (4.00-5.40); WHITE BLOOD COUNT 10.5 10^3/uL (4.0-10.0)
[2020-08-01 07:39] LABS: BLOOD UREA NITROGEN 13 MG/DL (7-18); CARBON DIOXIDE LEVEL 24 MEQ/L (21-32); CHLORIDE LEVEL 110 MEQ/L (98-107); CREATININE FOR GFR 0.66 MG/DL (0.55-1.30); GLOMERULAR FILTRATION RATE > 60.0 (>32); GLUCOSE, FASTING 132 MG/DL (70-100); POTASSIUM SERUM 3.5 MEQ/L (3.5-5.1); SODIUM LEVEL 141 MEQ/L (136-145)
[2020-08-01 07:40] LABS: CALCIUM LEVEL 9.2 MG/DL (8.8-10.2); MAGNESIUM LEVEL 1.6 MG/DL (1.8-2.4)
[2020-08-01] MEDS ORDERED: MAG SULF 1GM/100ML (MAG RUN) 1 GM in IV 1 EA IV ONE (08:15)
[2020-08-01] MEDS: ROSUVASTATIN 10 MG TAB (CRESTOR) PO SCH (08:54)
[2020-08-01] MEDS: VITAMIN D 1,000 INTERNATIONAL UNITS TABLET PO SCH (08:55)
[2020-08-01] MEDS: PARoxetine 20MG TABLET PO SCH (08:55)
[2020-08-01] MEDS: FAMOTIDINE 20 MG TAB PO SCH (08:56)
[2020-08-01] MEDS: COLESEVELAM 625 MG TAB (WELCHOL) PO SCH ×2 (08:56→18:12)
[2020-08-01] MEDS: FIDAXOMICIN 200 MG TAB (DIFICID) PO SCH ×2 (08:56→20:54)
[2020-08-01] MEDS: bisoproloL fumarate 10 MG TAB PO SCH (08:57)
[2020-08-01] MEDS: GABAPENTIN 400MG CAP PO SCH ×2 (08:57→15:03)
[2020-08-01] MEDS: MULTIVITAMINS/MINERALS THERAP 1 TAB PO SCH (08:58)
[2020-08-01] MEDS: POTASSIUM CHLORIDE 10 MEQ SR TABLET PO SCH (08:58)
[2020-08-01] MEDS: OCUVITE 1 TAB PO SCH (08:58)
[2020-08-01] MEDS: METAMUCIL (PSYLLIUM) PACKET PO SCH (08:58)
[2020-08-01] MEDS: NORCO, ANEXSIA 5/325MG TABLET (HYDROcodone/ACETAMINOPHEN) PO SCH ×2 (09:00→20:56)
--- NOTE | 2020-08-01 09:56 | IPNPDOC ---
Text Note Date of Service The patient was seen on 08/01/20. NOTE Subjective: Patient is an 84-year-old female who presented to the emergency room with complaints of diarrhea. Patient has had a long-standing history of r ecurrent C. difficile colitis. Patient was initially diagnosed with C. 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 Patient has been experiencing diarrhea on and off since that point and has tried several different therapies that have been unsuccessful. Patient was recently on a vancomycin pulse dose. After completion of which did have resolution of her diarrhea. However, had a recurrence and was admitted to the hospital on 07/27. Patient was given Dificid and had improvement of her symptoms. Patient was subsequently discharged on 07/29 after reporting resolution of her symptoms. Patient was advised to continue with Dificid for 7 more days. She has presented to the emergency room again and was admitted for failure of Dificid. Gastroenterology was called on consultation. Patient was seen and examined at the bedside. Patient reports that she still continues to experience diarrhea has not experiencing nausea, vomiting, chest pain, shortness breath, palpitations or lightheadedness. Objective: Vitals (See below) General: Lying in bed, appears comfortable, AAOx3 HEENT: NC, AT CVS: +S1S2 Lungs: Fair air entry b/l, no evidence of wheezing, rhonchi or rales Abdomen: Soft, nondistended and nontender Extremities: - Edema, - Calf tenderness Imaging: CT abdomen / pelvis 07/31: The duodenum is diffusely thickened and moderately dilated, compatible with duodenitis. Proximal jejunum demonstrates diffuse mucosal fold prominence and mild diffuse dilatation, possibly representing small bowel enteritis in this region. There is no evidence of a discrete transition point of small bowel obstruction. There is no free air or free fluid. Assessment and Plan: Recurrent diarrhea - likely 2/2 C. diff colitis, possibly 2/2 enteritis - History of Multiple C. difficile episodes; failed stool transplant (2009) - Presented again to the ER with worsening diarrhea associated with nausea and vomiting - Still continues to experience diarrhea overnight - Hemodynamically stable and afebrile - Lab work does show an elevation of creatinine from her baseline. However, still is within normal range - Imaging reviewed above - c/w Fidaxomicin (Day #5) - c/w Zofran / Colesevelam / Metamucil - c/w Gentle IV fluid hydration - Gastroenterology on consultation; evaluation for possible stool tr ansplantation Hypomagnesemia - Will supplement HTN - BP well controlled - c/w Bisoprolol Hx of PE - Currently off of anticoagulation Impaired fasting glucose - Diet controlled DLP - c/w Rosuvastatin LATANYA - Patient is not on CPAP Iron deficiency anemia - History of GI bleeds - Will check iron panels - c/w Ferrous sulfate Dementia, mild - Patient lives with her - Daughter visits frequently Vitamin D deficiency - c/w supplementation Osteoporosis Chronic back pain - c/w [place], Cyclobenzaprine, Gabapentin Depression / Insomnia - c/w Paroxetine - c/w Ram[place]te[place] QHS PRN GERD - c/w Famotidine; will hold PPI DVT prophylaxis - c/w Heparin Disposition: - Awaiting clinical improvement - [facility] transplant evaluation VS,Matthias, I+O VS, Matthias, I+O Laboratory Tests 07/31/20 13:12 08/01/20 06:57 Vital Signs Date Time Temp Pulse Resp B/P (MAP) Pulse Ox O2 Delivery O2 Flow Rate FiO2 08/01/20 09:00 20 08/01/20 08:57 81 124/67 08/01/20 07:02 98.1 97 Room Air I&O- Last 24 Hours up to 6 AM 08/01/20 06:00 Intake Total 1060 ml Output Total 0 ml Balance 1060 ml NATHANIEL DE ANDA MD August 01, 2020 09:56
[2020-08-01 14:00] VITALS: BP 117/71
[2020-08-01] MEDS: RAMELTEON 8 MG TAB (ROZEREM) PO PRN (20:54)
[2020-08-01] MEDS: CYCLOBENZAPRINE 5MG TABLET PO SCH (20:54)
[2020-08-01 20:58] VITALS: BP 125/70
[2020-08-02] MEDS: HEPARIN SOD (PORCINE) 5000UNITS/ML 1ML VIAL/SYRINGE SC SCH ×3 (05:39→21:17)
[2020-08-02] MEDS: NS 1,000 ML IV SCH ×2 (05:39→17:08)
[2020-08-02] MEDS: ACETAMINOPHEN TAB 650MG DOSE (2X325MG) PO PRN (05:59)
[2020-08-02 06:00] VITALS: BP 146/74
[2020-08-02 06:06] LABS: BASO % 0.4 % (0.0-1.0); EOS # 0.3 10^3/uL (0.0-0.5); EOS % 3.5 % (0.0-3.0); HEMATOCRIT 35.4 % (36.0-47.0); HEMOGLOBIN 10.6 g/dl (12.0-15.5); LYMPH # 2.8 10^3/uL (1.5-5.0); LYMPH % 34.6 % (24.0-44.0); MEAN CORPUSCULAR HEMOGLOBIN 30.8 pg (27.0-33.0); MEAN CORPUSCULAR HGB CONC 29.9 g/dl (32.0-36.5); MEAN CORPUSCULAR VOLUME 102.9 fl (80.0-96.0); MONO # 0.8 10^3/uL (0.0-0.8); MONO % 9.4 % (2.0-8.0); NEUTROPHILS # 4.2 10^3/uL (1.5-8.5); NEUTROPHILS % 51.4 % (36.0-66.0); PLATELET COUNT, AUTOMATED 255 10^3/uL (150-450); RED BLOOD COUNT 3.44 10^6/uL (4.00-5.40); WHITE BLOOD COUNT 8.1 10^3/uL (4.0-10.0)
[2020-08-02 06:29] LABS: BLOOD UREA NITROGEN 10 MG/DL (7-18); CALCIUM LEVEL 8.5 MG/DL (8.8-10.2); CARBON DIOXIDE LEVEL 20 MEQ/L (21-32); CHLORIDE LEVEL 115 MEQ/L (98-107); CREATININE FOR GFR 0.44 MG/DL (0.55-1.30); GLOMERULAR FILTRATION RATE > 60.0 (>32); GLUCOSE, FASTING 102 MG/DL (70-100); MAGNESIUM LEVEL 1.9 MG/DL (1.8-2.4); POTASSIUM SERUM 3.9 MEQ/L (3.5-5.1); SODIUM LEVEL 143 MEQ/L (136-145)
--- NOTE | 2020-08-02 09:39 | IPNPDOC ---
Text Note Date of Service The patient was seen on 08/02/20. NOTE Subjective: Patient is an 84-year-old female who presented to the emergency room with complaints of diarrhea. Patient has had a long-standing history of r ecurrent C. difficile colitis. Patient was initially diagnosed with C. 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 Patient has been experiencing diarrhea on and off since that point and has tried several different therapies that have been unsuccessful. Patient was recently on a vancomycin pulse dose. After completion of which did have resolution of her diarrhea. However, had a recurrence and was admitted to the hospital on 07/27. Patient was given Dificid and had improvement of her symptoms. Patient was subsequently discharged on 07/29 after reporting resolution of her symptoms. Patient was advised to continue with Dificid for 7 more days. She has presented to the emergency room again and was admitted for failure of Dificid. Gastroenterology was called on consultation. Patient was seen and examined at the bedside. Currently patient reports she still experiences diarrhea, has not spent any nausea, vomiting, chest pain, shortness breath, palpitations, abdominal pain. Patient was evaluated by gastroenterology yesterday and will receive bowel prep on Tuesday, for an EGD, on colonoscopy and stool transplant on Tuesday. Objective: Vitals (See below) General: Patient is laying in bed, appears comfortable, not in distress, awake / alert HEENT: NC, AT CVS: +S1S2 Lungs: There appears to be fair air entry bilaterally without any evidence of wheezing, crackles or rhonchi Abdomen: Abdomen again is soft without any distention or tenderness Extremities: No evidence of lower extremity edema Imaging: CT abdomen / pelvis 07/31: The duodenum is diffusely thickened and moderately dilated, compatible with duod enitis. Proximal jejunum demonstrates diffuse mucosal fold prominence and mild diffuse dilatation, possibly representing small bowel enteritis in this region. There is no evidence of a discrete transition point of small bowel obstruction. There is no free air or free fluid. Assessment and Plan: Recurrent diarrhea - likely 2/2 C. diff colitis, possibly 2/2 enteritis - History of Multiple C. difficile episodes; failed stool transplant (2009) - Presented again to the ER with worsening diarrhea associated with nausea and vomiting - No report of bowel movements overnight - Hemodynamically stable and afebrile - s/p Leukocytosis - Imaging reviewed above - c/w Fidaxomicin (Day #6); will be discontinued on Tuesday for bowel prep - c/w Zofran / Colesevelam / Metamucil - c/w Gentle IV fluid hydration - Gastroenterology on consultation; EGD/Colonoscopy/Stool transplant for Tuesday s/p Hypomagnesemia HTN - BP well controlled - c/w Bisoprolol Hx of PE - Currently off of anticoagulation Impaired fasting glucose - Diet controlled DLP - c/w Rosuvastatin LATANYA - Patient is not on CPAP Iron deficiency anemia - History of GI bleeds - c/w Ferrous sulfate Dementia, mild - Patient lives with her - Daughter visits frequently Vitamin D deficiency - c/w supplementation Osteoporosis Chronic back pain - c/w [place], Cyclobenzaprine, Gabapentin Depression / Insomnia - c/w Paroxetine - c/w Ramelteon QHS PRN GERD - c/w Famotidine; will hold PPI DVT prophylaxis - c/w Heparin Disposition: - Awaiting clinical improvement - EGD / Colonoscopy / Stool transplant on Tuesday VS,Matthias, I+O VS, Matthias, I+O Laboratory Tests 08/02/20 05:44 Vital Signs Date Time Temp Pulse Resp B/P (MAP) Pulse Ox O2 Delivery O2 Flow Rate FiO2 08/02/20 06:00 98.0 79 18 146/74 (98) 98 Room Air I&O- Last 24 Hours up to 6 AM 08/02/20 05:59 Intake Total 2136 ml Output Total 250 ml Balance 1886 ml NATHANIEL DE ANDA MD August 02, 2020 09:39
[2020-08-02] MEDS: ROSUVASTATIN 10 MG TAB (CRESTOR) PO SCH (10:20)
[2020-08-02] MEDS: METAMUCIL (PSYLLIUM) PACKET PO SCH (10:20)
[2020-08-02] MEDS: PARoxetine 20MG TABLET PO SCH (10:20)
[2020-08-02] MEDS: OCUVITE 1 TAB PO SCH (10:21)
[2020-08-02] MEDS: COLESEVELAM 625 MG TAB (WELCHOL) PO SCH ×2 (10:21→17:07)
[2020-08-02] MEDS: bisoproloL fumarate 10 MG TAB PO SCH (10:22)
[2020-08-02] MEDS: FAMOTIDINE 20 MG TAB PO SCH (10:22)
[2020-08-02] MEDS: MULTIVITAMINS/MINERALS THERAP 1 TAB PO SCH (10:22)
[2020-08-02] MEDS: POTASSIUM CHLORIDE 10 MEQ SR TABLET PO SCH (10:22)
[2020-08-02] MEDS: FIDAXOMICIN 200 MG TAB (DIFICID) PO SCH ×2 (10:22→21:17)
[2020-08-02] MEDS: FERROUS SULFATE 325MG TAB PO SCH (10:22)
[2020-08-02] MEDS: VITAMIN D 1,000 INTERNATIONAL UNITS TABLET PO SCH (10:23)
[2020-08-02] MEDS: GABAPENTIN 400MG CAP PO SCH ×2 (10:23→17:07)
[2020-08-02] MEDS: NORCO, ANEXSIA 5/325MG TABLET (HYDROcodone/ACETAMINOPHEN) PO SCH ×2 (10:52→21:18)
[2020-08-02 14:00] VITALS: BP 148/77
[2020-08-02 20:37] VITALS: BP 149/76
[2020-08-02] MEDS: CYCLOBENZAPRINE 5MG TABLET PO SCH (21:17)
[2020-08-02] MEDS: RAMELTEON 8 MG TAB (ROZEREM) PO PRN (21:17)
[2020-08-03] MEDS: NS 1,000 ML IV SCH (00:57)
[2020-08-03] MEDS: ACETAMINOPHEN TAB 650MG DOSE (2X325MG) PO PRN ×2 (00:57→05:32)
[2020-08-03] MEDS: HEPARIN SOD (PORCINE) 5000UNITS/ML 1ML VIAL/SYRINGE SC SCH ×3 (05:32→20:37)
[2020-08-03 06:00] VITALS: BP 133/64
[2020-08-03 07:56] LABS: BASO % 0.5 % (0.0-1.0); EOS # 0.2 10^3/uL (0.0-0.5); EOS % 3.1 % (0.0-3.0); HEMATOCRIT 36.9 % (36.0-47.0); HEMOGLOBIN 11.3 g/dl (12.0-15.5); LYMPH # 2.7 10^3/uL (1.5-5.0); MEAN CORPUSCULAR HEMOGLOBIN 30.3 pg (27.0-33.0); MEAN CORPUSCULAR HGB CONC 30.6 g/dl (32.0-36.5); MEAN CORPUSCULAR VOLUME 98.9 fl (80.0-96.0); MONO # 0.6 10^3/uL (0.0-0.8); NEUTROPHILS # 4.2 10^3/uL (1.5-8.5); NEUTROPHILS % 53.6 % (36.0-66.0); PLATELET COUNT, AUTOMATED 280 10^3/uL (150-450); RED BLOOD COUNT 3.73 10^6/uL (4.00-5.40); WHITE BLOOD COUNT 7.8 10^3/uL (4.0-10.0)
[2020-08-03 08:27] LABS: BLOOD UREA NITROGEN 10 MG/DL (7-18); CALCIUM LEVEL 9.2 MG/DL (8.8-10.2); CARBON DIOXIDE LEVEL 23 MEQ/L (21-32); CHLORIDE LEVEL 113 MEQ/L (98-107); CREATININE FOR GFR 0.51 MG/DL (0.55-1.30); GLOMERULAR FILTRATION RATE > 60.0 (>32); GLUCOSE, FASTING 103 MG/DL (70-100); MAGNESIUM LEVEL 1.9 MG/DL (1.8-2.4); POTASSIUM SERUM 3.8 MEQ/L (3.5-5.1); SODIUM LEVEL 141 MEQ/L (136-145)
[2020-08-03] MEDS: METAMUCIL (PSYLLIUM) PACKET PO SCH (08:38)
[2020-08-03] MEDS: PARoxetine 20MG TABLET PO SCH (08:38)
[2020-08-03] MEDS: MULTIVITAMINS/MINERALS THERAP 1 TAB PO SCH (08:38)
[2020-08-03] MEDS: VITAMIN D 1,000 INTERNATIONAL UNITS TABLET PO SCH (08:38)
[2020-08-03] MEDS: OCUVITE 1 TAB PO SCH (08:38)
[2020-08-03] MEDS: GABAPENTIN 400MG CAP PO SCH ×2 (08:38→15:07)
[2020-08-03] MEDS: FAMOTIDINE 20 MG TAB PO SCH (08:39)
[2020-08-03] MEDS: NORCO, ANEXSIA 5/325MG TABLET (HYDROcodone/ACETAMINOPHEN) PO SCH ×2 (08:39→20:37)
[2020-08-03] MEDS: ROSUVASTATIN 10 MG TAB (CRESTOR) PO SCH (08:39)
[2020-08-03] MEDS: COLESEVELAM 625 MG TAB (WELCHOL) PO SCH (08:39)
[2020-08-03] MEDS: FIDAXOMICIN 200 MG TAB (DIFICID) PO SCH ×2 (08:39→20:36)
[2020-08-03] MEDS: POTASSIUM CHLORIDE 10 MEQ SR TABLET PO SCH (08:40)
[2020-08-03] MEDS: bisoproloL fumarate 10 MG TAB PO SCH (08:44)
--- NOTE | 2020-08-03 09:30 | IPNPDOC ---
Text Note Date of Service The patient was seen on 08/03/20. NOTE Subjective: Patient is an 84-year-old female who presented to the emergency room with complaints of diarrhea. Patient has had a long-standing history of r ecurrent C. difficile colitis. Patient was initially diagnosed with C. 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 Patient has been experiencing diarrhea on and off since that point and has tried several different therapies that have been unsuccessful. Patient was recently on a vancomycin pulse dose. After completion of which did have resolution of her diarrhea. However, had a recurrence and was admitted to the hospital on 07/27. Patient was given Dificid and had improvement of her symptoms. Patient was subsequently discharged on 07/29 after reporting resolution of her symptoms. Patient was advised to continue with Dificid for 7 more days. She has presented to the emergency room again and was admitted for failure of Dificid. Gastroenterology was called on consultation. Patient was seen and examined at the bedside. Patient reports that her diarrhea has resolved. She reported a single small bowel movement yesterday that she described as a smear. Denies any chest pain, shortness of breath or palpitations. Objective: Vitals (See below) General: Patient is lying in bed, reporting that she had difficulty sleeping at night, is oriented to person, place and time HEENT: NC, AT CVS: +S1S2 Lungs: Fair air entry bilaterally without evidence of wheezing, crackles or rhonchi on auscultation Abdomen: Again abdomen remains soft without any appreciated tenderness or distention Extremities: No edema Imaging: CT abdomen / pelvis 07/31: The duodenum is diffusely thickened and moderately dilated, compatible with duodenitis. Proximal jejunum demonstrates diffuse mucosal fold prominence and mild diffuse dilatation, possibly representing small bowel enteritis in this region. There is no evidence of a discrete transition point of small bowel obstruction. There is no free air or free fluid. Assessment and Plan: Recurrent diarrhea - likely 2/2 C. diff colitis, possibly 2/2 enteritis - History of Multiple C. difficile episodes; failed stool transplant (2009) - Presented again to the ER with worsening diarrhea associated with nausea and vomiting - Patient has reported resolution of her diarrhea - Hemodynamically stable and afebrile - s/p Leukocytosis - Imaging reviewed above - c/w Fidaxomicin (Day #7) - c/w Zofran / Colesevelam / Metamucil - c/w Gentle IV fluid hydration - Gastroenterology on consultation; Will discuss with GI about scheduled EGD/Colonoscopy/Stool transplant on Tuesday s/p Hypomagnesemia HTN - BP well controlled - c/w Bisoprolol Hx of PE - Currently off of anticoagulation Impaired fasting glucose - Diet controlled DLP - c/w Rosuvastatin LATANYA - Patient is not on CPAP Iron deficiency anemia - History of GI bleeds - c/w Ferrous sulfate Dementia, mild - Patient lives with her - Daughter visits frequently Vitamin D deficiency - c/w supplementation Osteoporosis Chronic back pain - c/w [place], Cyclobenzaprine, Gabapentin Depression / Insomnia - c/w Paroxetine - c/w Ramelteon QHS PRN / Will add Trazodone GERD - c/w Famotidine; will hold PPI DVT prophylaxis - c/w Heparin Disposition: - EGD / Colonoscopy / Stool transplant on Tuesday VS,Fishbone, I+O VS, Fishbone, I+O Laboratory Tests 08/03/20 07:44 Vital Signs Date Time Temp Pulse Resp B/P (MAP) Pulse Ox O2 Delivery O2 Flow Rate FiO2 08/03/20 09:09 18 08/03/20 08:44 93 164/88 08/03/20 06:00 97.8 94 Room Air I&O- Last 24 Hours up to 6 AM 08/03/20 06:00 Intake Total 2010 ml Output Total 1650 ml Balance 360 ml NATHANIEL DE ANDA MD August 03, 2020 09:30
[2020-08-03 14:00] VITALS: BP 156/82
[2020-08-03] MEDS: CHOLESTYRAMINE 4 GM PWD PKT PO SCH (20:36)
[2020-08-03] MEDS: RAMELTEON 8 MG TAB (ROZEREM) PO PRN (20:36)
[2020-08-03] MEDS: CYCLOBENZAPRINE 5MG TABLET PO SCH (20:36)
[2020-08-03] MEDS: traZODone 25MG PER 1/2 TABLET PO SCH (20:38)
[2020-08-03 22:00] VITALS: BP_SYST 134; BP_SYST 171; BP_DIAS 76; BP_DIAS 87
[2020-08-04] MEDS: HEPARIN SOD (PORCINE) 5000UNITS/ML 1ML VIAL/SYRINGE SC SCH ×3 (05:30→22:39)
[2020-08-04 06:00] VITALS: BP 117/82
[2020-08-04 07:54] LABS: BASO % 0.6 % (0.0-1.0); EOS # 0.2 10^3/uL (0.0-0.5); EOS % 2.8 % (0.0-3.0); HEMATOCRIT 34.9 % (36.0-47.0); HEMOGLOBIN 11.3 g/dl (12.0-15.5); LYMPH # 2.1 10^3/uL (1.5-5.0); LYMPH % 32.5 % (24.0-44.0); MEAN CORPUSCULAR HEMOGLOBIN 31.2 pg (27.0-33.0); MEAN CORPUSCULAR HGB CONC 32.4 g/dl (32.0-36.5); MEAN CORPUSCULAR VOLUME 96.4 fl (80.0-96.0); MONO # 0.6 10^3/uL (0.0-0.8); MONO % 9.6 % (2.0-8.0); NEUTROPHILS # 3.4 10^3/uL (1.5-8.5); NEUTROPHILS % 53.4 % (36.0-66.0); PLATELET COUNT, AUTOMATED 285 10^3/uL (150-450); RED BLOOD COUNT 3.62 10^6/uL (4.00-5.40); WHITE BLOOD COUNT 6.4 10^3/uL (4.0-10.0)
[2020-08-04 08:06] LABS: BLOOD UREA NITROGEN 8 MG/DL (7-18); CALCIUM LEVEL 9.4 MG/DL (8.8-10.2); CARBON DIOXIDE LEVEL 23 MEQ/L (21-32); CHLORIDE LEVEL 111 MEQ/L (98-107); CREATININE FOR GFR 0.49 MG/DL (0.55-1.30); GLOMERULAR FILTRATION RATE > 60.0 (>32); GLUCOSE, FASTING 100 MG/DL (70-100); MAGNESIUM LEVEL 1.8 MG/DL (1.8-2.4); POTASSIUM SERUM 3.6 MEQ/L (3.5-5.1); SODIUM LEVEL 142 MEQ/L (136-145)
[2020-08-04] MEDS: METAMUCIL (PSYLLIUM) PACKET PO SCH (08:50)
[2020-08-04] MEDS: GABAPENTIN 400MG CAP PO SCH ×2 (08:50→15:27)
[2020-08-04] MEDS: OCUVITE 1 TAB PO SCH (08:51)
[2020-08-04] MEDS: NORCO, ANEXSIA 5/325MG TABLET (HYDROcodone/ACETAMINOPHEN) PO SCH ×2 (08:51→20:28)
[2020-08-04] MEDS: FAMOTIDINE 20 MG TAB PO SCH (08:51)
[2020-08-04] MEDS: MULTIVITAMINS/MINERALS THERAP 1 TAB PO SCH (08:51)
[2020-08-04] MEDS: FERROUS SULFATE 325MG TAB PO SCH (08:51)
[2020-08-04] MEDS: FIDAXOMICIN 200 MG TAB (DIFICID) PO SCH ×2 (08:51→20:28)
[2020-08-04] MEDS: PARoxetine 20MG TABLET PO SCH (08:52)
[2020-08-04] MEDS: POTASSIUM CHLORIDE 10 MEQ SR TABLET PO SCH (08:52)
[2020-08-04] MEDS: ROSUVASTATIN 10 MG TAB (CRESTOR) PO SCH (08:52)
[2020-08-04] MEDS: VITAMIN D 1,000 INTERNATIONAL UNITS TABLET PO SCH (08:52)
[2020-08-04] MEDS: bisoproloL fumarate 10 MG TAB PO SCH (08:54)
[2020-08-04] MEDS: CHOLESTYRAMINE 4 GM PWD PKT PO SCH ×2 (09:00→22:39)
--- NOTE | 2020-08-04 10:10 | IPNPDOC ---
Text Note Date of Service The patient was seen on 08/04/20. NOTE Subjective: Patient is an 84-year-old female who presented to the emergency room with complaints of diarrhea. Patient has had a long-standing history of recurrent C. difficile colitis. Patient was initially diagnosed with C. 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 Patient has been experiencing diarrhea on and off since that point and has tried several different therapies that have been unsuccessful. Patient was recently on a vancomycin pulse dose. After completion of which did have resolution of her diarrhea. However, had a recurrence and was admitted to the hospital on 07/27. Patient was given Dificid and had improvement of her symptoms. Patient was subsequently discharged on 07/29 after reporting resolution of her symptoms. Patient was advised to continue with Dificid for 7 more days. She has presented to the emergency room again and was admitted for failure of Dificid. Gastroenterology was called on consultation. Patient was seen and examined at the bedside. Patient has only had 2 bowel movements yesterday, both of which were formed stool. No diarrhea was reported. Patient is not experiencing any nausea, vomiting or abdominal pain. Denies any chest pain, shortness breath or palpitations. Patient reports that she has had difficulty sleeping at night. However, upon discussion with nurse patient was sleeping all night. Objective: Vitals (See below) General: Patient is sitting up in bed, does not appear to be in any distress, is comfortable, oriented to person, place and time HEENT: Normocephalic and atraumatic CVS: +S1S2 Lungs: Lungs appear to have fair air entry bilaterally without any auscultated evidence of wheezing, crackles or rhonchi Abdomen: Still her abdomen remains soft, nondistended and nontender Extremities: Lower extremities are without any evidence of edema Imaging: CT abdomen / pelvis 07/31: The duodenum is diffusely thickened and moderately dilated, compatible with duodenitis. Proximal jejunum demonstrates diffuse mucosal fold prominence and mild diffuse dilatation, possibly representing small bowel enteritis in this region. There is no evidence of a discrete transition point of small bowel obstruction. There is no free air or free fluid. Assessment and Plan: Recurrent diarrhea - likely 2/2 C. diff colitis, possibly 2/2 enteritis - History of Multiple C. difficile episodes; failed stool transplant (2009) - Presented again to the ER with worsening diarrhea associated with nausea and vomiting - Patient's diarrhea appears to have completely resolved and currently she is having formed bowel movements without any incontinence - Has remained hemodynamically stable and afebrile throughout this hospitalization - s/p Leukocytosis - Imaging reviewed above - c/w Fidaxomicin (Day #8) - c/w Zofran / Colesevelam / Metamucil - c/w Gentle IV fluid hydration - Gastroenterology on consultation; will discuss with GI about pursuing EGD/colonoscopy as an outpatient s/p Hypomagnesemia HTN - BP well controlled - c/w Bisoprolol Hx of PE - Currently off of anticoagulation Impaired fasting glucose - Diet controlled DLP - c/w Rosuvastatin LATANYA - Patient is not on CPAP Iron deficiency anemia - History of GI bleeds - c/w Ferrous sulfate Dementia, mild - Patient lives with her - Daughter visits frequently Vitamin D deficiency - c/w supplementation Osteoporosis Chronic back pain - c/w [place], Cyclobenzaprine, Gabapentin Depression / Insomnia - c/w Paroxetine - c/w Ramelteon / Trazodone GERD - c/w Famotidine; will hold PPI DVT prophylaxis - c/w Heparin Disposition: - Awaiting input from gastroenterology VSMatthias, I+O VSMatthias I+O Laboratory Tests 08/04/20 06:43 Vital Signs Date Time Temp Pulse Resp B/P (MAP) Pulse Ox O2 Delivery O2 Flow Rate FiO2 08/04/20 08:54 93 152/81 08/04/20 08:51 16 08/04/20 06:00 98.7 95 Room Air I&O- Last 24 Hours up to 6 AM 08/04/20 06:00 Intake Total 1510 ml Output Total 1150 ml Balance 360 ml NATHANIEL DE ANDA MD August 04, 2020 10:10
[2020-08-04 14:00] VITALS: BP 131/62
[2020-08-04] MEDS: ACETAMINOPHEN TAB 650MG DOSE (2X325MG) PO PRN (15:31)
[2020-08-04] MEDS: CYCLOBENZAPRINE 5MG TABLET PO SCH (20:28)
[2020-08-04] MEDS: RAMELTEON 8 MG TAB (ROZEREM) PO PRN (20:29)
[2020-08-04] MEDS: traZODone 25MG PER 1/2 TABLET PO SCH (20:29)
[2020-08-04] MEDS ORDERED: GOLYTELY SOLN 4000 ML BTL PO ONE (21:00)
[2020-08-04 22:00] VITALS: BP 138/63
[2020-08-05] MEDS ORDERED: traZODone 25MG PER 1/2 TABLET PO ONE (00:10)
[2020-08-05 06:00] VITALS: BP 144/76
[2020-08-05] MEDS: HEPARIN SOD (PORCINE) 5000UNITS/ML 1ML VIAL/SYRINGE SC SCH ×3 (06:14→22:00)
[2020-08-05 06:21] LABS: BASO % 0.5 % (0.0-1.0); EOS # 0.2 10^3/uL (0.0-0.5); EOS % 2.5 % (0.0-3.0); HEMATOCRIT 36.1 % (36.0-47.0); HEMOGLOBIN 11.6 g/dl (12.0-15.5); LYMPH # 2.2 10^3/uL (1.5-5.0); LYMPH % 26.3 % (24.0-44.0); MEAN CORPUSCULAR HGB CONC 32.1 g/dl (32.0-36.5); MEAN CORPUSCULAR VOLUME 96.5 fl (80.0-96.0); MONO # 0.8 10^3/uL (0.0-0.8); MONO % 9.2 % (2.0-8.0); NEUTROPHILS # 5.1 10^3/uL (1.5-8.5); NEUTROPHILS % 60.7 % (36.0-66.0); PLATELET COUNT, AUTOMATED 285 10^3/uL (150-450); RED BLOOD COUNT 3.74 10^6/uL (4.00-5.40); WHITE BLOOD COUNT 8.4 10^3/uL (4.0-10.0)
[2020-08-05 06:50] LABS: BLOOD UREA NITROGEN 9 MG/DL (7-18); CALCIUM LEVEL 9.8 MG/DL (8.8-10.2); CARBON DIOXIDE LEVEL 23 MEQ/L (21-32); CHLORIDE LEVEL 111 MEQ/L (98-107); CREATININE FOR GFR 0.52 MG/DL (0.55-1.30); GLOMERULAR FILTRATION RATE > 60.0 (>32); GLUCOSE, FASTING 104 MG/DL (70-100); MAGNESIUM LEVEL 1.9 MG/DL (1.8-2.4); POTASSIUM SERUM 3.7 MEQ/L (3.5-5.1); SODIUM LEVEL 142 MEQ/L (136-145)
[2020-08-05] MEDS: GABAPENTIN 400MG CAP PO SCH ×2 (08:00→17:52)
[2020-08-05] MEDS: MULTIVITAMINS/MINERALS THERAP 1 TAB PO SCH (09:00)
[2020-08-05] MEDS: OCUVITE 1 TAB PO SCH (09:00)
[2020-08-05] MEDS: VITAMIN D 1,000 INTERNATIONAL UNITS TABLET PO SCH (09:00)
[2020-08-05] MEDS: METAMUCIL (PSYLLIUM) PACKET PO SCH (09:00)
[2020-08-05] MEDS: bisoproloL fumarate 10 MG TAB PO SCH (09:00)
[2020-08-05] MEDS: CHOLESTYRAMINE 4 GM PWD PKT PO SCH ×2 (10:00→22:00)
--- NOTE | 2020-08-05 11:18 | IPNPDOC ---
Text Note Date of Service The patient was seen on 08/05/20. NOTE Subjective: Patient seen and examined at bedside. No acute overnight events reported. Patient has no new medical complaints this morning. She states she is slowly feeling better. Objective: General: NAD, lying comfortably in bed HEENT: NC/AT Lungs: no accessory muscle use, speaking full sentences without shortness of breath Ext: no edema A/P: 84F presents for diarrhea, with long history of recurrent C. difficile colitis. Patient was initially diagnosed with C. 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 Patient has been experiencing diarrhea on and off since that point and has tried several different therapies that have been unsuccessful. Patient was recently on a vancomycin pulse dose. After completion of which did have resolution of her diarrhea. However, had a recurrence and was admitted to the hospital on 07/27. Patient was given Dificid and had improvement of her symptoms. Patient was subsequently discharged on 07/29 after reporting resolution of her symptoms. Patient was advised to continue with Dificid for 7 more days. She has presented to the emergency room again and was admitted for failure of Dificid. GI was called on consultation. #Recurrent diarrhea - likely 2/2 C. diff colitis, possibly 2/2 enteritis - History of Multiple C. difficile episodes; failed stool transplant (2009) - Presented again to the ER with worsening diarrhea associated with nausea and vomiting - Patient's diarrhea appears to have completely resolved and currently she is having formed bowel movements without any incontinence - Has remained hemodynamically stable and afebrile throughout this hospitalization - s/p Leukocytosis - Imaging reviewed above - c/w Fidaxomicin (Day #9) - c/w Zofran / Colesevelam / Metamucil - c/w Gentle IV fluid hydration - Gastroenterology on consultation - plan for colonoscopy today #s/p Hypomagnesemia #HTN - BP well controlled - c/w Bisoprolol #Hx of PE - Currently off of anticoagulation #Impaired fasting glucose - Diet controlled #DLP - c/w Rosuvastatin #LATANYA - Patient is not on CPAP #Iron deficiency anemia - History of GI bleeds - c/w Ferrous sulfate #Dementia, mild - Patient lives with her - Daughter visits frequently #Vitamin D deficiency - c/w supplementation #Osteoporosis #Chronic back pain - c/w [place], Cyclobenzaprine, Gabapentin #Depression / Insomnia - c/w Paroxetine - c/w Ramelteon / Trazodone #GERD - c/w Famotidine; will hold PPI #DVT prophylaxis - c/w Heparin VS,Fishbone, I+O VS, Fishbone, I+O Laboratory Tests 08/05/20 05:47 Vital Signs Date Time Temp Pulse Resp B/P (MAP) Pulse Ox O2 Delivery O2 Flow Rate FiO2 08/05/20 06:00 96.8 82 20 144/76 (98) 95 Room Air I&O- Last 24 Hours up to 6 AM 08/05/20 06:00 Intake Total 5790 ml Output Total 4500 ml Balance 1290 ml ARGENIS HOLMAN MD August 05, 2020 11:18
[2020-08-05] MEDS: FIDAXOMICIN 200 MG TAB (DIFICID) PO SCH ×2 (12:19→22:00)
[2020-08-05] MEDS: NORCO, ANEXSIA 5/325MG TABLET (HYDROcodone/ACETAMINOPHEN) PO SCH ×2 (12:19→22:01)
[2020-08-05] MEDS: POTASSIUM CHLORIDE 10 MEQ SR TABLET PO SCH (12:19)
[2020-08-05] MEDS: PARoxetine 20MG TABLET PO SCH (12:19)
[2020-08-05] MEDS: FAMOTIDINE 20 MG TAB PO SCH (12:19)
[2020-08-05] MEDS: ROSUVASTATIN 10 MG TAB (CRESTOR) PO SCH (12:19)
[2020-08-05 14:00] VITALS: BP 141/86
[2020-08-05] MEDS ORDERED: LIDOCAINE 2% 100MG/5ML SDV (FOR ANES.) As Ordered ONE (15:50)
[2020-08-05] MEDS ORDERED: propofoL 200 MG/20 ML VIAL As Ordered ONE (15:50)
--- NOTE | 2020-08-05 16:05 | ROOR ---
Patient Name: Eva Scherer Procedure Date: 08/05/2020 3:16 PM Date of : 1935 Age: 84 Room: [facility] Gender: Female Note Status: Finalized Procedure: Colonoscopy Indications: Chronic diarrhea Providers: Edinson Taylor MD Referring MD: Jorge Fischer MD Requesting Provider: Medicines: Monitored Anesthesia Care Complications: No immediate complications. Procedure: Pre-Anesthesia Assessment: - Prior to the procedure, a History and Physical was performed, and patient medications and allergies were reviewed. The patient is competent. The risks and benefits of the procedure and the sedation options and risks were discussed with the patient. All questions were answered and informed consent was obtained. Patient identification and proposed procedure were verified by the physician, the nurse and the anesthesiologist in the procedure room. Mental Status Examination: alert and oriented. Airway Examination: normal oropharyngeal airway and neck mobility. Respiratory Examination: clear to auscultation. CV Examination: normal. Prophylactic Antibiotics: The patient does not require prophylactic antibiotics. Prior Anticoagulants: The patient has taken no previous anticoagulant or antiplatelet agents. ASA Grade Assessment: II - A patient with mild systemic disease. After reviewing the risks and benefits, the patient was deemed in satisfactory condition to undergo the procedure. The anesthesia plan was to use monitored anesthesia care (MAC). Immediately prior to administration of medications, the patient was re-assessed for adequacy to receive sedatives. The heart rate, respiratory rate, oxygen saturations, blood pressure, adequacy of pulmonary ventilation, and response to care were monitored throughout the procedure. The physical status of the patient was re-assessed after the procedure. The Colonoscope was introduced through the anus and advanced to the terminal ileum, with identification of the appendiceal orifice and IC valve. The colonoscopy was performed without difficulty. The patient tolerated the procedure well. The quality of the bowel preparation was good. The terminal ileum, ileocecal valve, appendiceal orifice, and rectum were photographed. Scope insertion time was 2 minutes. Scope withdrawal time was 8 minutes. The total duration of the procedure was 10 minutes. Findings: The perianal and digital rectal examinations were normal. The terminal ileum appeared normal. Multiple small and large-mouthed diverticula were found from sigmoid to ascending colon. There was no evidence of diverticular bleeding. External and internal hemorrhoids were found during endoscopy. The hemorrhoids were medium-sized. Normal mucosa was found from sigmoid to cecum. Biopsies for histology were taken with a cold forceps from the right colon, left colon and rectosigmoid colon for evaluation of microscopic colitis. Verification of patient identification for the specimen was done by the physician and nurse using the patient's name, date and medical record number. Estimated blood loss was minimal. Impression: - The examined portion of the ileum was normal. - Severe diverticulosis from sigmoid to ascending colon. There was no evidence of diverticular bleeding. - External and internal hemorrhoids. - Normal mucosa from sigmoid to cecum. Biopsied. Recommendation: - Patient has a contact number available for emergencies. The signs and symptoms of potential delayed complications were discussed with the patient. Return to normal activities tomorrow. Written discharge instructions were provided to the patient. - High fiber diet. - Continue present medications. - Use Questran at 1 scoop (4 grams) PO daily. - Use original regular Metamucil one tablespoon PO BID. - Await pathology results. - Repeat colonoscopy is not recommended due to current age (66 years or older) for screening purposes and depending on clinical and functional status. - Telephone GI clinic for pathology results in 2 weeks. - Return to GI clinic if persistent symptoms or new symptoms. Procedure Code(s): --- Professional --- 41905, Colonoscopy, flexible; with biopsy, single or multiple Diagnosis Code(s): --- Professional --- K64.8, Other hemorrhoids K52.9, Noninfective gastroenteritis and colitis, unspecified K57.30, Diverticulosis of large intestine without perforation or abscess without bleeding CPT copyright 2019 [employer]. All rights reserved. The codes documented in this report are preliminary and upon customer sales specialist review may be revised to meet current compliance requirements. Edinson Taylor MD Edinson Taylor MD 08/05/2020 4:04:53 PM Electronically signed by Edinson Taylor MD Number of Addenda: 0 Note Initiated On: 08/05/2020 3:16 PM Estimated Blood Loss: Estimated blood loss was minimal.
[2020-08-05 16:30] VITALS: BP 150/79
[2020-08-05 22:00] VITALS: BP 126/84
[2020-08-05] MEDS: traZODone 50 MG TAB PO SCH (22:00)
[2020-08-05] MEDS: CYCLOBENZAPRINE 5MG TABLET PO SCH (22:00)
[2020-08-06 06:00] VITALS: BP 126/81
[2020-08-06] MEDS: HEPARIN SOD (PORCINE) 5000UNITS/ML 1ML VIAL/SYRINGE SC SCH ×3 (06:04→21:11)
[2020-08-06 06:15] LABS: BASO % 0.4 % (0.0-1.0); EOS # 0.2 10^3/uL (0.0-0.5); EOS % 2.3 % (0.0-3.0); HEMATOCRIT 37.2 % (36.0-47.0); HEMOGLOBIN 11.3 g/dl (12.0-15.5); LYMPH # 2.4 10^3/uL (1.5-5.0); LYMPH % 34.3 % (24.0-44.0); MEAN CORPUSCULAR HGB CONC 30.4 g/dl (32.0-36.5); MEAN CORPUSCULAR VOLUME 98.7 fl (80.0-96.0); MONO # 0.6 10^3/uL (0.0-0.8); NEUTROPHILS # 3.7 10^3/uL (1.5-8.5); NEUTROPHILS % 53.3 % (36.0-66.0); PLATELET COUNT, AUTOMATED 271 10^3/uL (150-450); RED BLOOD COUNT 3.77 10^6/uL (4.00-5.40)
[2020-08-06 06:32] LABS: BLOOD UREA NITROGEN 12 MG/DL (7-18); CALCIUM LEVEL 9.5 MG/DL (8.8-10.2); CARBON DIOXIDE LEVEL 23 MEQ/L (21-32); CHLORIDE LEVEL 114 MEQ/L (98-107); CREATININE FOR GFR 0.63 MG/DL (0.55-1.30); GLOMERULAR FILTRATION RATE > 60.0 (>32); GLUCOSE, FASTING 108 MG/DL (70-100); MAGNESIUM LEVEL 1.8 MG/DL (1.8-2.4); POTASSIUM SERUM 3.5 MEQ/L (3.5-5.1); SODIUM LEVEL 142 MEQ/L (136-145)
[2020-08-06] MEDS: FERROUS SULFATE 325MG TAB PO SCH (08:30)
[2020-08-06] MEDS: ROSUVASTATIN 10 MG TAB (CRESTOR) PO SCH (08:30)
[2020-08-06] MEDS: FAMOTIDINE 20 MG TAB PO SCH (08:30)
[2020-08-06] MEDS: GABAPENTIN 400MG CAP PO SCH ×2 (08:30→16:56)
[2020-08-06] MEDS: OCUVITE 1 TAB PO SCH (08:30)
[2020-08-06] MEDS: PARoxetine 20MG TABLET PO SCH (08:30)
[2020-08-06] MEDS: NORCO, ANEXSIA 5/325MG TABLET (HYDROcodone/ACETAMINOPHEN) PO SCH ×2 (08:31→21:10)
[2020-08-06] MEDS: POTASSIUM CHLORIDE 10 MEQ SR TABLET PO SCH (08:31)
[2020-08-06] MEDS: bisoproloL fumarate 10 MG TAB PO SCH (08:31)
[2020-08-06] MEDS: VITAMIN D 1,000 INTERNATIONAL UNITS TABLET PO SCH (08:31)
[2020-08-06] MEDS: METAMUCIL (PSYLLIUM) PACKET PO SCH (08:32)
[2020-08-06] MEDS: CHOLESTYRAMINE 4 GM PWD PKT PO SCH ×3 (08:32→21:10)
[2020-08-06] MEDS: MULTIVITAMINS/MINERALS THERAP 1 TAB PO SCH (08:32)
[2020-08-06] MEDS: FIDAXOMICIN 200 MG TAB (DIFICID) PO SCH (08:33)
--- NOTE | 2020-08-06 09:49 | IPNPDOC ---
Text Note Date of Service The patient was seen on 08/06/20. NOTE Subjective: Patient seen and examined at bedside. No acute overnight events reported. Patient has no new medical complaints this morning. She states she is feeling better. 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 Patient was initially diagnosed with C. 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 Patient has been experiencing diarrhea on and off since that point and has tried several different therapies that have been unsuccessful. Patient was recently on a vancomycin pulse dose. After completion of which did have resolution of her diarrhea. However, had a recurrence and was admitted to the hospital on 07/27. Patient was given Dificid and had improvement of her symptoms. Patient was subsequently discharged on 07/29 after reporting resolution of her symptoms. Patient was advised to continue with Dificid for 7 more days. She has presented to the emergency room again and was admitted for failure of Dificid. GI was called on consultation. #Recurrent diarrhea - likely 2/2 C. diff colitis, possibly 2/2 enteritis - History of Multiple C. difficile episodes; failed stool transplant (2009) - Presented again to the ER with worsening diarrhea associated with nausea and vomiting - Patient's diarrhea appears to have completely resolved and currently she is having formed bowel movements without any incontinence - Has remained hemodynamically stable and afebrile throughout this hospitalization - s/p Leukocytosis - Imaging reviewed above - c/w Fidaxomicin (Day #10) - c/w Zofran / Colesevelam / Metamucil - s/p colonoscopy 08/05/20 - ID c/s pending #s/p Hypomagnesemia #HTN - BP well controlled - c/w Bisoprolol #Hx of PE - Currently off of anticoagulation #Impaired fasting glucose - Diet controlled #DLP - c/w Rosuvastatin #LATANYA - Patient is not on CPAP #Iron deficiency anemia - History of GI bleeds - c/w Ferrous sulfate #Dementia, mild - Patient lives with her - Daughter visits frequently #Vitamin D deficiency - c/w supplementation #Osteoporosis #Chronic back pain - c/w [place], Cyclobenzaprine, Gabapentin #Depression / Insomnia - c/w Paroxetine - c/w Ramelteon / Trazodone #GERD - c/w Famotidine; will hold PPI #DVT prophylaxis - c/w Heparin Dispo: continue PT, discharge planning in progress, plan for discharge to infusion unit VS,Fishbone, I+O VS, Fishbone, I+O Laboratory Tests 08/06/20 05:50 Vital Signs Date Time Temp Pulse Resp B/P (MAP) Pulse Ox O2 Delivery O2 Flow Rate FiO2 08/06/20 08:31 18 Room Air 08/06/20 08:31 111 126/81 08/06/20 06:00 98.3 94 I&O- Last 24 Hours up to 6 AM 08/06/20 06:00 Intake Total 150 ml Output Total 200 ml Balance -50 ml ARGENIS HOLMAN MD August 06, 2020 09:49
--- NOTE | 2020-08-06 10:14 | CR ---
CONSULTATION DATE: 08/05/2020 Asked to consult by Dr. Edward for evaluation of recurrent Clostridium (C) difficile colitis. HISTORY OF PRESENT ILLNESS: Mrs. Middleton is an 84-year-old female who has a history of recurrent C. difficile colitis. Initial episode documented at [facility] was in June 2016. Patient had another episode 05/24/2019 and 04/11/2020. She was hospitalized on July 26 with a white count of 11,000. She had a positive C. difficile on the gastrointestinal (GI) panel. She was started on Dificid that she received for 3 days and discharged home. The patient was home for less than 48 hours. Was readmitted on July 31 with a white count of 11.6 and continued on fidaxomicin. The patient has had Dificid for the past 10 days between both admissions, and she has had no fever. When she was admitted she had vomiting, but this has resolved. She has had no fever documented. She had a colonoscopy today, which only showed diverticulosis but no pseudomembranous colitis. She has a history of stool transplantation was done in [place] by Dr. Taylor. They are not sure when that was done, but after 2014. She was told not to use proton pump inhibitors (PPIs), and these were discontinued by her primary care provider, but since she has been in the hospital she is on pantoprazole twice a day. She uses Pepcid for reflux, and that does not happen very often. She has no abdominal pain. She has some weakness but otherwise feeling well. Her two daughters are in the room. REVIEW OF SYSTEMS: She had nausea and vomiting on admission. Diarrhea and abdominal pain have resolved. She also complains of insomnia and likes the medication we have been giving her here. She has chronic back pain and neck pain. ALLERGIES: PENICILLIN, ASPIRIN, ATORVASTATIN, RIVAROXABAN. MEDICATIONS: - Tylenol 650 mg every 4 as needed - Vicodin two tablets by mouth twice a day - bisoprolol 10 mg by mouth daily - cholestyramine 4 grams by mouth twice a day - cyclobenzaprine 5 mg by mouth every night - magnesium sulfate 325 mg by mouth every other day - fidaxomicin 200 mg by mouth twice a day - gabapentin 400 mg by mouth twice a day - heparin subcutaneous 5000 units every 8 hours - multivitamin one tablet daily - Ocuvite one tablet by mouth daily - Zofran 4 mg intravenous (IV) every 6 as needed - paroxetine 20 mg by mouth daily - Metamucil one packet by mouth daily - Rozerem 8 mg by mouth every night - rosuvastatin 40 mg by mouth daily - trazodone as needed - vitamin D 2000 units by mouth daily LABORATORY DATA: White count 8.4, hemoglobin 11.6, hematocrit 36.1, platelets 285, 60% neutrophils, 26% leukocytosis, 9% monocytes. Sodium 142, potassium 3.7, chloride 111, bicarbonate 23, BUN 9, creatinine 0.52, glucose 104, calcium 9.8, magnesium 1.9. SARS-CoV-2, influenza A and B, RSV are negative. C. difficile was positive on a GI panel done on July 26. CT abdomen and pelvis done on 07/31/2020 showed duodenum diffusely thickened and moderately dilated, compatible with duodenitis. Proximal jejunum demonstrated diffuse mucosal fold prominence and mild diffuse dilatation, possible a small-bowel enteritis. No evidence of obstruction and no free air. Prior hysterectomy. PAST MEDICAL HISTORY: Significant for: 1. Recurrent urinary tract infection. 2. 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 3. Hypertension. 4. History of pulmonary embolism. 5. Impaired glucose tolerance. 6. Dyslipidemia. 7. Obstructive sleep apnea, not on continuous positive airway pressure (CPAP). 8. Iron deficiency anemia. 9. History of GI bleed but colonoscopy and endoscopy done in 2018 found a small colon ulcer. 10. Mild dementia. 11. Vitamin D deficiency. 12. Osteoporosis. 13. 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 14. Depression. 15. Insomnia. PAST SURGICAL HISTORY: 1. Right total knee arthroplasty. 2. Neck surgery and back surgery in [place]. 3. Melanoma excision from the back with a skin graft from the left thigh. 4. Hysterectomy. 5. Left ring and pinky finger amputation. 6. Sinus surgery. 7. Bladder suspension. 8. Cholecystectomy. 9. Carpal tunnel release. FAMILY HISTORY: Mother with a history of breast cancer. Father with alcoholic liver disease. PHYSICAL EXAMINATION: A pleasant, elderly female in no acute distress. Temperature is 97.4, pulse 81, respirations 17, blood pressure 150/79, oxygen saturation 94% on room air. HEART: Normal S1, S2. No murmurs, rubs, or gallops. LUNGS: Clear. No wheezes, rales, or rhonchi. ABDOMEN: Soft, nontender. No hepatosplenomegaly. BACK: No costovertebral angle (CVA) or lumbosacral tenderness. EXTREMITIES: No clubbing, cyanosis, or edema. No rashes. Thickened toenails. MUSCULOSKELETAL: Right total knee replacement scar well healed. Lumbar scar well healed. Range of motion of upper and lower extremities normal. IMPRESSION: This is an 84-year-old female with recurrent Clostridium (C) difficile colitis, at least four different documented episodes in the past 4 years. Stool transplantation by Dr. Taylor in the past. Vancomycin taper in March, done by Dr. Taylor. This admission she was treated with fidaxomicin for the past 10 days, and that has worked. Colonoscopy did not show pseudomembranes. Patient is at high risk of recurrent C. difficile due to her previous history as well as use of H2 aileen/PPIs in the past. These have been discontinued. I would definitively recommend using intravenous (IV) bezlotoxumab to prevent any further recurrences. PLAN: 1. Discontinue famotidine. Use as needed for reflux. 2. Do not use PPIs. 3. IV Zinplava. Prior authorization for outpatient use. Patient will receive 800 mg times one dose at the infusion unit after discharge. 4. Continue cholestyramine for bulking agent. 5. I would suggest fidaxomicin every other day for the next 20 days. Patient has a large supply at home. She has finished a twice a day dosing from July 26 to August 05, and she would definitely benefit from a fidaxomicin taper at every other day. Case has been discussed with Dr. Taylor. [facility]
[2020-08-06 14:00] VITALS: BP 130/68
[2020-08-06] MEDS: traZODone 50 MG TAB PO SCH (21:09)
[2020-08-06] MEDS: CYCLOBENZAPRINE 5MG TABLET PO SCH (21:09)
[2020-08-06 22:00] VITALS: BP 131/68
[2020-08-07] MEDS: HEPARIN SOD (PORCINE) 5000UNITS/ML 1ML VIAL/SYRINGE SC SCH ×3 (05:26→21:30)
[2020-08-07 06:00] VITALS: BP 137/72
[2020-08-07 06:22] LABS: BASO % 0.5 % (0.0-1.0); EOS # 0.2 10^3/uL (0.0-0.5); EOS % 2.2 % (0.0-3.0); HEMATOCRIT 36.5 % (36.0-47.0); HEMOGLOBIN 11.4 g/dl (12.0-15.5); LYMPH # 2.6 10^3/uL (1.5-5.0); LYMPH % 29.4 % (24.0-44.0); MEAN CORPUSCULAR HGB CONC 31.2 g/dl (32.0-36.5); MEAN CORPUSCULAR VOLUME 99.2 fl (80.0-96.0); MONO # 0.7 10^3/uL (0.0-0.8); MONO % 8.1 % (2.0-8.0); NEUTROPHILS # 5.1 10^3/uL (1.5-8.5); NEUTROPHILS % 58.9 % (36.0-66.0); PLATELET COUNT, AUTOMATED 281 10^3/uL (150-450); RED BLOOD COUNT 3.68 10^6/uL (4.00-5.40); WHITE BLOOD COUNT 8.7 10^3/uL (4.0-10.0)
[2020-08-07 06:44] LABS: BLOOD UREA NITROGEN 12 MG/DL (7-18); CALCIUM LEVEL 9.4 MG/DL (8.8-10.2); CARBON DIOXIDE LEVEL 23 MEQ/L (21-32); CHLORIDE LEVEL 112 MEQ/L (98-107); CREATININE FOR GFR 0.61 MG/DL (0.55-1.30); GLOMERULAR FILTRATION RATE > 60.0 (>32); GLUCOSE, FASTING 95 MG/DL (70-100); MAGNESIUM LEVEL 1.8 MG/DL (1.8-2.4); SODIUM LEVEL 142 MEQ/L (136-145)
[2020-08-07] MEDS: METAMUCIL (PSYLLIUM) PACKET PO SCH (09:23)
[2020-08-07] MEDS: OCUVITE 1 TAB PO SCH (09:24)
[2020-08-07] MEDS: FAMOTIDINE 20 MG TAB PO SCH (09:24)
[2020-08-07] MEDS: MULTIVITAMINS/MINERALS THERAP 1 TAB PO SCH (09:24)
[2020-08-07] MEDS: ROSUVASTATIN 10 MG TAB (CRESTOR) PO SCH (09:28)
[2020-08-07] MEDS: bisoproloL fumarate 10 MG TAB PO SCH (09:28)
[2020-08-07] MEDS: POTASSIUM CHLORIDE 10 MEQ SR TABLET PO SCH (09:28)
[2020-08-07] MEDS: GABAPENTIN 400MG CAP PO SCH ×2 (09:28→15:00)
[2020-08-07] MEDS: VITAMIN D 1,000 INTERNATIONAL UNITS TABLET PO SCH (09:29)
[2020-08-07] MEDS: NORCO, ANEXSIA 5/325MG TABLET (HYDROcodone/ACETAMINOPHEN) PO SCH ×2 (09:29→21:29)
[2020-08-07] MEDS: PARoxetine 20MG TABLET PO SCH (09:29)
[2020-08-07] MEDS: CHOLESTYRAMINE 4 GM PWD PKT PO SCH ×2 (10:39→21:31)
[2020-08-07 14:00] VITALS: BP 102/63
[2020-08-07] MEDS ORDERED: CHOL4PW PO (15:05)
[2020-08-07] MEDS ORDERED: DIFI200T PO (15:05)
--- NOTE | 2020-08-07 15:11 | IPNPDOC ---
Text Note Date of Service The patient was seen on 08/07/20. NOTE Subjective: Patient seen and examined at bedside. No acute overnight events reported. Patient has no new medical complaints this morning. She states she is feeling better and is anxious to go home. 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 Patient was initially diagnosed with C. 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 Patient has been experiencing diarrhea on and off since that point and has tried several different therapies that have been unsuccessful. Patient was recently on a vancomycin pulse dose. After completion of which did have resolution of her diarrhea. However, had a recurrence and was admitted to the hospital on 07/27. Patient was given Dificid and had improvement of her symptoms. Patient was subsequently discharged on 07/29 after reporting resolution of her symptoms. Patient was advised to continue with Dificid for 7 more days. She has presented to the emergency room again and was admitted for failure of Dificid. GI was called on consultation. #Recurrent diarrhea - likely 2/2 C. diff colitis, possibly 2/2 enteritis - History of Multiple C. difficile episodes; failed stool transplant (2009) - Presented again to the ER with worsening diarrhea associated with nausea and vomiting - Patient's diarrhea appears to have completely resolved and currently she is having formed bowel movements without any incontinence - Has remained hemodynamically stable and afebrile throughout this hospitalization - s/p Leukocytosis - Imaging reviewed above - c/w Fidaxomicin (Day #10) - c/w Zofran / Colesevelam / Metamucil - s/p colonoscopy 08/05/20 - ID c/s pending #s/p Hypomagnesemia #HTN - BP well controlled - c/w Bisoprolol #Hx of PE - Currently off of anticoagulation #Impaired fasting glucose - Diet controlled #DLP - c/w Rosuvastatin #LATANYA - Patient is not on CPAP #Iron deficiency anemia - History of GI bleeds - c/w Ferrous sulfate #Dementia, mild - Patient lives with her - Daughter visits frequently #Vitamin D deficiency - c/w supplementation #Osteoporosis #Chronic back pain - c/w [place], Cyclobenzaprine, Gabapentin #Depression / Insomnia - c/w Paroxetine - c/w Ramelteon / Trazodone #GERD - c/w Famotidine; will hold PPI #DVT prophylaxis - c/w Heparin Dispo: continue PT, discharge planning in progress, plan for discharge to infusion unit VS,Fishbone, I+O VS, Fishbone, I+O Laboratory Tests 08/07/20 05:46 08/07/20 05:47 Vital Signs Date Time Temp Pulse Resp B/P (MAP) Pulse Ox O2 Delivery O2 Flow Rate FiO2 08/07/20 09:59 16 08/07/20 09:28 103 145/84 08/07/20 06:00 97.7 92 Room Air I&O- Last 24 Hours up to 6 AM 08/07/20 06:00 Intake Total 1320 ml Output Total 0 ml Balance 1320 ml ARGENIS HOLMAN MD August 07, 2020 15:11
[2020-08-07] MEDS: traZODone 50 MG TAB PO SCH (21:29)
[2020-08-07] MEDS: CYCLOBENZAPRINE 5MG TABLET PO SCH (21:29)
[2020-08-07 22:17] VITALS: BP 107/82
[2020-08-08] MEDS: HEPARIN SOD (PORCINE) 5000UNITS/ML 1ML VIAL/SYRINGE SC SCH ×2 (05:47→14:00)
[2020-08-08 06:38] VITALS: BP 133/61
[2020-08-08] MEDS: OCUVITE 1 TAB PO SCH (08:23)
[2020-08-08] MEDS: FAMOTIDINE 20 MG TAB PO SCH (08:23)
[2020-08-08] MEDS: MULTIVITAMINS/MINERALS THERAP 1 TAB PO SCH (08:23)
[2020-08-08 08:24] VITALS: BP 131/73
[2020-08-08] MEDS: ROSUVASTATIN 10 MG TAB (CRESTOR) PO SCH (08:24)
[2020-08-08] MEDS: PARoxetine 20MG TABLET PO SCH (08:24)
[2020-08-08] MEDS: METAMUCIL (PSYLLIUM) PACKET PO SCH (08:24)
[2020-08-08] MEDS: bisoproloL fumarate 10 MG TAB PO SCH (08:24)
[2020-08-08] MEDS: NORCO, ANEXSIA 5/325MG TABLET (HYDROcodone/ACETAMINOPHEN) PO SCH (08:25)
[2020-08-08] MEDS: FERROUS SULFATE 325MG TAB PO SCH (08:25)
[2020-08-08] MEDS: POTASSIUM CHLORIDE 10 MEQ SR TABLET PO SCH (08:25)
[2020-08-08] MEDS: VITAMIN D 1,000 INTERNATIONAL UNITS TABLET PO SCH (08:26)
[2020-08-08] MEDS: GABAPENTIN 400MG CAP PO SCH (08:26)
[2020-08-08] MEDS ORDERED: FIDAXOMICIN 200 MG TAB (DIFICID) PO ONE (09:00)
--- NOTE | 2020-08-08 09:29 | IPN ---
PROGRESS NOTE DATE: 08/08/2020 SUBJECTIVE: Mrs. Scherer is doing well. She denies any diarrhea today, no abdominal pain, nausea or vomiting. She is feeling well and anxious to go home. I called Christelle, her daughter, who is her caregiver and she stated that she had Dificid at home but she is not sure how many pills are in the bottle. OBJECTIVE: Abdomen is benign on exam. LABS: White count 8.7, hemoglobin 11.4, hematocrit 36.5, platelets 281, 59% neutrophils, 29% lymphocytes, 8% monocytes. Sodium 142, potassium 4, chloride 112, bicarb 23, BUN 12, creatinine 0.61, glucose 95, calcium 9.4, magnesium 1.8. ASSESSMENT: Recurrent C. difficile colitis. Finish a ten-day course of Dificid. Would recommend that she continue Dificid every other day until her prescription is finished at home. That may be for the next 20 days at the dose of 200 mg for ten days. Patient will be scheduled for outpatient IV Zinplava, monoclonal antibody to decrease the risk of recurrent C. difficile colitis. Gonzalo from [facility] has submitted prior authorization. This could be done any time in the next seven to ten days in the infusion unit. PLAN: The patient could be discharged home. IV Zinplava some time in the next seven to ten days. Dificid every other day at 200 mg dose until she finishes her prescription. Continue with probiotics and Questran 4 gm p.o. twice daily.
[2020-08-08] MEDS: CHOLESTYRAMINE 4 GM PWD PKT PO SCH (09:36)
--- NOTE | 2020-08-08 10:54 | DS.PDOC ---
Discharge Summary General Date of Admission July 31, 2020 at 16:46 Date of Discharge 08/08/20 Discharge Summary PROCEDURES PERFORMED DURING STAY: colonoscopy DISCHARGE DIAGNOSES: #Recurrent diarrhea/recurrent C. diff colitis #s/p Hypomagnesemia #HTN #Hx of PE/off of anticoagulation #Impaired fasting glucose #DLP #LATANYA not on CPAP #Iron deficiency anemia #Dementia, mild #Vitamin D deficiency #Osteoporosis #Chronic back pain #Depression / Insomnia #GERD/avoid PPI COMPLICATIONS/CHIEF COMPLAINT: C Difficile Enteritis. HISTORY OF PRESENT ILLNESS: 84 female presented to the emergency room with complaints of diarrhea. Patient has had a long-standing history of recurrent C. difficile colitis. Patient was initially diagnosed with C. 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 Patient has been experiencing diarrhea on and off since that point and has tried several different therapies that have been un successful. Patient was recently on a vancomycin pulse dose. After completion of which did have resolution of her diarrhea. However, had a recurrence and was admitted to the hospital on 07/27. Patient was given Dificid and had improvement of her symptoms. Patient was subsequently discharged on 07/29 after reporting resolution of her symptoms. Patient was advised to continue with Dificid for 7 more days. On 07/30 evening patient had diarrhea and vomiting reported. 5 episodes of vomiting described as brown, 5 episodes of diarrhea described as watery, brown. This morning patient did not have any vomiting but did report an episode of diarrhea and came to the emergency room for further evaluation. 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 Patient was initially diagnosed with C. 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 Patient has been experiencing diarrhea on and off since that point and has tried several different therapies that have been unsuccessful. Patient was recently on a vancomycin pulse dose. After completion of which did have resolution of her diarrhea. However, had a recurrence and was admitted to the hospital on 07/27. Patient was given Dificid and had improvement of her symptoms. Patient was subsequently discharged on 07/29 after reporting resolution of her symptoms. Patient was advised to continue with Dificid for 7 more days. She has presented to the emergency room again and was admitted for failure of Dificid. GI was called on consultation. #Recurrent diarrhea - likely 2/2 C. diff colitis, possibly 2/2 enteritis - History of Multiple C. difficile episodes; failed stool transplant (2009) - Presented again to the ER with worsening diarrhea associated with nausea and vomiting - Patient's diarrhea appears to have completely resolved and currently she is having formed bowel movements without any incontinence - Has remained hemodynamically stable and afebrile throughout this hospitalization - s/p Leukocytosis - Imaging reviewed above - c/w Zofran / Colesevelam / Metamucil , questran, dificid q48h dosing as o/p - s/p colonoscopy 08/05/20 #s/p Hypomagnesemia #HTN - BP well controlled - c/w Bisoprolol #Hx of PE - Currently off of anticoagulation #Impaired fasting glucose - Diet controlled #DLP - c/w Rosuvastatin #LATANYA - Patient is not on CPAP #Iron deficiency anemia - History of GI bleeds - c/w Ferrous sulfate #Dementia, mild - Patient lives with her - Daughter visits frequently #Vitamin D deficiency - c/w supplementation #Osteoporosis #Chronic back pain - c/w [place], Cyclobenzaprine, Gabapentin #Depression / Insomnia - c/w Paroxetine - c/w Ramelteon / Trazodone #GERD - c/w Famotidine; will hold PPI DISCHARGE MEDICATIONS: Please see below. ALLERGIES: Please see below. PHYSICAL EXAMINATION ON DISCHARGE: VITAL SIGNS: Please see below. General: NAD, lying comfortably in bed HEENT: NC/AT, EOMI, edentulous Lungs: no accessory muscle use, speaking full sentences without shortness of breath Ext: no edema Neuro: no gross focal deficits LABORATORY DATA: Please see below. ACTIVITY: [As tolerated]. DISPOSITION: Home with services DISCHARGE INSTRUCTIONS: 1. PCP in 3-5 days 2. ID as scheduled or within 7 days DISCHARGE CONDITION: [Stable]. TIME SPENT ON DISCHARGE: 35 minutes. Vital Signs/I&Os Vital Signs Date Time Temp Pulse Resp B/P (MAP) Pulse Ox O2 Delivery O2 Flow Rate FiO2 08/08/20 08:55 20 08/08/20 08:24 93 131/73 08/08/20 06:38 98.5 91 Room Air I&O- Last 24 Hours up to 6 AM 08/08/20 05:59 Intake Total 0 ml Output Total 0 ml Balance 0 ml Discharge Medications Scheduled Bisoprolol Fumarate (Bisoprolol Fumarate) 10 Mg Tablet, 10 MG PO DAILY, (Reported) C,E,Zinc,Copper 24/Om3/Lut/Eloy (Ocuvite Adult 50 Plus Softgel) 1 Each Capsule, 1 CAP PO DAILY, (Reported) Cholecalciferol (Vitamin D3) (Vitamin D3) 1,000 Unit Tablet, 2,000 UNITS PO DAILY, (Reported) Cholestyramine (Cholestyramine Packet) 4 Gm Powd.pack, 4 GM PO BID@1000,2200 Colesevelam HCl (Colesevelam HCl) 625 Mg Tablet, 625 MG PO BIDWM, (Reported) Cyclobenzaprine HCl (Cyclobenzaprine HCl) 5 Mg Tablet, 5 MG PO QHS, (Reported) Famotidine (Famotidine) 20 Mg Tablet, 20 MG PO DAILY, (Reported) Ferrous Sulfate (Ferrous Sulfate) 325 Mg Tablet.dr, 325 MG PO Q2D, (Reported) Fidaxomicin (Dificid) 200 Mg Tablet, 200 MG PO Q48H Gabapentin (Gabapentin) 400 Mg Capsule, 400 MG PO BID, (Reported) TAKES AM/1600 Hydrocodone/Acetaminophen (Hydrocodone-Acetamin 10-325 mg) 1 Each Tablet, 2 TAB PO BID, (Reported) Multivitamin with Minerals (Hair, Skin and Nails) 1 Each Tablet, 1 TAB PO DAILY, (Reported) Paroxetine HCl (Paroxetine HCl) 20 Mg Tablet, 20 MG PO DAILY, (Reported) Potassium Chloride (Potassium Chloride) 10 Meq Tab.er.prt, 10 MEQ PO DAILY, (Reported) Psyllium Husk/Aspartame (Metamucil Fiber Singles Packet) 3.4 Gm Powd.pack, 1 PKT PO DAILY, (Reported) Rosuvastatin Calcium (Crestor) 40 Mg Tablet, 40 MG PO DAILY, (Reported) diphenhydrAMINE HCl (diphenhydrAMINE HCl) 25 Mg Tablet, 50 MG PO QHS, (Reported) Scheduled PRN Acetaminophen/Caffeine (Tension Headache Caplet) 1 Each Tablet, 1 TAB PO DAILY PRN for HEADACHE, (Reported) Allergies Coded Allergies: Penicillins (Verified Allergy, Mild, rash, 08/26/18) aspirin (Verified Allergy, Mild, rash, 08/26/18) atorvastatin (Verified Allergy, Unknown, 08/26/18) rivaroxaban (Verified Adverse Reaction, Unknown, GI BLEED, 07/26/20) ARGENIS HOLMAN MD August 08, 2020 10:54
[2020-08-08 14:00] VITALS: BP 130/65
--- NOTE | 2020-08-08 19:37 | IPN ---
INFECTIOUS DISEASE PROGRESS NOTE DATE: 08/08/2020 SUBJECTIVE: Eva seems to be doing well. She has no complaints. No nausea, vomiting or abdominal pain. Her diarrhea has improved. She had a small bowel movement yesterday. She is ready to be discharged home. LABORATORY DATA: White count 8.7, hemoglobin 11.4, hematocrit 36.5, platelets 281. Sodium 142, potassium 4, chloride 112, bicarbonate 23, BUN 12, creatinine 0.61, calcium 9.4, magnesium 1.8. MEDICATIONS: - fidaxomicin 100 mg by mouth daily after she had finished a 10 day course of 200 mg by mouth twice a day. She will be discharged home on a taper of fidaxomicin 200 mg every other day for the next two weeks. - She will receive a dose of Zinplava to prevent recurrence of diarrhea at the dose of 800 mg intravenous (IV) times one dose. If she does not get prior authorization today, this can be arranged by my office next week to get the prior authorization. It should be given in the next 10 days.
== END 2020-08-08 14:45 | disposition home health service (06) | DRG 373 ==
LOC: M ED 11:32 → M ED INP 16:46 → ENRESERV 20:34 → M MS5PR 22:30
PROVIDERS: ADMIT Internal Medicine; ATTEND Internal Medicine
PROC: 0DBN4ZX Excision of Sigmoid Colon, Percutaneous Endoscopic Approach, Diagnostic (ICD-10-PCS; principal; 2020-08-05 07:06)
DX: A04.71 Enterocolitis due to Clostridium difficile, recurrent (principal); I11.0 Hypertensive heart disease with heart failure; D50.9 Iron deficiency anemia, unspecified; F03.90 Unspecified dementia, unspecified severity, without behavioral disturbance, psychotic disturbance, mood disturbance, and anxiety; K57.30 Diverticulosis of large intestine without perforation or abscess without bleeding; K52.9 Noninfective gastroenteritis and colitis, unspecified; E83.42 Hypomagnesemia; F32.9 Major depressive disorder, single episode, unspecified; G47.33 Obstructive sleep apnea (adult) (pediatric); K21.9 Gastro-esophageal reflux disease without esophagitis; M81.0 Age-related osteoporosis without current pathological fracture; E55.9 Vitamin D deficiency, unspecified; Z86.711 Personal history of pulmonary embolism; Z79.899 Other long term (current) drug therapy; Z88.0 Allergy status to penicillin; Z88.6 Allergy status to analgesic agent; Z88.8 Allergy status to other drugs, medicaments and biological substances; K64.8 Other hemorrhoids

== ENCOUNTER 2020-08-10 11:04 | Inpatient (IN) | payer MEDICARE ==
[~2020-08-10] VITALS: Ht 152.4 cm; Wt 77.0 kg
[~2020-08-10 11:04] MED LIST changes: +CHOL4PW PO
[2020-08-10] MEDS ORDERED: NS 500 ML IV ONE (12:35)
[2020-08-10 12:59] LABS: BASO # 0.1 10^3/uL (0.0-0.2); BASO % 0.5 % (0.0-1.0); EOS # 0.2 10^3/uL (0.0-0.5); EOS % 1.9 % (0.0-3.0); HEMATOCRIT 43.6 % (36.0-47.0); HEMOGLOBIN 13.2 g/dl (12.0-15.5); LYMPH # 2.1 10^3/uL (1.5-5.0); LYMPH % 21.2 % (24.0-44.0); MEAN CORPUSCULAR HEMOGLOBIN 30.8 pg (27.0-33.0); MEAN CORPUSCULAR HGB CONC 30.3 g/dl (32.0-36.5); MEAN CORPUSCULAR VOLUME 101.6 fl (80.0-96.0); MONO # 0.8 10^3/uL (0.0-0.8); MONO % 7.9 % (2.0-8.0); NEUTROPHILS # 6.7 10^3/uL (1.5-8.5); NEUTROPHILS % 67.9 % (36.0-66.0); PLATELET COUNT, AUTOMATED 293 10^3/uL (150-450); RED BLOOD COUNT 4.29 10^6/uL (4.00-5.40); WHITE BLOOD COUNT 9.9 10^3/uL (4.0-10.0)
[2020-08-10 13:19] LABS: ALBUMIN 3.8 GM/DL (3.2-5.2); ALT/SGPT 52 U/L (12-78); BILIRUBIN,DIRECT 0.1 MG/DL (0.0-0.2); BILIRUBIN,TOTAL 0.3 MG/DL (0.2-1.0); BLOOD UREA NITROGEN 18 MG/DL (7-18); CALCIUM LEVEL 10.4 MG/DL (8.8-10.2); CARBON DIOXIDE LEVEL 24 MEQ/L (21-32); CHLORIDE LEVEL 109 MEQ/L (98-107); GLOMERULAR FILTRATION RATE > 60.0 (>32); GLUCOSE, FASTING 117 MG/DL (70-100); LIPASE 409 U/L (73-393); POTASSIUM SERUM 5.1 MEQ/L (3.5-5.1); SODIUM LEVEL 137 MEQ/L (136-145); TOTAL PROTEIN 7.1 GM/DL (6.4-8.2)
[2020-08-10] MEDS ORDERED: VANCOMYCIN ORAL SOL 250MG/5ML ORAL SYRINGE PO STA (14:10)
[2020-08-10] MEDS ORDERED: ACETAMINOPHEN TAB 650MG DOSE (2X325MG) PO PRN (15:05)
[2020-08-10] MEDS ORDERED: CHOL4POW4 PO (15:27)
--- NOTE | 2020-08-10 15:29 | IPNPDOC ---
Text Note Date of Service The patient was seen on 08/10/20. NOTE CHIEF COMPLAINT: Diarrhea for 3 days HISTORY OF PRESENT ILLNESS: Patient was discharged from [facility] on 08/08/2020 where she was admitted for the same reason: C. difficile colitis with recalcitrant diarrhea. That she had approximately 1.5 days without diarrhea, and now it has recurred on ce again. She is accompanied in the room by her daughter who also provides most of the history. Apparently starting yesterday she began to have liquid stools again, and it is almost constant. Both the ED provider and myself have called and spoken with her motorcycle engine assembler Dr. Taylor. The plan will be to admit patient once again, and we will start her back on vancomycin 250 mg 4 times a day for 10 days and then plan to go for a long taper. During her last admission the Infectious Disease specialist was consulted and outpatient dose of Zenplava was recommended, however the patient did not even make it the entire weekend before her diarrhea resumed. This still may be an option if her able to get her infection under control. There is possibility that we may do inpatient fecal transplant in the next few days depending on her clinical situation. CODE STATUS: Full code PAST MEDICAL HISTORY: History of multiple GI bleeds History of C. difficile colitis History of pulmonary embolism Hypertension Chronic back pain Vitamin D deficiency Hyperlipidemia Iron deficiency anemia, perhaps also history of blood loss anemia due to GI bleeds Insomnia Osteoporosis Obstructive sleep apnea Dementia, mild Impaired fasting glucose Depression PAST SURGICAL HISTORY: Right knee surgery Neck surgery Melanoma removed from her back Hysterectomy Left ring and pinky finger amputation Tonsillectomy Sinus surgery D&C Bladder suspension Cholecystectomy Carpal tunnel release Back surgery SOCIAL HISTORY: Does not smoke, drink alcohol, or use any illicit drugs. FAMILY HISTORY: Father of alcoholic liver disease. Mother of breast cancer. Sister had pulmonary embolus and COPD REVIEW OF SYSTEMS: Constitutional: Patient denies fevers, chills, night sweats, recent weight gain/loss. HEENT: Patient denies blurred or double vision, transient visual disturbances, postnasal drip, epistaxis, sore throat, difficulty chewing or swallowing food. Cardiovascular: Patient denies chest discomfort/pain, palpitations, exertional dyspnea, orthopnea, claudication. Respiratory: Patient denies dyspnea, wheezing, cough, hemoptysis, sputum production. Gastrointestinal: Patient admits to diarrhea. Denies abdominal pain at this time. No melena. PHYSICAL EXAMINATION: General: Awake, alert, oriented 3. She does not appear to be in acute distress at this time. HEENT: Head normocephalic atraumatic, conjunctiva are pink, sclera are nonicteri c, buccal mucosa is somewhat dry. Hearing is grossly intact to conversation. Respiratory: Clear to auscultation bilaterally with no wheezes, rales, or rhonchi. Cardiovascular: Regular rate and rhythm, with no rubs, gallops, or murmur. Abdomen: Soft, only minimally tender in the periumbilical region, nondistended, no hepatosplenomegaly appreciated. Bowel sounds present. Extremities: 2+ pulses in the radial and dorsalis pedis bilaterally. No evidence of clubbing or cyanosis ASSESSMENT/PLAN: Recalcitrant C. difficile infection -Admit patient to the [facility] floor, expect greater than 2 midnight stay -Start PO vancomycin 250 mg 4 times a day -Continue cholestyramine, this was initiated during her last admission -Discontinue fidaxomicin at this time -GI Consult placed -Consult to PT/OT and PFS placed. The patient states that she is able to accomplish all of her ADLs without assistance, however the daughter seems to be helping her with almost all of her ADLs. Hopefully occupational therapy will be able to assess her level of functioning. If the daughter is able to meet all of her needs, then that would be great, otherwise, given all of her recurrent hospitalizations, perhaps home services or a short-term rehabilitation facility after discharge may be appropriate. Hypertension - Continue home dose of bisoprolol Chronic back pain -Continue home dose of hydrocodone, gabapentin, cyclobenzaprine Hyperlipidemia -Continue home dose of rosuvastatin Insomnia -Continue home dose of Benadryl daily at bedtime as needed Iron deficiency anemia -Continue home dose of iron supplementation Vitamin D deficiency -Continue home dose of vitamin D supplementation Depression -Continue home dose of paroxetine DVD prophylaxis -Lovenox VS,Fishbone, I+O VS, Fishbone, I+O Laboratory Tests 08/10/20 12:45 Vital Signs Date Time Temp Pulse Resp B/P (MAP) Pulse Ox O2 Delivery O2 Flow Rate FiO2 08/10/20 13:01 77 130/58 (82) 77 119/58 (78) 71 102/54 (70) 08/10/20 11:35 97.5 18 96 SULAIMAN DUONG DO August 10, 2020 15:22
[2020-08-10 16:55] VITALS: BP 149/76
[2020-08-10] MEDS: GABAPENTIN 400MG CAP PO SCH (17:50)
[2020-08-10] MEDS: COLESEVELAM 625 MG TAB (WELCHOL) PO SCH (17:50)
[2020-08-10] MEDS: LACTOBACILLUS ACIDOPHILUS CAP (BACID) PO SCH (17:50)
[2020-08-10] MEDS: VANCOMYCIN ORAL SOL 250MG/5ML ORAL SYRINGE PO SCH ×2 (17:51→23:15)
[2020-08-10 20:09] VITALS: BP 161/94
[2020-08-10] MEDS: NORCO, ANEXSIA 5/325MG TABLET (HYDROcodone/ACETAMINOPHEN) PO SCH (20:11)
[2020-08-10] MEDS: CHOLESTYRAMINE 4 GM PWD PKT PO SCH (20:11)
[2020-08-10] MEDS: diphenhydrAMINE 50MG CAP PO PRN (20:11)
[2020-08-10] MEDS: CYCLOBENZAPRINE 5MG TABLET PO SCH (20:11)
[2020-08-10] MEDS: ONDANSETRON 4MG/2ML VIAL IV PRN (20:59)
[2020-08-11] MEDS: RAMELTEON 8 MG TAB (ROZEREM) PO PRN ×2 (01:42→21:22)
[2020-08-11 05:04] VITALS: BP 122/58
[2020-08-11] MEDS: VANCOMYCIN ORAL SOL 250MG/5ML ORAL SYRINGE PO SCH ×4 (05:09→23:06)
[2020-08-11] MEDS: ONDANSETRON 4MG/2ML VIAL IV PRN (05:09)
[2020-08-11 07:02] LABS: HEMATOCRIT 43.6 % (36.0-47.0); MEAN CORPUSCULAR HEMOGLOBIN 30.3 pg (27.0-33.0); MEAN CORPUSCULAR HGB CONC 29.8 g/dl (32.0-36.5); MEAN CORPUSCULAR VOLUME 101.6 fl (80.0-96.0); PLATELET COUNT, AUTOMATED 279 10^3/uL (150-450); RED BLOOD COUNT 4.29 10^6/uL (4.00-5.40); WHITE BLOOD COUNT 13.1 10^3/uL (4.0-10.0)
[2020-08-11 07:33] LABS: CALCIUM LEVEL 9.6 MG/DL (8.8-10.2); CREATININE FOR GFR 1.09 MG/DL (0.55-1.30); POTASSIUM SERUM 4.8 MEQ/L (3.5-5.1)
[2020-08-11] MEDS: ENOXAPARIN 40MG/0.4ML SYRINGE (J1650 PER 10MG) SC SCH (08:31)
[2020-08-11] MEDS: METAMUCIL (PSYLLIUM) PACKET PO SCH (08:31)
[2020-08-11] MEDS: PARoxetine 20MG TABLET PO SCH (08:33)
[2020-08-11] MEDS: VITAMIN D 1,000 INTERNATIONAL UNITS TABLET PO SCH (08:33)
[2020-08-11] MEDS: NORCO, ANEXSIA 5/325MG TABLET (HYDROcodone/ACETAMINOPHEN) PO SCH ×2 (08:33→21:23)
[2020-08-11] MEDS: ROSUVASTATIN 10 MG TAB (CRESTOR) PO SCH (08:33)
[2020-08-11] MEDS: GABAPENTIN 400MG CAP PO SCH ×2 (08:33→17:14)
[2020-08-11] MEDS: POTASSIUM CHLORIDE 10 MEQ SR TABLET PO SCH (08:33)
[2020-08-11] MEDS: OCUVITE 1 TAB PO SCH (08:34)
[2020-08-11] MEDS: MULTIVITAMINS/MINERALS THERAP 1 TAB PO SCH (08:34)
[2020-08-11] MEDS: COLESEVELAM 625 MG TAB (WELCHOL) PO SCH ×2 (08:34→17:15)
[2020-08-11] MEDS: bisoproloL fumarate 10 MG TAB PO SCH (08:34)
[2020-08-11] MEDS: LACTOBACILLUS ACIDOPHILUS CAP (BACID) PO SCH ×2 (08:34→17:15)
[2020-08-11] MEDS: FAMOTIDINE 20 MG TAB PO SCH (08:34)
[2020-08-11] MEDS: LR 1,000 ML IV SCH ×2 (09:53→21:36)
[2020-08-11] MEDS: CHOLESTYRAMINE 4 GM PWD PKT PO SCH ×2 (09:53→21:22)
[2020-08-11 14:00] VITALS: BP 136/68
--- NOTE | 2020-08-11 19:38 | HPEPDOC ---
[facility] Medical History & Physical Date of Admission August 10, 2020 Date of Service: August 10, 2020 History and Physical CHIEF COMPLAINT: Diarrhea for 3 days HISTORY OF PRESENT ILLNESS: Patient was discharged from [facility] on 08/08/2020 where she was admitted for the same reason: C. difficile colitis with recalcitrant diarrhea. That she had approximately 1.5 days without diarrhea, and now it has recurred once again. She is accompanied in the room by her daughter who also provides most of the history. Apparently starting yesterday she began to have liquid stools again, and it is almost constant. Both the ED provider and myself have called and spoken with her health unit coordinator Dr. Taylor. The plan will be to admit patient once again, and we will start her back on vancomycin 250 mg 4 times a day for 10 days and then plan to go for a long taper. During her last admission the Infectious Disease specialist was consulted and outpatient dose of Zenplava was recommended, however the patient did not even make it the entire weekend before her diarrhea resumed. This still may be an option if her able to get her infection under control. There is possibility that we may do inpatient fecal transplant in the next few days depending on her clinical situation. CODE STATUS: Full code PAST MEDICAL HISTORY: History of multiple GI bleeds History of C. difficile colitis History of pulmonary embolism Hypertension Chronic back pain Vitamin D deficiency Hyperlipidemia Iron deficiency anemia, perhaps also history of blood loss anemia due to GI bleeds Insomnia Osteoporosis Obstructive sleep apnea Dementia, mild Impaired fasting glucose Depression PAST SURGICAL HISTORY: Right knee surgery Neck surgery Melanoma removed from her back Hysterectomy Left ring and pinky finger amputation Tonsillectomy Sinus surgery D&C Bladder suspension Cholecystectomy Carpal tunnel release Back surgery SOCIAL HISTORY: Does not smoke, drink alcohol, or use any illicit drugs. FAMILY HISTORY: Father of alcoholic liver disease. Mother of breast cancer. Sister had pulmonary embolus and COPD REVIEW OF SYSTEMS: Constitutional: Patient denies fevers, chills, night sweats, recent weight gain/loss. HEENT: Patient denies blurred or double vision, transient visual disturbances, postnasal drip, epistaxis, sore throat, difficulty chewing or swallowing food. Cardiovascular: Patient denies chest discomfort/pain, palpitations, exertional dyspnea, orthopnea, claudication. Respiratory: Patient denies dyspnea, wheezing, cough, hemoptysis, sputum production. Gastrointestinal: Patient admits to diarrhea. Denies abdominal pain at this time. No melena. PHYSICAL EXAMINATION: General: Awake, alert, oriented 3. She does not appear to be in acute distress at this time. HEENT: Head normocephalic atraumatic, conjunctiva are pink, sclera are nonicteric, buccal mucosa is somewhat dry. Hearing is grossly intact to conversation. Respiratory: Clear to auscultation bilaterally with no wheezes, rales, or rhonchi. Cardiovascular: Regular rate and rhythm, with no rubs, gallops, or murmur. Abdomen: Soft, only minimally tender in the periumbilical region, nondistended, no hepatosplenomegaly appreciated. Bowel sounds present. Extremities: 2+ pulses in the radial and dorsalis pedis bilaterally. No evidence of clubbing or cyanosis ASSESSMENT/PLAN: Recalcitrant C. difficile infection -Admit patient to the [facility] floor, expect greater than 2 midnight stay -Start PO vancomycin 250 mg 4 times a day -Continue cholestyramine, this was initiated during her last admission -Discontinue fidaxomicin at this time -GI Consult placed -Consult to PT/OT and PFS placed. The patient states that she is able to accomplish all of her ADLs without assistance, however the daughter seems to be helping her with almost all of her ADLs. Hopefully occupational therapy will be able to assess her level of functioning. If the daughter is able to meet all of her needs, then that would be great, otherwise, given all of her recurrent hospitalizations, perhaps home services or a short-term rehabilitation facility after discharge may be appropriate. Hypertension - Continue home dose of bisoprolol Chronic back pain -Continue home dose of hydrocodone, gabapentin, cyclobenzaprine Hyperlipidemia -Continue home dose of rosuvastatin Insomnia -Continue home dose of Benadryl daily at bedtime as needed Iron deficiency anemia -Continue home dose of iron supplementation Vitamin D deficiency -Continue home dose of vitamin D supplementation Depression -Continue home dose of paroxetine DVD prophylaxis -Lovenox Vital Signs Vital Signs Date Time Temp Pulse Resp B/P (MAP) Pulse Ox O2 Delivery O2 Flow Rate FiO2 08/11/20 14:00 97.8 80 17 136/68 (90) 95 Room Air Laboratory Data Labs 24H Laboratory Tests 2 08/11/20 06:39: Nucleated Red Blood Cells % (auto) 0.0, Anion Gap 10, Glomerular Filtration Rate 51.0, Calcium Level 9.6 CBC/BMP Laboratory Tests 08/11/20 06:39 Microbiology Microbiology 08/10/20 Respiratory Virus Panel (PCR) ([facility]) - Final, Complete Home Medications Scheduled Bisoprolol Fumarate (Bisoprolol Fumarate) 10 Mg Tablet, 10 MG PO DAILY C,E,Zinc,Copper 24/Om3/Lut/Eloy (Ocuvite Adult 50 Plus Softgel) 1 Each Capsule, 1 CAP PO DAILY Cholecalciferol (Vitamin D3) (Vitamin D3) 1,000 Unit Tablet, 2,000 UNITS PO DAILY Cholestyramine (with Sugar) (Cholestyramine Packet) 4 Gm Powd.pack, 4 GM PO BID Colesevelam HCl (Colesevelam HCl) 625 Mg Tablet, 625 MG PO BIDWM Cyclobenzaprine HCl (Cyclobenzaprine HCl) 5 Mg Tablet, 5 MG PO QHS Famotidine (Famotidine) 20 Mg Tablet, 20 MG PO DAILY Ferrous Sulfate (Ferrous Sulfate) 325 Mg Tablet.dr, 325 MG PO Q2D Gabapentin (Gabapentin) 400 Mg Capsule, 400 MG PO BID TAKES AM/1600 Hydrocodone/Acetaminophen (Hydrocodone-Acetamin 10-325 mg) 1 Each Tablet, 2 TAB PO BID Multivitamin with Minerals (Hair, Skin and Nails) 1 Each Tablet, 1 TAB PO DAILY Paroxetine HCl (Paroxetine HCl) 20 Mg Tablet, 20 MG PO DAILY Potassium Chloride (Potassium Chloride) 10 Meq Tab.er.prt, 10 MEQ PO DAILY Psyllium Husk/Aspartame (Metamucil Fiber Singles Packet) 3.4 Gm Powd.pack, 1 PKT PO DAILY Rosuvastatin Calcium (Crestor) 40 Mg Tablet, 40 MG PO DAILY diphenhydrAMINE HCl (diphenhydrAMINE HCl) 25 Mg Tablet, 50 MG PO QHS Scheduled PRN Acetaminophen/Caffeine (Tension Headache Caplet) 1 Each Tablet, 1 TAB PO DAILY PRN for HEADACHE Allergies Coded Allergies: Penicillins (Verified Allergy, Mild, rash, 08/26/18) aspirin (Verified Allergy, Mild, rash, 08/26/18) atorvastatin (Verified Allergy, Unknown, 08/26/18) rivaroxaban (Verified Adverse Reaction, Unknown, GI BLEED, 07/26/20) A-FIB/CHADSVASC A-FIB History Current/History of A-Fib/PAF?: No SULAIMAN DUONG DO August 11, 2020 19:38
--- NOTE | 2020-08-11 19:43 | IPNPDOC ---
Text Note Date of Service The patient was seen on 08/11/20. NOTE Hospitalist Progress Note Subjective: The patient states that she is feeling a little bit better this morning, but she is continuing to have diarrhea. She does not have any pain at this time. She is only frustrated by the fact that she is having recurrent hospitalizations and feels as though she is not making much improvement. Otherwise, the remainder of her review of systems is negative. Objective: General: Awake, alert, oriented 3. Not in any acute distress. HEENT: Head normocephalic, atraumatic, sclera are nonicteric. Hearing is grossly intact to conversation. Respiratory: Clear to auscultation bilaterally with no wheezes, rales, or rhonchi. Cardiovascular: Regular rate and rhythm, with no rubs, gallops, or murmur. Abdomen: Soft, nontender, nondistended, no hepatosplenomegaly appreciated. Bowel sounds present. Extremities: 2+ pulses in the radial and dorsalis pedis bilaterally. No evidence of clubbing or cyanosis. Assessment/Plan: Recalcitrant C. difficile infection -Continue PO vancomycin 250 mg 4 times a day -Continue cholestyramine -GI Consult placed, their recommendations are greatly appreciated Hypertension - Continue home dose of bisoprolol Chronic back pain -Continue home dose of hydrocodone, gabapentin, cyclobenzaprine Hyperlipidemia -Continue home dose of rosuvastatin Insomnia -Continue home dose of Benadryl daily at bedtime as needed Iron deficiency anemia -Continue home dose of iron supplementation Vitamin D deficiency -Continue home dose of vitamin D supplementation Depression -Continue home dose of paroxetine DVD prophylaxis -Lovenox VS,Fishbone, I+O VS, Fishbone, I+O Laboratory Tests 08/11/20 06:39 Vital Signs Date Time Temp Pulse Resp B/P (MAP) Pulse Ox O2 Delivery O2 Flow Rate FiO2 08/11/20 14:00 97.8 80 17 136/68 (90) 95 Room Air l I&O- Last 24 Hours up to 6 AM 08/11/20 06:00 Intake Total 820 ml Balance 820 ml SULAIMAN DUONG DO August 11, 2020 19:43
[2020-08-11] MEDS: CYCLOBENZAPRINE 5MG TABLET PO SCH (21:22)
[2020-08-11] MEDS: diphenhydrAMINE 50MG CAP PO PRN (21:22)
[2020-08-12] MEDS: VANCOMYCIN ORAL SOL 250MG/5ML ORAL SYRINGE PO SCH (05:24)
[2020-08-12 06:00] VITALS: BP 148/82
[2020-08-12 06:27] LABS: HEMATOCRIT 38.2 % (36.0-47.0); HEMOGLOBIN 11.4 g/dl (12.0-15.5); MEAN CORPUSCULAR HEMOGLOBIN 30.5 pg (27.0-33.0); MEAN CORPUSCULAR HGB CONC 29.8 g/dl (32.0-36.5); MEAN CORPUSCULAR VOLUME 102.1 fl (80.0-96.0); PLATELET COUNT, AUTOMATED 251 10^3/uL (150-450); RED BLOOD COUNT 3.74 10^6/uL (4.00-5.40)
[2020-08-12 06:48] LABS: BLOOD UREA NITROGEN 21 MG/DL (7-18); CALCIUM LEVEL 9.2 MG/DL (8.8-10.2); CARBON DIOXIDE LEVEL 20 MEQ/L (21-32); CHLORIDE LEVEL 113 MEQ/L (98-107); CREATININE FOR GFR 0.83 MG/DL (0.55-1.30); GLOMERULAR FILTRATION RATE > 60.0 (>32); GLUCOSE, FASTING 114 MG/DL (70-100); POTASSIUM SERUM 4.4 MEQ/L (3.5-5.1); SODIUM LEVEL 138 MEQ/L (136-145)
[2020-08-12] MEDS: FAMOTIDINE 20 MG TAB PO SCH (08:39)
[2020-08-12] MEDS: NORCO, ANEXSIA 5/325MG TABLET (HYDROcodone/ACETAMINOPHEN) PO SCH ×2 (08:40→21:18)
[2020-08-12] MEDS: CHOLESTYRAMINE 4 GM PWD PKT PO SCH ×2 (08:40→21:18)
[2020-08-12] MEDS: MULTIVITAMINS/MINERALS THERAP 1 TAB PO SCH (08:40)
[2020-08-12] MEDS: PARoxetine 20MG TABLET PO SCH (08:40)
[2020-08-12] MEDS: METAMUCIL (PSYLLIUM) PACKET PO SCH (08:40)
[2020-08-12] MEDS: ROSUVASTATIN 10 MG TAB (CRESTOR) PO SCH (08:41)
[2020-08-12] MEDS: COLESEVELAM 625 MG TAB (WELCHOL) PO SCH ×2 (08:41→18:35)
[2020-08-12] MEDS: GABAPENTIN 400MG CAP PO SCH ×2 (08:41→14:50)
[2020-08-12] MEDS: bisoproloL fumarate 10 MG TAB PO SCH (08:41)
[2020-08-12] MEDS: OCUVITE 1 TAB PO SCH (08:42)
[2020-08-12] MEDS: POTASSIUM CHLORIDE 10 MEQ SR TABLET PO SCH (08:42)
[2020-08-12] MEDS: VITAMIN D 1,000 INTERNATIONAL UNITS TABLET PO SCH (08:42)
[2020-08-12] MEDS: LACTOBACILLUS ACIDOPHILUS CAP (BACID) PO SCH ×2 (08:42→18:35)
[2020-08-12] MEDS: ENOXAPARIN 40MG/0.4ML SYRINGE (J1650 PER 10MG) SC SCH (08:42)
[2020-08-12] MEDS ORDERED: FERROUS SULFATE 325MG TAB PO SCH (09:00)
[2020-08-12 14:00] VITALS: BP 123/64
--- NOTE | 2020-08-12 16:46 | IPNPDOC ---
Subjective Date Seen The patient was seen on 08/12/20. Subjective Chief Complaint/HPI No complaints this morning. Reports does not know what happen at home as reports diarreha starts as soon as she goes home. No abdominal pain. No diarrhea. Objective Physical Examination General Exam: Positive: Alert, Cooperative, No Acute Distress Eye Exam: Positive: PERRLA, Conjunctiva & lids normal, EOMI; Negative: Sclera icteric ENT Exam: Positive: Atraumatic, Mucous membr. moist/pink, Pharynx Normal Neck Exam: Positive: Supple; Negative: JVD, thyromegaly Chest Exam: Positive: Clear to auscultation, Normal air movement Heart Exam: Positive: Rate Normal, Regular Rhythm, Normal S1, Normal S2; Negative: Murmurs, Rubs Abdomen Exam: Positive: Normal bowel sounds, Soft; Negative: Tenderness, Hepatospenomegaly Extremity Exam: Positive: Normal pulses; Negative: Clubbing, Cyanosis, Edema Assessment /Plan Assessment Recalcitrant C. difficile infection Was discharged on 08/08 and is back on 08/10 with reported diarrhea recurrence. In hospital no diarrhea at all. Continue cholestyramine Has finished deficid 200 bid from 07/26 to 08/05. Started on deficid 200 mg every other day from 08/08 to be continued for 20 days. will continue deficid every other day for now. Has been approved for zinplava to be given the day after discharge at [facility] infusion unit. Hypertension Continue home dose of bisoprolol Chronic back pain Continue home dose of hydrocodone, gabapentin, cyclobenzaprine Hyperlipidemia Continue home dose of rosuvastatin Insomnia Continue home dose of Benadryl daily at bedtime as needed Iron deficiency anemia Continue home dose of iron supplementation Vitamin D deficiency Continue home dose of vitamin D supplementation Depression Continue home dose of paroxetine Plan/VTE VTE Prophylaxis Ordered?: Yes VS, I&O, 24H, Fishbone Vital Signs/I&O Vital Signs Date Time Temp Pulse Resp B/P (MAP) Pulse Ox O2 Delivery O2 Flow Rate FiO2 08/12/20 14:00 98.3 75 16 123/64 (83) 94 Room Air I&O- Last 24 Hours up to 6 AM 08/12/20 07:00 Intake Total 1630 ml Output Total 200 ml Balance 1430 ml Laboratory Data 24H LABS Laboratory Tests 2 08/12/20 05:40: Urine Color YELLOW, Urine Appearance CLEAR, Urine pH 5.0, Urine Specific [place] 1.017, Urine Protein NEGATIVE, Urine Glucose (UA) NEGATIVE, Urine Ketones NEGATIVE, Urine Blood NEGATIVE, Urine Nitrite NEGATIVE, Urine Bilirubin NEGATIVE, Urine Urobilinogen 0.2, Urine Leukocyte Esterase NEGATIVE, Urine WBC (Auto) 3, Urine RBC (Auto) 3, Urine Hyaline Casts (Auto) 0, Urine Bacteria (Auto) NEGATIVE, Urine Squamous Epithelial Cells 0, Urine Mucus (Auto) SMALL, Urine Sperm (Auto) 08/12/20 06:05: Nucleated Red Blood Cells % (auto) 0.0, Anion Gap 5L, Glomerular Filtration Rate > 60.0, Calcium Level 9.2 CBC/BMP Laboratory Tests 08/12/20 06:05 Microbiology Microbiology 08/10/20 Respiratory Virus Panel (PCR) ([facility]) - Final, Complete JOSIANE MAX MD August 12, 2020 16:46
[2020-08-12] MEDS: CYCLOBENZAPRINE 5MG TABLET PO SCH (21:18)
[2020-08-12] MEDS: diphenhydrAMINE 50MG CAP PO PRN (21:18)
[2020-08-12] MEDS: FIDAXOMICIN 200 MG TAB (DIFICID) PO SCH (21:18)
[2020-08-12] MEDS: RAMELTEON 8 MG TAB (ROZEREM) PO PRN (21:18)
[2020-08-12 22:00] VITALS: BP 132/70
[2020-08-13 06:00] VITALS: BP 136/72
[2020-08-13 06:30] LABS: HEMOGLOBIN 11.5 g/dl (12.0-15.5); MEAN CORPUSCULAR HEMOGLOBIN 30.7 pg (27.0-33.0); MEAN CORPUSCULAR HGB CONC 31.1 g/dl (32.0-36.5); MEAN CORPUSCULAR VOLUME 98.9 fl (80.0-96.0); PLATELET COUNT, AUTOMATED 243 10^3/uL (150-450); RED BLOOD COUNT 3.74 10^6/uL (4.00-5.40); WHITE BLOOD COUNT 7.6 10^3/uL (4.0-10.0)
[2020-08-13 06:59] LABS: BLOOD UREA NITROGEN 16 MG/DL (7-18); CALCIUM LEVEL 9.3 MG/DL (8.8-10.2); CARBON DIOXIDE LEVEL 20 MEQ/L (21-32); CHLORIDE LEVEL 112 MEQ/L (98-107); CREATININE FOR GFR 0.61 MG/DL (0.55-1.30); GLOMERULAR FILTRATION RATE > 60.0 (>32); GLUCOSE, FASTING 101 MG/DL (70-100); POTASSIUM SERUM 4.4 MEQ/L (3.5-5.1); SODIUM LEVEL 140 MEQ/L (136-145)
[2020-08-13] MEDS ORDERED: DIFI200T PO (07:32)
[2020-08-13] MEDS: POTASSIUM CHLORIDE 10 MEQ SR TABLET PO SCH (09:06)
[2020-08-13] MEDS: PARoxetine 20MG TABLET PO SCH (09:07)
[2020-08-13] MEDS: MULTIVITAMINS/MINERALS THERAP 1 TAB PO SCH (09:07)
[2020-08-13] MEDS: COLESEVELAM 625 MG TAB (WELCHOL) PO SCH (09:07)
[2020-08-13] MEDS: NORCO, ANEXSIA 5/325MG TABLET (HYDROcodone/ACETAMINOPHEN) PO SCH (09:07)
[2020-08-13] MEDS: OCUVITE 1 TAB PO SCH (09:07)
[2020-08-13] MEDS: METAMUCIL (PSYLLIUM) PACKET PO SCH (09:07)
[2020-08-13] MEDS: CHOLESTYRAMINE 4 GM PWD PKT PO SCH (09:07)
[2020-08-13] MEDS: FIDAXOMICIN 200 MG TAB (DIFICID) PO SCH (09:07)
[2020-08-13 09:08] VITALS: BP 145/74
[2020-08-13] MEDS: ENOXAPARIN 40MG/0.4ML SYRINGE (J1650 PER 10MG) SC SCH (09:08)
[2020-08-13] MEDS: FAMOTIDINE 20 MG TAB PO SCH (09:08)
[2020-08-13] MEDS: bisoproloL fumarate 10 MG TAB PO SCH (09:08)
[2020-08-13] MEDS: LACTOBACILLUS ACIDOPHILUS CAP (BACID) PO SCH (09:08)
[2020-08-13] MEDS: GABAPENTIN 400MG CAP PO SCH (09:08)
[2020-08-13] MEDS: ROSUVASTATIN 10 MG TAB (CRESTOR) PO SCH (09:08)
[2020-08-13] MEDS: VITAMIN D 1,000 INTERNATIONAL UNITS TABLET PO SCH (09:08)
--- NOTE | 2020-08-13 12:28 | DS.PDOC ---
Discharge Summary General Date of Admission August 10, 2020 at 15:05 Date of Discharge 08/13/20 Discharge Summary PROCEDURES PERFORMED DURING STAY: [None]. DISCHARGE DIAGNOSES: Intractable diarrhea on chronic diarrhea C diff infection. Diverticulosis SECONDARY DIAGNOSIS: History of multiple GI bleeds History of Recurrent C. difficile colitis History of pulmonary embolism Hypertension Chronic back pain Vitamin D deficiency Hyperlipidemia Iron deficiency anemia, perhaps also history of blood loss anemia due to GI bleeds Insomnia Osteoporosis Obstructive sleep apnea Dementia, mild Impaired fasting glucose Chronic intermittent diarrhea Depression Neck surgery Melanoma removed from her back Bladder suspension Cholecystectomy Back surgery COMPLICATIONS/CHIEF COMPLAINT: C Difficile Enteritis Diarrhea. HOSPITAL COURSE: 84 year old female was admitted for uncontrollable diarrhea due to C diff infection. Patient has had several episodes of C diff since 2014. This year she was positive in march and in July. She was admitted from 07/31/20 to 08/08/2020 where she was admitted for the same reason: C. difficile colitis with recalcitrant diarrhea. After going home she had approximately well for 1.5 days without diarrhea, and then diarrhea recurred once again so came back to hospital and was admitted for intractable diarrhea and persistent C diff infection. Had colonoscopy on 08/05/20 which showed only diverticulosis, hemorrhoids and no signs of changes from C diff infection. Recalcitrant C. difficile infection Was discharged on 08/08 and is back on 08/10 with reported diarrhea recurrence. In hospital no diarrhea at all. Continue cholestyramine, Metamucil and colesvelum Has finished deficid 200 bid from 07/26 to 08/05. This admission ID recommended Deficid 200 bid x 5 days, daily x 5 days then every other day for 5 doses. As per PFS Deficid was approved in prior admission and patient has picked up. Has been approved for zinplava to be given the day after discharge at the infusion unit. Scheduled for 08/14/20 at 4 pm. Hypertension Continue home dose of bisoprolol Chronic back pain Continue home dose of hydrocodone, gabapentin, cyclobenzaprine Hyperlipidemia Continue home dose of rosuvastatin Insomnia Continue home dose of Benadryl daily at bedtime as needed Iron deficiency anemia Continue home dose of iron supplementation Vitamin D deficiency Continue home dose of vitamin D supplementation Depression Continue home dose of paroxetine DISCHARGE MEDICATIONS: Please see below. ALLERGIES: Please see below. PHYSICAL EXAMINATION ON DISCHARGE: VITAL SIGNS: Please see below. General Exam: Positive: Alert, Cooperative, No Acute Distress Eye Exam: Positive: PERRLA, Conjunctiva & lids normal, EOMI; Negative: Sclera icteric ENT Exam: Positive: Atraumatic, Mucous membr. moist/pink, Pharynx Normal Neck Exam: Positive: Supple; Negative: JVD, thyromegaly Chest Exam: Positive: Clear to auscultation, Normal air movement Heart Exam: Positive: Rate Normal, Regular Rhythm, Normal S1, Normal S2; Negative: Murmurs, Rubs Abdomen Exam: Positive: Normal bowel sounds, Soft; Negative: Tenderness, Hepatosplenomegaly Extremity Exam: Positive: Normal pulses; Negative: Clubbing, Cyanosis, Edema LABORATORY DATA: Please see below. ACTIVITY: [As tolerated]. DIET: Low residue DISCHARGE PLAN: Home DISCHARGE INSTRUCTIONS: Dr Sneed in 1 week DISCHARGE CONDITION: [Stable]. TIME SPENT ON DISCHARGE: 35 minutes. Vital Signs/I&Os Vital Signs Date Time Temp Pulse Resp B/P (MAP) Pulse Ox O2 Delivery O2 Flow Rate FiO2 08/13/20 09:37 17 08/13/20 09:08 104 145/74 08/13/20 06:00 98.4 92 Room Air I&O- Last 24 Hours up to 6 AM 08/13/20 06:00 Intake Total 1240 ml Output Total 1450 ml Balance -210 ml Laboratory Data Labs 24H Laboratory Tests 2 08/13/20 06:13: Nucleated Red Blood Cells % (auto) 0.0, Anion Gap 8, Glomerular Filtration Rate > 60.0, Calcium Level 9.3 CBC/BMP Laboratory Tests 08/13/20 06:13 Microbiology Microbiology 08/10/20 Respiratory Virus Panel (PCR) ([facility]) - Final, Complete Discharge Medications Scheduled Bisoprolol Fumarate (Bisoprolol Fumarate) 10 Mg Tablet, 10 MG PO DAILY, (Reported) C,E,Zinc,Copper 24/Om3/Lut/Eloy (Ocuvite Adult 50 Plus Softgel) 1 Each Capsule, 1 CAP PO DAILY, (Reported) Cholecalciferol (Vitamin D3) (Vitamin D3) 1,000 Unit Tablet, 2,000 UNITS PO DAILY, (Reported) Cholestyramine (with Sugar) (Cholestyramine Packet) 4 Gm Powd.pack, 4 GM PO BID, (Reported) Colesevelam HCl (Colesevelam HCl) 625 Mg Tablet, 625 MG PO BIDWM, (Reported) Cyclobenzaprine HCl (Cyclobenzaprine HCl) 5 Mg Tablet, 5 MG PO QHS, (Reported) Famotidine (Famotidine) 20 Mg Tablet, 20 MG PO DAILY, (Reported) Ferrous Sulfate (Ferrous Sulfate) 325 Mg Tablet.dr, 325 MG PO Q2D, (Reported) Fidaxomicin (Dificid) 200 Mg Tablet, 200 MG PO ASDIRECTED 1 tab twice a day till 08/16, then 1 tab daily x 5 doses (start 08/17), then 1 tab every other day x 5 doses (start 08/23) Gabapentin (Gabapentin) 400 Mg Capsule, 400 MG PO BID, (Reported) TAKES AM/1600 Hydrocodone/Acetaminophen (Hydrocodone-Acetamin 10-325 mg) 1 Each Tablet, 2 TAB PO BID, (Reported) Multivitamin with Minerals (Hair, Skin and Nails) 1 Each Tablet, 1 TAB PO DAILY, (Reported) Paroxetine HCl (Paroxetine HCl) 20 Mg Tablet, 20 MG PO DAILY, (Reported) Potassium Chloride (Potassium Chloride) 10 Meq Tab.er.prt, 10 MEQ PO DAILY, (Reported) Psyllium Husk/Aspartame (Metamucil Fiber Singles Packet) 3.4 Gm Powd.pack, 1 PKT PO DAILY, (Reported) Rosuvastatin Calcium (Crestor) 40 Mg Tablet, 40 MG PO DAILY, (Reported) diphenhydrAMINE HCl (diphenhydrAMINE HCl) 25 Mg Tablet, 50 MG PO QHS, (Reported) Scheduled PRN Acetaminophen/Caffeine (Tension Headache Caplet) 1 Each Tablet, 1 TAB PO DAILY PRN for HEADACHE, (Reported) Allergies Coded Allergies: Penicillins (Verified Allergy, Mild, rash, 08/26/18) aspirin (Verified Allergy, Mild, rash, 08/26/18) atorvastatin (Verified Allergy, Unknown, 08/26/18) rivaroxaban (Verified Adverse Reaction, Unknown, GI BLEED, 07/26/20) JOSIANE MAX MD August 13, 2020 12:28
[2020-08-18] MEDS ORDERED: FIDAXOMICIN 200 MG TAB (DIFICID) PO SCH (09:00)
[2020-08-23] MEDS ORDERED: FIDAXOMICIN 200 MG TAB (DIFICID) PO SCH (09:00)
== END 2020-08-13 12:35 | disposition home or self-care (01) | DRG 373 ==
LOC: EDBD 11:04 → M ED 11:04 → M ED INP 15:05 → ENRESERV 16:04 → M MS5PR 16:55
PROVIDERS: ADMIT Neuromusculoskeletal Medicine & OMM; ATTEND Internal Medicine Nephrology
DX: A04.71 Enterocolitis due to Clostridium difficile, recurrent (principal); K57.30 Diverticulosis of large intestine without perforation or abscess without bleeding; I10 Essential (primary) hypertension; F32.9 Major depressive disorder, single episode, unspecified; E55.9 Vitamin D deficiency, unspecified; E78.5 Hyperlipidemia, unspecified; D50.9 Iron deficiency anemia, unspecified; M81.0 Age-related osteoporosis without current pathological fracture; G47.33 Obstructive sleep apnea (adult) (pediatric); Z86.711 Personal history of pulmonary embolism; F03.90 Unspecified dementia, unspecified severity, without behavioral disturbance, psychotic disturbance, mood disturbance, and anxiety; Z79.899 Other long term (current) drug therapy; Z88.0 Allergy status to penicillin; Z88.6 Allergy status to analgesic agent; Z88.8 Allergy status to other drugs, medicaments and biological substances; Z89.022 Acquired absence of left finger(s)

== ENCOUNTER 2020-08-14 15:12 | Outpatient (CLI) | payer MEDICARE ==
[~2020-08-14] VITALS: Ht 152.4 cm; Wt 77.0 kg
[2020-08-14 15:27] VITALS: BP 113/58
[2020-08-14] MEDS ORDERED: BEZLOTOXUMAB 800 MG in NS 100 ML IV ONE (16:00)
[2020-08-14 16:50] VITALS: BP 126/66
== END 2020-08-14 16:50 | disposition home or self-care (01) ==
LOC: M INFU 15:12
PROVIDERS: ATTEND Internal Medicine Infectious Disease
DX: A04.71 Enterocolitis due to Clostridium difficile, recurrent (principal)
CPT/HCPCS: 96365; J0565

== ENCOUNTER → 2020-08-22 | Outpatient (REF) | payer MEDICARE ==
[2020-08-22 13:35] LABS: CLOSTRIDIUM DIFFICILE PCR NEGATIVE (NEGATIVE)
== END ==
LOC: M LAB REF 10:53
PROVIDERS: ATTEND Internal Medicine Infectious Disease
DX: A04.71 Enterocolitis due to Clostridium difficile, recurrent (principal)

== ENCOUNTER → 2020-08-27 | Outpatient (CLI) | payer MEDICARE | LOC: M LABSMTC 13:52 | PROVIDERS: ATTEND Anesthesiology | DX: Z01.818 Encounter for other preprocedural examination (principal); Z11.52 Encounter for screening for COVID-19 ==

== ENCOUNTER 2020-09-01 12:51 | Day surgery (SDC) | payer MEDICARE ==
[~2020-09-01] VITALS: Ht 154.9 cm; Wt 71.7 kg
[~2020-09-01 12:51] MED LIST changes: +FECAL MICROBIOTA PREPARATION 250 ML BTL (J3590) XX ONE; +NS 1,000 ML IV ONE
--- NOTE | 2020-09-01 16:17 | ROOR ---
Patient Name: Eva Scherer Procedure Date: 09/01/2020 3:40 PM Date of : 1935 Age: 84 Room: [facility] Gender: Female Note Status: Finalized Procedure: Colonoscopy Indications: Fecal transplant for treatment of recurrent Clostridium difficile diarrhea Providers: Edinson Taylor MD Referring MD: Jorge Fischer MD Requesting Provider: Medicines: Monitored Anesthesia Care Complications: No immediate complications. Procedure: Pre-Anesthesia Assessment: - Prior to the procedure, a History and Physical was performed, and patient medications and allergies were reviewed. The patient is competent. The risks and benefits of the procedure and the sedation options and risks were discussed with the patient. All questions were answered and informed consent was obtained. Patient identification and proposed procedure were verified by the physician, the nurse and the anesthesiologist in the procedure room. Mental Status Examination: alert and oriented. Airway Examination: normal oropharyngeal airway and neck mobility. Respiratory Examination: clear to auscultation. CV Examination: normal. Prophylactic Antibiotics: The patient does not require prophylactic antibiotics. Prior Anticoagulants: The patient has taken no previous anticoagulant or antiplatelet agents. ASA Grade Assessment: III - A patient with severe systemic disease. After reviewing the risks and benefits, the patient was deemed in satisfactory condition to undergo the procedure. The anesthesia plan was to use monitored anesthesia care (MAC). Immediately prior to administration of medications, the patient was re-assessed for adequacy to receive sedatives. The heart rate, respiratory rate, oxygen saturations, blood pressure, adequacy of pulmonary ventilation, and response to care were monitored throughout the procedure. The physical status of the patient was re-assessed after the procedure. The Colonoscope was introduced through the anus and advanced to the cecum, identified by appendiceal orifice and ileocecal valve. The colonoscopy was performed without difficulty. The patient tolerated the procedure well. The quality of the bowel preparation was good. The terminal ileum, ileocecal valve, appendiceal orifice, and rectum were photographed. Scope insertion time was 2 minutes. Scope withdrawal time was 4 minutes. The total duration of the procedure was 6 minutes. Findings: The perianal and digital rectal examinations were normal. Multiple small and large-mouthed diverticula were found from sigmoid to transverse colon. There was no evidence of diverticular bleeding. Normal mucosa was found in the entire colon. The decision was made to proceed with fecal microbiota transplant (bacteriotherapy). Donor stool was supplied by [employer] (purchased frozen stool), Donor/Unit ID # [id number], and prepared using water as per protocol. Approximately 250 mL of the donor stool was instilled in the cecum. A detailed colonoscopic exam could not be performed upon scope withdrawal secondary to limited visibility from the instilled stool. This precludes the ability to screen for colon cancer, and the patient was made aware of this prior to the procedure. Impression: - Moderate diverticulosis from sigmoid to transverse colon. There was no evidence of diverticular bleeding. - Normal mucosa in the entire examined colon. - Fecal Microbiota Transplant (Bacteriotherapy) performed in the cecum. - No specimens collected. Recommendation: - Patient has a contact number available for emergencies. The signs and symptoms of potential delayed complications were discussed with the patient. Return to normal activities tomorrow. Written discharge instructions were provided to the patient. - High fiber diet. - Continue present medications. - Discontinue laxatives. - Telephone GI clinic if symptomatic in 1 week. - Repeat colonoscopy is not recommended due to current age (66 years or older) for screening purposes and depending on clinical and functional status. - Return to primary care physician. Procedure Code(s): --- Professional --- 61823, Colonoscopy, flexible; diagnostic, including collection of specimen(s) by brushing or washing, when performed (separate procedure) 24393, Preparation of fecal microbiota for instillation, including assessment of donor specimen Diagnosis Code(s): --- Professional --- A04.71, Enterocolitis due to Clostridium difficile, recurrent K57.30, Diverticulosis of large intestine without perforation or abscess without bleeding CPT copyright 2019 [employer]. All rights reserved. The codes documented in this report are preliminary and upon medical biller/coder review may be revised to meet current compliance requirements. Edinson Taylor MD Edinson Taylor MD 09/01/2020 4:17:03 PM Electronically signed by Edinson Taylor MD Number of Addenda: 0 Note Initiated On: 09/01/2020 3:40 PM Estimated Blood Loss: Estimated blood loss: none.
[2020-09-01 16:25] VITALS: BP 159/91
== END 2020-09-01 16:51 | disposition home or self-care (01) ==
LOC: M OPP 12:51
PROVIDERS: ATTEND Internal Medicine Gastroenterology
DX: A04.71 Enterocolitis due to Clostridium difficile, recurrent (principal); K57.30 Diverticulosis of large intestine without perforation or abscess without bleeding; Z79.891 Long term (current) use of opiate analgesic; Z79.899 Other long term (current) drug therapy; Z88.0 Allergy status to penicillin; Z88.8 Allergy status to other drugs, medicaments and biological substances

== ENCOUNTER 2020-09-07 12:16 | Inpatient (IN) | payer MEDICARE ==
[~2020-09-07] VITALS: Ht 154.9 cm; Wt 72.8 kg
[~2020-09-07 12:16] MED LIST changes: -FECAL MICROBIOTA PREPARATION 250 ML BTL (J3590) XX ONE; -NS 1,000 ML IV ONE
[2020-09-07] MEDS ORDERED: ONDANSETRON 4MG/2ML VIAL IV ONE (13:15)
[2020-09-07] MEDS ORDERED: NS 500 ML IV ONE (13:15)
[2020-09-07 13:55] LABS: BASO % 0.4 % (0.0-1.0); EOS # 0.1 10^3/uL (0.0-0.5); EOS % 1.1 % (0.0-3.0); HEMATOCRIT 41.3 % (36.0-47.0); HEMOGLOBIN 12.8 g/dl (12.0-15.5); LYMPH # 1.8 10^3/uL (1.5-5.0); LYMPH % 19.6 % (24.0-44.0); MEAN CORPUSCULAR HEMOGLOBIN 30.3 pg (27.0-33.0); MEAN CORPUSCULAR VOLUME 97.9 fl (80.0-96.0); MONO # 0.7 10^3/uL (0.0-0.8); MONO % 6.9 % (2.0-8.0); NEUTROPHILS # 6.7 10^3/uL (1.5-8.5); NEUTROPHILS % 71.5 % (36.0-66.0); PLATELET COUNT, AUTOMATED 319 10^3/uL (150-450); RED BLOOD COUNT 4.22 10^6/uL (4.00-5.40); WHITE BLOOD COUNT 9.4 10^3/uL (4.0-10.0)
[2020-09-07 14:23] LABS: ALBUMIN 3.4 GM/DL (3.2-5.2); BILIRUBIN,DIRECT 0.1 MG/DL (0.0-0.2); BILIRUBIN,TOTAL 0.4 MG/DL (0.2-1.0); TOTAL PROTEIN 6.4 GM/DL (6.4-8.2)
[2020-09-07] MEDS: NS 1,000 ML IV SCH (15:20)
[2020-09-07 15:34] LABS: RSV AMPLIFICATION NEGATIVE (NEGATIVE)
[2020-09-07 16:54] VITALS: BP 147/75
[2020-09-07] MEDS: GABAPENTIN 400MG CAP PO SCH (17:45)
[2020-09-07] MEDS: COLESEVELAM 625 MG TAB (WELCHOL) PO SCH (18:00)
[2020-09-07] MEDS ORDERED: CYCLOBENZAPRINE 5MG TABLET PO SCH (21:00)
[2020-09-07] MEDS ORDERED: RAMELTEON 8 MG TAB (ROZEREM) PO PRN (21:45)
[2020-09-07 22:00] VITALS: BP 136/79
[2020-09-08] MEDS: NS 1,000 ML IV SCH ×4 (01:01→20:59)
[2020-09-08 06:00] VITALS: BP 111/58
--- NOTE | 2020-09-08 06:30 | HPEPDOC ---
[facility] Medical History & Physical Date of Admission Sep 07, 2020 Date of Service: Sep 07, 2020 History and Physical CHIEF COMPLAINT: Recurrent diarrhea HISTORY OF PRESENT ILLNESS: 84-year-old female with extensive medical history including recurrent resistant Clostridium diarrhea. She recently had fecal transplant on 09/01/2020. This will be her fifth hospital admission this year for diarrhea. She was recently discharged from the hospital on August 13 after a 4 day stay for diarrhea. Prior to that she was admitted on July 31 discharged on August 08. She recently had Zinplava treatment. She returns again for diarrhea. Denies chest pain, shortness of breath, N/V/D, headaches. 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 Neck surgery and back surgery in [place] Melanoma excision. Hysterectomy. 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 Bladder suspension. Cholecystectomy. Carpal tunnel release SOCIAL HISTORY: Reviewed and noncontributory. FAMILY HISTORY: . Her mother has a history of breast cancer. Her father has a history of alcoholic liver disease ALLERGIES: Please see below. REVIEW OF SYSTEMS: Negative except as per HPI. HOME MEDICATIONS: Please see below. PHYSICAL EXAMINATION: VITAL SIGNS: Please see below. General: NAD, lying comfortably in bed HEENT: NC/AT, EOMI, edentulous Lungs: CTA B/L Heart: +S1S2, RRR, -M/R/G Abd: soft, NT, +BS Ext: no edema Neuro: no gross focal deficits Psych: AAOx3 LABORATORY DATA: See below. MICROBIOLOGY: Please see below. A/P: 84-year-old female presents to the hospital for recurrent diarrhea. Patient has extensive medical history and current, including recurrent C. difficile colitis, status post multiple fecal transplants, Dificid and zinplava. #Recurrent diarrhea/recurrent C. diff colitis - s/p #fecal transplant 09/01/2020 - pending ID/GI consultation #HTN - zebeta #Hx of PE/off of anticoagulation #Impaired fasting glucose - full liquid diet for now as above #DLP - crestor #LATANYA not on CPAP #Iron deficiency anemia - oral iron supplementation #Dementia, mild #Vitamin D deficiency #Osteoporosis #Chronic back pain #Depression / Insomnia - continue home meds #GERD/avoid PPI DVT prophylaxis - mechanical Vital Signs Vital Signs Date Time Temp Pulse Resp B/P (MAP) Pulse Ox O2 Delivery O2 Flow Rate FiO2 09/07/20 12:17 97.5 63 19 144/68 (93) 97 Room Air Laboratory Data Labs 24H Laboratory Tests 2 09/07/20 13:37: Immature Granulocyte % (Auto) 0.5, Neutrophils (%) (Auto) 71.5H, Lymphocytes (%) (Auto) 19.6L, Monocytes (%) (Auto) 6.9, Eosinophils (%) (Auto) 1.1, Basophils (%) (Auto) 0.4, Neutrophils # (Auto) 6.7, Lymphocytes # (Auto) 1.8, Monocytes # (Auto) 0.7, Eosinophils # (Auto) 0.1, Basophils # (Auto) 0.0, Nucleated Red Blood Cells % (auto) 0.0, Total Bilirubin 0.4, Direct Bilirubin 0.1, Aspartate A román Transf (AST/SGOT) 15, Alanine Aminotransferase (ALT/SGPT) 21, Alkaline Phosphatase 70, Total Protein 6.4, Albumin 3.4, Albumin/Globulin Ratio 1.1L, Lipase 283 09/07/20 13:39: POC Glucose (Misc Panel) 132H, POC Sodium (Misc Panel) 139, POC Potassium (Misc Panel) 4.1, POC Chloride (Misc Panel) 105, POC Total CO2 (Misc Panel) 25.0, POC Blood Urea Nitrogen (Misc Panel 11, POC Ionized Calcium (Misc Panel) 5.5H, POC Creatinine (Misc Panel) 0.9, POC Hematocrit (Misc Panel) 40.0 09/07/20 14:48: CBC/BMP Laboratory Tests 09/07/20 13:37 Home Medications Scheduled Bisoprolol Fumarate (Bisoprolol Fumarate) 10 Mg Tablet, 10 MG PO DAILY C,E,Zinc,Copper 24/Om3/Lut/Eloy (Ocuvite Adult 50 Plus Softgel) 1 Each Capsule, 1 CAP PO DAILY Cholecalciferol (Vitamin D3) (Vitamin D3) 1,000 Unit Tablet, 2,000 UNITS PO DAILY Colesevelam HCl (Colesevelam HCl) 625 Mg Tablet, 625 MG PO BIDWM Cyclobenzaprine HCl (Cyclobenzaprine HCl) 5 Mg Tablet, 5 MG PO QHS Famotidine (Famotidine) 20 Mg Tablet, 20 MG PO DAILY Ferrous Sulfate (Ferrous Sulfate) 325 Mg Tablet.dr, 325 MG PO Q2D Gabapentin (Gabapentin) 400 Mg Capsule, 400 MG PO BID TAKES AM/1600 Hydrocodone/Acetaminophen (Hydrocodone-Acetamin 10-325 mg) 1 Each Tablet, 2 TAB PO BID Multivitamin with Minerals (Hair, Skin and Nails) 1 Each Tablet, 1 TAB PO DAILY Paroxetine HCl (Paroxetine HCl) 20 Mg Tablet, 20 MG PO DAILY Potassium Chloride (Potassium Chloride) 10 Meq Tab.er.prt, 10 MEQ PO DAILY Psyllium Husk/Aspartame (Metamucil Fiber Singles Packet) 3.4 Gm Powd.pack, 1 PKT PO DAILY Rosuvastatin Calcium (Crestor) 40 Mg Tablet, 40 MG PO DAILY diphenhydrAMINE HCl (diphenhydrAMINE HCl) 25 Mg Tablet, 50 MG PO QHS Scheduled PRN Acetaminophen/Caffeine (Tension Headache Caplet) 1 Each Tablet, 1 TAB PO DAILY PRN for HEADACHE Allergies Coded Allergies: Penicillins (Verified Allergy, Mild, rash, 08/26/18) aspirin (Verified Allergy, Mild, rash, 08/26/18) atorvastatin (Verified Allergy, Unknown, 08/26/18) rivaroxaban (Verified Adverse Reaction, Unknown, GI BLEED, 07/26/20) A-FIB/CHADSVASC A-FIB History Current/History of A-Fib/PAF?: No ARGENIS HOLMAN MD Sep 07, 2020 15:16
[2020-09-08] MEDS: COLESEVELAM 625 MG TAB (WELCHOL) PO SCH (08:00)
[2020-09-08 08:22] LABS: HEMATOCRIT 34.7 % (36.0-47.0); HEMOGLOBIN 10.4 g/dl (12.0-15.5); MEAN CORPUSCULAR HEMOGLOBIN 29.9 pg (27.0-33.0); MEAN CORPUSCULAR VOLUME 99.7 fl (80.0-96.0); PLATELET COUNT, AUTOMATED 245 10^3/uL (150-450); RED BLOOD COUNT 3.48 10^6/uL (4.00-5.40); WHITE BLOOD COUNT 7.3 10^3/uL (4.0-10.0)
[2020-09-08 08:39] LABS: ALBUMIN 2.8 GM/DL (3.2-5.2); ALT/SGPT 17 U/L (12-78); BILIRUBIN,TOTAL 0.3 MG/DL (0.2-1.0); BLOOD UREA NITROGEN 11 MG/DL (7-18); CALCIUM LEVEL 8.8 MG/DL (8.8-10.2); CARBON DIOXIDE LEVEL 22 MEQ/L (21-32); CHLORIDE LEVEL 111 MEQ/L (98-107); CREATININE FOR GFR 0.53 MG/DL (0.55-1.30); GLOMERULAR FILTRATION RATE > 60.0 (>32); GLUCOSE, FASTING 96 MG/DL (70-100); POTASSIUM SERUM 3.9 MEQ/L (3.5-5.1); SODIUM LEVEL 141 MEQ/L (136-145); TOTAL PROTEIN 5.2 GM/DL (6.4-8.2)
[2020-09-08] MEDS ORDERED: VITAMIN D 1,000 INTERNATIONAL UNITS TABLET PO SCH (09:00)
[2020-09-08] MEDS ORDERED: OCUVITE 1 TAB PO SCH (09:00)
[2020-09-08] MEDS ORDERED: FERROUS SULFATE 325MG TAB PO SCH (09:00)
[2020-09-08] MEDS ORDERED: ROSUVASTATIN 10 MG TAB (CRESTOR) PO SCH (09:00)
[2020-09-08] MEDS ORDERED: POTASSIUM CHLORIDE 10 MEQ SR TABLET PO SCH (09:00)
[2020-09-08] MEDS ORDERED: FAMOTIDINE 20 MG TAB PO SCH (09:00)
[2020-09-08] MEDS ORDERED: METAMUCIL (PSYLLIUM) PACKET PO SCH (09:00)
[2020-09-08 09:57] VITALS: BP 110/60
[2020-09-08] MEDS: GABAPENTIN 400MG CAP PO SCH ×2 (09:58→16:13)
[2020-09-08] MEDS: PARoxetine 20MG TABLET PO SCH (09:58)
[2020-09-08] MEDS: bisoproloL fumarate 10 MG TAB PO SCH (10:00)
[2020-09-08 14:00] VITALS: BP 117/52
[2020-09-08 22:00] VITALS: BP 131/61
--- NOTE | 2020-09-08 23:15 | IPNPDOC ---
Text Note Date of Service The patient was seen on 09/08/20. NOTE Subjective: Patient seen and examined at bedside. No acute overnight events reported. Patient voices no new medical complaints this morning. PHYSICAL EXAMINATION: VITAL SIGNS: Please see below. General: NAD, lying comfortably in bed HEENT: NC/AT, EOMI, edentulous Lungs: CTA B/L Heart: +S1S2, RRR, -M/R/G Abd: soft, NT, +BS Ext: no edema Neuro: no gross focal deficits Psych: AAOx3 LABORATORY DATA: See below. MICROBIOLOGY: Please see below. A/P: 84-year-old female presents to the hospital for recurrent diarrhea. Patient has extensive medical history and current, including recurrent C. difficile colitis, status post multiple fecal transplants, Dificid and zinplava. #Recurrent diarrhea/recurrent C. diff colitis - s/p #fecal transplant 09/01/2020 - discussed with GI - regular diet, discontinue all meds as possible, repeat CDiff, no abx #HTN - zebeta #Hx of PE/off of anticoagulation #Impaired fasting glucose - monitor blood sugars - implement ISS if needed #DLP - crestor #LATANYA not on CPAP #Iron deficiency anemia - oral iron supplementation #Dementia, mild #Vitamin D deficiency #Osteoporosis #Chronic back pain #Depression / Insomnia - continue home meds #GERD/avoid PPI #DVT prophylaxis - mechanical Disposition: pending clinical improvement VS,Fishbone, I+O VS, Fishbone, I+O Laboratory Tests 09/08/20 06:52 Vital Signs Date Time Temp Pulse Resp B/P (MAP) Pulse Ox O2 Delivery O2 Flow Rate FiO2 09/08/20 14:00 97.1 79 16 117/52 (73) 92 Room Air I&O- Last 24 Hours up to 6 AM 09/08/20 06:00 Intake Total 2150 ml Output Total 0 ml Balance 2150 ml ARGENIS HOLMAN MD Sep 08, 2020 23:15
[2020-09-09] MEDS: RAMELTEON 8 MG TAB (ROZEREM) PO PRN ×2 (00:59→20:34)
[2020-09-09] MEDS ORDERED: FIORICET TAB PO ONE (05:25)
[2020-09-09 06:00] VITALS: BP 145/78
[2020-09-09 06:11] LABS: BASO # 0.1 10^3/uL (0.0-0.2); BASO % 0.8 % (0.0-1.0); EOS # 0.3 10^3/uL (0.0-0.5); EOS % 3.8 % (0.0-3.0); HEMATOCRIT 36.5 % (36.0-47.0); LYMPH # 2.2 10^3/uL (1.5-5.0); LYMPH % 33.1 % (24.0-44.0); MEAN CORPUSCULAR HEMOGLOBIN 30.1 pg (27.0-33.0); MEAN CORPUSCULAR HGB CONC 30.1 g/dl (32.0-36.5); MEAN CORPUSCULAR VOLUME 99.7 fl (80.0-96.0); MONO # 0.6 10^3/uL (0.0-0.8); NEUTROPHILS # 3.5 10^3/uL (1.5-8.5); PLATELET COUNT, AUTOMATED 246 10^3/uL (150-450); RED BLOOD COUNT 3.66 10^6/uL (4.00-5.40); WHITE BLOOD COUNT 6.6 10^3/uL (4.0-10.0)
[2020-09-09 06:29] LABS: ALBUMIN 2.6 GM/DL (3.2-5.2); ALT/SGPT 19 U/L (12-78); BILIRUBIN,TOTAL 0.3 MG/DL (0.2-1.0); BLOOD UREA NITROGEN 7 MG/DL (7-18); CALCIUM LEVEL 8.7 MG/DL (8.8-10.2); CARBON DIOXIDE LEVEL 24 MEQ/L (21-32); CHLORIDE LEVEL 114 MEQ/L (98-107); CREATININE FOR GFR 0.48 MG/DL (0.55-1.30); GLOMERULAR FILTRATION RATE > 60.0 (>32); GLUCOSE, FASTING 103 MG/DL (70-100); POTASSIUM SERUM 3.4 MEQ/L (3.5-5.1); SODIUM LEVEL 143 MEQ/L (136-145); TOTAL PROTEIN 5.4 GM/DL (6.4-8.2)
[2020-09-09] MEDS: NS 1,000 ML IV SCH (07:32)
[2020-09-09] MEDS ORDERED: METAMUCIL (PSYLLIUM) PACKET PO SCH (09:00)
[2020-09-09] MEDS: GABAPENTIN 400MG CAP PO SCH ×2 (09:05→15:56)
[2020-09-09] MEDS: PARoxetine 20MG TABLET PO SCH (09:05)
[2020-09-09] MEDS: bisoproloL fumarate 10 MG TAB PO SCH (09:07)
--- NOTE | 2020-09-09 10:24 | CR ---
INFECTIOUS DISEASE CONSULTATION DATE: 09/08/2020 REASON FOR CONSULTATION: Asked to consult for recurrent diarrhea. HISTORY OF PRESENT ILLNESS: Mrs. Scherer is an 84-year-old female with a history of recurrent C. difficile diarrhea since 2016. The patient's most recent episode was in July of 2020 where she was hospitalized on three different occasions in July with persistent diarrhea. She was treated with at least 17 days of p.o. Fidaxomicin between the inpatient and the outpatient and then a tapering schedule of Dificid. She also received I.V. Bezlotoxumab on August 14 after discharge from the hospital. The patient had persistent diarrhea in spite her treatments and underwent a stool transplantation on 09/01/[address] Taylor. He noted in his colonoscopy that she had normal mucosa. The patient had no fever or chills, but had incontinent diarrhea at home and therefore was brought back to the hospital. Since admission, she has not had a stool sent for C. diff. She is not on medication. At this point, she is receiving I.V. fluid. PAST MEDICAL HISTORY: Recurrent diarrhea with C. difficile diagnosed on 07/19/2016, 05/19/2019, 04/11/2020, 08/14/2020, stool transplantation September [address] Taylor, I.V. Bezlotoxumab infusion 08/15/2019, history of hypertension, pulmonary embolism, history of impaired glucose tolerance, dyslipidemia, obstructive sleep apnea not on CPAP, iron deficiency anemia, dementia, Vitamin D deficiency, osteoporosis, chronic degenerative disc disease, depression, insomnia, GERD. PAST SURGICAL HISTORY: Right total knee arthroplasty, neck surgery, back surgery, melanoma excision, hysterectomy, left third and fourth finger amputation, sinus surgery, bladder suspension, cholecystectomy, carpal tunnel release. SOCIAL HISTORY: She is , she lives with her . She has two daughters that are very supportive; Christelle and Su. MEDICATIONS: 1. Paxil 20 mg daily. 2. Bisoprolol 10 mg p.o. daily. 3. Gabapentin 400 mg p.o. b.i.d. 4. Multivitamin one tablet daily. 5. Vitamin D. 6. Pepcid; which has been held as well as Welchol. LABORATORY DATA: White count 7.3, hemoglobin 10.4, hematocrit 34.7, platelets 245,000. Sodium 141, potassium 3.9, chloride 111, bicarb 22, BUN 11, creatinine 0.53, glucose 96. Calcium 8.8. Bilirubin 0.3. AST 19, ALT 17, alkaline phosphatase 59. Albumin 2.8. Lipase 283. SARS-CoV2 negative. PHYSICAL EXAMINATION: GENERAL: She is a pleasant elderly female in no acute distress. HEART: Normal S1, S2, distant. No murmurs, rubs or gallops. LUNGS: Clear. No wheezes, rales or rhonchi. Diminished breath sounds at the bases. ABDOMEN: Soft, nontender. No hepatosplenomegaly. Bowel sounds present. EXTREMITIES: No cyanosis, clubbing or edema. NEUROLOGIC: Exam normal. IMPRESSION: This is an 84-year-old female with a history of recurrent C. difficile colitis for at least four years, most recently in July of 2020, treated with prolonged course of Fidaxomicin and Bezlotoxumab I.V. infusion, treated with stool transplantation on September 01 and admitted again with diarrhea. Although she has had diarrhea, they have not sent a stool. She is not dehydrated. She does not have a white count or a fever. Currently receiving I.V. fluid and antibiotics are being held. PLAN: Agree with Dr. Taylor. I have discussed the case with him. We will first obtain a diagnosis and obtain a stool specimen. Agree on holding all medications to make sure they are not the culprit causing the diarrhea. If stool for C. diff is positive again, we will do a prolonged course of Fidaxomicin taper again over 6-8 week course or possibly vancomycin tapering. Have her discuss the case with her nurses. We will make sure a stool is sent today.
[2020-09-09] MEDS: CYCLOBENZAPRINE 5MG TABLET PO PRN (12:47)
[2020-09-09] MEDS ORDERED: POTASSIUM CHLORIDE 10 MEQ SR TABLET PO ONE (14:20)
[2020-09-09 15:09] LABS: MAGNESIUM LEVEL 1.6 MG/DL (1.8-2.4)
[2020-09-09] MEDS: MAG SULF 1GM/100ML (MAG RUN) 1 GM in IV 1 EA IV SCH ×2 (15:56→17:29)
--- NOTE | 2020-09-09 16:50 | IPNPDOC ---
Text Note Date of Service The patient was seen on 09/09/20. NOTE Subjective: Patient is atrial female who presented to the hospital with recurrent diarrhea. Patient has extensive history of multiple episodes of C. difficile colitis, s/p Vancomycin, Dificid. Fecal transplants and Zinplava. Patient was seen and examined at the bedside. Patient was that she has not experienced any diarrhea since yesterday at 10 a.m. She denies any chest pain, shortness breath, palpitations, nausea, vomiting or abdominal pain Objective: Vitals (See below) General: Lying in bed, appears comfortable, AAOx3 HEENT: NC, AT CVS: +S1S2 Lungs: Fair air entry b/l, -w/r/r Abdomen: Soft, ND, NT Extremities: - Edema, - Calf tenderness Assessment and plan: Recurrent diarrhea - resolved. C. difficile colitis; possibly 2/2 irritable bowel syndrome / fecal incontinence - Patient has had resolution of her diarrhea, no bowel movements since yesterday at 10 AM - Physical without any abdominal tenderness - Afebrile - No leukocytosis - s/p fecal transplant 09/01/2020 - GI and ID on consultation; appreciate their input - case discussed Hypokalemia - Will supplement Hypomagnesemia - Will supplement HTN - BP well controlled - c/w Bisoprolol Hx of PE/off - Off of anticoagulation Impaired fasting glucose - Glucose levels have remained appropriate DLP - Statin on hold LATANYA - Not on CPAP Iron deficiency anemia - iron supplementation on hold Dementia, mild - Lives with daughter who provides 24/7 care - Reports of family unable to provide care 24/7 care - PFS on board for [facility] facility - where she can continue to be monitored Vitamin D deficiency Osteoporosis Chronic back pain - c/w Gabapentin - Will start Flexeril Depression / Insomnia - c/w Ramelton and Paroxetine GI prophylaxis - c/w DVT prophylaxis - c/w TEDs/Sequentials Disposition: - Awaiting long-term care/rehabilitation placement - Will transition to ALC status VS,Matthias, I+O VS, Matthias, I+O Laboratory Tests 09/09/20 05:38 Vital Signs Date Time Temp Pulse Resp B/P (MAP) Pulse Ox O2 Delivery O2 Flow Rate FiO2 09/09/20 09:07 91 159/89 09/09/20 06:01 16 09/09/20 06:00 98.0 91 Room Air I&O- Last 24 Hours up to 6 AM 09/09/20 06:00 Intake Total 1700 ml Output Total 400 ml Balance 1300 ml NATHANIEL DE ANDA MD Sep 09, 2020 16:50
--- NOTE | 2020-09-09 19:22 | IPN ---
INFECTIOUS DISEASE PROGRESS NOTE DATE: 09/09/2020 SUBJECTIVE: Eva seems to be doing well. She has a great appetite. She had only two bowel movements today; the second one was very small somewhat formed. No nausea, vomiting or abdominal pain. LABORATORY DATA: White count 6.6, hemoglobin 11, hematocrit 36.5, platelets 246,000, 53% neutrophils, 33% lymphocytes, 9% monocytes. Sodium 143, potassium 3.4, chloride 114, bicarb 24, BUN 7, creatinine 0.48, glucose 103, calcium 8.7. Magnesium 1.6. Albumin 2.6. IMPRESSION: 1. History of recurrent C. difficile colitis with probable post C. difficile irritable bowel syndrome. Patient still has some soft stools. I did discuss with her daughter who was at the bedside, Geno, that she may have diarrhea because of irritable bowel syndrome and to use Lomotil as needed up to four times a day as well as to encourage her mother to drink 2. Mild hypokalemia and hypomagnesemia: Patient received two runs of I.V. magnesium today. PLAN: Continue to monitor diarrhea. Encourage PO intake and Lomotil p.r.n. C. diff was not sent because the patient had only two bowel movements and they were somewhat formed. Order for C. difficile has been cared for. FELIX
[2020-09-10] MEDS: CYCLOBENZAPRINE 5MG TABLET PO PRN ×3 (00:18→21:41)
[2020-09-10 06:00] VITALS: BP 148/81
[2020-09-10 06:26] LABS: BASO % 0.4 % (0.0-1.0); EOS # 0.3 10^3/uL (0.0-0.5); EOS % 3.9 % (0.0-3.0); HEMATOCRIT 34.6 % (36.0-47.0); HEMOGLOBIN 10.9 g/dl (12.0-15.5); LYMPH # 2.3 10^3/uL (1.5-5.0); LYMPH % 27.8 % (24.0-44.0); MEAN CORPUSCULAR HEMOGLOBIN 30.1 pg (27.0-33.0); MEAN CORPUSCULAR HGB CONC 31.5 g/dl (32.0-36.5); MEAN CORPUSCULAR VOLUME 95.6 fl (80.0-96.0); MONO # 0.8 10^3/uL (0.0-0.8); MONO % 9.7 % (2.0-8.0); NEUTROPHILS # 4.7 10^3/uL (1.5-8.5); NEUTROPHILS % 57.7 % (36.0-66.0); PLATELET COUNT, AUTOMATED 263 10^3/uL (150-450); RED BLOOD COUNT 3.62 10^6/uL (4.00-5.40); WHITE BLOOD COUNT 8.2 10^3/uL (4.0-10.0)
[2020-09-10 06:48] LABS: BLOOD UREA NITROGEN 6 MG/DL (7-18); CARBON DIOXIDE LEVEL 26 MEQ/L (21-32); CHLORIDE LEVEL 113 MEQ/L (98-107); CREATININE FOR GFR 0.51 MG/DL (0.55-1.30); GLOMERULAR FILTRATION RATE > 60.0 (>32); GLUCOSE, FASTING 93 MG/DL (70-100); MAGNESIUM LEVEL 2.1 MG/DL (1.8-2.4); POTASSIUM SERUM 3.6 MEQ/L (3.5-5.1); SODIUM LEVEL 143 MEQ/L (136-145)
[2020-09-10] MEDS: bisoproloL fumarate 10 MG TAB PO SCH (09:33)
[2020-09-10] MEDS: GABAPENTIN 400MG CAP PO SCH ×2 (09:33→15:03)
[2020-09-10] MEDS: PARoxetine 20MG TABLET PO SCH (09:33)
[2020-09-10] MEDS ORDERED: CYCL5TAB PO (10:36)
[2020-09-10] MEDS ORDERED: ACET1TAB55 PO (10:36)
[2020-09-10] MEDS ORDERED: RAME8TAB2 PO (10:36)
--- NOTE | 2020-09-10 11:14 | IPNPDOC ---
Text Note Date of Service The patient was seen on 09/10/20. NOTE Subjective: Patient is atrial female who presented to the hospital with recurrent diarrhea. Patient has extensive history of multiple episodes of C. difficile colitis, s/p Vancomycin, Dificid. Fecal transplants and Zinplava. Patient was seen and examined at the bedside. Patient is sitting on commode is reported to have 4 bowel movements today (documented as 2 and 2 - unclear how documentation was completed). Patient has not experienced any nausea, vomiting, abdominal pain, chest pain, shortness breath, palpitations. Objective: Vitals (See below) General: Patient is laying in bed and was sitting up in commode appear to be comfortable, not in any acute distress, awake, alert, oriented 3 HEENT: NC, AT CVS: +S1S2 Lungs: Fair air entry b/l, no visual wheezing, rhonchi or rales Abdomen: Soft, nondistended and nontender Extremities: No evidence of edema, - Calf tenderness Assessment and plan: Recurrent diarrhea - resolved C. difficile colitis; possibly 2/2 irritable bowel syndrome / fecal incontinence - Yesterday 09/09. Patient had 2 formed bowel movements at 2 PM and 6 PM however, this morning it was documented that patient had 4 watery, green bowel movements - Physical without any abdominal tenderness - Afebrile - No leukocytosis - s/p fecal transplant 09/01/2020 - GI and ID on consultation; appreciate their input - Discussed with gastroenterology; will send stool for C. difficile colitis s/p Hypokalemia s/p Hypomagnesemia HTN - BP well controlled - c/w Bisoprolol Hx of PE/off - Off of anticoagulation Impaired fasting glucose - Glucose levels have remained appropriate DLP - Statin on hold LATANYA - Not on CPAP Iron deficiency anemia - Iron supplementation on hold Dementia, mild - Lives with daughter who provides 18/10 care - Family does not want to seek any intermediate or rehabilitation set up and wants to go home only when she is ready for discharge Vitamin D deficiency Osteoporosis Chronic back pain - c/w Gabapentin and Flexeril Depression / Insomnia - c/w Ramelton and Paroxetine DVT prophylaxis - c/w TEDs/Sequentials Disposition: - Awaiting long-term care/rehabilitation placement - Will send stool for analysis after discussion with GI VS,Matthias, I+O VS, Matthias, I+O Laboratory Tests 09/10/20 05:59 Vital Signs Date Time Temp Pulse Resp B/P (MAP) Pulse Ox O2 Delivery O2 Flow Rate FiO2 09/10/20 09:33 89 146/79 09/10/20 06:00 98.2 18 93 Room Air I&O- Last 24 Hours up to 6 AM 09/10/20 06:00 Intake Total 780 ml Output Total 2250 ml Balance -1470 ml NATHANIEL DE ANDA MD Sep 10, 2020 11:14
[2020-09-10] MEDS: RAMELTEON 8 MG TAB (ROZEREM) PO PRN (21:41)
[2020-09-11 06:00] VITALS: BP 140/72
[2020-09-11 06:15] LABS: BASO % 0.3 % (0.0-1.0); EOS # 0.3 10^3/uL (0.0-0.5); EOS % 2.4 % (0.0-3.0); HEMATOCRIT 36.2 % (36.0-47.0); HEMOGLOBIN 11.5 g/dl (12.0-15.5); LYMPH # 2.2 10^3/uL (1.5-5.0); LYMPH % 19.6 % (24.0-44.0); MEAN CORPUSCULAR HEMOGLOBIN 29.9 pg (27.0-33.0); MEAN CORPUSCULAR HGB CONC 31.8 g/dl (32.0-36.5); MEAN CORPUSCULAR VOLUME 94.3 fl (80.0-96.0); MONO % 8.7 % (2.0-8.0); NEUTROPHILS # 7.7 10^3/uL (1.5-8.5); NEUTROPHILS % 68.6 % (36.0-66.0); PLATELET COUNT, AUTOMATED 267 10^3/uL (150-450); RED BLOOD COUNT 3.84 10^6/uL (4.00-5.40); WHITE BLOOD COUNT 11.2 10^3/uL (4.0-10.0)
[2020-09-11 06:44] LABS: BLOOD UREA NITROGEN 8 MG/DL (7-18); CALCIUM LEVEL 9.3 MG/DL (8.8-10.2); CARBON DIOXIDE LEVEL 24 MEQ/L (21-32); CHLORIDE LEVEL 110 MEQ/L (98-107); GLOMERULAR FILTRATION RATE > 60.0 (>32); GLUCOSE, FASTING 111 MG/DL (70-100); POTASSIUM SERUM 3.9 MEQ/L (3.5-5.1); SODIUM LEVEL 140 MEQ/L (136-145)
[2020-09-11] MEDS: PARoxetine 20MG TABLET PO SCH (08:51)
[2020-09-11] MEDS: bisoproloL fumarate 10 MG TAB PO SCH (08:51)
[2020-09-11] MEDS: GABAPENTIN 400MG CAP PO SCH ×2 (08:51→15:25)
--- NOTE | 2020-09-11 09:56 | IPNPDOC ---
Text Note Date of Service The patient was seen on 09/11/20. NOTE Subjective: Patient is atrial female who presented to the hospital with recurrent diarrhea. Patient has extensive history of multiple episodes of C. difficile colitis, s/p Vancomycin, Dificid. Fecal transplants and Zinplava. Patient was seen and examined at the bedside. Denies any chest pain, shortness breath, palpitations. Denies any abdominal pain, nausea, vomiting reported that yesterday she did experience some diarrhea. Again this morning patient is reported a poor sleep - , however she has been getting her sleep aid. Objective: Vitals (See below) General: Sitting up in chair, appears comfortable, reported a "lousy" sleep, awake / alert HEENT: Normocephalic and atraumatic CVS: +S1S2 Lungs: There appears to be fair air entry bilaterally without evidence of wheezing, crackles or rhonchi Abdomen: Abdomen remains soft without any appreciated tenderness or distention Extremities: There is trace pitting edema bilaterally Assessment and plan: Recurrent diarrhea - resolved C. difficile colitis; possibly 2/2 irritable bowel syndrome / fecal incontinence - Yesterday, patient has experienced several episodes of watery diarrhea stool has not been sent for C. 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 LATANYA - Not on CPAP Iron deficiency anemia - Iron supplementation on hold Dementia, mild - Lives with daughter who provides 18/10 care - Family does not want to seek any intermediate or rehabilitation set up and wants to go home only when she is ready for discharge Vitamin D deficiency Osteoporosis Chronic back pain - c/w Gabapentin and Flexeril Depression / Insomnia - c/w Ramelteon and Paroxetine DVT prophylaxis - c/w TEDs/Sequentials Disposition: - Awaiting stool analysis VS,Fishbone, I+O VS, Fishbone, I+O Laboratory Tests 09/11/20 05:58 Vital Signs Date Time Temp Pulse Resp B/P (MAP) Pulse Ox O2 Delivery O2 Flow Rate FiO2 09/11/20 08:51 97 133/76 09/11/20 06:00 98.7 18 94 Room Air I&O- Last 24 Hours up to 6 AM 09/11/20 06:00 Intake Total 1530 ml Output Total 550 ml Balance 980 ml NATHANIEL DE ANDA MD Sep 11, 2020 09:56
[2020-09-11 11:07] LABS: CLOSTRIDIUM DIFFICILE PCR NEGATIVE (NEGATIVE)
[2020-09-11] MEDS ORDERED: LOPERAMIDE 2 MG CAPLET PO PRN (12:05)
[2020-09-11] MEDS: ACETAMINOPHEN TAB 650MG DOSE (2X325MG) PO PRN (12:22)
[2020-09-11] MEDS: LOMOTIL 2.5MG/0.025MG TABLET PO SCH ×3 (12:24→20:01)
[2020-09-11] MEDS: CYCLOBENZAPRINE 5MG TABLET PO PRN (17:09)
--- NOTE | 2020-09-11 17:41 | IPN ---
INFECTIOUS DISEASE PROGRESS NOTE DATE: 09/11/2020 SUBJECTIVE: Eva is in good spirits. She has no nausea, vomiting, abdominal pain. Her appetite is not great. She did not sleep well. She had a stool sent for C-diff which was negative and she has been started on Lomotil one tablet p.o. with meals for presumptive irritable bowel syndrome status post C-difficile colitis. LABORATORY STUDIES: White count 11.2, hemoglobin 11.5, hematocrit 36.2, platelet count 267 with 69% neutrophils, 19% lymphocytes, 8% monocytes. Sodium 140, potassium 3.9, chloride 110, bicarbonate 24, BUN 8, creatinine 0.6, glucose 111, calcium 9.3, magnesium 2. Stool for C-diff was negative on 09/11. IMPRESSION: 1. C-difficile colitis in July of 2020, treated with Fidaxomicin for 20 days, IV Zinplava and stool transplantation. The patient has persistent diarrhea due to irritable bowel syndrome. 2. Irritable bowel syndrome - The patient was started on Lomotil one tablet p.o. a.c. and h.s. PLAN: 1. Infectious Disease is signing off. 2. The patient could be discharged home tomorrow.
[2020-09-11] MEDS: RAMELTEON 8 MG TAB (ROZEREM) PO PRN (19:59)
[2020-09-11] MEDS: NORCO, ANEXSIA 5/325MG TABLET (HYDROcodone/ACETAMINOPHEN) PO SCH (20:00)
[2020-09-12] MEDS ORDERED: diphenhydrAMINE 25MG CAP PO ONE (00:25)
[2020-09-12 05:58] LABS: BASO % 0.4 % (0.0-1.0); EOS # 0.4 10^3/uL (0.0-0.5); EOS % 5.2 % (0.0-3.0); HEMATOCRIT 35.8 % (36.0-47.0); HEMOGLOBIN 11.2 g/dl (12.0-15.5); LYMPH # 2.4 10^3/uL (1.5-5.0); LYMPH % 35.2 % (24.0-44.0); MEAN CORPUSCULAR HEMOGLOBIN 30.3 pg (27.0-33.0); MEAN CORPUSCULAR HGB CONC 31.3 g/dl (32.0-36.5); MEAN CORPUSCULAR VOLUME 96.8 fl (80.0-96.0); MONO # 0.8 10^3/uL (0.0-0.8); MONO % 11.2 % (2.0-8.0); NEUTROPHILS # 3.2 10^3/uL (1.5-8.5); NEUTROPHILS % 47.6 % (36.0-66.0); PLATELET COUNT, AUTOMATED 266 10^3/uL (150-450); WHITE BLOOD COUNT 6.8 10^3/uL (4.0-10.0)
[2020-09-12 06:00] VITALS: BP 110/63
[2020-09-12 06:22] LABS: BLOOD UREA NITROGEN 14 MG/DL (7-18); CALCIUM LEVEL 9.4 MG/DL (8.8-10.2); CARBON DIOXIDE LEVEL 26 MEQ/L (21-32); CHLORIDE LEVEL 110 MEQ/L (98-107); CREATININE FOR GFR 0.62 MG/DL (0.55-1.30); GLOMERULAR FILTRATION RATE > 60.0 (>32); GLUCOSE, FASTING 100 MG/DL (70-100); SODIUM LEVEL 140 MEQ/L (136-145)
[2020-09-12] MEDS: PARoxetine 20MG TABLET PO SCH (08:18)
[2020-09-12] MEDS: GABAPENTIN 400MG CAP PO SCH ×2 (08:18→15:41)
[2020-09-12] MEDS: bisoproloL fumarate 10 MG TAB PO SCH (08:18)
[2020-09-12] MEDS: LOMOTIL 2.5MG/0.025MG TABLET PO SCH ×4 (08:18→21:11)
[2020-09-12] MEDS: NORCO, ANEXSIA 5/325MG TABLET (HYDROcodone/ACETAMINOPHEN) PO SCH ×2 (08:19→21:11)
--- NOTE | 2020-09-12 11:10 | IPNPDOC ---
Text Note Date of Service The patient was seen on 09/12/20. NOTE Subjective: Patient is atrial female who presented to the hospital with recurrent diarrhea. Patient has extensive history of multiple episodes of C. difficile colitis, s/p Vancomycin, Dificid. Fecal transplants and Zinplava. Patient was seen and examined at the bedside. Currently still reports some diarrhea. Reports that her sleep was "lousy." Has not expressed any chest pain, shortness breath, palpitations Objective: Vitals (See below) General: Lying in bed, appears comfortable, not in any acute distress, oriented to person, place HEENT: Normocephalic and atraumatic CVS: +S1S2 Lungs: Air entry is fair bilaterally without evidence of wheezing, crackles or rhonchi Abdomen: Abdomen remains soft without distention or tenderness Extremities: No significant pitting edema Assessment and plan: Recurrent diarrhea - resolved C. difficile colitis; possibly 2/2 irritable bowel syndrome / fecal incontinence - Continues to have some loose bowel movements - No abdominal tenderness - Hemodynamically stable and afebrile - No Leukocytosis - C. 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 LATANYA - Not on CPAP Iron deficiency anemia - Iron supplementation on hold Dementia, mild - Lives with daughter who provides 24/7 care - Family does not want to seek any [facility] or rehabilitation set up and wan ts to go home only when she is ready for discharge Vitamin D deficiency Osteoporosis Chronic back pain - c/w Gabapentin and Flexeril - c/w Percocet PRN Depression / Insomnia - c/w Ramelteon and Paroxetine DVT prophylaxis - c/w TEDs/Sequentials Disposition: - Awaiting for diarrhea to improve VS,Fishbone, I+O VS, Fishbone, I+O Laboratory Tests 09/12/20 05:39 Vital Signs Date Time Temp Pulse Resp B/P (MAP) Pulse Ox O2 Delivery O2 Flow Rate FiO2 09/12/20 08:49 16 09/12/20 08:18 70 114/63 09/12/20 06:00 96.8 94 Room Air I&O- Last 24 Hours up to 6 AM 09/12/20 05:59 Intake Total 730 ml Output Total 0 ml Balance 730 ml NATHANIEL DE ANDA MD Sep 12, 2020 11:10
[2020-09-12] MEDS ORDERED: LOPERAMIDE 2 MG CAPLET PO PRN (16:00)
[2020-09-12] MEDS: METAMUCIL (PSYLLIUM) PACKET PO SCH (21:11)
[2020-09-12] MEDS: RAMELTEON 8 MG TAB (ROZEREM) PO PRN (21:12)
[2020-09-13] MEDS: ACETAMINOPHEN TAB 650MG DOSE (2X325MG) PO PRN (00:50)
[2020-09-13] MEDS: CYCLOBENZAPRINE 5MG TABLET PO PRN ×2 (00:50→20:20)
[2020-09-13 06:00] VITALS: BP 117/62
[2020-09-13 06:54] LABS: BASO % 0.7 % (0.0-1.0); EOS # 0.4 10^3/uL (0.0-0.5); EOS % 5.7 % (0.0-3.0); HEMATOCRIT 35.9 % (36.0-47.0); LYMPH # 2.4 10^3/uL (1.5-5.0); LYMPH % 38.9 % (24.0-44.0); MEAN CORPUSCULAR HEMOGLOBIN 30.1 pg (27.0-33.0); MEAN CORPUSCULAR HGB CONC 30.6 g/dl (32.0-36.5); MEAN CORPUSCULAR VOLUME 98.4 fl (80.0-96.0); MONO # 0.6 10^3/uL (0.0-0.8); NEUTROPHILS # 2.7 10^3/uL (1.5-8.5); NEUTROPHILS % 44.2 % (36.0-66.0); PLATELET COUNT, AUTOMATED 255 10^3/uL (150-450); RED BLOOD COUNT 3.65 10^6/uL (4.00-5.40); WHITE BLOOD COUNT 6.1 10^3/uL (4.0-10.0)
[2020-09-13 07:12] LABS: BLOOD UREA NITROGEN 17 MG/DL (7-18); CALCIUM LEVEL 9.2 MG/DL (8.8-10.2); CARBON DIOXIDE LEVEL 27 MEQ/L (21-32); CHLORIDE LEVEL 108 MEQ/L (98-107); CREATININE FOR GFR 0.66 MG/DL (0.55-1.30); GLOMERULAR FILTRATION RATE > 60.0 (>32); GLUCOSE, FASTING 101 MG/DL (70-100); MAGNESIUM LEVEL 1.9 MG/DL (1.8-2.4); POTASSIUM SERUM 4.1 MEQ/L (3.5-5.1); SODIUM LEVEL 139 MEQ/L (136-145)
[2020-09-13] MEDS: METAMUCIL (PSYLLIUM) PACKET PO SCH ×2 (09:43→20:20)
[2020-09-13] MEDS: GABAPENTIN 100 MG CAP PO SCH ×2 (09:43→16:42)
[2020-09-13] MEDS: NORCO, ANEXSIA 5/325MG TABLET (HYDROcodone/ACETAMINOPHEN) PO SCH ×2 (09:44→20:20)
[2020-09-13] MEDS: PARoxetine 10MG TABLET PO SCH (09:44)
[2020-09-13] MEDS: LOMOTIL 2.5MG/0.025MG TABLET PO SCH ×4 (09:46→20:20)
[2020-09-13] MEDS: bisoproloL fumarate 10 MG TAB PO SCH (09:46)
--- NOTE | 2020-09-13 11:03 | IPNPDOC ---
Text Note Date of Service The patient was seen on 09/13/20. NOTE Subjective: Patient is atrial female who presented to the hospital with recurrent diarrhea. Patient has extensive history of multiple episodes of C. difficile colitis, s/p Vancomycin, Dificid. Fecal transplants and Zinplava. Patient was seen and examined at the bedside. Patient reports that she has had no bowel movements overnight. However, she did have one this morning. Denies any chest pain, shortness breath, palpitations, nausea, vomiting, abdominal pain, denies any urinary discomfort. Reports that her sleep has been poor. Objective: Vitals (See below) General: Patient is lying in bed, appears very comfortable, not in any acute distress, is oriented to person, place and time HEENT: AT, NC CVS: +S1S2 Lungs: There appears to be fair air entry bilaterally without any evidence of wheezing Abdomen: Abdomen is without any distention or tenderness Extremities: No significant lower extremity edema is appreciated Assessment and plan: Recurrent diarrhea - resolved C. difficile colitis; possibly 2/2 irritable bowel syndrome / fecal incontinence - Patient did not have any significant bowel movements overnight, however this morning she had a single bowel movement - No tenderness of abdomen on physical exam - Hemodynamically stable and afebrile - No Leukocytosis - C. 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 - GI and ID on consultation; appreciate their input - c/w Lomotil / Imodium / Metamucil s/p Hypokalemia s/p Hypomagnesemia HTN - BP well controlled - c/w Bisoprolol Hx of PE/off - Off of anticoagulation Impaired fasting glucose - Glucose levels have remained appropriate DLP - Statin on hold LATANYA - Not on CPAP Iron deficiency anemia - Iron supplementation on hold Dementia, mild - Lives with daughter who provides 18/10 care - Family does not want to seek any care home or rehabilitation set up and wants to go home only when she is ready for discharge Vitamin D deficiency Osteoporosis Chronic back pain - c/w Gabapentin and Flexeril - c/w Percocet PRN Depression / Insomnia - c/w Ramelteon and Paroxetine DVT prophylaxis - c/w TEDs/Sequentials Disposition: - Awaiting diarrhea to improve - Specific discharge within 24-48 hours VS,Arelie, I+O VS, Fishbone, I+O Laboratory Tests 09/13/20 06:08 Vital Signs Date Time Temp Pulse Resp B/P (MAP) Pulse Ox O2 Delivery O2 Flow Rate FiO2 09/13/20 10:33 18 09/13/20 09:46 80 134/73 09/13/20 06:00 97.6 91 Room Air I&O- Last 24 Hours up to 6 AM 09/13/20 06:00 Intake Total 1360 ml Output Total 100 ml Balance 1260 ml NATHANIEL DE ANDA MD Sep 13, 2020 11:03
[2020-09-13] MEDS: RAMELTEON 8 MG TAB (ROZEREM) PO PRN (20:20)
[2020-09-14] MEDS ORDERED: diphenhydrAMINE 25MG CAP PO ONE (00:45)
[2020-09-14 06:00] VITALS: BP 118/56
[2020-09-14 06:32] LABS: BASO % 0.7 % (0.0-1.0); EOS # 0.3 10^3/uL (0.0-0.5); EOS % 5.2 % (0.0-3.0); HEMATOCRIT 35.3 % (36.0-47.0); HEMOGLOBIN 10.8 g/dl (12.0-15.5); LYMPH # 1.9 10^3/uL (1.5-5.0); LYMPH % 32.2 % (24.0-44.0); MEAN CORPUSCULAR HEMOGLOBIN 29.8 pg (27.0-33.0); MEAN CORPUSCULAR HGB CONC 30.6 g/dl (32.0-36.5); MEAN CORPUSCULAR VOLUME 97.2 fl (80.0-96.0); MONO # 0.7 10^3/uL (0.0-0.8); MONO % 11.2 % (2.0-8.0); NEUTROPHILS % 50.4 % (36.0-66.0); PLATELET COUNT, AUTOMATED 242 10^3/uL (150-450); RED BLOOD COUNT 3.63 10^6/uL (4.00-5.40)
[2020-09-14 07:02] LABS: BLOOD UREA NITROGEN 16 MG/DL (7-18); CALCIUM LEVEL 9.5 MG/DL (8.8-10.2); CARBON DIOXIDE LEVEL 26 MEQ/L (21-32); CHLORIDE LEVEL 108 MEQ/L (98-107); CREATININE FOR GFR 0.58 MG/DL (0.55-1.30); GLOMERULAR FILTRATION RATE > 60.0 (>32); GLUCOSE, FASTING 102 MG/DL (70-100); MAGNESIUM LEVEL 1.7 MG/DL (1.8-2.4); SODIUM LEVEL 139 MEQ/L (136-145)
[2020-09-14] MEDS ORDERED: MAG SULF 1GM/100ML (MAG RUN) 1 GM in IV 1 EA IV ONE (08:00)
[2020-09-14] MEDS ORDERED: GABA-1171 PO (09:44)
[2020-09-14] MEDS ORDERED: PARO5TAB PO (09:44)
[2020-09-14] MEDS ORDERED: ANTI2TAB16 PO (09:44)
[2020-09-14] MEDS ORDERED: HYDR-4517 PO (09:44)
[2020-09-14] MEDS ORDERED: DIPH2.5T15 PO (09:44)
[2020-09-14] MEDS ORDERED: META1POW PO (09:44)
[2020-09-14] MEDS ORDERED: CYCL5TAB PO (09:47)
--- NOTE | 2020-09-14 09:55 | DS.PDOC ---
Discharge Summary General Date of Admission Sep 07, 2020 at 14:38 Date of Discharge 09/14/2020 Discharge Summary PROCEDURES PERFORMED DURING STAY: [None]. ADMITTING DIAGNOSES / DISCHARGE DIAGNOSES: Recurrent diarrhea - resolved C. difficile colitis; possibly 2/2 irritable bowel syndrome / fecal incontinence s/p Hypokalemia Hypomagnesemia HTN Hx of PE/off Impaired fasting glucose DLP LATANYA Iron deficiency anemia Dementia, mild Vitamin D deficiency Osteoporosis Chronic back pain Depression / Insomnia DVT prophylaxis COMPLICATIONS/CHIEF COMPLAINT: Diarrhea HISTORY OF PRESENT ILLNESS: Patient is atrial female who presented to the hospital with recurrent diarrhea. Patient has extensive history of multiple episodes of C. difficile colitis, s/p Vancomycin, Dificid. Fecal transplants and Zinplava. Patient was seen and examined at the bedside. Patient again has reported a poor sleep but denies any chest pain, shortness breath, palpitations, nausea, vomiting, abdominal pain. Her last bowel movement was yesterday morning at 8AM. HOSPITAL COURSE: Recurrent diarrhea - resolved C. difficile colitis; possibly 2/2 irritable bowel syndrome / fecal incontinence - Patient has not spent any further diarrhea since 8 AM yesterday - No abdominal tenderness noted - Has continued to remain hemodynamically stable and afebrile - No Leukocytosis - C. 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 - c/w Lomotil / Imodium / Metamucil - GI and ID on consultation; Will have outpatient follow-up with gastroenterology and infectious disease within the next 7 days s/p Hypokalemia Hypomagnesemia - Will supplement prior to discharge HTN - BP well controlled - c/w Bisoprolol Hx of PE/off - Off of anticoagulation Impaired fasting glucose - Glucose levels have remained appropriate DLP - Statin on hold LATANYA - Not on CPAP Iron deficiency anemia - Iron supplementation on hold Dementia, mild - Lives with daughter who provides 18/10 care - Family does not want to seek any prison or rehabilitation set up and wants to go home only when she is ready for discharge Vitamin D deficiency - Will have outpatient follow-up with primary care provider Osteoporosis - Will have outpatient follow-up with primary care provider Chronic back pain - c/w Gabapentin and Flexeril at reduced doses - c/w Percocet PRN Depression / Insomnia - c/w Ramelteon and Paroxetine at reduced doses DVT prophylaxis - c/w TEDs/Sequentials DISCHARGE MEDICATIONS: Please see below. ALLERGIES: Please see below. PHYSICAL EXAMINATION ON DISCHARGE: Vitals (See below) General: Patient is laying in bed, appears to be comfortable without any acute distress, is awake and alert, oriented 3 HEENT: Normocephalic and atraumatic CVS: +S1S2 Lungs: Auscultation reveals fair air entry bilaterally without evidence of wheezing, crackles or rhonchi Abdomen: Nondistended, nontender, soft Extremities: Lower extremities are without edema LABORATORY DATA: Please see below. IMAGING: None ACTIVITY: [As tolerated]. DISCHARGE PLAN: Follow-up with primary care provider, gastroenterology and infectious disease within the next 7 days Remain compliant with treatment plan and medications Return to the ER if you experience any problems DISPOSITION: Home with services and 18/10 care provided by her daughter DISCHARGE CONDITION: [Stable]. TIME SPENT ON DISCHARGE: 35 minutes. Vital Signs/I&Os Vital Signs Date Time Temp Pulse Resp B/P (MAP) Pulse Ox O2 Delivery O2 Flow Rate FiO2 09/14/20 06:00 97.6 72 18 118/56 (76) 96 Room Air I&O- Last 24 Hours up to 6 AM 09/14/20 05:59 Intake Total 1580 ml Output Total 400 ml Balance 1180 ml Laboratory Data Labs 24H Laboratory Tests 2 09/14/20 06:12: Immature Granulocyte % (Auto) 0.3, Neutrophils (%) (Auto) 50.4, Lymphocytes (%) (Auto) 32.2, Monocytes (%) (Auto) 11.2H, Eosinophils (%) (Auto) 5.2H, Basophils (%) (Auto) 0.7, Neutrophils # (Auto) 3.0, Lymphocytes # (Auto) 1.9, Monocytes # (Auto) 0.7, Eosinophils # (Auto) 0.3, Basophils # (Auto) 0.0, Nucleated Red Blood Cells % (auto) 0.0, Anion Gap 5L, Glomerular Filtration Rate > 60.0, Calcium Level 9.5, Magnesium Level 1.7L CBC/BMP Laboratory Tests 09/14/20 06:12 Discharge Medications Scheduled Bisoprolol Fumarate (Bisoprolol Fumarate) 10 Mg Tablet, 10 MG PO DAILY, (Repo rted) Cyclobenzaprine HCl (Cyclobenzaprine HCl) 5 Mg Tablet, 5 MG PO QHS Diphenoxylate HCl/Atropine (Diphenoxylate-Atrop 2.5-0.025) 1 Each Tablet, 1 EA PO ACHS Gabapentin (Gabapentin) 100 Mg Capsule, 200 MG PO BID@0900,1600 Hydrocodone/Acetaminophen (Hydrocodone-Acetamin 10-325 mg) 1 Each Tablet, 2 TAB PO BID Paroxetine (Paroxetine HCl) 10 Mg Tablet, 10 MG PO DAILY Psyllium Husk/Aspartame (Metamucil Fiber Singles Packet) 3.4 Gm Powd.pack, 1 PKT PO BID Scheduled PRN Loperamide HCl (Anti-Diarrheal) 2 Mg Tablet, 2 MG PO Q8HP PRN for DIARRHEA Ramelteon (Ramelteon) 8 Mg Tablet, 8 MG PO QHS PRN for INSOMNIA Allergies Coded Allergies: Penicillins (Verified Allergy, Mild, rash, 08/26/18) aspirin (Verified Allergy, Mild, rash, 08/26/18) atorvastatin (Verified Allergy, Unknown, 08/26/18) rivaroxaban (Verified Adverse Reaction, Unknown, GI BLEED, 07/26/20) NATHANIEL DE ANDA MD Sep 14, 2020 09:55
[2020-09-14] MEDS: PARoxetine 10MG TABLET PO SCH (09:56)
[2020-09-14] MEDS: METAMUCIL (PSYLLIUM) PACKET PO SCH (09:56)
[2020-09-14] MEDS: LOMOTIL 2.5MG/0.025MG TABLET PO SCH ×2 (09:56→12:17)
[2020-09-14 09:57] VITALS: BP 128/74
[2020-09-14] MEDS: bisoproloL fumarate 10 MG TAB PO SCH (09:57)
[2020-09-14] MEDS: GABAPENTIN 100 MG CAP PO SCH (09:57)
[2020-09-14] MEDS: NORCO, ANEXSIA 5/325MG TABLET (HYDROcodone/ACETAMINOPHEN) PO SCH (09:58)
== END 2020-09-14 13:50 | disposition home health service (06) | DRG 392 ==
LOC: M ED 12:16 → M ED INP 14:38 → ENRESERV 15:50 → M MSPAV 16:45
PROVIDERS: ADMIT Internal Medicine; ATTEND Internal Medicine
DX: K58.0 Irritable bowel syndrome with diarrhea (principal); I10 Essential (primary) hypertension; R73.01 Impaired fasting glucose; E78.5 Hyperlipidemia, unspecified; G47.33 Obstructive sleep apnea (adult) (pediatric); D50.9 Iron deficiency anemia, unspecified; F03.90 Unspecified dementia, unspecified severity, without behavioral disturbance, psychotic disturbance, mood disturbance, and anxiety; E55.9 Vitamin D deficiency, unspecified; M81.0 Age-related osteoporosis without current pathological fracture; M54.9 Dorsalgia, unspecified; E83.42 Hypomagnesemia; F32.9 Major depressive disorder, single episode, unspecified; E87.6 Hypokalemia; G47.00 Insomnia, unspecified; K21.9 Gastro-esophageal reflux disease without esophagitis; Z96.651 Presence of right artificial knee joint; Z85.820 Personal history of malignant melanoma of skin; Z90.49 Acquired absence of other specified parts of digestive tract; Z89.022 Acquired absence of left finger(s); Z79.891 Long term (current) use of opiate analgesic; Z79.899 Other long term (current) drug therapy; Z88.0 Allergy status to penicillin; Z88.6 Allergy status to analgesic agent; Z88.8 Allergy status to other drugs, medicaments and biological substances

== ENCOUNTER → 2020-09-18 | Outpatient (REF) | payer MEDICARE ==
[~2020-09-18] MED LIST changes: +ACET1TAB55 PO; +ANTI2TAB16 PO; +BENA25CA4 PO; +DIPH2.5T15 PO; +GABA-1171 PO; +LOMO2.5T PO; +LOPE1CAP5 PO; +PARO10TA3 PO; +PARO5TAB PO; +RAME8TAB2 PO; +SUCR1SS PO
[2020-09-18 17:01] LABS: BASO % 0.6 % (0.0-1.0); EOS # 0.3 10^3/uL (0.0-0.5); EOS % 4.8 % (0.0-3.0); HEMATOCRIT 40.5 % (36.0-47.0); HEMOGLOBIN 12.1 g/dl (12.0-15.5); LYMPH # 2.3 10^3/uL (1.5-5.0); LYMPH % 32.6 % (24.0-44.0); MEAN CORPUSCULAR HEMOGLOBIN 30.1 pg (27.0-33.0); MEAN CORPUSCULAR HGB CONC 29.9 g/dl (32.0-36.5); MEAN CORPUSCULAR VOLUME 100.7 fl (80.0-96.0); MONO # 0.6 10^3/uL (0.0-0.8); MONO % 8.8 % (2.0-8.0); NEUTROPHILS # 3.7 10^3/uL (1.5-8.5); NEUTROPHILS % 52.5 % (36.0-66.0); PLATELET COUNT, AUTOMATED 285 10^3/uL (150-450); RED BLOOD COUNT 4.02 10^6/uL (4.00-5.40)
[2020-09-18 17:24] LABS: ALBUMIN 3.3 GM/DL (3.2-5.2); ALT/SGPT 32 U/L (12-78); BILIRUBIN,TOTAL 0.2 MG/DL (0.2-1.0); BLOOD UREA NITROGEN 13 MG/DL (7-18); CALCIUM LEVEL 10.2 MG/DL (8.8-10.2); CARBON DIOXIDE LEVEL 29 MEQ/L (21-32); CHLORIDE LEVEL 107 MEQ/L (98-107); CREATININE FOR GFR 0.63 MG/DL (0.55-1.30); GLOMERULAR FILTRATION RATE > 60.0 (>32); GLUCOSE, FASTING 98 MG/DL (70-100); POTASSIUM SERUM 3.9 MEQ/L (3.5-5.1); SODIUM LEVEL 141 MEQ/L (136-145); TOTAL PROTEIN 6.4 GM/DL (6.4-8.2)
== END ==
LOC: M SFHCPLAZ 14:04
PROVIDERS: ATTEND Physician Assistant Medical
DX: A04.72 Enterocolitis due to Clostridium difficile, not specified as recurrent (principal); Z79.899 Other long term (current) drug therapy
CPT/HCPCS: 36415; 80053; 85025; G0463

== ENCOUNTER 2020-09-26 15:30 | Observation (INO) | payer MEDICARE ==
[~2020-09-26] VITALS: Ht 152.4 cm; Wt 65.4 kg
[~2020-09-26 15:30] MED LIST changes: -BENA25CA4 PO; -LOMO2.5T PO; -LOPE1CAP5 PO; -PARO10TA3 PO; -SUCR1SS PO
[2020-09-26 18:05] LABS: BASO # 0.1 10^3/uL (0.0-0.2); BASO % 0.7 % (0.0-1.0); EOS # 0.2 10^3/uL (0.0-0.5); EOS % 2.6 % (0.0-3.0); HEMATOCRIT 40.7 % (36.0-47.0); HEMOGLOBIN 12.4 g/dl (12.0-15.5); LYMPH # 2.3 10^3/uL (1.5-5.0); LYMPH % 31.8 % (24.0-44.0); MEAN CORPUSCULAR HEMOGLOBIN 30.1 pg (27.0-33.0); MEAN CORPUSCULAR HGB CONC 30.5 g/dl (32.0-36.5); MEAN CORPUSCULAR VOLUME 98.8 fl (80.0-96.0); MONO # 0.7 10^3/uL (0.0-0.8); MONO % 9.5 % (2.0-8.0); NEUTROPHILS # 3.9 10^3/uL (1.5-8.5); PLATELET COUNT, AUTOMATED 317 10^3/uL (150-450); RED BLOOD COUNT 4.12 10^6/uL (4.00-5.40); WHITE BLOOD COUNT 7.2 10^3/uL (4.0-10.0)
--- NOTE | 2020-09-26 18:08 | REPVR ---
PROCEDURE INFORMATION: Exam: CT Abdomen And Pelvis Without Contrast Exam date and time: 09/26/2020 4:58 PM Age: 85 years old Clinical indication: Vomiting; Abdominal pain; Additional info: Luq pain, vomiting TECHNIQUE: Imaging protocol: Computed tomography of the abdomen and pelvis without contrast. Radiation optimization: All CT scans at this facility use at least one of these dose optimization techniques: automated exposure control; mA and/or kV adjustment per patient size (includes targeted exams where dose is matched to clinical indication); or iterative reconstruction. COMPARISON: CT ABD PELVIS W/O CONTRAST 07/31/2020 2:39 PM FINDINGS: Liver: 1.4 cm cyst in the right hepatic lobe unchanged. Gallbladder and bile ducts: Cholecystectomy clips. Pancreas: Normal. No ductal dilation. Spleen: Normal. No splenomegaly. Adrenal glands: Normal. No mass. Kidneys and ureters: 2 cm cyst in the midpole of right kidney. Stomach and bowel: Appropriate diverticulosis of the sigmoid colon. Appendix: No evidence of appendicitis. Intraperitoneal space: Unremarkable. No free air. No significant fluid collection. Vasculature: Unremarkable. No abdominal aortic aneurysm. Lymph nodes: Unremarkable. No enlarged lymph nodes. Urinary bladder: Unremarkable as visualized. Reproductive: Unremarkable as visualized. Bones/joints: Degenerative changes of the spine. Grade 1 anterolisthesis of L4 over L5. Posterior spinal fixation of L4, L5 and S1 vertebra. Soft tissues: Unremarkable. IMPRESSION: No acute abdominal or pelvic abnormality. COMMENTS: Consistent with the [employer]'s Incidental Findings Committee white paper (J Am Katie Radiol 2018): Any incidental renal lesion less than 1 cm or classified as too small to characterize, or any incidental cystic renal lesion characterized as simple-appearing, is likely benign. No follow-up imaging is recommended for these lesions per consensus recommendations based on imaging criteria. Electronically signed by: Khoi Landers On 09/26/2020 18:08:05 PM
[2020-09-26] MEDS: NS 1,000 ML IV SCH ×2 (18:18→18:19)
[2020-09-26 18:26] LABS: ALBUMIN 3.6 GM/DL (3.2-5.2); ALT/SGPT 40 U/L (12-78); BILIRUBIN,DIRECT 0.1 MG/DL (0.0-0.2); BILIRUBIN,TOTAL 0.3 MG/DL (0.2-1.0); BLOOD UREA NITROGEN 14 MG/DL (7-18); CARBON DIOXIDE LEVEL 26 MEQ/L (21-32); CHLORIDE LEVEL 107 MEQ/L (98-107); CK-MB VALUE MASS < 1.0 NG/ML (<3.6); CPK CREATINE PHOSPHOKINASE 58 U/L (26-192); GLOMERULAR FILTRATION RATE > 60.0 (>32); GLUCOSE, FASTING 107 MG/DL (70-100); LIPASE 72 U/L (73-393); MB/CK RELATIVE INDEX 1.72 (< OR =4); SODIUM LEVEL 143 MEQ/L (136-145); TOTAL PROTEIN 6.6 GM/DL (6.4-8.2); TROPONIN I < 0.02 NG/ML (< 0.10)
[2020-09-26] MEDS ORDERED: GABA-1171 PO (19:43)
[2020-09-26] MEDS ORDERED: LOMO2.5T PO (19:43)
[2020-09-26] MEDS ORDERED: PARO10TA3 PO (19:43)
[2020-09-26] MEDS ORDERED: LOPE1CAP5 PO (19:43)
[2020-09-26] MEDS ORDERED: BENA25CA4 PO (19:43)
[2020-09-26] MEDS ORDERED: HYDR-4517 PO (19:43)
[2020-09-26] MEDS ORDERED: MOM 30ML SUSPENSION UDC PO PRN (20:10)
[2020-09-26] MEDS ORDERED: ONDANSETRON 4 MG ORAL DISINTEGRATING TAB PO PRN (20:10)
[2020-09-26] MEDS ORDERED: ACETAMINOPHEN TAB 650MG DOSE (2X325MG) PO PRN (20:10)
[2020-09-26] MEDS ORDERED: MAALOX 30 ML SUSP *UDC PO PRN (20:10)
[2020-09-26] MEDS ORDERED: diphenhydrAMINE 25MG CAP PO PRN (20:15)
[2020-09-26 20:31] LABS: RSV AMPLIFICATION NEGATIVE (NEGATIVE)
--- NOTE | 2020-09-26 20:33 | ECGEPIP ---
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
[2020-09-26] MEDS: DOCUSATE SODIUM 100MG CAPSULE PO SCH (21:00)
--- NOTE | 2020-09-26 21:01 | HPEPDOC ---
[facility] Medical History & Physical Date of Admission Sep 26, 2020 Date of Service: Sep 26, 2020 Attending Physician: EARNEST DO MD MPH History and Physical CHIEF COMPLAINT: vomiting and diarrhea HISTORY OF PRESENT ILLNESS: Mrs. Scherer is an 85 year old female with extensive history of c diff with multiple hospitalizations (this current admission is number 6) with a recent fecal transplant as well as recent completion of a fidaxomicin taper under the guidance of ID who was brought to the ED by her daughter for concern for 1 day of intermittent nausea and emesis and continued diarrhea. Patient states that last night she was preparing to go to bed around 2200 and had taken her night time medications when she had emesis of the pills and some orange stomach contents. She had previously had dinner which consisted of an egg sandwich and tomato soup without any issues. Since that time she has had small episodes of refluxing emesis without any specific provocation but her primary concern currently is continued diarrhea. She has 2-3 bowel movements that are loose, orange in color, and foul smelling. She has taken Lomotil once every day for the past 3 days with no significant improvement in her stool frequency. She has had a firm stool in the past week which is better than prior weeks. Her daughter is concerned about her ability to go home and tolerate PO and would also like her stool checked for c diff. ROS: A 10 point ROS was obtained and was unremarkable except as noted above. PAST MEDICAL PROBLEMS: Recurrent diarrhea/recurrent C. diff colitis s/p fecal transplant HTN Hx of PE/off of anticoagulation Impaired fasting glucose DLP LATANYA not on CPAP Iron deficiency anemia Dementia, mild Vitamin D deficiency Osteoporosis Chronic back pain Depression / Insomnia GERD Osteoarthritis PAST SURGICAL HISTORY: Right total knee arthroplasty. Neck surgery and back surgery in [place] Melanoma excision. Hysterectomy. 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 Bladder suspension. Cholecystectomy. Carpal tunnel release MEDICATIONS: See record SOCIAL HISTORY: LIVES: at home with WORK: retired TOBACCO: denies ALCOHOL: denies PHYSICAL EXAMINATION: VITAL SIGNS: Reviewed, see below GENERAL: well appearing older female, lying in bed, NAD HEENT: AT/NC, EOMI NECK: supple HEART: RRR no M/R/G LUNGS: CTAB with good inspiratory effort ABDOMEN: Soft, obese, non distended, active bowel sounds, very slight TTP in LLQ with area of firmness c/w stool presence : No CVA tenderness to percussion SKIN: warm, dry, no rashes MSK: moving all extremities, weakness of dorsiflexor of right foot NEURO: AOx3, no FND PSYCH: euthymic LABS: reviewed RADIOLOGY: MICROBIOLOGY: C diff positive on 07/26/20 ASSESSMENT: Ms. Scherer is an 85 year old female with history of recurrent c diff and 5 prior hospitalizations including one with fecal transplant followed by ID in the community who was admitted for nausea and vomiting that is now resolved as well as ongoing diarrhea. PLAN: # Nausea and vomiting: This is currently not an active issue since arriving in the ED. History of emesis pattern is concerning for possible difficulty swallowing pills. Patient is now interested in eating food. Her electrolytes are within normal limits on labs today. She received small amount of fluid in the ED. Will hold fluids now and perform nursing bedside swallow evaluation. If any concerns are indicated there, will obtain formal speech evaluation. Meds: Zofran ODT PRN nausea Bedside nursing swallow eval with regular diet if passing Aspiration precautions # Diarrhea: This is a chronic and slightly improved situation. Patient is having 2-3 loose stools most days for the past week and occasional firmer stools however all stools are orange in color and foul smelling. She is closely followed by ID and has stopped antibiotics. Will obtain stool PCR and consult ID if this is positi ve for c diff as patient is not having large quantities of stool, white count, fevers, or imaging results concerning for colitis or toxic perico colon. Meds: None at this time C diff PCR # HTN: Patient is normotensive, continue current medications. Meds: Bisoprolol # HLD: No active concerns # History of PE, no longer on anticoagulation, continue early ambulation, DVT prophylaxis. Meds: None # Depression/insomnia: Euthymic on exam, continue current home medications. Meds: Paroxetine 10mg daily Gabapentin 200mmg po BID # LATANYA, not on CPAP: # Dementia, mild: Perform day/night cycling. #Iron deficiency anemia - oral iron supplementation DISPO: med surg, obs DIET: regular pending swallow eval DVT PROPHY: lovenox DISCHARGE: pending c diff and tolerating PO CONSULTS: None at this time, consider ID consult in the AM Vital Signs Vital Signs Date Time Temp Pulse Resp B/P (MAP) Pulse Ox O2 Delivery O2 Flow Rate FiO2 7/2/21 20:50 74 176/82 (113) 09/26/20 20:30 20 91 Room Air 09/26/20 19:45 97.6 Laboratory Data Labs 24H Laboratory Tests 2 09/26/20 17:50: Immature Granulocyte % (Auto) 0.4, Neutrophils (%) (Auto) 55.0, Lymphocytes (%) (Auto) 31.8, Monocytes (%) (Auto) 9.5H, Eosinophils (%) (Auto) 2.6, Basophils (%) (Auto) 0.7, Neutrophils # (Auto) 3.9, Lymphocytes # (Auto) 2.3, Monocytes # (Auto) 0.7, Eosinophils # (Auto) 0.2, Basophils # (Auto) 0.1, Nucleated Red Blood Cells % (auto) 0.0, Anion Gap 10, Glomerular Filtration Rate > 60.0, Calcium Level 10.0, Total Bilirubin 0.3, Direct Bilirubin 0.1, Aspartate Amino Transf (AST/SGOT) 30, Alanine Aminotransferase (ALT/SGPT) 40, Alkaline Phosphatase 78, Total Creatine Kinase 58, Creatine Kinase MB < 1.0, Creatine Kinase MB Relative Index 1.72, Troponin I < 0.02, Total Protein 6.6, Albumin 3.6, Albumin/Globulin Ratio 1.2, Lipase 72L 09/26/20 19:43: Coronavirus (COVID-19)(PCR) NEGATIVE, Influenza Type A (RT-PCR) NEGATIVE, Influenza Type B (RT-PCR) NEGATIVE, Respiratory Syncytial Virus (PCR) NEGATIVE CBC/BMP Laboratory Tests 09/26/20 17:50 Home Medications Scheduled Bisoprolol Fumarate (Bisoprolol Fumarate) 10 Mg Tablet, 10 MG PO DAILY Diphenoxylate HCl/Atropine (Lomotil 2.5-0.025 mg Tablet) 1 Each Tablet, 1 TAB PO ACHS Gabapentin (Gabapentin) 100 Mg Capsule, 200 MG PO BID Paroxetine HCl (Paroxetine) 10 Mg Tablet, 10 MG PO DAILY Scheduled PRN Diphenhydramine HCl (Benadryl) 25 Mg Capsule, 50 MG PO QHS PRN for SLEEP Hydrocodone/Acetaminophen (Hydrocodone-Acetamin 10-325 mg) 1 Each Tablet, 2 TAB PO BID PRN for PAIN LEVEL 5-10 Loperamide HCl (Loperamide) 2 Mg Capsule, 2 MG PO Q6H PRN for AFTER EACH LOOSE STOOL Allergies Coded Allergies: Penicillins (Verified Allergy, Mild, rash, 08/26/18) aspirin (Verified Allergy, Mild, rash, 08/26/18) atorvastatin (Verified Allergy, Unknown, 08/26/18) rivaroxaban (Verified Adverse Reaction, Unknown, GI BLEED, 07/26/20) A-FIB/CHADSVASC A-FIB History Current/History of A-Fib/PAF?: No Current PO Anticoag Therapy: No Age/Risk Factor Scoring CHADSVASC: CHADSVASC Response (Comments) Value Age Risk Factor Age >/= 75 years old 2 Gender Risk Factor Female 1 Hx of CHF No 0 Hx of HTN Yes 1 Hx of Stroke/TIA/or VTE No 0 Hx of Diabetes No 0 Hx of Vascular Disease No 0 Total 4 Treatment Treatment ordered: Other Other anticoagulant ordered: EARNEST Porras MD MPH Sep 26, 2020 21:01
[2020-09-26] MEDS ORDERED: hydrALAZINE 20MG/ML 1ML VIAL (J0360 PER 20MG) IV ONE (21:15)
[2020-09-26] MEDS: GABAPENTIN 100 MG CAP PO SCH (21:20)
[2020-09-26 22:00] VITALS: BP 143/69
[2020-09-26] MEDS ORDERED: ANEXSIA, NORCO 7.5MG/325MG TABLET(HYDROCODONE/APAP) PO PRN (22:10)
[2020-09-26] MEDS ORDERED: hydrOXYzine 25 MG TAB PO PRN (22:15)
[2020-09-27] MEDS: NS 1,000 ML IV SCH (05:41)
[2020-09-27 06:00] VITALS: BP 139/68
[2020-09-27 06:21] LABS: HEMATOCRIT 39.9 % (36.0-47.0); HEMOGLOBIN 11.8 g/dl (12.0-15.5); MEAN CORPUSCULAR HEMOGLOBIN 29.6 pg (27.0-33.0); MEAN CORPUSCULAR HGB CONC 29.6 g/dl (32.0-36.5); MEAN CORPUSCULAR VOLUME 100.3 fl (80.0-96.0); PLATELET COUNT, AUTOMATED 253 10^3/uL (150-450); RED BLOOD COUNT 3.98 10^6/uL (4.00-5.40); WHITE BLOOD COUNT 6.6 10^3/uL (4.0-10.0)
[2020-09-27 06:45] LABS: BLOOD UREA NITROGEN 13 MG/DL (7-18); CALCIUM LEVEL 9.1 MG/DL (8.8-10.2); CARBON DIOXIDE LEVEL 25 MEQ/L (21-32); CHLORIDE LEVEL 110 MEQ/L (98-107); CREATININE FOR GFR 0.55 MG/DL (0.55-1.30); GLOMERULAR FILTRATION RATE > 60.0 (>32); GLUCOSE, FASTING 98 MG/DL (70-100); POTASSIUM SERUM 3.5 MEQ/L (3.5-5.1); SODIUM LEVEL 141 MEQ/L (136-145)
[2020-09-27] MEDS ORDERED: bisoproloL fumarate 10 MG TAB PO SCH (09:00)
[2020-09-27] MEDS ORDERED: PARoxetine 10MG TABLET PO SCH (09:00)
[2020-09-27] MEDS ORDERED: ENOXAPARIN 40MG/0.4ML SYRINGE (J1650 PER 10MG) SC SCH (09:00)
[2020-09-27] MEDS: DOCUSATE SODIUM 100MG CAPSULE PO SCH (09:52)
[2020-09-27] MEDS: GABAPENTIN 100 MG CAP PO SCH (09:53)
[2020-09-27 09:54] VITALS: BP 114/58
[2020-09-27] MEDS ORDERED: SUCR1SS PO (11:25)
--- NOTE | 2020-09-27 17:31 | DS.PDOC ---
Discharge Summary General Date of Admission Sep 26, 2020 at 15:31 Date of Discharge Sep 27, 2020 Discharge Summary PROCEDURES PERFORMED DURING STAY: None ADMITTING DIAGNOSES: 1. Nausea/Vomiting/Diarrhea 2. Hypertension 3. Depression 4. Insomnia 5. Dementia 6. LATANYA 7. Iron deficiency anemia DISCHARGE DIAGNOSES: 1. Gastroenteritis 2. Hypertension 3. Depression 4. Insomnia 5. Dementia 6. LATANYA 7. Iron deficiency anemia COMPLICATIONS/CHIEF COMPLAINT: C Diff, Vomiting & Diarrhea. HISTORY OF PRESENT ILLNESS: Copied from admitting physician's H&P " Mrs. Scherer is an 85 year old female with extensive history of c diff with multiple hospitalizations (this current admission is number 6) with a recent fecal transplant as well as recent completion of a fidaxomicin taper under the guidance of ID who was brought to the ED by her daughter for concern for 1 day of intermittent nausea and emesis and continued diarrhea. Patient states that last night she was preparing to go to bed around 2200 and had taken her night time medications when she had emesis of the pills and some orange stomach contents. She had previously had dinner which consisted of an egg sandwich and tomato soup without any issues. Since that time she has had small episodes of refluxing emesis without any specific provocation but her primary concern currently is continued diarrhea. She has 2-3 bowel movements that are loose, orange in color, and foul smelling. She has taken Lomotil once every day for the past 3 days with no significant improvement in her stool frequency. She has had a firm stool in the past week which is better than prior weeks. Her daughter is concerned about her ability to go home and tolerate PO and would also like her stool checked for c diff. " HOSPITAL COURSE: The following morning, patient was feeling well. She tolerated her breakfast and denied any nausea or abdominal pain. Patient's GI panel ret urned back negative for C. difficile. Patient had no fever or leukocytosis. Patient was medically stable and discharged home today. DISCHARGE MEDICATIONS: Please see below. ALLERGIES: Please see below. PHYSICAL EXAMINATION ON DISCHARGE: VITAL SIGNS: Please see below. GENERAL: Comfortable, in no apparent distress. HEENT: EOMI, sclera clear. NECK: Supple. RESPIRATORY: Lungs clear to auscultation bilaterally, no rales, wheeze or rhonchi. CARDIOVASCULAR: Regular rate and rhythm. ABDOMEN: Soft. Normal bowel sounds. NEUROLOGICAL: CN 3-12 grossly intact. PSYCHOLOGICAL: Normal mood and affect LABORATORY DATA: Please see below. IMAGING: Radiologist interpretation CT abdomen pelvis without contrast No acute abdominal or pelvic abnormality. PROGNOSIS: Good ACTIVITY: As tolerated. DIET: As tolerated DISCHARGE PLAN: Home with home health service DISPOSITION: Home Health Service. DISCHARGE INSTRUCTIONS: 1. PCP within 1 week. 2. Daughter concerned of patient's gastritis. Please keep course of sucralfate limited as gastritis should be limited. 3. Consider GI consultation for recurrent diarrhea and N/V. DISCHARGE CONDITION: Stable Total time spent on discharge planning, discharge summary, and medication reconciliation: 55 minutes Vital Signs/I&Os Vital Signs Date Time Temp Pulse Resp B/P (MAP) Pulse Ox O2 Delivery O2 Flow Rate FiO2 09/27/20 09:54 78 114/58 09/27/20 06:00 97.5 18 93 Room Air I&O- Last 24 Hours up to 6 AM 09/27/20 06:00 Intake Total 856 ml Output Total 200 ml Balance 656 ml Laboratory Data Labs 24H Laboratory Tests 2 09/26/20 17:50: Immature Granulocyte % (Auto) 0.4, Neutrophils (%) (Auto) 55.0, Lymphocytes (%) (Auto) 31.8, Monocytes (%) (Auto) 9.5H, Eosinophils (%) (Auto) 2.6, Basophils (%) (Auto) 0.7, Neutrophils # (Auto) 3.9, Lymphocytes # (Auto) 2.3, Monocytes # (Auto) 0.7, Eosinophils # (Auto) 0.2, Basophils # (Auto) 0.1, Nucleated Red Blood Cells % (auto) 0.0, Anion Gap 10, Glomerular Filtration Rate > 60.0, Calcium Level 10.0, Total Bilirubin 0.3, Direct Bilirubin 0.1, Aspartate Amino T ransf (AST/SGOT) 30, Alanine Aminotransferase (ALT/SGPT) 40, Alkaline Phosphatase 78, Total Creatine Kinase 58, Creatine Kinase MB < 1.0, Creatine Kinase MB Relative Index 1.72, Troponin I < 0.02, Total Protein 6.6, Albumin 3.6, Albumin/Globulin Ratio 1.2, Lipase 72L 09/26/20 19:43: Coronavirus (COVID-19)(PCR) NEGATIVE, Influenza Type A (RT-PCR) NEGATIVE, Influenza Type B (RT-PCR) NEGATIVE, Respiratory Syncytial Virus (PCR) NEGATIVE 09/26/20 22:13: Bedside Glucose (Misc Panel) 123H 09/27/20 05:27: Nucleated Red Blood Cells % (auto) 0.0, Anion Gap 6L, Glomerular Filtration Rate > 60.0, Calcium Level 9.1 09/27/20 09:07: Bedside Glucose (Misc Panel) 90 09/27/20 11:33: Bedside Glucose (Misc Panel) 176H CBC/BMP Laboratory Tests 09/26/20 17:50 09/27/20 05:27 FSBS Laboratory Tests Test 09/26/20 22:13 09/27/20 09:07 09/27/20 11:33 Range/Units Bedside Glucose (Misc Panel) 123 90 176 83-110 MG/DL Microbiology Microbiology 09/26/20 Gastrointestinal Tract Panel (PCR) - Final, Complete Discharge Medications Scheduled Bisoprolol Fumarate (Bisoprolol Fumarate) 10 Mg Tablet, 10 MG PO DAILY, (Reported) Diphenoxylate HCl/Atropine (Lomotil 2.5-0.025 mg Tablet) 1 Each Tablet, 1 TAB PO ACHS, (Reported) Gabapentin (Gabapentin) 100 Mg Capsule, 200 MG PO BID, (Reported) Paroxetine HCl (Paroxetine) 10 Mg Tablet, 10 MG PO DAILY, (Reported) Sucralfate (Carafate) 1 Gm/10 Ml Oral.susp, 10 ML PO ACHS 4 times per day on an empty stomach 1 hour before meals and at bedtime Scheduled PRN Diphenhydramine HCl (Benadryl) 25 Mg Capsule, 50 MG PO QHS PRN for SLEEP, (Reported) Hydrocodone/Acetaminophen (Hydrocodone-Acetamin 10-325 mg) 1 Each Tablet, 2 TAB PO BID PRN for PAIN LEVEL 5-10, (Reported) Loperamide HCl (Loperamide) 2 Mg Capsule, 2 MG PO Q6H PRN for AFTER EACH LOOSE STOOL, (Reported) Allergies Coded Allergies: Penicillins (Verified Allergy, Mild, rash, 08/26/18) aspirin (Verified Allergy, Mild, rash, 08/26/18) atorvastatin (Verified Allergy, Unknown, 08/26/18) rivaroxaban (Verified Adverse Reaction, Unknown, GI BLEED, 07/26/20) CEM CACERES DO Sep 27, 2020 17:31
== END 2020-09-27 13:20 | disposition home health service (06) ==
LOC: M ED 15:30 → M ED INP 15:31 → ENRESERV 21:13 → M MS5PR 22:02
PROVIDERS: ADMIT General Practice; ATTEND Internal Medicine
DX: K52.9 Noninfective gastroenteritis and colitis, unspecified (principal); I10 Essential (primary) hypertension; F32.9 Major depressive disorder, single episode, unspecified; G47.00 Insomnia, unspecified; F03.90 Unspecified dementia, unspecified severity, without behavioral disturbance, psychotic disturbance, mood disturbance, and anxiety; G47.33 Obstructive sleep apnea (adult) (pediatric); D50.9 Iron deficiency anemia, unspecified; R73.01 Impaired fasting glucose; E78.5 Hyperlipidemia, unspecified; E55.9 Vitamin D deficiency, unspecified; M81.0 Age-related osteoporosis without current pathological fracture; K21.9 Gastro-esophageal reflux disease without esophagitis; M19.90 Unspecified osteoarthritis, unspecified site; M54.9 Dorsalgia, unspecified; Z86.19 Personal history of other infectious and parasitic diseases; Z87.19 Personal history of other diseases of the digestive system; Z79.899 Other long term (current) drug therapy; Z88.0 Allergy status to penicillin; Z88.6 Allergy status to analgesic agent; Z88.8 Allergy status to other drugs, medicaments and biological substances; Z86.711 Personal history of pulmonary embolism
CPT/HCPCS: 36415; 74176; 80048; 80076; 82550; 82553; 83690; 84484; 85025; 85027; 87505; 87631; 93005; 93041; 96372; 96374; 99285; G0378; J0360; J1650; Q0162

== ENCOUNTER → 2020-10-20 | Outpatient (REF) | payer MEDICARE ==
[~2020-10-20] MED LIST changes: +BACITAB PO; +BENA25CA4 PO; +CYCL-707; +ELIQ2.5T PO; -KLOR10TA76 PO; +LOMO2.5T PO; +LOPE1CAP5 PO; +MELA5TAB21 PO; +MIRT-62 PO; +ONDA4TAB6 PO; +PARO10TA3 PO; +POTA-136 PO; +POTA-149 PO; -POTA10TA16 PO; +PROBCAP14 PO; +ROSU40TA4 PO; +SUCR1SS PO
[2020-10-20 14:18] LABS: CLOSTRIDIUM DIFFICILE PCR NEGATIVE (NEGATIVE)
== END ==
LOC: M SFHCPLAZ 12:59
PROVIDERS: ATTEND Internal Medicine Infectious Disease
DX: A04.71 Enterocolitis due to Clostridium difficile, recurrent (principal)
CPT/HCPCS: 87493; G0463

== ENCOUNTER 2020-11-04 13:16 | Inpatient (IN) | payer MEDICARE ==
[~2020-11-04] VITALS: Ht 154.9 cm; Wt 63.9 kg
[~2020-11-04 13:16] MED LIST changes: -BACITAB PO; -CYCL-707; -ELIQ2.5T PO; +KLOR10TA76 PO; -MELA5TAB21 PO; -MIRT-62 PO; -ONDA4TAB6 PO; -POTA-136 PO; -POTA-149 PO; +POTA10TA16 PO; -PROBCAP14 PO; -ROSU40TA4 PO
[2020-11-04] MEDS ORDERED: PROBCAP14 PO (13:29)
[2020-11-04] MEDS ORDERED: NS 1,000 ML IV ONE (17:35)
[2020-11-04 19:06] LABS: BASO % 0.5 % (0.0-1.0); EOS # 0.2 10^3/uL (0.0-0.5); EOS % 2.4 % (0.0-3.0); HEMATOCRIT 40.8 % (36.0-47.0); HEMOGLOBIN 12.6 g/dl (12.0-15.5); MEAN CORPUSCULAR HEMOGLOBIN 30.9 pg (27.0-33.0); MEAN CORPUSCULAR HGB CONC 30.9 g/dl (32.0-36.5); MONO # 0.5 10^3/uL (0.0-0.8); MONO % 6.7 % (2.0-8.0); NEUTROPHILS # 3.9 10^3/uL (1.5-8.5); NEUTROPHILS % 51.1 % (36.0-66.0); PLATELET COUNT, AUTOMATED 259 10^3/uL (150-450); RED BLOOD COUNT 4.08 10^6/uL (4.00-5.40); WHITE BLOOD COUNT 7.7 10^3/uL (4.0-10.0)
[2020-11-04 19:31] LABS: RSV AMPLIFICATION NEGATIVE (NEGATIVE)
[2020-11-04 21:02] LABS: ALBUMIN 3.4 GM/DL (3.2-5.2); ALT/SGPT 30 U/L (12-78); BILIRUBIN,DIRECT < 0.1 MG/DL (0.0-0.2); BILIRUBIN,TOTAL 0.4 MG/DL (0.2-1.0); BLOOD UREA NITROGEN 17 MG/DL (7-18); CALCIUM LEVEL 9.5 MG/DL (8.8-10.2); CARBON DIOXIDE LEVEL 23 MEQ/L (21-32); CHLORIDE LEVEL 111 MEQ/L (98-107); CK-MB VALUE MASS 1.6 NG/ML (<3.6); CPK CREATINE PHOSPHOKINASE 68 U/L (26-192); CREATININE FOR GFR 0.52 MG/DL (0.55-1.30); GLOMERULAR FILTRATION RATE > 60.0 (>32); GLUCOSE, FASTING 102 MG/DL (70-100); LIPASE 91 U/L (73-393); MB/CK RELATIVE INDEX 2.35 (< OR =4); POTASSIUM SERUM 4.6 MEQ/L (3.5-5.1); SODIUM LEVEL 141 MEQ/L (136-145); TOTAL PROTEIN 6.1 GM/DL (6.4-8.2); TROPONIN I < 0.02 NG/ML (< 0.10)
[2020-11-04] MEDS ORDERED: ONDANSETRON 4MG/2ML VIAL IV ONE (21:25)
[2020-11-04] MEDS ORDERED: ACETAMINOPHEN 325 MG TAB PO ONE (21:40)
[2020-11-04] MEDS ORDERED: ACETAMINOPHEN TAB 650MG DOSE (2X325MG) PO PRN (21:45)
--- NOTE | 2020-11-04 21:49 | HPEPDOC ---
[facility] Medical History & Physical Date of Admission Nov 04, 2020 Date of Service: Nov 04, 2020 Attending Physician: DAQUAN RODRÍGUEZ MD History and Physical TIME OF SERVICE: 11:55 PM CHIEF COMPLAINT: Diarrhea HISTORY OF PRESENT ILLNESS: Ms. 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 During both admissions her GI panel was negative. Despite taking Lomotil, atropine tablets, colvesam along with probiotics she continues to have multiple episodes of diarrhea. Yesterday she had 12 episodes, and today she has had an additional 5 episodes. The patient's daughter is very concerned because the patient has lost about 20 pounds in the last week and has been having nausea. The patient denies having fevers, chills, vomiting, blood in her stools, or abdominal pain. REVIEW OF SYSTEMS: 10-point review of systems negative except as listed in HPI PAST MEDICAL/ SURGICAL HISTORY: History of recurrent C. 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 FAMILY HISTORY: Her father had alcoholic liver disease, her mother had breast cancer along with double mastectomies, her brother had COPD secondary to tobacco use, one of her sisters her sister had PE, another sister had COPD, ALLERGIES: Please see below. HOME MEDICATIONS: Please see below. PHYSICAL EXAMINATION: VITAL SIGNS: Please see below. GENERAL APPEARANCE: Well-nourished, and well-developed, not in apparent distress HEENT: Extraocular movements intact CARDIOVASCULAR: Regular rate and rhythm no murmurs rubs or gallops, no lower extremity edema LUNGS: Lungs are clear to auscultation bilaterally on room air ABDOMEN: The abdomen is distended, soft but not tender with palpation MUSCULOSKELETAL: Normocephalic atraumatic, INTEGUMENT: She is not flushed pale or diaphoretic NEUROLOGICAL: Her speech is not dysarthric PSYCHIATRIC: She is alert and oriented and able to understand and follow simple commands LABORATORY DATA: 11/04/20 20:04 IMAGING: n/a MICROBIOLOGY: Respiratory panel is negative ASSESSMENT: Ms. Trivedi is an 85-year-old with a history of recurrent C. difficile colitis, HTN, HFpEF, MDD, ALYCIA, GERD, JO, CVA, dementia, DJD, osteoporosis, insomnia, resection of hyperplastic colonic polyp & resection of tubular adenomas of the colon who is admitted for evalatuion of persistent diarrhea and weight loss. PLAN: 1 Persistent diarrhea Possibly due to recurrent C. difficile, versus IBS, versus other cause to be determined Plan: Admit to medical floor/hold Lomitil and probiotics pending the results of the GI panel and KUB/because she does not have SIRS criteria or coexisting DIVYA we will hold off additional antibiotics for now/we will ask the daytime team to consult Dr. Taylor to determine whether the patient needs a repeat colonoscopy and or if she is a candidate for any clinical trails for C diff at [facility] 2 Nausea Plan: P.o. Zofran 3 Weight loss Plan: Follow prealbumin/the daytime team may consider placing a dietitian consult to advise the patient on selecting high protein foods 4 Essential hypertension Plan: Bisprolol 5 Chronic HFpEF Euvolemic Plan: Monitor I's and O's and weight 6 MDD/ ALYCIA Plan: Paroxetine DVT px w Lovenox (Magdalena Prediction Score to determine the in-patient risk of VTE & need for anticoagulation is 5. Individuals with a Magdalena Score <4 are low risk of VTE and thromboprophylaxis should be considered on a [id number] basis while individuals with a Magdalena score >4 are high risk for VTE and will likely benefit from thromboprophylaxis unless the patient has major contraindication such as major bleeding or thrombocytopenia). Dispo: home vs SNF after at least 2 midnights stay Her HOSPITAL Score is 12 = which puts her in the intermediate risk group. She has a 12% risk of potentially avoidable readmission within the next 30 days. We will pace PFS consult to assist with discharge planning. Home Medications Scheduled Bisoprolol Fumarate (Bisoprolol Fumarate) 10 Mg Tablet, 10 MG PO DAILY Diphenhydramine HCl (Benadryl) 25 Mg Capsule, 50 MG PO QHS Gabapentin (Gabapentin) 100 Mg Capsule, 200 MG PO BID L.acidoph/L.bulg/B.bif/S.therm (Bacid Caplet) 1 Each Tablet, 1 TAB PO DAILY Paroxetine HCl (Paroxetine) 10 Mg Tablet, 10 MG PO DAILY Scheduled PRN Diphenoxylate HCl/Atropine (Lomotil 2.5-0.025 mg Tablet) 1 Each Tablet, 1 TAB PO BID PRN for DIARRHEA Hydrocodone/Acetaminophen (Hydrocodone-Acetamin 10-325 mg) 1 Each Tablet, 2 TAB PO BID PRN for PAIN LEVEL 6-10 Loperamide HCl (Loperamide) 2 Mg Capsule, 2 MG PO Q6H PRN for AFTER EACH LOOSE STOOL Allergies Coded Allergies: Penicillins (Verified Allergy, Mild, rash, 08/26/18) aspirin (Verified Allergy, Mild, rash, 08/26/18) tizanidine (Verified Allergy, Mild, VERTIGO, 11/04/20) atorvastatin (Verified Allergy, Unknown, 08/26/18) doxycycline (Verified Allergy, Unknown, 11/04/20) rivaroxaban (Verified Adverse Reaction, Intermediate, GI BLEED, 11/04/20) cyclobenzaprine (Verified Adverse Reaction, Mild, MYALGIA, 11/04/20) irbesartan (Verified Adverse Reaction, Mild, LEG ACHES, 11/04/20) zolpidem (Verified Adverse Reaction, Mild, HEADACHES, 11/04/20) A-FIB/CHADSVASC A-FIB History Current/History of A-Fib/PAF?: No Current PO Anticoag Therapy: No DAQUAN RODRÍGUEZ MD Nov 04, 2020 21:49
--- NOTE | 2020-11-04 22:53 | REPVR ---
PROCEDURE INFORMATION: Exam: XR Abdomen Exam date and time: 11/04/20 (9:50pm) Age: 85 years old Clinical indication: Generalized abdominal pain. Recurrent C. difficile colitis. Possible toxic megacolon. TECHNIQUE: Imaging protocol: XR of the abdomen Views: Frontal supine view of the abdomen. 1 View. COMPARISON: CT ABDOMEN PELVIS of 09/26/20 FINDINGS: The diaphragms are not included on the film. The bowel gas pattern is nonspecific and non-obstructed. Degenerative thoracolumbar spine changes. Loss of disc space at multiple levels. S/P posterior spinal fixation from L4-S1. S/P cholecystectomy. Multiple calcified pelvic phleboliths. Hypertrophic bony changes at the symphysis. IMPRESSION: No acute pathology. Nonspecific and non-obstructed bowel gas pattern. Electronically signed by: Faina Fischer On 11/04/2020 22:53:42 PM
[2020-11-04] MEDS ORDERED: BACITAB PO (22:58)
[2020-11-04] MEDS ORDERED: HOME MED LIST COMPLETE! XX SCH (23:00)
[2020-11-05 01:09] VITALS: BP 150/79
[2020-11-05] MEDS ORDERED: ONDANSETRON 4 MG ORAL DISINTEGRATING TAB PO PRN (01:20)
[2020-11-05] MEDS: ANEXSIA, NORCO 7.5MG/325MG TABLET(HYDROCODONE/APAP) PO PRN ×2 (01:57→15:09)
[2020-11-05] MEDS: GABAPENTIN 100 MG CAP PO SCH ×3 (01:57→20:49)
[2020-11-05 06:00] VITALS: BP 127/69
[2020-11-05 06:31] LABS: MEAN CORPUSCULAR HEMOGLOBIN 30.2 pg (27.0-33.0); MEAN CORPUSCULAR HGB CONC 30.8 g/dl (32.0-36.5); MEAN CORPUSCULAR VOLUME 98.2 fl (80.0-96.0); PLATELET COUNT, AUTOMATED 239 10^3/uL (150-450); RED BLOOD COUNT 3.97 10^6/uL (4.00-5.40)
[2020-11-05 06:56] LABS: BLOOD UREA NITROGEN 14 MG/DL (7-18); CARBON DIOXIDE LEVEL 22 MEQ/L (21-32); CHLORIDE LEVEL 112 MEQ/L (98-107); CREATININE FOR GFR 0.54 MG/DL (0.55-1.30); GLOMERULAR FILTRATION RATE > 60.0 (>32); GLUCOSE, FASTING 110 MG/DL (70-100); POTASSIUM SERUM 4.3 MEQ/L (3.5-5.1); PREALBUMIN 29.2 MG/DL (20.0-40.0); SODIUM LEVEL 140 MEQ/L (136-145)
[2020-11-05] MEDS: ENOXAPARIN 40MG/0.4ML SYRINGE (J1650 PER 10MG) SC SCH (09:16)
[2020-11-05] MEDS: bisoproloL fumarate 10 MG TAB PO SCH (09:17)
[2020-11-05] MEDS: PARoxetine 10MG TABLET PO SCH (09:17)
--- NOTE | 2020-11-05 11:31 | IPNPDOC ---
Text Note Date of Service The patient was seen on 11/05/20. NOTE Subjective: -No complaints this AM. No abd pain, no diarrhea overnight Objective: VITAL SIGNS: Please see below. GENERAL APPEARANCE: Well-nourished, and well-developed, not in apparent distress HEENT: NCAT, EOMI, MMM CARDIOVASCULAR: Regular rate and rhythm no murmurs rubs or gallops, no lower extremity edema LUNGS: Lungs are clear to auscultation bilaterally on room air ABDOMEN: The abdomen remains mildly distended, soft but not tender with palpation NEUROLOGICAL: Clear speech, CN 3-12 intact, grossly nonfocal PSYCHIATRIC: AOx3 LABORATORY DATA: reviewed WBC 7 hgb 12 platelets 239 na 140 K 4.3 Cr 0.54 Imaging: KUB: No acute pathology. Nonspecific and non-obstructed bowel gas pattern. MICROBIOLOGY: Respiratory panel is negative ASSESSMENT: 85-year-old with a history of recurrent C. difficile colitis s/p IV Bezlotoxumab and fecal transplant in 08/2020, HTN, HFpEF, MDD, ALYCIA, GERD, JO, CVA, dementia, DJD, osteoporosis, insomnia, resection of hyperplastic colonic polyp & resection of tubular adenomas of the colon who is admitted for evaluation of persistent diarrhea and weight loss. PLAN: Persistent diarrhea -Possibly due to recurrent C. difficile, versus IBS, versus other cause to be determined. f/u GI panel, not yet sent because she has not yet had any BMs since admission. -Continue to hold Lomitil and probiotics pending the results of the GI panel -KUB was unconcerning as noted above -consult Dr. Taylor to determine whether the patient needs a repeat colonoscopy and/or if she is a candidate for any clinical trails for C diff at [facility] if diarrhea persists and GI panel is positive 2 Nausea -PRN Zofran 3 Weight loss -pending GI eval 4 Essential hypertension -Bisprolol 5 Chronic HFpEF: euvolemic -Monitor I's and O's and weight 6 MDD/ ALYCIA -Paroxetine DVT ppx w/ Lovenox Dispo: home vs SNF after at least 2 midnights stay VS,Fishbone, I+O VS, Fishbone, I+O Laboratory Tests 11/04/20 18:56 11/04/20 20:04 11/05/20 06:01 Vital Signs Date Time Temp Pulse Resp B/P (MAP) Pulse Ox O2 Delivery O2 Flow Rate FiO2 11/05/20 09:17 87 124/69 11/05/20 06:00 98.4 14 97 Room Air I&O- Last 24 Hours up to 6 AM 11/05/20 06:00 Intake Total 1000 ml Output Total 150 ml Balance 850 ml MARKY COATES MD Nov 05, 2020 09:40
[2020-11-05 14:00] VITALS: BP 137/73
[2020-11-05] MEDS: FIORICET TAB PO PRN (17:16)
[2020-11-05] MEDS: RAMELTEON 8 MG TAB (ROZEREM) PO PRN (21:35)
[2020-11-05 22:00] VITALS: BP 139/73
[2020-11-06 06:00] VITALS: BP 109/51
[2020-11-06] MEDS: bisoproloL fumarate 10 MG TAB PO SCH (10:16)
[2020-11-06] MEDS: ENOXAPARIN 40MG/0.4ML SYRINGE (J1650 PER 10MG) SC SCH (10:16)
[2020-11-06] MEDS: GABAPENTIN 100 MG CAP PO SCH ×2 (10:17→20:13)
[2020-11-06] MEDS: PARoxetine 10MG TABLET PO SCH (10:17)
[2020-11-06] MEDS: LACTOBACILLUS ACIDOPHILUS CAP (BACID) PO SCH ×3 (10:21→17:46)
[2020-11-06] MEDS: CIPROFLOXACIN 500MG TABLET PO SCH ×2 (10:21→17:46)
[2020-11-06] MEDS: ANEXSIA, NORCO 7.5MG/325MG TABLET(HYDROCODONE/APAP) PO PRN (10:52)
--- NOTE | 2020-11-06 12:33 | IPNPDOC ---
Text Note Date of Service The patient was seen on 11/06/20. NOTE Subjective: -No abd pain, N/V -2 watery BMs since admission Objective: VITAL SIGNS: Please see below. GENERAL APPEARANCE: Well-nourished, and well-developed, not in apparent distress HEENT: NCAT, EOMI, MMM CARDIOVASCULAR: Regular rate and rhythm no murmurs rubs or gallops, no lower extremity edema LUNGS: Lungs are clear to auscultation bilaterally on room air ABDOMEN: The abdomen remains mildly distended, soft but not tender with palpation NEUROLOGICAL: Clear speech, CN 3-12 intact, grossly nonfocal PSYCHIATRIC: AOx3 LABORATORY DATA: reviewed Imaging: KUB: No acute pathology. Nonspecific and non-obstructed bowel gas pattern. 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 PLAN: Persistent diarrhea 2/2 Enteropathic E.coli -Negative for C. difficile -GI panel, was positive for EPEC -Start cipro, day 1 for a 3d course -Will restart home probiotic WM -Continue to hold Lomitil -KUB was unconcerning as noted above -Spoke with Dr. Taylor, for now will treat the EPEC and diarrhea appears minimal perhaps from self resolving enteritis. Will hold off on official consult at this time. -Electrolytes are wnl 2 Nausea -PRN Zofran 3 Weight loss -Has poor PO at baseline, will consult nutrition. Exacerbated by long diarrhea history. -will start on low dose mirtazapine QHS 4 Essential hypertension -Bisprolol 5 Chronic HFpEF: euvolemic -Monitor I's and O's and weight 6 MDD/ ALYCIA -Paroxetine DVT ppx w/ Lovenox Dispo: home vs SNF after at least 2 midnights stay. PT/OT VS,Fishbone, I+O VS, Fishbone, I+O Vital Signs Date Time Temp Pulse Resp B/P (MAP) Pulse Ox O2 Delivery O2 Flow Rate FiO2 11/06/20 06:00 98.2 65 16 109/51 (70) 93 Room Air I&O- Last 24 Hours up to 6 AM 11/06/20 06:00 Intake Total 420 ml Output Total 530 ml Balance -110 ml MARKY COATES MD Nov 06, 2020 08:36
[2020-11-06 14:00] VITALS: BP 125/68
[2020-11-06] MEDS: MIRTAZAPINE 15 MG TAB PO SCH (20:13)
[2020-11-06 21:11] VITALS: BP 113/87
[2020-11-06] MEDS: FIORICET TAB PO PRN (22:07)
[2020-11-07] MEDS: CIPROFLOXACIN 500MG TABLET PO SCH (05:32)
[2020-11-07 06:26] VITALS: BP 120/63
[2020-11-07] MEDS: LACTOBACILLUS ACIDOPHILUS CAP (BACID) PO SCH ×3 (08:00→18:21)
[2020-11-07] MEDS: GABAPENTIN 100 MG CAP PO SCH ×2 (10:33→20:40)
[2020-11-07] MEDS: PARoxetine 10MG TABLET PO SCH (10:33)
[2020-11-07] MEDS: bisoproloL fumarate 10 MG TAB PO SCH (10:34)
[2020-11-07] MEDS: ENOXAPARIN 40MG/0.4ML SYRINGE (J1650 PER 10MG) SC SCH (10:34)
[2020-11-07] MEDS: ANEXSIA, NORCO 7.5MG/325MG TABLET(HYDROCODONE/APAP) PO PRN (11:00)
--- NOTE | 2020-11-07 11:08 | IPNPDOC ---
Text Note Date of Service The patient was seen on 11/07/20. NOTE Subjective: -No abd pain, N/V -3 BMs in the last 24h, now with diarrhea since starting cipro, so will stop it. Objective: VITAL SIGNS: Please see below. GENERAL APPEARANCE: Well-nourished, and well-developed, not in apparent distress HEENT: NCAT, EOMI, MMM CARDIOVASCULAR: Regular rate and rhythm no murmurs rubs or gallops, no lower extremity edema LUNGS: Lungs are clear to auscultation bilaterally on room air ABDOMEN: The abdomen remains mildly distended, soft but not tender with palpation NEUROLOGICAL: Clear speech, CN 3-12 intact, grossly nonfocal PSYCHIATRIC: AOx3 LABORATORY DATA: reviewed Imaging: KUB: No acute pathology. Nonspecific and non-obstructed bowel gas pattern. 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 PLAN: Persistent diarrhea 2/2 Enteropathic E.coli -Negative for C. difficile -GI panel, was positive for EPEC -Cipro, day 2 of a 3d course. DC as diarrhea is actually beginning since admission -Home probiotic WM -Continue to hold Lomitil -KUB was unconcerning as noted above -Spoke with Dr. Taylor, and plan had been to treat the EPEC since she had minimal diarrhea perhaps from self resolving enteritis, but cipro coincided withe diarrhea, so will stop it. Will hold off on official consult at this time. -Electrolytes are wnl 2 Nausea -PRN Zofran 3 Weight loss -Has poor PO at baseline, will consult nutrition. Exacerbated by long diarrhea history. -started on 15mg mirtazapine QHS 4 Essential hypertension -Bisprolol 5 Chronic HFpEF: euvolemic -Monitor I's and O's and weight 6 MDD/ ALYCIA -Paroxetine DVT ppx w/ Lovenox Dispo: home vs SNF after at least 2 midnights stay. PT/OT VS,Fishbone, I+O VS, Fishbone, I+O Vital Signs Date Time Temp Pulse Resp B/P (MAP) Pulse Ox O2 Delivery O2 Flow Rate FiO2 11/07/20 06:26 98.1 69 16 120/63 (82) 94 Room Air I&O- Last 24 Hours up to 6 AM 11/07/20 06:00 Intake Total 1160 ml Output Total 200 ml Balance 960 ml MARKY COATES MD Nov 07, 2020 08:43
[2020-11-07 14:00] VITALS: BP 136/72
[2020-11-07 20:00] VITALS: BP 136/72
[2020-11-07] MEDS: RAMELTEON 8 MG TAB (ROZEREM) PO PRN (20:40)
[2020-11-07] MEDS: MIRTAZAPINE 15 MG TAB PO SCH (20:40)
[2020-11-07] MEDS: FIORICET TAB PO PRN (20:49)
[2020-11-07 22:00] VITALS: BP 149/79
[2020-11-08 06:00] VITALS: BP 134/53
[2020-11-08 09:43] LABS: HEMATOCRIT 39.4 % (36.0-47.0); HEMOGLOBIN 12.3 g/dl (12.0-15.5); MEAN CORPUSCULAR HEMOGLOBIN 30.6 pg (27.0-33.0); MEAN CORPUSCULAR HGB CONC 31.2 g/dl (32.0-36.5); PLATELET COUNT, AUTOMATED 250 10^3/uL (150-450); RED BLOOD COUNT 4.02 10^6/uL (4.00-5.40); WHITE BLOOD COUNT 8.1 10^3/uL (4.0-10.0)
[2020-11-08 10:08] LABS: BLOOD UREA NITROGEN 9 MG/DL (7-18); CALCIUM LEVEL 9.1 MG/DL (8.8-10.2); CARBON DIOXIDE LEVEL 24 MEQ/L (21-32); CHLORIDE LEVEL 115 MEQ/L (98-107); CREATININE FOR GFR 0.54 MG/DL (0.55-1.30); GLOMERULAR FILTRATION RATE > 60.0 (>32); GLUCOSE, FASTING 98 MG/DL (70-100); POTASSIUM SERUM 4.2 MEQ/L (3.5-5.1); SODIUM LEVEL 145 MEQ/L (136-145)
[2020-11-08] MEDS: LACTOBACILLUS ACIDOPHILUS CAP (BACID) PO SCH ×3 (10:08→18:56)
[2020-11-08] MEDS: GABAPENTIN 100 MG CAP PO SCH ×2 (10:09→20:57)
[2020-11-08] MEDS: PARoxetine 10MG TABLET PO SCH (10:09)
[2020-11-08] MEDS: bisoproloL fumarate 10 MG TAB PO SCH (10:10)
[2020-11-08] MEDS: ENOXAPARIN 40MG/0.4ML SYRINGE (J1650 PER 10MG) SC SCH (10:14)
--- NOTE | 2020-11-08 12:49 | IPNPDOC ---
Text Note Date of Service The patient was seen on 11/08/20. NOTE Subjective: -No abd pain, N/V -3 BMs in the last 24h -Tolerating high fiber diet, no BMs this AM Interim events: -Spoke with daughter who is suspecting that her mother may be gluten sensitive due to her symptoms being very similar to some people she knows from work who have celiac disease. Requesting celiac screen test and trial of regular diet followed by trial of gluten sensitive diet if diarrhea returns with the regular diet. We discussed at length that her mother's copious diarrhea is only reported in her own home and not when in the hospital and not when at her other daughter's house and I suspect an environmental exposure vs. dietary exposure when she is home unfortunately that I cannot identify at this time. She has only had at most 3BMs per 24h period which is drastically different from the upwards of 20s-40 episodes that are reported at home with massive weight loss and no electrolyte shifts, dehydration or convincing infectious workup except enteropathic E.coli. Objective: VITAL SIGNS: Please see below. GENERAL APPEARANCE: Well-nourished, and well-developed, not in apparent distress HEENT: NCAT, EOMI, MMM CARDIOVASCULAR: Regular rate and rhythm no murmurs rubs or gallops, no lower extremity edema LUNGS: Lungs are clear to auscultation bilaterally on room air ABDOMEN: The abdomen remains mildly distended, soft but not tender with palpation NEUROLOGICAL: Clear speech, CN 3-12 intact, grossly nonfocal PSYCHIATRIC: AOx3 LABORATORY DATA: reviewed Imaging: KUB: No acute pathology. Nonspecific and non-obstructed bowel gas pattern. 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 PLAN: Persistent diarrhea 2/2 Enteropathic E.coli -Negative for C. difficile -GI panel, was positive for EPEC -DC'd cipro on day 2 after she started having some mild diarrhea that coincided with beginning the cipro -Home probiotic WM -Continue to hold Lomitil -KUB was unconcerning as noted above -Spoke with Dr. Taylor, and plan had been to treat the EPEC since she had minimal diarrhea perhaps from self resolving enteritis, but cipro coincided withe diarrhea, so will stop it. Will hold off on official consult at this time. -Electrolytes are wnl -will give regular diet and monitor for diarrhea -sent tissue transglutaminase IgA antibodies for celiac screen. Daughter is suspecting gluten sensitivity 2 Nausea -PRN Zofran 3 Weight loss -Has poor PO at baseline, will consult nutrition. Exacerbated by long diarrhea history. -continue 15mg mirtazapine QHS 4 Essential hypertension -Bisoprolol 5 Chronic HFpEF: euvolemic -Monitor I's and O's and weight 6 MDD/ ALYCIA -Paroxetine DVT ppx w/ Lovenox Dispo: home vs SNF after at least 2 midnights stay. PT/OT VS,Fishbone, I+O VS, Fishbone, I+O Vital Signs Date Time Temp Pulse Resp B/P (MAP) Pulse Ox O2 Delivery O2 Flow Rate FiO2 11/08/20 06:00 98.0 79 21 134/53 (80) 98 Room Air I&O- Last 24 Hours up to 6 AM 11/08/20 06:00 Intake Total 240 ml Output Total 0 ml Balance 240 ml MARKY COATES MD Nov 08, 2020 08:40
[2020-11-08] MEDS: ANEXSIA, NORCO 7.5MG/325MG TABLET(HYDROCODONE/APAP) PO PRN (13:53)
[2020-11-08] MEDS: FIORICET TAB PO PRN (13:54)
[2020-11-08 14:00] VITALS: BP 136/63
[2020-11-08] MEDS: RAMELTEON 8 MG TAB (ROZEREM) PO PRN (20:57)
[2020-11-08] MEDS: MIRTAZAPINE 15 MG TAB PO SCH (20:58)
[2020-11-08 22:00] VITALS: BP 128/74
[2020-11-09 06:00] VITALS: BP 108/59
[2020-11-09 06:34] LABS: HEMATOCRIT 37.6 % (36.0-47.0); HEMOGLOBIN 11.8 g/dl (12.0-15.5); MEAN CORPUSCULAR HEMOGLOBIN 30.3 pg (27.0-33.0); MEAN CORPUSCULAR HGB CONC 31.4 g/dl (32.0-36.5); MEAN CORPUSCULAR VOLUME 96.7 fl (80.0-96.0); PLATELET COUNT, AUTOMATED 229 10^3/uL (150-450); RED BLOOD COUNT 3.89 10^6/uL (4.00-5.40); WHITE BLOOD COUNT 9.2 10^3/uL (4.0-10.0)
[2020-11-09 07:03] LABS: BLOOD UREA NITROGEN 14 MG/DL (7-18); CALCIUM LEVEL 8.8 MG/DL (8.8-10.2); CARBON DIOXIDE LEVEL 23 MEQ/L (21-32); CHLORIDE LEVEL 113 MEQ/L (98-107); CREATININE FOR GFR 0.67 MG/DL (0.55-1.30); GLOMERULAR FILTRATION RATE > 60.0 (>32); GLUCOSE, FASTING 101 MG/DL (70-100); POTASSIUM SERUM 3.4 MEQ/L (3.5-5.1); SODIUM LEVEL 143 MEQ/L (136-145)
[2020-11-09] MEDS: GABAPENTIN 100 MG CAP PO SCH ×2 (09:18→20:47)
[2020-11-09] MEDS: bisoproloL fumarate 10 MG TAB PO SCH (09:21)
[2020-11-09] MEDS: LACTOBACILLUS ACIDOPHILUS CAP (BACID) PO SCH ×3 (09:21→17:34)
[2020-11-09] MEDS: ENOXAPARIN 40MG/0.4ML SYRINGE (J1650 PER 10MG) SC SCH (09:21)
[2020-11-09] MEDS: PARoxetine 10MG TABLET PO SCH (09:21)
--- NOTE | 2020-11-09 10:50 | IPNPDOC ---
Text Note Date of Service The patient was seen on 11/09/20. NOTE Subjective: -No abd pain, N/V -Tolerating high fiber diet, 2BMs in the last 24h Objective: VITAL SIGNS: Please see below. GENERAL APPEARANCE: Well-nourished, and well-developed, not in apparent distress HEENT: NCAT, EOMI, MMM CARDIOVASCULAR: Regular rate and rhythm no murmurs rubs or gallops, no lower extremity edema LUNGS: Lungs are clear to auscultation bilaterally on room air ABDOMEN: The abdomen remains mildly distended, soft but not tender with palpation NEUROLOGICAL: Clear speech, CN 3-12 intact, grossly nonfocal PSYCHIATRIC: AOx3 LABORATORY DATA: reviewed Imaging: KUB: No acute pathology. Nonspecific and non-obstructed bowel gas pattern. 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 PLAN: Persistent diarrhea 2/2 Enteropathic E.coli -Negative for C. difficile -GI panel, was positive for EPEC -DC'd cipro on day 2 after she started having some mild diarrhea that coincided with beginning the cipro -Home probiotic WM -Continue to hold Lomitil -KUB was unconcerning as noted above -Spoke with Dr. Taylor, and plan had been to treat the EPEC since she had minimal diarrhea perhaps from self resolving enteritis, but cipro coincided withe diarrhea, so will stop it. Will hold off on official consult at this time. -Electrolytes are wnl -Tolerating high fiber diet, 2BMs in the last 24h -sent tissue transglutaminase IgA antibodies for celiac screen. Daughter is suspecting gluten sensitivity based on work friends who have similar symptoms as her mother 2 Nausea -PRN Zofran 3 Weight loss -Has poor PO at baseline, will consult nutrition. Exacerbated by long diarrhea history. -continue 15mg mirtazapine QHS 4 Essential hypertension -Bisoprolol 5 Chronic HFpEF: euvolemic -Monitor I's and O's and weight 6 MDD/ ALYCIA -Paroxetine DVT ppx w/ Lovenox Dispo: home vs SNF. PT/OT VS,Fishbone, I+O VS, Fishbone, I+O Laboratory Tests 11/08/20 09:32 11/09/20 06:10 Vital Signs Date Time Temp Pulse Resp B/P (MAP) Pulse Ox O2 Delivery O2 Flow Rate FiO2 11/09/20 06:00 98.1 83 17 108/59 (75) 94 Room Air I&O- Last 24 Hours up to 6 AM 11/09/20 06:00 Intake Total 580 ml Output Total 100 ml Balance 480 ml MARKY COATES MD Nov 09, 2020 07:36
[2020-11-09 14:00] VITALS: BP 107/62
[2020-11-09] MEDS: ANEXSIA, NORCO 7.5MG/325MG TABLET(HYDROCODONE/APAP) PO PRN (17:34)
[2020-11-09] MEDS ORDERED: LIDOCAINE 5% (LIDODERM) PATCH TD PRN (20:10)
[2020-11-09] MEDS: MIRTAZAPINE 15 MG TAB PO SCH (20:47)
[2020-11-09] MEDS ORDERED: **NOTE PATIENT COMMENT** MISC XX PRN (21:00)
[2020-11-09 22:00] VITALS: BP 113/61
[2020-11-10 06:00] VITALS: BP 156/67
[2020-11-10 06:37] LABS: HEMATOCRIT 39.6 % (36.0-47.0); HEMOGLOBIN 12.2 g/dl (12.0-15.5); MEAN CORPUSCULAR HEMOGLOBIN 30.5 pg (27.0-33.0); MEAN CORPUSCULAR HGB CONC 30.8 g/dl (32.0-36.5); PLATELET COUNT, AUTOMATED 247 10^3/uL (150-450); WHITE BLOOD COUNT 8.3 10^3/uL (4.0-10.0)
[2020-11-10 06:45] LABS: BLOOD UREA NITROGEN 13 MG/DL (7-18); CARBON DIOXIDE LEVEL 19 MEQ/L (21-32); CHLORIDE LEVEL 117 MEQ/L (98-107); CREATININE FOR GFR 0.54 MG/DL (0.55-1.30); GLOMERULAR FILTRATION RATE > 60.0 (>32); GLUCOSE, FASTING 90 MG/DL (70-100); SODIUM LEVEL 144 MEQ/L (136-145)
[2020-11-10 08:27] VITALS: BP 156/67
[2020-11-10] MEDS: bisoproloL fumarate 10 MG TAB PO SCH (08:27)
[2020-11-10] MEDS: LACTOBACILLUS ACIDOPHILUS CAP (BACID) PO SCH ×2 (08:27→11:54)
[2020-11-10] MEDS: GABAPENTIN 100 MG CAP PO SCH (08:27)
[2020-11-10] MEDS: PARoxetine 10MG TABLET PO SCH (08:27)
[2020-11-10] MEDS: ENOXAPARIN 40MG/0.4ML SYRINGE (J1650 PER 10MG) SC SCH (08:28)
--- NOTE | 2020-11-10 12:14 | IPNPDOC ---
Text Note Date of Service The patient was seen on 11/10/20. NOTE Subjective: -No abd pain, N/V -1 BM the entire last 24h -Tolerating a regular diet without complaints Objective: VITAL SIGNS: Please see below. GENERAL APPEARANCE: Well-nourished, and well-developed, not in apparent distress HEENT: NCAT, EOMI, MMM CARDIOVASCULAR: Regular rate and rhythm no murmurs rubs or gallops, no lower extremity edema LUNGS: Lungs are clear to auscultation bilaterally on room air ABDOMEN: The abdomen remains mildly distended, soft but not tender with palpation NEUROLOGICAL: Clear speech, CN 3-12 intact, grossly nonfocal PSYCHIATRIC: AOx3 LABORATORY DATA: reviewed Imaging: KUB: No acute pathology. Nonspecific and non-obstructed bowel gas pattern. 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 PLAN: Persistent diarrhea 2/2 Enteropathic E.coli -Negative for C. difficile -GI panel, was positive for EPEC -DC'd cipro on day 2 after she started having some mild diarrhea that coincided with beginning the cipro -Home probiotic WM -Continue to hold Lomitil -KUB was unconcerning as noted above -Spoke with Dr. Taylor, and plan had been to treat the EPEC since she had minimal diarrhea perhaps from self resolving enteritis, but cipro coincided withe diarrhea, so will stop it. Will hold off on official consult at this time. -Electrolytes are wnl -Tolerating high fiber diet, 2BMs in the last 24h -sent tissue transglutaminase IgA antibodies for celiac screen. Daughter is suspecting gluten sensitivity based on work friends who have similar symptoms as her mother. For now Ms. Scherer is doing very well on a regular diet without evidence of gluten sensitivity. -I am not sure why she develops reportedly copious diarrhea only within her home that remits as soon as she is admitted and also reportedly is not present when she is living at her daughter's house. I suspect there may be an environmental exposure within her home as I am unable to corroborate this illness with observed data. Will discuss discharge planning with PFS at this time. 2 Nausea -PRN Zofran 3 Reported weight loss -Has poor PO at baseline, exacerbated by long diarrhea history. -continue 15mg mirtazapine QHS 4 Essential hypertension -Bisoprolol 5 Chronic HFpEF: euvolemic -Monitor I's and O's and weight 6 MDD/ ALYCIA -Paroxetine DVT ppx w/ Lovenox Dispo: home vs SNF. PT/OT VS,Fishbone, I+O VS, Fishbone, I+O Laboratory Tests 11/10/20 06:03 Vital Signs Date Time Temp Pulse Resp B/P (MAP) Pulse Ox O2 Delivery O2 Flow Rate FiO2 11/10/20 06:00 98.2 76 16 156/67 (96) 96 Room Air I&O- Last 24 Hours up to 6 AM 11/10/20 06:00 Intake Total 627 ml Output Total 300 ml Balance 327 ml MARKY COATES MD Nov 10, 2020 08:28
[2020-11-10] MEDS ORDERED: MIRT-62 PO (12:24)
[2020-11-10] MEDS ORDERED: ONDA4TAB6 PO (12:24)
[2020-11-10] MEDS ORDERED: MELA5TAB21 PO (12:24)
[2020-11-10] MEDS ORDERED: BACITAB PO (12:26)
--- NOTE | 2020-11-10 12:45 | DS.PDOC ---
Discharge Summary General Date of Admission Nov 04, 2020 at 21:44 Date of Discharge 11/10/2020 Attending Physician: MARKY COATES MD Discharge Summary PROCEDURES PERFORMED DURING STAY: None ADMITTING DIAGNOSES: Copious diarrhea DISCHARGE DIAGNOSES: Possible transient gastroenteritis presumed 2/2 enteropathic E.coli History of recurrent C. difficile colitis essential hypertension chronic HFpEF MDD ALYCIA GERD iron deficiency anemia history of right thalamic CVA Chart history of dementia cervical and lumbar DJD insomnia History of LATANYA but is not on CPAP COMPLICATIONS/CHIEF COMPLAINT: Diarrhea. HISTORY OF PRESENT ILLNESS: 85-year-old W with a history of recurrent C. difficile after IV Bezlotoxumab and a stool transplant in 08/2020, and thereafter was admitted to the hospital 2 more times with complaints of diarrhea during which both admissions her GI panel was negative, most recently on Lomotil PRN, loperamide PRN along with probiotics QD and returned to the ED reporting copious episodes of nonbloddy watery diarrhea without tres abdominal pain. The day prior to admission, she reportedly had 12 episodes, and on the day of admission she has had an additional 5 episodes. The patient's daughter is very concerned because the patient has lost about 20 pounds in the preceding week and had been having nausea. The patient denied having fevers, chills, vomiting, blood in her stools, or abdominal pain. HOSPITAL COURSE: On presentation, she was hemodynamically stable, with electrolytes wnl and appeared euvolemic on examination without leukocytosis, fever, or copious diarrhea recorded. She had a GI panel done that was negative for C.diff and instead noted enteropathic E.coli. Without any further diarrhea or evidence of overwhelming bacterial infection, I did give her 2d of cipro that actually brought on diarrhea and I stopped it. I placed her on probiotics with meals, held the loperamide and Lomotil without any episodes of copious diarrhea noted inpatient. She had at most 2 to 3 episodes of watery stool per day and her diet was slowly escalated from clears back to a regular diet, which she tolerated very well with 1 BM per day. I spoke with one of her daughter who was suspecting that her mother may be gluten sensitive due to her symptoms being very similar to some people she knows from work who have gluten sensitivity vs. celiac disease. She requested celiac screen test and trial of regular diet followed by trial of gluten sensitive diet if diarrhea returns with the regular diet. We discussed at length that her mother's copious diarrhea is only reported in her own home and not when in the hospital and not when at her other daughter's house and I suspect an environmental exposure vs. dietary exposure when she is home unfortunately that I cannot identify at this time. The TTG IgA serology testing was sent out and is still pending at this time. On the day of discharge, I spoke with her daughter who provides the most physical support and meals to mom and recommended that as she goes home it would be most useful to keep a food diary to investigate potential triggers for the diarrhea. She will follow with PCP within the next 7d. Of note, i did start her on low dose mirtazapine for appetite stimulation, low mood and poor sleep at 15mg QHS. DISCHARGE MEDICATIONS: Please see below. ALLERGIES: Please see below. PHYSICAL EXAMINATION ON DISCHARGE: VITAL SIGNS: Please see below. GENERAL APPEARANCE: Well-nourished, and well-developed, not in apparent distress HEENT: NCAT, EOMI, MMM CARDIOVASCULAR: Regular rate and rhythm no murmurs rubs or gallops, no lower extremity edema LUNGS: Lungs are clear to auscultation bilaterally on room air ABDOMEN: The abdomen remains mildly distended, soft but not tender with palpation NEUROLOGICAL: Clear speech, CN 3-12 intact, grossly nonfocal PSYCHIATRIC: AOx3 LABORATORY DATA: Please see below. IMAGING: KUB: No acute pathology. Nonspecific and non-obstructed bowel gas pattern. PROGNOSIS: Good ACTIVITY: As tolerated DIET: Regular DISCHARGE PLAN: Home with close PCP follow up DISPOSITION: Home with services DISCHARGE INSTRUCTIONS: Home with close PCP follow up ITEMS TO FOLLOWUP ON ON OUTPATIENT: Diarrhea with food diary DISCHARGE CONDITION: Stable TIME SPENT ON DISCHARGE: 34 minutes. Vital Signs/I&Os Vital Signs Date Time Temp Pulse Resp B/P (MAP) Pulse Ox O2 Delivery O2 Flow Rate FiO2 11/10/20 08:27 76 156/67 11/10/20 06:00 98.2 16 96 Room Air I&O- Last 24 Hours up to 6 AM 11/10/20 06:00 Intake Total 627 ml Output Total 300 ml Balance 327 ml Laboratory Data Labs 24H Laboratory Tests 2 11/10/20 06:03: Nucleated Red Blood Cells % (auto) 0.0, Anion Gap 8, Glomerular Filtration Rate > 60.0, Calcium Level 9.0 CBC/BMP Laboratory Tests 11/10/20 06:03 Microbiology Microbiology 11/05/20 Gastrointestinal Tract Panel (PCR) - Final, Complete Enteropathogenic E.coli Discharge Medications Scheduled Bisoprolol Fumarate (Bisoprolol Fumarate) 10 Mg Tablet, 10 MG PO DAILY, (Reported) Diphenhydramine HCl (Benadryl) 25 Mg Capsule, 50 MG PO QHS, (Reported) Gabapentin (Gabapentin) 100 Mg Capsule, 200 MG PO BID, (Reported) L.acidoph/L.bulg/B.bif/S.therm (Bacid Caplet) 1 Each Tablet, 1 TAB PO WM Mirtazapine (Remeron) 15 Mg Tablet, 15 MG PO QHS Paroxetine HCl (Paroxetine) 10 Mg Tablet, 10 MG PO DAILY, (Reported) Scheduled PRN Diphenoxylate HCl/Atropine (Lomotil 2.5-0.025 mg Tablet) 1 Each Tablet, 1 TAB PO BID PRN for DIARRHEA, (Reported) Hydrocodone/Acetaminophen (Hydrocodone-Acetamin 10-325 mg) 1 Each Tablet, 2 TAB PO BID PRN for PAIN LEVEL 6-10, (Reported) Loperamide HCl (Loperamide) 2 Mg Capsule, 2 MG PO Q6H PRN for AFTER EACH LOOSE STOOL, (Reported) Melatonin (Melatonin) 5 Mg Tab.ir.er, 1 TAB PO QPMP PRN for insomnia Ondansetron (Ondansetron Odt) 4 Mg Tab.rapdis, 2 MG PO Q8HP PRN for NAUSEA OR VOMITING Allergies Coded Allergies: Penicillins (Verified Allergy, Mild, rash, 08/26/18) aspirin (Verified Allergy, Mild, rash, 08/26/18) tizanidine (Verified Allergy, Mild, VERTIGO, 11/04/20) atorvastatin (Verified Allergy, Unknown, 08/26/18) doxycycline (Verified Allergy, Unknown, 11/04/20) rivaroxaban (Verified Adverse Reaction, Intermediate, GI BLEED, 11/04/20) cyclobenzaprine (Verified Adverse Reaction, Mild, MYALGIA, 11/04/20) irbesartan (Verified Adverse Reaction, Mild, LEG ACHES, 11/04/20) zolpidem (Verified Adverse Reaction, Mild, HEADACHES, 11/04/20) KUPMARKY HOLLIS MD Nov 10, 2020 12:45
[2020-11-10 14:00] VITALS: BP 135/59
== END 2020-11-10 16:30 | disposition home health service (06) | DRG 372 ==
LOC: M ED 13:16 → M ED INP 21:44 → ENRESERV 11-05 00:22 → M MSPAV 11-05 01:07
PROVIDERS: ADMIT Internal Medicine; ATTEND Internal Medicine
DX: A04.0 Enteropathogenic Escherichia coli infection (principal); I50.32 Chronic diastolic (congestive) heart failure; I11.0 Hypertensive heart disease with heart failure; D50.9 Iron deficiency anemia, unspecified; K21.9 Gastro-esophageal reflux disease without esophagitis; G47.33 Obstructive sleep apnea (adult) (pediatric); G47.00 Insomnia, unspecified; F41.1 Generalized anxiety disorder; F03.90 Unspecified dementia, unspecified severity, without behavioral disturbance, psychotic disturbance, mood disturbance, and anxiety; F32.9 Major depressive disorder, single episode, unspecified; Z79.899 Other long term (current) drug therapy; Z88.0 Allergy status to penicillin; Z88.6 Allergy status to analgesic agent; Z88.8 Allergy status to other drugs, medicaments and biological substances

== ENCOUNTER 2020-11-25 11:14 | Inpatient (IN) | payer MEDICARE ==
[~2020-11-25 11:14] MED LIST changes: +BACITAB PO; -KLOR10TA76 PO; +MELA5TAB21 PO; +MIRT-62 PO; +ONDA4TAB6 PO; +POTA-136 PO; +PROBCAP14 PO
[2020-11-25 12:50] LABS: BASO % 0.3 % (0.0-1.0); EOS # 0.2 10^3/uL (0.0-0.5); EOS % 2.2 % (0.0-3.0); HEMATOCRIT 36.4 % (36.0-47.0); HEMOGLOBIN 11.4 g/dl (12.0-15.5); LYMPH # 2.2 10^3/uL (1.5-5.0); LYMPH % 23.2 % (24.0-44.0); MEAN CORPUSCULAR HEMOGLOBIN 30.4 pg (27.0-33.0); MEAN CORPUSCULAR HGB CONC 31.3 g/dl (32.0-36.5); MEAN CORPUSCULAR VOLUME 97.1 fl (80.0-96.0); MONO # 0.8 10^3/uL (0.0-0.8); MONO % 8.2 % (2.0-8.0); NEUTROPHILS # 6.2 10^3/uL (1.5-8.5); NEUTROPHILS % 65.6 % (36.0-66.0); PLATELET COUNT, AUTOMATED 371 10^3/uL (150-450); RED BLOOD COUNT 3.75 10^6/uL (4.00-5.40); WHITE BLOOD COUNT 9.4 10^3/uL (4.0-10.0)
[2020-11-25 13:13] LABS: BLOOD UREA NITROGEN 15 MG/DL (7-18); CARBON DIOXIDE LEVEL 28 MEQ/L (21-32); CHLORIDE LEVEL 109 MEQ/L (98-107); CREATININE FOR GFR 0.79 MG/DL (0.55-1.30); GLOMERULAR FILTRATION RATE > 60.0 (>32); GLUCOSE, FASTING 113 MG/DL (70-100); POTASSIUM SERUM 4.1 MEQ/L (3.5-5.1); SODIUM LEVEL 142 MEQ/L (136-145)
[2020-11-25] MEDS ORDERED: CYCL-707 (13:57)
[2020-11-25] MEDS ORDERED: ROSU40TA4 PO (13:57)
[2020-11-25] MEDS ORDERED: CYCL5TAB PO (13:59)
[2020-11-25] MEDS ORDERED: TENS1TAB2 PO (17:08)
[2020-11-25] MEDS ORDERED: BACITAB PO (17:08)
[2020-11-25] MEDS ORDERED: CYCL-707 PO (17:08)
[2020-11-25] MEDS ORDERED: MIRT-62 PO (17:08)
[2020-11-25] MEDS ORDERED: HOME MED LIST COMPLETE! XX SCH (17:10)
[2020-11-25] MEDS ORDERED: MAALOX 30 ML SUSP *UDC PO PRN (18:05)
[2020-11-25] MEDS ORDERED: MOM 30ML SUSPENSION UDC PO PRN (18:05)
[2020-11-25] MEDS ORDERED: ONDANSETRON 4 MG ORAL DISINTEGRATING TAB PO PRN (18:05)
--- NOTE | 2020-11-25 18:05 | HPEPDOC ---
[facility] Medical History & Physical Date of Admission Nov 25, 2020 Date of Service: Nov 25, 2020 History and Physical CHIEF COMPLAINT: Delirium HISTORY OF PRESENT ILLNESS: Mrs. Scherer is a 85-year-old female, with a past medical history of dementia, recurrent C. difficile colitis, hypertension heart failure with preserved ejection fraction, generalized anxiety disorder GERD history of CVA osteoporosis DJD resection of hyperplastic clonic polyp and resection of tubular adenomas of the colon. Patient was brought to the ER by her daughter states that the patient has been acting more strangely and has been more confused for the past several days. Per report patient has recently started on Flexeril for headaches and the dose has been increased to 10 mg 3 times daily. Patient has been having difficulty orienting and has become less independent at home. Patient's daughter who is present at bedside states that the patient has been complaining of a lump in her groin but when questioned the patient she complains of pelvic pain to palpation in the left lateral hip. Patient was evaluated by PT in the ER. Was found to have inability to stand or ambulate, thus was deemed to require maximal assistance and is below safe level of mobility. Patient will be admitted to hospitalist service for PT eval. Patient was recently admitted in October 2020 for intractable diarrhea negative for C. difficile but positive for enteropathic E. coli. Patient developed diarrhea which resolved in the hospital. She was tested for celiac disease but the TTG IgA serology came back negative after discharge. PAST MEDICAL HISTORY: History of recurrent C. 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 Lives at home. is healthcare proxy. FAMILY HISTORY: Family history obtained from chart review. Her father had alcoholic liver disease, her mother had breast cancer along with double mastectomies, her brother had COPD secondary to tobacco use, one of her sisters her sister had PE, another sister had COPD ALLERGIES: Please see below. REVIEW OF SYSTEMS: 10 point ROS conducted, relevant findings noted in the HPI HOME MEDICATIONS: Please see below. PHYSICAL EXAMINATION: VITAL SIGNS: please see below General: NAD, comfortable HEENT: PERRLA, EOMI, sclerae clear Neck: supple, normal ROM, no JVD Respiratory: lungs CTAB, no wheeze, no rales, no crackles CVS: RRR, normal S1, S2, no murmurs Abdo: soft, no masses, no hepatosplenomegaly, BS+, no rebound tenderness : External genitourinary exam performed. ORTIZ Best present as ink printer. No lesions lumps noted on the external palpation of the labia majora and inguinal areas Extremities: no edema, pulses 2+ MSK: no joint deformities, normal ROM. Left lateral hip tender to palpation. Neuro: no focal neuro deficits, moving all 4 extremities, CN2-12 intact. Strength 5/5 in all 4 extremities. No nystagmus. Psych: calm, cooperative, AAO x 1 LABORATORY DATA: See below. IMAGING: Pelvic XR on 11/25/2020 IMPRESSION: Status post lumbar laminectomy and posterior element fusion. Degenerative sclerosis changes at the SI joints and symphysis. 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 No acute bony abnormality. Left femur XR on 11/25/2020 Osteoarthritis of the knee and hip. Diffuse osteopenia. No acute bony abnormality is appreciated. MICROBIOLOGY: Please see below. ASSESSMENT: Mrs. Scherer is a 85-year-old female, with a past medical history of dementia, recurrent C. difficile colitis, hypertension heart failure with preserved ejection fraction, generalized anxiety disorder GERD history of CVA osteoporosis DJD resection of hyperplastic clonic polyp and resection of tubular adenomas of the colon. Brought to the ER by her daughter complaining of altered mental status after starting on a high dose of Flexeril ,10 mg 3 times daily. . PLAN: AMS/delirium in setting of dementia, likely 2/2 medication (flexeril) - patient started on flexeril 10 mg TID on outpatient basis. - will hold, monitor for improvement in mentation - frequent re-orientation, clock on wall, window blinds open. Reported weight loss - patient was started on mirtazepine on prior admission - continue with mirtazepine 15 mg qhs. L hip pain, trouble ambulating - no hx of recent trauma - negative XR - PT/OT Essential hypertension -c/w bisoprolol 10 mg daily. Chronic HFpEF: euvolemic -Monitor I's and O's and weight MDD/ ALYCIA - c/w paroxetine 10 mg PO daily. Dispo: pending PT/OT evaluation. Vital Signs Vital Signs Date Time Temp Pulse Resp B/P (MAP) Pulse Ox O2 Delivery O2 Flow Rate FiO2 11/25/20 17:39 19 169/80 (109) 96 Room Air 11/25/20 15:15 71 11/25/20 11:33 96.7 3.0 Laboratory Data Labs 24H Laboratory Tests 2 11/25/20 12:32: Immature Granulocyte % (Auto) 0.5, Neutrophils (%) (Auto) 65.6, Lymphocytes (%) (Auto) 23.2L, Monocytes (%) (Auto) 8.2H, Eosinophils (%) (Auto) 2.2, Basophils (%) (Auto) 0.3, Neutrophils # (Auto) 6.2, Lymphocytes # (Auto) 2.2, Monocytes # (Auto) 0.8, Eosinophils # (Auto) 0.2, Basophils # (Auto) 0.0, Nucleated Red Blood Cells % (auto) 0.0, Anion Gap 5L, Glomerular Filtration Rate > 60.0, Calcium Level 10.0 11/25/20 17:30: 11/25/20 17:41: CBC/BMP Laboratory Tests 11/25/20 12:32 Home Medications Scheduled Apixaban (Eliquis) 2.5 Mg Tablet, 2.5 MG PO BID Bisoprolol Fumarate (Bisoprolol Fumarate) 10 Mg Tablet, 10 MG PO DAILY Diphenhydramine HCl (Benadryl) 25 Mg Capsule, 25 MG PO QHS Gabapentin (Gabapentin) 100 Mg Capsule, 200 MG PO BID L.acidoph/L.bulg/B.bif/S.therm (Bacid Caplet) 1 Each Tablet, 1 TAB PO DAILY Mirtazapine (Remeron) 15 Mg Tablet, 15 MG PO QHS Paroxetine HCl (Paroxetine) 10 Mg Tablet, 10 MG PO DAILY Rosuvastatin Calcium (Rosuvastatin Calcium) 40 Mg Tablet, 40 MG PO QHS Scheduled PRN Acetaminophen/Caffeine (Tension Headache Caplet) 1 Each Tablet, 1 TAB PO Q6H PRN for HEADACHE Diphenoxylate HCl/Atropine (Lomotil 2.5-0.025 mg Tablet) 1 Each Tablet, 1 TAB PO BID PRN for DIARRHEA Hydrocodone/Acetaminophen (Hydrocodone-Acetamin 10-325 mg) 1 Each Tablet, 2 TAB PO BID PRN for PAIN LEVEL 6-10 Loperamide HCl (Loperamide) 2 Mg Capsule, 2 MG PO Q6H PRN for AFTER EACH LOOSE STOOL Ondansetron (Ondansetron Odt) 4 Mg Tab.rapdis, 2 MG PO Q8HP PRN for NAUSEA OR VOMITING Allergies Coded Allergies: Penicillins (Verified Allergy, Mild, rash, 08/26/18) aspirin (Verified Allergy, Mild, rash, 08/26/18) tizanidine (Verified Allergy, Mild, VERTIGO, 11/04/20) atorvastatin (Verified Allergy, Unknown, 08/26/18) doxycycline (Verified Allergy, Unknown, 11/04/20) rivaroxaban (Verified Adverse Reaction, Intermediate, GI BLEED, 11/04/20) cyclobenzaprine (Verified Adverse Reaction, Mild, MYALGIA, 11/04/20) irbesartan (Verified Adverse Reaction, Mild, LEG ACHES, 11/04/20) zolpidem (Verified Adverse Reaction, Mild, HEADACHES, 11/04/20) Gluten Flour (Verified Adverse Reaction, Unknown, DIARRHEA, 11/25/20) A-FIB/CHADSVASC A-FIB History Current/History of A-Fib/PAF?: No Current PO Anticoag Therapy: Yes SAUNDRA HERRERA MD Nov 25, 2020 18:05
[2020-11-25] MEDS ORDERED: PILL CUTTER 1 EACH XX PRN (18:15)
[2020-11-25 18:35] LABS: RSV AMPLIFICATION NEGATIVE (NEGATIVE)
--- NOTE | 2020-11-25 18:46 | REP ---
INDICATION: c/o pain in L hip. COMPARISON: Comparison pelvic radiograph November 04, 2020. TECHNIQUE: Single AP view of the pelvis. FINDINGS: The bony pelvic ring remains intact. There is degenerative sclerosis and spur formation at the symphysis pubis and on either at the SI joints, the sclerosis is more pronounced on the left. Patient is status post L4 and L5 laminectomy and transpedicle screw interconnecting terrie bilateral posterior element fusion L4-5 and L5-S1. Side of the SI joints. The visualized bowel gas pattern is normal. There are pelvic phleboliths. The proximal femurs appear intact. There is mild bilateral acetabular spurring and chondrocalcinosis. No acute fracture or other acute bony abnormality is seen. No sacral fracture is seen. IMPRESSION: Status post lumbar laminectomy and posterior element fusion. Degenerative sclerosis changes at the SI joints and symphysis. 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 No acute bony abnormality. <Electronically signed by Abhijit Orosco > 11/25/20 1642
--- NOTE | 2020-11-25 18:48 | REP ---
INDICATION: c/o pain in L hip. COMPARISON: Comparison left knee radiographs May 22, 2019. TECHNIQUE: Four views of the left femur are obtained. FINDINGS: Four views of the left femur demonstrate advanced 3 compartment osteoarthritis and chondrocalcinosis at the knee. There is diffuse osteopenia. There is mild spurring and chondrocalcinosis at the hip as well. No fracture or other acute bony abnormality is seen. No opaque foreign body noted. IMPRESSION: Osteoarthritis of the knee and hip. Diffuse osteopenia. No acute bony abnormality is appreciated. <Electronically signed by Abhijit Orosco > 11/25/20 [id number]
[2020-11-25] MEDS: ACETAMINOPHEN TAB 650MG DOSE (2X325MG) PO PRN (20:24)
[2020-11-26] MEDS ORDERED: FIORICET TAB PO ONE (00:30)
[2020-11-26] MEDS: ROSUVASTATIN 10 MG TAB (CRESTOR) PO SCH ×2 (00:45→21:13)
[2020-11-26] MEDS: MIRTAZAPINE 15 MG TAB PO SCH ×2 (00:45→21:13)
[2020-11-26 02:45] VITALS: BP 154/62
[2020-11-26 06:28] LABS: BASO % 0.6 % (0.0-1.0); EOS # 0.2 10^3/uL (0.0-0.5); EOS % 3.4 % (0.0-3.0); HEMATOCRIT 38.1 % (36.0-47.0); LYMPH # 2.3 10^3/uL (1.5-5.0); LYMPH % 34.3 % (24.0-44.0); MEAN CORPUSCULAR HEMOGLOBIN 30.1 pg (27.0-33.0); MEAN CORPUSCULAR HGB CONC 31.5 g/dl (32.0-36.5); MEAN CORPUSCULAR VOLUME 95.5 fl (80.0-96.0); MONO # 0.5 10^3/uL (0.0-0.8); MONO % 7.6 % (2.0-8.0); NEUTROPHILS # 3.6 10^3/uL (1.5-8.5); NEUTROPHILS % 53.5 % (36.0-66.0); PLATELET COUNT, AUTOMATED 379 10^3/uL (150-450); RED BLOOD COUNT 3.99 10^6/uL (4.00-5.40); WHITE BLOOD COUNT 6.7 10^3/uL (4.0-10.0)
[2020-11-26 06:49] LABS: ALBUMIN 2.9 GM/DL (3.2-5.2); ALT/SGPT 18 U/L (12-78); BILIRUBIN,TOTAL 0.3 MG/DL (0.2-1.0); BLOOD UREA NITROGEN 13 MG/DL (7-18); CARBON DIOXIDE LEVEL 25 MEQ/L (21-32); CHLORIDE LEVEL 110 MEQ/L (98-107); CREATININE FOR GFR 0.56 MG/DL (0.55-1.30); GLOMERULAR FILTRATION RATE > 60.0 (>32); GLUCOSE, FASTING 111 MG/DL (70-100); POTASSIUM SERUM 3.9 MEQ/L (3.5-5.1); SODIUM LEVEL 142 MEQ/L (136-145); TOTAL PROTEIN 6.1 GM/DL (6.4-8.2)
[2020-11-26 07:05] VITALS: BP 122/56
[2020-11-26] MEDS: ENOXAPARIN 40MG/0.4ML SYRINGE (J1650 PER 10MG) SC SCH (08:44)
[2020-11-26] MEDS: bisoproloL fumarate 10 MG TAB PO SCH (08:45)
[2020-11-26] MEDS: LACTOBACILLUS ACIDOPHILUS CAP (BACID) PO SCH (08:45)
[2020-11-26] MEDS: PARoxetine 10MG TABLET PO SCH (08:45)
[2020-11-26 14:00] VITALS: BP 126/58
--- NOTE | 2020-11-26 15:49 | IPNPDOC ---
Date Seen The patient was seen on 11/26/20. Progress Note SUBJECTIVE: Patient was seen examined at baseline. Patient is alert oriented to person and place. She sitting on the edge of the bed eating breakfast. States he is comfortable. Continues to endorse left internal hip pain this time. States that her left lateral hip pain has improved. X-rays of the hip and pelvis showed no acute fractures on 11/25/2020. Patient denies chest pain shortness of breath palpitations nausea vomiting diarrhea. Was seen to be ambulating well with physical therapy. OBJECTIVE PHYSICAL EXAMINATION: VITAL SIGNS: please see below General: NAD, comfortable HEENT: PERRLA, EOMI, sclerae clear Neck: supple, normal ROM, no JVD Respiratory: lungs CTAB, no wheeze, no rales, no crackles CVS: RRR, normal S1, S2, no murmurs Abdo: soft, no masses, no hepatosplenomegaly, small periumbilical hernia noted, reducible, non tender to palpation BS+, no rebound tenderness Extremities: no edema, pulses 2+ MSK: no joint deformities, normal ROM. Left lateral hip tender to palpation. Neuro: no focal neuro deficits, moving all 4 extremities, CN2-12 intact. Strength 5/5 in all 4 extremities. No nystagmus. Psych: calm, cooperative, AAO x 2-3 LABORATORY DATA, IMAGING STUDIES, MICROBIOLOGY: Please see below. Pelvic US (11/27/20): IMPRESSION: 1. Prior hysterectomy.. 2. No pelvic fluid or adnexal mass lesion. 3. Small reducible right inguinal fat containing hernia suggested DVT prophylaxis ordered?: Yes ASSESSMENT: Mrs. Scherer is a 85-year-old female, with a past medical history of dementia, recurrent C. difficile colitis, hypertension heart failure with preserved ejection fraction, generalized anxiety disorder GERD history of CVA osteoporosis DJD resection of hyperplastic clonic polyp and resection of tubular adenomas of the colon. Brought to the ER by her daughter complaining of altered mental status after starting on a high dose of Flexeril 10 mg 3 times daily. . PLAN: AMS/delirium in setting of dementia, likely 2/2 medication (flexeril) - patient started on flexeril 10 mg TID on outpatient basis. - will hold, monitor for improvement in mentation - frequent re-orientation, clock on wall, window blinds open. Reported weight loss - patient was started on mirtazepine on prior admission - continue with mirtazepine 15 mg qhs. L hip pain, trouble ambulating - no hx of recent trauma - negative XR - PT/OT: Reviewed PT notes. Patient was able to complete ambulation 50 feet with a rolling walker. No safety concerns with ambulation. Patient stated that her is at home with his daughter who assist. PT recommending return home with services and rolling walker. Left groin pain -pelvic US reviewed as above - small reducible R inguinal fat containing hernia - d/w Dr. Chan, to place referral to his surgery clinic for eval. No indication for surgery while inpatient. Essential hypertension -c/w bisoprolol 10 mg daily. Chronic HFpEF: euvolemic -Monitor I's and O's and weight MDD/ ALYCIA - c/w paroxetine 10 mg PO daily. Dispo: pending clinical improvement. VS, I&O, 24H, Fishbone Vital Signs/I&O Vital Signs Date Time Temp Pulse Resp B/P (MAP) Pulse Ox O2 Delivery O2 Flow Rate FiO2 11/26/20 14:00 98.0 92 18 126/58 (80) 93 Room Air 11/25/20 11:33 3.0 I&O- Last 24 Hours up to 6 AM 11/26/20 05:59 Intake Total 300 ml Output Total 1 ml Balance 299 ml Laboratory Data 24H LABS Laboratory Tests 2 11/25/20 17:30: Urine Color YELLOW, Urine Appearance CLEAR, Urine pH 5.0, Urine Specific [place] 1.017, Urine Protein NEGATIVE, Urine Glucose (UA) NEGATIVE, Urine Ketones NEGATIVE, Urine Blood NEGATIVE, Urine Nitrite NEGATIVE, Urine Bilirubin NEGATIV E, Urine Urobilinogen 0.2, Urine Leukocyte Esterase NEGATIVE, Urine WBC (Auto) 1, Urine RBC (Auto) 1, Urine Hyaline Casts (Auto) 0, Urine Bacteria (Auto) NEGATIVE, Urine Squamous Epithelial Cells 0, Urine Mucus (Auto) SMALL, Urine Sperm (Auto) 11/25/20 17:41: Coronavirus (COVID-19)(PCR) NEGATIVE, Influenza Type A (RT-PCR) NEGATIVE, Influenza Type B (RT-PCR) NEGATIVE, Respiratory Syncytial Virus (PCR) NEGATIVE 11/26/20 05:30: Immature Granulocyte % (Auto) 0.6, Neutrophils (%) (Auto) 53.5, Lymphocytes (%) (Auto) 34.3, Monocytes (%) (Auto) 7.6, Eosinophils (%) (Auto) 3.4H, Basophils (%) (Auto) 0.6, Neutrophils # (Auto) 3.6, Lymphocytes # (Auto) 2.3, Monocytes # (Auto) 0.5, Eosinophils # (Auto) 0.2, Basophils # (Auto) 0.0, Nucleated Red Blood Cells % (auto) 0.0, Anion Gap 7L, Glomerular Filtration Rate > 60.0, Calcium Level 10.0, Magnesium Level 2.0, Total Bilirubin 0.3, Aspartate Amino Transf (AST/SGOT) 19, Alanine Aminotransferase (ALT/SGPT) 18, Alkaline Phosphatase 73, Total Protein 6.1L, Albumin 2.9L, Albumin/Globulin Ratio 0.9L CBC/BMP Laboratory Tests 11/26/20 05:30 SAUNDRA HERRERA MD Nov 26, 2020 15:49
[2020-11-26 22:00] VITALS: BP 120/63
[2020-11-27 06:00] VITALS: BP 121/70
[2020-11-27 06:49] LABS: BASO % 0.4 % (0.0-1.0); EOS # 0.2 10^3/uL (0.0-0.5); EOS % 2.8 % (0.0-3.0); HEMATOCRIT 38.3 % (36.0-47.0); HEMOGLOBIN 12.1 g/dl (12.0-15.5); LYMPH # 2.5 10^3/uL (1.5-5.0); LYMPH % 32.9 % (24.0-44.0); MEAN CORPUSCULAR HEMOGLOBIN 29.8 pg (27.0-33.0); MEAN CORPUSCULAR HGB CONC 31.6 g/dl (32.0-36.5); MEAN CORPUSCULAR VOLUME 94.3 fl (80.0-96.0); MONO # 0.6 10^3/uL (0.0-0.8); MONO % 7.4 % (2.0-8.0); NEUTROPHILS # 4.2 10^3/uL (1.5-8.5); PLATELET COUNT, AUTOMATED 416 10^3/uL (150-450); RED BLOOD COUNT 4.06 10^6/uL (4.00-5.40); WHITE BLOOD COUNT 7.6 10^3/uL (4.0-10.0)
[2020-11-27 07:19] LABS: ALBUMIN 2.9 GM/DL (3.2-5.2); ALT/SGPT 19 U/L (12-78); BILIRUBIN,TOTAL 0.3 MG/DL (0.2-1.0); BLOOD UREA NITROGEN 10 MG/DL (7-18); CALCIUM LEVEL 9.7 MG/DL (8.8-10.2); CARBON DIOXIDE LEVEL 24 MEQ/L (21-32); CHLORIDE LEVEL 111 MEQ/L (98-107); CREATININE FOR GFR 0.54 MG/DL (0.55-1.30); GLOMERULAR FILTRATION RATE > 60.0 (>32); GLUCOSE, FASTING 102 MG/DL (70-100); POTASSIUM SERUM 3.5 MEQ/L (3.5-5.1); SODIUM LEVEL 142 MEQ/L (136-145); TOTAL PROTEIN 6.1 GM/DL (6.4-8.2)
--- NOTE | 2020-11-27 07:21 | REP ---
INDICATION: L inguinal pain COMPARISON: None. TECHNIQUE: Transabdominal pelvic ultrasound followed by ultrasound of the left groin using linear high-frequency transducer.. FINDINGS: Bladder is unremarkable and measures 7.0 x 3.6 x 3.6 cm. Evidence for prior hysterectomy as corroborated with CT dated 09/26/2020. No pelvic fluid or adnexal mass lesions are identified. Evaluation of the left groin demonstrates small reducible fat containing hernia measuring 30 mm on Valsalva. IMPRESSION: 1. Prior hysterectomy.. 2. No pelvic fluid or adnexal mass lesion. 3. Small reducible right inguinal fat containing hernia suggested. <Electronically signed by Izaiah Garrido > 11/27/20 0705
[2020-11-27] MEDS ORDERED: ISOVUE-370 76% 100ML VIAL As Ordered ONE (09:13)
[2020-11-27] MEDS: bisoproloL fumarate 10 MG TAB PO SCH (10:07)
[2020-11-27] MEDS: ENOXAPARIN 40MG/0.4ML SYRINGE (J1650 PER 10MG) SC SCH (10:08)
[2020-11-27] MEDS: ACETAMINOPHEN TAB 650MG DOSE (2X325MG) PO PRN ×2 (10:08→20:37)
[2020-11-27] MEDS: LACTOBACILLUS ACIDOPHILUS CAP (BACID) PO SCH (10:08)
[2020-11-27] MEDS: PARoxetine 10MG TABLET PO SCH (10:08)
--- NOTE | 2020-11-27 10:24 | REP ---
INDICATION: assess for hernia COMPARISON: 09/26/2020. TECHNIQUE: CT Scan of the abdomen and pelvis was performed with intravenous administration of 100 cc of Isovue 370, and oral contrast. Sagittal and coronal reconstruction images are performed. FINDINGS: Lung bases: Unremarkable. Liver: A cyst in the liver measures 1.6 cm in diameter. Gallbladder: Prior cholecystectomy. Spleen: Normal. Adrenals: Normal. Pancreas: Normal. Kidneys: A cyst of the mid right kidney laterally measures 2.1 cm in diameter. There is no hydronephrosis bilaterally. Small and large bowel: There is left colon and sigmoid colon diverticulosis without definite evidence of acute diverticulitis. Loops of colon extend superiorly, anterior to the liver beneath the right hemidiaphragm. There is no free air or bowel obstruction. Free fluid: None. Abdominal aorta: No aneurysm or dissection. Adenopathy: None. Appendix: Not inflamed. Osseous structures: There are degenerative changes of the spine. There is posterior fusion hardware at L4 through S1, with laminectomy at these levels. Pelvis: No mass. There has been a prior hysterectomy. There is a small supraumbilical hernia in the midline containing nonobstructed small bowel loops. There are small bilateral femoral hernias containing noninflamed fat. IMPRESSION: Small supraumbilical hernia in the midline contains nonobstructed bowel loops. There are small bilateral femoral hernias containing noninflamed fat. No acute findings in the abdomen or pelvis. <Electronically signed by Franki Best > 11/27/20 [id number]
--- NOTE | 2020-11-27 13:09 | DS.PDOC ---
Discharge Summary General Date of Admission Nov 25, 2020 at 18:05 Date of Discharge 11/29/20 Discharge Summary PROCEDURES PERFORMED DURING STAY: [None]. ADMITTING DIAGNOSES: Altered mental status and delirium in the setting of dementia History of dementia Weight loss Left hip pain Difficulty ambulating History of essential hypertension Chronic heart failure with preserved ejection fraction, stable History of major depressive disorder/generalized anxiety disorder DISCHARGE DIAGNOSES: Altered mental status and delirium in the setting of dementia History of dementia Weight loss Left hip pain Difficulty ambulating History of essential hypertension Chronic heart failure with preserved ejection fraction, stable History of major depressive disorder/generalized anxiety disorder Acute right lower extremity DVT Bilateral femoral hernias, nonincarcerated Supraumbilical hernia nonincarcerated COMPLICATIONS/CHIEF COMPLAINT: Adr Skeletal Muscle Relaxant,Dementia W/Psychosis. HISTORY OF PRESENT ILLNESS: Mrs. Scherer is a 85-year-old female, with a past medical history of dementia, recurrent C. difficile colitis, hypertension heart failure with preserved ejection fraction, generalized anxiety disorder GERD history of CVA osteoporosis DJD resection of hyperplastic clonic polyp and resection of tubular adenomas of the colon. Patient was brought to the ER by her daughter states that the patient has been acting more strangely and has been more confused for the past several days. Per report patient has recently started on Flexeril for headaches and the dose has been increased to 10 mg 3 times daily. Patient has been having difficulty orienting and has become less independent at home. Patient's daughter who is present at bedside states that the patient has been complaining of a lump in her groin but when questioned the patient she complains of pelvic pain to palpation in the left lateral hip. Patient was evaluated by PT in the ER. Was found to have inability to stand or ambulate, thus was deemed to require maximal assistance and is below safe level of mobility. Patient will be admitted to hospitalist service for PT eval. Patient was recently admitted in October 2020 for intractable diarrhea negative for C. difficile but positive for enteropathic E. coli. Patient developed diarr hea which resolved in the hospital. She was tested for celiac disease but the TTG IgA serology came back negative after discharge. HOSPITAL COURSE: AMS/delirium in setting of dementia, likely 2/2 medication (flexeril) - resolved. - patient started on flexeril 10 mg TID on outpatient basis. - will hold, monitor for improvement in mentation - frequent re-orientation, clock on wall, window blinds open. -Mentation at baseline on discharge. R leg DVTs - seen on venous duplex on 11/28/20: non occlussive mid R femoral vein, occlusive mid right popliteal vein - patient has a hx of gross GI bleeding. Had a colonoscopy in 08/2020, diverticulosis - risk of recurrent GI bleeding. I dicussed with Dr. Cardenas, vascular surgery, regarding possiblity of placing an IVC filter, to which he agreed. - I discussed this with the patient's daughter, Geno, as well as her sister - IVC filter was placed without difficulty - the decision to start patient on AC is difficult, given risks of GI bleeding in the past. The patient is allergic to ASA - I discussed this with Dr. Fay, of hematology, who recommended we start with the prophylactic dose of eliquis, ie 2.5 mg BID - she requested that we refer the patient to her clinic. - I once again d/w with the patient's daughter, who agreed to start eliquis at 2.5 mg BID and to have close PCP follow up. Supraumbilical hernia - CT reviewed as above. Non tender, reducible - contains non obstructed bowerl loops - d/w Dr. Chan, no acute surgical management. Refer to general surgery clinic. Bilateral femoral hernias - contain non inflamed fat - unable to palpate when bearing down - currently pain free - per Dr. Chan, can refer to general surgery clinic Diarrhea - improved with lomotil - GI panel neg - GF diet. Reported weight loss - patient was started on mirtazepine on prior admission - continue with mirtazepine 15 mg qhs. L hip pain, trouble ambulating - no hx of recent trauma - negative XR - PT/OT: Reviewed PT notes. Patient was able to complete ambulation 50 feet with a rolling walker. No safety concerns with ambulation. Patient stated that her is at home with his daughter who assist. PT recommending return home with services and rolling walker. Left groin pain CT abdomen pelvis shows Essential hypertension -c/w bisoprolol 10 mg daily. Chronic HFpEF: euvolemic -Monitor I's and O's and weight MDD/ ALYCIA - c/w paroxetine 10 mg PO daily. DISCHARGE MEDICATIONS: Please see below. ALLERGIES: Please see below. PHYSICAL EXAMINATION ON DISCHARGE: VITAL SIGNS: please see below General: NAD, comfortable HEENT: PERRLA, EOMI, sclerae clear Neck: supple, normal ROM, no JVD Respiratory: lungs CTAB, no wheeze, no rales, no crackles CVS: RRR, normal S1, S2, no murmurs Abdo: soft, no masses, no hepatosplenomegaly, BS+, no rebound tenderness. Reducible supraumbilical hernia. Extremities: Right calf mildly swollen compared to left, pulses 2+ no cyanosis cap refill under 2 seconds MSK: no joint deformities, normal ROM Neuro: no focal neuro deficits, moving all 4 extremities, CN2-12 intact. Strength 5/5 in all 4 extremities. No nystagmus. Psych: calm, cooperative, AAO x 3 LABORATORY DATA: Please see below. IMAGING: Pelvic XR on 11/25/2020 IMPRESSION: Status post lumbar laminectomy and posterior element fusion. Degenerative sclerosis changes at the SI joints and symphysis. 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 No acute bony abnormality. Left femur XR on 11/25/2020 Osteoarthritis of the knee and hip. Diffuse osteopenia. No acute bony abnormality is appreciated. Bilateral venous duplex 11/27/20 IMPRESSION: Nonocclusive thrombus mid right femoral vein, occlusive thrombus mid right popliteal vein. CT abdomen pelvis with IV contrast on 11/27/2020 IMPRESSION: Small supraumbilical hernia in the midline contains nonobstructed bowel loops. There are small bilateral femoral hernias containing noninflamed fat. No acute findings in the abdomen or pelvis. Pelvic US, complete (11/27/20): IMPRESSION: 1. Prior hysterectomy.. 2. No pelvic fluid or adnexal mass lesion. 3. Small reducible right inguinal fat containing hernia suggested. PROGNOSIS: Good ACTIVITY: [As tolerated]. DIET: Gluten-free diet DISCHARGE PLAN: Discharge patient with home health. Patient to continue with Eliquis 2.5 mg twice daily for the treatment of right lower extremity DVT. Referred to hematology clinic to follow-up in 1 to 2 weeks. Referred to surgical clinic with Dr. Chan in 2 weeks for further evaluation of nonincarcerated and stable bilateral inguinal hernias as well as a supraumbilical hernia. DISPOSITION: . DISCHARGE CONDITION: [Stable]. TIME SPENT ON DISCHARGE: 35 minutes Vital Signs/I&Os Vital Signs Date Time Temp Pulse Resp B/P (MAP) Pulse Ox O2 Delivery O2 Flow Rate FiO2 11/27/20 10:07 84 122/82 11/27/20 06:00 97.9 18 97 Room Air 11/25/20 11:33 3.0 I&O- Last 24 Hours up to 6 AM 11/27/20 06:00 Intake Total 980 ml Balance 980 ml Laboratory Data Labs 24H Laboratory Tests 2 11/27/20 05:29: Immature Granulocyte % (Auto) 0.5, Neutrophils (%) (Auto) 56.0, Lymphocytes (%) (Auto) 32.9, Monocytes (%) (Auto) 7.4, Eosinophils (%) (Auto) 2.8, Basophils (%) (Auto) 0.4, Neutrophils # (Auto) 4.2, Lymphocytes # (Auto) 2.5, Monocytes # (Auto) 0.6, Eosinophils # (Auto) 0.2, Basophils # (Auto) 0.0, Nucleated Red Blood Cells % (auto) 0.0, Anion Gap 7L, Glomerular Filtration Rate > 60.0, Calcium Level 9.7, Magnesium Level 2.0, Total Bilirubin 0.3, Aspartate Amino Transf (AST/SGOT) 18, Alanine Aminotransferase (ALT/SGPT) 19, Alkaline Phosphatase 78, Total Protein 6.1L, Albumin 2.9L, Albumin/Globulin Ratio 0.9L CBC/BMP Laboratory Tests 11/27/20 05:29 Microbiology Microbiology 11/27/20 Gastrointestinal Tract Panel (PCR) - Final, Complete Discharge Medications Scheduled Apixaban (Eliquis) 2.5 Mg Tablet, 2.5 MG PO BID Bisoprolol Fumarate (Bisoprolol Fumarate) 10 Mg Tablet, 10 MG PO DAILY, (Reporte d) Diphenhydramine HCl (Benadryl) 25 Mg Capsule, 25 MG PO QHS, (Reported) Gabapentin (Gabapentin) 100 Mg Capsule, 200 MG PO BID, (Reported) L.acidoph/L.bulg/B.bif/S.therm (Bacid Caplet) 1 Each Tablet, 1 TAB PO DAILY, (Reported) Mirtazapine (Remeron) 15 Mg Tablet, 15 MG PO QHS, (Reported) Paroxetine HCl (Paroxetine) 10 Mg Tablet, 10 MG PO DAILY, (Reported) Rosuvastatin Calcium (Rosuvastatin Calcium) 40 Mg Tablet, 40 MG PO QHS, (Reported) Scheduled PRN Acetaminophen/Caffeine (Tension Headache Caplet) 1 Each Tablet, 1 TAB PO Q6H PRN for HEADACHE, (Reported) Diphenoxylate HCl/Atropine (Lomotil 2.5-0.025 mg Tablet) 1 Each Tablet, 1 TAB PO BID PRN for DIARRHEA Hydrocodone/Acetaminophen (Hydrocodone-Acetamin 10-325 mg) 1 Each Tablet, 2 TAB PO BID PRN for PAIN LEVEL 6-10, (Reported) Loperamide HCl (Loperamide) 2 Mg Capsule, 2 MG PO Q6H PRN for AFTER EACH LOOSE STOOL, (Reported) Ondansetron (Ondansetron Odt) 4 Mg Tab.rapdis, 2 MG PO Q8HP PRN for NAUSEA OR VOMITING Allergies Coded Allergies: Penicillins (Verified Allergy, Mild, rash, 08/26/18) aspirin (Verified Allergy, Mild, rash, 08/26/18) tizanidine (Verified Allergy, Mild, VERTIGO, 11/04/20) atorvastatin (Verified Allergy, Unknown, 08/26/18) doxycycline (Verified Allergy, Unknown, 11/04/20) rivaroxaban (Verified Adverse Reaction, Intermediate, GI BLEED, 11/04/20) cyclobenzaprine (Verified Adverse Reaction, Mild, MYALGIA, 11/04/20) irbesartan (Verified Adverse Reaction, Mild, LEG ACHES, 11/04/20) zolpidem (Verified Adverse Reaction, Mild, HEADACHES, 11/04/20) Gluten Flour (Verified Adverse Reaction, Unknown, DIARRHEA, 11/25/20) SAUNDRA HERRERA MD Nov 27, 2020 13:09
[2020-11-27] MEDS ORDERED: CYCL5TAB PO (13:14)
[2020-11-27] MEDS ORDERED: LOMOTIL 2.5MG/0.025MG TABLET PO ONE (13:20)
[2020-11-27] MEDS ORDERED: LOMO2.5T PO (13:20)
[2020-11-27] MEDS: ROSUVASTATIN 10 MG TAB (CRESTOR) PO SCH (20:37)
[2020-11-27] MEDS: MIRTAZAPINE 15 MG TAB PO SCH (20:38)
[2020-11-27 21:00] VITALS: BP 130/70
[2020-11-27] MEDS ORDERED: RAMELTEON 8 MG TAB (ROZEREM) PO PRN (22:50)
[2020-11-28 05:42] VITALS: BP 128/72
[2020-11-28 06:58] LABS: BASO # 0.1 10^3/uL (0.0-0.2); BASO % 0.7 % (0.0-1.0); EOS # 0.2 10^3/uL (0.0-0.5); EOS % 2.8 % (0.0-3.0); HEMATOCRIT 36.4 % (36.0-47.0); HEMOGLOBIN 11.5 g/dl (12.0-15.5); LYMPH # 2.6 10^3/uL (1.5-5.0); LYMPH % 36.3 % (24.0-44.0); MEAN CORPUSCULAR HEMOGLOBIN 30.1 pg (27.0-33.0); MEAN CORPUSCULAR HGB CONC 31.6 g/dl (32.0-36.5); MEAN CORPUSCULAR VOLUME 95.3 fl (80.0-96.0); MONO # 0.6 10^3/uL (0.0-0.8); MONO % 8.5 % (2.0-8.0); NEUTROPHILS # 3.6 10^3/uL (1.5-8.5); NEUTROPHILS % 50.8 % (36.0-66.0); PLATELET COUNT, AUTOMATED 371 10^3/uL (150-450); RED BLOOD COUNT 3.82 10^6/uL (4.00-5.40); WHITE BLOOD COUNT 7.1 10^3/uL (4.0-10.0)
[2020-11-28 07:19] LABS: ALBUMIN 2.8 GM/DL (3.2-5.2); ALT/SGPT 21 U/L (12-78); BILIRUBIN,TOTAL 0.3 MG/DL (0.2-1.0); BLOOD UREA NITROGEN 12 MG/DL (7-18); CALCIUM LEVEL 9.5 MG/DL (8.8-10.2); CARBON DIOXIDE LEVEL 24 MEQ/L (21-32); CHLORIDE LEVEL 110 MEQ/L (98-107); CREATININE FOR GFR 0.58 MG/DL (0.55-1.30); GLOMERULAR FILTRATION RATE > 60.0 (>32); GLUCOSE, FASTING 105 MG/DL (70-100); MAGNESIUM LEVEL 1.9 MG/DL (1.8-2.4); POTASSIUM SERUM 3.6 MEQ/L (3.5-5.1); SODIUM LEVEL 144 MEQ/L (136-145); TOTAL PROTEIN 5.9 GM/DL (6.4-8.2)
--- NOTE | 2020-11-28 07:46 | IPNPDOC ---
Date Seen The patient was seen on 11/27/20. Progress Note SUBJECTIVE: Patient was seen examined at baseline. Patient is oriented oriented to person and place. Denies CP, palpitations, SOB, abdo pain, fevers or chills. Diarrhea present, ~4-5 loose BMs. OBJECTIVE PHYSICAL EXAMINATION: VITAL SIGNS: please see below General: NAD, comfortable HEENT: PERRLA, EOMI, sclerae clear Neck: supple, normal ROM, no JVD Respiratory: lungs CTAB, no wheeze, no rales, no crackles CVS: RRR, normal S1, S2, no murmurs Abdo: soft, no masses, no hepatosplenomegaly, BS+, no rebound tenderness. Small periumbilical hernia, reducible. Extremities: no edema, pulses 2+. MSK: no joint deformities, normal ROM Neuro: no focal neuro deficits, moving all 4 extremities, CN2-12 intact. Strength 5/5 in all 4 extremities. No nystagmus. Psych: calm, cooperative, AAO x 3 LABORATORY DATA, IMAGING STUDIES, MICROBIOLOGY: Please see below. CT abdomen pelvis with IV contrast on 11/27/2020 IMPRESSION: Small supraumbilical hernia in the midline contains nonobstructed bowel loops. There are small bilateral femoral hernias containing noninflamed fat. No acute findings in the abdomen or pelvis. Pelvic US, complete (11/27/20): IMPRESSION: 1. Prior hysterectomy.. 2. No pelvic fluid or adnexal mass lesion. 3. Small reducible right inguinal fat containing hernia suggested. DVT prophylaxis ordered?: Yes ASSESSMENT: Mrs. Scherer is a 85-year-old female, with a past medical history of dementia, recurrent C. difficile colitis, hypertension heart failure with preserved ejection fraction, generalized anxiety disorder GERD history of CVA osteoporosis DJD resection of hyperplastic clonic polyp and resection of tubular adenomas of the colon. Brought to the ER by her daughter complaining of altered mental status after starting on a high dose of Flexeril ,10 mg 3 times daily. . PLAN: AMS/delirium in setting of dementia, likely 2/2 medication (flexeril) - resolved. - patient started on flexeril 10 mg TID on outpatient basis. - will hold, monitor for improvement in mentation - frequent re-orientation, clock on wall, window blinds open. Supraumbilical hernia - CT reviewed as above. Non tender, reducible - contains non obstructed bowerl loops - d/w Dr. Chan, no acute surgical management. Refer to general surgery clinic. Bilateral femoral hernias - contain non inflamed fat - unable to palpate when bearing down - currently pain free - per Dr. Chan, can refer to general surgery clinic Diarrhea - has chronic hx. - GI panel neg - celiac screen neg - will convert to gluten free diet on request from family - trial lomotil Reported weight loss - patient was started on mirtazepine on prior admission - continue with mirtazepine 15 mg qhs. L hip pain, trouble ambulating - no hx of recent trauma - negative XR - PT/OT: Reviewed PT notes. Patient was able to complete ambulation 50 feet with a rolling walker. No safety concerns with ambulation. Patient stated that her is at home with his daughter who assist. PT recommending return home with services and rolling walker. Left groin pain CT abdomen pelvis shows Essential hypertension -c/w bisoprolol 10 mg daily. Chronic HFpEF: euvolemic -Monitor I's and O's and weight MDD/ ALYCIA - c/w paroxetine 10 mg PO daily. Dispo: pending PT/OT evaluation. VS, I&O, 24H, Fishbone Vital Signs/I&O Vital Signs Date Time Temp Pulse Resp B/P (MAP) Pulse Ox O2 Delivery O2 Flow Rate FiO2 11/28/20 05:42 97.3 76 19 128/72 (90) 96 11/27/20 21:00 Room Air 11/25/20 11:33 3.0 I&O- Last 24 Hours up to 6 AM 11/28/20 06:00 Intake Total 770 ml Balance 770 ml Laboratory Data 24H LABS Laboratory Tests 2 11/28/20 05:42: Immature Granulocyte % (Auto) 0.9, Neutrophils (%) (Auto) 50.8, Lymphocytes (%) (Auto) 36.3, Monocytes (%) (Auto) 8.5H, Eosinophils (%) (Auto) 2.8, Basophils (%) (Auto) 0.7, Neutrophils # (Auto) 3.6, Lymphocytes # (Auto) 2.6, Monocytes # (Auto) 0.6, Eosinophils # (Auto) 0.2, Basophils # (Auto) 0.1, Nucleated Red Blood Cells % (auto) 0.0, Anion Gap 10, Glomerular Filtration Rate > 60.0, Calcium Level 9.5, Magnesium Level 1.9, Total Bilirubin 0.3, Aspartate Amino Transf (AST/SGOT) 17, Alanine Aminotransferase (ALT/SGPT) 21, Alkaline Phosphatase 73, Total Protein 5.9L, Albumin 2.8L, Albumin/Globulin Ratio 0.9L CBC/BMP Laboratory Tests 11/28/20 05:42 Microbiology Microbiology 11/27/20 Gastrointestinal Tract Panel (PCR) - Final, Complete SAUNDRA HERRERA MD Nov 28, 2020 07:46
--- NOTE | 2020-11-28 07:46 | IPNPDOC ---
Date Seen The patient was seen on 11/28/20. Progress Note SUBJECTIVE: Patient seen examined at bedside. Doing well. Her diarrhea has improved with a trial of Lomotil. She denies any abdominal pain. No bleeding overnight after starting blood thinner. No fevers chills nausea vomiting diarrhea chest pain palpitations or shortness of breath. OBJECTIVE PHYSICAL EXAMINATION: VITAL SIGNS: please see below General: NAD, comfortable HEENT: PERRLA, EOMI, sclerae clear Neck: supple, normal ROM, no JVD Respiratory: lungs CTAB, no wheeze, no rales, no crackles CVS: RRR, normal S1, S2, no murmurs Abdo: soft, no masses, no hepatosplenomegaly, BS+, no rebound tenderness. Reducible hernia. Extremities: no edema, pulses 2+ MSK: no joint deformities, normal ROM Neuro: no focal neuro deficits, moving all 4 extremities, CN2-12 intact. Strength 5/5 in all 4 extremities. No nystagmus. Psych: calm, cooperative, AAO x 3 LABORATORY DATA, IMAGING STUDIES, MICROBIOLOGY: Please see below. Bilateral venous duplex 11/27/20 IMPRESSION: Nonocclusive thrombus mid right femoral vein, occlusive thrombus mid right popliteal vein. CT abdomen pelvis with IV contrast on 11/27/2020 IMPRESSION: Small supraumbilical hernia in the midline contains nonobstructed bowel loops. There are small bilateral femoral hernias containing noninflamed fat. No acute findings in the abdomen or pelvis. Pelvic US, complete (11/27/20): IMPRESSION: 1. Prior hysterectomy.. 2. No pelvic fluid or adnexal mass lesion. 3. Small reducible right inguinal fat containing hernia suggested. DVT prophylaxis ordered?: Yes ASSESSMENT: Mrs. Scherer is a 85-year-old female, with a past medical history of dementia, recurrent C. difficile colitis, hypertension heart failure with preserved ejection fraction, generalized anxiety disorder GERD history of CVA osteoporosis DJD resection of hyperplastic clonic polyp and resection of tubular adenomas of the colon. Brought to the ER by her daughter complaining of altered mental status after starting on a high dose of Flexeril ,10 mg 3 times daily. . PLAN: AMS/delirium in setting of dementia, likely 2/2 medication (flexeril) - resolved. - patient started on flexeril 10 mg TID on outpatient basis. - will hold, monitor for improvement in mentation - frequent re-orientation, clock on wall, window blinds open. R leg DVTs - seen on venous duplex on 11/28/20: non occlussive mid R femoral vein, occlusive mid right popliteal vein - patient has a hx of gross GI bleeding. Had a colonoscopy in 08/2020, diverticulosis - risk of recurrent GI bleeding. I dicussed with Dr. Cardenas, vascular surgery, regarding possiblity of placing an IVC filter, to which he agreed. - I discussed this with the patient's daughter, Michi, as well as her sister - IVC filter was placed without difficulty - the decision to start patient on AC is difficult, given risks of GI bleeding in the past. The patient is allergic to ASA - I discussed this with Dr. Fay, of hematology, who recommended we start with the prophylactic dose of eliquis, ie 2.5 mg BID - she requested that we refer the patient to her clinic. - I once again d/w with the patient's daughter, who agreed to start eliquis at 2.5 mg BID and to have close PCP follow up. - we will continue to monitor patient's hemoglobin while she is in hospital. Supraumbilical hernia - CT reviewed as above. Non tender, reducible - contains non obstructed bowerl loops - d/w Dr. Chan, no acute surgical management. Refer to general surgery clinic. Bilateral femoral hernias - contain non inflamed fat - unable to palpate when bearing down - currently pain free - per Dr. Chan, can refer to general surgery clinic Diarrhea - improved with lomotil - GI panel neg - GF diet. Reported weight loss - patient was started on mirtazepine on prior admission - continue with mirtazepine 15 mg qhs. L hip pain, trouble ambulating - no hx of recent trauma - negative XR - PT/OT: Reviewed PT notes. Patient was able to complete ambulation 50 feet with a rolling walker. No safety concerns with ambulation. Patient stated that her is at home with his daughter who assist. PT recommending return home with services and rolling walker. Left groin pain CT abdomen pelvis shows Essential hypertension -c/w bisoprolol 10 mg daily. Chronic HFpEF: euvolemic -Monitor I's and O's and weight MDD/ ALYCIA - c/w paroxetine 10 mg PO daily. Dispo: pending PT/OT evaluation. VS, I&O, 24H, Fishbone Vital Signs/I&O Vital Signs Date Time Temp Pulse Resp B/P (MAP) Pulse Ox O2 Delivery O2 Flow Rate FiO2 11/28/20 05:42 97.3 76 19 128/72 (90) 96 11/27/20 21:00 Room Air 11/25/20 11:33 3.0 I&O- Last 24 Hours up to 6 AM 11/28/20 06:00 Intake Total 770 ml Balance 770 ml Laboratory Data 24H LABS Laboratory Tests 2 11/28/20 05:42: Immature Granulocyte % (Auto) 0.9, Neutrophils (%) (Auto) 50.8, Lymphocytes (%) (Auto) 36.3, Monocytes (%) (Auto) 8.5H, Eosinophils (%) (Auto) 2.8, Basophils (%) (Auto) 0.7, Neutrophils # (Auto) 3.6, Lymphocytes # (Auto) 2.6, Monocytes # (Auto) 0.6, Eosinophils # (Auto) 0.2, Basophils # (Auto) 0.1, Nucleated Red Blood Cells % (auto) 0.0, Anion Gap 10, Glomerular Filtration Rate > 60.0, Calcium Level 9.5, Magnesium Level 1.9, Total Bilirubin 0.3, Aspartate Amino Transf (AST/SGOT) 17, Alanine Aminotransferase (ALT/SGPT) 21, Alkaline Phospha tase 73, Total Protein 5.9L, Albumin 2.8L, Albumin/Globulin Ratio 0.9L CBC/BMP Laboratory Tests 11/28/20 05:42 Microbiology Microbiology 11/27/20 Gastrointestinal Tract Panel (PCR) - Final, Complete SAUNDRA HERRERA MD Nov 28, 2020 07:46
[2020-11-28] MEDS: PARoxetine 10MG TABLET PO SCH (10:14)
[2020-11-28] MEDS: ENOXAPARIN 40MG/0.4ML SYRINGE (J1650 PER 10MG) SC SCH (10:14)
[2020-11-28] MEDS: LACTOBACILLUS ACIDOPHILUS CAP (BACID) PO SCH (10:14)
[2020-11-28] MEDS: ACETAMINOPHEN TAB 650MG DOSE (2X325MG) PO PRN (10:15)
[2020-11-28] MEDS: bisoproloL fumarate 10 MG TAB PO SCH (10:16)
--- NOTE | 2020-11-28 11:44 | REP ---
INDICATION: d/o DVT COMPARISON: 02/18/2019. TECHNIQUE: Real time compression and duplex Doppler interrogation of the bilateral lower extremity deep venous system is performed. Compression ultrasound is performed of the bilateral peroneal and posterior tibial veins. FINDINGS: There is nonocclusive thrombus in the mid right femoral vein and occlusive thrombus in the mid right popliteal vein. The left deep vein system demonstrates compressibility with no intraluminal thrombus. There is a complex left popliteal cyst measuring 6.4 x 1.0 x 3.7 cm. No thrombus is seen in the bilateral visualized portions of the peroneal and posterior tibial veins. IMPRESSION: Nonocclusive thrombus mid right femoral vein, occlusive thrombus mid right popliteal vein. <Electronically signed by Franki Best > 11/28/20 [id number]
[2020-11-28] MEDS ORDERED: APIXABAN 5 MG TAB (ELIQUIS) PO SCH (12:05)
[2020-11-28] MEDS ORDERED: traMADol 50 MG TAB PO ONE (13:00)
[2020-11-28 14:00] VITALS: BP 162/77
[2020-11-28] MEDS ORDERED: LOMOTIL 2.5MG/0.025MG TABLET PO PRN (14:40)
[2020-11-28] MEDS ORDERED: MIDAZOLAM INJ 2MG/2ML VIAL (J2250 PER 1MG) As Ordered ONE (15:47)
[2020-11-28] MEDS ORDERED: LIDOCAINE 1% MDV 20ML VIAL As Ordered ONE (15:47)
[2020-11-28] MEDS ORDERED: fentaNYL 100 MCG/2 ML INJECTION (J3010) As Ordered ONE (15:47)
[2020-11-28] MEDS ORDERED: ISOVUE-300 61% 50ML VIAL As Ordered ONE (15:47)
[2020-11-28 17:22] VITALS: BP 122/70
[2020-11-28] MEDS ORDERED: FIORICET TAB PO ONE (21:05)
[2020-11-28] MEDS: MIRTAZAPINE 15 MG TAB PO SCH (21:10)
[2020-11-28] MEDS: ROSUVASTATIN 10 MG TAB (CRESTOR) PO SCH (21:10)
[2020-11-28] MEDS: APIXABAN 2.5 MG TAB (ELIQUIS) PO SCH (21:10)
[2020-11-28 22:00] VITALS: BP 179/94
[2020-11-29 06:00] VITALS: BP 138/64
[2020-11-29 06:03] LABS: BASO % 0.5 % (0.0-1.0); EOS # 0.3 10^3/uL (0.0-0.5); EOS % 3.2 % (0.0-3.0); HEMOGLOBIN 11.6 g/dl (12.0-15.5); LYMPH # 2.5 10^3/uL (1.5-5.0); LYMPH % 28.2 % (24.0-44.0); MEAN CORPUSCULAR HEMOGLOBIN 29.9 pg (27.0-33.0); MEAN CORPUSCULAR HGB CONC 31.4 g/dl (32.0-36.5); MEAN CORPUSCULAR VOLUME 95.4 fl (80.0-96.0); MONO # 0.7 10^3/uL (0.0-0.8); MONO % 8.4 % (2.0-8.0); NEUTROPHILS # 5.2 10^3/uL (1.5-8.5); PLATELET COUNT, AUTOMATED 332 10^3/uL (150-450); RED BLOOD COUNT 3.88 10^6/uL (4.00-5.40); WHITE BLOOD COUNT 8.8 10^3/uL (4.0-10.0)
[2020-11-29 06:39] LABS: ALBUMIN 2.9 GM/DL (3.2-5.2); ALT/SGPT 24 U/L (12-78); BILIRUBIN,TOTAL 0.3 MG/DL (0.2-1.0); BLOOD UREA NITROGEN 12 MG/DL (7-18); CALCIUM LEVEL 9.4 MG/DL (8.8-10.2); CARBON DIOXIDE LEVEL 23 MEQ/L (21-32); CHLORIDE LEVEL 111 MEQ/L (98-107); CREATININE FOR GFR 0.61 MG/DL (0.55-1.30); GLOMERULAR FILTRATION RATE > 60.0 (>32); GLUCOSE, FASTING 104 MG/DL (70-100); POTASSIUM SERUM 3.5 MEQ/L (3.5-5.1); SODIUM LEVEL 142 MEQ/L (136-145); TOTAL PROTEIN 5.7 GM/DL (6.4-8.2)
[2020-11-29] MEDS: APIXABAN 2.5 MG TAB (ELIQUIS) PO SCH (08:51)
[2020-11-29] MEDS: PARoxetine 10MG TABLET PO SCH (08:51)
[2020-11-29] MEDS: LACTOBACILLUS ACIDOPHILUS CAP (BACID) PO SCH (08:51)
[2020-11-29 08:57] VITALS: BP 126/63
[2020-11-29] MEDS: bisoproloL fumarate 10 MG TAB PO SCH (08:57)
[2020-11-29] MEDS ORDERED: ELIQ2.5T PO ×2 (10:37→11:38)
[2020-11-29] MEDS ORDERED: LOMOTIL 2.5MG/0.025MG TABLET PO ONE (11:00)
[2020-11-29] MEDS: ACETAMINOPHEN TAB 650MG DOSE (2X325MG) PO PRN (12:47)
--- NOTE | 2020-12-15 12:51 | ROOPDOC ---
[facility] Report Of Operation Report of Operation DATE OF PROCEDURE: 11/28/20 PREPROCEDURE DIAGNOSES: Right femoral and popliteal vein DVT POSTPROCEDURE DIAGNOSES: Right femoral and popliteal vein DVT PROCEDURE PERFORMED: IVC filter insertion SURGEON: Erinn Cardenas MD ANESTHESIA: Local and sedation ESTIMATED BLOOD LOSS: Approximately 1mL COMPLICATIONS: None. FINDINGS: IVC filter in good position DESCRIPTION OF PROCEDURE: Patient was brought to the angio suite and placed on the angio table in supine position. After anesthesia was administered both groins were prepped and draped in standard surgical fashion. Under ultrasound guidance entry into the right common femoral vein was made with a micropuncture needle and over guidewire exchange a microsheath was inserted. A 0.035 inch guidewire was inserted and placed in the SVC. The micro sheath was then exchanged for the [employer] IVC filter sheath system and the tip of the sheath was placed at the L1-L2 level. Venography was performed and revealed no thrombus in the IVC and location of both renal veins. The inner sheath was removed and the IVC filter was loaded onto the system. The IVC filter was deployed below the lowest renal vein and in good position. A completion venography confirmed good location and apposition of the IVC filter. The sheath was removed and direct manual pressure was held at the puncture site.. ERINN CARDENAS MD Dec 15, 2020 12:51
== END 2020-11-29 14:45 | disposition home health service (06) | DRG 556 ==
LOC: EDBD 11:14 → M ED 11:14 → M ED INP 18:05 → M MSPAV 23:49
PROVIDERS: ADMIT Family Medicine; ATTEND Family Medicine
PROC: 06H03DZ Insertion of Intraluminal Device into Inferior Vena Cava, Percutaneous Approach (ICD-10-PCS; principal; 2020-11-28 16:00)
DX: M25.552 Pain in left hip (principal); I50.32 Chronic diastolic (congestive) heart failure; I82.431 Acute embolism and thrombosis of right popliteal vein; I82.411 Acute embolism and thrombosis of right femoral vein; F03.90 Unspecified dementia, unspecified severity, without behavioral disturbance, psychotic disturbance, mood disturbance, and anxiety; I11.0 Hypertensive heart disease with heart failure; F41.1 Generalized anxiety disorder; K21.9 Gastro-esophageal reflux disease without esophagitis; M81.0 Age-related osteoporosis without current pathological fracture; R63.4 Abnormal weight loss; R41.0 Disorientation, unspecified; K40.20 Bilateral inguinal hernia, without obstruction or gangrene, not specified as recurrent; K42.9 Umbilical hernia without obstruction or gangrene; F32.9 Major depressive disorder, single episode, unspecified; Z79.899 Other long term (current) drug therapy; Z88.0 Allergy status to penicillin; Z88.6 Allergy status to analgesic agent; Z88.8 Allergy status to other drugs, medicaments and biological substances; Z91.018 Allergy to other foods; T48.1X5A Adverse effect of skeletal muscle relaxants [neuromuscular blocking agents], initial encounter

== ENCOUNTER → 2020-12-04 | Outpatient (CLI) | payer MEDICARE ==
[~2020-12-04] MED LIST changes: +CYCL-707; +ELIQ2.5T PO; +ROSU40TA4 PO
[2020-12-04 13:59] LABS: ALBUMIN 3.3 GM/DL (3.2-5.2); ALT/SGPT 23 U/L (12-78); BILIRUBIN,TOTAL 0.4 MG/DL (0.2-1.0); BLOOD UREA NITROGEN 18 MG/DL (7-18); CALCIUM LEVEL 10.1 MG/DL (8.8-10.2); CARBON DIOXIDE LEVEL 26 MEQ/L (21-32); CHLORIDE LEVEL 110 MEQ/L (98-107); CREATININE FOR GFR 0.64 MG/DL (0.55-1.30); GLOMERULAR FILTRATION RATE > 60.0 (>32); GLUCOSE, FASTING 122 MG/DL (70-100); POTASSIUM SERUM 4.6 MEQ/L (3.5-5.1); SODIUM LEVEL 142 MEQ/L (136-145); TOTAL PROTEIN 6.5 GM/DL (6.4-8.2)
== END ==
LOC: M PLALAB 11:34
PROVIDERS: ATTEND Physician Assistant Medical
DX: T50.905D Adverse effect of unspecified drugs, medicaments and biological substances, subsequent encounter (principal)
CPT/HCPCS: 36415; 80053; 99496; G0463

== ENCOUNTER → 2021-01-05 | Outpatient (REF) | payer MEDICARE | LOC: M SFHCPLAZ 14:00 | PROVIDERS: ATTEND Internal Medicine Infectious Disease | DX: R19.7 Diarrhea, unspecified (principal); Z86.19 Personal history of other infectious and parasitic diseases | CPT/HCPCS: 87505; G0463 ==

== ENCOUNTER → 2021-01-07 | Outpatient (CLI) | payer MEDICARE ==
--- NOTE | 2021-01-07 14:23 | REP ---
INDICATION: IMPAIRED FASTING GLUCOSE COMPARISON: 08/26/2018 TECHNIQUE: AP, lateral, bilateral oblique, and coned-down views of the lumbar spine. FINDINGS: Laminectomy and posterior fixation at L4-S1 again noted and stable. Advanced multilevel degenerative changes include endplate sclerosis, disc space narrowing, osteophytosis and facet hypertrophy. No acute fracture/compression injury. IMPRESSION: Stable postsurgical changes. Advanced multilevel degenerative spondylosis. <Electronically signed by Izaiah Garrido > 01/07/21 1311
[2021-01-07 15:24] LABS: BASO % 0.4 % (0.0-1.0); EOS # 0.3 10^3/uL (0.0-0.5); EOS % 3.6 % (0.0-3.0); HEMATOCRIT 36.3 % (36.0-47.0); LYMPH # 2.1 10^3/uL (1.5-5.0); LYMPH % 25.5 % (24.0-44.0); MEAN CORPUSCULAR HGB CONC 30.3 g/dl (32.0-36.5); MEAN CORPUSCULAR VOLUME 98.9 fl (80.0-96.0); MONO # 0.8 10^3/uL (0.0-0.8); MONO % 9.5 % (2.0-8.0); NEUTROPHILS # 4.9 10^3/uL (1.5-8.5); NEUTROPHILS % 60.6 % (36.0-66.0); PLATELET COUNT, AUTOMATED 248 10^3/uL (150-450); RED BLOOD COUNT 3.67 10^6/uL (4.00-5.40); WHITE BLOOD COUNT 8.1 10^3/uL (4.0-10.0)
[2021-01-07 15:37] LABS: ALBUMIN 3.3 GM/DL (3.2-5.2); ALT/SGPT 62 U/L (12-78); BILIRUBIN,TOTAL 0.4 MG/DL (0.2-1.0); BLOOD UREA NITROGEN 20 MG/DL (7-18); C REACTIVE PROTEIN QUANTITATIV 5.46 MG/DL (0.00-0.30); CALCIUM LEVEL 9.9 MG/DL (8.8-10.2); CARBON DIOXIDE LEVEL 28 MEQ/L (21-32); CHLORIDE LEVEL 111 MEQ/L (98-107); CHOLESTEROL LEVEL 153 MG/DL (<200); CREATININE FOR GFR 0.87 MG/DL (0.55-1.30); FERRITIN 469 NG/ML (8-252); FREE T4 0.86 NG/DL (0.76-1.46); GLOMERULAR FILTRATION RATE > 60.0 (>32); GLUCOSE, FASTING 114 MG/DL (70-100); HDL CHOLESTEROL 50 MG/DL (>40); IRON (FE) 31 UG/DL (50-170); LDL CHOLESTEROL 62 MG/DL (<100); NON-HDL-C 103 MG/DL; NT-PRO BNP 491 PG/ML (<450); POTASSIUM SERUM 4.7 MEQ/L (3.5-5.1); SODIUM LEVEL 141 MEQ/L (136-145); THYROID STIMULATING HORMONE 0.529 uIU/ML (0.358-3.740); TOTAL IRON BINDING CAPACITY 258 UG/DL (250-450); TOTAL PROTEIN 6.6 GM/DL (6.4-8.2); TRIGLYCERIDES LEVEL 203 MG/DL (<150); VITAMIN B12 LEVEL 610 PG/ML (247-911)
[2021-01-07 15:52] LABS: ERYTHROCYTE SEDIMENTATION RATE 49 mm/hr (0-30)
[2021-01-07 19:07] LABS: HEMATOCRIT 36.3 % (36.0-47.0)
[2021-01-13 17:09] LABS: CHROMOGRANIN A 204.5 ng/mL (0.0-101.8)
== END ==
LOC: M PLAIMG 13:38
PROVIDERS: ATTEND Family Medicine
DX: M43.26 Fusion of spine, lumbar region (principal); M48.07 Spinal stenosis, lumbosacral region; M25.78 Osteophyte, vertebrae; R27.0 Ataxia, unspecified; R73.01 Impaired fasting glucose; E53.8 Deficiency of other specified B group vitamins; D50.9 Iron deficiency anemia, unspecified; I10 Essential (primary) hypertension; K52.9 Noninfective gastroenteritis and colitis, unspecified
CPT/HCPCS: 36415; 72110; 80053; 80061; 81479; 82607; 82728; 82747; 83520; 83550; 83735; 83880; 84439; 84443; 85025; 85652; 86140; 86316; 90682; G0008

== ENCOUNTER 2021-03-25 20:29 | Emergency (ER) | payer MEDICARE ==
[~2021-03-25] VITALS: Ht 157.5 cm; Wt 67.7 kg
[2021-03-25 20:30] VITALS: BP 126/58
[2021-03-25] MEDS ORDERED: CYCL5TAB PO (20:41)
[2021-03-25] MEDS ORDERED: GABA-1171 PO (20:41)
== END 2021-03-25 23:12 | disposition left against medical advice (07) ==
LOC: M ED 20:29
DX: Z53.29 Procedure and treatment not carried out because of patient's decision for other reasons (principal)

== ENCOUNTER → 2021-04-28 | Outpatient (CLI) | payer MEDICARE ==
[~2021-04-28] MED LIST changes: +POTA-149 PO; -POTA10TA16 PO
== END ==
LOC: M PLALAB 15:08
PROVIDERS: ATTEND Nurse Practitioner Family
DX: R19.7 Diarrhea, unspecified (principal)

== ENCOUNTER 2021-06-15 09:32 | Outpatient (CLI) | payer MEDICARE ==
[~2021-06-15] VITALS: Ht 157.5 cm; Wt 54.0 kg
[~2021-06-15 09:32] MED LIST changes: -D31000TA2 PO; +VITA100093 PO; +ZOLEDRONIC ACID 5 MG in IV 1 EA IV ONE
[2021-06-15 10:11] LABS: BASO % 0.7 % (0.0-1.0); EOS # 0.2 10^3/uL (0.0-0.5); HEMATOCRIT 36.9 % (36.0-47.0); HEMOGLOBIN 11.3 g/dl (12.0-15.5); LYMPH # 1.9 10^3/uL (1.5-5.0); LYMPH % 30.9 % (24.0-44.0); MEAN CORPUSCULAR HEMOGLOBIN 28.4 pg (27.0-33.0); MEAN CORPUSCULAR HGB CONC 30.6 g/dl (32.0-36.5); MEAN CORPUSCULAR VOLUME 92.7 fl (80.0-96.0); MONO # 0.4 10^3/uL (0.0-0.8); MONO % 6.8 % (2.0-8.0); NEUTROPHILS # 3.4 10^3/uL (1.5-8.5); NEUTROPHILS % 57.4 % (36.0-66.0); PLATELET COUNT, AUTOMATED 281 10^3/uL (150-450); RED BLOOD COUNT 3.98 10^6/uL (4.00-5.40)
[2021-06-15 10:14] VITALS: BP 152/80
[2021-06-15] MEDS ORDERED: ZOLEDRONIC ACID 5 MG in IV 1 EA IV ONE (10:30)
[2021-06-15 10:43] VITALS: BP 167/73
[2021-06-15 10:57] LABS: ERYTHROCYTE SEDIMENTATION RATE 52 mm/hr (0-30)
[2021-06-15 11:10] LABS: ALBUMIN 3.7 GM/DL (3.2-5.2); ALT/SGPT 30 U/L (12-78); BILIRUBIN,TOTAL 0.3 MG/DL (0.2-1.0); BLOOD UREA NITROGEN 16 MG/DL (7-18); C REACTIVE PROTEIN QUANTITATIV 0.53 MG/DL (0.00-0.30); CALCIUM LEVEL 9.8 MG/DL (8.8-10.2); CARBON DIOXIDE LEVEL 25 MEQ/L (21-32); CHLORIDE LEVEL 111 MEQ/L (98-107); GLOMERULAR FILTRATION RATE > 60.0 (>32); GLUCOSE, FASTING 106 MG/DL (70-100); MAGNESIUM LEVEL 2.2 MG/DL (1.8-2.4); POTASSIUM SERUM 4.1 MEQ/L (3.5-5.1); SODIUM LEVEL 140 MEQ/L (136-145)
[2021-06-15 12:18] LABS: HEMOGLOBIN A1c 5.8 %
== END 2021-06-15 10:45 | disposition home or self-care (01) ==
LOC: M INFU 09:32
PROVIDERS: ATTEND Family Medicine
DX: M81.0 Age-related osteoporosis without current pathological fracture (principal); I50.30 Unspecified diastolic (congestive) heart failure; K52.9 Noninfective gastroenteritis and colitis, unspecified; Z88.0 Allergy status to penicillin; Z88.6 Allergy status to analgesic agent; Z88.8 Allergy status to other drugs, medicaments and biological substances
CPT/HCPCS: 36592; 80053; 83036; 83735; 85025; 85046; 85652; 86140; 87505; 96365; J3489

== ENCOUNTER → 2021-07-13 | Outpatient (CLI) | payer MEDICARE ==
[~2021-07-13] MED LIST changes: +CHOL4POW15 PO; -CHOL4POW4 PO; -ZOLEDRONIC ACID 5 MG in IV 1 EA IV ONE
[2021-07-13 13:58] LABS: BASO % 0.6 % (0.0-1.0); EOS # 0.2 10^3/uL (0.0-0.5); EOS % 2.6 % (0.0-3.0); HEMATOCRIT 33.8 % (36.0-47.0); HEMOGLOBIN 10.1 g/dl (12.0-15.5); LYMPH # 2.3 10^3/uL (1.5-5.0); LYMPH % 32.9 % (24.0-44.0); MEAN CORPUSCULAR HEMOGLOBIN 28.6 pg (27.0-33.0); MEAN CORPUSCULAR HGB CONC 29.9 g/dl (32.0-36.5); MEAN CORPUSCULAR VOLUME 95.8 fl (80.0-96.0); MONO # 0.5 10^3/uL (0.0-0.8); MONO % 7.5 % (2.0-8.0); NEUTROPHILS # 3.9 10^3/uL (1.5-8.5); NEUTROPHILS % 56.1 % (36.0-66.0); PLATELET COUNT, AUTOMATED 269 10^3/uL (150-450); RED BLOOD COUNT 3.53 10^6/uL (4.00-5.40); WHITE BLOOD COUNT 6.9 10^3/uL (4.0-10.0)
[2021-07-13 14:33] LABS: ALBUMIN 3.6 GM/DL (3.2-5.2); BILIRUBIN,TOTAL 0.4 MG/DL (0.2-1.0); C REACTIVE PROTEIN QUANTITATIV 0.3 MG/DL (0.00-0.30); CALCIUM LEVEL 9.5 MG/DL (8.8-10.2); CREATININE FOR GFR 1.12 MG/DL (0.55-1.30); ERYTHROCYTE SEDIMENTATION RATE 47 mm/hr (0-30); GLOMERULAR FILTRATION RATE 49.3 (>32); POTASSIUM SERUM 4.6 MEQ/L (3.5-5.1); TOTAL PROTEIN 7.2 GM/DL (6.4-8.2)
== END ==
LOC: M LAB 12:55
PROVIDERS: ATTEND Physician Assistant
DX: A04.71 Enterocolitis due to Clostridium difficile, recurrent (principal); R19.7 Diarrhea, unspecified

== ENCOUNTER → 2021-08-06 | Outpatient (REF) | payer MEDICARE ==
[~2021-08-06] MED LIST changes: +EXCETAB32 PO; -EXCETAB33 PO
== END ==
LOC: M LAB REF 09:33
PROVIDERS: ATTEND Physician Assistant
DX: R05.9 Cough, unspecified (principal)

== ENCOUNTER → 2021-08-07 | Outpatient (CLI) | payer MEDICARE | LOC: M WUC 11:53 | PROVIDERS: ATTEND Physician Assistant | DX: R05.9 Cough, unspecified (principal) ==

== ENCOUNTER → 2021-09-03 | Outpatient (CLI) | payer MEDICARE | LOC: M WHC 15:31 | PROVIDERS: ATTEND Family Medicine | DX: Z12.31 Encounter for screening mammogram for malignant neoplasm of breast (principal) ==

== ENCOUNTER → 2021-11-18 | Outpatient (CLI) | payer MEDICARE ==
[~2021-11-18] MED LIST changes: -CHOL4POW15 PO; +CHOL4POW26 PO
[2021-11-18 17:00] LABS: BASO # 0.1 10^3/uL (0.0-0.2); BASO % 0.7 % (0.0-1.0); EOS # 0.5 10^3/uL (0.0-0.5); HEMATOCRIT 36.4 % (36.0-47.0); HEMOGLOBIN 10.7 g/dl (12.0-15.5); LYMPH # 2.5 10^3/uL (1.5-5.0); LYMPH % 32.6 % (24.0-44.0); MEAN CORPUSCULAR HEMOGLOBIN 29.1 pg (27.0-33.0); MEAN CORPUSCULAR HGB CONC 29.4 g/dl (32.0-36.5); MEAN CORPUSCULAR VOLUME 98.9 fl (80.0-96.0); MONO # 0.7 10^3/uL (0.0-0.8); MONO % 8.9 % (2.0-8.0); NEUTROPHILS # 3.9 10^3/uL (1.5-8.5); NEUTROPHILS % 51.4 % (36.0-66.0); PLATELET COUNT, AUTOMATED 230 10^3/uL (150-450); RED BLOOD COUNT 3.68 10^6/uL (4.00-5.40); WHITE BLOOD COUNT 7.6 10^3/uL (4.0-10.0)
[2021-11-18 17:37] LABS: FREE T4 0.85 NG/DL (0.76-1.46); THYROID STIMULATING HORMONE 1.39 uIU/ML (0.358-3.740)
[2021-11-18 17:54] LABS: HEMOGLOBIN A1c 5.9 %
[2021-11-18 18:40] LABS: CHOLESTEROL RISK RATIO 4.025 (<5)
== END ==
LOC: M LAB 16:06
PROVIDERS: ATTEND Family Medicine
DX: R73.01 Impaired fasting glucose (principal); E07.9 Disorder of thyroid, unspecified; D50.9 Iron deficiency anemia, unspecified; E78.00 Pure hypercholesterolemia, unspecified

== ENCOUNTER → 2021-11-27 | Outpatient (CLI) | payer MEDICARE ==
[~2021-11-27] MED LIST changes: +ALEN70TA87 PO; -FOSA70TA PO
== END ==
LOC: M PLALAB 12:07 → M PLAIMG 12:07
PROVIDERS: ATTEND Physician Assistant Medical
DX: M47.816 Spondylosis 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y or radiculopathy, lumbar region (principal)

== ENCOUNTER → 2021-12-02 | Outpatient (REF) | payer MEDICARE | LOC: M LAB REF 18:03 | PROVIDERS: ATTEND Family Medicine | DX: K52.9 Noninfective gastroenteritis and colitis, unspecified (principal); R10.9 Unspecified abdominal pain ==

== ENCOUNTER → 2021-12-25 | Outpatient (CLI) | payer MEDICARE | LOC: M RAD 13:57 | PROVIDERS: ATTEND Physician Assistant Medical | DX: R60.0 Localized edema (principal) ==

== ENCOUNTER → 2022-04-16 | Outpatient (CLI) | payer MEDICARE ==
[~2022-04-16] MED LIST changes: +DIPH-435 PO; -DIPH25CA32 PO
[2022-04-16 19:12] LABS: BASO # 0.1 10^3/uL (0.0-0.2); BASO % 0.9 % (0.0-1.0); EOS # 0.4 10^3/uL (0.0-0.5); EOS % 5.3 % (0.0-3.0); HEMATOCRIT 29.1 % (36.0-47.0); HEMOGLOBIN 8.3 g/dl (12.0-15.5); LYMPH # 2.1 10^3/uL (1.5-5.0); LYMPH % 30.3 % (24.0-44.0); MEAN CORPUSCULAR HEMOGLOBIN 28.2 pg (27.0-33.0); MEAN CORPUSCULAR HGB CONC 28.5 g/dl (32.0-36.5); MONO # 0.5 10^3/uL (0.0-0.8); MONO % 7.5 % (2.0-8.0); NEUTROPHILS # 3.8 10^3/uL (1.5-8.5); NEUTROPHILS % 55.7 % (36.0-66.0); PLATELET COUNT, AUTOMATED 275 10^3/uL (150-450); RED BLOOD COUNT 2.94 10^6/uL (4.00-5.40); WHITE BLOOD COUNT 6.8 10^3/uL (4.0-10.0)
[2022-04-16 19:26] LABS: ALBUMIN 3.5 G/DL (3.2-5.2); ALKALINE PHOSPHATASE 53 U/L (46-116); ALT/SGPT 21 U/L (7.0-40); AST/SGOT 27 U/L (<34); BILIRUBIN,TOTAL 0.2 MG/DL (0.3-1.2); BLOOD UREA NITROGEN 17 MG/DL (9-23); CALCIUM LEVEL 9.5 MG/DL (8.3-10.6); CARBON DIOXIDE LEVEL 27 MMOL/L (20-31); CHLORIDE LEVEL 107 MMOL/L (98-107); CREATININE FOR GFR 0.83 MG/DL (0.55-1.30); GLOMERULAR FILTRATION RATE > 60.0 (>32); GLUCOSE, FASTING 101 MG/DL (74-106); POTASSIUM SERUM 4.7 MMOL/L (3.5-5.1); SODIUM LEVEL 141 MMOL/L (136-145); TOTAL PROTEIN 5.9 G/DL (5.7-8.2)
[2022-04-16 19:28] LABS: MAGNESIUM LEVEL 1.8 MG/DL (1.8-2.4)
[2022-04-16 19:29] LABS: FERRITIN 37.2 NG/ML (7.3-270.7)
[2022-04-16 19:51] LABS: HEMOGLOBIN A1c 5.2 % (4.0-6.0)
[2022-04-20 19:07] LABS: ALBUMIN 3.7 g/dL (2.9-4.4); ALPHA-1-GLOBULINS 0.2 g/dL (0.0-0.4); ALPHA-2-GLOBULINS 0.8 g/dL (0.4-1.0); BETA-1-GLOBULINS 0.9 g/dL (0.7-1.3); GAMMA GLOBULINS 0.5 g/dL (0.4-1.8); TOTAL PROTEIN ELECTROPHORESIS 6.1 g/dL (6.0-8.5)
== END ==
LOC: M PLALAB 14:42
PROVIDERS: ATTEND Family Medicine
DX: D50.9 Iron deficiency anemia, unspecified (principal)

== ENCOUNTER → 2022-04-22 | Outpatient (CLI) | payer MEDICARE ==
[2022-04-22 15:40] LABS: BASO # 0.1 10^3/uL (0.0-0.2); EOS # 0.5 10^3/uL (0.0-0.5); EOS % 6.8 % (0.0-3.0); HEMATOCRIT 29.2 % (36.0-47.0); HEMOGLOBIN 8.4 g/dl (12.0-15.5); LYMPH # 3.4 10^3/uL (1.5-5.0); LYMPH % 46.3 % (24.0-44.0); MEAN CORPUSCULAR HEMOGLOBIN 28.6 pg (27.0-33.0); MEAN CORPUSCULAR HGB CONC 28.8 g/dl (32.0-36.5); MEAN CORPUSCULAR VOLUME 99.3 fl (80.0-96.0); MONO # 0.6 10^3/uL (0.0-0.8); MONO % 7.6 % (2.0-8.0); NEUTROPHILS # 2.8 10^3/uL (1.5-8.5); PLATELET COUNT, AUTOMATED 311 10^3/uL (150-450); RED BLOOD COUNT 2.94 10^6/uL (4.00-5.40); WHITE BLOOD COUNT 7.3 10^3/uL (4.0-10.0)
[2022-04-22 16:10] LABS: ALBUMIN 3.4 G/DL (3.2-5.2); BILIRUBIN,TOTAL 0.2 MG/DL (0.3-1.2); CALCIUM LEVEL 9.5 MG/DL (8.3-10.6); CREATININE FOR GFR 0.96 MG/DL (0.55-1.30); GLOMERULAR FILTRATION RATE 58.8 (>32); POTASSIUM SERUM 4.9 MMOL/L (3.5-5.1); TOTAL PROTEIN 6.1 G/DL (5.7-8.2)
== END ==
LOC: M PLALAB 14:15
PROVIDERS: ATTEND Family Medicine
DX: D50.9 Iron deficiency anemia, unspecified (principal)

== ENCOUNTER 2022-05-05 11:39 | Outpatient (CLI) | payer MEDICARE ==
[~2022-05-05] VITALS: Ht 157.5 cm; Wt 79.5 kg
[~2022-05-05 11:39] MED LIST changes: +ALBUTEROL SULFATE 2.5MG/0.5ML INH NEB SOLN INH PRN; +EPINEPHrine INJ 1 MG/ML 1ML AMP IM PRN; +diphenhydrAMINE 50MG/ML VIAL IV PRN; +methylPREDNISolone 125MG 2ML VIAL IV PRN
[2022-05-05 12:30] VITALS: BP 160/71
[2022-05-05] MEDS ORDERED: FERRIC CARBOXYMALTOSE INJ 750 MG in NS 250 ML (>50kg) IV ONE ×3 (12:30)
[2022-05-05] MEDS ORDERED: NS 1,000 ML IV SCH (12:30)
[2022-05-05 15:00] VITALS: BP 160/84
== END 2022-05-05 15:00 | disposition home or self-care (01) ==
LOC: M INFU 11:39
PROVIDERS: ATTEND Family Medicine
DX: D50.9 Iron deficiency anemia, unspecified (principal); Z88.0 Allergy status to penicillin; Z88.8 Allergy status to other drugs, medicaments and biological substances
CPT/HCPCS: 96365; 96366; J1439

== ENCOUNTER 2022-06-16 15:36 | Outpatient (CLI) | payer MEDICARE ==
[~2022-06-16 15:36] MED LIST changes: -ALBUTEROL SULFATE 2.5MG/0.5ML INH NEB SOLN INH PRN; -EPINEPHrine INJ 1 MG/ML 1ML AMP IM PRN; +ZOLEDRONIC ACID 5 MG in IV 1 EA IV ONE; -diphenhydrAMINE 50MG/ML VIAL IV PRN; -methylPREDNISolone 125MG 2ML VIAL IV PRN
[2022-06-16 15:50] VITALS: BP 135/64
[2022-06-16 16:50] VITALS: BP 141/69
== END 2022-06-16 16:50 | disposition home or self-care (01) ==
LOC: M INFU 15:36
PROVIDERS: ATTEND Family Medicine
DX: M81.0 Age-related osteoporosis without current pathological fracture (principal); Z88.0 Allergy status to penicillin; Z88.1 Allergy status to other antibiotic agents; Z88.8 Allergy status to other drugs, medicaments and biological substances
CPT/HCPCS: 96365; J3489

== ENCOUNTER → 2022-07-19 | Outpatient (REF) | payer MEDICARE ==
[~2022-07-19] MED LIST changes: +FLUT50SP17; -FLUTISP; -ZOLEDRONIC ACID 5 MG in IV 1 EA IV ONE
== END ==
LOC: M SFHCPLAZ 09:15
PROVIDERS: ATTEND Family Medicine
DX: D50.9 Iron deficiency anemia, unspecified (principal); I10 Essential (primary) hypertension

== ENCOUNTER → 2022-07-21 | Outpatient (CLI) | payer MEDICARE ==
[2022-07-21 18:05] LABS: BASO % 0.6 % (0.0-1.0); EOS # 0.1 10^3/uL (0.0-0.5); EOS % 2.3 % (0.0-3.0); HEMATOCRIT 31.4 % (36.0-47.0); LYMPH % 19.1 % (24.0-44.0); MEAN CORPUSCULAR HEMOGLOBIN 28.5 pg (27.0-33.0); MEAN CORPUSCULAR HGB CONC 28.7 g/dl (32.0-36.5); MEAN CORPUSCULAR VOLUME 99.4 fl (80.0-96.0); MONO # 0.3 10^3/uL (0.0-0.8); MONO % 5.7 % (2.0-8.0); NEUTROPHILS # 3.8 10^3/uL (1.5-8.5); NEUTROPHILS % 71.9 % (36.0-66.0); PLATELET COUNT, AUTOMATED 273 10^3/uL (150-450); RED BLOOD COUNT 3.16 10^6/uL (4.00-5.40); WHITE BLOOD COUNT 5.2 10^3/uL (4.0-10.0)
[2022-07-21 18:38] LABS: ALBUMIN 3.5 G/DL (3.2-5.2); BILIRUBIN,TOTAL 0.2 MG/DL (0.3-1.2); CALCIUM LEVEL 9.4 MG/DL (8.3-10.6); CREATININE FOR GFR 1.18 MG/DL (0.55-1.30); FERRITIN 58.6 NG/ML (7.3-270.7); GLOMERULAR FILTRATION RATE 46.3 (>32); POTASSIUM SERUM 4.3 MMOL/L (3.5-5.1); TOTAL PROTEIN 6.1 G/DL (5.7-8.2)
== END ==
LOC: M PLALAB 14:50
PROVIDERS: ATTEND Family Medicine
DX: D50.9 Iron deficiency anemia, unspecified (principal)

== ENCOUNTER 2022-08-04 11:35 | Outpatient (CLI) | payer MEDICARE ==
[~2022-08-04] VITALS: Ht 160 cm; Wt 71.4 kg
[~2022-08-04 11:35] MED LIST changes: +ALBUTEROL SULFATE 2.5MG/0.5ML INH NEB SOLN INH PRN; +EPINEPHrine INJ 1 MG/ML 1ML AMP IM PRN; +FERRIC CARBOXYMALTOSE INJ 750 MG in NS 250 ML (>50kg) IV ONE; +NS 1,000 ML IV SCH; +diphenhydrAMINE 50MG/ML VIAL IV PRN; +methylPREDNISolone 125MG 2ML VIAL IV PRN
[2022-08-04 11:57] VITALS: BP 150/68
[2022-08-04 13:31] VITALS: BP 154/78
== END 2022-08-04 13:30 | disposition home or self-care (01) ==
LOC: M INFU 11:35
PROVIDERS: ATTEND Family Medicine
DX: D50.9 Iron deficiency anemia, unspecified (principal); Z88.0 Allergy status to penicillin; Z88.1 Allergy status to other antibiotic agents; Z88.8 Allergy status to other drugs, medicaments and biological substances
CPT/HCPCS: 96365; J1439

== ENCOUNTER 2022-09-13 16:50 | Emergency (ER) | payer MEDICARE ==
[~2022-09-13] VITALS: Ht 157.5 cm; Wt 65.9 kg
[~2022-09-13 16:50] MED LIST changes: -ALBUTEROL SULFATE 2.5MG/0.5ML INH NEB SOLN INH PRN; +COLE625T17 PO; +D 1010004 PO; -EPINEPHrine INJ 1 MG/ML 1ML AMP IM PRN; +FAMO20TA PO; -FERRIC CARBOXYMALTOSE INJ 750 MG in NS 250 ML (>50kg) IV ONE; +MIRT1TAB17 PO; -NS 1,000 ML IV SCH; +OCUVTAB4 PO; +OMEP40CA5 PO; +POTA-165 PO; +TORS10TA3 PO; -diphenhydrAMINE 50MG/ML VIAL IV PRN; -methylPREDNISolone 125MG 2ML VIAL IV PRN
[2022-09-13 16:51] VITALS: TEMP 97
[2022-09-13 18:43] LABS: HEMATOCRIT 35.2 % (36.0-47.0); HEMOGLOBIN 10.2 g/dl (12.0-15.5); MEAN CORPUSCULAR HEMOGLOBIN 29.1 pg (27.0-33.0); MEAN CORPUSCULAR VOLUME 100.6 fl (80.0-96.0); PLATELET COUNT, AUTOMATED 262 10^3/uL (150-450); WHITE BLOOD COUNT 6.5 10^3/uL (4.0-10.0)
[2022-09-13 18:57] LABS: INR 1.09; PROTHROMBIN TIME 14.3 SECONDS (12.5-14.5)
[2022-09-13 18:58] LABS: PARTIAL THROMBOPLASTIN TIME 35.6 SECONDS (24.8-34.2)
[2022-09-13 19:09] LABS: ALBUMIN 3.8 G/DL (3.2-5.2); BILIRUBIN,TOTAL 0.3 MG/DL (0.3-1.2); CALCIUM LEVEL 9.6 MG/DL (8.3-10.6); CREATININE FOR GFR 1.25 MG/DL (0.55-1.30); GLOMERULAR FILTRATION RATE 43.4 (>32); POTASSIUM SERUM 4.8 MMOL/L (3.5-5.1); TOTAL PROTEIN 6.2 G/DL (5.7-8.2)
[2022-09-13 21:33] LABS: MAGNESIUM LEVEL 1.9 MG/DL (1.8-2.4)
[2022-09-13 21:35] LABS: PERCENT SATURATION 8.6 % (13.2-45.0)
[2022-09-13 21:47] LABS: CK-MB VALUE MASS 1.3 NG/ML (<3.6)
[2022-09-13 21:48] LABS: MB/CK RELATIVE INDEX 1.96 (< OR =4)
[2022-09-13 21:55] LABS: FREE T4 0.93 NG/DL (0.89-1.76); THYROID STIMULATING HORMONE 0.893 uIU/ML (0.55-4.78)
[2022-09-14 01:15] VITALS: O2SAT 90
[2022-09-14 01:38] VITALS: BP 169/90
== END 2022-09-14 02:48 | disposition home or self-care (01) ==
LOC: M ED 16:50
DX: R53.1 Weakness (principal); D50.9 Iron deficiency anemia, unspecified; M54.9 Dorsalgia, unspecified; I10 Essential (primary) hypertension; K21.9 Gastro-esophageal reflux disease without esophagitis; E78.5 Hyperlipidemia, unspecified; F32.A Depression, unspecified; Z86.73 Personal history of transient ischemic attack (TIA), and cerebral infarction without residual deficits; Z88.0 Allergy status to penicillin; Z88.6 Allergy status to analgesic agent; Z88.8 Allergy status to other drugs, medicaments and biological substances; Z79.899 Other long term (current) drug therapy

== ENCOUNTER 2022-09-18 11:44 | Inpatient (IN) | payer MEDICARE ==
[~2022-09-18] VITALS: Ht 160 cm; Wt 72.0 kg
[2022-09-18] MEDS ORDERED: NS 2,110 ML in IV 1 EA IV ONE (12:10)
[2022-09-18 12:23] LABS: BASO # 0.1 10^3/uL (0.0-0.2); BASO % 0.5 % (0.0-1.0); EOS # 0.3 10^3/uL (0.0-0.5); EOS % 2.7 % (0.0-3.0); HEMOGLOBIN 9.4 g/dl (12.0-15.5); LYMPH # 2.3 10^3/uL (1.5-5.0); LYMPH % 22.3 % (24.0-44.0); MEAN CORPUSCULAR HGB CONC 29.4 g/dl (32.0-36.5); MEAN CORPUSCULAR VOLUME 102.2 fl (80.0-96.0); MONO # 0.5 10^3/uL (0.0-0.8); MONO % 4.7 % (2.0-8.0); NEUTROPHILS # 7.2 10^3/uL (1.5-8.5); NEUTROPHILS % 69.1 % (36.0-66.0); PLATELET COUNT, AUTOMATED 246 10^3/uL (150-450); RED BLOOD COUNT 3.13 10^6/uL (4.00-5.40); WHITE BLOOD COUNT 10.4 10^3/uL (4.0-10.0)
[2022-09-18 12:37] LABS: INR 1.24; PARTIAL THROMBOPLASTIN TIME 33.4 SECONDS (24.8-34.2); PROTHROMBIN TIME 15.9 SECONDS (12.5-14.5)
[2022-09-18 12:46] LABS: CALCIUM LEVEL 8.8 MG/DL (8.3-10.6); CREATININE FOR GFR 1.63 MG/DL (0.55-1.30); GLOMERULAR FILTRATION RATE 31.9 (>32); MB/CK RELATIVE INDEX 2.32 (< OR =4); POTASSIUM SERUM 4.3 MMOL/L (3.5-5.1)
[2022-09-18 12:49] LABS: THYROID STIMULATING HORMONE 2.259 uIU/ML (0.55-4.78)
[2022-09-18 12:57] LABS: RSV AMPLIFICATION NEGATIVE (NEGATIVE)
[2022-09-18] MEDS ORDERED: ISOVUE-370 76% 100ML VIAL As Ordered ONE (13:28)
[2022-09-18] MEDS ORDERED: ACETAMINOPHEN TAB 650MG DOSE (2X325MG) PO ONE (13:40)
[2022-09-18 16:00] LABS: ALBUMIN 3.5 G/DL (3.2-5.2); BILIRUBIN,DIRECT 0.1 MG/DL (<0.4); BILIRUBIN,TOTAL 0.3 MG/DL (0.3-1.2); TOTAL PROTEIN 5.8 G/DL (5.7-8.2)
[2022-09-18] MEDS: MORPHINE 2 MG/ML 1ML VIAL IV PRN ×2 (16:11→17:53)
[2022-09-18] MEDS ORDERED: PARO20TA3 PO (17:22)
[2022-09-18] MEDS ORDERED: HOME MED LIST COMPLETE! XX SCH (17:25)
[2022-09-18] MEDS ORDERED: HEPARIN SOD (PORCINE) 5000UNITS/ML 1ML VIAL/SYRINGE IV PRN (17:50)
[2022-09-18] MEDS: PANTOPRAZOLE 40MG VIAL IV SCH (17:58)
[2022-09-18] MEDS: POTASSIUM CHLORIDE 10MEQ SR TABLET PO SCH (17:59)
[2022-09-18] MEDS: HEPARIN DRIP 25,000 UNITS in IV 1 EA IV SCH (18:59)
[2022-09-18 19:12] LABS: HEMATOCRIT 30.5 % (36.0-47.0); HEMOGLOBIN 9.1 g/dl (12.0-15.5); MEAN CORPUSCULAR HEMOGLOBIN 29.9 pg (27.0-33.0); MEAN CORPUSCULAR HGB CONC 29.8 g/dl (32.0-36.5); MEAN CORPUSCULAR VOLUME 100.3 fl (80.0-96.0); PLATELET COUNT, AUTOMATED 211 10^3/uL (150-450); RED BLOOD COUNT 3.04 10^6/uL (4.00-5.40); WHITE BLOOD COUNT 7.7 10^3/uL (4.0-10.0)
[2022-09-18 19:31] LABS: CK-MB VALUE MASS < 1.0 NG/ML (<3.6)
[2022-09-18 19:32] LABS: CPK CREATINE PHOSPHOKINASE 43 U/L (34-145); MB/CK RELATIVE INDEX 2.32 (< OR =4)
[2022-09-18 20:37] VITALS: BP 132/58; TEMP 97.2; O2SAT 94
[2022-09-18] MEDS: MIRTAZAPINE 15 MG TAB PO SCH (21:03)
[2022-09-18 23:18] VITALS: BP 132/60; TEMP 97.5; O2SAT 93
[2022-09-19] MEDS: ANEXSIA, NORCO 7.5MG/325MG TABLET(HYDROCODONE/APAP) PO PRN ×3 (01:08→20:42)
[2022-09-19 02:27] LABS: HEMATOCRIT 30.8 % (36.0-47.0); HEMOGLOBIN 9.1 g/dl (12.0-15.5)
[2022-09-19 02:40] LABS: INR 1.26; PROTHROMBIN TIME 16.1 SECONDS (12.5-14.5)
[2022-09-19 03:17] VITALS: BP 111/55; TEMP 97; O2SAT 93
[2022-09-19 05:14] LABS: MEAN CORPUSCULAR HEMOGLOBIN 29.9 pg (27.0-33.0); MEAN CORPUSCULAR VOLUME 99.7 fl (80.0-96.0); PLATELET COUNT, AUTOMATED 202 10^3/uL (150-450); RED BLOOD COUNT 3.01 10^6/uL (4.00-5.40); WHITE BLOOD COUNT 8.7 10^3/uL (4.0-10.0)
[2022-09-19 05:42] LABS: ALBUMIN 3.4 G/DL (3.2-5.2); BILIRUBIN,TOTAL 0.2 MG/DL (0.3-1.2); CALCIUM LEVEL 8.3 MG/DL (8.3-10.6); CREATININE FOR GFR 1.57 MG/DL (0.55-1.30); GLOMERULAR FILTRATION RATE 33.3 (>32); MAGNESIUM LEVEL 1.8 MG/DL (1.8-2.4); POTASSIUM SERUM 4.6 MMOL/L (3.5-5.1); TOTAL PROTEIN 5.8 G/DL (5.7-8.2)
[2022-09-19 07:40] VITALS: BP 119/56; TEMP 96.3; O2SAT 93
[2022-09-19] MEDS: ROSUVASTATIN 10 MG TAB (CRESTOR) PO SCH (08:49)
[2022-09-19] MEDS: PARoxetine 20MG TABLET PO SCH (08:50)
[2022-09-19] MEDS: MULTIVITAMINS/MINERALS THERAP 1 TAB PO SCH (08:50)
[2022-09-19] MEDS: POTASSIUM CHLORIDE 10MEQ SR TABLET PO SCH ×2 (08:50→17:10)
[2022-09-19] MEDS: TORSEMIDE 10 MG TABLET PO SCH (08:50)
[2022-09-19] MEDS: bisoproloL fumarate 10 MG TAB PO SCH (08:51)
[2022-09-19 11:15] LABS: HEMATOCRIT 34.5 % (36.0-47.0); HEMOGLOBIN 9.5 g/dl (12.0-15.5)
[2022-09-19 11:26] LABS: INR 1.16
[2022-09-19 11:28] LABS: PARTIAL THROMBOPLASTIN TIME 64.2 SECONDS (24.8-34.2)
[2022-09-19 13:08] VITALS: BP 116/54; TEMP 97.7; O2SAT 95
[2022-09-19 16:35] VITALS: BP 103/53; TEMP 97.5; O2SAT 96
[2022-09-19] MEDS: PANTOPRAZOLE 40MG VIAL IV SCH (17:10)
[2022-09-19 18:25] LABS: INR 1.14; PROTHROMBIN TIME 14.8 SECONDS (12.5-14.5)
[2022-09-19 18:27] LABS: PARTIAL THROMBOPLASTIN TIME 88.2 SECONDS (24.8-34.2)
[2022-09-19 20:00] VITALS: BP 120/73; TEMP 96.2; O2SAT 95
[2022-09-19] MEDS: MIRTAZAPINE 15 MG TAB PO SCH (20:42)
[2022-09-19] MEDS: HEPARIN DRIP 25,000 UNITS in IV 1 EA IV SCH (23:31)
[2022-09-19] MEDS: RAMELTEON 8 MG TAB (ROZEREM) PO PRN (23:33)
[2022-09-20] VITALS (7 sets, daily range): BP systolic 109–135; BP diastolic 56–61; TEMP 96.3–98; O2SAT 91–97
[2022-09-20 00:32] LABS: INR 1.12; PROTHROMBIN TIME 14.6 SECONDS (12.5-14.5)
[2022-09-20 00:34] LABS: PARTIAL THROMBOPLASTIN TIME 99.2 SECONDS (24.8-34.2)
[2022-09-20 00:59] LABS: HEMATOCRIT 29.3 % (36.0-47.0); HEMOGLOBIN 8.8 g/dl (12.0-15.5)
[2022-09-20 06:24] LABS: BASO # 0.1 10^3/uL (0.0-0.2); BASO % 0.8 % (0.0-1.0); EOS # 0.3 10^3/uL (0.0-0.5); EOS % 3.9 % (0.0-3.0); HEMATOCRIT 31.1 % (36.0-47.0); HEMOGLOBIN 9.1 g/dl (12.0-15.5); LYMPH % 23.3 % (24.0-44.0); MEAN CORPUSCULAR HEMOGLOBIN 29.4 pg (27.0-33.0); MEAN CORPUSCULAR HGB CONC 29.3 g/dl (32.0-36.5); MEAN CORPUSCULAR VOLUME 100.3 fl (80.0-96.0); MONO # 0.9 10^3/uL (0.0-0.8); MONO % 9.9 % (2.0-8.0); NEUTROPHILS # 5.4 10^3/uL (1.5-8.5); NEUTROPHILS % 61.6 % (36.0-66.0); PLATELET COUNT, AUTOMATED 194 10^3/uL (150-450); WHITE BLOOD COUNT 8.7 10^3/uL (4.0-10.0)
[2022-09-20 06:38] LABS: INR 1.1; PROTHROMBIN TIME 14.4 SECONDS (12.5-14.5)
[2022-09-20 06:41] LABS: PARTIAL THROMBOPLASTIN TIME 111.6 SECONDS (24.8-34.2)
[2022-09-20 06:53] LABS: ALBUMIN 3.4 G/DL (3.2-5.2); BILIRUBIN,TOTAL 0.2 MG/DL (0.3-1.2); CALCIUM LEVEL 8.6 MG/DL (8.3-10.6); CREATININE FOR GFR 1.66 MG/DL (0.55-1.30); GLOMERULAR FILTRATION RATE 31.3 (>32); MAGNESIUM LEVEL 1.8 MG/DL (1.8-2.4); POTASSIUM SERUM 4.8 MMOL/L (3.5-5.1); TOTAL PROTEIN 5.6 G/DL (5.7-8.2)
[2022-09-20] MEDS: POTASSIUM CHLORIDE 10MEQ SR TABLET PO SCH ×2 (08:12→18:00)
[2022-09-20] MEDS: ROSUVASTATIN 10 MG TAB (CRESTOR) PO SCH (08:13)
[2022-09-20] MEDS: TORSEMIDE 10 MG TABLET PO SCH (08:13)
[2022-09-20] MEDS: PARoxetine 20MG TABLET PO SCH (08:13)
[2022-09-20] MEDS: MULTIVITAMINS/MINERALS THERAP 1 TAB PO SCH (08:13)
[2022-09-20] MEDS: bisoproloL fumarate 10 MG TAB PO SCH (08:14)
[2022-09-20 12:09] LABS: HEMATOCRIT 29.5 % (36.0-47.0); HEMOGLOBIN 8.9 g/dl (12.0-15.5)
[2022-09-20 12:26] LABS: INR 1.09; PROTHROMBIN TIME 14.3 SECONDS (12.5-14.5)
[2022-09-20 12:27] LABS: PARTIAL THROMBOPLASTIN TIME 78.5 SECONDS (24.8-34.2)
[2022-09-20] MEDS ORDERED: FUROSEMIDE 40MG/4ML VIAL IV ONE (13:55)
[2022-09-20] MEDS: ACETAMINOPHEN TAB 650MG DOSE (2X325MG) PO PRN ×2 (14:27→20:08)
[2022-09-20] MEDS: PANTOPRAZOLE 40MG VIAL IV SCH (18:13)
[2022-09-20 19:15] LABS: PROTHROMBIN TIME 13.4 SECONDS (12.5-14.5)
[2022-09-20 19:17] LABS: PARTIAL THROMBOPLASTIN TIME 71.1 SECONDS (24.8-34.2)
[2022-09-20] MEDS: MIRTAZAPINE 15 MG TAB PO SCH (20:08)
[2022-09-20 20:18] LABS: HEMATOCRIT 27.9 % (36.0-47.0); HEMOGLOBIN 8.6 g/dl (12.0-15.5)
[2022-09-20] MEDS: RAMELTEON 8 MG TAB (ROZEREM) PO PRN (23:36)
[2022-09-21] VITALS (7 sets, daily range): BP systolic 115–133; BP diastolic 61–95; TEMP 97.3–98.3; O2SAT 89–97
[2022-09-21 06:20] LABS: BASO # 0.1 10^3/uL (0.0-0.2); BASO % 0.6 % (0.0-1.0); EOS # 0.3 10^3/uL (0.0-0.5); EOS % 3.7 % (0.0-3.0); HEMATOCRIT 28.2 % (36.0-47.0); HEMOGLOBIN 8.3 g/dl (12.0-15.5); LYMPH # 1.8 10^3/uL (1.5-5.0); LYMPH % 21.4 % (24.0-44.0); MEAN CORPUSCULAR HEMOGLOBIN 29.2 pg (27.0-33.0); MEAN CORPUSCULAR HGB CONC 29.4 g/dl (32.0-36.5); MEAN CORPUSCULAR VOLUME 99.3 fl (80.0-96.0); MONO # 0.9 10^3/uL (0.0-0.8); MONO % 10.1 % (2.0-8.0); NEUTROPHILS # 5.4 10^3/uL (1.5-8.5); NEUTROPHILS % 63.7 % (36.0-66.0); PLATELET COUNT, AUTOMATED 204 10^3/uL (150-450); RED BLOOD COUNT 2.84 10^6/uL (4.00-5.40); WHITE BLOOD COUNT 8.5 10^3/uL (4.0-10.0)
[2022-09-21 06:53] LABS: ALBUMIN 2.8 G/DL (3.2-5.2); BILIRUBIN,TOTAL 0.2 MG/DL (0.3-1.2); CALCIUM LEVEL 8.3 MG/DL (8.3-10.6); CREATININE FOR GFR 1.44 MG/DL (0.55-1.30); GLOMERULAR FILTRATION RATE 36.8 (>32); MAGNESIUM LEVEL 1.6 MG/DL (1.8-2.4); POTASSIUM SERUM 3.9 MMOL/L (3.5-5.1); TOTAL PROTEIN 4.9 G/DL (5.7-8.2)
[2022-09-21] MEDS: MAGNESIUM OXIDE 400MG TAB (MAG-OX) PO SCH ×3 (09:25→20:39)
[2022-09-21] MEDS: FERROUS GLUCONATE 324 MG TAB PO SCH (09:25)
[2022-09-21] MEDS: TORSEMIDE 10 MG TABLET PO SCH (09:25)
[2022-09-21] MEDS: ROSUVASTATIN 10 MG TAB (CRESTOR) PO SCH (09:25)
[2022-09-21] MEDS: PARoxetine 20MG TABLET PO SCH (09:25)
[2022-09-21] MEDS: MULTIVITAMINS/MINERALS THERAP 1 TAB PO SCH (09:26)
[2022-09-21] MEDS: bisoproloL fumarate 10 MG TAB PO SCH (09:26)
[2022-09-21] MEDS: PANTOPRAZOLE 40MG TAB (PROTONIX) PO SCH (09:26)
[2022-09-21] MEDS: POTASSIUM CHLORIDE 10MEQ SR TABLET PO SCH ×2 (09:28→17:23)
[2022-09-21] MEDS: HEPARIN DRIP 25,000 UNITS in IV 1 EA IV SCH (09:39)
[2022-09-21 12:19] LABS: HEMATOCRIT 27.9 % (36.0-47.0); HEMOGLOBIN 8.6 g/dl (12.0-15.5)
[2022-09-21 13:14] LABS: CLOSTRIDIUM DIFFICILE PCR NEGATIVE (NEGATIVE)
[2022-09-21 19:55] LABS: HEMATOCRIT 30.4 % (36.0-47.0); HEMOGLOBIN 9.5 g/dl (12.0-15.5); MEAN CORPUSCULAR HEMOGLOBIN 30.2 pg (27.0-33.0); MEAN CORPUSCULAR HGB CONC 31.3 g/dl (32.0-36.5); MEAN CORPUSCULAR VOLUME 96.5 fl (80.0-96.0); PLATELET COUNT, AUTOMATED 257 10^3/uL (150-450); RED BLOOD COUNT 3.15 10^6/uL (4.00-5.40); WHITE BLOOD COUNT 6.6 10^3/uL (4.0-10.0)
[2022-09-21 20:28] LABS: HEMATOCRIT 29.9 % (36.0-47.0)
[2022-09-21] MEDS: MIRTAZAPINE 15 MG TAB PO SCH (20:39)
[2022-09-21] MEDS: ACETAMINOPHEN TAB 650MG DOSE (2X325MG) PO PRN (20:39)
[2022-09-21] MEDS: RAMELTEON 8 MG TAB (ROZEREM) PO PRN (22:05)
[2022-09-21] MEDS: ANEXSIA, NORCO 7.5MG/325MG TABLET(HYDROCODONE/APAP) PO PRN (22:07)
[2022-09-22] VITALS (11 sets, daily range): BP systolic 104–119; BP diastolic 55–58; TEMP 97.9–98.1; O2SAT 82–96
[2022-09-22 06:22] LABS: BASO # 0.1 10^3/uL (0.0-0.2); BASO % 0.8 % (0.0-1.0); EOS # 0.3 10^3/uL (0.0-0.5); EOS % 4.6 % (0.0-3.0); HEMATOCRIT 29.4 % (36.0-47.0); HEMOGLOBIN 9.1 g/dl (12.0-15.5); LYMPH # 2.3 10^3/uL (1.5-5.0); LYMPH % 35.3 % (24.0-44.0); MEAN CORPUSCULAR HEMOGLOBIN 29.8 pg (27.0-33.0); MEAN CORPUSCULAR VOLUME 96.4 fl (80.0-96.0); MONO # 0.6 10^3/uL (0.0-0.8); MONO % 9.8 % (2.0-8.0); NEUTROPHILS # 3.2 10^3/uL (1.5-8.5); PLATELET COUNT, AUTOMATED 240 10^3/uL (150-450); RED BLOOD COUNT 3.05 10^6/uL (4.00-5.40); WHITE BLOOD COUNT 6.5 10^3/uL (4.0-10.0)
[2022-09-22 06:31] LABS: INR 1.04; PROTHROMBIN TIME 13.8 SECONDS (12.5-14.5)
[2022-09-22 06:32] LABS: PARTIAL THROMBOPLASTIN TIME 62.9 SECONDS (24.8-34.2)
[2022-09-22 06:43] LABS: ALBUMIN 2.9 G/DL (3.2-5.2); BILIRUBIN,TOTAL 0.2 MG/DL (0.3-1.2); CALCIUM LEVEL 8.9 MG/DL (8.3-10.6); CREATININE FOR GFR 1.25 MG/DL (0.55-1.30); GLOMERULAR FILTRATION RATE 43.4 (>32); MAGNESIUM LEVEL 1.8 MG/DL (1.8-2.4); POTASSIUM SERUM 4.1 MMOL/L (3.5-5.1); TOTAL PROTEIN 5.1 G/DL (5.7-8.2)
[2022-09-22] MEDS: ROSUVASTATIN 10 MG TAB (CRESTOR) PO SCH (09:07)
[2022-09-22] MEDS: FERROUS GLUCONATE 324 MG TAB PO SCH (09:07)
[2022-09-22] MEDS: POTASSIUM CHLORIDE 10MEQ SR TABLET PO SCH ×2 (09:07→18:09)
[2022-09-22] MEDS: PARoxetine 20MG TABLET PO SCH (09:07)
[2022-09-22] MEDS: TORSEMIDE 10 MG TABLET PO SCH (09:07)
[2022-09-22] MEDS: MULTIVITAMINS/MINERALS THERAP 1 TAB PO SCH (09:08)
[2022-09-22] MEDS: PANTOPRAZOLE 40MG TAB (PROTONIX) PO SCH (09:08)
[2022-09-22] MEDS: MAGNESIUM OXIDE 400MG TAB (MAG-OX) PO SCH ×3 (09:08→20:45)
[2022-09-22] MEDS: bisoproloL fumarate 10 MG TAB PO SCH (09:10)
[2022-09-22 13:42] LABS: HEMOGLOBIN 9.7 g/dl (12.0-15.5)
[2022-09-22] MEDS: APIXABAN 5 MG TAB (ELIQUIS) PO SCH ×2 (13:42→20:44)
[2022-09-22] MEDS: MIRTAZAPINE 15 MG TAB PO SCH (20:45)
[2022-09-22] MEDS: RAMELTEON 8 MG TAB (ROZEREM) PO PRN (20:45)
[2022-09-22] MEDS: ACETAMINOPHEN TAB 650MG DOSE (2X325MG) PO PRN (20:45)
[2022-09-22] MEDS ORDERED: APIXABAN 2.5 MG TAB (ELIQUIS) PO SCH (21:00)
[2022-09-22 21:35] LABS: HEMATOCRIT 27.7 % (36.0-47.0); HEMOGLOBIN 8.6 g/dl (12.0-15.5)
[2022-09-23] VITALS (8 sets, daily range): BP systolic 94–131; BP diastolic 47–63; TEMP 97.9–98.1; O2SAT 89–96
[2022-09-23 06:28] LABS: BASO % 0.6 % (0.0-1.0); EOS # 0.4 10^3/uL (0.0-0.5); EOS % 5.2 % (0.0-3.0); HEMATOCRIT 29.3 % (36.0-47.0); HEMOGLOBIN 8.8 g/dl (12.0-15.5); LYMPH # 1.7 10^3/uL (1.5-5.0); LYMPH % 25.4 % (24.0-44.0); MEAN CORPUSCULAR HEMOGLOBIN 29.6 pg (27.0-33.0); MEAN CORPUSCULAR VOLUME 98.7 fl (80.0-96.0); MONO # 0.8 10^3/uL (0.0-0.8); MONO % 11.6 % (2.0-8.0); NEUTROPHILS # 3.8 10^3/uL (1.5-8.5); NEUTROPHILS % 56.6 % (36.0-66.0); PLATELET COUNT, AUTOMATED 257 10^3/uL (150-450); RED BLOOD COUNT 2.97 10^6/uL (4.00-5.40); WHITE BLOOD COUNT 6.7 10^3/uL (4.0-10.0)
[2022-09-23 06:54] LABS: ALBUMIN 2.8 G/DL (3.2-5.2); BILIRUBIN,TOTAL 0.2 MG/DL (0.3-1.2); CREATININE FOR GFR 1.19 MG/DL (0.55-1.30); GLOMERULAR FILTRATION RATE 45.9 (>32); MAGNESIUM LEVEL 1.9 MG/DL (1.8-2.4); POTASSIUM SERUM 4.2 MMOL/L (3.5-5.1); TOTAL PROTEIN 5.1 G/DL (5.7-8.2)
[2022-09-23] MEDS: MULTIVITAMINS/MINERALS THERAP 1 TAB PO SCH (08:55)
[2022-09-23] MEDS: APIXABAN 5 MG TAB (ELIQUIS) PO SCH ×2 (08:56→20:41)
[2022-09-23] MEDS: bisoproloL fumarate 10 MG TAB PO SCH (08:56)
[2022-09-23] MEDS: FERROUS GLUCONATE 324 MG TAB PO SCH (08:56)
[2022-09-23] MEDS: POTASSIUM CHLORIDE 10MEQ SR TABLET PO SCH ×2 (08:56→16:53)
[2022-09-23] MEDS: TORSEMIDE 10 MG TABLET PO SCH (08:56)
[2022-09-23] MEDS: MAGNESIUM OXIDE 400MG TAB (MAG-OX) PO SCH ×3 (08:56→20:41)
[2022-09-23] MEDS: PARoxetine 20MG TABLET PO SCH (08:56)
[2022-09-23] MEDS: ROSUVASTATIN 10 MG TAB (CRESTOR) PO SCH (08:56)
[2022-09-23] MEDS: PANTOPRAZOLE 40MG TAB (PROTONIX) PO SCH (08:56)
[2022-09-23] MEDS: ACETAMINOPHEN TAB 650MG DOSE (2X325MG) PO PRN (08:57)
[2022-09-23] MEDS: ANEXSIA, NORCO 7.5MG/325MG TABLET(HYDROCODONE/APAP) PO PRN ×2 (12:05→20:42)
[2022-09-23] MEDS ORDERED: CHLORASEPTIC SPRAY MT PRN (15:10)
[2022-09-23] MEDS: SODIUM CHLORIDE NASAL 0.65% SPRAY BTL (OCEAN) SCH ×2 (16:05→20:42)
[2022-09-23 17:37] LABS: HEMOGLOBIN 9.3 g/dl (12.0-15.5)
[2022-09-23] MEDS: MIRTAZAPINE 15 MG TAB PO SCH (20:41)
[2022-09-23] MEDS: RAMELTEON 8 MG TAB (ROZEREM) PO PRN (20:41)
[2022-09-24 05:53] VITALS: BP 114/59; TEMP 98.1; O2SAT 89
[2022-09-24 06:20] LABS: BASO # 0.1 10^3/uL (0.0-0.2); BASO % 0.5 % (0.0-1.0); EOS # 0.4 10^3/uL (0.0-0.5); EOS % 3.8 % (0.0-3.0); HEMATOCRIT 28.8 % (36.0-47.0); HEMOGLOBIN 8.8 g/dl (12.0-15.5); LYMPH # 1.3 10^3/uL (1.5-5.0); LYMPH % 11.7 % (24.0-44.0); MEAN CORPUSCULAR HEMOGLOBIN 29.9 pg (27.0-33.0); MEAN CORPUSCULAR HGB CONC 30.6 g/dl (32.0-36.5); MONO # 1.2 10^3/uL (0.0-0.8); MONO % 10.6 % (2.0-8.0); NEUTROPHILS # 7.9 10^3/uL (1.5-8.5); PLATELET COUNT, AUTOMATED 277 10^3/uL (150-450); RED BLOOD COUNT 2.94 10^6/uL (4.00-5.40); WHITE BLOOD COUNT 10.8 10^3/uL (4.0-10.0)
[2022-09-24 06:44] LABS: ALBUMIN 2.8 G/DL (3.2-5.2); BILIRUBIN,TOTAL 0.2 MG/DL (0.3-1.2); CALCIUM LEVEL 10.3 MG/DL (8.3-10.6); CREATININE FOR GFR 1.25 MG/DL (0.55-1.30); GLOMERULAR FILTRATION RATE 43.3 (>32); POTASSIUM SERUM 4.2 MMOL/L (3.5-5.1); TOTAL PROTEIN 5.2 G/DL (5.7-8.2)
[2022-09-24] MEDS: MULTIVITAMINS/MINERALS THERAP 1 TAB PO SCH (08:13)
[2022-09-24] MEDS: FERROUS GLUCONATE 324 MG TAB PO SCH (08:13)
[2022-09-24] MEDS: PANTOPRAZOLE 40MG TAB (PROTONIX) PO SCH (08:13)
[2022-09-24] MEDS: POTASSIUM CHLORIDE 10MEQ SR TABLET PO SCH (08:13)
[2022-09-24] MEDS: PARoxetine 20MG TABLET PO SCH (08:13)
[2022-09-24] MEDS: ROSUVASTATIN 10 MG TAB (CRESTOR) PO SCH (08:13)
[2022-09-24] MEDS: MAGNESIUM OXIDE 400MG TAB (MAG-OX) PO SCH (08:13)
[2022-09-24] MEDS: APIXABAN 5 MG TAB (ELIQUIS) PO SCH (08:13)
[2022-09-24] MEDS: TORSEMIDE 10 MG TABLET PO SCH (08:14)
[2022-09-24] MEDS: SODIUM CHLORIDE NASAL 0.65% SPRAY BTL (OCEAN) SCH (08:14)
[2022-09-24 08:17] VITALS: BP 110/58
[2022-09-24] MEDS: bisoproloL fumarate 10 MG TAB PO SCH (08:17)
[2022-09-24] MEDS: ACETAMINOPHEN TAB 650MG DOSE (2X325MG) PO PRN (08:18)
[2022-09-24] MEDS ORDERED: MAGN400T2 PO (10:12)
[2022-09-24] MEDS ORDERED: ELIQ5TAB PO (11:20)
== END 2022-09-24 15:02 | disposition home health service (06) | DRG 176 ==
LOC: EDBD 11:44 → M ED 11:44 → M ED INP 16:56 → M PCU 20:37 → M MSPAV 09-21 21:50
PROVIDERS: ADMIT Family Medicine; ATTEND Internal Medicine Nephrology
PROC: B246ZZZ Ultrasonography of Right and Left Heart (ICD-10-PCS; principal; 2022-09-23)
DX: I26.99 Other pulmonary embolism without acute cor pulmonale (principal); N17.9 Acute kidney failure, unspecified; I50.32 Chronic diastolic (congestive) heart failure; I13.0 Hypertensive heart and chronic kidney disease with heart failure and stage 1 through stage 4 chronic kidney disease, or unspecified chronic kidney disease; F32.9 Major depressive disorder, single episode, unspecified; F41.1 Generalized anxiety disorder; M19.90 Unspecified osteoarthritis, unspecified site; R53.1 Weakness; R53.83 Other fatigue; R63.4 Abnormal weight loss; R91.8 Other nonspecific abnormal finding of lung field; N28.1 Cyst of kidney, acquired; K76.89 Other specified diseases of liver; K44.9 Diaphragmatic hernia without obstruction or gangrene; D50.9 Iron deficiency anemia, unspecified; G89.29 Other chronic pain; M47.812 Spondylosis 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y or radiculopathy, cervical region; M47.816 Spondylosis 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y or radiculopathy, lumbar region; D63.8 Anemia in other chronic diseases classified elsewhere; I65.22 Occlusion and stenosis of left carotid artery; K57.30 Diverticulosis of large intestine without perforation or abscess without bleeding; F03.90 Unspecified dementia, unspecified severity, without behavioral disturbance, psychotic disturbance, mood disturbance, and anxiety; G47.00 Insomnia, unspecified; G47.33 Obstructive sleep apnea (adult) (pediatric); E55.9 Vitamin D deficiency, unspecified; R19.7 Diarrhea, unspecified; N18.30 Chronic kidney disease, stage 3 unspecified; M71.22 Synovial cyst of popliteal space [Baker], left knee; I27.20 Pulmonary hypertension, unspecified; I34.0 Nonrheumatic mitral (valve) insufficiency; M48.54XD Collapsed vertebra, not elsewhere classified, thoracic region, subsequent encounter for fracture with routine healing; K31.819 Angiodysplasia of stomach and duodenum without bleeding; M81.0 Age-related osteoporosis without current pathological fracture; K21.9 Gastro-esophageal reflux disease without esophagitis; Z79.899 Other long term (current) drug therapy; Z86.718 Personal history of other venous thrombosis and embolism; Z88.0 Allergy status to penicillin; Z86.73 Personal history of transient ischemic attack (TIA), and cerebral infarction without residual deficits; Z88.1 Allergy status to other antibiotic agents; Z88.8 Allergy status to other drugs, medicaments and biological substances; Z85.820 Personal history of malignant melanoma of skin; Z88.6 Allergy status to analgesic agent

== ENCOUNTER → 2022-09-27 | Outpatient (CLI) | payer MEDICARE ==
[~2022-09-27] MED LIST changes: +TOPI-254
[2022-09-27 13:25] LABS: BASO % 0.3 % (0.0-1.0); EOS # 0.3 10^3/uL (0.0-0.5); EOS % 3.5 % (0.0-3.0); HEMATOCRIT 29.8 % (36.0-47.0); LYMPH # 1.7 10^3/uL (1.5-5.0); LYMPH % 19.4 % (24.0-44.0); MEAN CORPUSCULAR HEMOGLOBIN 29.6 pg (27.0-33.0); MEAN CORPUSCULAR HGB CONC 30.2 g/dl (32.0-36.5); MONO # 0.8 10^3/uL (0.0-0.8); MONO % 8.8 % (2.0-8.0); NEUTROPHILS # 5.8 10^3/uL (1.5-8.5); NEUTROPHILS % 67.5 % (36.0-66.0); PLATELET COUNT, AUTOMATED 339 10^3/uL (150-450); RED BLOOD COUNT 3.04 10^6/uL (4.00-5.40); WHITE BLOOD COUNT 8.6 10^3/uL (4.0-10.0)
== END ==
LOC: M LAB 13:08
PROVIDERS: ATTEND Internal Medicine Nephrology
DX: Z01.89 Encounter for other specified special examinations (principal)

== ENCOUNTER → 2022-09-29 | Outpatient (REF) | payer MEDICARE ==
[~2022-09-29] MED LIST changes: -TOPI-254
== END ==
LOC: M SFHCPLAZ 15:02
PROVIDERS: ATTEND Physician Assistant
DX: R05.1 Acute cough (principal)

== ENCOUNTER → 2022-10-11 | Outpatient (CLI) | payer MEDICARE ==
[~2022-10-11] MED LIST changes: +TOPI-254
== END ==
LOC: M WHC 14:47
PROVIDERS: ATTEND Family Medicine
DX: Z12.31 Encounter for screening mammogram for malignant neoplasm of breast (principal)

== ENCOUNTER 2022-10-12 12:41 | Observation (INO) | payer MEDICARE ==
[~2022-10-12] VITALS: Ht 152.4 cm; Wt 65.3 kg
[~2022-10-12 12:41] MED LIST changes: -TOPI-254
[2022-10-12] MEDS ORDERED: TOPI-254 (13:02)
[2022-10-12 13:25] LABS: BASO # 0.1 10^3/uL (0.0-0.2); BASO % 0.8 % (0.0-1.0); EOS # 0.2 10^3/uL (0.0-0.5); EOS % 3.7 % (0.0-3.0); HEMATOCRIT 30.6 % (36.0-47.0); HEMOGLOBIN 8.9 g/dl (12.0-15.5); LYMPH # 1.9 10^3/uL (1.5-5.0); MEAN CORPUSCULAR HEMOGLOBIN 29.2 pg (27.0-33.0); MEAN CORPUSCULAR HGB CONC 29.1 g/dl (32.0-36.5); MEAN CORPUSCULAR VOLUME 100.3 fl (80.0-96.0); MONO # 0.6 10^3/uL (0.0-0.8); NEUTROPHILS # 3.7 10^3/uL (1.5-8.5); NEUTROPHILS % 57.2 % (36.0-66.0); PLATELET COUNT, AUTOMATED 384 10^3/uL (150-450); RED BLOOD COUNT 3.05 10^6/uL (4.00-5.40); WHITE BLOOD COUNT 6.5 10^3/uL (4.0-10.0)
[2022-10-12 13:44] LABS: INR 1.14; PROTHROMBIN TIME 14.8 SECONDS (12.5-14.5)
[2022-10-12 13:49] LABS: LIPASE 47 U/L (12-53)
[2022-10-12 13:52] LABS: ALBUMIN 3.6 G/DL (3.2-5.2); ALKALINE PHOSPHATASE 65 U/L (46-116); ALT/SGPT 12 U/L (7.0-40); AST/SGOT 15 U/L (<34); BILIRUBIN,DIRECT < 0.1 MG/DL (<0.4); BILIRUBIN,TOTAL 0.2 MG/DL (0.3-1.2); BLOOD UREA NITROGEN 30 MG/DL (9-23); CALCIUM LEVEL 10.4 MG/DL (8.3-10.6); CARBON DIOXIDE LEVEL 25 MMOL/L (20-31); CHLORIDE LEVEL 110 MMOL/L (98-107); CREATININE FOR GFR 1.53 MG/DL (0.55-1.30); GLOMERULAR FILTRATION RATE 34.3 (>32); GLUCOSE, FASTING 115 MG/DL (74-106); POTASSIUM SERUM 4.9 MMOL/L (3.5-5.1); SODIUM LEVEL 143 MMOL/L (136-145); TOTAL PROTEIN 6.4 G/DL (5.7-8.2)
[2022-10-12] MEDS ORDERED: ISOVUE-370 76% 100ML VIAL As Ordered ONE (14:07)
[2022-10-12 15:18] LABS: RSV AMPLIFICATION NEGATIVE (NEGATIVE)
[2022-10-12] MEDS ORDERED: PANTOPRAZOLE 40MG VIAL IV ONE (15:30)
[2022-10-12] MEDS ORDERED: MED REC IN PROGRESS XX SCH (16:45)
[2022-10-12] MEDS ORDERED: ELIQ5TAB PO (17:56)
[2022-10-12] MEDS ORDERED: HOME MED LIST COMPLETE! XX SCH (18:05)
[2022-10-12 20:01] VITALS: BP 126/52; TEMP 97.7; O2SAT 98
[2022-10-12] MEDS: MAGNESIUM OXIDE 400MG TAB (MAG-OX) PO SCH (21:13)
[2022-10-12] MEDS: APIXABAN 5 MG TAB (ELIQUIS) PO SCH (21:13)
[2022-10-12 22:20] LABS: HEMATOCRIT 25.3 % (36.0-47.0); HEMOGLOBIN 7.5 g/dl (12.0-15.5)
[2022-10-13] MEDS ORDERED: MIRTAZAPINE 15 MG TAB PO SCH (00:10)
[2022-10-13] MEDS: ACETAMINOPHEN TAB 650MG DOSE (2X325MG) PO PRN ×2 (00:19→09:28)
[2022-10-13 04:47] LABS: HEMATOCRIT 26.8 % (36.0-47.0); HEMOGLOBIN 8.1 g/dl (12.0-15.5); MEAN CORPUSCULAR HGB CONC 30.2 g/dl (32.0-36.5); MEAN CORPUSCULAR VOLUME 99.3 fl (80.0-96.0); PLATELET COUNT, AUTOMATED 306 10^3/uL (150-450); WHITE BLOOD COUNT 6.2 10^3/uL (4.0-10.0)
[2022-10-13 05:17] LABS: CALCIUM LEVEL 9.5 MG/DL (8.3-10.6); CREATININE FOR GFR 1.3 MG/DL (0.55-1.30); GLOMERULAR FILTRATION RATE 41.3 (>32); MAGNESIUM LEVEL 2.4 MG/DL (1.8-2.4); POTASSIUM SERUM 4.5 MMOL/L (3.5-5.1)
[2022-10-13 06:10] VITALS: BP 113/55; TEMP 97.9; O2SAT 93
[2022-10-13] MEDS ORDERED: POTASSIUM CHLORIDE 10MEQ SR TABLET PO SCH (08:00)
[2022-10-13] MEDS ORDERED: bisoproloL fumarate 10 MG TAB PO SCH (09:00)
[2022-10-13] MEDS ORDERED: PANTOPRAZOLE 40MG VIAL IV SCH (09:00)
[2022-10-13] MEDS ORDERED: ROSUVASTATIN 10 MG TAB (CRESTOR) PO SCH (09:00)
[2022-10-13] MEDS ORDERED: PARoxetine 20MG TABLET PO SCH (09:00)
[2022-10-13] MEDS: MAGNESIUM OXIDE 400MG TAB (MAG-OX) PO SCH (09:29)
[2022-10-13] MEDS: APIXABAN 5 MG TAB (ELIQUIS) PO SCH (09:29)
[2022-10-13 09:32] VITALS: BP 112/55
[2022-10-13 10:34] LABS: HEMATOCRIT 29.9 % (36.0-47.0); HEMOGLOBIN 8.4 g/dl (12.0-15.5)
[2022-10-13] MEDS ORDERED: oxyCODONE 5MG TAB PO PRN (11:50)
[2022-10-13] MEDS ORDERED: FERR325T3 PO (12:00)
[2022-10-13 14:00] VITALS: BP 98/50; TEMP 97.7; O2SAT 95
== END 2022-10-13 15:54 | disposition home or self-care (01) ==
LOC: M ED 12:41 → M MSPAV 16:58 → M ED INP 16:58 → M MSPAV 20:01
PROVIDERS: ADMIT Family Medicine; ATTEND Family Medicine
DX: K92.2 Gastrointestinal hemorrhage, unspecified (principal); Z86.711 Personal history of pulmonary embolism; Z79.01 Long term (current) use of anticoagulants; Z86.718 Personal history of other venous thrombosis and embolism; D50.9 Iron deficiency anemia, unspecified; R60.0 Localized edema; R53.1 Weakness; F33.9 Major depressive disorder, recurrent, unspecified; F41.1 Generalized anxiety disorder; M19.90 Unspecified osteoarthritis, unspecified site; E78.5 Hyperlipidemia, unspecified; M50.80 Other cervical disc disorders, unspecified cervical region; M51.36 Other intervertebral disc degeneration, lumbar region; G89.29 Other chronic pain; Z86.73 Personal history of transient ischemic attack (TIA), and cerebral infarction without residual deficits; Z95.828 Presence of other vascular implants and grafts; Z88.0 Allergy status to penicillin; Z88.6 Allergy status to analgesic agent; Z88.1 Allergy status to other antibiotic agents; Z88.8 Allergy status to other drugs, medicaments and biological substances; Z79.899 Other long term (current) drug therapy
CPT/HCPCS: 36415; 74177; 80048; 80076; 83605; 83690; 83735; 85014; 85018; 85025; 85027; 85610; 86850; 87631; 93005; 93041; 94760; 96374; 96376; 97161; 99285; C9113; G0378; Q9967

== ENCOUNTER 2022-10-20 16:20 | Inpatient (IN) | payer MEDICARE ==
[~2022-10-20] VITALS: Ht 152.4 cm; Wt 65.3 kg
[~2022-10-20 16:20] MED LIST changes: +TOPI-254
[2022-10-20 17:42] LABS: BASO % 0.6 % (0.0-1.0); EOS # 0.1 10^3/uL (0.0-0.5); EOS % 2.2 % (0.0-3.0); HEMATOCRIT 21.5 % (36.0-47.0); LYMPH # 1.7 10^3/uL (1.5-5.0); LYMPH % 27.5 % (24.0-44.0); MEAN CORPUSCULAR HEMOGLOBIN 30.3 pg (27.0-33.0); MEAN CORPUSCULAR HGB CONC 29.3 g/dl (32.0-36.5); MEAN CORPUSCULAR VOLUME 103.4 fl (80.0-96.0); MONO # 0.5 10^3/uL (0.0-0.8); MONO % 8.5 % (2.0-8.0); NEUTROPHILS # 3.9 10^3/uL (1.5-8.5); PLATELET COUNT, AUTOMATED 339 10^3/uL (150-450); RED BLOOD COUNT 2.08 10^6/uL (4.00-5.40); WHITE BLOOD COUNT 6.3 10^3/uL (4.0-10.0)
[2022-10-20 17:45] LABS: HEMOGLOBIN 6.3 g/dl (12.0-15.5)
[2022-10-20 18:09] LABS: CK-MB VALUE MASS 1.5 NG/ML (<3.6)
[2022-10-20 18:10] LABS: ALBUMIN 3.6 G/DL (3.2-5.2); ALKALINE PHOSPHATASE 54 U/L (46-116); ALT/SGPT 11 U/L (7.0-40); AST/SGOT 17 U/L (<34); BILIRUBIN,DIRECT < 0.1 MG/DL (<0.4); BILIRUBIN,TOTAL 0.2 MG/DL (0.3-1.2); BLOOD UREA NITROGEN 24 MG/DL (9-23); CALCIUM LEVEL 9.6 MG/DL (8.3-10.6); CARBON DIOXIDE LEVEL 24 MMOL/L (20-31); CHLORIDE LEVEL 107 MMOL/L (98-107); CPK CREATINE PHOSPHOKINASE 55 U/L (34-145); CREATININE FOR GFR 1.49 MG/DL (0.55-1.30); GLOMERULAR FILTRATION RATE 35.3 (>32); GLUCOSE, FASTING 133 MG/DL (74-106); MB/CK RELATIVE INDEX 2.72 (< OR =4); POTASSIUM SERUM 4.6 MMOL/L (3.5-5.1); SODIUM LEVEL 140 MMOL/L (136-145); TOTAL PROTEIN 5.9 G/DL (5.7-8.2)
[2022-10-20 18:12] LABS: THYROID STIMULATING HORMONE 3.791 uIU/ML (0.55-4.78)
[2022-10-20] MEDS ORDERED: PANTOPRAZOLE 40MG VIAL IV ONE (19:25)
[2022-10-20 19:50] LABS: INR 1.42; PROTHROMBIN TIME 17.6 SECONDS (12.5-14.5)
[2022-10-20 19:51] LABS: PARTIAL THROMBOPLASTIN TIME 37.3 SECONDS (24.8-34.2)
[2022-10-20 20:10] VITALS: BP 121/58; TEMP 97.3; O2SAT 93
[2022-10-20 20:38] LABS: RSV AMPLIFICATION NEGATIVE (NEGATIVE)
[2022-10-20] MEDS ORDERED: traZODone 25MG PER 1/2 TABLET PO SCH (21:00)
[2022-10-20] MEDS ORDERED: HOME MED LIST COMPLETE! XX SCH (23:30)
[2022-10-21 00:35] VITALS: BP 119/64; TEMP 97.8; O2SAT 93
[2022-10-21] MEDS ORDERED: NORCO, ANEXSIA 5/325MG TABLET (HYDROcodone/ACETAMINOPHEN) PO PRN (03:05)
[2022-10-21] MEDS ORDERED: FUROSEMIDE 40MG/4ML VIAL IV ONE (04:00)
[2022-10-21 04:52] LABS: HEMATOCRIT 24.8 % (36.0-47.0); HEMOGLOBIN 7.6 g/dl (12.0-15.5)
[2022-10-21 05:29] VITALS: BP 116/64; TEMP 98.6; O2SAT 93
[2022-10-21] MEDS: PANTOPRAZOLE 40MG VIAL IV SCH ×2 (09:14→20:33)
[2022-10-21 09:21] LABS: HEMATOCRIT 25.6 % (36.0-47.0); HEMOGLOBIN 8.2 g/dl (12.0-15.5)
[2022-10-21] MEDS: FERROUS SULFATE 325MG TAB PO SCH (09:23)
[2022-10-21] MEDS: MAGNESIUM OXIDE 400MG TAB (MAG-OX) PO SCH ×2 (09:24→20:33)
[2022-10-21] MEDS: PARoxetine 20MG TABLET PO SCH (09:24)
[2022-10-21] MEDS: TORSEMIDE 10 MG TABLET PO SCH (09:24)
[2022-10-21] MEDS: bisoproloL fumarate 10 MG TAB PO SCH (11:18)
[2022-10-21 12:18] LABS: ALBUMIN 3.4 G/DL (3.2-5.2); CALCIUM LEVEL 9.2 MG/DL (8.3-10.6); CREATININE FOR GFR 1.29 MG/DL (0.55-1.30); GLOMERULAR FILTRATION RATE 41.7 (>32); PHOSPHORUS LEVEL 2.9 MG/DL (2.4-5.1); POTASSIUM SERUM 3.6 MMOL/L (3.5-5.1)
[2022-10-21] MEDS: NORCO, ANEXSIA 5/325MG TABLET (HYDROcodone/ACETAMINOPHEN) PO PRN (13:41)
[2022-10-21 14:00] VITALS: BP 112/65; TEMP 97.9; O2SAT 98
[2022-10-21 15:00] LABS: HEMATOCRIT 28.5 % (36.0-47.0); HEMOGLOBIN 8.9 g/dl (12.0-15.5)
[2022-10-21 20:00] VITALS: BP 100/50; TEMP 97.9; O2SAT 94
[2022-10-21] MEDS: ROSUVASTATIN 10 MG TAB (CRESTOR) PO SCH (20:33)
[2022-10-21 21:34] LABS: HEMATOCRIT 27.8 % (36.0-47.0); HEMOGLOBIN 8.9 g/dl (12.0-15.5)
[2022-10-21] MEDS: ACETAMINOPHEN TAB 650MG DOSE (2X325MG) PO PRN (23:11)
[2022-10-21] MEDS: traZODone 25MG PER 1/2 TABLET PO PRN (23:11)
[2022-10-22] VITALS (9 sets, daily range): BP systolic 95–110; BP diastolic 44–87; TEMP 97.7–98.1; O2SAT 90–97
[2022-10-22 03:20] LABS: HEMATOCRIT 26.1 % (36.0-47.0); HEMOGLOBIN 8.3 g/dl (12.0-15.5); MEAN CORPUSCULAR HEMOGLOBIN 29.6 pg (27.0-33.0); MEAN CORPUSCULAR HGB CONC 31.8 g/dl (32.0-36.5); MEAN CORPUSCULAR VOLUME 93.2 fl (80.0-96.0); PLATELET COUNT, AUTOMATED 289 10^3/uL (150-450); WHITE BLOOD COUNT 6.8 10^3/uL (4.0-10.0)
[2022-10-22 03:50] LABS: CALCIUM LEVEL 8.8 MG/DL (8.3-10.6); CREATININE FOR GFR 1.37 MG/DL (0.55-1.30); GLOMERULAR FILTRATION RATE 38.9 (>32); MAGNESIUM LEVEL 2.1 MG/DL (1.8-2.4); POTASSIUM SERUM 3.6 MMOL/L (3.5-5.1)
[2022-10-22] MEDS: ACETAMINOPHEN TAB 650MG DOSE (2X325MG) PO PRN (08:58)
[2022-10-22] MEDS: PARoxetine 20MG TABLET PO SCH (08:58)
[2022-10-22] MEDS: bisoproloL fumarate 10 MG TAB PO SCH (08:58)
[2022-10-22] MEDS: TORSEMIDE 10 MG TABLET PO SCH (08:58)
[2022-10-22] MEDS: FERROUS SULFATE 325MG TAB PO SCH (08:59)
[2022-10-22] MEDS: MAGNESIUM OXIDE 400MG TAB (MAG-OX) PO SCH ×2 (08:59→20:55)
[2022-10-22] MEDS: PANTOPRAZOLE 40MG VIAL IV SCH ×2 (08:59→20:57)
[2022-10-22 09:14] LABS: HEMATOCRIT 27.7 % (36.0-47.0); HEMOGLOBIN 8.6 g/dl (12.0-15.5)
[2022-10-22] MEDS ORDERED: NS 1,000 ML IV SCH (09:35)
[2022-10-22] MEDS ORDERED: propofoL 200 MG/20 ML VIAL As Ordered ONE (15:09)
[2022-10-22] MEDS ORDERED: fentaNYL 100 MCG/2 ML INJECTION As Ordered ONE (15:09)
[2022-10-22] MEDS ORDERED: LIDOCAINE 2% 100MG/5ML SDV (FOR ANES.) As Ordered ONE (15:09)
[2022-10-22] MEDS ORDERED: PHENYLephrine 500MCG 5ML (100MCG/ML) SYRINGE As Ordered ONE (15:29)
[2022-10-22] MEDS ORDERED: ePHEDrine SULFATE 25 MG/5 ML(5MG/ML) SYRINGE As Ordered ONE (15:29)
[2022-10-22] MEDS: ROSUVASTATIN 10 MG TAB (CRESTOR) PO SCH (20:55)
[2022-10-22] MEDS: NORCO, ANEXSIA 5/325MG TABLET (HYDROcodone/ACETAMINOPHEN) PO PRN (20:56)
[2022-10-23] MEDS: traZODone 25MG PER 1/2 TABLET PO PRN (00:12)
[2022-10-23 01:15] VITALS: BP 109/48; TEMP 97.9; O2SAT 91
[2022-10-23 05:15] VITALS: BP 108/49; TEMP 97.9; O2SAT 96
[2022-10-23 05:38] LABS: HEMATOCRIT 27.3 % (36.0-47.0); HEMOGLOBIN 8.5 g/dl (12.0-15.5); MEAN CORPUSCULAR HEMOGLOBIN 29.9 pg (27.0-33.0); MEAN CORPUSCULAR HGB CONC 31.1 g/dl (32.0-36.5); MEAN CORPUSCULAR VOLUME 96.1 fl (80.0-96.0); PLATELET COUNT, AUTOMATED 297 10^3/uL (150-450); RED BLOOD COUNT 2.84 10^6/uL (4.00-5.40); WHITE BLOOD COUNT 6.5 10^3/uL (4.0-10.0)
[2022-10-23 06:06] LABS: CALCIUM LEVEL 8.6 MG/DL (8.3-10.6); CREATININE FOR GFR 1.25 MG/DL (0.55-1.30); GLOMERULAR FILTRATION RATE 43.3 (>32); MAGNESIUM LEVEL 2.2 MG/DL (1.8-2.4); POTASSIUM SERUM 3.6 MMOL/L (3.5-5.1)
[2022-10-23 08:07] VITALS: BP 109/50
[2022-10-23] MEDS: PARoxetine 20MG TABLET PO SCH (08:07)
[2022-10-23] MEDS: PANTOPRAZOLE 40MG VIAL IV SCH (08:07)
[2022-10-23] MEDS: bisoproloL fumarate 10 MG TAB PO SCH (08:07)
[2022-10-23] MEDS: FERROUS SULFATE 325MG TAB PO SCH (08:07)
[2022-10-23] MEDS: TORSEMIDE 10 MG TABLET PO SCH (08:07)
[2022-10-23] MEDS: MAGNESIUM OXIDE 400MG TAB (MAG-OX) PO SCH (08:07)
[2022-10-23 08:14] VITALS: O2SAT 92
[2022-10-23 10:00] VITALS: BP 103/49; TEMP 98.4; O2SAT 92
[2022-10-23] MEDS ORDERED: SUCR1SS PO (10:38)
[2022-10-23] MEDS ORDERED: ELIQ5TAB PO (10:38)
[2022-10-23] MEDS ORDERED: OMEP40CA5 PO (10:38)
[2022-10-23 14:00] VITALS: BP 92/50; TEMP 98.4; O2SAT 90
[2022-10-23] MEDS ORDERED: CARA1TAB6 PO (14:36)
[2022-10-23] MEDS: ACETAMINOPHEN TAB 650MG DOSE (2X325MG) PO PRN (15:33)
== END 2022-10-23 15:44 | disposition home or self-care (01) | DRG 378 ==
LOC: M ED 16:20 → M ED INP 10-21 00:02 → M MSPAV 10-21 06:00
PROVIDERS: ADMIT Internal Medicine Nephrology; ATTEND Family Medicine
PROC: 30233N1 Transfusion of Nonautologous Red Blood Cells into Peripheral Vein, Percutaneous Approach (ICD-10-PCS; 2022-10-20)
PROC: 0W3P8ZZ Control Bleeding in Gastrointestinal Tract, Via Natural or Artificial Opening Endoscopic (ICD-10-PCS; 2022-10-22)
PROC: 0DB98ZX Excision of Duodenum, Via Natural or Artificial Opening Endoscopic, Diagnostic (ICD-10-PCS; principal; 2022-10-22 14:00)
DX: K55.21 Angiodysplasia of colon with hemorrhage (principal); I50.32 Chronic diastolic (congestive) heart failure; I13.0 Hypertensive heart and chronic kidney disease with heart failure and stage 1 through stage 4 chronic kidney disease, or unspecified chronic kidney disease; D62 Acute posthemorrhagic anemia; D68.32 Hemorrhagic disorder due to extrinsic circulating anticoagulants; F03.90 Unspecified dementia, unspecified severity, without behavioral disturbance, psychotic disturbance, mood disturbance, and anxiety; F41.1 Generalized anxiety disorder; F32.9 Major depressive disorder, single episode, unspecified; M81.0 Age-related osteoporosis without current pathological fracture; K57.30 Diverticulosis of large intestine without perforation or abscess without bleeding; I65.22 Occlusion and stenosis of left carotid artery; I27.20 Pulmonary hypertension, unspecified; I34.0 Nonrheumatic mitral (valve) insufficiency; D50.9 Iron deficiency anemia, unspecified; K44.9 Diaphragmatic hernia without obstruction or gangrene; K21.9 Gastro-esophageal reflux disease without esophagitis; N18.30 Chronic kidney disease, stage 3 unspecified; M50.30 Other cervical disc degeneration, unspecified cervical region; G89.29 Other chronic pain; M96.1 Postlaminectomy syndrome, not elsewhere classified; M17.12 Unilateral primary osteoarthritis, left knee; E78.5 Hyperlipidemia, unspecified; G47.00 Insomnia, unspecified; K29.70 Gastritis, unspecified, without bleeding; G47.33 Obstructive sleep apnea (adult) (pediatric); K26.9 Duodenal ulcer, unspecified as acute or chronic, without hemorrhage or perforation; E55.9 Vitamin D deficiency, unspecified; R53.1 Weakness; R53.81 Other malaise; Z86.73 Personal history of transient ischemic attack (TIA), and cerebral infarction without residual deficits; Z86.010 Personal history of colon polyps; Z85.828 Personal history of other malignant neoplasm of skin; Z96.651 Presence of right artificial knee joint; Z86.718 Personal history of other venous thrombosis and embolism; Z85.820 Personal history of malignant melanoma of skin; Z90.49 Acquired absence of other specified parts of digestive tract; Z89.022 Acquired absence of left finger(s); Z95.828 Presence of other vascular implants and grafts; Z86.711 Personal history of pulmonary embolism; Z79.01 Long term (current) use of anticoagulants; Z88.0 Allergy status to penicillin; Z88.6 Allergy status to analgesic agent; Z88.8 Allergy status to other drugs, medicaments and biological substances; Z79.899 Other long term (current) drug therapy

== ENCOUNTER → 2022-10-27 | Outpatient (CLI) | payer MEDICARE ==
[~2022-10-27] MED LIST changes: +CARA1TAB6 PO; -GABA-283 PO; +GABA-284 PO
== END ==
LOC: M WHC 12:38
PROVIDERS: ATTEND Family Medicine
DX: Z12.31 Encounter for screening mammogram for malignant neoplasm of breast (principal)
CPT/HCPCS: 77065; G0279

== ENCOUNTER → 2022-10-28 | Outpatient (CLI) | payer MEDICARE ==
[2022-10-28 16:00] LABS: HEMATOCRIT 31.3 % (36.0-47.0)
[2022-10-28 16:02] LABS: BASO # 0.1 10^3/uL (0.0-0.2); BASO % 0.7 % (0.0-1.0); EOS # 0.2 10^3/uL (0.0-0.5); EOS % 3.1 % (0.0-3.0); HEMATOCRIT 30.1 % (36.0-47.0); HEMOGLOBIN 9.1 g/dl (12.0-15.5); LYMPH # 1.7 10^3/uL (1.5-5.0); LYMPH % 23.3 % (24.0-44.0); MEAN CORPUSCULAR HEMOGLOBIN 30.3 pg (27.0-33.0); MEAN CORPUSCULAR HGB CONC 30.2 g/dl (32.0-36.5); MEAN CORPUSCULAR VOLUME 100.3 fl (80.0-96.0); MONO # 0.5 10^3/uL (0.0-0.8); MONO % 7.2 % (2.0-8.0); NEUTROPHILS # 4.6 10^3/uL (1.5-8.5); NEUTROPHILS % 65.3 % (36.0-66.0); PLATELET COUNT, AUTOMATED 325 10^3/uL (150-450); WHITE BLOOD COUNT 7.1 10^3/uL (4.0-10.0)
[2022-10-28 16:30] LABS: ALBUMIN 3.8 G/DL (3.2-5.2); BILIRUBIN,TOTAL 0.3 MG/DL (0.3-1.2); CALCIUM LEVEL 10.2 MG/DL (8.3-10.6); CREATININE FOR GFR 1.49 MG/DL (0.55-1.30); GLOMERULAR FILTRATION RATE 35.3 (>32); POTASSIUM SERUM 4.3 MMOL/L (3.5-5.1); TOTAL PROTEIN 6.2 G/DL (5.7-8.2)
[2022-10-28 16:33] LABS: FERRITIN 72.3 NG/ML (7.3-270.7)
== END ==
LOC: M PLALAB 12:40
PROVIDERS: ATTEND Family Medicine
DX: D50.9 Iron deficiency anemia, unspecified (principal)

== ENCOUNTER → 2022-11-05 | Outpatient (CLI) | payer MEDICARE ==
[~2022-11-05] MED LIST changes: +ALBUTEROL SULFATE 2.5MG/0.5ML INH NEB SOLN INH PRN; +COLE625T; +CVS1CAP2 PO; +EPINEPHrine INJ 1 MG/ML 1ML AMP IM PRN; +FERRIC CARBOXYMALTOSE INJ 750 MG in NS 250 ML (>50kg) IV ONE; +NS 1,000 ML IV SCH; +SUCR1TAB56 PO; +diphenhydrAMINE 50MG/ML VIAL IV PRN; +methylPREDNISolone 125MG 2ML VIAL IV PRN
[2022-11-05 13:50] VITALS: BP 110/68; O2SAT 94
[2022-11-05 14:50] VITALS: BP 98/65; O2SAT 94
[2022-11-05 15:45] VITALS: BP 109/53; O2SAT 93
== END ==
LOC: M INFU 13:11
PROVIDERS: ATTEND Family Medicine
DX: D50.9 Iron deficiency anemia, unspecified (principal); Z88.0 Allergy status to penicillin; Z88.8 Allergy status to other drugs, medicaments and biological substances

== ENCOUNTER → 2022-11-15 | Outpatient (CLI) | payer MEDICARE ==
[~2022-11-15] MED LIST changes: -ALBUTEROL SULFATE 2.5MG/0.5ML INH NEB SOLN INH PRN; -EPINEPHrine INJ 1 MG/ML 1ML AMP IM PRN; -FERRIC CARBOXYMALTOSE INJ 750 MG in NS 250 ML (>50kg) IV ONE; -NS 1,000 ML IV SCH; -diphenhydrAMINE 50MG/ML VIAL IV PRN; -methylPREDNISolone 125MG 2ML VIAL IV PRN
[2022-11-15 18:18] LABS: BASO % 0.4 % (0.0-1.0); EOS # 0.2 10^3/uL (0.0-0.5); EOS % 2.3 % (0.0-3.0); HEMATOCRIT 32.7 % (36.0-47.0); HEMOGLOBIN 9.5 g/dl (12.0-15.5); LYMPH # 1.3 10^3/uL (1.5-5.0); LYMPH % 17.2 % (24.0-44.0); MEAN CORPUSCULAR HEMOGLOBIN 29.8 pg (27.0-33.0); MEAN CORPUSCULAR HGB CONC 29.1 g/dl (32.0-36.5); MEAN CORPUSCULAR VOLUME 102.5 fl (80.0-96.0); MONO # 0.5 10^3/uL (0.0-0.8); MONO % 6.6 % (2.0-8.0); NEUTROPHILS # 5.4 10^3/uL (1.5-8.5); NEUTROPHILS % 73.2 % (36.0-66.0); PLATELET COUNT, AUTOMATED 266 10^3/uL (150-450); RED BLOOD COUNT 3.19 10^6/uL (4.00-5.40); WHITE BLOOD COUNT 7.4 10^3/uL (4.0-10.0)
[2022-11-15 18:37] LABS: ALBUMIN 3.2 G/DL (3.2-5.2); BILIRUBIN,TOTAL 0.2 MG/DL (0.3-1.2); CREATININE FOR GFR 1.07 MG/DL (0.55-1.30); FERRITIN 707.5 NG/ML (7.3-270.7); GLOMERULAR FILTRATION RATE 51.8 (>32); POTASSIUM SERUM 4.3 MMOL/L (3.5-5.1); TOTAL PROTEIN 5.5 G/DL (5.7-8.2)
== END ==
LOC: M PLALAB 14:55
PROVIDERS: ATTEND Physician Assistant Medical
DX: D64.9 Anemia, unspecified (principal); E87.0 Hyperosmolality and hypernatremia

== ENCOUNTER 2022-11-16 11:58 | Outpatient (CLI) | payer MEDICARE ==
[~2022-11-16] VITALS: Ht 160 cm; Wt 70.6 kg
[~2022-11-16 11:58] MED LIST changes: +diphenhydrAMINE 25MG CAP PO SCH
[2022-11-16] MEDS ORDERED: ACETAMINOPHEN 325 MG TAB PO ONE (12:15)
[2022-11-16 12:45] VITALS: BP 138/81; TEMP 97; O2SAT 96
[2022-11-16 13:00] VITALS: BP 137/63; TEMP 97.3; O2SAT 96
[2022-11-16 14:20] VITALS: BP 151/69; TEMP 97.1; O2SAT 97
== END 2022-11-16 14:45 ==
LOC: M INFU 11:58
PROVIDERS: ATTEND Physician Assistant Medical
DX: K92.2 Gastrointestinal hemorrhage, unspecified (principal); D64.9 Anemia, unspecified; Z88.0 Allergy status to penicillin; Z88.8 Allergy status to other drugs, medicaments and biological substances; Z88.1 Allergy status to other antibiotic agents
CPT/HCPCS: 36415; 36430; 86850; 86900; 86901; 86920; P9016

== ENCOUNTER → 2022-11-16 | Outpatient (CLI) | payer MEDICARE | LOC: M LAB 08:59 | PROVIDERS: ATTEND Physician Assistant Medical | DX: K92.2 Gastrointestinal hemorrhage, unspecified (principal); D64.9 Anemia, unspecified; Z88.0 Allergy status to penicillin ==

== ENCOUNTER → 2022-12-14 | Outpatient (CLI) | payer MEDICARE ==
[~2022-12-14] MED LIST changes: -MIRT-62 PO; +MIRT-88 PO; -diphenhydrAMINE 25MG CAP PO SCH
[2022-12-14 18:04] LABS: BASO % 0.7 % (0.0-1.0); EOS # 0.2 10^3/uL (0.0-0.5); EOS % 3.8 % (0.0-3.0); HEMATOCRIT 39.4 % (36.0-47.0); HEMOGLOBIN 11.8 g/dl (12.0-15.5); LYMPH # 2.1 10^3/uL (1.5-5.0); LYMPH % 34.8 % (24.0-44.0); MEAN CORPUSCULAR HEMOGLOBIN 30.2 pg (27.0-33.0); MEAN CORPUSCULAR HGB CONC 29.9 g/dl (32.0-36.5); MEAN CORPUSCULAR VOLUME 100.8 fl (80.0-96.0); MONO # 0.5 10^3/uL (0.0-0.8); MONO % 8.5 % (2.0-8.0); NEUTROPHILS # 3.2 10^3/uL (1.5-8.5); NEUTROPHILS % 51.9 % (36.0-66.0); PLATELET COUNT, AUTOMATED 249 10^3/uL (150-450); RED BLOOD COUNT 3.91 10^6/uL (4.00-5.40); WHITE BLOOD COUNT 6.1 10^3/uL (4.0-10.0)
[2022-12-14 18:30] LABS: ALBUMIN 3.8 G/DL (3.2-5.2); BILIRUBIN,TOTAL 0.2 MG/DL (0.3-1.2); CALCIUM LEVEL 10.2 MG/DL (8.3-10.6); CREATININE FOR GFR 1.33 MG/DL (0.55-1.30); GLOMERULAR FILTRATION RATE 40.3 (>32); POTASSIUM SERUM 4.5 MMOL/L (3.5-5.1); TOTAL PROTEIN 6.3 G/DL (5.7-8.2)
[2022-12-14 18:32] LABS: FERRITIN 351.4 NG/ML (7.3-270.7)
== END ==
LOC: M LAB 17:17
PROVIDERS: ATTEND Family Medicine
DX: D50.9 Iron deficiency anemia, unspecified (principal)

== ENCOUNTER → 2023-01-10 | Outpatient (CLI) | payer MEDICARE ==
[2023-01-10 15:27] LABS: BASO % 0.8 % (0.0-1.0); EOS # 0.2 10^3/uL (0.0-0.5); EOS % 4.4 % (0.0-3.0); HEMATOCRIT 36.4 % (36.0-47.0); HEMOGLOBIN 11.3 g/dl (12.0-15.5); LYMPH # 1.9 10^3/uL (1.5-5.0); LYMPH % 37.9 % (24.0-44.0); MEAN CORPUSCULAR HEMOGLOBIN 30.1 pg (27.0-33.0); MEAN CORPUSCULAR VOLUME 96.8 fl (80.0-96.0); MONO # 0.5 10^3/uL (0.0-0.8); NEUTROPHILS # 2.4 10^3/uL (1.5-8.5); NEUTROPHILS % 47.5 % (36.0-66.0); PLATELET COUNT, AUTOMATED 276 10^3/uL (150-450); RED BLOOD COUNT 3.76 10^6/uL (4.00-5.40)
[2023-01-10 15:31] LABS: ALBUMIN 3.6 G/DL (3.2-5.2); BILIRUBIN,TOTAL 0.3 MG/DL (0.3-1.2); CALCIUM LEVEL 9.8 MG/DL (8.3-10.6); CREATININE FOR GFR 1.16 MG/DL (0.55-1.30); GLOMERULAR FILTRATION RATE 47.2 (>32); POTASSIUM SERUM 4.1 MMOL/L (3.5-5.1); TOTAL PROTEIN 6.3 G/DL (5.7-8.2)
[2023-01-10 15:33] LABS: FERRITIN 193.9 NG/ML (7.3-270.7)
[2023-01-14 15:09] LABS: ERYTHROPOIETIN 16.9 mIU/mL (2.6-18.5); SOLUBLE TRANSFERRIN RECEPTOR 31.2 nmol/L (12.2-27.3)
== END ==
LOC: M LAB 14:37
PROVIDERS: ATTEND Family Medicine
DX: D50.9 Iron deficiency anemia, unspecified (principal)

== ENCOUNTER → 2023-01-24 | Outpatient (CLI) | payer MEDICARE ==
[2023-01-24 18:27] LABS: BASO % 0.6 % (0.0-1.0); EOS # 0.1 10^3/uL (0.0-0.5); EOS % 1.7 % (0.0-3.0); HEMATOCRIT 34.9 % (36.0-47.0); HEMOGLOBIN 10.8 g/dl (12.0-15.5); LYMPH # 2.1 10^3/uL (1.5-5.0); LYMPH % 28.6 % (24.0-44.0); MEAN CORPUSCULAR HEMOGLOBIN 30.4 pg (27.0-33.0); MEAN CORPUSCULAR HGB CONC 30.9 g/dl (32.0-36.5); MEAN CORPUSCULAR VOLUME 98.3 fl (80.0-96.0); MONO # 0.7 10^3/uL (0.0-0.8); NEUTROPHILS # 4.3 10^3/uL (1.5-8.5); NEUTROPHILS % 59.7 % (36.0-66.0); PLATELET COUNT, AUTOMATED 263 10^3/uL (150-450); RED BLOOD COUNT 3.55 10^6/uL (4.00-5.40); WHITE BLOOD COUNT 7.2 10^3/uL (4.0-10.0)
[2023-01-24 18:43] LABS: ALBUMIN 3.7 G/DL (3.2-5.2); ALKALINE PHOSPHATASE 78 U/L (46-116); ALT/SGPT 13 U/L (7.0-40); AST/SGOT 22 U/L (<34); BILIRUBIN,TOTAL 0.3 MG/DL (0.3-1.2); BLOOD UREA NITROGEN 18 MG/DL (9-23); CALCIUM LEVEL 10.2 MG/DL (8.3-10.6); CARBON DIOXIDE LEVEL 29 MMOL/L (20-31); CHLORIDE LEVEL 105 MMOL/L (98-107); CREATININE FOR GFR 0.94 MG/DL (0.55-1.30); GLOMERULAR FILTRATION RATE > 60.0 (>32); GLUCOSE, FASTING 90 MG/DL (74-106); POTASSIUM SERUM 4.2 MMOL/L (3.5-5.1); SODIUM LEVEL 140 MMOL/L (136-145); TOTAL PROTEIN 6.2 G/DL (5.7-8.2)
[2023-01-24 18:45] LABS: FERRITIN 166.2 NG/ML (7.3-270.7)
== END ==
LOC: M LAB 17:41
PROVIDERS: ATTEND Family Medicine
DX: D50.9 Iron deficiency anemia, unspecified (principal)

== ENCOUNTER → 2023-02-09 | Outpatient (CLI) | payer MEDICARE ==
[~2023-02-09] MED LIST changes: +CYAN-1 PO
[2023-02-09 13:57] LABS: BASO % 0.7 % (0.0-1.0); EOS # 0.2 10^3/uL (0.0-0.5); EOS % 4.4 % (0.0-3.0); HEMATOCRIT 32.9 % (36.0-47.0); HEMOGLOBIN 10.3 g/dl (12.0-15.5); LYMPH # 1.6 10^3/uL (1.5-5.0); LYMPH % 28.7 % (24.0-44.0); MEAN CORPUSCULAR HEMOGLOBIN 30.7 pg (27.0-33.0); MEAN CORPUSCULAR HGB CONC 31.3 g/dl (32.0-36.5); MEAN CORPUSCULAR VOLUME 97.9 fl (80.0-96.0); MONO # 0.4 10^3/uL (0.0-0.8); MONO % 7.4 % (2.0-8.0); NEUTROPHILS # 3.2 10^3/uL (1.5-8.5); NEUTROPHILS % 58.6 % (36.0-66.0); PLATELET COUNT, AUTOMATED 242 10^3/uL (150-450); RED BLOOD COUNT 3.36 10^6/uL (4.00-5.40); WHITE BLOOD COUNT 5.4 10^3/uL (4.0-10.0)
[2023-02-09 14:27] LABS: ALBUMIN 3.6 G/DL (3.2-5.2); ALKALINE PHOSPHATASE 81 U/L (46-116); ALT/SGPT 11 U/L (7.0-40); AST/SGOT 18 U/L (<34); BILIRUBIN,TOTAL 0.4 MG/DL (0.3-1.2); BLOOD UREA NITROGEN 13 MG/DL (9-23); CALCIUM LEVEL 10.2 MG/DL (8.3-10.6); CARBON DIOXIDE LEVEL 28 MMOL/L (20-31); CHLORIDE LEVEL 106 MMOL/L (98-107); CREATININE FOR GFR 0.83 MG/DL (0.55-1.30); GLOMERULAR FILTRATION RATE > 60.0 (>32); GLUCOSE, FASTING 108 MG/DL (74-106); POTASSIUM SERUM 4.9 MMOL/L (3.5-5.1); SODIUM LEVEL 140 MMOL/L (136-145)
[2023-02-09 14:28] LABS: FERRITIN 136.1 NG/ML (7.3-270.7)
== END ==
LOC: M LAB 12:47
PROVIDERS: ATTEND Family Medicine
DX: D50.9 Iron deficiency anemia, unspecified (principal)

== ENCOUNTER 2023-02-10 14:55 | Observation (INO) | payer MEDICARE ==
[~2023-02-10] VITALS: Ht 152.4 cm; Wt 65.2 kg
[~2023-02-10 14:55] MED LIST changes: -CYAN-1 PO
[2023-02-10 17:49] LABS: INR 1.11; PARTIAL THROMBOPLASTIN TIME 34.3 SECONDS (24.8-34.2); PROTHROMBIN TIME 13.9 SECONDS (12.5-14.5)
[2023-02-10 17:55] LABS: LIPASE 34 U/L (12-53)
[2023-02-10 17:57] LABS: ALBUMIN 3.5 G/DL (3.2-5.2); ALKALINE PHOSPHATASE 76 U/L (46-116); ALT/SGPT 11 U/L (7.0-40); AST/SGOT 21 U/L (<34); BILIRUBIN,DIRECT 0.1 MG/DL (<0.4); BILIRUBIN,TOTAL 0.3 MG/DL (0.3-1.2); BLOOD UREA NITROGEN 13 MG/DL (9-23); CALCIUM LEVEL 9.6 MG/DL (8.3-10.6); CARBON DIOXIDE LEVEL 28 MMOL/L (20-31); CHLORIDE LEVEL 109 MMOL/L (98-107); CREATININE FOR GFR 0.85 MG/DL (0.55-1.30); GLOMERULAR FILTRATION RATE > 60.0 (>32); GLUCOSE, FASTING 95 MG/DL (74-106); POTASSIUM SERUM 4.5 MMOL/L (3.5-5.1); SODIUM LEVEL 142 MMOL/L (136-145); TOTAL PROTEIN 5.9 G/DL (5.7-8.2)
[2023-02-10 18:21] LABS: BASO % 0.6 % (0.0-1.0); EOS # 0.2 10^3/uL (0.0-0.5); EOS % 3.4 % (0.0-3.0); HEMOGLOBIN 9.8 g/dl (12.0-15.5); LYMPH # 2.2 10^3/uL (1.5-5.0); MEAN CORPUSCULAR HEMOGLOBIN 30.2 pg (27.0-33.0); MEAN CORPUSCULAR HGB CONC 30.6 g/dl (32.0-36.5); MEAN CORPUSCULAR VOLUME 98.5 fl (80.0-96.0); MONO # 0.5 10^3/uL (0.0-0.8); MONO % 7.8 % (2.0-8.0); NEUTROPHILS # 3.6 10^3/uL (1.5-8.5); PLATELET COUNT, AUTOMATED 240 10^3/uL (150-450); RED BLOOD COUNT 3.25 10^6/uL (4.00-5.40); WHITE BLOOD COUNT 6.6 10^3/uL (4.0-10.0)
[2023-02-10] MEDS ORDERED: MED REC IN PROGRESS XX SCH (19:25)
[2023-02-10] MEDS ORDERED: CYAN-1 PO (19:57)
[2023-02-10] MEDS ORDERED: HOME MED LIST COMPLETE! XX SCH (20:00)
[2023-02-10] MEDS: PANTOPRAZOLE 40MG VIAL IV SCH (21:00)
[2023-02-10] MEDS ORDERED: LR 1,000 ML IV SCH (22:40)
[2023-02-10] MEDS ORDERED: ONDANSETRON 4MG 2ML VIAL IV PRN (22:40)
[2023-02-10 23:05] LABS: HEMATOCRIT 30.1 % (36.0-47.0); HEMOGLOBIN 9.4 g/dl (12.0-15.5)
[2023-02-10 23:45] VITALS: BP 151/76; TEMP 97.1; O2SAT 95
[2023-02-11] MEDS ORDERED: ACETAMINOPHEN 650MG SUPP PR ONE (02:00)
[2023-02-11] MEDS ORDERED: diphenhydrAMINE 50MG/ML VIAL IM ONE (03:00)
[2023-02-11 06:05] LABS: HEMATOCRIT 29.4 % (36.0-47.0); HEMOGLOBIN 9.4 g/dl (12.0-15.5)
[2023-02-11 06:29] VITALS: BP 159/65; TEMP 97.8; O2SAT 94
[2023-02-11] MEDS: CYANOCOBALAMIN 500 MCG TAB PO SCH (09:28)
[2023-02-11] MEDS: MULTIVITAMINS/MINERALS THERAP 1 TAB PO SCH (09:28)
[2023-02-11] MEDS: LACTOBACILLUS ACIDOPHILUS CAP (BACID) PO SCH (09:28)
[2023-02-11] MEDS: PANTOPRAZOLE 40MG VIAL IV SCH ×2 (09:28→20:36)
[2023-02-11] MEDS: FERROUS SULFATE 325MG TAB PO SCH (09:29)
[2023-02-11] MEDS: VITAMIN D 1,000 INTERNATIONAL UNITS TABLET PO SCH (09:29)
[2023-02-11] MEDS: MAGNESIUM OXIDE 400MG TAB (MAG-OX) PO SCH ×2 (09:29→20:35)
[2023-02-11] MEDS: SUCRALFATE 1 GM TAB PO SCH ×5 (10:24→20:35)
[2023-02-11] MEDS: COLESEVELAM 625 MG TAB (WELCHOL) PO SCH ×2 (10:24→17:52)
[2023-02-11] MEDS: PARoxetine 20MG TABLET PO SCH (10:24)
[2023-02-11 10:54] LABS: HEMATOCRIT 30.8 % (36.0-47.0); HEMOGLOBIN 9.7 g/dl (12.0-15.5)
[2023-02-11 14:00] VITALS: BP 120/84; TEMP 97.4; O2SAT 94
[2023-02-11] MEDS: HYDROcodone/APAP LIQUID 7.5-325MG 15ML UDC (LORTAB ELIXIR) PO PRN (15:20)
[2023-02-11 19:05] LABS: HEMATOCRIT 30.1 % (36.0-47.0); HEMOGLOBIN 9.5 g/dl (12.0-15.5)
[2023-02-11 20:51] VITALS: BP 128/67; TEMP 98.4; O2SAT 93
[2023-02-11] MEDS ORDERED: MIRTAZAPINE 15 MG TAB PO SCH (21:00)
[2023-02-11] MEDS ORDERED: ROSUVASTATIN 10 MG TAB (CRESTOR) PO SCH (21:00)
[2023-02-11] MEDS ORDERED: diphenhydrAMINE 25MG CAP PO SCH (21:00)
[2023-02-12 00:23] LABS: HEMATOCRIT 30.7 % (36.0-47.0); HEMOGLOBIN 9.6 g/dl (12.0-15.5)
[2023-02-12] MEDS: HYDROcodone/APAP LIQUID 7.5-325MG 15ML UDC (LORTAB ELIXIR) PO PRN ×2 (03:25→12:40)
[2023-02-12 06:00] VITALS: BP 159/73; TEMP 98.3; O2SAT 91
[2023-02-12 06:40] LABS: BASO % 0.4 % (0.0-1.0); EOS # 0.3 10^3/uL (0.0-0.5); EOS % 3.8 % (0.0-3.0); HEMATOCRIT 30.1 % (36.0-47.0); HEMOGLOBIN 9.4 g/dl (12.0-15.5); LYMPH # 1.7 10^3/uL (1.5-5.0); MEAN CORPUSCULAR HGB CONC 31.2 g/dl (32.0-36.5); MEAN CORPUSCULAR VOLUME 96.2 fl (80.0-96.0); MONO # 0.5 10^3/uL (0.0-0.8); MONO % 7.4 % (2.0-8.0); NEUTROPHILS # 4.7 10^3/uL (1.5-8.5); NEUTROPHILS % 65.1 % (36.0-66.0); PLATELET COUNT, AUTOMATED 234 10^3/uL (150-450); RED BLOOD COUNT 3.13 10^6/uL (4.00-5.40); WHITE BLOOD COUNT 7.2 10^3/uL (4.0-10.0)
[2023-02-12 07:09] LABS: ALBUMIN 3.2 G/DL (3.2-5.2); ALKALINE PHOSPHATASE 70 U/L (46-116); ALT/SGPT < 9 U/L (7.0-40); AST/SGOT 16 U/L (<34); BILIRUBIN,TOTAL 0.4 MG/DL (0.3-1.2); BLOOD UREA NITROGEN 10 MG/DL (9-23); CALCIUM LEVEL 9.6 MG/DL (8.3-10.6); CARBON DIOXIDE LEVEL 24 MMOL/L (20-31); CHLORIDE LEVEL 108 MMOL/L (98-107); CREATININE FOR GFR 0.82 MG/DL (0.55-1.30); GLOMERULAR FILTRATION RATE > 60.0 (>32); GLUCOSE, FASTING 103 MG/DL (74-106); POTASSIUM SERUM 3.6 MMOL/L (3.5-5.1); SODIUM LEVEL 141 MMOL/L (136-145); TOTAL PROTEIN 5.2 G/DL (5.7-8.2)
[2023-02-12] MEDS: COLESEVELAM 625 MG TAB (WELCHOL) PO SCH (07:59)
[2023-02-12] MEDS: SUCRALFATE 1 GM TAB PO SCH (07:59)
[2023-02-12] MEDS: VITAMIN D 1,000 INTERNATIONAL UNITS TABLET PO SCH (08:00)
[2023-02-12] MEDS: MAGNESIUM OXIDE 400MG TAB (MAG-OX) PO SCH (08:00)
[2023-02-12] MEDS ORDERED: POTASSIUM CHLORIDE 10MEQ SR TABLET PO SCH (08:00)
[2023-02-12] MEDS: LACTOBACILLUS ACIDOPHILUS CAP (BACID) PO SCH (08:00)
[2023-02-12] MEDS: PARoxetine 20MG TABLET PO SCH (08:00)
[2023-02-12] MEDS: CYANOCOBALAMIN 500 MCG TAB PO SCH (08:00)
[2023-02-12] MEDS: MULTIVITAMINS/MINERALS THERAP 1 TAB PO SCH (08:00)
[2023-02-12] MEDS: FERROUS SULFATE 325MG TAB PO SCH (08:00)
[2023-02-12 08:56] VITALS: BP 159/73
[2023-02-12] MEDS ORDERED: TORSEMIDE 10 MG TABLET PO SCH (09:00)
[2023-02-12] MEDS ORDERED: bisoproloL fumarate 10 MG TAB PO SCH (09:00)
[2023-02-12] MEDS ORDERED: OMEPRAZOLE 20MG CAP PO SCH (09:00)
[2023-02-12 10:00] VITALS: BP 123/60; TEMP 98.1
== END 2023-02-12 12:44 | disposition home or self-care (01) ==
LOC: M ED 14:55 → M ED INP 19:42 → M MS4PR 02-11 00:20 → M MSPAV 02-12 10:03
PROVIDERS: ADMIT Internal Medicine; ATTEND Internal Medicine
DX: K62.5 Hemorrhage of anus and rectum (principal); Z87.19 Personal history of other diseases of the digestive system; K57.30 Diverticulosis of large intestine without perforation or abscess without bleeding; K26.9 Duodenal ulcer, unspecified as acute or chronic, without hemorrhage or perforation; K55.21 Angiodysplasia of colon with hemorrhage; F03.90 Unspecified dementia, unspecified severity, without behavioral disturbance, psychotic disturbance, mood disturbance, and anxiety; I11.0 Hypertensive heart disease with heart failure; I50.32 Chronic diastolic (congestive) heart failure; I27.20 Pulmonary hypertension, unspecified; Z86.711 Personal history of pulmonary embolism; Z86.718 Personal history of other venous thrombosis and embolism; E78.5 Hyperlipidemia, unspecified; G47.33 Obstructive sleep apnea (adult) (pediatric); Z86.73 Personal history of transient ischemic attack (TIA), and cerebral infarction without residual deficits; I65.22 Occlusion and stenosis of left carotid artery; E55.9 Vitamin D deficiency, unspecified; G47.00 Insomnia, unspecified; F32.A Depression, unspecified; F41.9 Anxiety disorder, unspecified; K21.9 Gastro-esophageal reflux disease without esophagitis; K44.9 Diaphragmatic hernia without obstruction or gangrene; Z88.0 Allergy status to penicillin; Z88.6 Allergy status to analgesic agent; Z88.8 Allergy status to other drugs, medicaments and biological substances; Z88.1 Allergy status to other antibiotic agents; Z79.899 Other long term (current) drug therapy; D50.9 Iron deficiency anemia, unspecified
CPT/HCPCS: 36415; 80053; 82248; 82668; 82728; 83520; 83690; 83735; 85014; 85018; 85025; 85610; 85730; 86850; 86900; 86901; 86920; 87635; 93005; 93041; 96361; 96374; 96376; 97161; 97165; 99285; C9113; G0378

== ENCOUNTER → 2023-03-02 | Outpatient (CLI) | payer MEDICARE ==
[~2023-03-02] MED LIST changes: -BIOT50004 PO; +BIOT5CAP8 PO; +CYAN-1 PO; -FLUT50SP17; +FLUTISP; +TOPI-21; -TOPI-254
== END ==
LOC: M RAD 16:45
PROVIDERS: ATTEND Physician Assistant
DX: M17.12 Unilateral primary osteoarthritis, left knee (principal)

== ENCOUNTER → 2023-03-07 | Outpatient (CLI) | payer MEDICARE ==
[2023-03-07 18:26] LABS: RED BLOOD COUNT 3.35 10^6/uL (4.00-5.40); WHITE BLOOD COUNT 6.6 10^3/uL (4.0-10.0)
[2023-03-07 18:27] LABS: BASO % 0.6 % (0.0-1.0); EOS # 0.2 10^3/uL (0.0-0.5); EOS % 2.4 % (0.0-3.0); HEMATOCRIT 32.9 % (36.0-47.0); LYMPH # 1.9 10^3/uL (1.5-5.0); LYMPH % 28.3 % (24.0-44.0); MEAN CORPUSCULAR HEMOGLOBIN 29.9 pg (27.0-33.0); MEAN CORPUSCULAR HGB CONC 30.4 g/dl (32.0-36.5); MEAN CORPUSCULAR VOLUME 98.2 fl (80.0-96.0); MONO # 0.5 10^3/uL (0.0-0.8); MONO % 7.6 % (2.0-8.0); NEUTROPHILS % 60.6 % (36.0-66.0); PLATELET COUNT, AUTOMATED 296 10^3/uL (150-450)
[2023-03-07 18:47] LABS: ALBUMIN 4.2 G/DL (3.2-5.2); BILIRUBIN,TOTAL 0.4 MG/DL (0.3-1.2); CREATININE FOR GFR 1.16 MG/DL (0.55-1.30); FERRITIN 132.9 NG/ML (7.3-270.7); GLOMERULAR FILTRATION RATE 47.2 (>32); POTASSIUM SERUM 4.7 MMOL/L (3.5-5.1); TOTAL PROTEIN 6.7 G/DL (5.7-8.2)
== END ==
LOC: M PLAIMG 16:09
PROVIDERS: ATTEND Family Medicine
DX: M47.814 Spondylosis 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y or radiculopathy, thoracic region (principal); I50.32 Chronic diastolic (congestive) heart failure; D50.9 Iron deficiency anemia, unspecified

== ENCOUNTER → 2023-03-08 | Outpatient (REF) | payer MEDICARE | LOC: M SFHCPLAZ 12:11 | PROVIDERS: ATTEND Family Medicine | DX: D50.9 Iron deficiency anemia, unspecified (principal); I50.32 Chronic diastolic (congestive) heart failure ==

== ENCOUNTER → 2023-03-23 | Outpatient (CLI) | payer MEDICARE ==
[2023-03-23 14:51] LABS: BASO % 0.7 % (0.0-1.0); EOS # 0.4 10^3/uL (0.0-0.5); EOS % 6.3 % (0.0-3.0); HEMATOCRIT 31.9 % (36.0-47.0); HEMOGLOBIN 9.5 g/dl (12.0-15.5); LYMPH # 1.8 10^3/uL (1.5-5.0); LYMPH % 30.2 % (24.0-44.0); MEAN CORPUSCULAR HEMOGLOBIN 29.8 pg (27.0-33.0); MEAN CORPUSCULAR HGB CONC 29.8 g/dl (32.0-36.5); MONO # 0.5 10^3/uL (0.0-0.8); MONO % 7.9 % (2.0-8.0); NEUTROPHILS # 3.2 10^3/uL (1.5-8.5); NEUTROPHILS % 54.7 % (36.0-66.0); PLATELET COUNT, AUTOMATED 268 10^3/uL (150-450); RED BLOOD COUNT 3.19 10^6/uL (4.00-5.40); WHITE BLOOD COUNT 5.8 10^3/uL (4.0-10.0)
[2023-03-23 15:17] LABS: ALBUMIN 3.6 G/DL (3.2-5.2); BILIRUBIN,TOTAL 0.3 MG/DL (0.3-1.2); CREATININE FOR GFR 1.12 MG/DL (0.55-1.30); GLOMERULAR FILTRATION RATE 49.1 (>32); POTASSIUM SERUM 4.8 MMOL/L (3.5-5.1)
[2023-03-23 15:18] LABS: FERRITIN 87.9 NG/ML (7.3-270.7)
== END ==
LOC: M LAB 13:50
PROVIDERS: ATTEND Family Medicine
DX: D50.9 Iron deficiency anemia, unspecified (principal)

== ENCOUNTER → 2023-04-01 | Outpatient (CLI) | payer MEDICARE ==
[~2023-04-01] VITALS: Ht 160 cm; Wt 70.0 kg
[~2023-04-01] MED LIST changes: +ALBUTEROL SULFATE 2.5MG/0.5ML INH NEB SOLN INH PRN; +EPINEPHrine INJ 1 MG/ML 1ML AMP IM PRN; +FERRIC CARBOXYMALTOSE INJ 750 MG in NS 250 ML (>50kg) IV ONE; +NS 1,000 ML IV SCH; +diphenhydrAMINE 50MG/ML VIAL IV PRN; +methylPREDNISolone 125MG 2ML VIAL IV PRN
[2023-04-01 13:00] VITALS: BP 132/76; O2SAT 97
[2023-04-01 14:30] VITALS: BP 138/64; O2SAT 94
== END ==
LOC: M INFU 12:48
PROVIDERS: ATTEND Physician Assistant
DX: D50.9 Iron deficiency anemia, unspecified (principal); Z88.0 Allergy status to penicillin; Z88.1 Allergy status to other antibiotic agents; Z88.6 Allergy status to analgesic agent; Z88.8 Allergy status to other drugs, medicaments and biological substances
CPT/HCPCS: 96365; J1439

== ENCOUNTER → 2023-04-05 | Outpatient (CLI) | payer MEDICARE ==
[~2023-04-05] MED LIST changes: -ALBUTEROL SULFATE 2.5MG/0.5ML INH NEB SOLN INH PRN; -EPINEPHrine INJ 1 MG/ML 1ML AMP IM PRN; -FERRIC CARBOXYMALTOSE INJ 750 MG in NS 250 ML (>50kg) IV ONE; -NS 1,000 ML IV SCH; -diphenhydrAMINE 50MG/ML VIAL IV PRN; -methylPREDNISolone 125MG 2ML VIAL IV PRN
[2023-04-05 15:34] LABS: BASO % 0.9 % (0.0-1.0); EOS # 0.2 10^3/uL (0.0-0.5); EOS % 5.3 % (0.0-3.0); HEMATOCRIT 32.7 % (36.0-47.0); HEMOGLOBIN 9.8 g/dl (12.0-15.5); LYMPH # 1.3 10^3/uL (1.5-5.0); LYMPH % 27.7 % (24.0-44.0); MEAN CORPUSCULAR HEMOGLOBIN 29.6 pg (27.0-33.0); MEAN CORPUSCULAR VOLUME 98.8 fl (80.0-96.0); MONO # 0.3 10^3/uL (0.0-0.8); MONO % 7.3 % (2.0-8.0); NEUTROPHILS # 2.6 10^3/uL (1.5-8.5); NEUTROPHILS % 58.6 % (36.0-66.0); PLATELET COUNT, AUTOMATED 308 10^3/uL (150-450); RED BLOOD COUNT 3.31 10^6/uL (4.00-5.40); WHITE BLOOD COUNT 4.5 10^3/uL (4.0-10.0)
[2023-04-05 16:00] LABS: ALBUMIN 3.7 G/DL (3.2-5.2); BILIRUBIN,TOTAL 0.3 MG/DL (0.3-1.2); CALCIUM LEVEL 9.8 MG/DL (8.3-10.6); CREATININE FOR GFR 1.04 MG/DL (0.55-1.30); GLOMERULAR FILTRATION RATE 53.5 (>32); POTASSIUM SERUM 4.8 MMOL/L (3.5-5.1)
== END ==
LOC: M LAB 14:42
PROVIDERS: ATTEND Family Medicine
DX: D50.9 Iron deficiency anemia, unspecified (principal)

== ENCOUNTER → 2023-04-27 | Outpatient (CLI) | payer MEDICARE ==
[2023-04-27 15:36] LABS: BASO % 0.5 % (0.0-1.0); EOS # 0.3 10^3/uL (0.0-0.5); EOS % 5.6 % (0.0-3.0); HEMATOCRIT 34.7 % (36.0-47.0); HEMOGLOBIN 10.7 g/dl (12.0-15.5); LYMPH # 1.6 10^3/uL (1.5-5.0); LYMPH % 29.5 % (24.0-44.0); MEAN CORPUSCULAR HEMOGLOBIN 30.8 pg (27.0-33.0); MEAN CORPUSCULAR HGB CONC 30.8 g/dl (32.0-36.5); MONO # 0.5 10^3/uL (0.0-0.8); MONO % 8.4 % (2.0-8.0); NEUTROPHILS # 3.1 10^3/uL (1.5-8.5); NEUTROPHILS % 55.8 % (36.0-66.0); PLATELET COUNT, AUTOMATED 214 10^3/uL (150-450); RED BLOOD COUNT 3.47 10^6/uL (4.00-5.40); WHITE BLOOD COUNT 5.5 10^3/uL (4.0-10.0)
[2023-04-27 15:59] LABS: ALBUMIN 3.8 G/DL (3.2-5.2); BILIRUBIN,TOTAL 0.2 MG/DL (0.3-1.2); CALCIUM LEVEL 9.8 MG/DL (8.3-10.6); CREATININE FOR GFR 1.1 MG/DL (0.55-1.30); FERRITIN 335.6 NG/ML (7.3-270.7); GLOMERULAR FILTRATION RATE 50.1 (>32); POTASSIUM SERUM 4.7 MMOL/L (3.5-5.1); TOTAL PROTEIN 6.1 G/DL (5.7-8.2)
== END ==
LOC: M LAB 14:29
PROVIDERS: ATTEND Family Medicine
DX: D50.9 Iron deficiency anemia, unspecified (principal)

== ENCOUNTER 2023-06-03 14:16 | Emergency (ER) | payer MEDICARE ==
[~2023-06-03] VITALS: Ht 157.5 cm; Wt 62.3 kg
[~2023-06-03 14:16] MED LIST changes: -COLE625T
[2023-06-03] MEDS ORDERED: ACET500P3 PO (14:30)
[2023-06-03] MEDS: ANEXSIA, NORCO 7.5MG/325MG TABLET(HYDROCODONE/APAP) PO ONE (18:13)
[2023-06-03] MEDS ORDERED: POTA1TAB24 PO (18:42)
[2023-06-03] MEDS ORDERED: ACET-683 PO (18:52)
[2023-06-03] MEDS ORDERED: HOME MED LIST COMPLETE! XX SCH (18:55)
[2023-06-03 19:07] VITALS: BP 154/81; TEMP 98; O2SAT 93
== END 2023-06-03 20:09 | disposition home or self-care (01) ==
LOC: M ED 14:16
DX: M16.11 Unilateral primary osteoarthritis, right hip (principal); K40.90 Unilateral inguinal hernia, without obstruction or gangrene, not specified as recurrent; I11.0 Hypertensive heart disease with heart failure; I50.22 Chronic systolic (congestive) heart failure; Z88.0 Allergy status to penicillin; Z88.8 Allergy status to other drugs, medicaments and biological substances; Z79.1 Long term (current) use of non-steroidal anti-inflammatories (NSAID); Z79.899 Other long term (current) drug therapy

== ENCOUNTER → 2023-06-09 | Outpatient (REF) | payer MEDICARE ==
[~2023-06-09] MED LIST changes: +ACET-683 PO; +ACET500P3 PO; +POTA1TAB24 PO
== END ==
LOC: M SFHCPLAZ 17:40
PROVIDERS: ATTEND Family Medicine
DX: E21.3 Hyperparathyroidism, unspecified (principal); D50.9 Iron deficiency anemia, unspecified

== ENCOUNTER → 2023-06-14 | Outpatient (CLI) | payer MEDICARE ==
[2023-06-14 18:55] LABS: BASO # 0.1 10^3/uL (0.0-0.2); BASO % 0.7 % (0.0-1.0); EOS # 0.2 10^3/uL (0.0-0.5); EOS % 3.5 % (0.0-3.0); HEMOGLOBIN 11.8 g/dl (12.0-15.5); LYMPH % 29.1 % (24.0-44.0); MEAN CORPUSCULAR HEMOGLOBIN 30.5 pg (27.0-33.0); MEAN CORPUSCULAR HGB CONC 31.1 g/dl (32.0-36.5); MEAN CORPUSCULAR VOLUME 98.2 fl (80.0-96.0); MONO # 0.4 10^3/uL (0.0-0.8); MONO % 5.3 % (2.0-8.0); NEUTROPHILS # 4.2 10^3/uL (1.5-8.5); NEUTROPHILS % 61.3 % (36.0-66.0); PLATELET COUNT, AUTOMATED 272 10^3/uL (150-450); RED BLOOD COUNT 3.87 10^6/uL (4.00-5.40); WHITE BLOOD COUNT 6.8 10^3/uL (4.0-10.0)
[2023-06-14 19:21] LABS: BLOOD UREA NITROGEN 16 MG/DL (9-23); CALCIUM LEVEL 10.3 MG/DL (8.3-10.6); CARBON DIOXIDE LEVEL 30 MMOL/L (20-31); CHLORIDE LEVEL 105 MMOL/L (98-107); CREATININE FOR GFR 0.84 MG/DL (0.55-1.30); GLOMERULAR FILTRATION RATE > 60.0 (>32); GLUCOSE, FASTING 114 MG/DL (74-106); POTASSIUM SERUM 4.5 MMOL/L (3.5-5.1); PTH INTACT 145.7 PG/ML (18.5-88.0); SODIUM LEVEL 139 MMOL/L (136-145)
[2023-06-14 19:22] LABS: FERRITIN 261.6 NG/ML (7.3-270.7)
== END ==
LOC: M PLALAB 15:20
PROVIDERS: ATTEND Family Medicine
DX: I50.32 Chronic diastolic (congestive) heart failure (principal); D50.9 Iron deficiency anemia, unspecified; E21.3 Hyperparathyroidism, unspecified

== ENCOUNTER → 2023-06-21 | Outpatient (REF) | payer MEDICARE ==
[2023-06-21 18:47] LABS: BASO % 0.2 % (0.0-1.0); HEMATOCRIT 35.6 % (36.0-47.0); HEMOGLOBIN 10.9 g/dl (12.0-15.5); LYMPH # 1.1 10^3/uL (1.5-5.0); LYMPH % 17.4 % (24.0-44.0); MEAN CORPUSCULAR HEMOGLOBIN 30.2 pg (27.0-33.0); MEAN CORPUSCULAR HGB CONC 30.6 g/dl (32.0-36.5); MEAN CORPUSCULAR VOLUME 98.6 fl (80.0-96.0); MONO # 0.3 10^3/uL (0.0-0.8); MONO % 4.9 % (2.0-8.0); NEUTROPHILS # 5.1 10^3/uL (1.5-8.5); PLATELET COUNT, AUTOMATED 288 10^3/uL (150-450); RED BLOOD COUNT 3.61 10^6/uL (4.00-5.40); WHITE BLOOD COUNT 6.6 10^3/uL (4.0-10.0)
[2023-06-21 19:14] LABS: ALBUMIN 3.9 G/DL (3.2-5.2); BILIRUBIN,TOTAL 0.2 MG/DL (0.3-1.2); CALCIUM LEVEL 10.6 MG/DL (8.3-10.6); CREATININE FOR GFR 1.35 MG/DL (0.55-1.30); GLOMERULAR FILTRATION RATE 39.6 (>32); POTASSIUM SERUM 4.9 MMOL/L (3.5-5.1); TOTAL PROTEIN 6.6 G/DL (5.7-8.2)
[2023-06-21 19:16] LABS: FERRITIN 280.3 NG/ML (7.3-270.7)
== END ==
LOC: M LABDRAWP 17:32
PROVIDERS: ATTEND Family Medicine
DX: D50.9 Iron deficiency anemia, unspecified (principal); I50.32 Chronic diastolic (congestive) heart failure

== ENCOUNTER → 2023-07-06 | Outpatient (REF) | payer MEDICARE ==
[~2023-07-06] MED LIST changes: +DIPH1TAB81 PO; -DIPH2.5T15 PO
[2023-07-07 11:35] LABS: CLOSTRIDIUM DIFFICILE PCR POSITIVE (NEGATIVE)
== END ==
LOC: M LAB REF 09:43
PROVIDERS: ATTEND Internal Medicine Gastroenterology
DX: R19.7 Diarrhea, unspecified (principal); A04.71 Enterocolitis due to Clostridium difficile, recurrent

== ENCOUNTER 2023-07-21 15:08 | Inpatient (IN) | payer MEDICARE ==
[~2023-07-21] VITALS: Ht 157.5 cm; Wt 62.0 kg
[2023-07-21] MEDS: NS 1,000 ML IV SCH (16:04)
[2023-07-21] MEDS: MORPHINE 2 MG/ML 1ML VIAL IV ONE (16:04)
[2023-07-21 16:09] LABS: BASO # 0.1 10^3/uL (0.0-0.2); BASO % 0.4 % (0.0-1.0); EOS # 0.1 10^3/uL (0.0-0.5); EOS % 0.9 % (0.0-3.0); HEMATOCRIT 42.6 % (36.0-47.0); HEMOGLOBIN 12.8 g/dl (12.0-15.5); LYMPH # 3.1 10^3/uL (1.5-5.0); LYMPH % 19.1 % (24.0-44.0); MEAN CORPUSCULAR HEMOGLOBIN 31.2 pg (27.0-33.0); MEAN CORPUSCULAR VOLUME 103.9 fl (80.0-96.0); MONO # 0.7 10^3/uL (0.0-0.8); MONO % 4.4 % (2.0-8.0); NEUTROPHILS # 11.9 10^3/uL (1.5-8.5); NEUTROPHILS % 74.3 % (36.0-66.0); PLATELET COUNT, AUTOMATED 340 10^3/uL (150-450); WHITE BLOOD COUNT 16.1 10^3/uL (4.0-10.0)
[2023-07-21 16:23] LABS: INR 1.13; PARTIAL THROMBOPLASTIN TIME 47.8 SECONDS (24.8-34.2); PROTHROMBIN TIME 14.2 SECONDS (12.5-14.5)
[2023-07-21 16:31] LABS: LIPASE 70 U/L (12-53)
[2023-07-21 16:33] LABS: ALBUMIN 3.8 G/DL (3.2-5.2); ALKALINE PHOSPHATASE 123 U/L (46-116); ALT/SGPT 22 U/L (7.0-40); AST/SGOT 40 U/L (<34); BILIRUBIN,DIRECT < 0.1 MG/DL (<0.4); BILIRUBIN,TOTAL 0.2 MG/DL (0.3-1.2); BLOOD UREA NITROGEN 26 MG/DL (9-23); CALCIUM LEVEL 11.3 MG/DL (8.3-10.6); CARBON DIOXIDE LEVEL 18 MMOL/L (20-31); CHLORIDE LEVEL 108 MMOL/L (98-107); CREATININE FOR GFR 1.42 MG/DL (0.55-1.30); GLOMERULAR FILTRATION RATE 37.3 (>32); GLUCOSE, FASTING 229 MG/DL (74-106); POTASSIUM SERUM 5.3 MMOL/L (3.5-5.1); SODIUM LEVEL 140 MMOL/L (136-145); TOTAL PROTEIN 7.1 G/DL (5.7-8.2)
[2023-07-21 16:39] LABS: CPK CREATINE PHOSPHOKINASE 74 U/L (34-145)
[2023-07-21 17:41] LABS: CK-MB VALUE MASS 2.2 NG/ML (<3.6)
[2023-07-21 17:42] LABS: MB/CK RELATIVE INDEX 2.75 (< OR =4)
[2023-07-21] MEDS: DEXTROSE 50% 50ML SYRINGE IV STA (18:01)
[2023-07-21] MEDS: HumuLIN R (REGULAR) INSULIN (NovoLIN R) **100U/ML** PER UNIT IV ONE (18:01)
[2023-07-21] MEDS: ONDANSETRON 4MG 2ML VIAL IV ONE (18:17)
[2023-07-21] MEDS: GASTROGRAFIN SOLUTION 30ML PO SCH (18:17)
[2023-07-21] MEDS: LevoFLOXacin IV 750 MG in IV 1 EA IV ONE (18:21)
[2023-07-21] MEDS ORDERED: ISOVUE-370 76% 100ML VIAL As Ordered ONE (19:31)
[2023-07-21 19:45] LABS: POTASSIUM SERUM 5.1 MMOL/L (3.5-5.1)
[2023-07-21 19:52] LABS: CK-MB VALUE MASS 2.9 NG/ML (<3.6)
[2023-07-21 19:53] LABS: MB/CK RELATIVE INDEX 4.2 (< OR =4)
[2023-07-21] MEDS ORDERED: VANC250C3 PO (19:55)
[2023-07-21] MEDS ORDERED: ANTI2CAP PO (20:02)
[2023-07-21 20:43] LABS: BASO % 0.1 % (0.0-1.0); HEMATOCRIT 39.3 % (36.0-47.0); HEMOGLOBIN 11.8 g/dl (12.0-15.5); LYMPH # 0.5 10^3/uL (1.5-5.0); LYMPH % 3.2 % (24.0-44.0); MEAN CORPUSCULAR HEMOGLOBIN 31.5 pg (27.0-33.0); MEAN CORPUSCULAR VOLUME 104.8 fl (80.0-96.0); MONO # 1.5 10^3/uL (0.0-0.8); NEUTROPHILS # 14.1 10^3/uL (1.5-8.5); NEUTROPHILS % 87.3 % (36.0-66.0); PLATELET COUNT, AUTOMATED 265 10^3/uL (150-450); RED BLOOD COUNT 3.75 10^6/uL (4.00-5.40); WHITE BLOOD COUNT 16.1 10^3/uL (4.0-10.0)
[2023-07-21] MEDS ORDERED: MED REC COMMENT (22:53)
[2023-07-21] MEDS ORDERED: HOME MED LIST COMPLETE! XX SCH (22:55)
[2023-07-21] MEDS ORDERED: oxyCODONE 5MG TAB PO PRN (23:45)
[2023-07-21] MEDS ORDERED: GLUCOSE 4 GM CHEW PO PRN (23:45)
[2023-07-21] MEDS ORDERED: GLUCAGON INJ 1MG VIAL SC PRN (23:45)
[2023-07-21] MEDS ORDERED: ONDANSETRON 4MG 2ML VIAL IV PRN (23:45)
[2023-07-21] MEDS ORDERED: DEXTROSE 50% 50ML SYRINGE IV PRN (23:45)
[2023-07-22] MEDS: LR 500 ML IV SCH (00:10)
[2023-07-22 03:04] VITALS: BP 121/58; TEMP 98.8; O2SAT 94
[2023-07-22] MEDS: FIDAXOMICIN 200 MG TAB (DIFICID) PO SCH (03:22)
[2023-07-22] MEDS: MIRTAZAPINE 15 MG TAB PO SCH (03:22)
[2023-07-22] MEDS: oxyCODONE 5MG TAB PO PRN (03:30)
[2023-07-22 06:17] LABS: CALCIUM LEVEL 9.9 MG/DL (8.3-10.6); CREATININE FOR GFR 1.15 MG/DL (0.55-1.30); GLOMERULAR FILTRATION RATE 47.6 (>32); POTASSIUM SERUM 4.4 MMOL/L (3.5-5.1)
[2023-07-22] MEDS ORDERED: HEPARIN SOD (PORCINE) 5000UNITS/ML 1ML VIAL/SYRINGE IV ONE ×2 (07:25→07:45)
[2023-07-22] MEDS ORDERED: HEPARIN SOD (PORCINE) 5000UNITS/ML 1ML VIAL/SYRINGE IV PRN ×2 (07:25→07:45)
[2023-07-22] MEDS ORDERED: HEPARIN DRIP 25,000 UNITS in IV 1 EA IV SCH ×2 (07:25→07:45)
[2023-07-22 08:19] VITALS: BP 104/70; TEMP 97.7; O2SAT 89
[2023-07-22] MEDS: LEVEMIR (INSULIN DETEMIR) 1 UNITS/0.01ML SC SCH (08:33)
[2023-07-22] MEDS: PANTOPRAZOLE 40MG TAB (PROTONIX) PO SCH (08:36)
[2023-07-22] MEDS: SUCRALFATE 1 GM TAB PO SCH (08:36)
[2023-07-22] MEDS: bisoproloL fumarate 10 MG TAB PO SCH (08:36)
[2023-07-22] MEDS: PARoxetine 20MG TABLET PO SCH (08:36)
[2023-07-22] MEDS ORDERED: HEPARIN SOD (PORCINE) 5000UNITS/ML 1ML VIAL/SYRINGE SC SCH (09:00)
[2023-07-22 09:25] LABS: CLOSTRIDIUM DIFFICILE PCR NEGATIVE (NEGATIVE)
[2023-07-22] MEDS: ENOXAPARIN 60MG/0.6ML SYRINGE (J1650 PER 10MG) SC SCH (10:49)
[2023-07-22 12:01] VITALS: BP 111/56; TEMP 97.4; O2SAT 90
[2023-07-22 16:01] VITALS: BP 142/70; TEMP 98.1; O2SAT 90
[2023-07-22] MEDS: INSULIN LISPRO (NovoLOG) PER UNIT SC SCH ×3 (18:23→20:50)
[2023-07-22 18:39] VITALS: BP 113/52; TEMP 99.8; O2SAT 92
[2023-07-22] MEDS: ROSUVASTATIN 10 MG TAB (CRESTOR) PO SCH (20:50)
[2023-07-22 22:57] VITALS: BP 139/67; TEMP 97.7; O2SAT 92
[2023-07-23 04:02] VITALS: BP 119/65; TEMP 97.9; O2SAT 94
[2023-07-23 05:54] LABS: BASO % 0.3 % (0.0-1.0); EOS # 0.3 10^3/uL (0.0-0.5); EOS % 2.4 % (0.0-3.0); HEMATOCRIT 31.5 % (36.0-47.0); HEMOGLOBIN 9.9 g/dl (12.0-15.5); LYMPH # 1.5 10^3/uL (1.5-5.0); LYMPH % 13.1 % (24.0-44.0); MEAN CORPUSCULAR HGB CONC 31.4 g/dl (32.0-36.5); MEAN CORPUSCULAR VOLUME 98.7 fl (80.0-96.0); MONO # 0.8 10^3/uL (0.0-0.8); MONO % 6.8 % (2.0-8.0); NEUTROPHILS % 77.1 % (36.0-66.0); PLATELET COUNT, AUTOMATED 242 10^3/uL (150-450); RED BLOOD COUNT 3.19 10^6/uL (4.00-5.40); WHITE BLOOD COUNT 11.7 10^3/uL (4.0-10.0)
[2023-07-23 06:20] LABS: CALCIUM LEVEL 9.7 MG/DL (8.3-10.6); CREATININE FOR GFR 0.95 MG/DL (0.55-1.30); GLOMERULAR FILTRATION RATE 59.4 (>32); MAGNESIUM LEVEL 2.2 MG/DL (1.8-2.4); POTASSIUM SERUM 4.1 MMOL/L (3.5-5.1)
[2023-07-23 07:42] VITALS: BP 150/68; TEMP 97.4; O2SAT 96
[2023-07-23 12:16] VITALS: BP 133/63; TEMP 97.7; O2SAT 93
[2023-07-23 15:52] LABS: FOLATE 19.2 NG/ML (>5.4)
[2023-07-23 16:28] VITALS: BP 123/67; TEMP 97.5; O2SAT 90
[2023-07-23 20:00] VITALS: BP 129/66; TEMP 97.7; O2SAT 97
[2023-07-23 23:47] VITALS: BP 133/68; TEMP 97.2; O2SAT 93
[2023-07-24 03:56] VITALS: BP 104/54; TEMP 97.4; O2SAT 92
[2023-07-24 06:59] LABS: BASO % 0.4 % (0.0-1.0); EOS # 0.2 10^3/uL (0.0-0.5); EOS % 2.6 % (0.0-3.0); HEMATOCRIT 31.7 % (36.0-47.0); HEMOGLOBIN 9.7 g/dl (12.0-15.5); LYMPH % 24.1 % (24.0-44.0); MEAN CORPUSCULAR HGB CONC 30.6 g/dl (32.0-36.5); MEAN CORPUSCULAR VOLUME 101.3 fl (80.0-96.0); MONO # 0.7 10^3/uL (0.0-0.8); MONO % 8.2 % (2.0-8.0); NEUTROPHILS # 5.4 10^3/uL (1.5-8.5); NEUTROPHILS % 64.1 % (36.0-66.0); PLATELET COUNT, AUTOMATED 263 10^3/uL (150-450); RED BLOOD COUNT 3.13 10^6/uL (4.00-5.40); WHITE BLOOD COUNT 8.4 10^3/uL (4.0-10.0)
[2023-07-24 07:20] LABS: BLOOD UREA NITROGEN 14 MG/DL (9-23); CALCIUM LEVEL 9.3 MG/DL (8.3-10.6); CARBON DIOXIDE LEVEL 24 MMOL/L (20-31); CHLORIDE LEVEL 114 MMOL/L (98-107); CREATININE FOR GFR 0.92 MG/DL (0.55-1.30); GLOMERULAR FILTRATION RATE > 60.0 (>32); GLUCOSE, FASTING 90 MG/DL (74-106); MAGNESIUM LEVEL 1.9 MG/DL (1.8-2.4); POTASSIUM SERUM 4.2 MMOL/L (3.5-5.1); SODIUM LEVEL 146 MMOL/L (136-145)
[2023-07-24 07:39] VITALS: BP 114/55; TEMP 97.1; O2SAT 93
[2023-07-24 11:55] VITALS: BP 136/86; TEMP 97; O2SAT 95
[2023-07-24 18:41] VITALS: BP 115/53; TEMP 98.3; O2SAT 93
[2023-07-25 06:05] LABS: BASO % 0.4 % (0.0-1.0); EOS # 0.3 10^3/uL (0.0-0.5); EOS % 3.5 % (0.0-3.0); HEMATOCRIT 31.2 % (36.0-47.0); HEMOGLOBIN 9.7 g/dl (12.0-15.5); LYMPH % 27.3 % (24.0-44.0); MEAN CORPUSCULAR HEMOGLOBIN 30.8 pg (27.0-33.0); MEAN CORPUSCULAR HGB CONC 31.1 g/dl (32.0-36.5); MONO # 0.7 10^3/uL (0.0-0.8); MONO % 9.5 % (2.0-8.0); NEUTROPHILS # 4.2 10^3/uL (1.5-8.5); NEUTROPHILS % 58.7 % (36.0-66.0); PLATELET COUNT, AUTOMATED 251 10^3/uL (150-450); RED BLOOD COUNT 3.15 10^6/uL (4.00-5.40); WHITE BLOOD COUNT 7.2 10^3/uL (4.0-10.0)
[2023-07-25 06:28] LABS: BLOOD UREA NITROGEN 13 MG/DL (9-23); CALCIUM LEVEL 9.4 MG/DL (8.3-10.6); CARBON DIOXIDE LEVEL 25 MMOL/L (20-31); CHLORIDE LEVEL 111 MMOL/L (98-107); CREATININE FOR GFR 0.83 MG/DL (0.55-1.30); GLOMERULAR FILTRATION RATE > 60.0 (>32); GLUCOSE, FASTING 92 MG/DL (74-106); MAGNESIUM LEVEL 1.7 MG/DL (1.8-2.4); SODIUM LEVEL 142 MMOL/L (136-145)
[2023-07-25 06:37] VITALS: BP 141/67; TEMP 97.2; O2SAT 94
[2023-07-25] MEDS: MAG SULF 1GM/100ML (MAG RUN) 1 GM in IV 1 EA IV SCH (08:00)
[2023-07-25 08:33] VITALS: BP 154/80; TEMP 98.3; O2SAT 100
[2023-07-25 08:54] VITALS: BP 154/80
[2023-07-25] MEDS: ENOXAPARIN 40MG/0.4ML SYRINGE (J1650 PER 10MG) SC SCH (08:54)
[2023-07-25] MEDS: MAGNESIUM OXIDE 400MG TAB (MAG-OX) PO ONE (08:55)
[2023-07-25] MEDS: ACETAMINOPHEN TAB 650MG DOSE (2X325MG) PO PRN (09:56)
[2023-07-25] MEDS ORDERED: FIDA200TA PO (11:24)
[2023-07-25] MEDS ORDERED: DIFI200T PO (11:24)
[2023-07-25 12:37] LABS: HEMOGLOBIN A1c 5.8 % (4.0-6.0)
== END 2023-07-25 15:01 | disposition home or self-care (01) | DRG 871 ==
LOC: M ED 15:08 → EDBD 15:08 → M ED INP 23:30 → ENRESERV 07-22 01:56 → M PCU 07-22 02:54
PROVIDERS: ADMIT Internal Medicine; ATTEND Student in an Organized Health Care Education/Training Program
PROC: B246ZZZ Ultrasonography of Right and Left Heart (ICD-10-PCS; principal; 2023-07-22)
DX: A41.9 Sepsis, unspecified organism (principal); I26.99 Other pulmonary embolism without acute cor pulmonale; A04.71 Enterocolitis due to Clostridium difficile, recurrent; F11.20 Opioid dependence, uncomplicated; N17.9 Acute kidney failure, unspecified; E87.20 Acidosis, unspecified; R65.20 Severe sepsis without septic shock; R09.02 Hypoxemia; I27.20 Pulmonary hypertension, unspecified; F32.A Depression, unspecified; F03.90 Unspecified dementia, unspecified severity, without behavioral disturbance, psychotic disturbance, mood disturbance, and anxiety; K44.9 Diaphragmatic hernia without obstruction or gangrene; M81.0 Age-related osteoporosis without current pathological fracture; E83.42 Hypomagnesemia; D50.9 Iron deficiency anemia, unspecified; K52.9 Noninfective gastroenteritis and colitis, unspecified; Z79.899 Other long term (current) drug therapy; Z86.73 Personal history of transient ischemic attack (TIA), and cerebral infarction without residual deficits; Z95.828 Presence of other vascular implants and grafts; Z88.0 Allergy status to penicillin; Z88.1 Allergy status to other antibiotic agents; Z88.8 Allergy status to other drugs, medicaments and biological substances

== ENCOUNTER 2023-07-25 15:23 | Outpatient (CLI) | payer MEDICARE ==
[~2023-07-25] VITALS: Ht 157.5 cm; Wt 62.0 kg
[~2023-07-25 15:23] MED LIST changes: +ANTI2CAP PO; +FIDA200TA PO; +MED REC COMMENT; +VANC250C3 PO
[2023-07-25 15:47] VITALS: BP 113/74; O2SAT 94
[2023-07-25] MEDS: BEZLOTOXUMAB in NS 100 ML OVER 1 HR IV ONE (16:11)
[2023-07-25 17:25] VITALS: BP 150/76; O2SAT 96
== END 2023-07-25 17:25 ==
LOC: M INFU 15:23
PROVIDERS: ATTEND Student in an Organized Health Care Education/Training Program
DX: A04.71 Enterocolitis due to Clostridium difficile, recurrent (principal); K52.9 Noninfective gastroenteritis and colitis, unspecified; Z88.0 Allergy status to penicillin; Z88.1 Allergy status to other antibiotic agents; Z88.8 Allergy status to other drugs, medicaments and biological substances

== ENCOUNTER → 2023-08-08 | Outpatient (CLI) | payer MEDICARE ==
[~2023-08-08] MED LIST changes: -ROSU40TA4 PO; +ROSU40TA63 PO
[2023-08-08 18:27] LABS: BASO # 0.1 10^3/uL (0.0-0.2); BASO % 0.9 % (0.0-1.0); EOS # 0.2 10^3/uL (0.0-0.5); EOS % 3.6 % (0.0-3.0); HEMATOCRIT 37.8 % (36.0-47.0); HEMOGLOBIN 11.5 g/dl (12.0-15.5); LYMPH # 1.4 10^3/uL (1.5-5.0); LYMPH % 21.5 % (24.0-44.0); MEAN CORPUSCULAR HEMOGLOBIN 30.7 pg (27.0-33.0); MEAN CORPUSCULAR HGB CONC 30.4 g/dl (32.0-36.5); MEAN CORPUSCULAR VOLUME 101.1 fl (80.0-96.0); MONO # 0.5 10^3/uL (0.0-0.8); MONO % 7.6 % (2.0-8.0); NEUTROPHILS # 4.3 10^3/uL (1.5-8.5); NEUTROPHILS % 65.9 % (36.0-66.0); PLATELET COUNT, AUTOMATED 315 10^3/uL (150-450); RED BLOOD COUNT 3.74 10^6/uL (4.00-5.40); WHITE BLOOD COUNT 6.5 10^3/uL (4.0-10.0)
[2023-08-08 18:39] LABS: ERYTHROCYTE SEDIMENTATION RATE 29 mm/hr (0-30)
[2023-08-08 18:48] LABS: C REACTIVE PROTEIN QUANTITATIV < 0.40 MG/DL (<1.0)
[2023-08-08 18:50] LABS: ALBUMIN 3.3 G/DL (3.2-5.2); ALKALINE PHOSPHATASE 88 U/L (46-116); ALT/SGPT 16 U/L (7.0-40); AST/SGOT 18 U/L (<34); BILIRUBIN,TOTAL 0.3 MG/DL (0.3-1.2); BLOOD UREA NITROGEN 22 MG/DL (9-23); CALCIUM LEVEL 10.1 MG/DL (8.3-10.6); CARBON DIOXIDE LEVEL 27 MMOL/L (20-31); CHLORIDE LEVEL 108 MMOL/L (98-107); CREATININE FOR GFR 1.02 MG/DL (0.55-1.30); GLOMERULAR FILTRATION RATE 54.7 (>32); GLUCOSE, FASTING 112 MG/DL (74-106); POTASSIUM SERUM 5.1 MMOL/L (3.5-5.1); SODIUM LEVEL 142 MMOL/L (136-145)
[2023-08-08 18:54] LABS: FERRITIN 312.2 NG/ML (7.3-270.7)
== END ==
LOC: M PLALAB 16:10
PROVIDERS: ATTEND Family Medicine
DX: D50.9 Iron deficiency anemia, unspecified (principal); I50.32 Chronic diastolic (congestive) heart failure; A04.71 Enterocolitis due to Clostridium difficile, recurrent

== ENCOUNTER 2023-08-24 16:36 | Inpatient (IN) | payer MEDICARE ==
[~2023-08-24] VITALS: Ht 157.5 cm; Wt 61.1 kg
[~2023-08-24 16:36] MED LIST changes: +ONDA-282 PO; -ONDA4TAB6 PO
[2023-08-24] MEDS: NS 1,000 ML IV SCH (17:10)
[2023-08-24 17:42] LABS: BASO # 0.1 10^3/uL (0.0-0.2); BASO % 0.5 % (0.0-1.0); EOS # 0.1 10^3/uL (0.0-0.5); EOS % 0.7 % (0.0-3.0); HEMATOCRIT 36.9 % (36.0-47.0); HEMOGLOBIN 11.2 g/dl (12.0-15.5); LYMPH # 1.4 10^3/uL (1.5-5.0); LYMPH % 13.4 % (24.0-44.0); MEAN CORPUSCULAR HGB CONC 30.4 g/dl (32.0-36.5); MEAN CORPUSCULAR VOLUME 102.2 fl (80.0-96.0); MONO # 0.7 10^3/uL (0.0-0.8); MONO % 7.1 % (2.0-8.0); NEUTROPHILS # 8.2 10^3/uL (1.5-8.5); NEUTROPHILS % 77.8 % (36.0-66.0); PLATELET COUNT, AUTOMATED 306 10^3/uL (150-450); RED BLOOD COUNT 3.61 10^6/uL (4.00-5.40); WHITE BLOOD COUNT 10.5 10^3/uL (4.0-10.0)
[2023-08-24 18:03] LABS: ALBUMIN 3.4 G/DL (3.2-5.2); ALKALINE PHOSPHATASE 91 U/L (46-116); ALT/SGPT 20 U/L (7.0-40); AST/SGOT 37 U/L (<34); BILIRUBIN,DIRECT < 0.1 MG/DL (<0.4); BILIRUBIN,TOTAL 0.2 MG/DL (0.3-1.2); BLOOD UREA NITROGEN 23 MG/DL (9-23); CARBON DIOXIDE LEVEL 24 MMOL/L (20-31); CHLORIDE LEVEL 109 MMOL/L (98-107); CREATININE FOR GFR 1.15 MG/DL (0.55-1.30); GLOMERULAR FILTRATION RATE 47.6 (>32); GLUCOSE, FASTING 114 MG/DL (74-106); POTASSIUM SERUM 5.1 MMOL/L (3.5-5.1); SODIUM LEVEL 139 MMOL/L (136-145); TOTAL PROTEIN 5.9 G/DL (5.7-8.2)
[2023-08-24 18:38] LABS: MAGNESIUM LEVEL 2.2 MG/DL (1.8-2.4)
[2023-08-24] MEDS: NS 500 ML IV ONE (19:00)
[2023-08-24] MEDS ORDERED: EXCETAB44 PO (19:35)
[2023-08-24] MEDS ORDERED: HOME MED LIST COMPLETE! XX SCH (19:40)
[2023-08-24] MEDS ORDERED: ONDANSETRON 4MG 2ML VIAL IV PRN (21:15)
[2023-08-24 23:53] VITALS: BP 157/83; TEMP 97.3; O2SAT 93
[2023-08-25] MEDS: diphenhydrAMINE 25MG CAP PO SCH (00:48)
[2023-08-25] MEDS: ROSUVASTATIN 10 MG TAB (CRESTOR) PO SCH (00:49)
[2023-08-25] MEDS: NS 1,000 ML IV SCH (00:50)
[2023-08-25] MEDS: MIRTAZAPINE 15 MG TAB PO SCH (00:50)
[2023-08-25] MEDS: ACETAMINOPHEN TAB 650MG DOSE (2X325MG) PO PRN (03:13)
[2023-08-25] MEDS: FIDAXOMICIN 200 MG TAB (DIFICID) PO SCH (03:14)
[2023-08-25 03:58] VITALS: BP 146/81; TEMP 97.9; O2SAT 95
[2023-08-25 07:05] LABS: HEMATOCRIT 32.3 % (36.0-47.0); HEMOGLOBIN 9.9 g/dl (12.0-15.5); MEAN CORPUSCULAR HEMOGLOBIN 31.1 pg (27.0-33.0); MEAN CORPUSCULAR HGB CONC 30.7 g/dl (32.0-36.5); MEAN CORPUSCULAR VOLUME 101.6 fl (80.0-96.0); PLATELET COUNT, AUTOMATED 261 10^3/uL (150-450); RED BLOOD COUNT 3.18 10^6/uL (4.00-5.40); WHITE BLOOD COUNT 8.7 10^3/uL (4.0-10.0)
[2023-08-25 07:15] LABS: ALBUMIN 2.6 G/DL (3.2-5.2); ALKALINE PHOSPHATASE 81 U/L (46-116); ALT/SGPT 14 U/L (7.0-40); AST/SGOT 18 U/L (<34); BILIRUBIN,TOTAL 0.2 MG/DL (0.3-1.2); BLOOD UREA NITROGEN 16 MG/DL (9-23); CALCIUM LEVEL 9.1 MG/DL (8.3-10.6); CARBON DIOXIDE LEVEL 22 MMOL/L (20-31); CHLORIDE LEVEL 113 MMOL/L (98-107); CREATININE FOR GFR 0.84 MG/DL (0.55-1.30); GLOMERULAR FILTRATION RATE > 60.0 (>32); GLUCOSE, FASTING 97 MG/DL (74-106); POTASSIUM SERUM 4.1 MMOL/L (3.5-5.1); SODIUM LEVEL 141 MMOL/L (136-145); TOTAL PROTEIN 4.8 G/DL (5.7-8.2)
[2023-08-25] MEDS: FERROUS SULFATE 325MG TAB PO SCH (08:56)
[2023-08-25] MEDS: COLESEVELAM 625 MG TAB (WELCHOL) PO SCH (08:56)
[2023-08-25] MEDS: PARoxetine 20MG TABLET PO SCH (08:56)
[2023-08-25] MEDS: PANTOPRAZOLE 40MG TAB (PROTONIX) PO SCH (08:57)
[2023-08-25] MEDS: PERCOCET 5MG/325MG TAB PO PRN (08:57)
[2023-08-25] MEDS: SUCRALFATE 1 GM TAB PO SCH (08:58)
[2023-08-25] MEDS: bisoproloL fumarate 10 MG TAB PO SCH (09:00)
[2023-08-25] MEDS: CHOLESTYRAMINE 4GM PWD PKT PO SCH (09:00)
[2023-08-25 10:00] VITALS: BP 113/64; TEMP 97.7; O2SAT 94
[2023-08-25 14:00] VITALS: BP 110/58; TEMP 97.9; O2SAT 90
[2023-08-25 18:00] VITALS: BP 107/58; TEMP 97.5; O2SAT 91
[2023-08-25 21:14] VITALS: BP 124/83; TEMP 97.9; O2SAT 94
[2023-08-25] MEDS: LOMOTIL 2.5MG/0.025MG TABLET PO SCH (22:11)
[2023-08-26] VITALS (13 sets, daily range): BP systolic 112–122; BP diastolic 55–73; TEMP 97.2–98.4; O2SAT 87–99
[2023-08-26 06:50] LABS: MEAN CORPUSCULAR HEMOGLOBIN 30.9 pg (27.0-33.0); MEAN CORPUSCULAR HGB CONC 30.3 g/dl (32.0-36.5); MEAN CORPUSCULAR VOLUME 101.9 fl (80.0-96.0); PLATELET COUNT, AUTOMATED 276 10^3/uL (150-450); RED BLOOD COUNT 3.24 10^6/uL (4.00-5.40); WHITE BLOOD COUNT 7.2 10^3/uL (4.0-10.0)
[2023-08-26 07:17] LABS: BLOOD UREA NITROGEN 10 MG/DL (9-23); CALCIUM LEVEL 9.2 MG/DL (8.3-10.6); CARBON DIOXIDE LEVEL 21 MMOL/L (20-31); CHLORIDE LEVEL 112 MMOL/L (98-107); CREATININE FOR GFR 0.68 MG/DL (0.55-1.30); GLOMERULAR FILTRATION RATE > 60.0 (>32); GLUCOSE, FASTING 95 MG/DL (74-106); SODIUM LEVEL 140 MMOL/L (136-145)
[2023-08-26] MEDS: MAGNESIUM CITRATE 300ML BTL PO ONE (09:32)
[2023-08-26] MEDS ORDERED: FECAL MICROBIOTA TRANSPLANT PREPARATION 35ML BAG XX ONE ×2 (12:00→19:00)
[2023-08-26] MEDS ORDERED: propofoL 200 MG/20 ML VIAL As Ordered ONE (15:22)
[2023-08-26] MEDS ORDERED: LIDOCAINE 2% 100MG/5ML SDV (FOR ANES.) As Ordered ONE (15:22)
[2023-08-26] MEDS ORDERED: PHENYLephrine 500MCG 5ML (100MCG/ML) SYRINGE As Ordered ONE (15:29)
[2023-08-27] VITALS (16 sets, daily range): BP systolic 96–130; BP diastolic 63–91; TEMP 97.5–97.9; O2SAT 88–97
[2023-08-27 06:06] LABS: HEMATOCRIT 32.5 % (36.0-47.0); HEMOGLOBIN 9.9 g/dl (12.0-15.5); MEAN CORPUSCULAR HEMOGLOBIN 30.8 pg (27.0-33.0); MEAN CORPUSCULAR HGB CONC 30.5 g/dl (32.0-36.5); MEAN CORPUSCULAR VOLUME 101.2 fl (80.0-96.0); PLATELET COUNT, AUTOMATED 260 10^3/uL (150-450); RED BLOOD COUNT 3.21 10^6/uL (4.00-5.40); WHITE BLOOD COUNT 5.7 10^3/uL (4.0-10.0)
[2023-08-27 06:35] LABS: BLOOD UREA NITROGEN 6 MG/DL (9-23); CALCIUM LEVEL 9.6 MG/DL (8.3-10.6); CARBON DIOXIDE LEVEL 23 MMOL/L (20-31); CHLORIDE LEVEL 115 MMOL/L (98-107); CREATININE FOR GFR 0.74 MG/DL (0.55-1.30); GLOMERULAR FILTRATION RATE > 60.0 (>32); GLUCOSE, FASTING 90 MG/DL (74-106); POTASSIUM SERUM 3.8 MMOL/L (3.5-5.1); SODIUM LEVEL 143 MMOL/L (136-145)
[2023-08-27] MEDS: FAMOTIDINE 20 MG TAB PO SCH (20:47)
[2023-08-28] VITALS (14 sets, daily range): BP systolic 83–128; BP diastolic 43–90; TEMP 97.7–98.4; O2SAT 86–99
[2023-08-28 06:24] LABS: BASO % 0.6 % (0.0-1.0); EOS # 0.5 10^3/uL (0.0-0.5); EOS % 7.4 % (0.0-3.0); HEMATOCRIT 32.6 % (36.0-47.0); HEMOGLOBIN 9.9 g/dl (12.0-15.5); LYMPH # 1.8 10^3/uL (1.5-5.0); LYMPH % 26.6 % (24.0-44.0); MEAN CORPUSCULAR HEMOGLOBIN 30.6 pg (27.0-33.0); MEAN CORPUSCULAR HGB CONC 30.4 g/dl (32.0-36.5); MEAN CORPUSCULAR VOLUME 100.6 fl (80.0-96.0); MONO # 0.8 10^3/uL (0.0-0.8); MONO % 11.4 % (2.0-8.0); NEUTROPHILS # 3.6 10^3/uL (1.5-8.5); NEUTROPHILS % 53.5 % (36.0-66.0); PLATELET COUNT, AUTOMATED 248 10^3/uL (150-450); RED BLOOD COUNT 3.24 10^6/uL (4.00-5.40); WHITE BLOOD COUNT 6.7 10^3/uL (4.0-10.0)
[2023-08-28 07:00] LABS: BLOOD UREA NITROGEN 9 MG/DL (9-23); CALCIUM LEVEL 9.6 MG/DL (8.3-10.6); CARBON DIOXIDE LEVEL 24 MMOL/L (20-31); CHLORIDE LEVEL 114 MMOL/L (98-107); CREATININE FOR GFR 0.81 MG/DL (0.55-1.30); GLOMERULAR FILTRATION RATE > 60.0 (>32); GLUCOSE, FASTING 88 MG/DL (74-106); MAGNESIUM LEVEL 1.8 MG/DL (1.8-2.4); POTASSIUM SERUM 4.1 MMOL/L (3.5-5.1); SODIUM LEVEL 143 MMOL/L (136-145)
[2023-08-29] VITALS (15 sets, daily range): BP systolic 102–133; BP diastolic 49–68; TEMP 96.6–98.2; O2SAT 88–97
[2023-08-29 05:48] LABS: BASO % 0.4 % (0.0-1.0); EOS # 0.4 10^3/uL (0.0-0.5); HEMATOCRIT 31.3 % (36.0-47.0); HEMOGLOBIN 9.7 g/dl (12.0-15.5); LYMPH % 28.8 % (24.0-44.0); MEAN CORPUSCULAR HEMOGLOBIN 30.4 pg (27.0-33.0); MEAN CORPUSCULAR VOLUME 98.1 fl (80.0-96.0); MONO # 0.8 10^3/uL (0.0-0.8); MONO % 11.1 % (2.0-8.0); NEUTROPHILS # 3.6 10^3/uL (1.5-8.5); NEUTROPHILS % 53.3 % (36.0-66.0); PLATELET COUNT, AUTOMATED 241 10^3/uL (150-450); RED BLOOD COUNT 3.19 10^6/uL (4.00-5.40); WHITE BLOOD COUNT 6.8 10^3/uL (4.0-10.0)
[2023-08-29 06:15] LABS: BLOOD UREA NITROGEN 14 MG/DL (9-23); CALCIUM LEVEL 10.1 MG/DL (8.3-10.6); CARBON DIOXIDE LEVEL 24 MMOL/L (20-31); CHLORIDE LEVEL 110 MMOL/L (98-107); CREATININE FOR GFR 0.73 MG/DL (0.55-1.30); GLOMERULAR FILTRATION RATE > 60.0 (>32); GLUCOSE, FASTING 103 MG/DL (74-106); MAGNESIUM LEVEL 1.7 MG/DL (1.8-2.4); POTASSIUM SERUM 4.1 MMOL/L (3.5-5.1); SODIUM LEVEL 140 MMOL/L (136-145)
[2023-08-29] MEDS: MAG SULF 1GM/100ML (MAG RUN) 1 GM in IV 1 EA IV ONE (09:49)
[2023-08-30] VITALS (9 sets, daily range): BP systolic 109–142; BP diastolic 56–78; TEMP 97–98.4; O2SAT 91–98
[2023-08-30 06:05] LABS: BASO % 0.7 % (0.0-1.0); EOS # 0.4 10^3/uL (0.0-0.5); HEMATOCRIT 30.8 % (36.0-47.0); HEMOGLOBIN 9.6 g/dl (12.0-15.5); LYMPH # 1.9 10^3/uL (1.5-5.0); LYMPH % 31.7 % (24.0-44.0); MEAN CORPUSCULAR HEMOGLOBIN 30.7 pg (27.0-33.0); MEAN CORPUSCULAR HGB CONC 31.2 g/dl (32.0-36.5); MEAN CORPUSCULAR VOLUME 98.4 fl (80.0-96.0); MONO # 0.6 10^3/uL (0.0-0.8); MONO % 10.7 % (2.0-8.0); NEUTROPHILS # 2.9 10^3/uL (1.5-8.5); NEUTROPHILS % 49.4 % (36.0-66.0); PLATELET COUNT, AUTOMATED 253 10^3/uL (150-450); RED BLOOD COUNT 3.13 10^6/uL (4.00-5.40); WHITE BLOOD COUNT 5.9 10^3/uL (4.0-10.0)
[2023-08-30 06:27] LABS: BLOOD UREA NITROGEN 12 MG/DL (9-23); CALCIUM LEVEL 10.3 MG/DL (8.3-10.6); CARBON DIOXIDE LEVEL 28 MMOL/L (20-31); CHLORIDE LEVEL 108 MMOL/L (98-107); CREATININE FOR GFR 0.72 MG/DL (0.55-1.30); GLOMERULAR FILTRATION RATE > 60.0 (>32); GLUCOSE, FASTING 93 MG/DL (74-106); MAGNESIUM LEVEL 1.6 MG/DL (1.8-2.4); POTASSIUM SERUM 4.1 MMOL/L (3.5-5.1); SODIUM LEVEL 140 MMOL/L (136-145)
[2023-08-30] MEDS: MAG SULF 1GM/100ML (MAG RUN) 1 GM in IV 1 EA IV SCH (09:21)
[2023-08-30] MEDS ORDERED: ISOVUE-370 76% 100ML VIAL As Ordered ONE (12:49)
[2023-08-30] MEDS ORDERED: HEPARIN SOD (PORCINE) 5000UNITS/ML 1ML VIAL/SYRINGE IV PRN (17:20)
[2023-08-30 17:55] LABS: HEMATOCRIT 34.6 % (36.0-47.0); HEMOGLOBIN 10.6 g/dl (12.0-15.5); MEAN CORPUSCULAR HEMOGLOBIN 30.3 pg (27.0-33.0); MEAN CORPUSCULAR HGB CONC 30.6 g/dl (32.0-36.5); MEAN CORPUSCULAR VOLUME 98.9 fl (80.0-96.0); PLATELET COUNT, AUTOMATED 275 10^3/uL (150-450); WHITE BLOOD COUNT 7.2 10^3/uL (4.0-10.0)
[2023-08-30 18:21] LABS: INR 1.07; PARTIAL THROMBOPLASTIN TIME 27.5 SECONDS (24.8-34.2); PROTHROMBIN TIME 13.6 SECONDS (12.5-14.5)
[2023-08-30] MEDS: HEPARIN DRIP 25,000 UNITS in IV 1 EA IV SCH (18:30)
[2023-08-31] VITALS (10 sets, daily range): BP systolic 112–131; BP diastolic 54–88; TEMP 96.6–98.5; O2SAT 91–97
[2023-08-31 06:00] LABS: BASO % 0.7 % (0.0-1.0); EOS # 0.4 10^3/uL (0.0-0.5); EOS % 6.8 % (0.0-3.0); HEMOGLOBIN 9.4 g/dl (12.0-15.5); LYMPH # 1.7 10^3/uL (1.5-5.0); LYMPH % 28.9 % (24.0-44.0); MEAN CORPUSCULAR HEMOGLOBIN 30.2 pg (27.0-33.0); MEAN CORPUSCULAR HGB CONC 31.3 g/dl (32.0-36.5); MEAN CORPUSCULAR VOLUME 96.5 fl (80.0-96.0); MONO # 0.7 10^3/uL (0.0-0.8); MONO % 12.4 % (2.0-8.0); NEUTROPHILS % 50.9 % (36.0-66.0); PLATELET COUNT, AUTOMATED 246 10^3/uL (150-450); RED BLOOD COUNT 3.11 10^6/uL (4.00-5.40); WHITE BLOOD COUNT 5.9 10^3/uL (4.0-10.0)
[2023-08-31 07:35] LABS: ALBUMIN 2.3 G/DL (3.2-5.2); ALKALINE PHOSPHATASE 67 U/L (46-116); ALT/SGPT 15 U/L (7.0-40); AST/SGOT 20 U/L (<34); BILIRUBIN,TOTAL 0.2 MG/DL (0.3-1.2); BLOOD UREA NITROGEN 13 MG/DL (9-23); CALCIUM LEVEL 9.8 MG/DL (8.3-10.6); CARBON DIOXIDE LEVEL 28 MMOL/L (20-31); CHLORIDE LEVEL 108 MMOL/L (98-107); CREATININE FOR GFR 0.72 MG/DL (0.55-1.30); GLOMERULAR FILTRATION RATE > 60.0 (>32); GLUCOSE, FASTING 120 MG/DL (74-106); MAGNESIUM LEVEL 1.8 MG/DL (1.8-2.4); POTASSIUM SERUM 3.4 MMOL/L (3.5-5.1); SODIUM LEVEL 142 MMOL/L (136-145); TOTAL PROTEIN 4.6 G/DL (5.7-8.2)
[2023-08-31] MEDS: POTASSIUM CHLORIDE 10MEQ SR TABLET PO SCH (10:24)
[2023-09-01] VITALS (7 sets, daily range): BP systolic 102–117; BP diastolic 54–70; TEMP 96.6–97.7; O2SAT 93–98
[2023-09-01 04:19] LABS: HEMATOCRIT 30.5 % (36.0-47.0); HEMOGLOBIN 9.4 g/dl (12.0-15.5); MEAN CORPUSCULAR HEMOGLOBIN 30.4 pg (27.0-33.0); MEAN CORPUSCULAR HGB CONC 30.8 g/dl (32.0-36.5); MEAN CORPUSCULAR VOLUME 98.7 fl (80.0-96.0); PLATELET COUNT, AUTOMATED 263 10^3/uL (150-450); RED BLOOD COUNT 3.09 10^6/uL (4.00-5.40); WHITE BLOOD COUNT 5.4 10^3/uL (4.0-10.0)
[2023-09-01 05:08] LABS: BLOOD UREA NITROGEN 13 MG/DL (9-23); CALCIUM LEVEL 9.8 MG/DL (8.3-10.6); CARBON DIOXIDE LEVEL 30 MMOL/L (20-31); CHLORIDE LEVEL 109 MMOL/L (98-107); CREATININE FOR GFR 0.76 MG/DL (0.55-1.30); GLOMERULAR FILTRATION RATE > 60.0 (>32); GLUCOSE, FASTING 96 MG/DL (74-106); POTASSIUM SERUM 4.5 MMOL/L (3.5-5.1); SODIUM LEVEL 142 MMOL/L (136-145)
[2023-09-01] MEDS ORDERED: FAMO20TA PO (09:58)
[2023-09-01] MEDS ORDERED: FIDA200TA PO (09:58)
[2023-09-01] MEDS ORDERED: DIPH1TAB81 PO (09:58)
== END 2023-09-01 10:15 | disposition short-term general hospital (02) | DRG 371 ==
LOC: EDBD 16:36 → M ED 16:36 → M ED INP 21:10 → M MSPAV 23:52
PROVIDERS: ADMIT Preventive Medicine Undersea and Hyperbaric Medicine; ATTEND Hospitalist
PROC: 3E0H8KZ Introduction of Other Diagnostic Substance into Lower GI, Via Natural or Artificial Opening Endoscopic (ICD-10-PCS; principal; 2023-08-26 15:00)
PROC: B246ZZZ Ultrasonography of Right and Left Heart (ICD-10-PCS; 2023-08-30)
DX: A04.71 Enterocolitis due to Clostridium difficile, recurrent (principal); I26.99 Other pulmonary embolism without acute cor pulmonale; F11.20 Opioid dependence, uncomplicated; F33.9 Major depressive disorder, recurrent, unspecified; I50.32 Chronic diastolic (congestive) heart failure; F03.90 Unspecified dementia, unspecified severity, without behavioral disturbance, psychotic disturbance, mood disturbance, and anxiety; I27.20 Pulmonary hypertension, unspecified; F32.A Depression, unspecified; K44.9 Diaphragmatic hernia without obstruction or gangrene; D50.9 Iron deficiency anemia, unspecified; I71.20 Thoracic aortic aneurysm, without rupture, unspecified; F41.1 Generalized anxiety disorder; F51.04 Psychophysiologic insomnia; K21.9 Gastro-esophageal reflux disease without esophagitis; I11.0 Hypertensive heart disease with heart failure; M81.0 Age-related osteoporosis without current pathological fracture; E78.5 Hyperlipidemia, unspecified; E53.8 Deficiency of other specified B group vitamins; E21.3 Hyperparathyroidism, unspecified; E55.9 Vitamin D deficiency, unspecified; Z95.5 Presence of coronary angioplasty implant and graft; Z96.651 Presence of right artificial knee joint; Z86.711 Personal history of pulmonary embolism; Z90.49 Acquired absence of other specified parts of digestive tract; Z88.0 Allergy status to penicillin; Z86.718 Personal history of other venous thrombosis and embolism; Z79.899 Other long term (current) drug therapy; Z88.1 Allergy status to other antibiotic agents; Z88.6 Allergy status to analgesic agent; Z88.8 Allergy status to other drugs, medicaments and biological substances; Z87.11 Personal history of peptic ulcer disease

== ENCOUNTER → 2023-09-12 | Outpatient (CLI) | payer MEDICARE ==
[2023-09-12 15:27] LABS: BASO # 0.1 10^3/uL (0.0-0.2); BASO % 1.2 % (0.0-1.0); EOS # 0.4 10^3/uL (0.0-0.5); EOS % 6.5 % (0.0-3.0); HEMATOCRIT 36.3 % (36.0-47.0); HEMOGLOBIN 10.9 g/dl (12.0-15.5); LYMPH # 2.2 10^3/uL (1.5-5.0); MEAN CORPUSCULAR HEMOGLOBIN 30.7 pg (27.0-33.0); MEAN CORPUSCULAR VOLUME 102.3 fl (80.0-96.0); MONO # 0.4 10^3/uL (0.0-0.8); MONO % 7.6 % (2.0-8.0); NEUTROPHILS # 2.6 10^3/uL (1.5-8.5); NEUTROPHILS % 45.5 % (36.0-66.0); PLATELET COUNT, AUTOMATED 308 10^3/uL (150-450); RED BLOOD COUNT 3.55 10^6/uL (4.00-5.40); WHITE BLOOD COUNT 5.7 10^3/uL (4.0-10.0)
[2023-09-12 15:56] LABS: C REACTIVE PROTEIN QUANTITATIV < 0.40 MG/DL (<1.0)
[2023-09-12 15:58] LABS: ALBUMIN 3.7 G/DL (3.2-5.2); ALKALINE PHOSPHATASE 75 U/L (46-116); ALT/SGPT 15 U/L (7.0-40); AST/SGOT 13 U/L (<34); BILIRUBIN,TOTAL 0.3 MG/DL (0.3-1.2); BLOOD UREA NITROGEN 22 MG/DL (9-23); CALCIUM LEVEL 10.5 MG/DL (8.3-10.6); CARBON DIOXIDE LEVEL 27 MMOL/L (20-31); CHLORIDE LEVEL 111 MMOL/L (98-107); CREATININE FOR GFR 0.98 MG/DL (0.55-1.30); GLOMERULAR FILTRATION RATE 57.3 (>32); GLUCOSE, FASTING 92 MG/DL (74-106); IRON (FE) 37 UG/DL (50-170); PERCENT SATURATION 12.5 % (13.2-45.0); POTASSIUM SERUM 4.7 MMOL/L (3.5-5.1); SODIUM LEVEL 141 MMOL/L (136-145); TOTAL IRON BINDING CAPACITY 295 UG/DL (250-425); TOTAL PROTEIN 6.2 G/DL (5.7-8.2)
[2023-09-12 16:00] LABS: FERRITIN 286.7 NG/ML (7.3-270.7)
[2023-09-12 16:03] LABS: ERYTHROCYTE SEDIMENTATION RATE 24 mm/hr (0-30)
== END ==
LOC: M PLALAB 11:49
PROVIDERS: ATTEND Family Medicine
DX: D50.9 Iron deficiency anemia, unspecified (principal); I50.32 Chronic diastolic (congestive) heart failure; A04.71 Enterocolitis due to Clostridium difficile, recurrent

== ENCOUNTER → 2023-09-12 | Outpatient (REF) | payer MEDICARE | LOC: M SFHCPLAZ 11:33 | PROVIDERS: ATTEND Family Medicine | DX: D50.9 Iron deficiency anemia, unspecified (principal); I50.32 Chronic diastolic (congestive) heart failure; A04.71 Enterocolitis due to Clostridium difficile, recurrent ==

== ENCOUNTER → 2023-10-05 | Outpatient (REF) | payer MEDICARE ==
[2023-10-05 21:24] LABS: CLOSTRIDIUM DIFFICILE PCR POSITIVE (NEGATIVE)
== END ==
LOC: M SHH 17:22
PROVIDERS: ATTEND Internal Medicine Infectious Disease
DX: A04.71 Enterocolitis due to Clostridium difficile, recurrent (principal)

== ENCOUNTER 2023-11-01 16:35 | Emergency (ER) | payer MEDICARE ==
[~2023-11-01] VITALS: Ht 152.4 cm; Wt 58.5 kg
[2023-11-01 16:35] VITALS: TEMP 96.8
[2023-11-01 20:36] LABS: BASO % 0.7 % (0.0-1.0); EOS # 0.2 10^3/uL (0.0-0.5); EOS % 3.2 % (0.0-3.0); HEMATOCRIT 39.2 % (36.0-47.0); LYMPH # 2.3 10^3/uL (1.5-5.0); LYMPH % 39.4 % (24.0-44.0); MEAN CORPUSCULAR HEMOGLOBIN 30.8 pg (27.0-33.0); MEAN CORPUSCULAR HGB CONC 30.6 g/dl (32.0-36.5); MEAN CORPUSCULAR VOLUME 100.8 fl (80.0-96.0); MONO # 0.4 10^3/uL (0.0-0.8); NEUTROPHILS # 2.8 10^3/uL (1.5-8.5); NEUTROPHILS % 49.5 % (36.0-66.0); PLATELET COUNT, AUTOMATED 234 10^3/uL (150-450); RED BLOOD COUNT 3.89 10^6/uL (4.00-5.40); WHITE BLOOD COUNT 5.7 10^3/uL (4.0-10.0)
[2023-11-01 20:51] LABS: INR 1.13; PARTIAL THROMBOPLASTIN TIME 35.4 SECONDS (24.8-34.2); PROTHROMBIN TIME 14.1 SECONDS (12.5-14.5)
[2023-11-01 21:05] LABS: ALBUMIN 3.7 G/DL (3.2-5.2); BILIRUBIN,TOTAL 0.3 MG/DL (0.3-1.2); CALCIUM LEVEL 9.9 MG/DL (8.3-10.6); CREATININE FOR GFR 0.94 MG/DL (0.55-1.30); POTASSIUM SERUM 4.5 MMOL/L (3.5-5.1); TOTAL PROTEIN 6.4 G/DL (5.7-8.2)
[2023-11-01] MEDS ORDERED: ISOVUE-370 76% 100ML VIAL As Ordered ONE (22:48)
[2023-11-01] MEDS: NS 1,000 ML IV ONE (23:21)
[2023-11-01] MEDS: KETOROLAC 30 MG/ML 1ML VIAL IV ONE (23:21)
[2023-11-02 00:34] VITALS: BP 154/55
[2023-11-02 00:39] VITALS: O2SAT 93
== END 2023-11-02 00:51 | disposition home or self-care (01) ==
LOC: M ED 16:35
DX: R51.9 Headache, unspecified (principal); I44.0 Atrioventricular block, first degree; I11.0 Hypertensive heart disease with heart failure; E78.5 Hyperlipidemia, unspecified; K21.9 Gastro-esophageal reflux disease without esophagitis; Z88.0 Allergy status to penicillin; Z88.1 Allergy status to other antibiotic agents; Z88.8 Allergy status to other drugs, medicaments and biological substances; Z79.1 Long term (current) use of non-steroidal anti-inflammatories (NSAID); Z79.810 Long term (current) use of selective estrogen receptor modulators (SERMs); Z79.899 Other long term (current) drug therapy
CPT/HCPCS: 70450; 70496; 80053; 85025; 85610; 85730; 93005; 96361; 96374; 99285; J1885; Q9967

== ENCOUNTER → 2023-11-15 | Outpatient (CLI) | payer MEDICARE ==
[2023-11-15 18:24] LABS: BASO % 0.7 % (0.0-1.0); EOS # 0.2 10^3/uL (0.0-0.5); EOS % 2.9 % (0.0-3.0); HEMOGLOBIN 11.9 g/dl (12.0-15.5); LYMPH # 1.9 10^3/uL (1.5-5.0); LYMPH % 32.3 % (24.0-44.0); MEAN CORPUSCULAR HEMOGLOBIN 30.5 pg (27.0-33.0); MEAN CORPUSCULAR HGB CONC 30.5 g/dl (32.0-36.5); MONO # 0.4 10^3/uL (0.0-0.8); MONO % 6.1 % (2.0-8.0); NEUTROPHILS # 3.3 10^3/uL (1.5-8.5); NEUTROPHILS % 56.8 % (36.0-66.0); PLATELET COUNT, AUTOMATED 277 10^3/uL (150-450); WHITE BLOOD COUNT 5.9 10^3/uL (4.0-10.0)
== END ==
LOC: M PLALAB 16:06
PROVIDERS: ATTEND Family Medicine
DX: Z86.711 Personal history of pulmonary embolism (principal)

== ENCOUNTER → 2023-12-08 | Outpatient (CLI) | payer MEDICARE ==
[~2023-12-08] MED LIST changes: +GABA-1490 PO; -GABA600T4 PO; -ROSU40TA63 PO; +ROSU40TA81 PO
== END ==
LOC: M WHC 11:49
PROVIDERS: ATTEND Family Medicine
DX: Z12.31 Encounter for screening mammogram for malignant neoplasm of breast (principal); R92.313 Mammographic fatty tissue density, bilateral breasts

== ENCOUNTER → 2024-01-04 | Outpatient (CLI) | payer MEDICARE ==
[~2024-01-04] MED LIST changes: +VANC250C10 PO; -VANC250C3 PO
[2024-01-04 18:10] LABS: BASO # 0.1 10^3/uL (0.0-0.2); BASO % 0.5 % (0.0-1.0); EOS # 0.3 10^3/uL (0.0-0.5); EOS % 2.8 % (0.0-3.0); HEMATOCRIT 35.9 % (36.0-47.0); LYMPH # 1.9 10^3/uL (1.5-5.0); LYMPH % 17.8 % (24.0-44.0); MEAN CORPUSCULAR HEMOGLOBIN 31.9 pg (27.0-33.0); MEAN CORPUSCULAR HGB CONC 30.6 g/dl (32.0-36.5); MEAN CORPUSCULAR VOLUME 104.1 fl (80.0-96.0); MONO # 0.7 10^3/uL (0.0-0.8); MONO % 6.9 % (2.0-8.0); NEUTROPHILS # 7.5 10^3/uL (1.5-8.5); NEUTROPHILS % 71.6 % (36.0-66.0); PLATELET COUNT, AUTOMATED 209 10^3/uL (150-450); RED BLOOD COUNT 3.45 10^6/uL (4.00-5.40); WHITE BLOOD COUNT 10.4 10^3/uL (4.0-10.0)
[2024-01-04 18:48] LABS: ALBUMIN 3.6 G/DL (3.2-5.2); ALKALINE PHOSPHATASE 71 U/L (46-116); ALT/SGPT 12 U/L (7.0-40); AST/SGOT 15 U/L (<34); BILIRUBIN,TOTAL 0.4 MG/DL (0.3-1.2); BLOOD UREA NITROGEN 18 MG/DL (9-23); CARBON DIOXIDE LEVEL 28 MMOL/L (20-31); CHLORIDE LEVEL 110 MMOL/L (98-107); CREATININE FOR GFR 0.86 MG/DL (0.55-1.30); GLOMERULAR FILTRATION RATE > 60.0 (>32); GLUCOSE, FASTING 84 MG/DL (74-106); POTASSIUM SERUM 4.7 MMOL/L (3.5-5.1); SODIUM LEVEL 140 MMOL/L (136-145); TOTAL PROTEIN 6.2 G/DL (5.7-8.2)
[2024-01-04 18:49] LABS: FERRITIN 195.1 NG/ML (7.3-270.7)
== END ==
LOC: M PLALAB 15:53
PROVIDERS: ATTEND Family Medicine
DX: D50.9 Iron deficiency anemia, unspecified (principal)

== ENCOUNTER → 2024-01-05 | Outpatient (CLI) | payer MEDICARE | LOC: M RAD 13:44 | DX: R19.00 Intra-abdominal and pelvic swelling, mass and lump, unspecified site (principal) ==

== ENCOUNTER → 2024-01-06 | Outpatient (CLI) | payer MEDICARE | LOC: M RAD 08:26 | DX: R19.00 Intra-abdominal and pelvic swelling, mass and lump, unspecified site (principal) ==

== ENCOUNTER → 2024-02-08 | Outpatient (REF) | payer MEDICARE ==
[~2024-02-08] MED LIST changes: -CYCL5TAB PO; +CYCL5TAB4 PO; -VANC250C10 PO; +VANC250C12 PO
== END ==
LOC: M LAB REF 14:13
DX: K52.9 Noninfective gastroenteritis and colitis, unspecified (principal)

== ENCOUNTER → 2024-02-16 | Outpatient (CLI) | payer MEDICARE ==
[2024-02-16 19:48] LABS: BASO # 0.1 10^3/uL (0.0-0.2); BASO % 0.6 % (0.0-1.0); EOS # 0.2 10^3/uL (0.0-0.5); EOS % 2.5 % (0.0-3.0); HEMATOCRIT 37.2 % (36.0-47.0); HEMOGLOBIN 11.1 g/dl (12.0-15.5); LYMPH # 2.3 10^3/uL (1.5-5.0); MEAN CORPUSCULAR HEMOGLOBIN 30.1 pg (27.0-33.0); MEAN CORPUSCULAR HGB CONC 29.8 g/dl (32.0-36.5); MEAN CORPUSCULAR VOLUME 100.8 fl (80.0-96.0); MONO # 0.5 10^3/uL (0.0-0.8); MONO % 5.8 % (2.0-8.0); NEUTROPHILS # 5.2 10^3/uL (1.5-8.5); NEUTROPHILS % 62.7 % (36.0-66.0); PLATELET COUNT, AUTOMATED 311 10^3/uL (150-450); RED BLOOD COUNT 3.69 10^6/uL (4.00-5.40); WHITE BLOOD COUNT 8.3 10^3/uL (4.0-10.0)
[2024-02-16 19:56] LABS: HEMOGLOBIN A1c 5.2 % (4.0-6.0)
[2024-02-16 20:07] LABS: ALBUMIN 3.7 G/DL (3.2-5.2); BILIRUBIN,TOTAL 0.3 MG/DL (0.3-1.2); CALCIUM LEVEL 10.6 MG/DL (8.3-10.6); CREATININE FOR GFR 1.11 MG/DL (0.55-1.30); GLOMERULAR FILTRATION RATE 49.5 (>32); LDL CHOLESTEROL 58.2 MG/DL (<100); PERCENT SATURATION 13.9 % (13.2-45.0); POTASSIUM SERUM 5.1 MMOL/L (3.5-5.1); TOTAL PROTEIN 6.7 G/DL (5.7-8.2)
[2024-02-16 20:14] LABS: FERRITIN 248.8 NG/ML (7.3-270.7)
[2024-02-16 21:40] LABS: PTH INTACT 164.9 PG/ML (18.5-88.0)
== END ==
LOC: M PLALAB 15:42
PROVIDERS: ATTEND Family Medicine
DX: D50.9 Iron deficiency anemia, unspecified (principal); E78.00 Pure hypercholesterolemia, unspecified; I50.32 Chronic diastolic (congestive) heart failure; E55.9 Vitamin D deficiency, unspecified; E78.5 Hyperlipidemia, unspecified; R73.01 Impaired fasting glucose

== ENCOUNTER → 2024-02-16 | Outpatient (CLI) | payer MEDICARE | LOC: M PLAIMG 16:00 | PROVIDERS: ATTEND Registered Nurse | DX: J20.9 Acute bronchitis, unspecified (principal); E78.00 Pure hypercholesterolemia, unspecified; D50.9 Iron deficiency anemia, unspecified; I50.32 Chronic diastolic (congestive) heart failure; E55.9 Vitamin D deficiency, unspecified; E78.5 Hyperlipidemia, unspecified; R73.01 Impaired fasting glucose ==

== ENCOUNTER → 2024-02-21 | Outpatient (CLI) | payer MEDICARE | LOC: M RAD 11:55 → M SFHCPLAZ 11:55 | DX: R51.9 Headache, unspecified (principal); R19.7 Diarrhea, unspecified; Z53.9 Procedure and treatment not carried out, unspecified reason ==

== ENCOUNTER → 2024-03-06 | Outpatient (REF) | payer MEDICARE | LOC: M SFHCPLAZ 15:56 | DX: J44.1 Chronic obstructive pulmonary disease with (acute) exacerbation (principal) ==

== ENCOUNTER 2024-04-21 17:40 | Emergency (ER) | payer MEDICARE ==
[~2024-04-21] VITALS: Ht 127 cm; Wt 55.5 kg
[~2024-04-21 17:40] MED LIST changes: +ACET-1599 PO; -EXCETAB44 PO
[2024-04-21 19:26] LABS: BASO % 0.4 % (0.0-1.0); EOS # 0.1 10^3/uL (0.0-0.5); EOS % 0.9 % (0.0-3.0); HEMATOCRIT 40.6 % (36.0-47.0); HEMOGLOBIN 12.7 g/dl (12.0-15.5); LYMPH # 1.4 10^3/uL (1.5-5.0); LYMPH % 17.1 % (24.0-44.0); MEAN CORPUSCULAR HEMOGLOBIN 30.2 pg (27.0-33.0); MEAN CORPUSCULAR HGB CONC 31.3 g/dl (32.0-36.5); MEAN CORPUSCULAR VOLUME 96.7 fl (80.0-96.0); MONO # 0.5 10^3/uL (0.0-0.8); MONO % 6.6 % (2.0-8.0); NEUTROPHILS % 74.8 % (36.0-66.0); PLATELET COUNT, AUTOMATED 259 10^3/uL (150-450)
[2024-04-21 20:05] LABS: ALBUMIN 3.7 G/DL (3.2-5.2); ALKALINE PHOSPHATASE 80 U/L (35-104); ALT/SGPT 16 U/L (7.0-40); AST/SGOT 47 U/L (<34); BILIRUBIN,DIRECT < 0.1 MG/DL (<0.4); BILIRUBIN,TOTAL 0.2 MG/DL (0.3-1.2); BLOOD UREA NITROGEN 35 MG/DL (9-23); CALCIUM LEVEL 10.3 MG/DL (8.3-10.6); CARBON DIOXIDE LEVEL 24 MMOL/L (20-31); CHLORIDE LEVEL 108 MMOL/L (98-107); CREATININE FOR GFR 1.16 MG/DL (0.55-1.30); GLUCOSE, FASTING 108 MG/DL (74-106); POTASSIUM SERUM 5.8 MMOL/L (3.5-5.1); SODIUM LEVEL 142 MMOL/L (136-145); TOTAL PROTEIN 6.8 G/DL (5.7-8.2)
[2024-04-21] MEDS: NS (Normal Saline) 0.9% 1,000 ML IV ONE (20:54)
[2024-04-21 21:01] VITALS: TEMP 97
[2024-04-21 21:19] LABS: CALCIUM LEVEL 10.5 MG/DL (8.3-10.6); CREATININE FOR GFR 1.14 MG/DL (0.55-1.30)
[2024-04-21 22:16] VITALS: BP 124/60; O2SAT 95
== END 2024-04-21 23:00 | disposition home or self-care (01) ==
LOC: M ED 17:40 → EDBD 17:40 → M ED 23:00
DX: R19.7 Diarrhea, unspecified (principal); I10 Essential (primary) hypertension; K21.9 Gastro-esophageal reflux disease without esophagitis; G47.33 Obstructive sleep apnea (adult) (pediatric); Z88.0 Allergy status to penicillin; Z88.8 Allergy status to other drugs, medicaments and biological substances; Z79.1 Long term (current) use of non-steroidal anti-inflammatories (NSAID); Z79.899 Other long term (current) drug therapy; Z79.810 Long term (current) use of selective estrogen receptor modulators (SERMs)

== ENCOUNTER → 2024-06-15 | Outpatient (CLI) | payer MEDICARE ==
[~2024-06-15] MED LIST changes: +VANC125C13 PO; -VANC125C3 PO
[2024-06-15 15:57] LABS: BASO % 0.8 % (0.0-1.0); EOS # 0.2 10^3/uL (0.0-0.5); EOS % 4.6 % (0.0-3.0); HEMATOCRIT 37.7 % (36.0-47.0); HEMOGLOBIN 11.3 g/dl (12.0-15.5); LYMPH # 1.7 10^3/uL (1.5-5.0); LYMPH % 33.1 % (24.0-44.0); MEAN CORPUSCULAR HEMOGLOBIN 30.8 pg (27.0-33.0); MEAN CORPUSCULAR VOLUME 102.7 fl (80.0-96.0); MONO # 0.4 10^3/uL (0.0-0.8); MONO % 8.4 % (2.0-8.0); NEUTROPHILS # 2.7 10^3/uL (1.5-8.5); NEUTROPHILS % 52.9 % (36.0-66.0); PLATELET COUNT, AUTOMATED 272 10^3/uL (150-450); RED BLOOD COUNT 3.67 10^6/uL (4.00-5.40)
[2024-06-15 17:03] LABS: ALBUMIN 3.5 G/DL (3.2-5.2); BILIRUBIN,TOTAL 0.3 MG/DL (0.3-1.2); CALCIUM LEVEL 9.8 MG/DL (8.3-10.6); CHOLESTEROL RISK RATIO 2.32 (<5); CREATININE FOR GFR 1.18 MG/DL (0.55-1.30); FERRITIN 239.1 NG/ML (7.3-270.7); GLOMERULAR FILTRATION RATE 46.1 (>32); HDL CHOLESTEROL 55.1 MG/DL (>40); LDL CHOLESTEROL 43.1 MG/DL (<100); MAGNESIUM LEVEL 2.1 MG/DL (1.8-2.4); NON-HDL-C 72.9 MG/DL; PERCENT SATURATION 17.8 % (13.2-45.0); POTASSIUM SERUM 4.7 MMOL/L (3.5-5.1); PTH INTACT 125.5 PG/ML (18.5-88.0); TOTAL 25(OH) VITAMIN D 42.6 NG/ML (20.0-100.0); TOTAL PROTEIN 6.4 G/DL (5.7-8.2)
[2024-06-15 17:09] LABS: HEMOGLOBIN A1c 5.2 % (4.0-6.0)
== END ==
LOC: M RAD 14:49
PROVIDERS: ATTEND Family Medicine
DX: D50.9 Iron deficiency anemia, unspecified (principal); M47.816 Spondylosis 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y or radiculopathy, lumbar region; I50.32 Chronic diastolic (congestive) heart failure; E78.5 Hyperlipidemia, unspecified; R73.01 Impaired fasting glucose; E55.9 Vitamin D deficiency, unspecified; E21.3 Hyperparathyroidism, unspecified; M46.1 Sacroiliitis, not elsewhere classified

== ENCOUNTER 2024-06-21 14:36 | Outpatient (CLI) | payer MEDICARE ==
[~2024-06-21] VITALS: Ht 154.9 cm; Wt 62.0 kg
[2024-06-21 15:35] VITALS: BP 120/85; O2SAT 97
[2024-06-21] MEDS: ZOLEDRONIC ACID 5 MG in IV 1 EA IV ONE (15:36)
== END 2024-06-21 16:25 ==
LOC: M INFU 14:36
PROVIDERS: ATTEND Family Medicine
DX: M81.0 Age-related osteoporosis without current pathological fracture (principal); Z88.0 Allergy status to penicillin; Z88.1 Allergy status to other antibiotic agents; Z88.8 Allergy status to other drugs, medicaments and biological substances
CPT/HCPCS: 96365; J3489

== ENCOUNTER 2024-08-09 04:08 | Emergency (ER) | payer MEDICARE ==
[~2024-08-09] VITALS: Ht 152.4 cm; Wt 55.5 kg
[2024-08-09 05:01] LABS: BASO % 0.6 % (0.0-1.0); EOS # 0.2 10^3/uL (0.0-0.5); EOS % 2.2 % (0.0-3.0); HEMATOCRIT 37.7 % (36.0-47.0); HEMOGLOBIN 11.6 g/dl (12.0-15.5); LYMPH # 0.7 10^3/uL (1.5-5.0); LYMPH % 10.3 % (24.0-44.0); MEAN CORPUSCULAR HEMOGLOBIN 31.7 pg (27.0-33.0); MEAN CORPUSCULAR HGB CONC 30.8 g/dl (32.0-36.5); MONO # 0.6 10^3/uL (0.0-0.8); MONO % 8.2 % (2.0-8.0); NEUTROPHILS # 5.4 10^3/uL (1.5-8.5); NEUTROPHILS % 78.4 % (36.0-66.0); PLATELET COUNT, AUTOMATED 197 10^3/uL (150-450); RED BLOOD COUNT 3.66 10^6/uL (4.00-5.40); WHITE BLOOD COUNT 6.9 10^3/uL (4.0-10.0)
[2024-08-09 05:36] LABS: BILIRUBIN,TOTAL 0.3 MG/DL (0.3-1.2); CALCIUM LEVEL 10.4 MG/DL (8.3-10.6); CREATININE FOR GFR 1.41 MG/DL (0.55-1.30); GLOMERULAR FILTRATION RATE 36.1 (>32); POTASSIUM SERUM 4.4 MMOL/L (3.5-5.1); TOTAL PROTEIN 6.5 G/DL (5.7-8.2)
[2024-08-09 06:22] LABS: THYROID STIMULATING HORMONE 2.733 uIU/ML (0.55-4.78)
[2024-08-09 06:37] LABS: KETONE, URINE AUTO RFX NEGATIVE (NEGATIVE); MUCUS, URINE RFX SMALL (NEGATIVE); NITRITE, URINE AUTO RFX NEGATIVE (NEGATIVE); RBC, URINE AUTO RFX 2 /HPF (0-3); SQUAM EPITHELIAL CELL UR AURFX 0 /HPF (0-6)
[2024-08-09 06:38] LABS: LEUKOCYTE ESTERASE UR AUTO RFX 3+ (NEGATIVE); WBC, URINE AUTO RFX 23 /HPF (0-3)
[2024-08-09] MEDS ORDERED: ACETAMINOPHEN 500 MG TAB PO ONE (08:20)
[2024-08-09] MEDS: NORCO, ANEXSIA 5/325MG TABLET (HYDROcodone/ACETAMINOPHEN) PO ONE (08:30)
[2024-08-09 11:55] VITALS: BP 136/61; TEMP 97; O2SAT 96
== END 2024-08-09 11:59 | disposition home or self-care (01) ==
LOC: M ED 04:08
DX: S83.92XA Sprain of unspecified site of left knee, initial encounter (principal); Y92.9 Unspecified place or not applicable; Y93.9 Activity, unspecified; Y99.9 Unspecified external cause status; Z86.711 Personal history of pulmonary embolism; Z86.718 Personal history of other venous thrombosis and embolism; Z88.0 Allergy status to penicillin; Z88.1 Allergy status to other antibiotic agents; Z88.6 Allergy status to analgesic agent; Z88.8 Allergy status to other drugs, medicaments and biological substances; Z79.1 Long term (current) use of non-steroidal anti-inflammatories (NSAID); Z79.899 Other long term (current) drug therapy; Z79.810 Long term (current) use of selective estrogen receptor modulators (SERMs)

== ENCOUNTER → 2024-12-20 | Outpatient (CLI) | payer MEDICARE ==
[~2024-12-20] MED LIST changes: +SLOW1TAB3 PO; -SLOWTAB2 PO
== END ==
LOC: M WHC 13:59
PROVIDERS: ATTEND Family Medicine
DX: Z12.31 Encounter for screening mammogram for malignant neoplasm of breast (principal); R92.323 Mammographic fibroglandular density, bilateral breasts

== ENCOUNTER 2025-02-08 15:05 | Emergency (ER) | payer MEDICARE ==
[~2025-02-08] VITALS: Ht 160 cm; Wt 61.9 kg
[2025-02-08] MEDS: ACETAMINOPHEN 500 MG TAB PO ONE (19:30)
[2025-02-08 22:02] VITALS: BP 170/78; TEMP 98.1; O2SAT 98
== END 2025-02-08 22:23 | disposition home or self-care (01) ==
LOC: M ED 15:05
DX: K40.90 Unilateral inguinal hernia, without obstruction or gangrene, not specified as recurrent (principal); D35.02 Benign neoplasm of left adrenal gland; I10 Essential (primary) hypertension; E78.5 Hyperlipidemia, unspecified; Z88.0 Allergy status to penicillin; Z88.1 Allergy status to other antibiotic agents; Z88.6 Allergy status to analgesic agent; Z88.8 Allergy status to other drugs, medicaments and biological substances; Z79.1 Long term (current) use of non-steroidal anti-inflammatories (NSAID); Z79.899 Other long term (current) drug therapy; Z79.810 Long term (current) use of selective estrogen receptor modulators (SERMs)